=== PATIENT | female | born 1945 | race Caucasian/White ===

== ENCOUNTER 2016-10-23 11:32 | Inpatient (IN) | payer OTHER, MEDICARE ==
[~2016-10-23] VITALS: Ht 162.6 cm; Wt 121.4 kg
[2016-10-23] VITALS (14 sets, daily range): BP systolic 80–218; BP diastolic 55–96; PULSE 65–120; RESP 16–20; TEMP 98.4; O2SAT 95–100
[~2016-10-23 11:32] MED LIST: BACT800T5 PO; HYDR-2768 PO; LANTUS2P SC; LOVA1TAB47 PO; METO25 PO; PRIN20TA2 PO; PROP20TA3 PO
[2016-10-23] MEDS ORDERED: HYDR-3288 PO (11:54)
[2016-10-23] MEDS ORDERED: FURO20TA PO (11:54)
[2016-10-23] MEDS ORDERED: LANTUS2P SQ (11:54)
[2016-10-23] MEDS ORDERED: ASPIRIN 81 MG CHEW TAB PO ONE (12:15)
[2016-10-23] MEDS ORDERED: SODIUM CHLORIDE 0.9% FLUSH 10 ML FLUSH IVF PRN (12:15)
[2016-10-23] MEDS ORDERED: SODIUM CHLORID 0.9% 500 ML INJ 500 ML IV ONE (12:15)
[2016-10-23 12:26] LABS: AUTOMATED NEUTROPHIL # 10.1 TH/MM3 (1.8-7.7); BASOPHIL # 0.1 TH/MM3 (0-0.2); BASOPHIL % 0.6 % (0.0-2.0); EOSINOPHIL # 0.2 TH/MM3 (0-0.4); EOSINOPHIL % 1.5 % (0.0-4.0); HEMATOCRIT 32.9 % (35.0-46.0); LYMPH % 17.9 % (9.0-44.0); LYMPHOCYTE # 2.3 TH/MM3 (1.0-4.8); MEAN CELL VOLUME 84.2 FL (80.0-100.0); MEAN CORPUSCULAR HEMOGLOBIN 26.5 PG (27.0-34.0); MEAN CORPUSCULAR HGB CONC 31.4 % (32.0-36.0); MONO % 2.2 % (0.0-8.0); NEUT % 77.8 % (16.0-70.0); PLATELET COUNT 524 TH/MM3 (150-450); RED BLOOD COUNT 3.91 MIL/MM3 (4.00-5.30); RED CELL DISTRIBUTION WIDTH 20.2 % (11.6-17.2)
[2016-10-23 12:28] LABS: HEMO FLAGS AUTO DIFF
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
[2016-10-23 12:36] LABS: CHLORIDE 104 MEQ/L (98-107); POTASSIUM 5.7 MEQ/L (3.5-5.1); SODIUM (NA) 135 MEQ/L (136-145)
[2016-10-23 12:40] LABS: ANION GAP 10 MEQ/L (5-15); BICARBONATE 21.2 MEQ/L (21.0-32.0); BLOOD UREA NITROGEN 64 MG/DL (7-18); MAGNESIUM 2.2 MG/DL (1.5-2.5)
[2016-10-23 12:41] LABS: APTT (PATIENT) 28.7 SEC (24.3-30.1); PROTHROMBIN TIME - PATIENT 10.7 SEC (9.8-11.6)
[2016-10-23 12:43] LABS: ALT (GPT) 18 U/L (10-53); AST (GOT) 14 U/L (15-37); GLOMERULAR FILTRATION RATE 22 ML/MIN (>89)
[2016-10-23 12:44] LABS: TOTAL BILIRUBIN ADULT 0.4 MG/DL (0.2-1.0)
[2016-10-23 12:46] LABS: ALKALINE PHOSPHATASE 203 U/L (45-117)
[2016-10-23 12:49] LABS: ROULEAUX PRESENT (NORMAL)
[2016-10-23 12:50] LABS: PLATELET ESTIMATE SMEAR HIGH (NORMAL); PLATELET MORPHOLOGY NORMAL (NORMAL); SCAN/DIFF AUTO DIFF CONFIRMED
[2016-10-23 12:52] LABS: CREATINE KINASE 31 U/L (26-192)
--- NOTE | 2016-10-23 13:34 | RADHPO ---
EXAM DATE/TIME: 10/23/2016 12:53 [facility] COMPARISON: CHEST SINGLE AP, October 08, 2014, 20:37. INDICATIONS : Shortness of breath since April and tachycardic at last doctors visit; sent by doctor. MEDICAL HISTORY : Hypertension. Diabetes mellitus type II. CVA. SURGICAL HISTORY : None. ENCOUNTER: Initial ACUITY: 4 - 6 months PAIN SCORE: 0/10 LOCATION: Bilateral chest FINDINGS: Submaximal inspiration with elevation of both hemidiaphragms. No definite areas of consolidation see n. The heart is upper limits normal size. CONCLUSION: No gross abnormality seen on this semiupright film in mid expiration. Anthony Lockhart MD on October 23, 2016 at 13:32 Board Certified Radiologist. This report was verified electronically.
[2016-10-23] MEDS ORDERED: MORPHINE SULFATE 4 MG/ML INJ SQ ONE (13:45)
[2016-10-23] MEDS ORDERED: MORPHINE SULFATE 4 MG/ML INJ IV PUSH ONE (14:00)
[2016-10-23] MEDS ORDERED: INSULIN HUMAN REGULAR 1,000 UNITS/10 ML VIAL IV PUSH ONE ×2 (14:45→19:15)
[2016-10-23] MEDS ORDERED: SODIUM BICARBONATE 8.4% SOLN 50 MEQ/50 ML VIAL SLOW IVP ONE (14:45)
[2016-10-23] MEDS ORDERED: CALCIUM GLUCONATE 10% 1 GM/10 ML VIAL SLOW IVP ONE (14:45)
[2016-10-23] MEDS ORDERED: DEXTROSE 50% IN WATER 50 ML VIAL(D50) IV PUSH ONE ×2 (14:45→19:15)
[2016-10-23] MEDS ORDERED: SODIUM POLYSTYRENE SULFONATE SUSP 15 GM/60 ML CUP PO ONE (14:45)
--- NOTE | 2016-10-23 15:21 | RADHPO ---
EXAM DATE/TIME: 10/23/2016 13:47 [facility] COMPARISON: No previous studies available for comparison. INDICATIONS : Bilateral leg swelling and pain. MEDICAL HISTORY : Hypercholesterolemia. Hypertension. Stroke. Arthritis. Diabetes. Morbid obese. SURGICAL HISTORY : Appendectomy.Cholecystectomy. Total knee replacement, left. ENCOUNTER: Initial ACUITY: 4 - 6 months PAIN SCORE: 6/10 LOCATION: Bilateral legs. TECHNIQUE: Venous ultrasound of the left and right leg was performed from the inguinal ligament to the proximal calf. Real-time, color Doppler and spectral tracing, compression and augmentation techniques were us ed. FINDINGS: RIGHT LEG: Prominent soft tissue swelling does compromise image quality. There is normal compressibility of the deep venous system from the inguinal region to the proximal calf. No echogenic clot is seen in the lumen of the common femoral, femoral, popliteal, and posterior tibial veins. There is a normal respo nse of the venous system to distal augmentation. LEFT LEG: Prominent soft tissue swelling does compromise image quality. There is normal compressibility of the deep venous system from the inguinal region to the proximal calf. No echogenic clot is seen in the lumen of the common femoral, femoral, popliteal, and posterior tibial veins. There is a normal respo nse of the venous system to distal augmentation. CONCLUSION: The study is negative for deep venous thrombosis bilateral lower extremity. Anthony Lockhart MD on October 23, 2016 at 15:09 Board Certified Radiologist. This report was verified electronically.
[2016-10-23] MEDS ORDERED: VANCOMYCIN INJ 1,000 MG in SODIUM CHLOR 0.9% 250 ML INJ 250 ML IV ONE (15:30)
[2016-10-23] MEDS ORDERED: cefTRIAXone INJ 1,000 MG in SODIUM CHLORIDE 0.9% INJ 100 ML IV ONE (15:45)
[2016-10-23] MEDS ORDERED: DEXTROSE 50% IN WATER 50 ML VIAL(D50) IV PUSH PRN (15:45)
[2016-10-23] MEDS ORDERED: GLUCAGON 1 MG/ML VIAL OTHER PRN (15:45)
[2016-10-23] MEDS ORDERED: SODIUM CHLOR 0.9% 1000 ML INJ 1,000 ML IV SCH (15:48)
[2016-10-23] MEDS ORDERED: ACETAMINOPHEN 325 MG TAB PO PRN (16:00)
[2016-10-23] MEDS ORDERED: NALOXONE HCL 0.4 MG/ML AMP IV PRN (16:00)
[2016-10-23] MEDS ORDERED: guaiFENesin/CODEINE SYRUP 200 MG/20 MG/10 ML CUP PO PRN (16:00)
[2016-10-23] MEDS ORDERED: NITROGLYCERIN 0.4 MG SL 25 TABS/BTL SL PRN (16:00)
[2016-10-23] MEDS ORDERED: BISACODYL 10 MG SUPP RECTAL PRN (16:00)
[2016-10-23] MEDS ORDERED: INSULIN HUMAN REGULAR 1,000 UNITS/10 ML VIAL SQ ONE (16:15)
[2016-10-23] MEDS: INSULIN ASPART SUPPLEMENTAL SCALE SQ SCH ×2 (16:36→21:00)
[2016-10-23 16:48] LABS: BLOOD, URINE LARGE (NEG); GLUCOSE,URINE NEG (NEG); KETONE, URINE NEG (NEG); NITRITE,URINE NEG (NEG); PH, URINE 5.5 (5.0-8.5)
[2016-10-23 17:04] LABS: URINE COLOR YELLOW (YELLW/STRAW)
[2016-10-23 17:05] LABS: MUCUS URINE FEW /lpf (OCC)
[2016-10-23 17:06] LABS: BACTERIA, URINE FEW /hpf; COMMENT (UR) CULTURE INDICATED; CULTURE IF INDICATED CULTURE INDICATED; SQUAMOUS EPITHELIAL CELL URINE 0-5 /hpf (0-5)
[2016-10-23] MEDS: PIPERACIL-TAZO 3.375 GM PREMIX 50 ML IV SCH (18:09)
[2016-10-23 18:14] LABS: POTASSIUM 5.7 MEQ/L (3.5-5.1)
[2016-10-23] MEDS: HEPARIN SODIUM - SQ 10,000 UNITS/ML VIAL SQ SCH (18:35)
[2016-10-23] MEDS: MORPHINE SULFATE 4 MG/ML INJ IV PRN (18:57)
[2016-10-23 18:58] LABS: CREATINE KINASE 34 U/L (26-192)
[2016-10-23] MEDS ORDERED: cloNIDine HCL 0.1 MG TAB PO PRN (19:15)
[2016-10-23] MEDS ORDERED: RESP: ALBUTEROL CONC 2.5 MG/0.5 ML NEB INH ONE (19:15)
[2016-10-23] MEDS ORDERED: CALCIUM GLUCONATE 10% 1 GM/10 ML VIAL IV ONE (19:15)
[2016-10-23] MEDS ORDERED: hydrALAZINE HCL 20 MG/ML VIAL IV PRN (19:15)
[2016-10-23 19:49] LABS: FERRITIN 23 NG/ML (8-252); TRANSFERRIN IRON PROFILE 249 MG/DL (200-360)
[2016-10-23] MEDS ORDERED: INSULIN DETEMIR 100 UNITS/ML VIAL SQ SCH (21:00)
[2016-10-23] MEDS: SODIUM CHLORIDE 0.9% FLUSH 10 ML FLUSH IV FLUSH SCH (21:00)
[2016-10-23 21:26] LABS: HEMOGLOBIN A1a 1.2 %; HEMOGLOBIN A1b 2.7 %; HEMOGLOBIN Ao 78.4 %; HEMOGLOBIN P3 7.4 %
[2016-10-23] MEDS: SODIUM POLYSTYRENE SULFONATE SUSP 15 GM/60 ML CUP PO SCH (22:27)
[2016-10-23] MEDS: guaiFENesin E.R. 600 MG TAB PO SCH (23:30)
--- NOTE | 2016-10-23 23:51 | EKG ---
Date Performed: 10/23/2016 Time Performed: 12:11:26 PTAGE: 71 years EKG: Possible ectopic atrial tachycardia Baseline artifact Lateral ST-T changes may be due to my ocardial ischemia Low QRS voltages in precordial leads Abnormal ECG PREVIOUS TRACING : 10/08/2014 20.47 Compared to the previous tracing, previously normal Sinus r hym DOCTOR: Axel Hadley Interpretating Date/Time 10/23/2016 23:50:22
[2016-10-24] VITALS (51 sets, daily range): BP systolic 94–153; BP diastolic 41–82; PULSE 50–116; RESP 3–28; TEMP 97.3–99.4; O2SAT 86–100
[2016-10-24 00:40] LABS: POTASSIUM 5.7 MEQ/L (3.5-5.1)
[2016-10-24 00:56] LABS: BICARBONATE 22.2 MEQ/L (21.0-32.0); MAGNESIUM 2.1 MG/DL (1.5-2.5)
[2016-10-24] MEDS: PIPERACIL-TAZO 3.375 GM PREMIX 50 ML IV SCH ×2 (01:06→06:52)
[2016-10-24] MEDS ORDERED: CALCIUM GLUCONATE 10% 1 GM/10 ML VIAL IV PUSH ONE (03:45)
[2016-10-24] MEDS ORDERED: DEXTROSE 50% IN WATER 50 ML VIAL(D50) IV PUSH ONE (03:45)
[2016-10-24] MEDS ORDERED: SODIUM POLYSTYRENE SULFONATE 30 GM/120 ML ENEMA RECTAL ONE (03:45)
[2016-10-24] MEDS ORDERED: INSULIN HUMAN REGULAR 1,000 UNITS/10 ML VIAL IV PUSH ONE ×2 (03:45→08:45)
--- NOTE | 2016-10-24 04:20 | RADHPO ---
EXAM DATE/TIME: 10/24/2016 04:05 [facility] COMPARISON: No previous studies available for comparison. INDICATIONS : Short of breath. MEDICAL HISTORY : Hypertension. Diabetes mellitus type II. CVA. SURGICAL HISTORY : None. ENCOUNTER: Subsequent ACUITY: 4 - 6 months PAIN SCORE: Non-responsive. LOCATION: Bilateral chest FINDINGS: A single view of the chest demonstrates the lungs to be symmetrically aerated without evidence of mas s, infiltrate or effusion. Bilateral pulmonary hilar vascular congestion. The cardiomediastinal con tours are unremarkable. Osseous structures are intact. CONCLUSION: Mild pulmonary vascular congestion increased from the previous study Yusuf Meza MD on October 24, 2016 at 4:18 Board Certified Radiologist. This report was verified electronically.
[2016-10-24] MEDS ORDERED: SODIUM POLYSTYRENE SULFONATE SUSP 15 GM/60 ML CUP RECTAL ONE (05:00)
[2016-10-24] MEDS: HEPARIN SODIUM - SQ 10,000 UNITS/ML VIAL SQ SCH ×2 (06:54→18:36)
[2016-10-24] MEDS: INSULIN ASPART SUPPLEMENTAL SCALE SQ SCH ×3 (07:00→22:34)
[2016-10-24] MEDS ORDERED: FUROSEMIDE 40 MG/4 ML VIAL IV PUSH ONE (07:15)
[2016-10-24 07:30] LABS: BLOOD GAS BASE EXCESS -6.4 mmol/L (-2-2); BLOOD GAS CARBOXYHEMOGLOBIN 1.4 % (0-4); BLOOD GAS HCO3 23 mmol/L (22-26); BLOOD GAS O2 HGB SATURATION 92 % (90-100); BLOOD GAS OXYGEN CONTENT 12.2 Vol % (12.0-20.0); BLOOD GAS PCO2 84 mmHg (38-42); BLOOD GAS PO2 81 mmHg (61-120); BLOOD GAS TOTAL HGB 9.4 G/DL (12.0-16.0)
[2016-10-24 07:31] LABS: CRITICAL VALUE YES; DRAW SITE RT RADIAL; FIO2 28 %; LITER FLOW 2 L/M; NUMBER OF ARTERIAL PUNCTURES 1; OXYGEN DEVICE NASAL CANNULA; STAT YES; ULNAR PULSE PRESENT
[2016-10-24] MEDS ORDERED: SUCCINYLCHOLINE CHLORIDE 200 MG/10 ML VIAL ONE (07:37)
[2016-10-24 07:38] LABS: AUTOMATED NEUTROPHIL # 14.3 TH/MM3 (1.8-7.7); BASOPHIL # 0.6 TH/MM3 (0-0.2); BASOPHIL % 3.6 % (0.0-2.0); EOSINOPHIL # 0.1 TH/MM3 (0-0.4); EOSINOPHIL % 0.7 % (0.0-4.0); HEMATOCRIT 31.8 % (35.0-46.0); LYMPH % 8.5 % (9.0-44.0); LYMPHOCYTE # 1.4 TH/MM3 (1.0-4.8); MEAN CORPUSCULAR HEMOGLOBIN 26.1 PG (27.0-34.0); MONO % 3.1 % (0.0-8.0); NEUT % 84.1 % (16.0-70.0); PLATELET COUNT 512 TH/MM3 (150-450); RED BLOOD COUNT 3.66 MIL/MM3 (4.00-5.30); RED CELL DISTRIBUTION WIDTH 20.8 % (11.6-17.2); WHITE BLOOD COUNT 16.9 TH/MM3 (4.0-11.0)
[2016-10-24] MEDS ORDERED: ETOMIDATE 20 MG/10 ML VIAL ONE (07:38)
[2016-10-24 07:41] LABS: HEMO FLAGS AUTO DIFF; POTASSIUM 6.1 MEQ/L (3.5-5.1)
[2016-10-24 07:44] LABS: BICARBONATE 22.4 MEQ/L (21.0-32.0)
--- NOTE | 2016-10-24 07:54 | PD ---
Physical Exam Date Seen by Provider: Oct 24, 2016 Time Seen by Provider: 07:52 Narrative I was called by Dr. Leahy to intubate the patient. She was unresponsive and her ABG was suggestive of Respiratory Acidosis. The son just came at that time and he spoke with the son. I was present during the discussion. He agreed to intubation. Please refer to my procedure note Data Data Last Documented VS Vital Signs Date Time Temp Pulse Resp B/P Pulse Ox O2 Delivery O2 Flow Rate FiO2 10/23/16 15:43 110 20 104/73 96 10/23/16 11:39 98.4 Orders Electrocardiogram (10/23/16 12:07) B-Type Natriuretic Peptide (10/23/16 12:07) Ckmb (Isoenzyme) Profile (10/23/16 12:07) Complete Blood Count With Diff (10/23/16 12:07) Comprehensive Metabolic Panel (10/23/16 12:07) Magnesium (Mg) (10/23/16 12:07) Prothrombin Time / Inr (Pt) (10/23/16 12:07) Act Partial Throm Time (Ptt) (10/23/16 12:07) Troponin I (10/23/16 12:07) Chest, Single Ap (10/23/16 12:07) Ecg Monitoring (10/23/16 12:07) Iv Access Insert/Monitor (10/23/16 12:07) Oximetry (10/23/16 12:07) Aspirin Chew (Aspirin Chew) (10/23/16 12:15) Sodium Chloride 0.9% Flush (Ns Flush) (10/23/16 12:15) Sodium Chlorid 0.9% 500 Ml Inj (Ns 500 M (10/23/16 12:15) Us Leg Venous Doppler Bilat (10/23/16 ) Blood Culture (10/23/16 12:10) Bedside Glucose PARK.AC&HS (10/23/16 12:10) Morphine Inj (Morphine Inj) (10/23/16 13:45) Morphine Inj (Morphine Inj) (10/23/16 14:00) Calcium Gluconate Inj (Calcium Gluconate (10/23/16 14:45) Insulin Human Regular Inj (Novolin R Inj (10/23/16 14:45) Dextrose 50% In [place] (Vial) Inj (D50w (Vi (10/23/16 14:45) Sodium Bicarbonate 8.4% Inj (Sodium Bica (10/23/16 14:45) Sodium Polysty Sulfate Liq (Kayexalate L (10/23/16 14:45) Vancomycin Inj (Vancomycin Inj) (10/23/16 15:30) Blood Glucose Goal (Criteria) (10/23/16 15:39) Hypoglycemia 51 - 69 Mg/Dl (10/23/16 15:39) Hypoglycemia 50 Mg/Dl Or < (10/23/16 15:39) Notify Dr: Other (10/23/16 15:39) Dextrose 50% In [place] (Vial) Inj (D50w (Vi (10/23/16 15:45) Glucagon Inj (Glucagon Inj) (10/23/16 15:45) Insulin Aspart Supplemtl Scale (Novolog (10/23/16 16:00) Admit Order (Ed Use Only) (10/23/16 15:55) Labs Laboratory Tests Test 10/23/16 12:05 White Blood Count 13.0 TH/MM3 Red Blood Count 3.91 MIL/MM3 Hemoglobin 10.4 GM/DL Hematocrit 32.9 % Mean Corpuscular Volume 84.2 FL Mean Corpuscular Hemoglobin 26.5 PG Mean Corpuscular Hemoglobin 31.4 % Concent Red Cell Distribution Width 20.2 % Platelet Count 524 TH/MM3 Mean Platelet Volume 8.2 FL Neutrophils (%) (Auto) 77.8 % Lymphocytes (%) (Auto) 17.9 % Monocytes (%) (Auto) 2.2 % Eosinophils (%) (Auto) 1.5 % Basophils (%) (Auto) 0.6 % Neutrophils # (Auto) 10.1 TH/MM3 Lymphocytes # (Auto) 2.3 TH/MM3 Monocytes # (Auto) 0.3 TH/MM3 Eosinophils # (Auto) 0.2 TH/MM3 Basophils # (Auto) 0.1 TH/MM3 CBC Comment AUTO DIFF Differential Comment AUTO DIFF CONFIRMED Platelet Estimate HIGH Platelet Morphology Comment NORMAL Basophilic Stippling FAINT Rouleau PRESENT Prothrombin Time 10.7 SEC Prothromb Time International 1.0 RATIO Ratio Activated Partial 28.7 SEC Thromboplast Time Sodium Level 135 MEQ/L Potassium Level 5.7 MEQ/L Chloride Level 104 MEQ/L Carbon Dioxide Level 21.2 MEQ/L Anion Gap 10 MEQ/L Blood Urea Nitrogen 64 MG/DL Creatinine 2.20 MG/DL Estimat Glomerular Filtration 22 ML/MIN Rate Random Glucose 314 MG/DL Calcium Level 8.5 MG/DL Magnesium Level 2.2 MG/DL Total Bilirubin 0.4 MG/DL Aspartate Amino Transf 14 U/L (AST/SGOT) Alanine Aminotransferase 18 U/L (ALT/SGPT) Alkaline Phosphatase 203 U/L Total Creatine Kinase 31 U/L Troponin I 0.13 NG/ML B-Type Natriuretic Peptide 38 PG/ML Total Protein 8.0 GM/DL Albumin 2.6 GM/DL [facility] Supervised Visit with RUFINO: No Procedures Procedure Narrative After the risks and benefits were discussed the following procedure was performed: INTUBATION: The patient was put in optimal position for the procedure. Rapid sequence intubation was initiated by me using 20 milligrams of etomidate IV and 100 milligrams of succinylcholine IV. The patient was intubated with a 7.5 cuffed endotracheal tube. Tube placement was confirmed by visualization of the tube and balloon passing through the cords, capnometry and subsequent chest x-ray. Breath sounds were equal and well aerated bilaterally postintubation. No breath sounds over stomach. Patient tolerated procedure well. It was a very difficult intubation and a bougie was used to assist the intubation. Diagnosis Primary Impression: Hyperkalemia Additional Impressions: Hyperglycemia Renal insufficiency Sepsis NSTEMI (non-ST elevated myocardial infarction) Riley Solorio MD Oct 24, 2016 07:53
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
--- NOTE | 2016-10-24 08:26 | RADHPO ---
EXAM DATE/TIME: 10/24/2016 08:13 [facility] COMPARISON: CHEST SINGLE AP, October 24, 2016, 4:05. INDICATIONS : Post intubation. MEDICAL HISTORY : Hypercholesterolemia. Hypertension. Stroke. Arthritis. Diabetes. Morbid obese. SURGICAL HISTORY : Umbilical hernia repair. Appendectomy.Cholecystectomy. Total knee replacement, left. ENCOUNTER: Subsequent ACUITY: 1 day PAIN SCORE: Non-responsive. LOCATION: chest FINDINGS: A single view of the chest demonstrates diffuse interstitial vascular prominence and bibasilar airspa ce disease. Blunted costophrenic angles indicative of bilateral effusions. Endotracheal tube has been placed and is just above the kimberlyn. Heart is obscured by basilar opacity but does appear mildly enlarged. CONCLUSION: Interval placement of endotracheal tube which is approximately 1 cm above the kimberlyn. Interstitial vascular congestion and bibasilar airspace disease. Small bilateral effusions. Kenny Hagen MD on October 24, 2016 at 8:23 Board Certified Radiologist. This report was verified electronically.
[2016-10-24] MEDS ORDERED: SODIUM POLYSTYRENE SULFONATE SUSP 15 GM/60 ML CUP PO ONE (08:45)
[2016-10-24] MEDS ORDERED: DEXTROSE 50% IN WATER 50 ML SYRINGE IV ONE (08:45)
[2016-10-24] MEDS ORDERED: SODIUM BICARBONATE 8.4% INJ 50 MEQ/50 ML SYR IV PUSH ONE (08:45)
[2016-10-24 08:49] LABS: SCAN/DIFF AUTO DIFF CONFIRMED
[2016-10-24] MEDS ORDERED: CALCIUM GLUCONATE INJ 1 GM in SODIUM CHLORIDE 0.9% INJ 100 ML IV ONE (09:00)
[2016-10-24] MEDS: PROPOFOL 1000 MG/100 ML INJ 100 ML IV SCH ×3 (10:52→22:33)
[2016-10-24 11:08] LABS: BLOOD GAS BASE EXCESS -3.3 mmol/L (-2-2); BLOOD GAS CARBOXYHEMOGLOBIN 1.5 % (0-4); BLOOD GAS HCO3 22 mmol/L (22-26); BLOOD GAS METHEMOGLOBIN 1.1 % (0-2); BLOOD GAS O2 HGB SATURATION 96 % (90-100); BLOOD GAS OXYGEN CONTENT 12.5 Vol % (12.0-20.0); BLOOD GAS PCO2 49 mmHg (38-42); BLOOD GAS PO2 115 mmHg (61-120); BLOOD GAS TOTAL HGB 9.1 G/DL (12.0-16.0); CRITICAL VALUE YES; OXYGEN DEVICE VENTILATOR; TEMP CORR TO 98.6
[2016-10-24 11:10] LABS: DRAW SITE RT RADIAL; FIO2 50 %; NUMBER OF ARTERIAL PUNCTURES 1; STAT NO; ULNAR PULSE PRESENT; VENT SETTINGS AC/16/500/5PEEP
[2016-10-24] MEDS: PIPERACIL-TAZO 2.25 GM PREMIX 50 ML IV SCH ×2 (13:13→19:05)
[2016-10-24] MEDS: PANTOPRAZOLE SODIUM 40 MG VIAL IV PUSH SCH (13:33)
[2016-10-24] MEDS: FUROSEMIDE 40 MG/4 ML VIAL IV PUSH SCH ×2 (13:33→18:36)
[2016-10-24] MEDS: SODIUM POLYSTYRENE SULFONATE SUSP 15 GM/60 ML CUP PO SCH (13:43)
--- NOTE | 2016-10-24 13:43 | MB ---
cc: PRIYANKA SHANNON M.D. DATE OF CONSULTATION 10/24/2016 DATE OF 1945 REASON FOR CONSULTATION The patient is a 71-year-old female with past medical history of hypertension, diabetes mellitus, hyperlipidemia, obstructive sleep apnea on C-PAP and CVA with residual left-sided weakness. Initially she presented to [facility] ED for evaluation of an irregular heartbeat per medical records. The patient apparently went to see her primary care physician, Dr. Alonzo, yesterday and was noted to have an irregular heart rate and referred her to the ER for further evaluation and management. On arrival to the ED, the patient was in renal failure with a BUN of 64, creatinine 2.20, hyperkalemic with a potassium level of 5.7. In addition, she had mild elevation in troponin at 0.13 and leukocytosis with a WBC of 13.0. The patient also has been having increased swelling and erythema of her lower extremities. She was initially admitted under [facility] service and when seen by Dr. Leahy this morning, she was not responsive to any verbal or tactile stimuli. A stat ABG was performed which showed acute hypercapnic respiratory failure with a pH of 7.06, CO2 84, pAO2 81, bicarb 23, sats of 92%. She was subsequently intubated by the ED physician with Etomidate and succinylcholine and placed on full mechanical ventilation. A repeat ABG post-intubation showed a pH of 7.29, CO2 49, pAO2 of 115, bicarb 32 and sats 96%. Her labs from this morning showed worsening hyperkalemia with potassium level of 6.1 and creatinine 2.30. She was treated with IV insulin, Albuterol sulfate, calcium gluconate, bicarb, Kayexalate and Lasix. A stat CT scan of the brain without contrast was ordered by the primary team. The patient was subsequently transferred to [facility] for further evaluation and management. She was seen by Dr. Dill from nephrology service. A chest x-ray post-intubation showed ET tube above the kimberlyn in addition to pulmonary vascular congestion and bibasilar airspace disease. She is currently sedated with Diprivan and on assist control ventilation. PAST MEDICAL HISTORY Significant for: 1. Hypertension 2. Diabetes 3. Hyperlipidemia 4. History of CVA with residual left-sided weakness. 5. Obstructive sleep apnea PAST SURGICAL HISTORY 1. Previous hernia repair. 2. Previous appendectomy. 3. Cholecystectomy 4. Right hip replacement ALLERGIES NO KNOWN DRUG ALLERGIES. FAMILY HISTORY Unobtainable SOCIAL HISTORY History of chronic tobacco use per records. No history of alcohol or illicit drug use. CURRENT MEDICATIONS Reported medications include: 1. Insulin 2. Lasix 3. [place] REVIEW OF SYSTEMS As per HPI. The rest of the review of system unobtainable. PHYSICAL EXAMINATION A 71-year-old female intubated for acute hypercapnic respiratory acidosis. VITAL SIGNS: Temperature of 98.7, pulse of 106, respiratory rate of 18, blood pressure 135/71, saturation 100% vent setting assist control rate of 16, tidal volume 550, PEEP of 5, FIO2 40%. HEENT: Atraumatic, normocephalic. Pupils equal, round and active to light and accommodation. Extraocular muscles intact. NECK: Supple. No JVD, adenopathy or thyromegaly. Trachea midline. Orally intubated. CARDIOVASCULAR: Tachycardiac, normal S1-S2. No murmurs, rubs or gallops noted. PULMONARY: Bilateral equal entry with a few coarse breath sounds. ABDOMEN: Soft, obese, nontender, no distension. Positive bowel sounds. EXTREMITIES: No cyanosis or clubbing, 2+ edema with erythema of the lower extremities and venostasis changes noted bilaterally. NEUROLOGIC: Intubated and sedated with Diprivan. LABORATORY DATA Sodium of 140, potassium 6.1, chloride 108, CO2 22, BUN 63, creatinine 2.30, glucose 238. WBC 16.9, hemoglobin 9.6, hematocrit 31, platelet count of 512. Urinalysis, negative leukocyte esterase, 9-14 WBC, few bacteria. RADIOGRAPHY Chest x-ray post-intubation showed ET tube above the kimberlyn, pulmonary vascular congestion and bibasilar airspace disease. Doppler ultrasound of the lower extremity negative for DVT. EKG showed possible ectopic atrial tachycardia with a rate of 116 beats per minute, lateral ST-T wave changes. IMPRESSION 1. Acute hypercapnic respiratory failure. 2. Acute renal failure. 3. Hyperkalemia 4. Encephalopathy multifactorial likely secondary to CO2 narcosis and uremia. 5. Mild elevation in troponin. 6. Leukocytosis 7. Hypertension 8. Hyperglycemia with underlying history of diabetes mellitus. 9. Cellulitis of the lower extremities. 10. UTI 11. Obstructive sleep apnea RECOMMENDATIONS 1. Continue with Diprivan infusion for sedation and daily sedation vacation. 2. The patient is for CT scan of the brain without contrast to rule out acute intracranial process. 3. Continue with vent support and maintain sats above 92%. 4. Bronchodilators in the form of DuoNeb q6 and will initiate ICU vent bundle. 5. We will repeat ABG in one hour after vent changes. 6. Monitor heart rate and blood pressure closely and maintain MAP greater than 65 mmHg. 7. Lactic acid level measured 1.0. 8. We will obtain a 2-D echo to evaluate LV function and to rule out regional wall motion abnormalities. 9. Her mild elevation in troponin is likely secondary to renal dysfunction and respiratory failure. 10. Monitor renal function I's and O's and avoid nephrotoxins. 11. She was treated for hyperkalemia for hyperkalemia with IV insulin, bicarb, Kayexalate, calcium gluconate and Lasix. 12. We will repeat potassium level now. 13. Case discussed with Dr. Dill. We will continue with diuretics, Lasix 40 mg IV b.i.d. 14. Continue with antibiotics in the form of Zosyn and monitor for signs of infections which include fever and WBC. In Addition, the patient was given one dose of vancomycin yesterday. 15. Follow up on blood and urine cultures which were performed yesterday. 16. We will obtain a sputum culture with gram stain. 17. Place on Protonix 40 mg IV daily for GI prophylaxis. 18. We will initiate tube feeds for nutritional support within the next 24 hours if remains intubated. 19. Place on sliding scale insulin with Accu-Chek q. 6-hour for glycemic control. 20. TSH level measured at 5.2. 21. Monitor CBC. 22. GI prophylaxis with Protonix 40 mg IV daily and DVT prophylaxis with heparin subcu. 23. Doppler ultrasound of the lower extremities negative for DVT. Critical care time 35 minutes excluding procedures. MD ELE Ayoub/ROXANA /12:12 PM /1:20 PM
--- NOTE | 2016-10-24 17:17 | RADRPT ---
EXAM DATE/TIME: 10/24/2016 16:56 [facility] COMPARISON: No previous studies available for comparison. INDICATIONS : Altered mental status. RADIATION DOSE: 48.86 CTDIvol (mGy) MEDICAL HISTORY : Hypertension. Cardiovascular disease Cerebrovascular disease.Diabetes SURGICAL HISTORY : Cholecystectomy. Appendectomy. ENCOUNTER: Initial ACUITY: 1 day PAIN SCALE: Non-responsive LOCATION: cranial TECHNIQUE: Multiple contiguous axial images were obtained of the head. Using automated exposure control and adj ustment of the mA and/or kV according to patient size, radiation dose was kept as low as reasonably a chievable to obtain optimal diagnostic quality images. FINDINGS: CEREBRUM: The ventricles are normal for age. No evidence of midline shift, mass lesion, hemorrhage or acute in farction. No extra-axial fluid collections are seen. POSTERIOR FOSSA: The cerebellum and brainstem are intact. The 4th ventricle is midline. The cerebellopontine angle i s unremarkable. EXTRACRANIAL: The visualized portion of the orbits is intact. There is an air-fluid level in the right maxillary s inus and opacification of multiple right ethmoid air cells and a air-fluid level in the medial right frontal sinus. Orotracheal tube in place. SKULL: The calvaria is intact. No evidence of skull fracture. CONCLUSION: 1. No acute findings in the brain. 2. Right paranasal sinus disease with air-fluid levels. Anthony Lockhart MD on October 24, 2016 at 17:15 Board Certified Radiologist. This report was verified electronically.
[2016-10-24] MEDS: RESP: ALBUTEROL 2.5 MG/IPRATROPIUM 0.5 MG NEB (SCH) NEB ×2 (17:25→21:33)
[2016-10-24 18:29] LABS: BLOOD GAS BASE EXCESS -1.3 mmol/L (-2-2); BLOOD GAS CARBOXYHEMOGLOBIN 1.8 % (0-4); BLOOD GAS HCO3 23 mmol/L (22-26); BLOOD GAS METHEMOGLOBIN 1.5 % (0-2); BLOOD GAS O2 HGB SATURATION 95 % (90-100); BLOOD GAS OXYGEN CONTENT 11.4 Vol % (12.0-20.0); BLOOD GAS PCO2 40 mmHg (38-42); BLOOD GAS PO2 111 mmHg (61-120); BLOOD GAS TOTAL HGB 8.4 G/DL (12.0-16.0); TEMP CORR TO 98.6
[2016-10-24 18:30] LABS: CRITICAL VALUE NO; DRAW SITE RT RADIAL; FIO2 40 %; NUMBER OF ARTERIAL PUNCTURES 1
[2016-10-24 18:31] LABS: STAT NO; ULNAR PULSE PRESENT
[2016-10-24] MEDS: SODIUM CHLORIDE 0.9% FLUSH 10 ML FLUSH IV FLUSH SCH ×2 (18:35→21:00)
[2016-10-24] MEDS ORDERED: CHLORHEXIDINE GLUCONATE 2 % 1 PACK (2 CLOTHS)(extra cloths) TOPICAL PRN (19:30)
[2016-10-24] MEDS: guaiFENesin E.R. 600 MG TAB PO SCH (21:00)
--- NOTE | 2016-10-24 21:03 | EC ---
Study Study Date:10/24/2016 STUDY CONCLUSIONS SUMMARY LEFT VENTRICLE: The cavity size was normal. Wall thickness was increased in a pattern of mild LVH. Systolic function was normal. The estimated ejection fraction was 55%. Wall motion was normal; there were no regional wall motion abnormalities. If LV function is below 40, please consider prescribing an ACEI or ARB or document rationale for non-use. PROCEDURE DATA STUDY STATUS: Elective. Procedure: Transthoracic echocardiography. Image quality was good. Scanning was performed from the parasternal, apical, and subcostal acoustic windows. Study completion: The patient tolerated the procedure well. Transthoracic echocardiography. M-mode, complete 2D, complete spectral Doppler, and color Doppler. Height: Height: 66in. Weight: Weight: 260.5lb. Body mass index: BMI: 42.1kg/m^2. Body surface area: BSA: 2.24m^2. Patient status: Inpatient. CARDIAC ANATOMY LEFT VENTRICLE: The cavity size was normal. Wall thickness was increased in a pattern of mild LVH. Systolic function was normal. The estimated ejection fraction was 55%. Wall motion was normal; there were no regional wall motion abnormalities. AORTIC VALVE: Trileaflet; normal thickness leaflets. Doppler: Transvalvular velocity was within the normal range. There was no stenosis. No regurgitation. Valve area: 2.16cm^2 (Vmax). Indexed valve area: 0.96cm^2/m^2 (Vmax). AORTA: Aortic root: The aortic root was normal in size. MITRAL VALVE: Structurally normal valve. Doppler: Transvalvular velocity was within the normal range. There was no evidence for stenosis. No regurgitation. Valve area by pressure half-time: 4cm^2. Indexed valve area by pressure half-time: 1.79cm^2/m^2. Peak gradient: 5mm Hg (D). LEFT ATRIUM: The atrium was normal in size. RIGHT VENTRICLE: The cavity size was normal. Wall thickness was normal. PULMONIC VALVE: Doppler: Transvalvular velocity was within the normal range. There was no evidence for stenosis. No regurgitation. TRICUSPID VALVE: Structurally normal valve. Doppler: Transvalvular velocity was within the normal range. No regurgitation. PULMONARY ARTERY: The main pulmonary artery was normal-sized. Systolic pressure was within the normal range. RIGHT ATRIUM: The atrium was normal in size. PERICARDIUM: There was no pericardial effusion. SYSTEMIC VEINS: Inferior vena cava: The vessel was normal in size. Patient weight: 260.5lb _Ejection fraction:_ 65-75% _Fractional shortening:_ 32% up to 5Kg 5-11.5Kg 11.6-22.9Kg 23-45Kg 45-57Kg Aortic Root 7-13 <17 13-22 17-27 17-27 LA diam 6-13 <23 24-38 33-47 37-40 RVID 10-17 7-15 7-15 7-18 8-17 LVIDd 12-22 <32 24-38 33-47 37-40 LVPW 2-4 3-6 5-7 6-8 7-8 IVS 2-4 3-6 5-7 6-8 7-8 BASIC MEASUREMENTS ADULT NORMAL Left ventricle LV internal dimension, ED, chordal *34.5 mm 43-52 level, PLAX LV internal dimension, ES, chordal 23.8 mm 23-38 level, PLAX Fractional shortening, chordal level, 31 % >29 PLAX LV posterior wall thickness, ED 12.4 mm IVS/LVPW ratio, ED 0.98 <1.3 Volume, ED, MOD, 1-plane 50 ml Volume, ES, MOD, 1-plane 21 ml Ejection fraction, MOD, 1-plane 58 % Stroke volume, MOD, 1-plane 29 ml Volume index, ED, MOD, 1-plane 22 ml/m^2 Volume index, ES, MOD, 1-plane 9 ml/m^2 Stroke index, MOD, 1-plane 12.9 ml/m^2 Ventricular septum Septal thickness, ED 12.2 mm Aortic valve Leaflet separation 20 mm 15-26 BASIC MEASUREMENTS ADULT NORMAL Aortic valve Leaflet separation 20 mm 15-26 Aorta Root diameter, ED 31 mm 20-37 DOPPLER MEASUREMENTS ADULT NORMAL Aortic valve Peak velocity, S 129 cm/s Valve area, Vmax 2.16 cm^2 Valve area index, Vmax 0.96 cm^2/m^2 Mitral valve Peak E-wave velocity 110 cm/s Peak A-wave velocity 159 cm/s Pressure half-time 55 ms Peak gradient, D 5 mm Hg Peak E/A ratio 0.7 Valve area, pressure half-time 4 cm^2 Valve area index, pressure half-time 1.79 cm^2/m^2 Pulmonic valve Peak velocity, S 111 cm/s LEGEND: Mean values are shown as u=mean value. Asterisk (*) neely values outside specified normal range. Prepared and signed by Don Gaffney [id number]
[2016-10-24 21:18] LABS: BICARBONATE 23.7 MEQ/L (21.0-32.0); POTASSIUM 4.4 MEQ/L (3.5-5.1)
--- NOTE | 2016-10-24 21:57 | MB ---
cc: MARIZOL STEWART MD DATE OF CONSULTATION: 10/24/2016 REASON FOR CONSULTATION Elevated BUN and creatinine. HISTORY OF PRESENT ILLNESS This is a 71-year-old female with a past medical history of hypertension, diabetes mellitus, hyperlipidemia, chronic obstructive pulmonary disease, cerebrovascular accident, transferred here from [facility], came to the hospital because of left-sided weakness. I was called to see the patient because of elevated BUN and creatinine. The patient has a creatinine of 2.0 on presentation and then it is now 2.3. She previously has a creatinine of 1.5-1.6 but this was two years ago. There are no notes from any custom tailor apprentice from before available and the patient is not in a position to give any history. Her potassium was also found to be high at 5.7 on presentation and it went up to 6.1 and after treatment came down and now it is 5.1. The patient was initially admitted and then she was found to be in respiratory distress and she was intubated and transferred here. The arterial blood gas done in the morning shows that the pH was 7.06 and the CO2 was 84. The patient has borderline low blood pressure. Her last chest x-ray showed pulmonary congestion and she was started on diuretics after I discussed with Dr. Bonds. PAST MEDICAL HISTORY 1. Hypertension. 2. Diabetes mellitus. 3. Hyperlipidemia. 4. History of cerebrovascular accident. 5. Sleep apnea. 6. Chronic kidney disease. PAST SURGICAL HISTORY 1. Hernia repair. 2. Appendicectomy. 3. Cholecystectomy. 4. Right hip replacement. REVIEW OF SYSTEMS Cannot be taken since the patient is intubated. SOCIAL HISTORY The patient has a history of smoking in the past. There is no history of heavy alcoholism. FAMILY HISTORY Not available. ALLERGIES SHE HAS NO KNOWN DRUG ALLERGIES. MEDICATIONS Currently she is on - 1. Lasix 40 mg b.i.d. 2. DuoNeb nebulizer. 3. She received a treatment for hyperkalemia. 4. Protonix 40 mg q.24 hours. 5. Heparin 5000 subcu q.12 hours. 6. Zosyn 2.25 grams IV q.6 hours. 7. Propofol as needed. 8. Zofran as needed. PHYSICAL EXAMINATION GENERAL: The patient is intubated and sedated. VITAL SIGNS: Her last blood pressure is 119/66, temperature is 98.8, oxygen saturation on 40% FIO2 is 100%. The lowest recorded blood pressure she has during this admission was 97/41. HEAD, EYES, EARS, NOSE AND THROAT: Pupils are mid constricted. Nonicteric sclerae. Conjunctivae are pale. NECK: Supple. JVD is not elevated. LUNGS: The patient has bilateral decreased air entry with basilar rales and scattered wheezing. HEART: S1, S2. Regular rhythm. ABDOMEN: The abdomen is distended, soft, lax. There is no tenderness. Bowel sounds positive. EXTREMITIES: She has mild edema in the legs. INVESTIGATIONS WBC count is 16.9, hemoglobin 9.6, platelet count 512, neutrophils 84.1%. Sodium is 140, potassium 6.1, chloride 108, bicarb 22.4, BUN 63, creatinine 2.3, the repeat potassium is 5.1, glucose 238, calcium 8.5, troponin-I 0.14, creatine kinase 36. INR 1.0. Urinalysis showing trace protein, large occult blood, RBC 50-99. IMAGING STUDIES The patient has a CT scan of the brain done which shows no acute finding with right paranasal sinus disease and air-fluid level. Chest x-ray was done which shows pulmonary vascular congestion. Ultrasound of the lower extremity was done yesterday and it was negative for deep vein thrombosis. ASSESSMENT AND PLAN 1. Respiratory failure and pneumonia. 2. Chronic kidney disease with a possibility of acute kidney injury. 3. Hyperkalemia. 4. Anemia. 5. History of cerebrovascular accident. 6. Acute respiratory failure. 7. Possible urinary tract infection. The patient has a history of chronic kidney disease and she has minimal proteinuria. Most likely she has hypertensive or renovascular disease and there may be some element of acute worsening because of the UTI and pneumonia and the possible hypotension with ATN. At present I agree with continuing the Lasix and follow the urine output and the BUN and creatinine. The potassium improved with the treatment and we will need to follow this in the morning. Thank you for the consultation. I will follow the patient while she is in the hospital. MD CARMEN Rowan/KATEY /6:28 PM /9:32 PM
[2016-10-25] VITALS (18 sets, daily range): BP systolic 100–128; BP diastolic 48–89; PULSE 80–120; RESP 18–19; TEMP 98.5–99.4; O2SAT 96–100
[2016-10-25] MEDS: PIPERACIL-TAZO 2.25 GM PREMIX 50 ML IV SCH ×5 (02:08→23:57)
[2016-10-25] MEDS: CHLORHEXIDINE GLUCONATE 2 % 1 PACK (2 CLOTHS)(taper/protocol) TOPICAL SCH (02:08)
[2016-10-25] MEDS: RESP: ALBUTEROL 2.5 MG/IPRATROPIUM 0.5 MG NEB (SCH) NEB ×4 (03:14→19:42)
[2016-10-25] MEDS: PROPOFOL 1000 MG/100 ML INJ 100 ML IV SCH ×5 (04:10→23:57)
[2016-10-25] MEDS: INSULIN ASPART SUPPLEMENTAL SCALE SQ SCH ×4 (05:00→22:48)
[2016-10-25 06:23] LABS: AUTOMATED NEUTROPHIL # 9.1 TH/MM3 (1.8-7.7); BASOPHIL # 0.1 TH/MM3 (0-0.2); BASOPHIL % 0.6 % (0.0-2.0); EOSINOPHIL # 0.1 TH/MM3 (0-0.4); EOSINOPHIL % 0.9 % (0.0-4.0); HEMATOCRIT 26.5 % (35.0-46.0); HEMO FLAGS DIFF FINAL; LYMPH % 18.4 % (9.0-44.0); LYMPHOCYTE # 2.3 TH/MM3 (1.0-4.8); MEAN CORPUSCULAR HEMOGLOBIN 25.6 PG (27.0-34.0); MEAN CORPUSCULAR HGB CONC 30.1 % (32.0-36.0); MONO % 5.9 % (0.0-8.0); NEUT % 74.2 % (16.0-70.0); PLATELET COUNT 355 TH/MM3 (150-450); RED BLOOD COUNT 3.12 MIL/MM3 (4.00-5.30); RED CELL DISTRIBUTION WIDTH 21.3 % (11.6-17.2); WHITE BLOOD COUNT 12.3 TH/MM3 (4.0-11.0)
[2016-10-25 06:25] LABS: BICARBONATE 25.7 MEQ/L (21.0-32.0)
[2016-10-25] MEDS: HEPARIN SODIUM - SQ 10,000 UNITS/ML VIAL SQ SCH ×2 (07:20→17:58)
[2016-10-25] MEDS: FUROSEMIDE 40 MG/4 ML VIAL IV PUSH SCH (08:49)
[2016-10-25] MEDS: guaiFENesin E.R. 600 MG TAB PO SCH ×2 (09:00→20:51)
[2016-10-25] MEDS: SODIUM CHLORIDE 0.9% FLUSH 10 ML FLUSH IV FLUSH SCH ×2 (09:02→19:36)
--- NOTE | 2016-10-25 09:05 | HHI.CCPN ---
Subjective Remarks/Hospital Course The patient is a 71-year-old female with past medical history of hypertension, diabetes mellitus, hyperlipidemia, obstructive sleep apnea on C-PAP and CVA with residual left-sided weakness. Initially she presented to [place] ED for evaluation of an irregular heartbeat per medical records. The patient apparently went to see her primary care physician, Dr. Alonzo, yesterday and was noted to have an irregular heart rate and referred her to the ER for further evaluation and management. On arrival to the ED, the patient was in renal failure with a BUN of 64, creatinine 2.20, hyperkalemic with a potassium level of 5.7. In addition, she had mild elevation in troponin at 0.13 and leukocytosis with a WBC of 13.0. The patient also has been having increased swelling and erythema of her lower extremities. She was initially admitted under [facility] service and when seen by Dr. Leahy this morning, she was not responsive to any verbal or tactile stimuli. A stat ABG was performed which showed acute hypercapnic respiratory failure with a pH of 7.06, CO2 84, pAO2 81 , bicarb 23, sats of 92%. She was subsequently intubated by the ED physician with Etomidate and succinylcholine and placed on full mechanical ventilation. A repeat ABG post-intubation showed a pH of 7.29, CO2 49, pAO2 of 115, bicarb 32 and sats 96%. Her labs from this morning showed worsening hyperkalemia with potassium level of 6.1 and creatinine 2.30. She was treated with IV insulin, Albuterol sulfate, calcium gluconate, bicarb, Kayexalate and Lasix. A stat CT scan of the brain without contrast was ordered by the primary team. The patient was subsequently transferred to [facility] for further evaluation and management. She was seen by Dr. Dill from nephrology service. A chest x-ray post-intubation showed ET tube above the kimberlyn in addition to pulmonary vascular congestion and bibasilar airspace disease. She is currently sedated with Diprivan and on assist control ventilation. 10/25 Patient is sedated with Diprivan and intubated. Afebrile. CT brain from last night showed no acute disease. Objective Vital Signs Date Time Temp Pulse Resp B/P Pulse Ox O2 Delivery O2 Flow Rate FiO2 4/20/17 08:18 40 10/25/16 08:18 98 10/25/16 06:00 82 10/25/16 04:00 99.4 19 123/58 10/24/16 06:30 Nasal Cannula 2 Intake and Output 10/24/16 10/24/16 10/25/16 08:00 16:00 00:00 Intake Total 1100 ml 111 ml 642 ml Output Total 1075 ml 830 ml Balance 1100 ml -964 ml -188 ml Result Diagram: 10/25/16 0520 10/25/16 0520 Other Results Laboratory Tests Test 10/24/16 10/24/16 10/24/16 10/24/16 10:38 12:00 13:45 18:20 Blood Gas Puncture Site RT RADIAL RT RADIAL Blood Gas Patient Temperature 98.6 98.6 Blood Gas HCO3 22 mmol/L 23 mmol/L Blood Gas Base Excess -3.3 mmol/L -1.3 mmol/L Blood Gas Oxygen Saturation 96 % 95 % Arterial Blood pH 7.29 7.38 Arterial Blood Partial 49 mmHg 40 mmHg Pressure CO2 Arterial Blood Partial 115 mmHg 111 mmHg Pressure O2 Arterial Blood Oxygen Content 12.5 Vol % 11.4 Vol % Arterial Blood 1.5 % 1.8 % Carboxyhemoglobin Arterial Blood Methemoglobin 1.1 % 1.5 % Blood Gas Hemoglobin 9.1 G/DL 8.4 G/DL Oxygen Delivery Device VENTILATOR Blood Gas Ventilator Setting AC/16/500/5PEEP Blood Gas Inspired Oxygen 50 % 40 % Nasal Screen MRSA (PCR) POSITIVE Potassium Level 5.1 MEQ/L Test 10/24/16 10/25/16 20:09 05:20 Sodium Level 143 MEQ/L 142 MEQ/L Potassium Level 4.4 MEQ/L 4.0 MEQ/L Chloride Level 108 MEQ/L 107 MEQ/L Carbon Dioxide Level 23.7 MEQ/L 25.7 MEQ/L Anion Gap 11 MEQ/L 9 MEQ/L Blood Urea Nitrogen 64 MG/DL 66 MG/DL Creatinine 2.35 MG/DL 2.66 MG/DL Estimat Glomerular Filtration 20 ML/MIN 18 ML/MIN Rate Random Glucose 97 MG/DL 192 MG/DL Calcium Level 8.6 MG/DL 8.1 MG/DL White Blood Count 12.3 TH/MM3 Red Blood Count 3.12 MIL/MM3 Hemoglobin 8.0 GM/DL Hematocrit 26.5 % Mean Corpuscular Volume 85.0 FL Mean Corpuscular Hemoglobin 25.6 PG Mean Corpuscular Hemoglobin 30.1 % Concent Red Cell Distribution Width 21.3 % Platelet Count 355 TH/MM3 Mean Platelet Volume 8.7 FL Neutrophils (%) (Auto) 74.2 % Lymphocytes (%) (Auto) 18.4 % Monocytes (%) (Auto) 5.9 % Eosinophils (%) (Auto) 0.9 % Basophils (%) (Auto) 0.6 % Neutrophils # (Auto) 9.1 TH/MM3 Lymphocytes # (Auto) 2.3 TH/MM3 Monocytes # (Auto) 0.7 TH/MM3 Eosinophils # (Auto) 0.1 TH/MM3 Basophils # (Auto) 0.1 TH/MM3 CBC Comment DIFF FINAL Differential Comment Imaging Last Impressions Head CT 10/24/16 0000 Signed Impressions: Service Date/Time: Monday, October 24, 2016 16:56 - CONCLUSION: 1. No acute findings in the brain. 2. Right paranasal sinus disease with air-fluid levels. Anthony Lockhart MD Chest X-Ray 10/24/16 0000 Signed Impressions: Service Date/Time: Monday, October 24, 2016 08:13 - CONCLUSION: Interval placement of endotracheal tube which is approximately 1 cm above the kimberlyn. Interstitial vascular congestion and bibasilar airspace disease. Small bilateral effusions. Kenny Hagen MD Lower Extremity Ultrasound 10/23/16 0000 Signed Impressions: Service Date/Time: Sunday, October 23, 2016 13:47 - CONCLUSION: The study is negative for deep venous thrombosis bilateral lower extremity. Anthony Lockhart MD Objective Remarks GENERAL: Patient is 71yo intubated and sedated SKIN: Warm and dry. HEAD: Normocephalic. EYES: No scleral icterus. No injection or drainage. NECK: Supple, trachea midline. No JVD or lymphadenopathy. CARDIOVASCULAR: Regular rate and rhythm without murmurs, gallops, or rubs. RESPIRATORY: Breath sounds equal bilaterally. No accessory muscle use. GASTROINTESTINAL: Abdomen soft, non-tender, nondistended. MUSCULOSKELETAL: No cyanosis, + edema with venous stasis. Neuro: Sedated. A/P Assessment and Plan 1. VDRF 2. Acute renal failure. 3. s/p Hyperkalemia 4. Encephalopathy multifactorial likely secondary to CO2 narcosis and uremia. 5. Mild elevation in troponin. 6. Leukocytosis 7. Hypertension 8. Hyperglycemia with underlying history of diabetes mellitus. 9. Cellulitis of the lower extremities. 10. UTI 11. Obstructive sleep apnea Plan Neuro: On Diprivan infusion for sedation, daily sedation vacation. CT brain 10/24: No acute intracranial findings Pulm: Continue with vent support and maintain sats above 92%. Bronchodilators, ICU vent bundle. Start SBT daily as forrest. CV: Monitor HR and BP and maintain MAP>65 mmHg. Lactic acid level measured 1.0. Echo showed EF: 55%, no RWMA : Monitor renal function I's and O's and avoid nephrotoxins. Renal-Dr. Dill, Decrease Lasix 40 mg IV daily Cr: 2.66 from 2.35, UO: 2380 ml since yesterday, K level 4.0 Check renal US ID: Continue with abx (Zosyn) monitor for signs of infections(fever and WBC) Follow up on cultures GI: on Protonix 40 mg IV daily for GI prophylaxis. On Nepro @30ml/hr Endo: SSI with Accu-Chek q. 6-hour for glycemic control. TSH level: 5.2. Heme: Monitor CBC. GI prophylaxis with Protonix 40 mg IV daily and DVT prophylaxis with heparin subcu. Doppler US LE negative for DVT. Level 3 Perla Bonds MD Oct 25, 2016 09:05
[2016-10-25 10:14] LABS: BLOOD GAS BASE EXCESS -2.1 mmol/L (-2-2); BLOOD GAS CARBOXYHEMOGLOBIN 1.5 % (0-4); BLOOD GAS HCO3 23 mmol/L (22-26); BLOOD GAS METHEMOGLOBIN 1.3 % (0-2); BLOOD GAS O2 HGB SATURATION 94 % (90-100); BLOOD GAS OXYGEN CONTENT 12.1 Vol % (12.0-20.0); BLOOD GAS PCO2 49 mmHg (38-42); BLOOD GAS PO2 96 mmHg (61-120); BLOOD GAS TOTAL HGB 9.1 G/DL (12.0-16.0); CRITICAL VALUE NO; OXYGEN DEVICE VENT; TEMP CORR TO 98.6
[2016-10-25 10:15] LABS: DRAW SITE RT RADIAL; FIO2 40 %; NUMBER OF ARTERIAL PUNCTURES 1; STAT NO; ULNAR PULSE PRESENT
--- NOTE | 2016-10-25 12:24 | RADRPT ---
EXAM DATE/TIME: 10/25/2016 10:11 [facility] COMPARISON: No previous studies available for comparison. INDICATIONS : Acute renal failure. MEDICAL HISTORY : Stroke. Hypercholesterolemia. Hypertension. Sleep apnea. Arthritis. Diabetes. Claustrophobia. SURGICAL HISTORY : Appendectomy. Cholecystectomy. Right hip replacement. Intestinal hernia. ENCOUNTER: Initial ACUITY: 1 day PAIN SCORE: Nonresponsive. LOCATION: Bilateral flank MEASUREMENTS: RIGHT KIDNEY: 10.9 X 5.1 X 4.8 cm LEFT KIDNEY: 10.7 x 4.9 x 5.5 cm FINDINGS: RIGHT KIDNEY: Renal cortex is normal in thickness and echotexture. No hydronephrosis, stone, or solid mass. There is a lower pole right renal cyst measuring 4.2 x 3.3 x 4.6 cm. LEFT KIDNEY: Renal cortex is normal in thickness and echotexture. No hydronephrosis, stone, or solid mass. BLADDER: The bladder is not well visualized due to nondistention. Cuellar catheter is in place. CONCLUSION: 1. Lower pole right renal cyst measuring 4.2 x 3.3 x 4.6 cm. 2. No hydronephrosis, solid mass or calcified calculus. 3. Poor visualization of the bladder due to nondistention. Jaime Norris MD on October 25, 2016 at 12:20 Board Certified Radiologist. This report was verified electronically.
[2016-10-25] MEDS: PANTOPRAZOLE SODIUM 40 MG VIAL IV PUSH SCH (12:56)
[2016-10-25] MEDS: NICOTINE 7 MG/24 HR PATCH T-DERMAL SCH (16:51)
--- NOTE | 2016-10-25 17:46 | HHI.NPPN ---
Subjective General Problems: Anemia, Edema Renal Failure: Chronic, Acute, Stage III History of Present Illness 71-year-old female with a past medical history of hypertension, diabetes mellitus, hyperlipidemia, chronic obstructive pulmonary disease, cerebrovascular accident, transferred here from [facility], came to the hospital because of left-sided weakness. I was called to see the patient because of elevated BUN and creatinine. The patient has a creatinine of 2.0 on presentation. She previously has a creatinine of 1.5-1.6 but this was two years ago. Additional Remarks Patient has been intubated and sedated. Review of Systems General General Remarks Intubated and sedated. Objective Data Data 10/24/16 10/25/16 19:00 07:00 Intake Total 1211 ml 1205 ml Output Total 1075 ml 1305 ml Balance 136 ml -100 ml Intake Oral 111 ml IV Total 1100 ml 518 ml Tube Feeding 567 ml Tube Irrigant 120 ml Output Urine Total 1075 ml 1305 ml # Voids 3 # Bowel Movements 1 0 Vital Signs Date Time Temp Pulse Resp B/P Pulse Ox O2 Delivery O2 Flow Rate FiO2 10/25/16 16:16 99 40 10/25/16 16:00 87 10/25/16 16:00 99.3 87 19 105/50 98 10/25/16 16:00 40 10/25/16 14:00 102 10/25/16 12:00 40 10/25/16 12:00 98.8 87 18 102/51 96 10/25/16 12:00 87 10/25/16 11:57 96 40 10/25/16 10:43 40 10/25/16 10:00 120 10/25/16 08:18 40 10/25/16 08:18 98 40 10/25/16 08:00 40 10/25/16 08:00 98.8 98 19 128/89 98 10/25/16 08:00 88 10/25/16 06:00 82 10/25/16 04:15 98 40 10/25/16 04:00 93 10/25/16 04:00 99.4 93 19 123/58 98 10/25/16 04:00 40 10/25/16 02:16 99 40 10/25/16 02:00 84 10/25/16 00:00 93 10/25/16 00:00 40 10/25/16 00:00 99.4 93 19 123/58 98 10/24/16 22:00 101 10/24/16 21:51 99 40 10/24/16 20:00 94 10/24/16 20:00 99.4 94 18 116/56 99 10/24/16 20:00 40 -: 10/25/16 0520 10/25/16 0520 Microbiology 10/24/16 Gram Stain - Final, Resulted 10/24/16 Sputum Culture - Preliminary, Resulted Physical Exam General Appearance Remarks Intubated and sedated. Eyes Eye Exam: Pupils Equal Throat Throat Exam: Oral Mucosa [place] & Moist Neck Neck Exam: Neck Supple Pulmonary Resp Exam: No Distress, Rhonchi, Decreased Bases, Diminished Breath Sounds Cardiology CV Exam: Regular, Normal Sinus Rhythm Gastrointestinal/Abdomen GI Exam: Soft, Non-Tender, Bowel Sounds Present, Distended Extremeties Extremities Exam: Moderate Edema, Pitting Edema, Dependent Edema (Both legs has erythema and covered with dressing.) Neurologic Neuro Exam: Sedated Assessment/Plan Assessment Summary: HIRAM/Acute Renal Failure, Fluid/Volume Overload, CKD Stage III Problem List: (1) Renal insufficiency (2) Leukocytosis (3) Encephalopathy (4) Diabetes mellitus (5) Acute worsening of stage 3 chronic kidney disease Plan Patient has good urine out put. Lasix decreased to once a day. BP is stable, Continue Zosyn, cultures negative so far. Follow the urine out put and BMP. Creatinine increased slightly. Problem Qualifiers (1) Diabetes mellitus: Bree Dill MD Oct 25, 2016 17:46
[2016-10-26] VITALS (18 sets, daily range): BP systolic 98–118; BP diastolic 53–78; PULSE 74–119; RESP 16–20; TEMP 97.6–98.6; O2SAT 96–100
[2016-10-26] MEDS: MORPHINE SULFATE 4 MG/ML INJ IV PRN (02:30)
[2016-10-26] MEDS: CHLORHEXIDINE GLUCONATE 2 % 1 PACK (2 CLOTHS)(taper/protocol) TOPICAL SCH (02:45)
[2016-10-26] MEDS: RESP: ALBUTEROL 2.5 MG/IPRATROPIUM 0.5 MG NEB (SCH) NEB ×4 (03:21→21:43)
[2016-10-26] MEDS: INSULIN ASPART SUPPLEMENTAL SCALE SQ SCH (05:21)
[2016-10-26] MEDS: HEPARIN SODIUM - SQ 10,000 UNITS/ML VIAL SQ SCH ×2 (05:21→17:57)
[2016-10-26] MEDS: PIPERACIL-TAZO 2.25 GM PREMIX 50 ML IV SCH ×3 (05:22→17:53)
[2016-10-26] MEDS: PROPOFOL 1000 MG/100 ML INJ 100 ML IV SCH ×4 (05:22→22:17)
[2016-10-26 06:46] LABS: AUTOMATED NEUTROPHIL # 9.6 TH/MM3 (1.8-7.7); BASOPHIL # 0.1 TH/MM3 (0-0.2); BASOPHIL % 0.6 % (0.0-2.0); EOSINOPHIL # 0.3 TH/MM3 (0-0.4); HEMATOCRIT 26.1 % (35.0-46.0); HEMO FLAGS DIFF FINAL; LYMPH % 16.7 % (9.0-44.0); LYMPHOCYTE # 2.1 TH/MM3 (1.0-4.8); MEAN CELL VOLUME 83.9 FL (80.0-100.0); MEAN CORPUSCULAR HEMOGLOBIN 26.2 PG (27.0-34.0); MEAN CORPUSCULAR HGB CONC 31.2 % (32.0-36.0); MONO % 5.3 % (0.0-8.0); NEUT % 75.4 % (16.0-70.0); PLATELET COUNT 360 TH/MM3 (150-450); RED BLOOD COUNT 3.11 MIL/MM3 (4.00-5.30); RED CELL DISTRIBUTION WIDTH 20.7 % (11.6-17.2); WHITE BLOOD COUNT 12.8 TH/MM3 (4.0-11.0)
[2016-10-26 07:05] LABS: BICARBONATE 26.6 MEQ/L (21.0-32.0); POTASSIUM 3.5 MEQ/L (3.5-5.1)
--- NOTE | 2016-10-26 08:58 | HHI.CCPN ---
Subjective Remarks/Hospital Course The patient is a 71-year-old female with past medical history of hypertension, diabetes mellitus, hyperlipidemia, obstructive sleep apnea on C-PAP and CVA with residual left-sided weakness. Initially she presented to [place] ED for evaluation of an irregular heartbeat per medical records. The patient apparently went to see her primary care physician, Dr. Alonzo, yesterday and was noted to have an irregular heart rate and referred her to the ER for further evaluation and management. On arrival to the ED, the patient was in renal failure with a BUN of 64, creatinine 2.20, hyperkalemic with a potassium level of 5.7. In addition, she had mild elevation in troponin at 0.13 and leukocytosis with a WBC of 13.0. The patient also has been having increased swelling and erythema of her lower extremities. She was initially admitted under [facility]PAS service and when seen by Dr. Leahy this morning, she was not responsive to any verbal or tactile stimuli. A stat ABG was performed which showed acute hypercapnic respiratory failure with a pH of 7.06, CO2 84, pAO2 81 , bicarb 23, sats of 92%. She was subsequently intubated by the ED physician with Etomidate and succinylcholine and placed on full mechanical ventilation. A repeat ABG post-intubation showed a pH of 7.29, CO2 49, pAO2 of 115, bicarb 32 and sats 96%. Her labs from this morning showed worsening hyperkalemia with potassium level of 6.1 and creatinine 2.30. She was treated with IV insulin, Albuterol sulfate, calcium gluconate, bicarb, Kayexalate and Lasix. A stat CT scan of the brain without contrast was ordered by the primary team. The patient was subsequently transferred to [facility] for further evaluation and management. She was seen by Dr. Dill from nephrology service. A chest x-ray post-intubation showed ET tube above the kimberlyn in addition to pulmonary vascular congestion and bibasilar airspace disease. She is currently sedated with Diprivan and on assist control ventilation. 10/25 Patient is sedated with Diprivan and intubated. Afebrile. CT brain from last night showed no acute disease. 10/26 Patient remains sedated and intubated. Afebrile. Tolerating tube feeds. Objective Vital Signs Date Time Temp Pulse Resp B/P Pulse Ox O2 Delivery O2 Flow Rate FiO2 10/26/16 07:59 40 10/26/16 07:59 98 10/26/16 06:00 79 10/26/16 04:00 98.2 18 98/53 10/24/16 06:30 Nasal Cannula 2 Intake and Output 10/25/16 10/25/16 10/26/16 08:00 16:00 00:00 Intake Total 563 ml 395 ml 801 ml Output Total 475 ml 725 ml 500.0 ml Balance 88 ml -330 ml 301.0 ml Result Diagram: 10/26/16 0612 10/26/1612 Other Results Laboratory Tests Test 10/25/16 10/26/16 10:05 06:12 Blood Gas Puncture Site RT RADIAL Blood Gas Patient Temperature 98.6 Blood Gas HCO3 23 mmol/L Blood Gas Base Excess -2.1 mmol/L Blood Gas Oxygen Saturation 94 % Arterial Blood pH 7.30 Arterial Blood Partial 49 mmHg Pressure CO2 Arterial Blood Partial 96 mmHg Pressure O2 Arterial Blood Oxygen Content 12.1 Vol % Arterial Blood 1.5 % Carboxyhemoglobin Arterial Blood Methemoglobin 1.3 % Blood Gas Hemoglobin 9.1 G/DL Oxygen Delivery Device VENT Blood Gas Ventilator Setting CPAP 10/5 Blood Gas Inspired Oxygen 40 % White Blood Count 12.8 TH/MM3 Red Blood Count 3.11 MIL/MM3 Hemoglobin 8.1 GM/DL Hematocrit 26.1 % Mean Corpuscular Volume 83.9 FL Mean Corpuscular Hemoglobin 26.2 PG Mean Corpuscular Hemoglobin 31.2 % Concent Red Cell Distribution Width 20.7 % Platelet Count 360 TH/MM3 Mean Platelet Volume 8.6 FL Neutrophils (%) (Auto) 75.4 % Lymphocytes (%) (Auto) 16.7 % Monocytes (%) (Auto) 5.3 % Eosinophils (%) (Auto) 2.0 % Basophils (%) (Auto) 0.6 % Neutrophils # (Auto) 9.6 TH/MM3 Lymphocytes # (Auto) 2.1 TH/MM3 Monocytes # (Auto) 0.7 TH/MM3 Eosinophils # (Auto) 0.3 TH/MM3 Basophils # (Auto) 0.1 TH/MM3 CBC Comment DIFF FINAL Differential Comment Sodium Level 141 MEQ/L Potassium Level 3.5 MEQ/L Chloride Level 105 MEQ/L Carbon Dioxide Level 26.6 MEQ/L Anion Gap 9 MEQ/L Blood Urea Nitrogen 75 MG/DL Creatinine 2.67 MG/DL Estimat Glomerular Filtration 17 ML/MIN Rate Random Glucose 251 MG/DL Calcium Level 8.1 MG/DL Imaging Last Impressions Renal Ultrasound 10/25/16 0000 Signed Impressions: Service Date/Time: October 10:11 - CONCLUSION: 1. Lower pole right renal cyst measuring 4.2 x 3.3 x 4.6 cm. 2. No hydronephrosis, solid mass or calcified calculus. 3. Poor visualization of the bladder due to nondistention. Jaime Norris MD Head CT 10/24/16 0000 Signed Impressions: Service Date/Time: Monday, October 24, 2016 16:56 - CONCLUSION: 1. No acute findings in the brain. 2. Right paranasal sinus disease with air-fluid levels. Anthony Lockhart MD Chest X-Ray 10/24/16 0000 Signed Impressions: Service Date/Time: Monday, October 24, 2016 08:13 - CONCLUSION: Interval placement of endotracheal tube which is approximately 1 cm above the kimberlyn. Interstitial vascular congestion and bibasilar airspace disease. Small bilateral effusions. Kenny Hagen MD Lower Extremity Ultrasound 10/23/16 0000 Signed Impressions: Service Date/Time: Sunday, October 23, 2016 13:47 - CONCLUSION: The study is negative for deep venous thrombosis bilateral lower extremity. Anthony Lockhart MD Objective Remarks GENERAL: Patient is 71yo intubated and sedated SKIN: Warm and dry. HEAD: Normocephalic. EYES: No scleral icterus. No injection or drainage. NECK: Supple, trachea midline. No JVD or lymphadenopathy. CARDIOVASCULAR: Regular rate and rhythm without murmurs, gallops, or rubs. RESPIRATORY: Breath sounds equal bilaterally. No accessory muscle use. GASTROINTESTINAL: Abdomen soft, non-tender, nondistended. MUSCULOSKELETAL: No cyanosis, + edema with venous stasis. Neuro: Sedated. A/P Assessment and Plan 1. VDRF 2. Acute renal failure. 3. s/p Hyperkalemia 4. Encephalopathy multifactorial likely secondary to CO2 narcosis and uremia. 5. Mild elevation in troponin. 6. Leukocytosis 7. Hypertension 8. Hyperglycemia with underlying history of diabetes mellitus. 9. Cellulitis of the lower extremities. 10. UTI 11. Obstructive sleep apnea 12 MRSA pneumonia Plan Neuro: On Diprivan infusion for sedation, daily sedation vacation. CT brain 10/24: No acute intracranial findings Pulm: Continue with vent support and maintain sats above 92%. Bronchodilators, ICU vent bundle. SBT daily as forrest. CV: Monitor HR and BP and maintain MAP>65 mmHg. Lactic acid level measured 1.0. Echo showed EF: 55%, no RWMA : Monitor renal function I's and O's and avoid nephrotoxins. Renal-Dr. Dill, Lasix 40 mg IV daily Cr: 2.67, UO: 1425 ml in 24 hrs Renal US: Right renal cyst, no hydronephrosis ID: Continue with abx (Zosyn, add Zyvox 600mg Q12) monitor for signs of infections(fever and WBC) 10/24 Sputum: MRSA GI: on Protonix 40 mg IV daily for GI prophylaxis. On Nepro @30ml/hr Endo: Increase SSI to medium scalefor glycemic control. TSH level: 5.2. Heme: Monitor CBC. GI prophylaxis with Protonix 40 mg IV daily and DVT prophylaxis with heparin subcu. Doppler US LE negative for DVT. Level 3 Perla Bonds MD Oct 26, 2016 08:58
[2016-10-26] MEDS ORDERED: INSULIN NovoLIN REGULAR SUPPLEMENTAL SCALE SQ SCH (09:00)
[2016-10-26] MEDS ORDERED: GLUCAGON 1 MG/ML VIAL OTHER PRN (09:00)
[2016-10-26] MEDS: LINEZOLID 600 MG TAB PO SCH ×2 (09:00→21:36)
[2016-10-26] MEDS ORDERED: DEXTROSE 50% IN WATER 50 ML VIAL(D50) IV PUSH PRN (09:00)
[2016-10-26] MEDS: REMOVE OLD PATCH T-DERMAL SCH (09:00)
[2016-10-26] MEDS: SODIUM CHLORIDE 0.9% FLUSH 10 ML FLUSH IV FLUSH SCH ×2 (09:00→21:36)
[2016-10-26] MEDS: FUROSEMIDE 40 MG/4 ML VIAL IV PUSH SCH (09:18)
[2016-10-26] MEDS: guaiFENesin E.R. 600 MG TAB PO SCH ×2 (09:18→21:36)
[2016-10-26] MEDS: NICOTINE 7 MG/24 HR PATCH T-DERMAL SCH (09:19)
[2016-10-26 10:12] LABS: BLOOD GAS BASE EXCESS -0.6 mmol/L (-2-2); BLOOD GAS CARBOXYHEMOGLOBIN 1.4 % (0-4); BLOOD GAS HCO3 25 mmol/L (22-26); BLOOD GAS METHEMOGLOBIN 1.4 % (0-2); BLOOD GAS O2 HGB SATURATION 95 % (90-100); BLOOD GAS OXYGEN CONTENT 11.6 Vol % (12.0-20.0); BLOOD GAS PCO2 52 mmHg (38-42); BLOOD GAS PO2 112 mmHg (61-120); BLOOD GAS TOTAL HGB 8.5 G/DL (12.0-16.0); TEMP CORR TO 98.6
[2016-10-26 10:13] LABS: CRITICAL VALUE YES; OXYGEN DEVICE VENT
[2016-10-26 10:14] LABS: DRAW SITE RT RADIAL; FIO2 40 %; NUMBER OF ARTERIAL PUNCTURES 1; STAT YES; ULNAR PULSE PRESENT; VENT SETTINGS PSV 10/ PEEP 5/ CPAP
--- NOTE | 2016-10-26 10:23 | RADRPT ---
EXAM DATE/TIME: 10/26/2016 10:08 [facility] COMPARISON: CHEST SINGLE AP, October 24, 2016, 8:13. INDICATIONS : Respiratory distress. MEDICAL HISTORY : Hypertension. Cardiovascular disease Cerebrovascular disease.Diabetes SURGICAL HISTORY : Cholecystectomy. Appendectomy. ENCOUNTER: Subsequent ACUITY: 4 - 6 days PAIN SCORE: Non-responsive. LOCATION: Bilateral chest FINDINGS: Bilateral pleural effusions are present worse on the left and not changed. Cardiomegaly has not fontenot ed. NG tube is present with tip in the stomach. ET tube is present with tip overlapping approximately 1-2 cm above the kimberlyn. There is haziness to the lungs mainly on the left side not significantly ch anged may represent pulmonary edema, however pneumonia in the left lung base is difficult to exclude. CONCLUSION: Placement of NG tube and otherwise no appreciable change in pulmonary edema and pneumonia in the left lung base is difficult to exclude. Gregory Wells MD on October 26, 2016 at 10:18 Board Certified Radiologist. This report was verified electronically.
[2016-10-26] MEDS: PANTOPRAZOLE SODIUM 40 MG VIAL IV PUSH SCH (13:00)
[2016-10-26] MEDS: INSULIN NovoLIN REGULAR SUPPLEMENTAL SCALE SQ SCH ×2 (17:00→22:16)
--- NOTE | 2016-10-26 17:53 | HHI.NPPN ---
Subjective General Problems: Anemia, Edema Renal Failure: Chronic, Acute, Stage III History of Present Illness 71-year-old female with a past medical history of hypertension, diabetes mellitus, hyperlipidemia, chronic obstructive pulmonary disease, cerebrovascular accident, transferred here from [facility], came to the hospital because of left-sided weakness. I was called to see the patient because of elevated BUN and creatinine. The patient has a creatinine of 2.0 on presentation. She previously has a creatinine of 1.5-1.6 but this was two years ago. Additional Remarks Patient is intubated and sedated, clinically same. Review of Systems General General Remarks Intubated and sedated. Objective Data Data 10/25/16 10/26/16 19:00 07:00 Intake Total 395 ml 1452 ml Output Total 725 ml 700.0 ml Balance -330 ml 752.0 ml IV Total 169 ml 483 ml Tube Feeding 166 ml 849 ml Other 60 ml 120 ml Output Urine Total 725 ml 700 ml Tube Feeding Residual Discard 0 ml # Bowel Movements 1 0 Vital Signs Date Time Temp Pulse Resp B/P Pulse Ox O2 Delivery O2 Flow Rate FiO2 10/26/16 16:45 100 40 10/26/16 14:00 119 10/26/16 13:27 99 40 10/26/16 12:00 40 10/26/16 12:00 97.6 97 20 118/73 96 10/26/16 12:00 119 10/26/16 10:00 119 10/26/16 08:00 98.6 84 20 103/72 100 10/26/16 08:00 119 10/26/16 08:00 40 10/26/16 07:59 40 10/26/16 07:59 98 40 10/26/16 06:00 79 10/26/16 04:08 99 40 10/26/16 04:00 78 10/26/16 04:00 40 10/26/16 04:00 98.2 78 18 98/53 100 10/26/16 02:35 16 10/26/16 02:00 74 10/26/16 00:08 99 40 10/26/16 00:00 98.0 77 18 104/54 99 10/26/16 00:00 40 10/26/16 00:00 77 10/25/16 22:00 90 10/25/16 20:00 40 10/25/16 20:00 80 10/25/16 20:00 98.5 80 19 100/48 99 10/25/16 19:40 100 40 10/25/16 18:00 87 -: 10/26/16 0612 10/26/16 0612 Physical Exam General Appearance Remarks Intubated and sedated. Eyes Eye Exam: Pupils Equal Throat Throat Exam: Oral Mucosa [place] & Moist Neck Neck Exam: Neck Supple Pulmonary Resp Exam: No Distress, Rhonchi, Decreased Bases, Diminished Breath Sounds Cardiology CV Exam: Regular, Normal Sinus Rhythm Gastrointestinal/Abdomen GI Exam: Soft, Non-Tender, Bowel Sounds Present, Distended Extremeties Extremities Exam: Moderate Edema, Pitting Edema, Dependent Edema (Both legs has erythema and covered with dressing.) Neurologic Neuro Exam: Sedated Assessment/Plan Assessment Summary: HIRAM/Acute Renal Failure, Fluid/Volume Overload, CKD Stage III Problem List: (1) Renal insufficiency (2) Leukocytosis (3) Encephalopathy (4) Diabetes mellitus (5) Acute worsening of stage 3 chronic kidney disease Plan Patient has good urine out put. Lasix decreased to once a day. BP is stable, Continue Zosyn, Follow the urine out put and BMP. Creatinine is now stable. D/W daughter at bed side. Continue Lasix and antibiotics. Problem Qualifiers (1) Diabetes mellitus: Bree Dill MD Oct 26, 2016 17:53
[2016-10-27] VITALS (19 sets, daily range): BP systolic 109–141; BP diastolic 53–70; PULSE 66–97; RESP 18–20; TEMP 97.5–98.6; O2SAT 95–100
[2016-10-27] MEDS: PIPERACIL-TAZO 2.25 GM PREMIX 50 ML IV SCH ×5 (00:28→23:41)
[2016-10-27] MEDS: PROPOFOL 1000 MG/100 ML INJ 100 ML IV SCH ×2 (02:18→06:31)
[2016-10-27] MEDS: RESP: ALBUTEROL 2.5 MG/IPRATROPIUM 0.5 MG NEB (SCH) NEB ×5 (03:28→23:36)
[2016-10-27] MEDS: CHLORHEXIDINE GLUCONATE 2 % 1 PACK (2 CLOTHS)(taper/protocol) TOPICAL SCH (04:00)
[2016-10-27] MEDS: INSULIN NovoLIN REGULAR SUPPLEMENTAL SCALE SQ SCH ×4 (04:53→23:00)
[2016-10-27 05:54] LABS: AUTOMATED NEUTROPHIL # 8.1 TH/MM3 (1.8-7.7); BASOPHIL # 0.1 TH/MM3 (0-0.2); BASOPHIL % 0.6 % (0.0-2.0); EOSINOPHIL # 0.3 TH/MM3 (0-0.4); EOSINOPHIL % 2.8 % (0.0-4.0); HEMATOCRIT 26.5 % (35.0-46.0); HEMO FLAGS DIFF FINAL; LYMPHOCYTE # 2.3 TH/MM3 (1.0-4.8); MEAN CELL VOLUME 85.5 FL (80.0-100.0); MEAN CORPUSCULAR HEMOGLOBIN 26.1 PG (27.0-34.0); MEAN CORPUSCULAR HGB CONC 30.6 % (32.0-36.0); MONO % 5.7 % (0.0-8.0); NEUT % 70.9 % (16.0-70.0); PLATELET COUNT 311 TH/MM3 (150-450); RED BLOOD COUNT 3.09 MIL/MM3 (4.00-5.30); RED CELL DISTRIBUTION WIDTH 21.4 % (11.6-17.2); WHITE BLOOD COUNT 11.5 TH/MM3 (4.0-11.0)
[2016-10-27 06:30] LABS: BICARBONATE 26.7 MEQ/L (21.0-32.0); POTASSIUM 3.7 MEQ/L (3.5-5.1)
[2016-10-27] MEDS: HEPARIN SODIUM - SQ 10,000 UNITS/ML VIAL SQ SCH ×2 (06:31→16:57)
--- NOTE | 2016-10-27 08:05 | HHI.CCPN ---
Subjective Remarks/Hospital Course The patient is a 71-year-old female with past medical history of hypertension, diabetes mellitus, hyperlipidemia, obstructive sleep apnea on C-PAP and CVA with residual left-sided weakness. Initially she presented to [facility] ED for evaluation of an irregular heartbeat per medical records. The patient apparently went to see her primary care physician, Dr. Alonzo, yesterday and was noted to have an irregular heart rate and referred her to the ER for further evaluation and management. On arrival to the ED, the patient was in renal failure with a BUN of 64, creatinine 2.20, hyperkalemic with a potassium level of 5.7. In addition, she had mild elevation in troponin at 0.13 and leukocytosis with a WBC of 13.0. The patient also has been having increased swelling and erythema of her lower extremities. She was initially admitted under [facility] service and when seen by Dr. Leahy this morning, she was not responsive to any verbal or tactile stimuli. A stat ABG was performed which showed acute hypercapnic respiratory failure with a pH of 7.06, CO2 84, pAO2 81 , bicarb 23, sats of 92%. She was subsequently intubated by the ED physician with Etomidate and succinylcholine and placed on full mechanical ventilation. A repeat ABG post-intubation showed a pH of 7.29, CO2 49, pAO2 of 115, bicarb 32 and sats 96%. Her labs from this morning showed worsening hyperkalemia with potassium level of 6.1 and creatinine 2.30. She was treated with IV insulin, Albuterol sulfate, calcium gluconate, bicarb, Kayexalate and Lasix. A stat CT scan of the brain without contrast was ordered by the primary team. The patient was subsequently transferred to [facility] for further evaluation and management. She was seen by Dr. Dill from nephrology service. A chest x-ray post-intubation showed ET tube above the kimberlyn in addition to pulmonary vascular congestion and bibasilar airspace disease. She is currently sedated with Diprivan and on assist control ventilation. 10/25 Patient is sedated with Diprivan and intubated. Afebrile. CT brain from last night showed no acute disease. 10/26 Patient remains sedated and intubated. Afebrile. Tolerating tube feeds. 10/27 Patient is sedated with Diprivan and intubated. Afebrile. Tolerated CPAP x 3 hrs yesterday however ABG on CPAP showed PH:7.0 with CO2: 52. Objective Vital Signs Date Time Temp Pulse Resp B/P Pulse Ox O2 Delivery O2 Flow Rate FiO2 10/27/16 06:00 73 10/27/16 04:18 99 40 10/27/16 04:00 98.3 18 109/70 10/24/16 06:30 Nasal Cannula 2 Intake and Output 10/26/16 10/26/16 10/27/16 08:00 16:00 00:00 Intake Total 651 ml 806 ml 650 ml Output Total 200 ml 600 ml 325 ml Balance 451 ml 206 ml 325 ml Result Diagram: 10/27/16 0526 10/27/16 0526 Other Results Laboratory Tests Test 10/26/16 10/27/16 09:39 05:26 Blood Gas Puncture Site RT RADIAL Blood Gas Patient Temperature 98.6 Blood Gas HCO3 25 mmol/L Blood Gas Base Excess -0.6 mmol/L Blood Gas Oxygen Saturation 95 % Arterial Blood pH 7.30 Arterial Blood Partial 52 mmHg Pressure CO2 Arterial Blood Partial 112 mmHg Pressure O2 Arterial Blood Oxygen Content 11.6 Vol % Arterial Blood 1.4 % Carboxyhemoglobin Arterial Blood Methemoglobin 1.4 % Blood Gas Hemoglobin 8.5 G/DL Oxygen Delivery Device VENT Blood Gas Ventilator Setting PSV 10/ PEEP 5/ CPAP Blood Gas Inspired Oxygen 40 % White Blood Count 11.5 TH/MM3 Red Blood Count 3.09 MIL/MM3 Hemoglobin 8.1 GM/DL Hematocrit 26.5 % Mean Corpuscular Volume 85.5 FL Mean Corpuscular Hemoglobin 26.1 PG Mean Corpuscular Hemoglobin 30.6 % Concent Red Cell Distribution Width 21.4 % Platelet Count 311 TH/MM3 Mean Platelet Volume 8.8 FL Neutrophils (%) (Auto) 70.9 % Lymphocytes (%) (Auto) 20.0 % Monocytes (%) (Auto) 5.7 % Eosinophils (%) (Auto) 2.8 % Basophils (%) (Auto) 0.6 % Neutrophils # (Auto) 8.1 TH/MM3 Lymphocytes # (Auto) 2.3 TH/MM3 Monocytes # (Auto) 0.7 TH/MM3 Eosinophils # (Auto) 0.3 TH/MM3 Basophils # (Auto) 0.1 TH/MM3 CBC Comment DIFF FINAL Differential Comment Sodium Level 142 MEQ/L Potassium Level 3.7 MEQ/L Chloride Level 104 MEQ/L Carbon Dioxide Level 26.7 MEQ/L Anion Gap 11 MEQ/L Blood Urea Nitrogen 78 MG/DL Creatinine 2.76 MG/DL Estimat Glomerular Filtration 17 ML/MIN Rate Random Glucose 214 MG/DL Calcium Level 7.8 MG/DL Imaging Last Impressions Chest X-Ray 10/26/16 0000 Signed Impressions: Service Date/Time: Wednesday, October 26, 2016 10:08 - CONCLUSION: Placement of NG tube and otherwise no appreciable change in pulmonary edema and pneumonia in the left lung base is difficult to exclude. Gregory Wells MD Renal Ultrasound 10/25/16 0000 Signed Impressions: Service Date/Time: October 10:11 - CONCLUSION: 1. Lower pole right renal cyst measuring 4.2 x 3.3 x 4.6 cm. 2. No hydronephrosis, solid mass or calcified calculus. 3. Poor visualization of the bladder due to nondistention. Jaime Norris MD Head CT 10/24/16 0000 Signed Impressions: Service Date/Time: Monday, October 24, 2016 16:56 - CONCLUSION: 1. No acute findings in the brain. 2. Right paranasal sinus disease with air-fluid levels. Anthony Lockhart MD Lower Extremity Ultrasound 10/23/16 0000 Signed Impressions: Service Date/Time: Sunday, October 23, 2016 13:47 - CONCLUSION: The study is negative for deep venous thrombosis bilateral lower extremity. Anthony Lockhart MD Objective Remarks GENERAL: Patient is 71yo intubated and sedated SKIN: Warm and dry. HEAD: Normocephalic. EYES: No scleral icterus. No injection or drainage. NECK: Supple, trachea midline. No JVD or lymphadenopathy. CARDIOVASCULAR: Regular rate and rhythm without murmurs, gallops, or rubs. RESPIRATORY: Breath sounds equal bilaterally. No accessory muscle use. GASTROINTESTINAL: Abdomen soft, non-tender, nondistended. MUSCULOSKELETAL: No cyanosis, + edema with venous stasis. Neuro: Sedated. A/P Assessment and Plan 1. VDRF 2. Acute renal failure. 3. s/p Hyperkalemia 4. Encephalopathy multifactorial likely secondary to CO2 narcosis and uremia. 5. Mild elevation in troponin. 6. Leukocytosis 7. Hypertension 8. Hyperglycemia with underlying history of diabetes mellitus. 9. Cellulitis of the lower extremities. 10. UTI 11. Obstructive sleep apnea 12 MRSA pneumonia Plan Neuro: On Diprivan infusion for sedation, daily sedation vacation. CT brain 10/24: No acute intracranial findings Pulm: Continue with vent support and maintain sats above 92%. Bronchodilators, ICU vent bundle. SBT daily as forrest. CV: Monitor HR and BP and maintain MAP>65 mmHg. Lactic acid level measured 1.0. Echo showed EF: 55%, no RWMA : Monitor renal function I's and O's and avoid nephrotoxins. Renal-Dr. Dill, Lasix 40 mg IV daily Cr: 2.76 today from 2.67, UO: 1150 ml in 24 hrs Renal US: Right renal cyst, no hydronephrosis ID: Continue with abx (Zosyn, Zyvox) monitor for signs of infections(fever and WBC) 10/24 Sputum: MRSA GI: on Protonix 40 mg IV daily for GI prophylaxis. On Nepro @30ml/hr Endo: On SI ( medium scale) for glycemic control. TSH level: 5.2. Heme: Monitor CBC. GI prophylaxis with Protonix 40 mg IV daily and DVT prophylaxis with heparin subcu. Doppler US LE negative for DVT. Level 3 Perla Bonds MD Oct 27, 2016 08:05
[2016-10-27] MEDS: REMOVE OLD PATCH T-DERMAL SCH (08:23)
[2016-10-27] MEDS: NICOTINE 7 MG/24 HR PATCH T-DERMAL SCH (08:23)
[2016-10-27] MEDS: guaiFENesin E.R. 600 MG TAB PO SCH ×2 (08:24→20:37)
[2016-10-27] MEDS: SODIUM CHLORIDE 0.9% FLUSH 10 ML FLUSH IV FLUSH SCH ×2 (08:24→20:37)
[2016-10-27] MEDS: FUROSEMIDE 40 MG/4 ML VIAL IV PUSH SCH (08:24)
[2016-10-27] MEDS: LINEZOLID 600 MG TAB PO SCH ×2 (08:24→20:37)
--- NOTE | 2016-10-27 12:20 | HHI.NPPN ---
Subjective General Problems: Anemia, Edema Renal Failure: Chronic, Acute, Stage III History of Present Illness 71-year-old female with a past medical history of hypertension, diabetes mellitus, hyperlipidemia, chronic obstructive pulmonary disease, cerebrovascular accident, transferred here from [facility], came to the hospital because of left-sided weakness. I was called to see the patient because of elevated BUN and creatinine. The patient has a creatinine of 2.0 on presentation. She previously has a creatinine of 1.5-1.6 but this was two years ago. Additional Remarks Patient is intubated and now on CPAP, and off sedation. Review of Systems General General Remarks Intubated and sedated. Objective Data Data 10/26/16 10/27/16 19:00 07:00 Intake Total 806 ml 1328 ml Output Total 600 ml 550 ml Balance 206 ml 778 ml IV Total 200 ml 503 ml Tube Feeding 406 ml 705 ml Other 200 ml 120 ml Output Urine Total 600 ml 550 ml # Bowel Movements 0 Vital Signs Date Time Temp Pulse Resp B/P Pulse Ox O2 Delivery O2 Flow Rate FiO2 10/27/16 10:00 97 10/27/16 09:35 99 40 10/27/16 09:35 40 10/27/16 08:00 98.3 75 18 117/56 100 10/27/16 08:00 72 10/27/16 08:00 40 10/27/16 06:00 73 10/27/16 04:18 99 40 10/27/16 04:00 82 10/27/16 04:00 40 10/27/16 04:00 98.3 82 18 109/70 98 10/27/16 02:00 76 10/27/16 01:11 99 40 10/27/16 00:00 40 10/27/16 00:00 75 10/27/16 00:00 98.6 75 18 112/53 99 10/26/16 22:00 83 10/26/16 20:00 78 10/26/16 20:00 40 10/26/16 20:00 98.2 78 18 103/55 100 10/26/16 19:32 100 40 10/26/16 18:00 119 10/26/16 18:00 40 10/26/16 16:45 100 40 10/26/16 16:00 97.8 92 16 106/78 96 10/26/16 14:00 119 10/26/16 13:27 99 40 -: 10/27/16 0526 10/27/16 0526 Physical Exam General Appearance Remarks Intubated and off sedation. Eyes Eye Exam: Pupils Equal Throat Throat Exam: Oral Mucosa [place] & Moist Neck Neck Exam: Neck Supple Pulmonary Resp Exam: No Distress, Rhonchi, Decreased Bases, Diminished Breath Sounds Cardiology CV Exam: Regular, Normal Sinus Rhythm Gastrointestinal/Abdomen GI Exam: Soft, Non-Tender, Bowel Sounds Present, Distended Extremeties Extremities Exam: Moderate Edema, Pitting Edema, Dependent Edema (Both legs has erythema and covered with dressing.) Neurologic Neuro Exam: Moving All Extremities Assessment/Plan Assessment Summary: HIRAM/Acute Renal Failure, Fluid/Volume Overload, CKD Stage III Problem List: (1) Renal insufficiency (2) Leukocytosis (3) Encephalopathy (4) Diabetes mellitus (5) Acute worsening of stage 3 chronic kidney disease Plan Patient has good urine out put. On Lasix once a day. BP is stable, Continue Zosyn, Follow the urine out put and BMP. Creatinine is now stable. Possibly at her baseline. Continue Lasix and antibiotics. Weaning as per CCM. Problem Qualifiers (1) Diabetes mellitus: Bree Dill MD Oct 27, 2016 12:20
[2016-10-27 13:25] LABS: BLOOD GAS BASE EXCESS 0.8 mmol/L (-2-2); BLOOD GAS CARBOXYHEMOGLOBIN 1.4 % (0-4); BLOOD GAS HCO3 27 mmol/L (22-26); BLOOD GAS METHEMOGLOBIN 1.2 % (0-2); BLOOD GAS O2 HGB SATURATION 93 % (90-100); BLOOD GAS OXYGEN CONTENT 11.6 Vol % (12.0-20.0); BLOOD GAS PCO2 56 mmHg (38-42); BLOOD GAS PO2 94 mmHg (61-120); BLOOD GAS TOTAL HGB 8.7 G/DL (12.0-16.0); CRITICAL VALUE YES; OXYGEN DEVICE VENTILATOR; TEMP CORR TO 98.6
[2016-10-27 13:26] LABS: DRAW SITE LT RADIAL; FIO2 40 %; NUMBER OF ARTERIAL PUNCTURES 1; STAT YES; ULNAR PULSE Y; VENT SETTINGS CPAP5 PS10
[2016-10-27] MEDS ORDERED: RESP: ALBUTEROL 2.5 MG/IPRATROPIUM 0.5 MG NEB (PRN) NEB (13:45)
[2016-10-27] MEDS: PANTOPRAZOLE SODIUM 40 MG VIAL IV PUSH SCH (13:56)
--- NOTE | 2016-10-27 14:16 | RADRPT ---
EXAM DATE/TIME: 10/27/2016 12:27 [place] COMPARISON: CHEST SINGLE AP, October 26, 2016, 10:08. INDICATIONS : Shortness of breath. MEDICAL HISTORY : Hypertension. Cardiovascular disease. Cerebrovascular disease. Diabetes. SURGICAL HISTORY : None. ENCOUNTER: Initial ACUITY: 1 day PAIN SCORE: Non-responsive. LOCATION: Bilateral chest FINDINGS: The patient is intubated with the tip of the ET tube 1.6 cm above the kimberlyn. This could be pulled b ack to a better position by being pulled back 1 to 2 cm. There is an NG tube in place with its tip d irected into the stomach. The heart size is within normal limits. There is some mild increased dens ity at the right base. Left lung is grossly clear. CONCLUSION: 1. ET tube in a somewhat low position approximately 1.6 cm above the kimberlyn. This could be pulled b ack to a better position by pulling it back 1 to 2 cm. 2. Suspected atelectasis at the right lung base. King Brown MD on October 27, 2016 at 14:12 Board Certified Radiologist. This report was verified electronically.
[2016-10-27] MEDS: MORPHINE SULFATE 4 MG/ML INJ IV PRN ×2 (18:14→20:37)
[2016-10-27] MEDS: DEXMEDETOMIDINE INJ 1,000 MCG in SODIUM CHLOR 0.9% 250 ML INJ 240 ML IV SCH (22:04)
[2016-10-28] VITALS (17 sets, daily range): BP systolic 120–143; BP diastolic 56–64; PULSE 64–114; RESP 17–22; TEMP 96.9–98.7; O2SAT 91–99
[2016-10-28] MEDS: RESP: ALBUTEROL 2.5 MG/IPRATROPIUM 0.5 MG NEB (SCH) NEB ×5 (03:16→21:03)
[2016-10-28] MEDS: CHLORHEXIDINE GLUCONATE 2 % 1 PACK (2 CLOTHS)(taper/protocol) TOPICAL SCH (04:00)
[2016-10-28] MEDS: INSULIN NovoLIN REGULAR SUPPLEMENTAL SCALE SQ SCH ×4 (05:00→21:21)
[2016-10-28] MEDS: HEPARIN SODIUM - SQ 10,000 UNITS/ML VIAL SQ SCH ×2 (05:14→17:55)
[2016-10-28] MEDS: PIPERACIL-TAZO 2.25 GM PREMIX 50 ML IV SCH (05:14)
[2016-10-28] MEDS: DEXMEDETOMIDINE INJ 1,000 MCG in SODIUM CHLOR 0.9% 250 ML INJ 240 ML IV SCH (05:33)
[2016-10-28 06:04] LABS: AUTOMATED NEUTROPHIL # 5.8 TH/MM3 (1.8-7.7); BASOPHIL # 0.1 TH/MM3 (0-0.2); BASOPHIL % 0.9 % (0.0-2.0); EOSINOPHIL # 0.3 TH/MM3 (0-0.4); EOSINOPHIL % 3.4 % (0.0-4.0); HEMATOCRIT 29.6 % (35.0-46.0); HEMO FLAGS DIFF FINAL; LYMPH % 21.8 % (9.0-44.0); LYMPHOCYTE # 1.9 TH/MM3 (1.0-4.8); MEAN CELL VOLUME 84.6 FL (80.0-100.0); MEAN CORPUSCULAR HEMOGLOBIN 26.9 PG (27.0-34.0); MEAN CORPUSCULAR HGB CONC 31.8 % (32.0-36.0); MONO % 6.7 % (0.0-8.0); NEUT % 67.2 % (16.0-70.0); PLATELET COUNT 370 TH/MM3 (150-450); WHITE BLOOD COUNT 8.6 TH/MM3 (4.0-11.0)
[2016-10-28 07:03] LABS: BICARBONATE 27.3 MEQ/L (21.0-32.0)
--- NOTE | 2016-10-28 07:38 | HHI.CCPN ---
Subjective Remarks/Hospital Course The patient is a 71-year-old female with past medical history of hypertension, diabetes mellitus, hyperlipidemia, obstructive sleep apnea on C-PAP and CVA with residual left-sided weakness. Initially she presented to [place] ED for evaluation of an irregular heartbeat per medical records. The patient apparently went to see her primary care physician, Dr. Alonzo, yesterday and was noted to have an irregular heart rate and referred her to the ER for further evaluation and management. On arrival to the ED, the patient was in renal failure with a BUN of 64, creatinine 2.20, hyperkalemic with a potassium level of 5.7. In addition, she had mild elevation in troponin at 0.13 and leukocytosis with a WBC of 13.0. The patient also has been having increased swelling and erythema of her lower extremities. She was initially admitted under [facility] service and when seen by Dr. Leahy this morning, she was not responsive to any verbal or tactile stimuli. A stat ABG was performed which showed acute hypercapnic respiratory failure with a pH of 7.06, CO2 84, pAO2 81 , bicarb 23, sats of 92%. She was subsequently intubated by the ED physician with Etomidate and succinylcholine and placed on full mechanical ventilation. A repeat ABG post-intubation showed a pH of 7.29, CO2 49, pAO2 of 115, bicarb 32 and sats 96%. Her labs from this morning showed worsening hyperkalemia with potassium level of 6.1 and creatinine 2.30. She was treated with IV insulin, Albuterol sulfate, calcium gluconate, bicarb, Kayexalate and Lasix. A stat CT scan of the brain without contrast was ordered by the primary team. The patient was subsequently transferred to [facility] for further evaluation and management. She was seen by Dr. Dill from nephrology service. A chest x-ray post-intubation showed ET tube above the kimberlyn in addition to pulmonary vascular congestion and bibasilar airspace disease. She is currently sedated with Diprivan and on assist control ventilation. 10/25 Patient is sedated with Diprivan and intubated. Afebrile. CT brain from last night showed no acute disease. 10/26 Patient remains sedated and intubated. Afebrile. Tolerating tube feeds. 10/27 Patient is sedated with Diprivan and intubated. Afebrile. Tolerated CPAP x 3 hrs yesterday however ABG on CPAP showed PH:7.0 with CO2: 52. 10/28 Patient s/p extubation yesterday. Placed on Precedex overnight for agitation. Afebrile. On BIPAP 19/02 with 30% FIO2. Objective Vital Signs Date Time Temp Pulse Resp B/P Pulse Ox O2 Delivery O2 Flow Rate FiO2 10/28/16 06:00 64 10/28/16 04:15 99 30 10/28/16 04:00 98.7 18 127/59 10/28/16 04:00 Bi-Pap Intake and Output 10/27/16 10/27/16 10/28/16 08:00 16:00 00:00 Intake Total 678 ml 413 ml 866 ml Output Total 225 ml 550 ml 700 ml Balance 453 ml -137 ml 166 ml Result Diagram: 10/28/16 0521 10/28/16 0521 Other Results Laboratory Tests Test 10/27/16 10/28/16 13:00 05:21 Blood Gas Puncture Site LT RADIAL Blood Gas Patient Temperature 98.6 Blood Gas HCO3 27 mmol/L Blood Gas Base Excess 0.8 mmol/L Blood Gas Oxygen Saturation 93 % Arterial Blood pH 7.30 Arterial Blood Partial 56 mmHg Pressure CO2 Arterial Blood Partial 94 mmHg Pressure O2 Arterial Blood Oxygen Content 11.6 Vol % Arterial Blood 1.4 % Carboxyhemoglobin Arterial Blood Methemoglobin 1.2 % Blood Gas Hemoglobin 8.7 G/DL Oxygen Delivery Device VENTILATOR Blood Gas Ventilator Setting CPAP5 PS10 Blood Gas Inspired Oxygen 40 % White Blood Count 8.6 TH/MM3 Red Blood Count 3.50 MIL/MM3 Hemoglobin 9.4 GM/DL Hematocrit 29.6 % Mean Corpuscular Volume 84.6 FL Mean Corpuscular Hemoglobin 26.9 PG Mean Corpuscular Hemoglobin 31.8 % Concent Red Cell Distribution Width 22.0 % Platelet Count 370 TH/MM3 Mean Platelet Volume 8.8 FL Neutrophils (%) (Auto) 67.2 % Lymphocytes (%) (Auto) 21.8 % Monocytes (%) (Auto) 6.7 % Eosinophils (%) (Auto) 3.4 % Basophils (%) (Auto) 0.9 % Neutrophils # (Auto) 5.8 TH/MM3 Lymphocytes # (Auto) 1.9 TH/MM3 Monocytes # (Auto) 0.6 TH/MM3 Eosinophils # (Auto) 0.3 TH/MM3 Basophils # (Auto) 0.1 TH/MM3 CBC Comment DIFF FINAL Differential Comment Sodium Level 142 MEQ/L Potassium Level 4.0 MEQ/L Chloride Level 102 MEQ/L Carbon Dioxide Level 27.3 MEQ/L Anion Gap 13 MEQ/L Blood Urea Nitrogen 83 MG/DL Creatinine 2.74 MG/DL Estimat Glomerular Filtration 17 ML/MIN Rate Random Glucose 184 MG/DL Calcium Level 8.2 MG/DL Imaging Last Impressions Chest X-Ray 10/27/16 0000 Signed Impressions: Service Date/Time: Thursday, October 27, 2016 12:27 - CONCLUSION: 1. ET tube in a somewhat low position approximately 1.6 cm above the kimberlyn. This could be pulled back to a better position by pulling it back 1 to 2 cm. 2. Suspected atelectasis at the right lung base. King Brown MD Renal Ultrasound 10/25/16 0000 Signed Impressions: Service Date/Time: October 10:11 - CONCLUSION: 1. Lower pole right renal cyst measuring 4.2 x 3.3 x 4.6 cm. 2. No hydronephrosis, solid mass or calcified calculus. 3. Poor visualization of the bladder due to nondistention. Jaime Norris MD Head CT 10/24/16 0000 Signed Impressions: Service Date/Time: Monday, October 24, 2016 16:56 - CONCLUSION: 1. No acute findings in the brain. 2. Right paranasal sinus disease with air-fluid levels. Anthony Lockhart MD Lower Extremity Ultrasound 10/23/16 0000 Signed Impressions: Service Date/Time: Sunday, October 23, 2016 13:47 - CONCLUSION: The study is negative for deep venous thrombosis bilateral lower extremity. Anthony Lockhart MD Objective Remarks GENERAL: Patient is 71yo lying in bed in NAD. On BIPAP SKIN: Warm and dry. HEAD: Normocephalic. EYES: No scleral icterus. No injection or drainage. NECK: Supple, trachea midline. No JVD or lymphadenopathy. CARDIOVASCULAR: Regular rate and rhythm without murmurs, gallops, or rubs. RESPIRATORY: Breath sounds equal bilaterally. No accessory muscle use. GASTROINTESTINAL: Abdomen soft, non-tender, nondistended. MUSCULOSKELETAL: No cyanosis, + edema with venous stasis. Neuro: On Precedex drip A/P Assessment and Plan 1. VDRF- Extubated 10/27 2. Acute renal failure. 3. s/p Hyperkalemia 4. Encephalopathy multifactorial likely secondary to CO2 narcosis and uremia. 5. Mild elevation in troponin. 6. Leukocytosis 7. Hypertension 8. Hyperglycemia with underlying history of diabetes mellitus. 9. Cellulitis of the lower extremities. 10. UTI 11. Obstructive sleep apnea 12 MRSA pneumonia Plan Neuro: Wean off Precedex drip monitor neuro status and avoid sedatives. CT brain 10/24: No acute intracranial findings Pulm: Continue with oxygen and maintain sats above 92%. Bronchodilators, NIPPV PRN for resp distress. Check ABG CV: Monitor HR and BP and maintain MAP>65 mmHg. Lactic acid level measured 1.0. Echo showed EF: 55%, no RWMA : Monitor renal function I's and O's and avoid nephrotoxins. Renal-Dr. Dill, Lasix 40 mg IV daily Cr: 2.74 today, UO: 1600 ml in 24 hrs Renal US: Right renal cyst, no hydronephrosis ID: Continue with abx (Zosyn, Zyvox) monitor for signs of infections(fever and WBC) 10/24 Sputum: MRSA, recheck sputum cx and d/c Zosyn. GI: on Protonix 40 mg IV daily for GI prophylaxis. Speech eval diet per speech Endo: On SI ( medium scale) for glycemic control. TSH level: 5.2. Heme: Monitor CBC. GI prophylaxis with Protonix 40 mg IV daily and DVT prophylaxis with heparin subcu. Doppler US LE negative for DVT. Will sign off and transfer care to [facility] Level 3 Perla Bonds MD Oct 28, 2016 07:38
[2016-10-28] MEDS: REMOVE OLD PATCH T-DERMAL SCH (09:00)
[2016-10-28] MEDS: FUROSEMIDE 40 MG/4 ML VIAL IV PUSH SCH (09:29)
[2016-10-28] MEDS: LINEZOLID 600 MG TAB PO SCH ×2 (09:29→21:20)
[2016-10-28] MEDS: SODIUM CHLORIDE 0.9% FLUSH 10 ML FLUSH IV FLUSH SCH ×2 (09:29→21:21)
[2016-10-28] MEDS: guaiFENesin E.R. 600 MG TAB PO SCH ×2 (09:29→21:20)
[2016-10-28] MEDS: NICOTINE 7 MG/24 HR PATCH T-DERMAL SCH (09:30)
[2016-10-28 09:36] LABS: BLOOD GAS CARBOXYHEMOGLOBIN 1.5 % (0-4); BLOOD GAS HCO3 28 mmol/L (22-26); BLOOD GAS METHEMOGLOBIN 0.5 % (0-2); BLOOD GAS O2 HGB SATURATION 96 % (90-100); BLOOD GAS OXYGEN CONTENT 12.2 Vol % (12.0-20.0); BLOOD GAS PCO2 47 mmHg (38-42); BLOOD GAS PO2 95 mmHG (61-120); CRITICAL VALUE NO; DRAW SITE LT RADIAL; FIO2 30 %; NUMBER OF ARTERIAL PUNCTURES 1; OXYGEN DEVICE BiPAP; TEMP CORR TO 98.6; VENT SETTINGS IPAP15 EPAP8
[2016-10-28 09:37] LABS: STAT NO; ULNAR PULSE Y
[2016-10-28] MEDS: PANTOPRAZOLE SODIUM 40 MG VIAL IV PUSH SCH (12:43)
[2016-10-28] MEDS: ACETAMINOPHEN/HYDROcodone 325 MG/5 MG TAB PO PRN (14:37)
--- NOTE | 2016-10-28 14:40 | HHI.NPPN ---
Subjective General Problems: Anemia, Edema Renal Failure: Chronic, Acute, Stage III History of Present Illness 71-year-old female with a past medical history of hypertension, diabetes mellitus, hyperlipidemia, chronic obstructive pulmonary disease, cerebrovascular accident, transferred here from [facility], came to the hospital because of left-sided weakness. I was called to see the patient because of elevated BUN and creatinine. The patient has a creatinine of 2.0 on presentation. She previously has a creatinine of 1.5-1.6 but this was two years ago. Additional Remarks Patient is extubated and agitated, want to go home. Review of Systems General General Remarks Intubated and sedated. Objective Data Data 10/27/16 10/28/16 19:00 07:00 Intake Total 413 ml 1296 ml Output Total 550 ml 1050 ml Balance -137 ml 246 ml Intake Oral 580 ml IV Total 113 ml 421 ml Tube Feeding 240 ml 295 ml Other 60 ml Output Urine Total 550 ml 1050 ml # Bowel Movements 0 0 Vital Signs Date Time Temp Pulse Resp B/P Pulse Ox O2 Delivery O2 Flow Rate FiO2 10/28/16 12:00 91 Venturi Mask 6.00 40 10/28/16 12:00 97.3 77 22 120/56 91 10/28/16 12:00 77 10/28/16 10:00 67 10/28/16 09:56 100 Venturi Mask 6.00 40 10/28/16 08:00 97.4 65 20 143/64 99 10/28/16 08:00 65 10/28/16 08:00 99 Bi-Pap 30 10/28/16 06:00 64 10/28/16 04:15 99 30 10/28/16 04:00 98.7 66 18 127/59 98 10/28/16 04:00 98 Bi-Pap 30 10/28/16 04:00 66 10/28/16 02:00 65 10/28/16 01:14 99 30 10/28/16 00:00 98.0 68 17 127/60 99 10/28/16 00:00 68 10/28/16 00:00 99 Bi-Pap 30 10/27/16 22:10 100 40 10/27/16 22:00 66 10/27/16 20:44 18 10/27/16 20:18 98 BiPAP 40 10/27/16 20:00 99 Bi-Pap 40 10/27/16 20:00 98.4 84 19 141/65 99 10/27/16 20:00 80 10/27/16 19:12 98 40 10/27/16 18:00 86 10/27/16 16:00 84 10/27/16 16:00 96 Bi-Pap 40 10/27/16 16:00 97.5 85 18 137/61 96 -: 10/28/16 0521 10/28/16 0521 Physical Exam General Appearance: No Acute Distress, Anxious Eyes Eye Exam: Pupils Equal Throat Throat Exam: Oral Mucosa [place] & Moist Neck Neck Exam: Neck Supple Pulmonary Resp Exam: No Distress, Rhonchi, Decreased Bases, Diminished Breath Sounds Cardiology CV Exam: Regular, Normal Sinus Rhythm Gastrointestinal/Abdomen GI Exam: Soft, Non-Tender, Bowel Sounds Present, Distended Extremeties Extremities Exam: Moderate Edema, Pitting Edema, Dependent Edema (Both legs has erythema and covered with dressing.) Neurologic Neuro Exam: Alert, Awake Assessment/Plan Assessment Summary: HIRAM/Acute Renal Failure, Fluid/Volume Overload, CKD Stage III Problem List: (1) Renal insufficiency (2) Leukocytosis (3) Encephalopathy (4) Diabetes mellitus (5) Acute worsening of stage 3 chronic kidney disease Plan Patient has good urine out put. On Lasix once a day. BP is stable, Continue Zosyn, Follow the urine out put and BMP. Creatinine is now stable. Possibly at her baseline. Continue Lasix and antibiotics. D/W family , both son. Problem Qualifiers (1) Diabetes mellitus: Bree Dill MD Oct 28, 2016 14:40
[2016-10-28] MEDS: MORPHINE SULFATE 4 MG/ML INJ IV PRN ×2 (15:25→22:43)
[2016-10-28] MEDS: ACETAMINOPHEN/HYDROcodone 325 MG/7.5 MG TAB PO PRN ×2 (17:55→22:10)
[2016-10-28] MEDS: ONDANSETRON HCL 4 MG/2 ML VIAL IVP PRN (22:21)
[2016-10-29] VITALS (17 sets, daily range): BP systolic 114–147; BP diastolic 53–66; PULSE 87–109; RESP 12–22; TEMP 97.8–98.9; O2SAT 92–97
[2016-10-29] MEDS: RESP: ALBUTEROL 2.5 MG/IPRATROPIUM 0.5 MG NEB (SCH) NEB ×7 (00:23→23:47)
[2016-10-29] MEDS: CHLORHEXIDINE GLUCONATE 2 % 1 PACK (2 CLOTHS)(taper/protocol) TOPICAL SCH (04:00)
[2016-10-29] MEDS: HEPARIN SODIUM - SQ 10,000 UNITS/ML VIAL SQ SCH ×2 (04:37→17:22)
[2016-10-29] MEDS: INSULIN NovoLIN REGULAR SUPPLEMENTAL SCALE SQ SCH ×4 (04:43→23:00)
[2016-10-29 05:43] LABS: AUTOMATED NEUTROPHIL # 6.7 TH/MM3 (1.8-7.7); BASOPHIL # 0.1 TH/MM3 (0-0.2); BASOPHIL % 0.6 % (0.0-2.0); EOSINOPHIL # 0.1 TH/MM3 (0-0.4); EOSINOPHIL % 0.6 % (0.0-4.0); HEMATOCRIT 31.8 % (35.0-46.0); HEMO FLAGS DIFF FINAL; LYMPH % 21.7 % (9.0-44.0); LYMPHOCYTE # 2.1 TH/MM3 (1.0-4.8); MEAN CELL VOLUME 85.9 FL (80.0-100.0); MEAN CORPUSCULAR HEMOGLOBIN 26.6 PG (27.0-34.0); MONO % 9.3 % (0.0-8.0); NEUT % 67.8 % (16.0-70.0); PLATELET COUNT 408 TH/MM3 (150-450); RED BLOOD COUNT 3.69 MIL/MM3 (4.00-5.30); RED CELL DISTRIBUTION WIDTH 22.1 % (11.6-17.2); WHITE BLOOD COUNT 9.8 TH/MM3 (4.0-11.0)
[2016-10-29 06:10] LABS: BICARBONATE 25.1 MEQ/L (21.0-32.0); POTASSIUM 3.8 MEQ/L (3.5-5.1)
--- NOTE | 2016-10-29 08:18 | HHI.PR ---
Subjective Remarks in no acute distress- on BiPaP. afebrile. denies pain. d/w the RN and no acute issues over night. Objective Vitals Vital Signs Date Time Temp Pulse Resp B/P Pulse Ox O2 Delivery O2 Flow Rate FiO2 10/29/16 06:00 93 10/29/16 04:16 96 35 10/29/16 04:00 97 10/29/16 04:00 98.9 97 12 139/64 97 10/29/16 04:00 Bi-Pap 10/29/16 02:00 102 10/29/16 00:23 92 35 10/29/16 00:00 109 10/29/16 00:00 97.8 109 22 147/66 95 10/29/16 00:00 Bi-Pap 10/28/16 22:48 20 10/28/16 22:48 20 10/28/16 22:47 98 Venturi Mask 6.00 35 10/28/16 22:00 101 10/28/16 21:04 99 Venturi Mask 6.00 50 10/28/16 20:00 97.6 108 20 132/63 94 10/28/16 20:00 94 Venturi Mask 6.00 40 10/28/16 19:30 98 10/28/16 18:00 114 10/28/16 16:00 94 Venturi Mask 6.00 40 10/28/16 16:00 95 10/28/16 16:00 96.9 98 18 132/57 94 10/28/16 14:00 93 10/28/16 12:00 91 Venturi Mask 6.00 40 10/28/16 12:00 97.3 77 22 120/56 91 10/28/16 12:00 77 10/28/16 10:00 67 10/28/16 09:56 100 Venturi Mask 6.00 40 I/O 10/28/16 10/28/16 10/28/16 10/29/16 10/29/16 10/29/16 07:00 15:00 23:00 07:00 15:00 23:00 Intake Total 430 ml 240 ml 200 ml Output Total 350 ml 650 ml 400 ml 200 ml Balance 80 ml -650 ml -160 ml 0 ml Intake Oral 100 ml 240 ml 200 ml IV Total 330 ml Output Urine Total 350 ml 650 ml 350 ml 200 ml Emesis 50 ml # Bowel Movements 0 1 Result Diagram: 10/29/16 0532 10/29/16 0532 Imaging Last Impressions Chest X-Ray 10/27/16 0000 Signed Impressions: Service Date/Time: Thursday, October 27, 2016 12:27 - CONCLUSION: 1. ET tube in a somewhat low position approximately 1.6 cm above the kim[place]. This could be pulled back to a better position by pulling it back 1 to 2 cm. 2. Suspected atelectasis at the right lung base. King Brown MD Renal Ultrasound 10/25/16 0000 Signed Impressions: Service Date/Time: October 10:11 - CONCLUSION: 1. Lower pole right renal cyst measuring 4.2 x 3.3 x 4.6 cm. 2. No hydronephrosis, solid mass or calcified calculus. 3. Poor visualization of the bladder due to nondistention. Jaime Norris MD Head CT 10/24/16 0000 Signed Impressions: Service Date/Time: Monday, October 24, 2016 16:56 - CONCLUSION: 1. No acute findings in the brain. 2. Right paranasal sinus disease with air-fluid levels. Anthony Lockhart MD Lower Extremity Ultrasound 10/23/16 0000 Signed Impressions: Service Date/Time: Sunday, October 23, 2016 13:47 - CONCLUSION: The study is negative for deep venous thrombosis bilateral lower extremity. Anthony Lockhart MD Objective Remarks GENERAL: on BiPaP CARDIOVASCULAR: Regular rate and irregular rhythm without murmurs, gallops, or rubs. RESPIRATORY: diminished air entry bilaterally GASTROINTESTINAL: Abdomen soft, non-tender, nondistended. Normal, active bowel sounds MUSCULOSKELETAL: Extremities with bilateral pedal edema NEURO: Alert & Oriented x4 to person, place, time, situation. Moves all ext x4 Procedures intubation/ extubation Medications and IVs Current Medications Aspirin (Aspirin Chew) 162 mg ONCE ONCE PO Last administered on 10/23/16 12: 21; Start 10/23/16 at 12:15; Stop 10/23/16 at 12:16; Status DC Sodium Chloride 2 ml 2 ml UNSCH PRN IVF FLUSH AFTER USING IV ACCESS; Start at 12:15 Sodium Chloride (NS 500 ml Inj) 500 ml @ 500 mls/hr ONCE ONCE IV Last administered on 10/23/16 12:21; Start 10/23/16 at 12:15; Stop 10/23/16 at 13:14 ; Status DC Morphine Sulfate (Morphine Inj) 4 mg ONCE ONCE SQ ; Start 10/23/16 at 13:45; Stop 10/23/16 at 13:48; Status DC Morphine Sulfate (Morphine Inj) 4 mg ONCE ONCE IV PUSH Last administered on 13:49; Start 10/23/16 at 14:00; Stop 10/23/16 at 14:01; Status DC Calcium Gluconate (Calcium Gluconate Inj) 1 gm ONCE ONCE SLOW IVP Last administered on 10/23/16 14:44; Start 10/23/16 at 14:45; Stop 10/23/16 at 14:46 ; Status DC Insulin Human Regular (NovoLIN R INJ) 10 units ONCE ONCE IV PUSH Last administered on 10/23/16 14:44; Start 10/23/16 at 14:45; Stop 10/23/16 at 14:46 ; Status DC Dextrose (D50w (Vial) Inj) 50 ml ONCE ONCE IV PUSH Last administered on 14:43; Start 10/23/16 at 14:45; Stop 10/23/16 at 14:46; Status DC Sodium Bicarbonate (Sodium Bicarbonate 8.4% Inj) 50 meq ONCE ONCE SLOW IVP Last administered on 10/23/16 14:44; Start 10/23/16 at 14:45; Stop 10/23/16 at 14:46; Status DC Sodium Polystyrene Sulfonate 15 gm 15 gm ONCE ONCE PO Last administered on 14:44; Start 10/23/16 at 14:45; Stop 10/23/16 at 14:46; Status DC Vancomycin HCl 1000 mg/Sodium Chloride 250 ml @ 250 mls/hr ONCE ONCE IV Last administered on 10/23/16 15:35; Start 10/23/16 at 15:30; Stop 10/23/16 at 16:29 ; Status DC Ceftriaxone Sodium/Sodium Chloride (Rocephin Inj/NS Inj) 100 ml @ 200 mls/hr ONCE ONCE IV ; Start 10/23/16 at 15:45; Stop 10/23/16 at 16:14; Status Cancel Dextrose (D50w (Vial) Inj) 25 ml UNSCH PRN IV PUSH HYPOGLYCEMIA-SEE COMMENTS; Start 10/23/16 at 15:45; Stop 10/26/16 at 09:05; Status DC Glucagon (Glucagon Inj) 1 mg UNSCH PRN OTHER HYPOGLYCEMIA-SEE COMMENTS; Start 10/23/16 at 15:45; Stop 10/26/16 at 09:05; Status DC Insulin Aspart (NovoLOG SUPPLEMENTAL SCALE) 1 ACHS SLIDING SCALE SQ Last administered on 10/23/16 16:36; Start 10/23/16 at 16:00; Stop 10/24/16 at 12:00 ; Status DC Nitroglycerin 0.4 mg 0.4 mg Q5M PRN SL X 3 doses for chest pain; Start at 16:00 Piperacillin Sod/ Tazobactam Sod (Zosyn 3.375 Gm Premix) 50 ml @ 100 mls/hr Q6H IV Last administered on 10/24/16 06:52; Start 10/23/16 at 18:00; Stop at 09:53; Status DC Guaifenesin/ Codeine Phosphate (Robitussin Ac 200-20 Mg/10 ml Liq) 10 ml Q4H PRN PO COUGH Last administered on 10/28/16 22:09; Start 10/23/16 at 16:00 Guaifenesin 600 mg 600 mg BID PO Last administered on 10/28/16 21:20; Start at 21:00 Sodium Chloride (NS 1000 ml Inj) 1,000 ml @ 100 mls/hr Q10H IV Last administered on 10/23/16 18:09; Start 10/23/16 at 15:48; Stop 10/24/16 at 07:06 ; Status DC Sodium Chloride (NS Flush) 2 ml UNSCH PRN IV FLUSH FLUSH AFTER USING IV ACCESS ; Start 10/23/16 at 16:00 Sodium Chloride (NS Flush) 2 ml BID IV FLUSH Last administered on 10/28/16 21: 21; Start 10/23/16 at 21:00 Ondansetron HCl (Zofran Inj) 4 mg Q6H PRN IVP NAUSEA OR VOMITING Last administered on 10/28/16 22:21; Start 10/23/16 at 16:00 Bisacodyl (Dulcolax Supp) 10 mg DAILY PRN RECTAL CONSTIPATION; Start 10/23/16 at 16:00 Heparin Sodium (Porcine) (Heparin Inj) 5,000 units Q12H SQ Last administered on 10/29/16 04:37; Start 10/23/16 at 18:00 Acetaminophen (Tylenol) 650 mg Q6H PRN PO PAIN SCALE 1 TO 2, T > 101; Start at 16:00 Acetaminophen/ Hydrocodone Bitart ([place] 5-325 Mg) 1 tab Q4H PRN PO PAIN SCALE 3 TO 5 Last administered on 10/28/16 14:37; Start 10/23/16 at 16:00 Acetaminophen/ Hydrocodone Bitart ([place] 7.5-325 Mg) 1 tab Q4H PRN PO PAIN SCALE 6 TO 10 Last administered on 10/28/16 22:10; Start 10/23/16 at 16:00 Morphine Sulfate (Morphine Inj) 1 mg Q3H PRN IV BREAKTHROUGH PAIN Last administered on 10/28/16 22:43; Start 10/23/16 at 16:00 Naloxone HCl (Narcan Inj) 0.4 mg UNSCH PRN IV SEE LABEL COMMENTS; Start at 16:00 Insulin Detemir (Levemir Inj) 37 units HS SQ Last administered on 10/23/16 22: 27; Start 10/23/16 at 21:00; Stop 10/24/16 at 08:37; Status DC Insulin Human Regular (NovoLIN R INJ) 6 units ONCE ONCE SQ ; Start 10/23/16 at 16:15; Stop 10/23/16 at 16:16; Status DC Hydralazine HCl (Apresoline Inj) 10 mg Q6H PRN IV SBP> OR = 180, DBP> OR = 100 ; Start 10/23/16 at 19:15 Clonidine (Catapres) 0.1 mg Q6H PRN PO SBP> OR = 180, DBP> OR = 100; Start at 19:15 Sodium Polystyrene Sulfonate (Kayexalate Liq) 15 gm QID PO Last administered on 10/24/16 13:43; Start 10/23/16 at 21:00; Stop 10/24/16 at 13:01; Status DC Insulin Human Regular (NovoLIN R INJ) 10 units ONCE ONCE IV PUSH Last administered on 10/23/16 19:15; Start 10/23/16 at 19:15; Stop 10/23/16 at 19:40 ; Status DC Dextrose (D50w (Vial) Inj) 50 ml ONCE ONCE IV PUSH Last administered on 20:09; Start 10/23/16 at 19:15; Stop 10/23/16 at 19:40; Status DC Calcium Gluconate (Calcium Gluconate Inj) 1 gm ONCE ONCE IV Last administered on 10/23/16 20:09; Start 10/23/16 at 19:15; Stop 10/23/16 at 19:41; Status DC Albuterol Sulfate (Albuterol Concentrated Neb) 10 mg ONCE ONCE INH Last administered on 10/23/16 21:55; Start 10/23/16 at 19:15; Stop 10/23/16 at 19:41 ; Status DC Insulin Human Regular (NovoLIN R INJ) 10 units ONCE ONCE IV PUSH Last administered on 10/24/16 05:17; Start 10/24/16 at 03:45; Stop 10/24/16 at 03:47 ; Status DC Dextrose (D50w (Vial) Inj) 50 ml ONCE ONCE IV PUSH Last administered on 05:18; Start 10/24/16 at 03:45; Stop 10/24/16 at 03:47; Status DC Calcium Gluconate (Calcium Gluconate Inj) 1 gm ONCE ONCE IV PUSH Last administered on 10/24/16 05:19; Start 10/24/16 at 03:45; Stop 10/24/16 at 03:47 ; Status DC Sodium Polystyrene Sulfonate (Kayexalate Enema) 30 gm ONCE ONCE RECTAL ; Start 10/24/16 at 03:45; Stop 10/24/16 at 03:46; Status Cancel Sodium Polystyrene Sulfonate (Kayexalate Liq) 30 gm ONCE ONCE RECTAL Last administered on 10/24/16 05:20; Start 10/24/16 at 05:00; Stop 10/24/16 at 05:01 ; Status DC Furosemide (Lasix Inj) 40 mg ONCE ONCE IV PUSH Last administered on 10/24/16 09:08; Start 10/24/16 at 07:15; Stop 10/24/16 at 07:29; Status DC Succinylcholine Chloride (Quelicin Inj) 200 mg STK-MED ONCE .ROUTE Last administered on 10/24/16 09:09; Start 10/24/16 at 07:37; Stop 10/24/16 at 07:38 ; Status DC Etomidate 20 mg 20 mg STK-MED ONCE .ROUTE Last administered on 10/24/16 09:08 ; Start 10/24/16 at 07:38; Stop 10/24/16 at 07:39; Status DC Propofol (Diprivan 1000 Mg/100ml Inj) 100 ml @ 0 mls/hr TITRATE IV Last administered on 10/27/16 06:31; Start 10/24/16 at 08:45; Stop 10/27/16 at 13:41 ; Status DC Insulin Human Regular (NovoLIN R INJ) 8 units ONCE ONCE IV PUSH Last administered on 10/24/16 09:37; Start 10/24/16 at 08:45; Stop 10/24/16 at 08:46 ; Status DC Dextrose (D50w (Syr) Inj) 50 ml ONCE ONCE IV Last administered on 10/24/16 09 :37; Start 10/24/16 at 08:45; Stop 10/24/16 at 08:46; Status DC Sodium Bicarbonate 50 meq 50 meq ONCE ONCE IV PUSH Last administered on 09:38; Start 10/24/16 at 08:45; Stop 10/24/16 at 08:46; Status DC Calcium Gluconate/ Sodium Chloride (Calcium Gluconate Inj/NS Inj) 110 ml @ 110 mls/hr ONCE ONCE IV Last administered on 10/24/16 09:09; Start 10/24/16 at 09 :00; Stop 10/24/16 at 09:59; Status DC Sodium Polystyrene Sulfonate 15 gm 15 gm ONCE ONCE PO ; Start 10/24/16 at 08:45 ; Stop 10/24/16 at 08:46; Status DC Piperacillin Sod/ Tazobactam Sod (Zosyn 2.25 Gm Premix) 50 ml @ 100 mls/hr Q6HR IV Last administered on 10/28/16 05:14; Start 10/24/16 at 12:00; Stop at 07:39; Status DC Insulin Aspart (NovoLOG SUPPLEMENTAL SCALE) 1 Q6H SQ Last administered on 05:21; Start 10/24/16 at 17:00; Stop 10/26/16 at 08:58; Status DC Albuterol/ Ipratropium (Duoneb Neb) 1 ampule Q6HR NEB NEB Last administered on 10/27/16 09:34; Start 10/24/16 at 13:00; Stop 10/27/16 at 13:49; Status DC Pantoprazole Sodium (Protonix Inj) 40 mg Q24H IV PUSH Last administered on 10/28 12:43; Start 10/24/16 at 13:00 Furosemide (Lasix Inj) 40 mg BID@09,18 IV PUSH Last administered on 10/25/16 08:49; Start 10/24/16 at 13:00; Stop 10/25/16 at 09:20; Status DC Miscellaneous Information Patient in critical care unit? Ass... [id number] .XX ; Start 10/24/16 at 19:30 Chlorhexidine Gluconate (Chlorhexidine 2% Cloth) 3 pack DAILY@04 TOPICAL Last administered on 10/29/16 04:00; Start 10/25/16 at 04:00; Stop 10/29/16 at 04:01 ; Status DC Chlorhexidine Gluconate (Chlorhexidine 2% Cloth) 3 pack UNSCH PRN TOPICAL HYGIENIC CARE; Start 10/24/16 at 19:30; Stop 10/29/16 at 19:18 Furosemide (Lasix Inj) 40 mg DAILY IV PUSH Last administered on 10/28/16 09:29 ; Start 10/26/16 at 09:00 Nicotine (Habitrol 7 Mg Patch.24 Hr) 1 patch DAILY T-DERMAL Last administered on 10/28/16 09:30; Start 10/25/16 at 16:45 Miscellaneous Information 1 DAILY T-DERMAL Last administered on 10/28/16 09:00 ; Start 10/26/16 at 09:00 Linezolid (Zyvox) 600 mg Q12HR PO Last administered on 10/28/16 21:20; Start 10/26/16 at 09:00 Dextrose (D50w (Vial) Inj) 25 ml UNSCH PRN IV PUSH HYPOGLYCEMIA-SEE COMMENTS; Start 10/26/16 at 09:00 Glucagon (Glucagon Inj) 1 mg UNSCH PRN OTHER HYPOGLYCEMIA-SEE COMMENTS; Start 10/26/16 at 09:00 Insulin Human Regular (NovoLIN R SUPPLEMENTAL SCALE) 1 Q6H SQ ; Start 10/26/16 at 09:00; Stop 10/26/16 at 16:56; Status DC Insulin Human Regular (NovoLIN R SUPPLEMENTAL SCALE) 1 Q6H SQ Last administered on 10/29/16 04:43; Start 10/26/16 at 17:00 Albuterol/ Ipratropium (Duoneb Neb) 1 ampule Q4HR NEB NEB Last administered on 10/29/16 03:40; Start 10/27/16 at 16:00 Albuterol/ Ipratropium 1 ampule 1 ampule Q2HR NEB PRN NEB SHORTNESS OF BREATH; Start 10/27/16 at 13:45 Dexmedetomidine HCl/Sodium Chloride (Precedex Inj/NS 250 ml Inj) 250 ml @ 0 mls/ hr TITRATE IV Last administered on 10/28/16 05:33; Start 10/27/16 at 21:30; Stop 10/28/16 at 12:10; Status DC A/P Assessment and Plan A/P 1. VDRF- Extubated 10/27 keep on oxygen to keep O2 sat > 90%- continue with neb treatment-BiPaP as needed. will consult pulmonary. 2. Acute renal failure- renal function stable- renal sonogram with no hydronephrosis- nephrology following. 3. Hyperkalemia-resolved 4. Encephalopathy multifactorial likely secondary to CO2 narcosis and uremia - improving. 5. Mild elevation in troponin likely due to respiratory failure 6. Leukocytosis-has resolved. 7. Hypertension- BP fairly stable- will continue to monitor. 8. Hyperglycemia with underlying history of diabetes mellitus- continue accu- check with SSI. 9. Cellulitis of the lower extremities- continue Abx- wound care following. 10. Obstructive sleep apnea; BiPaP as needed. 11 MRSA pneumonia; continue Zyvox DVT/GI prophylaxis with heparin and PPI. transfer to telemetry after seen and cleared by pulmonary. d/w the Lety Ceballos MD Oct 29, 2016 08:18
[2016-10-29] MEDS: SODIUM CHLORIDE 0.9% FLUSH 10 ML FLUSH IV FLUSH SCH ×2 (08:59→23:04)
[2016-10-29] MEDS: guaiFENesin E.R. 600 MG TAB PO SCH ×2 (08:59→23:04)
[2016-10-29] MEDS: REMOVE OLD PATCH T-DERMAL SCH (09:00)
[2016-10-29] MEDS: LINEZOLID 600 MG TAB PO SCH ×2 (09:00→23:04)
[2016-10-29] MEDS: NICOTINE 7 MG/24 HR PATCH T-DERMAL SCH (09:00)
[2016-10-29] MEDS: FUROSEMIDE 40 MG/4 ML VIAL IV PUSH SCH (09:00)
[2016-10-29] MEDS: ONDANSETRON HCL 4 MG/2 ML VIAL IVP PRN (09:17)
[2016-10-29] MEDS: ACETAMINOPHEN/HYDROcodone 325 MG/7.5 MG TAB PO PRN (09:18)
[2016-10-29] MEDS: SODIUM CHLORIDE 0.9% FLUSH 10 ML FLUSH IV FLUSH PRN ×3 (09:18→12:41)
[2016-10-29] MEDS: MORPHINE SULFATE 4 MG/ML INJ IV PRN (10:39)
--- NOTE | 2016-10-29 11:31 | HHI.NPPN ---
Subjective General Problems: Anemia, Edema Renal Failure: Chronic, Acute, Stage III History of Present Illness 71-year-old female with a past medical history of hypertension, diabetes mellitus, hyperlipidemia, chronic obstructive pulmonary disease, cerebrovascular accident, transferred here from [facility], came to the hospital because of left-sided weakness. I was called to see the patient because of elevated BUN and creatinine. The patient has a creatinine of 2.0 on presentation. She previously has a creatinine of 1.5-1.6 but this was two years ago. Additional Remarks Patient is alert, not fully oriented, not in distress. Review of Systems General General Remarks Intubated and sedated. Objective Data Data 10/28/16 10/29/16 19:00 07:00 Intake Total 440 ml Output Total 650 ml 600 ml Balance -650 ml -160 ml Intake Oral 440 ml Output Urine Total 650 ml 550 ml Emesis 50 ml # Bowel Movements 1 Vital Signs Date Time Temp Pulse Resp B/P Pulse Ox O2 Delivery O2 Flow Rate FiO2 10/29/16 06:00 93 10/29/16 04:16 96 35 10/29/16 04:00 97 10/29/16 04:00 98.9 97 12 139/64 97 10/29/16 04:00 Bi-Pap 10/29/16 02:00 102 10/29/16 00:23 92 35 10/29/16 00:00 109 10/29/16 00:00 97.8 109 22 147/66 95 10/29/16 00:00 Bi-Pap 10/28/16 22:48 20 10/28/16 22:48 20 10/28/16 22:47 98 Venturi Mask 6.00 35 10/28/16 22:00 101 10/28/16 21:04 99 Venturi Mask 6.00 50 10/28/16 20:00 97.6 108 20 132/63 94 10/28/16 20:00 94 Venturi Mask 6.00 40 10/28/16 19:30 98 10/28/16 18:00 114 10/28/16 16:00 94 Venturi Mask 6.00 40 10/28/16 16:00 95 10/28/16 16:00 96.9 98 18 132/57 94 10/28/16 14:00 93 10/28/16 12:00 91 Venturi Mask 6.00 40 10/28/16 12:00 97.3 77 22 120/56 91 10/28/16 12:00 77 -: 10/29/16 0532 10/29/16 0532 Physical Exam General Appearance: No Acute Distress, Anxious Eyes Eye Exam: Pupils Equal Throat Throat Exam: Oral Mucosa [place] & Moist Neck Neck Exam: Neck Supple Pulmonary Resp Exam: No Distress, Rhonchi, Decreased Bases, Diminished Breath Sounds Cardiology CV Exam: Regular, Normal Sinus Rhythm Gastrointestinal/Abdomen GI Exam: Soft, Non-Tender, Bowel Sounds Present, Distended Extremeties Extremities Exam: Moderate Edema, Pitting Edema, Dependent Edema (Both legs has erythema and covered with dressing.) Neurologic Neuro Exam: Alert, Awake Assessment/Plan Assessment Summary: HIRAM/Acute Renal Failure, Fluid/Volume Overload, CKD Stage III Problem List: (1) Renal insufficiency (2) Leukocytosis (3) Encephalopathy (4) Diabetes mellitus (5) Acute worsening of stage 3 chronic kidney disease Plan Patient has good urine out put. On Lasix once a day. BP is stable, Continue Zosyn, Follow the urine out put and BMP. Creatinine is now stable. Possibly close to her baseline. Continue Lasix and antibiotics. Follow the BMP. Problem Qualifiers (1) Diabetes mellitus: Bree Dill MD Oct 29, 2016 11:31
[2016-10-29] MEDS: PANTOPRAZOLE SODIUM 40 MG VIAL IV PUSH SCH (12:41)
[2016-10-30] VITALS (17 sets, daily range): BP systolic 113–142; BP diastolic 41–58; PULSE 88–107; RESP 14–19; TEMP 98.2–99.3; O2SAT 93–100
[2016-10-30] MEDS: RESP: ALBUTEROL 2.5 MG/IPRATROPIUM 0.5 MG NEB (SCH) NEB ×6 (03:19→23:14)
[2016-10-30] MEDS: INSULIN NovoLIN REGULAR SUPPLEMENTAL SCALE SQ SCH ×4 (05:00→22:56)
[2016-10-30] MEDS: HEPARIN SODIUM - SQ 10,000 UNITS/ML VIAL SQ SCH ×2 (06:26→17:10)
--- NOTE | 2016-10-30 08:22 | MB ---
cc: HEATH EVERETT,ANGEL BOYD DATE OF CONSULTATION: 10/29/[address] Machado REASON FOR CONSULTATION Evaluation of respiratory failure. HISTORY OF PRESENT ILLNESS Ms. Mackey is a morbidly obese 71-year-old white female with a history of COPD, obstructive sleep apnea, history of CVA with left-sided weakness. She was seen by her primary care physician, Dr. Alonzo, for shortness of breath and was found to have atrial fibrillation, and sent to the emergency room at [facility]. She was evaluated there and became lethargic and blood gas showed respiratory acidosis. The patient was intubated and transferred. She has been extubated for two days. She is still on BiPAP. She is able to communicate and has mild shortness of breath. Does not have fever or chills. No night sweats. LABORATORY Her lab evaluation reveals blood gas on 30% BiPAP, pH 7.39, PCO2 47, PO2 95, bicarb 28. WBC count 9.8, hemoglobin 9.8, hematocrit 31.8, MCV 85, platelet count 408. Sodium 130, potassium 3.8, chloride 98, CO2 25, BUN 17, creatinine 2.80. INR 1.0. IMAGING Chest x-ray shows mild atelectasis. PAST MEDICAL HISTORY 1. COPD. 2. Obstructive sleep apnea. 3. Diabetes mellitus. 4. Renal insufficiency. 5. Left-sided weakness. 6. Hypertension. PAST SURGICAL HISTORY 1. Cholecystectomy. 2. Hip surgery. MEDICATIONS She is currently takin. Albuterol/ipratropium nebulizer treatment. 2. Insulin. 3. Lasix 40 mg a day. 4. Zyvox 600 mg a day. 5. Nicotine patch. 6. Protonix 40 mg a day. 7. Mucinex 600 mg twice a day. ALLERGIES No known drug allergies. SOCIAL HISTORY She lives with her daughter, has a history of smoking but for now she snuffs tobacco. FAMILY HISTORY She has four daughters. REVIEW OF SYSTEMS The patient is very lethargic and not able to cooperate. PHYSICAL EXAMINATION GENERAL: An obese female with mild shortness of breath. She is on BiPAP. VITAL SIGNS: Blood pressure 129/58, heart rate 101, respirations 16, temperature 98.7. HEENT: Pupils are equal and react to light. NECK: Supple. JVP not raised. CHEST: She has bilateral expiratory rhonchi. CARDIOVASCULAR: S1, S2 normal. ABDOMEN: Soft, nontender. Bowel sounds are present. EXTREMITIES: She has swelling in the legs with chronic skin changes. IMPRESSION 1. Hypercapnic respiratory failure, status post extubation. 2. COPD. 3. Obstructive sleep apnea. 4. Diabetes mellitus. 5. Nicotine use. 6. Hypertension. 7. Morbid obesity. PLAN Will keep her on BiPAP 15/8, FIO2 35%. Keep the saturation between 88 and 92%. Continue aerosol treatment. Monitor her blood sugar and blood pressure. Once she gets better will get pulmonary function studies. Further treatment will depend on her course in the hospital. Thank you Dr. Machado for this consult. MD TESFAYE Navarrete/BT /7:56 PM /8:01 AM
[2016-10-30] MEDS: guaiFENesin E.R. 600 MG TAB PO SCH ×2 (08:53→20:43)
[2016-10-30] MEDS: LINEZOLID 600 MG TAB PO SCH ×2 (08:53→20:44)
[2016-10-30] MEDS: NICOTINE 7 MG/24 HR PATCH T-DERMAL SCH (08:53)
[2016-10-30] MEDS: FUROSEMIDE 40 MG/4 ML VIAL IV PUSH SCH (08:54)
[2016-10-30] MEDS: SODIUM CHLORIDE 0.9% FLUSH 10 ML FLUSH IV FLUSH SCH ×2 (08:54→20:45)
[2016-10-30] MEDS: REMOVE OLD PATCH T-DERMAL SCH (09:00)
--- NOTE | 2016-10-30 11:22 | HHI.PR ---
Subjective Remarks still on four liters of oxygen via N/C. afebrile. at times complaining of pain to the legs- worse at the time of dressing change. d/w the RN. Objective Vitals Vital Signs Date Time Temp Pulse Resp B/P Pulse Ox O2 Delivery O2 Flow Rate FiO2 10/30/16 10:00 102 10/30/16 08:01 94 Nasal Cannula 4.00 10/30/16 08:00 94 Nasal Cannula 4.00 10/30/16 08:00 97 10/30/16 08:00 98.7 96 16 115/55 94 10/30/16 06:00 92 10/30/16 04:00 Bi-Pap 4.00 35 10/30/16 04:00 92 10/30/16 04:00 98.4 92 14 125/58 96 10/30/16 02:25 93 4.00 10/30/16 02:00 88 10/30/16 00:00 88 10/30/16 00:00 98.2 92 14 125/58 96 10/30/16 00:00 Bi-Pap 35 10/30/16 00:00 94 35 10/29/16 22:00 98 10/29/16 20:00 98.8 93 15 114/53 97 10/29/16 20:00 Bi-Pap 35 10/29/16 20:00 93 10/29/16 19:47 97 BiPAP 35 10/29/16 19:41 94 35 10/29/16 18:00 89 10/29/16 17:27 94 35 10/29/16 17:25 95 Bi-Pap 35 10/29/16 16:00 98.7 101 14 129/58 94 10/29/16 16:00 94 Nasal Cannula 10/29/16 16:00 101 10/29/16 14:00 103 10/29/16 12:00 97 10/29/16 12:00 98.0 97 14 129/58 93 10/29/16 12:00 93 Nasal Cannula I/O 10/29/16 10/29/16 10/29/16 10/30/16 10/30/16 10/30/16 07:00 15:00 23:00 07:00 15:00 23:00 Intake Total 200 ml 480 ml 150 ml 200 ml Output Total 200 ml 350 ml 250 ml 200 ml Balance 0 ml 130 ml -100 ml 0 ml Intake Oral 200 ml 480 ml 150 ml 200 ml Output Urine Total 200 ml 350 ml 250 ml 200 ml Result Diagram: 10/29/16 0532 10/29/16 0532 Imaging Last Impressions Chest X-Ray 10/27/16 0000 Signed Impressions: Service Date/Time: Thursday, October 27, 2016 12:27 - CONCLUSION: 1. ET tube in a somewhat low position approximately 1.6 cm above the kimberlyn. This could be pulled back to a better position by pulling it back 1 to 2 cm. 2. Suspected atelectasis at the right lung base. King Brown MD Renal Ultrasound 10/25/16 0000 Signed Impressions: Service Date/Time: October 10:11 - CONCLUSION: 1. Lower pole right renal cyst measuring 4.2 x 3.3 x 4.6 cm. 2. No hydronephrosis, solid mass or calcified calculus. 3. Poor visualization of the bladder due to nondistention. Jaime Norris MD Head CT 10/24/16 0000 Signed Impressions: Service Date/Time: Monday, October 24, 2016 16:56 - CONCLUSION: 1. No acute findings in the brain. 2. Right paranasal sinus disease with air-fluid levels. Anthony Lockhart MD Lower Extremity Ultrasound 10/23/16 0000 Signed Impressions: Service Date/Time: Sunday, October 23, 2016 13:47 - CONCLUSION: The study is negative for deep venous thrombosis bilateral lower extremity. Anthony Lockhart MD Objective Remarks GENERAL: with some sob/ on oxygen via N/C CARDIOVASCULAR: Regular rate and irregular rhythm without murmurs, gallops, or rubs. RESPIRATORY: diminished air entry bilaterally GASTROINTESTINAL: Abdomen soft, non-tender, nondistended. Normal, active bowel sounds MUSCULOSKELETAL: Extremities with bilateral pedal edema NEURO: Alert & Oriented x4 to person, place, time, situation. Moves all ext x4 Procedures intubation/ extubation Medications and IVs Current Medications Aspirin (Aspirin Chew) 162 mg ONCE ONCE PO Last administered on 10/23/16t 12: 21; Start 10/23/16 at 12:15; Stop 10/23/16 at 12:16; Status DC Sodium Chloride 2 ml 2 ml UNSCH PRN IVF FLUSH AFTER USING IV ACCESS; Start at 12:15 Sodium Chloride (NS 500 ml Inj) 500 ml @ 500 mls/hr ONCE ONCE IV Last administered on 10/23/16 12:21; Start 10/23/16 at 12:15; Stop 10/23/16 at 13:14 ; Status DC Morphine Sulfate (Morphine Inj) 4 mg ONCE ONCE SQ ; Start 10/23/16 at 13:45; Stop 10/23/16 at 13:48; Status DC Morphine Sulfate (Morphine Inj) 4 mg ONCE ONCE IV PUSH Last administered on 13:49; Start 10/23/16 at 14:00; Stop 10/23/16 at 14:01; Status DC Calcium Gluconate (Calcium Gluconate Inj) 1 gm ONCE ONCE SLOW IVP Last administered on 10/23/16 14:44; Start 10/23/16 at 14:45; Stop 10/23/16 at 14:46 ; Status DC Insulin Human Regular (NovoLIN R INJ) 10 units ONCE ONCE IV PUSH Last administered on 10/23/16 14:44; Start 10/23/16 at 14:45; Stop 10/23/16 at 14:46 ; Status DC Dextrose (D50w (Vial) Inj) 50 ml ONCE ONCE IV PUSH Last administered on 14:43; Start 10/23/16 at 14:45; Stop 10/23/16 at 14:46; Status DC Sodium Bicarbonate (Sodium Bicarbonate 8.4% Inj) 50 meq ONCE ONCE SLOW IVP Last administered on 10/23/16 14:44; Start 10/23/16 at 14:45; Stop 10/23/16 at 14:46; Status DC Sodium Polystyrene Sulfonate 15 gm 15 gm ONCE ONCE PO Last administered on 14:44; Start 10/23/16 at 14:45; Stop 10/23/16 at 14:46; Status DC Vancomycin HCl 1000 mg/Sodium Chloride 250 ml @ 250 mls/hr ONCE ONCE IV Last administered on 10/23/16 15:35; Start 10/23/16 at 15:30; Stop 10/23/16 at 16:29 ; Status DC Ceftriaxone Sodium/Sodium Chloride (Rocephin Inj/NS Inj) 100 ml @ 200 mls/hr ONCE ONCE IV ; Start 10/23/16 at 15:45; Stop 10/23/16 at 16:14; Status Cancel Dextrose (D50w (Vial) Inj) 25 ml UNSCH PRN IV PUSH HYPOGLYCEMIA-SEE COMMENTS; Start 10/23/16 at 15:45; Stop 10/26/16 at 09:05; Status DC Glucagon (Glucagon Inj) 1 mg UNSCH PRN OTHER HYPOGLYCEMIA-SEE COMMENTS; Start 10/23/16 at 15:45; Stop 10/26/16 at 09:05; Status DC Insulin Aspart (NovoLOG SUPPLEMENTAL SCALE) 1 ACHS SLIDING SCALE SQ Last administered on 10/23/16 16:36; Start 10/23/16 at 16:00; Stop 10/24/16 at 12:00 ; Status DC Nitroglycerin 0.4 mg 0.4 mg Q5M PRN SL X 3 doses for chest pain; Start at 16:00 Piperacillin Sod/ Tazobactam Sod (Zosyn 3.375 Gm Premix) 50 ml @ 100 mls/hr Q6H IV Last administered on 10/24/16 06:52; Start 10/23/16 at 18:00; Stop at 09:53; Status DC Guaifenesin/ Codeine Phosphate (Robitussin Ac 200-20 Mg/10 ml Liq) 10 ml Q4H PRN PO COUGH Last administered on 10/28/16 22:09; Start 10/23/16 at 16:00 Guaifenesin 600 mg 600 mg BID PO Last administered on 10/30/16 08:53; Start at 21:00 Sodium Chloride (NS 1000 ml Inj) 1,000 ml @ 100 mls/hr Q10H IV Last administered on 10/23/16 18:09; Start 10/23/16 at 15:48; Stop 10/24/16 at 07:06 ; Status DC Sodium Chloride (NS Flush) 2 ml UNSCH PRN IV FLUSH FLUSH AFTER USING IV ACCESS Last administered on 10/29/16 12:41; Start 10/23/16 at 16:00 Sodium Chloride (NS Flush) 2 ml BID IV FLUSH Last administered on 10/30/16 08: 54; Start 10/23/16 at 21:00 Ondansetron HCl (Zofran Inj) 4 mg Q6H PRN IVP NAUSEA OR VOMITING Last administered on 10/29/16 09:17; Start 10/23/16 at 16:00 Bisacodyl (Dulcolax Supp) 10 mg DAILY PRN RECTAL CONSTIPATION; Start 10/23/16 at 16:00 Heparin Sodium (Porcine) (Heparin Inj) 5,000 units Q12H SQ Last administered on 10/30/16 06:26; Start 10/23/16 at 18:00 Acetaminophen (Tylenol) 650 mg Q6H PRN PO PAIN SCALE 1 TO 2, T > 101; Start at 16:00 Acetaminophen/ Hydrocodone Bitart ([place] 5-325 Mg) 1 tab Q4H PRN PO PAIN SCALE 3 TO 5 Last administered on 10/28/16 14:37; Start 10/23/16 at 16:00 Acetaminophen/ Hydrocodone Bitart ([place] 7.5-325 Mg) 1 tab Q4H PRN PO PAIN SCALE 6 TO 10 Last administered on 10/29/16 09:18; Start 10/23/16 at 16:00 Morphine Sulfate (Morphine Inj) 1 mg Q3H PRN IV BREAKTHROUGH PAIN Last administered on 10/29/16 10:39; Start 10/23/16 at 16:00 Naloxone HCl (Narcan Inj) 0.4 mg UNSCH PRN IV SEE LABEL COMMENTS; Start at 16:00 Insulin Detemir (Levemir Inj) 37 units HS SQ Last administered on 10/23/16 22: 27; Start 10/23/16 at 21:00; Stop 10/24/16 at 08:37; Status DC Insulin Human Regular (NovoLIN R INJ) 6 units ONCE ONCE SQ ; Start 10/23/16 at 16:15; Stop 10/23/16 at 16:16; Status DC Hydralazine HCl (Apresoline Inj) 10 mg Q6H PRN IV SBP> OR = 180, DBP> OR = 100 ; Start 10/23/16 at 19:15 Clonidine (Catapres) 0.1 mg Q6H PRN PO SBP> OR = 180, DBP> OR = 100; Start at 19:15 Sodium Polystyrene Sulfonate (Kayexalate Liq) 15 gm QID PO Last administered on 10/24/16 13:43; Start 10/23/16 at 21:00; Stop 10/24/16 at 13:01; Status DC Insulin Human Regular (NovoLIN R INJ) 10 units ONCE ONCE IV PUSH Last administered on 10/23/16 19:15; Start 10/23/16 at 19:15; Stop 10/23/16 at 19:40 ; Status DC Dextrose (D50w (Vial) Inj) 50 ml ONCE ONCE IV PUSH Last administered on 20:09; Start 10/23/16 at 19:15; Stop 10/23/16 at 19:40; Status DC Calcium Gluconate (Calcium Gluconate Inj) 1 gm ONCE ONCE IV Last administered on 10/23/16 20:09; Start 10/23/16 at 19:15; Stop 10/23/16 at 19:41; Status DC Albuterol Sulfate (Albuterol Concentrated Neb) 10 mg ONCE ONCE INH Last administered on 10/23/16 21:55; Start 10/23/16 at 19:15; Stop 10/23/16 at 19:41 ; Status DC Insulin Human Regular (NovoLIN R INJ) 10 units ONCE ONCE IV PUSH Last administered on 10/24/16 05:17; Start 10/24/16 at 03:45; Stop 10/24/16 at 03:47 ; Status DC Dextrose (D50w (Vial) Inj) 50 ml ONCE ONCE IV PUSH Last administered on 05:18; Start 10/24/16 at 03:45; Stop 10/24/16 at 03:47; Status DC Calcium Gluconate (Calcium Gluconate Inj) 1 gm ONCE ONCE IV PUSH Last administered on 10/24/16 05:19; Start 10/24/16 at 03:45; Stop 10/24/16 at 03:47 ; Status DC Sodium Polystyrene Sulfonate (Kayexalate Enema) 30 gm ONCE ONCE RECTAL ; Start 10/24/16 at 03:45; Stop 10/24/16 at 03:46; Status Cancel Sodium Polystyrene Sulfonate (Kayexalate Liq) 30 gm ONCE ONCE RECTAL Last administered on 10/24/16 05:20; Start 10/24/16 at 05:00; Stop 10/24/16 at 05:01 ; Status DC Furosemide (Lasix Inj) 40 mg ONCE ONCE IV PUSH Last administered on 10/24/16 09:08; Start 10/24/16 at 07:15; Stop 10/24/16 at 07:29; Status DC Succinylcholine Chloride (Quelicin Inj) 200 mg STK-MED ONCE .ROUTE Last administered on 10/24/16 09:09; Start 10/24/16 at 07:37; Stop 10/24/16 at 07:38 ; Status DC Etomidate 20 mg 20 mg STK-MED ONCE .ROUTE Last administered on 10/24/16 09:08 ; Start 10/24/16 at 07:38; Stop 10/24/16 at 07:39; Status DC Propofol (Diprivan 1000 Mg/100ml Inj) 100 ml @ 0 mls/hr TITRATE IV Last administered on 10/27/16 06:31; Start 10/24/16 at 08:45; Stop 10/27/16 at 13:41 ; Status DC Insulin Human Regular (NovoLIN R INJ) 8 units ONCE ONCE IV PUSH Last administered on 10/24/16 09:37; Start 10/24/16 at 08:45; Stop 10/24/16 at 08:46 ; Status DC Dextrose (D50w (Syr) Inj) 50 ml ONCE ONCE IV Last administered on 10/24/16 09 :37; Start 10/24/16 at 08:45; Stop 10/24/16 at 08:46; Status DC Sodium Bicarbonate 50 meq 50 meq ONCE ONCE IV PUSH Last administered on 09:38; Start 10/24/16 at 08:45; Stop 10/24/16 at 08:46; Status DC Calcium Gluconate/ Sodium Chloride (Calcium Gluconate Inj/NS Inj) 110 ml @ 110 mls/hr ONCE ONCE IV Last administered on 10/24/16 09:09; Start 10/24/16 at 09 :00; Stop 10/24/16 at 09:59; Status DC Sodium Polystyrene Sulfonate 15 gm 15 gm ONCE ONCE PO ; Start 10/24/16 at 08:45 ; Stop 10/24/16 at 08:46; Status DC Piperacillin Sod/ Tazobactam Sod (Zosyn 2.25 Gm Premix) 50 ml @ 100 mls/hr Q6HR IV Last administered on 10/28/16 05:14; Start 10/24/16 at 12:00; Stop at 07:39; Status DC Insulin Aspart (NovoLOG SUPPLEMENTAL SCALE) 1 Q6H SQ Last administered on 05:21; Start 10/24/16 at 17:00; Stop 10/26/16 at 08:58; Status DC Albuterol/ Ipratropium (Duoneb Neb) 1 ampule Q6HR NEB NEB Last administered on 10/27/16 09:34; Start 10/24/16 at 13:00; Stop 10/27/16 at 13:49; Status DC Pantoprazole Sodium (Protonix Inj) 40 mg Q24H IV PUSH Last administered on 10/29 12:41; Start 10/24/16 at 13:00 Furosemide (Lasix Inj) 40 mg BID@09,18 IV PUSH Last administered on 10/25/16 08:49; Start 10/24/16 at 13:00; Stop 10/25/16 at 09:20; Status DC Miscellaneous Information Patient in critical care unit? Ass... [id number] .XX ; Start 10/24/16 at 19:30 Chlorhexidine Gluconate (Chlorhexidine 2% Cloth) 3 pack DAILY@04 TOPICAL Last administered on 10/29/16 04:00; Start 10/25/16 at 04:00; Stop 10/29/16 at 04:01 ; Status DC Chlorhexidine Gluconate (Chlorhexidine 2% Cloth) 3 pack UNSCH PRN TOPICAL HYGIENIC CARE; Start 10/24/16 at 19:30; Stop 10/29/16 at 19:18; Status DC Furosemide (Lasix Inj) 40 mg DAILY IV PUSH Last administered on 10/30/16 08:54 ; Start 10/26/16 at 09:00 Nicotine (Habitrol 7 Mg Patch.24 Hr) 1 patch DAILY T-DERMAL Last administered on 10/30/16 08:53; Start 10/25/16 at 16:45 Miscellaneous Information 1 DAILY T-DERMAL Last administered on 10/30/16 09:00 ; Start 10/26/16 at 09:00 Linezolid (Zyvox) 600 mg Q12HR PO Last administered on 4/25/17at 08:53; Start 10/26/16 at 09:00 Dextrose (D50w (Vial) Inj) 25 ml UNSCH PRN IV PUSH HYPOGLYCEMIA-SEE COMMENTS; Start 10/26/16 at 09:00 Glucagon (Glucagon Inj) 1 mg UNSCH PRN OTHER HYPOGLYCEMIA-SEE COMMENTS; Start 10/26/16 at 09:00 Insulin Human Regular (NovoLIN R SUPPLEMENTAL SCALE) 1 Q6H SQ ; Start 10/26/16 at 09:00; Stop 10/26/16 at 16:56; Status DC Insulin Human Regular (NovoLIN R SUPPLEMENTAL SCALE) 1 Q6H SQ Last administered on 10/29/16 04:43; Start 10/26/16 at 17:00 Albuterol/ Ipratropium (Duoneb Neb) 1 ampule Q4HR NEB NEB Last administered on 10/30/16 08:00; Start 10/27/16 at 16:00 Albuterol/ Ipratropium 1 ampule 1 ampule Q2HR NEB PRN NEB SHORTNESS OF BREATH; Start 10/27/16 at 13:45 Dexmedetomidine HCl/Sodium Chloride (Precedex Inj/NS 250 ml Inj) 250 ml @ 0 mls/ hr TITRATE IV Last administered on 10/28/16 05:33; Start 10/27/16 at 21:30; Stop 10/28/16 at 12:10; Status DC A/P Assessment and Plan A/P 1. VDRF/ MRSA pneumonia - Extubated 10/27 keep on oxygen to keep O2 sat > 90%- continue with neb treatment-BiPaP as needed. continue Zyvox. pulmonary consult appreciated. 2. Acute renal failure- renal function stable- renal sonogram with no hydronephrosis- nephrology following. 3. Hyperkalemia-resolved 4. Encephalopathy multifactorial likely secondary to CO2 narcosis and uremia - improving. 5. Mild elevation in troponin likely due to respiratory failure 6. Leukocytosis-has resolved. 7. Hypertension- BP fairly stable- will continue to monitor. 8. Hyperglycemia with underlying history of diabetes mellitus- continue accu- check with SSI. 9. Cellulitis of the lower extremities- continue Abx- wound care following. 10. Obstructive sleep apnea; BiPaP as needed. DVT/ GI prophylaxis with subq Heparin/ PPI. continue PT. Discharge Planning dc planning to SNF. case management consulted. Lety Machado MD Oct 30, 2016 11:22
[2016-10-30] MEDS: PANTOPRAZOLE SOD 40 MG DELAYED RELEASE TAB PO SCH (13:07)
--- NOTE | 2016-10-30 17:05 | HHI.NPPN ---
Subjective General Problems: Anemia, Edema Renal Failure: Chronic, Acute, Stage III History of Present Illness 71-year-old female with a past medical history of hypertension, diabetes mellitus, hyperlipidemia, chronic obstructive pulmonary disease, cerebrovascular accident, transferred here from [facility], came to the hospital because of left-sided weakness. I was called to see the patient because of elevated BUN and creatinine. The patient has a creatinine of 2.0 on presentation. She previously has a creatinine of 1.5-1.6 but this was two years ago. Additional Remarks Patient is alert, not in distress. Review of Systems General General Remarks Intubated and sedated. Objective Data Data 10/29/16 10/30/16 19:00 07:00 Intake Total 480 ml 350 ml Output Total 350 ml 450 ml Balance 130 ml -100 ml Intake Oral 480 ml 350 ml Output Urine Total 350 ml 450 ml Vital Signs Date Time Temp Pulse Resp B/P Pulse Ox O2 Delivery O2 Flow Rate FiO2 10/30/16 16:00 100 Nasal Cannula 4.00 10/30/16 16:00 100 10/30/16 16:00 98.2 104 19 113/56 100 10/30/16 14:00 97 10/30/16 12:00 99.3 95 16 117/56 95 10/30/16 12:00 95 Nasal Cannula 4.00 10/30/16 12:00 97 10/30/16 10:00 102 10/30/16 08:01 94 Nasal Cannula 4.00 10/30/16 08:00 94 Nasal Cannula 4.00 10/30/16 08:00 97 10/30/16 08:00 98.7 96 16 115/55 94 10/30/16 06:00 92 10/30/16 04:00 Bi-Pap 4.00 35 10/30/16 04:00 92 10/30/16 04:00 98.4 92 14 125/58 96 10/30/16 02:25 93 4.00 10/30/16 02:00 88 10/30/16 00:00 88 10/30/16 00:00 98.2 92 14 125/58 96 10/30/16 00:00 Bi-Pap 35 10/30/16 00:00 94 35 10/29/16 22:00 98 10/29/16 20:00 98.8 93 15 114/53 97 10/29/16 20:00 Bi-Pap 35 10/29/16 20:00 93 10/29/16 19:47 97 BiPAP 35 10/29/16 19:41 94 35 10/29/16 18:00 89 10/29/16 17:27 94 35 10/29/16 17:25 95 Bi-Pap 35 -: 10/29/16 0532 10/29/16 0532 Physical Exam General Appearance: No Acute Distress, Anxious Eyes Eye Exam: Pupils Equal Throat Throat Exam: Oral Mucosa [place] & Moist Neck Neck Exam: Neck Supple Pulmonary Resp Exam: No Distress, Rhonchi, Decreased Bases, Diminished Breath Sounds Cardiology CV Exam: Regular, Normal Sinus Rhythm Gastrointestinal/Abdomen GI Exam: Soft, Non-Tender, Bowel Sounds Present, Distended Extremeties Extremities Exam: Moderate Edema, Pitting Edema, Dependent Edema (Both legs has erythema and covered with dressing.) Neurologic Neuro Exam: Alert, Awake Assessment/Plan Assessment Summary: HIRAM/Acute Renal Failure, Fluid/Volume Overload, CKD Stage III Problem List: (1) Renal insufficiency (2) Leukocytosis (3) Encephalopathy (4) Diabetes mellitus (5) Acute worsening of stage 3 chronic kidney disease Plan Patient has good urine out put. On Lasix once a day. BP is stable, Continue Zosyn, Follow the urine out put and BMP. Possibly close to her baseline. Continue Lasix and antibiotics. Now new BMP, follow in AM. Problem Qualifiers (1) Diabetes mellitus: Bree Dill MD Oct 30, 2016 17:05
--- NOTE | 2016-10-30 19:03 | HHI.PR ---
Subjective Remarks 71 YOWF with COPD,RF, obesity Weaned top NC Daughter at , feeding her No fever Objective Vital Signs Vital Signs Date Time Temp Pulse Resp B/P Pulse Ox O2 Delivery O2 Flow Rate FiO2 10/30/16 18:00 101 10/30/16 16:00 100 Nasal Cannula 4.00 10/30/16 16:00 100 10/30/16 16:00 98.2 104 19 113/56 100 10/30/16 14:00 97 10/30/16 12:00 99.3 95 16 117/56 95 10/30/16 12:00 95 Nasal Cannula 4.00 10/30/16 12:00 97 10/30/16 10:00 102 10/30/16 08:01 94 Nasal Cannula 4.00 10/30/16 08:00 94 Nasal Cannula 4.00 10/30/16 08:00 97 10/30/16 08:00 98.7 96 16 115/55 94 10/30/16 06:00 92 10/30/16 04:00 Bi-Pap 4.00 35 10/30/16 04:00 92 10/30/16 04:00 98.4 92 14 125/58 96 10/30/16 02:25 93 4.00 10/30/16 02:00 88 10/30/16 00:00 88 10/30/16 00:00 98.2 92 14 125/58 96 10/30/16 00:00 Bi-Pap 35 10/30/16 00:00 94 35 10/29/16 22:00 98 10/29/16 20:00 98.8 93 15 114/53 97 10/29/16 20:00 Bi-Pap 35 10/29/16 20:00 93 10/29/16 19:47 97 BiPAP 35 10/29/16 19:41 94 35 I/O 10/29/16 10/29/16 10/29/16 10/30/16 10/30/16 10/30/16 07:00 15:00 23:00 07:00 15:00 23:00 Intake Total 200 ml 480 ml 150 ml 200 ml 360 ml Output Total 200 ml 350 ml 250 ml 200 ml 275 ml Balance 0 ml 130 ml -100 ml 0 ml 85 ml Intake Oral 200 ml 480 ml 150 ml 200 ml 360 ml Output Urine Total 200 ml 350 ml 250 ml 200 ml 275 ml Result Diagram: 10/29/1632 10/29/16531 Objective Remarks GENERAL: Obese female mild sob. SKIN: Warm and dry. HEAD: Normocephalic. EYES: No scleral icterus. No injection or drainage. NECK: Supple, trachea midline. No JVD or lymphadenopathy. CARDIOVASCULAR: Regular rate and rhythm without murmurs, gallops, or rubs. RESPIRATORY: Breath sounds equal bilaterally. No accessory muscle use. GASTROINTESTINAL: Abdomen soft, non-tender, nondistended. MUSCULOSKELETAL: No cyanosis, or edema. BACK: Nontender without obvious deformity. No CVA tenderness. A/P Assessment and Plan hypercapnoic RF COPD DM Nicotine use Obesity HTN PLAN: CPAP at night and prn Aerosol nebs Suplement 02 Ruma BS and Ang RANGEL Pt and her daughter Se Yusufkinga Monk MD Oct 30, 2016 19:03
[2016-10-31] VITALS (30 sets, daily range): BP systolic 115–143; BP diastolic 50–76; PULSE 91–124; RESP 18–22; TEMP 97.7–98.6; O2SAT 95–99
[2016-10-31] MEDS: RESP: ALBUTEROL 2.5 MG/IPRATROPIUM 0.5 MG NEB (SCH) NEB ×4 (04:07→15:30)
[2016-10-31] MEDS: INSULIN NovoLIN REGULAR SUPPLEMENTAL SCALE SQ SCH ×4 (05:06→23:00)
[2016-10-31] MEDS: HEPARIN SODIUM - SQ 10,000 UNITS/ML VIAL SQ SCH ×2 (05:06→16:51)
--- NOTE | 2016-10-31 08:34 | HHI.PR ---
Subjective Remarks in no acute distress. on BiPaP. no fever. d/w the RT. Objective Vitals Vital Signs Date Time Temp Pulse Resp B/P Pulse Ox O2 Delivery O2 Flow Rate FiO2 10/31/16 08:24 99 35 10/31/16 07:01 91 10/31/16 06:00 96 10/31/16 05:00 92 10/31/16 04:07 98 35 10/31/16 04:00 98.2 97 18 143/76 96 10/31/16 04:00 Nasal Cannula 3.00 35 10/31/16 04:00 96 10/31/16 03:00 92 10/31/16 02:00 98 10/31/16 01:03 98 35 10/31/16 01:00 96 10/31/16 00:00 98.1 98 18 115/50 98 10/31/16 00:00 Nasal Cannula 3.00 35 10/31/16 00:00 96 10/30/16 23:00 98 10/30/16 22:00 94 10/30/16 21:50 95 35 10/30/16 21:00 104 10/30/16 20:00 107 10/30/16 20:00 Nasal Cannula 3.00 35 10/30/16 20:00 98.5 102 18 142/41 94 10/30/16 19:55 Nasal Cannula 3.00 10/30/16 18:00 101 10/30/16 16:00 100 Nasal Cannula 4.00 10/30/16 16:00 100 10/30/16 16:00 98.2 104 19 113/56 100 10/30/16 14:00 97 10/30/16 12:00 99.3 95 16 117/56 95 10/30/16 12:00 95 Nasal Cannula 4.00 10/30/16 12:00 97 10/30/16 10:00 102 I/O 10/30/16 10/30/16 10/30/16 10/31/16 10/31/16 10/31/16 07:00 15:00 23:00 07:00 15:00 23:00 Intake Total 200 ml 360 ml Output Total 200 ml 275 ml 700 ml Balance 0 ml 85 ml -700 ml Intake Oral 200 ml 360 ml Output Urine Total 200 ml 275 ml 700 ml Result Diagram: 10/29/16 0532 10/29/1632 Imaging Last Impressions Chest X-Ray 10/27/16 0000 Signed Impressions: Service Date/Time: Thursday, October 27, 2016 12:27 - CONCLUSION: 1. ET tube in a somewhat low position approximately 1.6 cm above the k[place]. This could be pulled back to a better position by pulling it back 1 to 2 cm. 2. Suspected atelectasis at the right lung base. King Brown MD Renal Ultrasound 10/25/16 0000 Signed Impressions: Service Date/Time: October 10:11 - CONCLUSION: 1. Lower pole right renal cyst measuring 4.2 x 3.3 x 4.6 cm. 2. No hydronephrosis, solid mass or calcified calculus. 3. Poor visualization of the bladder due to nondistention. Jaime Norris MD Head CT 10/24/16 0000 Signed Impressions: Service Date/Time: Monday, October 24, 2016 16:56 - CONCLUSION: 1. No acute findings in the brain. 2. Right paranasal sinus disease with air-fluid levels. Anthony Lockhart MD Lower Extremity Ultrasound 10/23/16 0000 Signed Impressions: Service Date/Time: Sunday, October 23, 2016 13:47 - CONCLUSION: The study is negative for deep venous thrombosis bilateral lower extremity. Anthony Lockhart MD Objective Remarks GENERAL: with some sob/ on oxygen via N/C CARDIOVASCULAR: Regular rate and irregular rhythm without murmurs, gallops, or rubs. RESPIRATORY: diminished air entry bilaterally GASTROINTESTINAL: Abdomen soft, non-tender, nondistended. Normal, active bowel sounds MUSCULOSKELETAL: Extremities with bilateral pedal edema NEURO: Alert & Oriented x4 to person, place, time, situation. Moves all ext x4 Procedures intubation/ extubation Medications and IVs Current Medications Aspirin (Aspirin Chew) 162 mg ONCE ONCE PO Last administered on 10/23/16 12: 21; Start 10/23/16 at 12:15; Stop 10/23/16 at 12:16; Status DC Sodium Chloride 2 ml 2 ml UNSCH PRN IVF FLUSH AFTER USING IV ACCESS; Start at 12:15 Sodium Chloride (NS 500 ml Inj) 500 ml @ 500 mls/hr ONCE ONCE IV Last administered on 10/23/16 12:21; Start 10/23/16 at 12:15; Stop 10/23/16 at 13:14 ; Status DC Morphine Sulfate (Morphine Inj) 4 mg ONCE ONCE SQ ; Start 10/23/16 at 13:45; Stop 10/23/16 at 13:48; Status DC Morphine Sulfate (Morphine Inj) 4 mg ONCE ONCE IV PUSH Last administered on 13:49; Start 10/23/16 at 14:00; Stop 10/23/16 at 14:01; Status DC Calcium Gluconate (Calcium Gluconate Inj) 1 gm ONCE ONCE SLOW IVP Last administered on 10/23/16 14:44; Start 10/23/16 at 14:45; Stop 10/23/16 at 14:46 ; Status DC Insulin Human Regular (NovoLIN R INJ) 10 units ONCE ONCE IV PUSH Last administered on 10/23/16 14:44; Start 10/23/16 at 14:45; Stop 10/23/16 at 14:46 ; Status DC Dextrose (D50w (Vial) Inj) 50 ml ONCE ONCE IV PUSH Last administered on 14:43; Start 10/23/16 at 14:45; Stop 10/23/16 at 14:46; Status DC Sodium Bicarbonate (Sodium Bicarbonate 8.4% Inj) 50 meq ONCE ONCE SLOW IVP Last administered on 10/23/16 14:44; Start 10/23/16 at 14:45; Stop 10/23/16 at 14:46; Status DC Sodium Polystyrene Sulfonate 15 gm 15 gm ONCE ONCE PO Last administered on 14:44; Start 10/23/16 at 14:45; Stop 10/23/16 at 14:46; Status DC Vancomycin HCl 1000 mg/Sodium Chloride 250 ml @ 250 mls/hr ONCE ONCE IV Last administered on 10/23/16 15:35; Start 10/23/16 at 15:30; Stop 10/23/16 at 16:29 ; Status DC Ceftriaxone Sodium/Sodium Chloride (Rocephin Inj/NS Inj) 100 ml @ 200 mls/hr ONCE ONCE IV ; Start 10/23/16 at 15:45; Stop 10/23/16 at 16:14; Status Cancel Dextrose (D50w (Vial) Inj) 25 ml UNSCH PRN IV PUSH HYPOGLYCEMIA-SEE COMMENTS; Start 10/23/16 at 15:45; Stop 10/26/16 at 09:05; Status DC Glucagon (Glucagon Inj) 1 mg UNSCH PRN OTHER HYPOGLYCEMIA-SEE COMMENTS; Start 10/23/16 at 15:45; Stop 10/26/16 at 09:05; Status DC Insulin Aspart (NovoLOG SUPPLEMENTAL SCALE) 1 ACHS SLIDING SCALE SQ Last administered on 10/23/16 16:36; Start 10/23/16 at 16:00; Stop 10/24/16 at 12:00 ; Status DC Nitroglycerin 0.4 mg 0.4 mg Q5M PRN SL X 3 doses for chest pain; Start at 16:00 Piperacillin Sod/ Tazobactam Sod (Zosyn 3.375 Gm Premix) 50 ml @ 100 mls/hr Q6H IV Last administered on 10/24/16 06:52; Start 10/23/16 at 18:00; Stop at 09:53; Status DC Guaifenesin/ Codeine Phosphate (Robitussin Ac 200-20 Mg/10 ml Liq) 10 ml Q4H PRN PO COUGH Last administered on 10/28/16 22:09; Start 10/23/16 at 16:00 Guaifenesin 600 mg 600 mg BID PO Last administered on 10/30/16 08:53; Start at 21:00 Sodium Chloride (NS 1000 ml Inj) 1,000 ml @ 100 mls/hr Q10H IV Last administered on 10/23/16 18:09; Start 10/23/16 at 15:48; Stop 10/24/16 at 07:06 ; Status DC Sodium Chloride (NS Flush) 2 ml UNSCH PRN IV FLUSH FLUSH AFTER USING IV ACCESS Last administered on 10/29/16 12:41; Start 10/23/16 at 16:00 Sodium Chloride (NS Flush) 2 ml BID IV FLUSH Last administered on 10/30/16 20: 45; Start 10/23/16 at 21:00 Ondansetron HCl (Zofran Inj) 4 mg Q6H PRN IVP NAUSEA OR VOMITING Last administered on 10/29/16 09:17; Start 10/23/16 at 16:00 Bisacodyl (Dulcolax Supp) 10 mg DAILY PRN RECTAL CONSTIPATION; Start 10/23/16 at 16:00 Heparin Sodium (Porcine) (Heparin Inj) 5,000 units Q12H SQ Last administered on 10/31/16 05:06; Start 10/23/16 at 18:00 Acetaminophen (Tylenol) 650 mg Q6H PRN PO PAIN SCALE 1 TO 2, T > 101; Start at 16:00 Acetaminophen/ Hydrocodone Bitart ([place] 5-325 Mg) 1 tab Q4H PRN PO PAIN SCALE 3 TO 5 Last administered on 10/28/16 14:37; Start 10/23/16 at 16:00 Acetaminophen/ Hydrocodone Bitart ([place] 7.5-325 Mg) 1 tab Q4H PRN PO PAIN SCALE 6 TO 10 Last administered on 10/29/16 09:18; Start 10/23/16 at 16:00 Morphine Sulfate (Morphine Inj) 1 mg Q3H PRN IV BREAKTHROUGH PAIN Last administered on 10/29/16 10:39; Start 10/23/16 at 16:00; Stop 10/30/16 at 11:21 ; Status DC Naloxone HCl (Narcan Inj) 0.4 mg UNSCH PRN IV SEE LABEL COMMENTS; Start at 16:00 Insulin Detemir (Levemir Inj) 37 units HS SQ Last administered on 10/23/16 22: 27; Start 10/23/16 at 21:00; Stop 10/24/16 at 08:37; Status DC Insulin Human Regular (NovoLIN R INJ) 6 units ONCE ONCE SQ ; Start 10/23/16 at 16:15; Stop 10/23/16 at 16:16; Status DC Hydralazine HCl (Apresoline Inj) 10 mg Q6H PRN IV SBP> OR = 180, DBP> OR = 100 ; Start 10/23/16 at 19:15 Clonidine (Catapres) 0.1 mg Q6H PRN PO SBP> OR = 180, DBP> OR = 100; Start at 19:15 Sodium Polystyrene Sulfonate (Kayexalate Liq) 15 gm QID PO Last administered on 10/24/16 13:43; Start 10/23/16 at 21:00; Stop 10/24/16 at 13:01; Status DC Insulin Human Regular (NovoLIN R INJ) 10 units ONCE ONCE IV PUSH Last administered on 10/23/16 19:15; Start 10/23/16 at 19:15; Stop 10/23/16 at 19:40 ; Status DC Dextrose (D50w (Vial) Inj) 50 ml ONCE ONCE IV PUSH Last administered on 20:09; Start 10/23/16 at 19:15; Stop 10/23/16 at 19:40; Status DC Calcium Gluconate (Calcium Gluconate Inj) 1 gm ONCE ONCE IV Last administered on 10/23/16 20:09; Start 10/23/16 at 19:15; Stop 10/23/16 at 19:41; Status DC Albuterol Sulfate (Albuterol Concentrated Neb) 10 mg ONCE ONCE INH Last administered on 10/23/16 21:55; Start 10/23/16 at 19:15; Stop 10/23/16 at 19:41 ; Status DC Insulin Human Regular (NovoLIN R INJ) 10 units ONCE ONCE IV PUSH Last administered on 10/24/16 05:17; Start 10/24/16 at 03:45; Stop 10/24/16 at 03:47 ; Status DC Dextrose (D50w (Vial) Inj) 50 ml ONCE ONCE IV PUSH Last administered on 05:18; Start 10/24/16 at 03:45; Stop 10/24/16 at 03:47; Status DC Calcium Gluconate (Calcium Gluconate Inj) 1 gm ONCE ONCE IV PUSH Last administered on 10/24/16 05:19; Start 10/24/16 at 03:45; Stop 10/24/16 at 03:47 ; Status DC Sodium Polystyrene Sulfonate (Kayexalate Enema) 30 gm ONCE ONCE RECTAL ; Start 10/24/16 at 03:45; Stop 10/24/16 at 03:46; Status Cancel Sodium Polystyrene Sulfonate (Kayexalate Liq) 30 gm ONCE ONCE RECTAL Last administered on 10/24/16 05:20; Start 10/24/16 at 05:00; Stop 10/24/16 at 05:01 ; Status DC Furosemide (Lasix Inj) 40 mg ONCE ONCE IV PUSH Last administered on 10/24/16 09:08; Start 10/24/16 at 07:15; Stop 10/24/16 at 07:29; Status DC Succinylcholine Chloride (Quelicin Inj) 200 mg STK-MED ONCE .ROUTE Last administered on 10/24/16 09:09; Start 10/24/16 at 07:37; Stop 10/24/16 at 07:38 ; Status DC Etomidate 20 mg 20 mg STK-MED ONCE .ROUTE Last administered on 10/24/16 09:08 ; Start 10/24/16 at 07:38; Stop 10/24/16 at 07:39; Status DC Propofol (Diprivan 1000 Mg/100ml Inj) 100 ml @ 0 mls/hr TITRATE IV Last administered on 10/27/16 06:31; Start 10/24/16 at 08:45; Stop 10/27/16 at 13:41 ; Status DC Insulin Human Regular (NovoLIN R INJ) 8 units ONCE ONCE IV PUSH Last administered on 10/24/16 09:37; Start 10/24/16 at 08:45; Stop 10/24/16 at 08:46 ; Status DC Dextrose (D50w (Syr) Inj) 50 ml ONCE ONCE IV Last administered on 10/24/16 09 :37; Start 10/24/16 at 08:45; Stop 10/24/16 at 08:46; Status DC Sodium Bicarbonate 50 meq 50 meq ONCE ONCE IV PUSH Last administered on 09:38; Start 10/24/16 at 08:45; Stop 10/24/16 at 08:46; Status DC Calcium Gluconate/ Sodium Chloride (Calcium Gluconate Inj/NS Inj) 110 ml @ 110 mls/hr ONCE ONCE IV Last administered on 10/24/16 09:09; Start 10/24/16 at 09 :00; Stop 10/24/16 at 09:59; Status DC Sodium Polystyrene Sulfonate 15 gm 15 gm ONCE ONCE PO ; Start 10/24/16 at 08:45 ; Stop 10/24/16 at 08:46; Status DC Piperacillin Sod/ Tazobactam Sod (Zosyn 2.25 Gm Premix) 50 ml @ 100 mls/hr Q6HR IV Last administered on 10/28/16 05:14; Start 10/24/16 at 12:00; Stop at 07:39; Status DC Insulin Aspart (NovoLOG SUPPLEMENTAL SCALE) 1 Q6H SQ Last administered on 05:21; Start 10/24/16 at 17:00; Stop 10/26/16 at 08:58; Status DC Albuterol/ Ipratropium (Duoneb Neb) 1 ampule Q6HR NEB NEB Last administered on 10/27/16 09:34; Start 10/24/16 at 13:00; Stop 10/27/16 at 13:49; Status DC Pantoprazole Sodium (Protonix Inj) 40 mg Q24H IV PUSH Last administered on 10/29 12:41; Start 10/24/16 at 13:00; Stop 10/30/16 at 11:27; Status DC Furosemide (Lasix Inj) 40 mg BID@09,18 IV PUSH Last administered on 10/25/16 08:49; Start 10/24/16 at 13:00; Stop 10/25/16 at 09:20; Status DC Miscellaneous Information Patient in critical care unit? Ass... [id number] .XX ; Start 10/24/16 at 19:30 Chlorhexidine Gluconate (Chlorhexidine 2% Cloth) 3 pack DAILY@04 TOPICAL Last administered on 10/29/16 04:00; Start 10/25/16 at 04:00; Stop 10/29/16 at 04:01 ; Status DC Chlorhexidine Gluconate (Chlorhexidine 2% Cloth) 3 pack UNSCH PRN TOPICAL HYGIENIC CARE; Start 10/24/16 at 19:30; Stop 10/29/16 at 19:18; Status DC Furosemide (Lasix Inj) 40 mg DAILY IV PUSH Last administered on 10/30/16 08:54 ; Start 10/26/16 at 09:00 Nicotine (Habitrol 7 Mg Patch.24 Hr) 1 patch DAILY T-DERMAL Last administered on 10/30/16 08:53; Start 10/25/16 at 16:45 Miscellaneous Information 1 DAILY T-DERMAL Last administered on 10/30/16 09:00 ; Start 10/26/16 at 09:00 Linezolid (Zyvox) 600 mg Q12HR PO Last administered on 10/30/16 08:53; Start 10/26/16 at 09:00 Dextrose (D50w (Vial) Inj) 25 ml UNSCH PRN IV PUSH HYPOGLYCEMIA-SEE COMMENTS; Start 10/26/16 at 09:00 Glucagon (Glucagon Inj) 1 mg UNSCH PRN OTHER HYPOGLYCEMIA-SEE COMMENTS; Start 10/26/16 at 09:00 Insulin Human Regular (NovoLIN R SUPPLEMENTAL SCALE) 1 Q6H SQ ; Start 10/26/16 at 09:00; Stop 10/26/16 at 16:56; Status DC Insulin Human Regular (NovoLIN R SUPPLEMENTAL SCALE) 1 Q6H SQ Last administered on 10/31/16 05:06; Start 10/26/16 at 17:00 Albuterol/ Ipratropium (Duoneb Neb) 1 ampule Q4HR NEB NEB Last administered on 10/31/16 04:07; Start 10/27/16 at 16:00 Albuterol/ Ipratropium 1 ampule 1 ampule Q2HR NEB PRN NEB SHORTNESS OF BREATH; Start 10/27/16 at 13:45 Dexmedetomidine HCl/Sodium Chloride (Precedex Inj/NS 250 ml Inj) 250 ml @ 0 mls/ hr TITRATE IV Last administered on 10/28/16 05:33; Start 10/27/16 at 21:30; Stop 10/28/16 at 12:10; Status DC Hydromorphone HCl (Dilaudid Pf Inj) 0.5 mg Q3HR PRN IV PUSH BREAKTHROUGH PAIN; Start 10/30/16 at 11:15 Pantoprazole Sodium (Protonix) 40 mg Q24H PO Last administered on 10/30/16 13: 07; Start 10/30/16 at 13:00 A/P Assessment and Plan A/P 1. VDRF/ MRSA pneumonia - Extubated 10/27 keep on oxygen to keep O2 sat > 90%- continue with neb treatment-BiPaP as needed. continue Zyvox. pulmonary following. 2. Acute renal failure- renal function stable- renal sonogram with no hydronephrosis- nephrology following. 3. Hyperkalemia-resolved 4. Encephalopathy multifactorial likely secondary to CO2 narcosis and uremia - improving. 5. Mild elevation in troponin likely due to respiratory failure 6. Leukocytosis-has resolved. 7. Hypertension- BP fairly stable- will continue to monitor. 8. Hyperglycemia with underlying history of diabetes mellitus- continue accu- check with SSI. 9. Cellulitis of the lower extremities- continue Abx- wound care following. 10. Obstructive sleep apnea; BiPaP as needed. DVT/ GI prophylaxis with subq Heparin/ PPI. continue PT. Discharge Planning dc planning to SNF. case management consulted. Lety Machado MD Oct 31, 2016 08:34
[2016-10-31] MEDS: LINEZOLID 600 MG TAB PO SCH ×2 (09:00→20:41)
[2016-10-31] MEDS: REMOVE OLD PATCH T-DERMAL SCH (09:00)
[2016-10-31] MEDS: guaiFENesin E.R. 600 MG TAB PO SCH ×2 (09:12→20:41)
[2016-10-31] MEDS: NICOTINE 7 MG/24 HR PATCH T-DERMAL SCH (09:13)
[2016-10-31] MEDS: SODIUM CHLORIDE 0.9% FLUSH 10 ML FLUSH IV FLUSH SCH ×2 (09:13→20:41)
[2016-10-31] MEDS: FUROSEMIDE 40 MG/4 ML VIAL IV PUSH SCH (09:13)
[2016-10-31] MEDS: PANTOPRAZOLE SOD 40 MG DELAYED RELEASE TAB PO SCH (16:17)
--- NOTE | 2016-10-31 17:08 | HHI.NPPN ---
Subjective General Problems: Anemia, Edema Renal Failure: Chronic, Acute, Stage III History of Present Illness 71-year-old female with a past medical history of hypertension, diabetes mellitus, hyperlipidemia, chronic obstructive pulmonary disease, cerebrovascular accident, transferred here from [facility], came to the hospital because of left-sided weakness. I was called to see the patient because of elevated BUN and creatinine. The patient has a creatinine of 2.0 on presentation. She previously has a creatinine of 1.5-1.6 but this was two years ago. Additional Remarks Patient is alert, not fully oriented, not in distress. Review of Systems General General Remarks Intubated and sedated. Objective Data Data 10/30/16 10/31/16 19:00 07:00 Intake Total 360 ml Output Total 275 ml 700 ml Balance 85 ml -700 ml Intake Oral 360 ml Output Urine Total 275 ml 700 ml Vital Signs Date Time Temp Pulse Resp B/P Pulse Ox O2 Delivery O2 Flow Rate FiO2 10/31/16 12:01 102 10/31/16 11:30 99 Nasal Cannula 3.00 10/31/16 11:30 98.1 103 20 138/68 99 10/31/16 11:00 102 10/31/16 10:01 102 10/31/16 09:00 104 10/31/16 08:30 97 Nasal Cannula 3.00 10/31/16 08:30 98.1 101 22 131/66 97 10/31/16 08:24 99 35 10/31/16 08:00 98 10/31/16 07:01 91 10/31/16 06:00 96 10/31/16 05:00 92 10/31/16 04:07 98 35 10/31/16 04:00 98.2 97 18 143/76 96 10/31/16 04:00 Nasal Cannula 3.00 35 10/31/16 04:00 96 10/31/16 03:00 92 10/31/16 02:00 98 10/31/16 01:03 98 35 10/31/16 01:00 96 10/31/16 00:00 98.1 98 18 115/50 98 10/31/16 00:00 Nasal Cannula 3.00 35 10/31/16 00:00 96 10/30/16 23:00 98 10/30/16 22:00 94 10/30/16 21:50 95 35 10/30/16 21:00 104 10/30/16 20:00 107 10/30/16 20:00 Nasal Cannula 3.00 35 10/30/16 20:00 98.5 102 18 142/41 94 10/30/16 19:55 Nasal Cannula 3.00 10/30/16 18:00 101 -: 10/29/16 0532 10/29/16 0532 Physical Exam General Appearance: No Acute Distress, Anxious Eyes Eye Exam: Pupils Equal Throat Throat Exam: Oral Mucosa [place] & Moist Neck Neck Exam: Neck Supple Pulmonary Resp Exam: No Distress, Rhonchi, Decreased Bases, Diminished Breath Sounds Cardiology CV Exam: Regular, Normal Sinus Rhythm Gastrointestinal/Abdomen GI Exam: Soft, Non-Tender, Bowel Sounds Present, Distended Extremeties Extremities Exam: Moderate Edema, Pitting Edema, Dependent Edema (Both legs has erythema and covered with dressing.) Neurologic Neuro Exam: Alert, Awake Assessment/Plan Assessment Summary: HIRAM/Acute Renal Failure, Fluid/Volume Overload, CKD Stage III Problem List: (1) Renal insufficiency (2) Leukocytosis (3) Encephalopathy (4) Diabetes mellitus (5) Acute worsening of stage 3 chronic kidney disease Plan Patient has good urine out put. On Lasix once a day. BP is stable, Continue Zosyn, Creatinine remain 2.7-2.8. Urine out put is good. Edema is better. Continue Lasix and follow the BMP. Problem Qualifiers (1) Diabetes mellitus: Bree Dill MD Oct 31, 2016 17:08
--- NOTE | 2016-10-31 19:41 | HHI.PR ---
Subjective Remarks 71 YOWF with COPD,RF, obesity Weaned top NC No fever has cough, occ sputum Objective Vital Signs Vital Signs Date Time Temp Pulse Resp B/P Pulse Ox O2 Delivery O2 Flow Rate FiO2 10/31/16 18:01 124 10/31/16 17:00 116 10/31/16 16:00 108 10/31/16 15:15 98 Nasal Cannula 3.00 10/31/16 15:15 97.7 110 20 137/60 98 10/31/16 15:00 106 10/31/16 14:00 106 10/31/16 13:00 112 10/31/16 12:01 102 10/31/16 11:30 99 Nasal Cannula 3.00 10/31/16 11:30 98.1 103 20 138/68 99 10/31/16 11:00 102 10/31/16 10:01 102 10/31/16 09:00 104 10/31/16 08:30 97 Nasal Cannula 3.00 10/31/16 08:30 98.1 101 22 131/66 97 10/31/16 08:24 99 35 10/31/16 08:00 98 10/31/16 07:01 91 10/31/16 06:00 96 10/31/16 05:00 92 10/31/16 04:07 98 35 10/31/16 04:00 98.2 97 18 143/76 96 10/31/16 04:00 Nasal Cannula 3.00 35 10/31/16 04:00 96 10/31/16 03:00 92 10/31/16 02:00 98 10/31/16 01:03 98 35 10/31/16 01:00 96 10/31/16 00:00 98.1 98 18 115/50 98 10/31/16 00:00 Nasal Cannula 3.00 35 10/31/16 00:00 96 10/30/16 23:00 98 10/30/16 22:00 94 10/30/16 21:50 95 35 10/30/16 21:00 104 10/30/16 20:00 107 10/30/16 20:00 Nasal Cannula 3.00 35 10/30/16 20:00 98.5 102 18 142/41 94 10/30/16 19:55 Nasal Cannula 3.00 I/O 4/25/17 410/30/16 10/31/16 10/31/16 10/31/16 07:00 15:00 23:00 07:00 15:00 23:00 Intake Total 200 ml 360 ml 1440 ml Output Total 200 ml 275 ml 700 ml 1150 ml Balance 0 ml 85 ml -700 ml 290 ml Intake Oral 200 ml 360 ml 1440 ml Output Urine Total 200 ml 275 ml 700 ml 1150 ml # Bowel Movements 2 Result Diagram: 10/29/1653110/29/16531 Objective Remarks GENERAL: Obese female mild sob. SKIN: Warm and dry. HEAD: Normocephalic. EYES: No scleral icterus. No injection or drainage. NECK: Supple, trachea midline. No JVD or lymphadenopathy. CARDIOVASCULAR: Regular rate and rhythm without murmurs, gallops, or rubs. RESPIRATORY: Breath sounds equal bilaterally. No accessory muscle use. GASTROINTESTINAL: Abdomen soft, non-tender, nondistended. MUSCULOSKELETAL: No cyanosis, or edema. BACK: Nontender without obvious deformity. No CVA tenderness. A/P Assessment and Plan hypercapnoic RF COPD DM Nicotine use Obesity HTN PLAN: CPAP at night and prn Aerosol nebs Suplement 02 Monitor BS and Pedro Loera MD Oct 31, 2016 19:41
[2016-11-01] VITALS (26 sets, daily range): BP systolic 89–142; BP diastolic 42–70; PULSE 76–120; RESP 16–20; TEMP 97.6–98.7; O2SAT 95–100
[2016-11-01] MEDS: INSULIN NovoLIN REGULAR SUPPLEMENTAL SCALE SQ SCH ×4 (04:41→23:55)
[2016-11-01] MEDS: HEPARIN SODIUM - SQ 10,000 UNITS/ML VIAL SQ SCH ×2 (04:42→17:43)
[2016-11-01] MEDS: HYDROmorphone HCL PF 1 MG/ML VIAL IV PUSH PRN (04:55)
[2016-11-01] MEDS: ONDANSETRON HCL 4 MG/2 ML VIAL IVP PRN (04:56)
[2016-11-01 06:43] LABS: BICARBONATE 30.5 MEQ/L (21.0-32.0); POTASSIUM 3.6 MEQ/L (3.5-5.1)
[2016-11-01] MEDS: LINEZOLID 600 MG TAB PO SCH ×2 (08:54→21:26)
[2016-11-01] MEDS: FUROSEMIDE 40 MG/4 ML VIAL IV PUSH SCH (08:54)
[2016-11-01] MEDS: guaiFENesin E.R. 600 MG TAB PO SCH ×2 (08:54→21:26)
[2016-11-01] MEDS: NICOTINE 7 MG/24 HR PATCH T-DERMAL SCH (08:55)
[2016-11-01] MEDS: REMOVE OLD PATCH T-DERMAL SCH (08:55)
[2016-11-01] MEDS: SODIUM CHLORIDE 0.9% FLUSH 10 ML FLUSH IV FLUSH SCH ×2 (08:56→20:36)
--- NOTE | 2016-11-01 09:45 | HHI.PR ---
Subjective Remarks somewhat lethargic today. opens the eyes to calling her name. no fever. d/w the RN. Objective Vitals Vital Signs Date Time Temp Pulse Resp B/P Pulse Ox O2 Delivery O2 Flow Rate FiO2 11/01/16 09:13 97 Nasal Cannula 2.00 11/01/16 09:00 106 11/01/16 08:00 104 11/01/16 07:00 97 Nasal Cannula 3.00 11/01/16 07:00 107 11/01/16 07:00 97.6 109 18 105/49 97 11/01/16 06:00 112 11/01/16 05:00 104 11/01/16 04:00 110 11/01/16 04:00 97.7 102 18 119/56 99 11/01/16 04:00 Nasal Cannula 3.00 11/01/16 03:00 98 11/01/16 02:00 98 11/01/16 01:00 106 11/01/16 00:00 97.6 101 18 111/42 97 11/01/16 00:00 107 11/01/16 00:00 Nasal Cannula 3.00 10/31/16 23:00 100 10/31/16 22:00 102 10/31/16 21:00 100 10/31/16 20:06 95 Nasal Cannula 3.00 10/31/16 20:00 Nasal Cannula 3.00 10/31/16 20:00 107 10/31/16 20:00 98.6 109 18 135/62 96 10/31/16 18:01 124 10/31/16 17:00 116 10/31/16 16:00 108 10/31/16 15:15 98 Nasal Cannula 3.00 10/31/16 15:15 97.7 110 20 137/60 98 10/31/16 15:00 106 10/31/16 14:00 106 10/31/16 13:00 112 10/31/16 12:01 102 10/31/16 11:30 99 Nasal Cannula 3.00 10/31/16 11:30 98.1 103 20 138/68 99 10/31/16 11:00 102 10/31/16 10:01 102 I/O 10/31/16 10/31/16 10/31/16 11/01/16 11/01/16 11/01/16 07:00 15:00 23:00 07:00 15:00 23:00 Intake Total 1440 ml Output Total 700 ml 1150 ml 900 ml Balance -700 ml 290 ml -900 ml Intake Oral 1440 ml Output Urine Total 700 ml 1150 ml 900 ml # Bowel Movements 2 Result Diagram: 10/29/16 0532 11/01/16 0602 Imaging Last Impressions Chest X-Ray 10/27/16 0000 Signed Impressions: Service Date/Time: Thursday, October 27, 2016 12:27 - CONCLUSION: 1. ET tube in a somewhat low position approximately 1.6 cm above the kimberlyn. This could be pulled back to a better position by pulling it back 1 to 2 cm. 2. Suspected atelectasis at the right lung base. King Brown MD Renal Ultrasound 10/25/16 0000 Signed Impressions: Service Date/Time: October 10:11 - CONCLUSION: 1. Lower pole right renal cyst measuring 4.2 x 3.3 x 4.6 cm. 2. No hydronephrosis, solid mass or calcified calculus. 3. Poor visualization of the bladder due to nondistention. Jaime Norris MD Head CT 10/24/16 0000 Signed Impressions: Service Date/Time: Monday, October 24, 2016 16:56 - CONCLUSION: 1. No acute findings in the brain. 2. Right paranasal sinus disease with air-fluid levels. Anthony Lockhart MD Lower Extremity Ultrasound 10/23/16 0000 Signed Impressions: Service Date/Time: Sunday, October 23, 2016 13:47 - CONCLUSION: The study is negative for deep venous thrombosis bilateral lower extremity. Anthony Lockhart MD Objective Remarks GENERAL: with some sob. CARDIOVASCULAR: Regular rate and irregular rhythm without murmurs, gallops, or rubs. RESPIRATORY: diminished air entry bilaterally GASTROINTESTINAL: Abdomen soft, non-tender, nondistended. Normal, active bowel sounds MUSCULOSKELETAL: Extremities with bilateral pedal edema NEURO: somewhat lethargic today- opens the eyes to calling her name. Procedures intubation/ extubation Medications and IVs Current Medications Aspirin (Aspirin Chew) 162 mg ONCE ONCE PO Last administered on 10/23/16t 12: 21; Start 10/23/16 at 12:15; Stop 10/23/16 at 12:16; Status DC Sodium Chloride 2 ml 2 ml UNSCH PRN IVF FLUSH AFTER USING IV ACCESS; Start at 12:15 Sodium Chloride (NS 500 ml Inj) 500 ml @ 500 mls/hr ONCE ONCE IV Last administered on 10/23/16 12:21; Start 10/23/16 at 12:15; Stop 10/23/16 at 13:14 ; Status DC Morphine Sulfate (Morphine Inj) 4 mg ONCE ONCE SQ ; Start 10/23/16 at 13:45; Stop 10/23/16 at 13:48; Status DC Morphine Sulfate (Morphine Inj) 4 mg ONCE ONCE IV PUSH Last administered on 13:49; Start 10/23/16 at 14:00; Stop 10/23/16 at 14:01; Status DC Calcium Gluconate (Calcium Gluconate Inj) 1 gm ONCE ONCE SLOW IVP Last administered on 10/23/16 14:44; Start 10/23/16 at 14:45; Stop 10/23/16 at 14:46 ; Status DC Insulin Human Regular (NovoLIN R INJ) 10 units ONCE ONCE IV PUSH Last administered on 10/23/16 14:44; Start 10/23/16 at 14:45; Stop 10/23/16 at 14:46 ; Status DC Dextrose (D50w (Vial) Inj) 50 ml ONCE ONCE IV PUSH Last administered on 14:43; Start 10/23/16 at 14:45; Stop 10/23/16 at 14:46; Status DC Sodium Bicarbonate (Sodium Bicarbonate 8.4% Inj) 50 meq ONCE ONCE SLOW IVP Last administered on 10/23/16 14:44; Start 10/23/16 at 14:45; Stop 10/23/16 at 14:46; Status DC Sodium Polystyrene Sulfonate 15 gm 15 gm ONCE ONCE PO Last administered on 14:44; Start 10/23/16 at 14:45; Stop 10/23/16 at 14:46; Status DC Vancomycin HCl 1000 mg/Sodium Chloride 250 ml @ 250 mls/hr ONCE ONCE IV Last administered on 10/23/16 15:35; Start 10/23/16 at 15:30; Stop 10/23/16 at 16:29 ; Status DC Ceftriaxone Sodium/Sodium Chloride (Rocephin Inj/NS Inj) 100 ml @ 200 mls/hr ONCE ONCE IV ; Start 10/23/16 at 15:45; Stop 10/23/16 at 16:14; Status Cancel Dextrose (D50w (Vial) Inj) 25 ml UNSCH PRN IV PUSH HYPOGLYCEMIA-SEE COMMENTS; Start 10/23/16 at 15:45; Stop 10/26/16 at 09:05; Status DC Glucagon (Glucagon Inj) 1 mg UNSCH PRN OTHER HYPOGLYCEMIA-SEE COMMENTS; Start 10/23/16 at 15:45; Stop 10/26/16 at 09:05; Status DC Insulin Aspart (NovoLOG SUPPLEMENTAL SCALE) 1 ACHS SLIDING SCALE SQ Last administered on 10/23/16 16:36; Start 10/23/16 at 16:00; Stop 10/24/16 at 12:00 ; Status DC Nitroglycerin 0.4 mg 0.4 mg Q5M PRN SL X 3 doses for chest pain; Start at 16:00 Piperacillin Sod/ Tazobactam Sod (Zosyn 3.375 Gm Premix) 50 ml @ 100 mls/hr Q6H IV Last administered on 10/24/16 06:52; Start 10/23/16 at 18:00; Stop at 09:53; Status DC Guaifenesin/ Codeine Phosphate (Robitussin Ac 200-20 Mg/10 ml Liq) 10 ml Q4H PRN PO COUGH Last administered on 10/28/16 22:09; Start 10/23/16 at 16:00 Guaifenesin 600 mg 600 mg BID PO Last administered on 11/01/16 08:54; Start at 21:00 Sodium Chloride (NS 1000 ml Inj) 1,000 ml @ 100 mls/hr Q10H IV Last administered on 10/23/16 18:09; Start 10/23/16 at 15:48; Stop 10/24/16 at 07:06 ; Status DC Sodium Chloride (NS Flush) 2 ml UNSCH PRN IV FLUSH FLUSH AFTER USING IV ACCESS Last administered on 10/29/16 12:41; Start 10/23/16 at 16:00 Sodium Chloride (NS Flush) 2 ml BID IV FLUSH Last administered on 11/01/16 08: 56; Start 10/23/16 at 21:00 Ondansetron HCl (Zofran Inj) 4 mg Q6H PRN IVP NAUSEA OR VOMITING Last administered on 11/01/16 04:56; Start 10/23/16 at 16:00 Bisacodyl (Dulcolax Supp) 10 mg DAILY PRN RECTAL CONSTIPATION; Start 10/23/16 at 16:00 Heparin Sodium (Porcine) (Heparin Inj) 5,000 units Q12H SQ Last administered on 11/01/16 04:42; Start 10/23/16 at 18:00 Acetaminophen (Tylenol) 650 mg Q6H PRN PO PAIN SCALE 1 TO 2, T > 101; Start at 16:00 Acetaminophen/ Hydrocodone Bitart ([place] 5-325 Mg) 1 tab Q4H PRN PO PAIN SCALE 3 TO 5 Last administered on 10/28/16 14:37; Start 10/23/16 at 16:00 Acetaminophen/ Hydrocodone Bitart ([place] 7.5-325 Mg) 1 tab Q4H PRN PO PAIN SCALE 6 TO 10 Last administered on 10/29/16 09:18; Start 10/23/16 at 16:00 Morphine Sulfate (Morphine Inj) 1 mg Q3H PRN IV BREAKTHROUGH PAIN Last administered on 10/29/16 10:39; Start 10/23/16 at 16:00; Stop 10/30/16 at 11:21 ; Status DC Naloxone HCl (Narcan Inj) 0.4 mg UNSCH PRN IV SEE LABEL COMMENTS; Start at 16:00 Insulin Detemir (Levemir Inj) 37 units HS SQ Last administered on 10/23/16 22: 27; Start 10/23/16 at 21:00; Stop 10/24/16 at 08:37; Status DC Insulin Human Regular (NovoLIN R INJ) 6 units ONCE ONCE SQ ; Start 10/23/16 at 16:15; Stop 10/23/16 at 16:16; Status DC Hydralazine HCl (Apresoline Inj) 10 mg Q6H PRN IV SBP> OR = 180, DBP> OR = 100 ; Start 10/23/16 at 19:15 Clonidine (Catapres) 0.1 mg Q6H PRN PO SBP> OR = 180, DBP> OR = 100; Start at 19:15 Sodium Polystyrene Sulfonate (Kayexalate Liq) 15 gm QID PO Last administered on 10/24/16 13:43; Start 10/23/16 at 21:00; Stop 10/24/16 at 13:01; Status DC Insulin Human Regular (NovoLIN R INJ) 10 units ONCE ONCE IV PUSH Last administered on 10/23/16 19:15; Start 10/23/16 at 19:15; Stop 10/23/16 at 19:40 ; Status DC Dextrose (D50w (Vial) Inj) 50 ml ONCE ONCE IV PUSH Last administered on 20:09; Start 10/23/16 at 19:15; Stop 10/23/16 at 19:40; Status DC Calcium Gluconate (Calcium Gluconate Inj) 1 gm ONCE ONCE IV Last administered on 10/23/16 20:09; Start 10/23/16 at 19:15; Stop 10/23/16 at 19:41; Status DC Albuterol Sulfate (Albuterol Concentrated Neb) 10 mg ONCE ONCE INH Last administered on 10/23/16 21:55; Start 10/23/16 at 19:15; Stop 10/23/16 at 19:41 ; Status DC Insulin Human Regular (NovoLIN R INJ) 10 units ONCE ONCE IV PUSH Last administered on 10/24/16 05:17; Start 10/24/16 at 03:45; Stop 10/24/16 at 03:47 ; Status DC Dextrose (D50w (Vial) Inj) 50 ml ONCE ONCE IV PUSH Last administered on 05:18; Start 10/24/16 at 03:45; Stop 10/24/16 at 03:47; Status DC Calcium Gluconate (Calcium Gluconate Inj) 1 gm ONCE ONCE IV PUSH Last administered on 10/24/16 05:19; Start 10/24/16 at 03:45; Stop 10/24/16 at 03:47 ; Status DC Sodium Polystyrene Sulfonate (Kayexalate Enema) 30 gm ONCE ONCE RECTAL ; Start 10/24/16 at 03:45; Stop 10/24/16 at 03:46; Status Cancel Sodium Polystyrene Sulfonate (Kayexalate Liq) 30 gm ONCE ONCE RECTAL Last administered on 10/24/16 05:20; Start 10/24/16 at 05:00; Stop 10/24/16 at 05:01 ; Status DC Furosemide (Lasix Inj) 40 mg ONCE ONCE IV PUSH Last administered on 10/24/16 09:08; Start 10/24/16 at 07:15; Stop 10/24/16 at 07:29; Status DC Succinylcholine Chloride (Quelicin Inj) 200 mg STK-MED ONCE .ROUTE Last administered on 10/24/16 09:09; Start 10/24/16 at 07:37; Stop 10/24/16 at 07:38 ; Status DC Etomidate 20 mg 20 mg STK-MED ONCE .ROUTE Last administered on 10/24/16 09:08 ; Start 10/24/16 at 07:38; Stop 10/24/16 at 07:39; Status DC Propofol (Diprivan 1000 Mg/100ml Inj) 100 ml @ 0 mls/hr TITRATE IV Last administered on 10/27/16 06:31; Start 10/24/16 at 08:45; Stop 10/27/16 at 13:41 ; Status DC Insulin Human Regular (NovoLIN R INJ) 8 units ONCE ONCE IV PUSH Last administered on 10/24/16 09:37; Start 10/24/16 at 08:45; Stop 10/24/16 at 08:46 ; Status DC Dextrose (D50w (Syr) Inj) 50 ml ONCE ONCE IV Last administered on 10/24/16 09 :37; Start 10/24/16 at 08:45; Stop 10/24/16 at 08:46; Status DC Sodium Bicarbonate 50 meq 50 meq ONCE ONCE IV PUSH Last administered on 09:38; Start 10/24/16 at 08:45; Stop 10/24/16 at 08:46; Status DC Calcium Gluconate/ Sodium Chloride (Calcium Gluconate Inj/NS Inj) 110 ml @ 110 mls/hr ONCE ONCE IV Last administered on 10/24/16 09:09; Start 10/24/16 at 09 :00; Stop 10/24/16 at 09:59; Status DC Sodium Polystyrene Sulfonate 15 gm 15 gm ONCE ONCE PO ; Start 10/24/16 at 08:45 ; Stop 10/24/16 at 08:46; Status DC Piperacillin Sod/ Tazobactam Sod (Zosyn 2.25 Gm Premix) 50 ml @ 100 mls/hr Q6HR IV Last administered on 10/28/16 05:14; Start 10/24/16 at 12:00; Stop at 07:39; Status DC Insulin Aspart (NovoLOG SUPPLEMENTAL SCALE) 1 Q6H SQ Last administered on 05:21; Start 10/24/16 at 17:00; Stop 10/26/16 at 08:58; Status DC Albuterol/ Ipratropium (Duoneb Neb) 1 ampule Q6HR NEB NEB Last administered on 10/27/16 09:34; Start 10/24/16 at 13:00; Stop 10/27/16 at 13:49; Status DC Pantoprazole Sodium (Protonix Inj) 40 mg Q24H IV PUSH Last administered on 10/29 12:41; Start 10/24/16 at 13:00; Stop 10/30/16 at 11:27; Status DC Furosemide (Lasix Inj) 40 mg BID@09,18 IV PUSH Last administered on 10/25/16 08:49; Start 10/24/16 at 13:00; Stop 10/25/16 at 09:20; Status DC Miscellaneous Information Patient in critical care unit? Ass... [id number] .XX ; Start 10/24/16 at 19:30 Chlorhexidine Gluconate (Chlorhexidine 2% Cloth) 3 pack DAILY@04 TOPICAL Last administered on 10/29/16 04:00; Start 10/25/16 at 04:00; Stop 10/29/16 at 04:01 ; Status DC Chlorhexidine Gluconate (Chlorhexidine 2% Cloth) 3 pack UNSCH PRN TOPICAL HYGIENIC CARE; Start 10/24/16 at 19:30; Stop 10/29/16 at 19:18; Status DC Furosemide (Lasix Inj) 40 mg DAILY IV PUSH Last administered on 11/01/16 08:54 ; Start 10/26/16 at 09:00 Nicotine (Habitrol 7 Mg Patch.24 Hr) 1 patch DAILY T-DERMAL Last administered on 11/01/16 08:55; Start 10/25/16 at 16:45 Miscellaneous Information 1 DAILY T-DERMAL Last administered on 11/01/16 08:55 ; Start 10/26/16 at 09:00 Linezolid (Zyvox) 600 mg Q12HR PO Last administered on 11/01/16 08:54; Start 10/26/16 at 09:00 Dextrose (D50w (Vial) Inj) 25 ml UNSCH PRN IV PUSH HYPOGLYCEMIA-SEE COMMENTS; Start 10/26/16 at 09:00 Glucagon (Glucagon Inj) 1 mg UNSCH PRN OTHER HYPOGLYCEMIA-SEE COMMENTS; Start 10/26/16 at 09:00 Insulin Human Regular (NovoLIN R SUPPLEMENTAL SCALE) 1 Q6H SQ ; Start 10/26/16 at 09:00; Stop 10/26/16 at 16:56; Status DC Insulin Human Regular (NovoLIN R SUPPLEMENTAL SCALE) 1 Q6H SQ Last administered on 10/31/16 23:00; Start 10/26/16 at 17:00 Albuterol/ Ipratropium (Duoneb Neb) 1 ampule Q4HR NEB NEB Last administered on 10/31/16 15:30; Start 10/27/16 at 16:00; Stop 10/31/16 at 16:00; Status DC Albuterol/ Ipratropium 1 ampule 1 ampule Q2HR NEB PRN NEB SHORTNESS OF BREATH; Start 10/27/16 at 13:45 Dexmedetomidine HCl/Sodium Chloride (Precedex Inj/NS 250 ml Inj) 250 ml @ 0 mls/ hr TITRATE IV Last administered on 10/28/16 05:33; Start 10/27/16 at 21:30; Stop 10/28/16 at 12:10; Status DC Hydromorphone HCl (Dilaudid Pf Inj) 0.5 mg Q3HR PRN IV PUSH BREAKTHROUGH PAIN Last administered on 11/01/16 04:55; Start 10/30/16 at 11:15 Pantoprazole Sodium (Protonix) 40 mg Q24H PO Last administered on 10/31/16 16: 17; Start 10/30/16 at 13:00 A/P Assessment and Plan A/P 1. VDRF/ MRSA pneumonia - Extubated 10/27 keep on oxygen to keep O2 sat > 90%- continue with neb treatment-BiPaP as needed. continue Zyvox. will repeat ABG today since the patient is somewhat lethargic. pulmonary following. 2. Acute renal failure-improved. renal function stable- renal sonogram with no hydronephrosis- nephrology following. 3. Hyperkalemia-resolved 4. Encephalopathy multifactorial likely secondary to CO2 narcosis and uremia- seems worse today- repeat ABG. 5. Mild elevation in troponin likely due to respiratory failure 6. Leukocytosis-has resolved. 7. Hypertension- BP fairly stable- will continue to monitor. 8. Hyperglycemia with underlying history of diabetes mellitus- continue accu- check with SSI. 9. Cellulitis of the lower extremities- continue Abx- wound care following. 10. Obstructive sleep apnea; BiPaP as needed. DVT/ GI prophylaxis with subq Heparin/ PPI. continue PT. will consider palliative care evaluation. tried to talk to the daughter several times; was not able to reach her. Discharge Planning not ready for discharge. Lety Machado MD Nov 01, 2016 09:45
[2016-11-01 11:24] LABS: BLOOD GAS BASE EXCESS 3.7 mmol/L (-2-2); BLOOD GAS HCO3 30 mmol/L (22-26); BLOOD GAS METHEMOGLOBIN 1.3 % (0-2); BLOOD GAS O2 HGB SATURATION 91 % (90-100); BLOOD GAS PCO2 68 mmHg (38-42); BLOOD GAS PO2 82 mmHg (61-120); BLOOD GAS TOTAL HGB 10.1 G/DL (12.0-16.0); TEMP CORR TO 98.6
[2016-11-01 11:26] LABS: CRITICAL VALUE YES; DRAW SITE RT RADIAL; LITER FLOW 2 L/M; NUMBER OF ARTERIAL PUNCTURES 1; OXYGEN DEVICE NASAL CANNULA; STAT NO; ULNAR PULSE PRESENT
--- NOTE | 2016-11-01 11:33 | HHI.PR ---
Addendum To [facility] Progress Not Reason for addendum: Additonal documentation (ABG was reviewed by me; with hypercapnic respiratory acidosis- patient will be started back on BiPaP. will monitotr clinically.) Lety Machado MD Nov 01, 2016 11:33
[2016-11-01] MEDS: PANTOPRAZOLE SOD 40 MG DELAYED RELEASE TAB PO SCH (13:53)
--- NOTE | 2016-11-01 15:51 | HHI.NPPN ---
Subjective General Problems: Anemia, Edema Renal Failure: Chronic, Acute, Stage III History of Present Illness 71-year-old female with a past medical history of hypertension, diabetes mellitus, hyperlipidemia, chronic obstructive pulmonary disease, cerebrovascular accident, transferred [facility], came to the hospital because of left-sided weakness. I was called to see the patient because of elevated BUN and creatinine. The patient has a creatinine of 2.0 on presentation. She previously has a creatinine of 1.5-1.6 but this was two years ago. Additional Remarks Patient is alert, not in distress. Review of Systems General General Remarks Intubated and sedated. Objective Data Data 10/31/16 11/01/16 19:00 07:00 Intake Total 1440 ml Output Total 2050 ml Balance -610 ml Intake Oral 1440 ml Output Urine Total 2050 ml # Bowel Movements 2 Vital Signs Date Time Temp Pulse Resp B/P Pulse Ox O2 Delivery O2 Flow Rate FiO2 11/01/16 15:00 97 Bi-Pap 35 11/01/16 15:00 98.7 94 16 91/42 95 11/01/16 15:00 106 11/01/16 14:56 96 35 11/01/16 14:10 96 Nasal Cannula 3.00 11/01/16 14:00 110 11/01/16 13:00 108 11/01/16 12:00 92 11/01/16 11:46 99 Bi-Pap 35 11/01/16 11:41 97 35 11/01/16 11:00 98.2 100 20 89/46 97 11/01/16 11:00 103 11/01/16 11:00 97 Nasal Cannula 3.00 11/01/16 10:00 94 11/01/16 09:13 97 Nasal Cannula 2.00 11/01/16 09:00 106 11/01/16 08:00 104 11/01/16 07:00 97 Nasal Cannula 3.00 11/01/16 07:00 107 11/01/16 07:00 97.6 109 18 105/49 97 11/01/16 06:00 112 11/01/16 05:00 104 11/01/16 04:00 110 11/01/16 04:00 97.7 102 18 119/56 99 11/01/16 04:00 Nasal Cannula 3.00 11/01/16 03:00 98 11/01/16 02:00 98 11/01/16 01:00 106 11/01/16 00:00 97.6 101 18 111/42 97 11/01/16 00:00 107 11/01/16 00:00 Nasal Cannula 3.00 10/31/16 23:00 100 10/31/16 22:00 102 10/31/16 21:00 100 10/31/16 20:06 95 Nasal Cannula 3.00 10/31/16 20:00 Nasal Cannula 3.00 10/31/16 20:00 107 10/31/16 20:00 98.6 109 18 135/62 96 10/31/16 18:01 124 10/31/16 17:00 116 10/31/16 16:00 108 -: 10/29/16 0532 11/01/16 0602 Physical Exam General Appearance: No Acute Distress, Anxious Eyes Eye Exam: Pupils Equal Throat Throat Exam: Oral Mucosa Encampment & Moist Neck Neck Exam: Neck Supple Pulmonary Resp Exam: No Distress, Rhonchi, Decreased Bases, Diminished Breath Sounds Cardiology CV Exam: Regular, Normal Sinus Rhythm Gastrointestinal/Abdomen GI Exam: Soft, Non-Tender, Bowel Sounds Present, Distended Extremeties Extremities Exam: Moderate Edema, Pitting Edema, Dependent Edema (Both legs has erythema and covered with dressing.) Neurologic Neuro Exam: Alert, Awake Assessment/Plan Assessment Summary: HIRAM/Acute Renal Failure, Fluid/Volume Overload, CKD Stage III Problem List: (1) Renal insufficiency (2) Leukocytosis (3) Encephalopathy (4) Diabetes mellitus (5) Acute worsening of stage 3 chronic kidney disease Plan Patient has good urine out put. On Lasix once a day. BP is stable, Continue Zosyn, Follow the urine out put and BMP. Possibly close to her baseline. Continue Lasix and antibiotics. Now new BMP, follow in AM. Problem Qualifiers (1) Diabetes mellitus: Bree Dill MD Nov 01, 2016 15:51
--- NOTE | 2016-11-01 20:34 | HHI.PR ---
Subjective Remarks 71 YOWF with COPD,RF, obesity Weaned top NC No fever has cough, occ sputum Developed resp acidosis Put back on BIPAP Objective Vital Signs Vital Signs Date Time Temp Pulse Resp B/P Pulse Ox O2 Delivery O2 Flow Rate FiO2 11/01/16 18:00 76 11/01/16 17:00 120 11/01/16 16:00 90 11/01/16 15:00 97 Bi-Pap 35 11/01/16 15:00 98.7 94 16 91/42 95 11/01/16 15:00 106 11/01/16 14:56 96 35 11/01/16 14:10 96 Nasal Cannula 3.00 11/01/16 14:00 110 11/01/16 13:00 108 11/01/16 12:00 92 11/01/16 11:46 99 Bi-Pap 35 11/01/16 11:41 97 35 11/01/16 11:00 98.2 100 20 89/46 97 11/01/16 11:00 103 11/01/16 11:00 97 Nasal Cannula 3.00 11/01/16 10:00 94 11/01/16 09:13 97 Nasal Cannula 2.00 11/01/16 09:00 106 11/01/16 08:00 104 11/01/16 07:00 97 Nasal Cannula 3.00 11/01/16 07:00 107 11/01/16 07:00 97.6 109 18 105/49 97 11/01/16 06:00 112 11/01/16 05:00 104 11/01/16 04:00 110 11/01/16 04:00 97.7 102 18 119/56 99 11/01/16 04:00 Nasal Cannula 3.00 11/01/16 03:00 98 11/01/16 02:00 98 11/01/16 01:00 106 11/01/16 00:00 97.6 101 18 111/42 97 11/01/16 00:00 107 11/01/16 00:00 Nasal Cannula 3.00 10/31/16 23:00 100 10/31/16 22:00 102 10/31/16 21:00 100 I/O 10/31/16 10/31/16 10/31/16 11/01/16 11/01/16 11/01/16 07:00 15:00 23:00 07:00 15:00 23:00 Intake Total 1440 ml 420 ml Output Total 700 ml 1150 ml 900 ml 950 ml Balance -700 ml 290 ml -900 ml -530 ml Intake Oral 1440 ml 420 ml Output Urine Total 700 ml 1150 ml 900 ml 950 ml # Bowel Movements 2 Result Diagram: 10/29/16 0532 11/01/16 0602 Objective Remarks GENERAL: Obese female mild sob. SKIN: Warm and dry. HEAD: Normocephalic. EYES: No scleral icterus. No injection or drainage. NECK: Supple, trachea midline. No JVD or lymphadenopathy. CARDIOVASCULAR: Regular rate and rhythm without murmurs, gallops, or rubs. RESPIRATORY: Breath sounds equal bilaterally. No accessory muscle use. GASTROINTESTINAL: Abdomen soft, non-tender, nondistended. MUSCULOSKELETAL: No cyanosis, or edema. BACK: Nontender without obvious deformity. No CVA tenderness. A/P Assessment and Plan hypercapnoic RF COPD DM Nicotine use Obesity HTN PLAN: Cont BIPAP Aerosol nebs Suplement 02 Monitor BS and Pedro Loera MD Nov 01, 2016 20:33
[2016-11-01] MEDS ORDERED: DILTIAZEM HCL 25 MG/5 ML VIAL IV ONE (23:45)
[2016-11-02] VITALS (24 sets, daily range): BP systolic 117–142; BP diastolic 58–72; PULSE 90–120; RESP 16–20; TEMP 98–98.4; O2SAT 92–100
[2016-11-02] MEDS: INSULIN NovoLIN REGULAR SUPPLEMENTAL SCALE SQ SCH ×4 (05:00→23:00)
[2016-11-02] MEDS: HEPARIN SODIUM - SQ 10,000 UNITS/ML VIAL SQ SCH ×2 (06:00→17:42)
[2016-11-02] MEDS: guaiFENesin E.R. 600 MG TAB PO SCH ×2 (08:05→20:39)
[2016-11-02] MEDS: LINEZOLID 600 MG TAB PO SCH ×2 (08:05→20:39)
[2016-11-02] MEDS: REMOVE OLD PATCH T-DERMAL SCH (08:05)
[2016-11-02] MEDS: FUROSEMIDE 40 MG/4 ML VIAL IV PUSH SCH (08:05)
[2016-11-02] MEDS: NICOTINE 7 MG/24 HR PATCH T-DERMAL SCH (08:05)
[2016-11-02] MEDS: SODIUM CHLORIDE 0.9% FLUSH 10 ML FLUSH IV FLUSH SCH ×2 (08:06→20:39)
--- NOTE | 2016-11-02 08:09 | HHI.PR ---
Addendum to Inpatient Note Addendum Reason: Additional Documentation Additional Information I was called by patient's nurse overnight because patient was tachycardic with a heart rate around [id number]. she was asymptomatic at that time. She did not have any respiratory distress. She was already on BiPAP by then. I have therefore given Cardizem 10 mg IV push times one dose. Also had requested for EKG. EKG was done and reviewed personally. Showed atrial fibrillation, irregularly irregular rhythm, with a ventricular rate of 165. Her heart rate improved down to 90s after one dose of Cardizem as above. To please evaluate for possible anticoagulation choice. Patient has recent echo. Juan Carlos Meadows MD Nov 02, 2016 08:08
--- NOTE | 2016-11-02 10:12 | EKG ---
Date Performed: 11/01/2016 Time Performed: 23:53:54 PTAGE: 71 years EKG: Atrial fibrillation with uncontrolled ventricular response Nonspecific ST-T wave changes Ab normal ECG COMPARED TO PRIOR ELECTROCARDIOGRAM, Rate has increased but because of artifact , prior el ectrocardiogram does not have definite rhythm. ST-T wave changes are present. PREVIOUS TRACING : 10/23/2016 12.11 DOCTOR: Blake Kumar Interpretating Date/Time 11/02/2016 10:11:37
--- NOTE | 2016-11-02 10:32 | HHI.NPPN ---
Subjective General Problems: Anemia, Edema Renal Failure: Chronic, Acute, Stage III History of Present Illness 71-year-old female with a past medical history of hypertension, diabetes mellitus, hyperlipidemia, chronic obstructive pulmonary disease, cerebrovascular accident, transferred here from [facility], came to the hospital because of left-sided weakness. I was called to see the patient because of elevated BUN and creatinine. The patient has a creatinine of 2.0 on presentation. She previously has a creatinine of 1.5-1.6 but this was two years ago. Additional Remarks Patient is alert, not in distress, with nasal cannula. Review of Systems General General Remarks Intubated and sedated. Objective Data Data 11/01/16 11/02/16 19:00 07:00 Intake Total 420 ml 100 ml Output Total 950 ml 450 ml Balance -530 ml -350 ml Intake Oral 420 ml 100 ml Output Urine Total 950 ml 450 ml # Bowel Movements 0 Vital Signs Date Time Temp Pulse Resp B/P Pulse Ox O2 Delivery O2 Flow Rate FiO2 11/02/16 09:01 100 Nasal Cannula 3.00 11/02/16 09:00 112 11/02/16 08:00 92 11/02/16 07:00 97 11/02/16 07:00 100 Nasal Cannula 2.00 11/02/16 07:00 98.2 98 18 122/58 100 11/02/16 06:35 Nasal Cannula 2.00 11/02/16 06:00 99 11/02/16 05:01 100 35 11/02/16 05:00 93 11/02/16 04:00 99 Bi-Pap 35 11/02/16 04:00 96 11/02/16 04:00 98.3 96 16 125/72 99 11/02/16 02:00 98 11/02/16 00:00 120 11/02/16 00:00 98.4 120 16 117/66 98 11/02/16 00:00 98 Bi-Pap 35 11/01/16 22:40 98 BiPAP 35 11/01/16 20:53 99 35 11/01/16 20:00 100 Bi-Pap 35 11/01/16 20:00 98.4 88 16 142/70 100 11/01/16 20:00 88 11/01/16 19:00 87 11/01/16 18:00 76 11/01/16 17:00 120 11/01/16 16:00 90 11/01/16 15:00 97 Bi-Pap 35 11/01/16 15:00 98.7 94 16 91/42 95 11/01/16 15:00 106 11/01/16 14:56 96 35 11/01/16 14:10 96 Nasal Cannula 3.00 11/01/16 14:00 110 11/01/16 13:00 108 11/01/16 12:00 92 11/01/16 11:46 99 Bi-Pap 35 11/01/16 11:41 97 35 11/01/16 11:00 98.2 100 20 89/46 97 11/01/16 11:00 103 11/01/16 11:00 97 Nasal Cannula 3.00 -: 10/29/16 0532 11/01/16 0602 Physical Exam General Appearance: No Acute Distress, Anxious Eyes Eye Exam: Pupils Equal Throat Throat Exam: Oral Mucosa [place] & Moist Neck Neck Exam: Neck Supple Pulmonary Resp Exam: No Distress, Rhonchi, Decreased Bases, Diminished Breath Sounds Cardiology CV Exam: Regular, Normal Sinus Rhythm Gastrointestinal/Abdomen GI Exam: Soft, Non-Tender, Bowel Sounds Present, Distended Extremeties Extremities Exam: Moderate Edema, Pitting Edema, Dependent Edema (Both legs has erythema and covered with dressing.) Neurologic Neuro Exam: Alert, Awake Assessment/Plan Assessment Summary: HIRAM/Acute Renal Failure, Fluid/Volume Overload, CKD Stage III Problem List: (1) Renal insufficiency (2) Leukocytosis (3) Encephalopathy (4) Diabetes mellitus (5) Acute worsening of stage 3 chronic kidney disease Plan Patient has good urine out put. On Lasix once a day. BP is stable, Continue Zosyn, Creatinine remain 2.7-2.8. Urine out put is good. Edema is better. Her baseline Creatinine is close to 2.0. Follow urine out put, continue Lasix. Problem Qualifiers (1) Diabetes mellitus: Bree Dill MD Nov 02, 2016 10:31
--- NOTE | 2016-11-02 10:32 | HHI.NPPN ---
Subjective General Problems: Anemia, Edema Renal Failure: Chronic, Acute, Stage III History of Present Illness 71-year-old female with a past medical history of hypertension, diabetes mellitus, hyperlipidemia, chronic obstructive pulmonary disease, cerebrovascular accident, transferred here from [facility], came to the hospital because of left-sided weakness. I was called to see the patient because of elevated BUN and creatinine. The patient has a creatinine of 2.0 on presentation. She previously has a creatinine of 1.5-1.6 but this was two years ago. Additional Remarks Patient is alert, not in distress, with nasal cannula, eating better. Review of Systems General General Remarks Intubated and sedated. Objective Data Data 11/01/16 11/02/16 19:00 07:00 Intake Total 420 ml 100 ml Output Total 950 ml 450 ml Balance -530 ml -350 ml Intake Oral 420 ml 100 ml Output Urine Total 950 ml 450 ml # Bowel Movements 0 Vital Signs Date Time Temp Pulse Resp B/P Pulse Ox O2 Delivery O2 Flow Rate FiO2 11/02/16 09:01 100 Nasal Cannula 3.00 11/02/16 09:00 112 11/02/16 08:00 92 11/02/16 07:00 97 11/02/16 07:00 100 Nasal Cannula 2.00 11/02/16 07:00 98.2 98 18 122/58 100 11/02/16 06:35 Nasal Cannula 2.00 11/02/16 06:00 99 11/02/16 05:01 100 35 11/02/16 05:00 93 11/02/16 04:00 99 Bi-Pap 35 11/02/16 04:00 96 11/02/16 04:00 98.3 96 16 125/72 99 11/02/16 02:00 98 11/02/16 00:00 120 11/02/16 00:00 98.4 120 16 117/66 98 11/02/16 00:00 98 Bi-Pap 35 11/01/16 22:40 98 BiPAP 35 11/01/16 20:53 99 35 11/01/16 20:00 100 Bi-Pap 35 11/01/16 20:00 98.4 88 16 142/70 100 11/01/16 20:00 88 11/01/16 19:00 87 11/01/16 18:00 76 11/01/16 17:00 120 11/01/16 16:00 90 11/01/16 15:00 97 Bi-Pap 35 11/01/16 15:00 98.7 94 16 91/42 95 11/01/16 15:00 106 11/01/16 14:56 96 35 11/01/16 14:10 96 Nasal Cannula 3.00 11/01/16 14:00 110 11/01/16 13:00 108 11/01/16 12:00 92 11/01/16 11:46 99 Bi-Pap 35 11/01/16 11:41 97 35 11/01/16 11:00 98.2 100 20 89/46 97 11/01/16 11:00 103 11/01/16 11:00 97 Nasal Cannula 3.00 -: 10/29/16 0532 11/01/16 0602 Physical Exam General Appearance: No Acute Distress, Anxious Eyes Eye Exam: Pupils Equal Throat Throat Exam: Oral Mucosa [place] & Moist Neck Neck Exam: Neck Supple Pulmonary Resp Exam: No Distress, Rhonchi, Decreased Bases, Diminished Breath Sounds Cardiology CV Exam: Regular, Normal Sinus Rhythm Gastrointestinal/Abdomen GI Exam: Soft, Non-Tender, Bowel Sounds Present, Distended Extremeties Extremities Exam: Moderate Edema, Pitting Edema, Dependent Edema (Both legs has erythema and covered with dressing.) Neurologic Neuro Exam: Alert, Awake Assessment/Plan Assessment Summary: HIRAM/Acute Renal Failure, Fluid/Volume Overload, CKD Stage III Problem List: (1) Renal insufficiency (2) Leukocytosis (3) Encephalopathy (4) Diabetes mellitus (5) Acute worsening of stage 3 chronic kidney disease Plan Patient has good urine out put. On Lasix once a day. BP is stable, Continue Zosyn, Creatinine is better , now 2.2 Her baseline Creatinine is close to 2.0. Follow urine out put, continue Lasix. Urine out put is adequate, edema is better. Problem Qualifiers (1) Diabetes mellitus: Bree Dill MD Nov 02, 2016 10:32
[2016-11-02] MEDS: ACETAMINOPHEN/HYDROcodone 325 MG/7.5 MG TAB PO PRN ×2 (11:04→20:40)
[2016-11-02] MEDS: HYDROmorphone HCL PF 1 MG/ML VIAL IV PUSH PRN (11:04)
--- NOTE | 2016-11-02 11:37 | HHI.PR ---
Subjective Remarks in no acute distress. is more alert today. night time provider note reviewed. was found to be in a-fib with rapid rate for which she received a dose of cardizem. denies chest pain. Objective Vitals Vital Signs Date Time Temp Pulse Resp B/P Pulse Ox O2 Delivery O2 Flow Rate FiO2 11/02/16 10:00 106 11/02/16 09:01 100 Nasal Cannula 3.00 11/02/16 09:00 112 11/02/16 08:00 92 11/02/16 07:00 97 11/02/16 07:00 100 Nasal Cannula 2.00 11/02/16 07:00 98.2 98 18 122/58 100 11/02/16 06:35 Nasal Cannula 2.00 11/02/16 06:00 99 11/02/16 05:01 100 35 11/02/16 05:00 93 11/02/16 04:00 99 Bi-Pap 35 11/02/16 04:00 96 11/02/16 04:00 98.3 96 16 125/72 99 11/02/16 02:00 98 11/02/16 00:00 120 11/02/16 00:00 98.4 120 16 117/66 98 11/02/16 00:00 98 Bi-Pap 35 11/01/16 22:40 98 BiPAP 35 11/01/16 20:53 99 35 11/01/16 20:00 100 Bi-Pap 35 11/01/16 20:00 98.4 88 16 142/70 100 11/01/16 20:00 88 11/01/16 19:00 87 11/01/16 18:00 76 11/01/16 17:00 120 11/01/16 16:00 90 11/01/16 15:00 97 Bi-Pap 35 11/01/16 15:00 98.7 94 16 91/42 95 11/01/16 15:00 106 11/01/16 14:56 96 35 11/01/16 14:10 96 Nasal Cannula 3.00 11/01/16 14:00 110 11/01/16 13:00 108 11/01/16 12:00 92 11/01/16 11:46 99 Bi-Pap 35 11/01/16 11:41 97 35 I/O 4/27/17 4/27/17 11/01/16 11/02/16 11/02/16 11/02/16 07:00 15:00 23:00 07:00 15:00 23:00 Intake Total 420 ml 100 ml Output Total 900 ml 950 ml 450 ml Balance -900 ml -530 ml -350 ml Intake Oral 420 ml 100 ml Output Urine Total 900 ml 950 ml 450 ml # Bowel Movements 0 Result Diagram: 10/29/16 0532 11/01/16 0602 Imaging Last Impressions Chest X-Ray 10/27/16 0000 Signed Impressions: Service Date/Time: Thursday, October 27, 2016 12:27 - CONCLUSION: 1. ET tube in a somewhat low position approximately 1.6 cm above the kimberlyn. This could be pulled back to a better position by pulling it back 1 to 2 cm. 2. Suspected atelectasis at the right lung base. King Brown MD Renal Ultrasound 10/25/16 0000 Signed Impressions: Service Date/Time: October 10:11 - CONCLUSION: 1. Lower pole right renal cyst measuring 4.2 x 3.3 x 4.6 cm. 2. No hydronephrosis, solid mass or calcified calculus. 3. Poor visualization of the bladder due to nondistention. Jaime Norris MD Head CT 10/24/16 0000 Signed Impressions: Service Date/Time: Monday, October 24, 2016 16:56 - CONCLUSION: 1. No acute findings in the brain. 2. Right paranasal sinus disease with air-fluid levels. Anthony Lockhart MD Lower Extremity Ultrasound 10/23/16 0000 Signed Impressions: Service Date/Time: Sunday, October 23, 2016 13:47 - CONCLUSION: The study is negative for deep venous thrombosis bilateral lower extremity. Anthony Lockhart MD Objective Remarks GENERAL: in no acute distress CARDIOVASCULAR: Regular rate and irregular rhythm without murmurs, gallops, or rubs. RESPIRATORY: diminished air entry bilaterally GASTROINTESTINAL: Abdomen soft, non-tender, nondistended. Normal, active bowel sounds MUSCULOSKELETAL: Extremities with bilateral pedal edema NEURO: awake and more alert today. Procedures intubation/ extubation Medications and IVs Current Medications Aspirin (Aspirin Chew) 162 mg ONCE ONCE PO Last administered on 10/23/16t 12: 21; Start 10/23/16 at 12:15; Stop 10/23/16 at 12:16; Status DC Sodium Chloride 2 ml 2 ml UNSCH PRN IVF FLUSH AFTER USING IV ACCESS; Start at 12:15 Sodium Chloride (NS 500 ml Inj) 500 ml @ 500 mls/hr ONCE ONCE IV Last administered on 10/23/16 12:21; Start 10/23/16 at 12:15; Stop 10/23/16 at 13:14 ; Status DC Morphine Sulfate (Morphine Inj) 4 mg ONCE ONCE SQ ; Start 10/23/16 at 13:45; Stop 10/23/16 at 13:48; Status DC Morphine Sulfate (Morphine Inj) 4 mg ONCE ONCE IV PUSH Last administered on 13:49; Start 10/23/16 at 14:00; Stop 10/23/16 at 14:01; Status DC Calcium Gluconate (Calcium Gluconate Inj) 1 gm ONCE ONCE SLOW IVP Last administered on 10/23/16 14:44; Start 10/23/16 at 14:45; Stop 10/23/16 at 14:46 ; Status DC Insulin Human Regular (NovoLIN R INJ) 10 units ONCE ONCE IV PUSH Last administered on 10/23/16 14:44; Start 10/23/16 at 14:45; Stop 10/23/16 at 14:46 ; Status DC Dextrose (D50w (Vial) Inj) 50 ml ONCE ONCE IV PUSH Last administered on 14:43; Start 10/23/16 at 14:45; Stop 10/23/16 at 14:46; Status DC Sodium Bicarbonate (Sodium Bicarbonate 8.4% Inj) 50 meq ONCE ONCE SLOW IVP Last administered on 10/23/16 14:44; Start 10/23/16 at 14:45; Stop 10/23/16 at 14:46; Status DC Sodium Polystyrene Sulfonate 15 gm 15 gm ONCE ONCE PO Last administered on 14:44; Start 10/23/16 at 14:45; Stop 10/23/16 at 14:46; Status DC Vancomycin HCl 1000 mg/Sodium Chloride 250 ml @ 250 mls/hr ONCE ONCE IV Last administered on 10/23/16 15:35; Start 10/23/16 at 15:30; Stop 10/23/16 at 16:29 ; Status DC Ceftriaxone Sodium/Sodium Chloride (Rocephin Inj/NS Inj) 100 ml @ 200 mls/hr ONCE ONCE IV ; Start 10/23/16 at 15:45; Stop 10/23/16 at 16:14; Status Cancel Dextrose (D50w (Vial) Inj) 25 ml UNSCH PRN IV PUSH HYPOGLYCEMIA-SEE COMMENTS; Start 10/23/16 at 15:45; Stop 10/26/16 at 09:05; Status DC Glucagon (Glucagon Inj) 1 mg UNSCH PRN OTHER HYPOGLYCEMIA-SEE COMMENTS; Start 10/23/16 at 15:45; Stop 10/26/16 at 09:05; Status DC Insulin Aspart (NovoLOG SUPPLEMENTAL SCALE) 1 ACHS SLIDING SCALE SQ Last administered on 10/23/16 16:36; Start 10/23/16 at 16:00; Stop 10/24/16 at 12:00 ; Status DC Nitroglycerin 0.4 mg 0.4 mg Q5M PRN SL X 3 doses for chest pain; Start at 16:00 Piperacillin Sod/ Tazobactam Sod (Zosyn 3.375 Gm Premix) 50 ml @ 100 mls/hr Q6H IV Last administered on 10/24/16 06:52; Start 10/23/16 at 18:00; Stop at 09:53; Status DC Guaifenesin/ Codeine Phosphate (Robitussin Ac 200-20 Mg/10 ml Liq) 10 ml Q4H PRN PO COUGH Last administered on 10/28/16 22:09; Start 10/23/16 at 16:00 Guaifenesin 600 mg 600 mg BID PO Last administered on 11/02/16 08:05; Start at 21:00 Sodium Chloride (NS 1000 ml Inj) 1,000 ml @ 100 mls/hr Q10H IV Last administered on 10/23/16 18:09; Start 10/23/16 at 15:48; Stop 10/24/16 at 07:06 ; Status DC Sodium Chloride (NS Flush) 2 ml UNSCH PRN IV FLUSH FLUSH AFTER USING IV ACCESS Last administered on 10/29/16 12:41; Start 10/23/16 at 16:00 Sodium Chloride (NS Flush) 2 ml BID IV FLUSH Last administered on 11/02/16 08: 06; Start 10/23/16 at 21:00 Ondansetron HCl (Zofran Inj) 4 mg Q6H PRN IVP NAUSEA OR VOMITING Last administered on 11/01/16 04:56; Start 10/23/16 at 16:00 Bisacodyl (Dulcolax Supp) 10 mg DAILY PRN RECTAL CONSTIPATION; Start 10/23/16 at 16:00 Heparin Sodium (Porcine) (Heparin Inj) 5,000 units Q12H SQ Last administered on 11/02/16 06:00; Start 10/23/16 at 18:00 Acetaminophen (Tylenol) 650 mg Q6H PRN PO PAIN SCALE 1 TO 2, T > 101; Start at 16:00 Acetaminophen/ Hydrocodone Bitart (Parks 5-325 Mg) 1 tab Q4H PRN PO PAIN SCALE 3 TO 5 Last administered on 10/28/16 14:37; Start 10/23/16 at 16:00 Acetaminophen/ Hydrocodone Bitart (Parks 7.5-325 Mg) 1 tab Q4H PRN PO PAIN SCALE 6 TO 10 Last administered on 11/02/16 11:04; Start 10/23/16 at 16:00 Morphine Sulfate (Morphine Inj) 1 mg Q3H PRN IV BREAKTHROUGH PAIN Last administered on 10/29/16 10:39; Start 10/23/16 at 16:00; Stop 10/30/16 at 11:21 ; Status DC Naloxone HCl (Narcan Inj) 0.4 mg UNSCH PRN IV SEE LABEL COMMENTS; Start at 16:00 Insulin Detemir (Levemir Inj) 37 units HS SQ Last administered on 10/23/16 22: 27; Start 10/23/16 at 21:00; Stop 10/24/16 at 08:37; Status DC Insulin Human Regular (NovoLIN R INJ) 6 units ONCE ONCE SQ ; Start 10/23/16 at 16:15; Stop 10/23/16 at 16:16; Status DC Hydralazine HCl (Apresoline Inj) 10 mg Q6H PRN IV SBP> OR = 180, DBP> OR = 100 ; Start 10/23/16 at 19:15 Clonidine (Catapres) 0.1 mg Q6H PRN PO SBP> OR = 180, DBP> OR = 100; Start at 19:15 Sodium Polystyrene Sulfonate (Kayexalate Liq) 15 gm QID PO Last administered on 10/24/16 13:43; Start 10/23/16 at 21:00; Stop 10/24/16 at 13:01; Status DC Insulin Human Regular (NovoLIN R INJ) 10 units ONCE ONCE IV PUSH Last administered on 10/23/16 19:15; Start 10/23/16 at 19:15; Stop 10/23/16 at 19:40 ; Status DC Dextrose (D50w (Vial) Inj) 50 ml ONCE ONCE IV PUSH Last administered on 20:09; Start 10/23/16 at 19:15; Stop 10/23/16 at 19:40; Status DC Calcium Gluconate (Calcium Gluconate Inj) 1 gm ONCE ONCE IV Last administered on 10/23/16 20:09; Start 10/23/16 at 19:15; Stop 10/23/16 at 19:41; Status DC Albuterol Sulfate (Albuterol Concentrated Neb) 10 mg ONCE ONCE INH Last administered on 10/23/16 21:55; Start 10/23/16 at 19:15; Stop 10/23/16 at 19:41 ; Status DC Insulin Human Regular (NovoLIN R INJ) 10 units ONCE ONCE IV PUSH Last administered on 10/24/16 05:17; Start 10/24/16 at 03:45; Stop 10/24/16 at 03:47 ; Status DC Dextrose (D50w (Vial) Inj) 50 ml ONCE ONCE IV PUSH Last administered on 05:18; Start 10/24/16 at 03:45; Stop 10/24/16 at 03:47; Status DC Calcium Gluconate (Calcium Gluconate Inj) 1 gm ONCE ONCE IV PUSH Last administered on 10/24/16 05:19; Start 10/24/16 at 03:45; Stop 10/24/16 at 03:47 ; Status DC Sodium Polystyrene Sulfonate (Kayexalate Enema) 30 gm ONCE ONCE RECTAL ; Start 10/24/16 at 03:45; Stop 10/24/16 at 03:46; Status Cancel Sodium Polystyrene Sulfonate (Kayexalate Liq) 30 gm ONCE ONCE RECTAL Last administered on 10/24/16 05:20; Start 10/24/16 at 05:00; Stop 10/24/16 at 05:01 ; Status DC Furosemide (Lasix Inj) 40 mg ONCE ONCE IV PUSH Last administered on 10/24/16 09:08; Start 10/24/16 at 07:15; Stop 10/24/16 at 07:29; Status DC Succinylcholine Chloride (Quelicin Inj) 200 mg STK-MED ONCE .ROUTE Last administered on 10/24/16 09:09; Start 10/24/16 at 07:37; Stop 10/24/16 at 07:38 ; Status DC Etomidate 20 mg 20 mg STK-MED ONCE .ROUTE Last administered on 10/24/16 09:08 ; Start 10/24/16 at 07:38; Stop 10/24/16 at 07:39; Status DC Propofol (Diprivan 1000 Mg/100ml Inj) 100 ml @ 0 mls/hr TITRATE IV Last administered on 10/27/16 06:31; Start 10/24/16 at 08:45; Stop 10/27/16 at 13:41 ; Status DC Insulin Human Regular (NovoLIN R INJ) 8 units ONCE ONCE IV PUSH Last administered on 10/24/16 09:37; Start 10/24/16 at 08:45; Stop 10/24/16 at 08:46 ; Status DC Dextrose (D50w (Syr) Inj) 50 ml ONCE ONCE IV Last administered on 10/24/16 09 :37; Start 10/24/16 at 08:45; Stop 10/24/16 at 08:46; Status DC Sodium Bicarbonate 50 meq 50 meq ONCE ONCE IV PUSH Last administered on 09:38; Start 10/24/16 at 08:45; Stop 10/24/16 at 08:46; Status DC Calcium Gluconate/ Sodium Chloride (Calcium Gluconate Inj/NS Inj) 110 ml @ 110 mls/hr ONCE ONCE IV Last administered on 10/24/16 09:09; Start 10/24/16 at 09 :00; Stop 10/24/16 at 09:59; Status DC Sodium Polystyrene Sulfonate 15 gm 15 gm ONCE ONCE PO ; Start 10/24/16 at 08:45 ; Stop 10/24/16 at 08:46; Status DC Piperacillin Sod/ Tazobactam Sod (Zosyn 2.25 Gm Premix) 50 ml @ 100 mls/hr Q6HR IV Last administered on 10/28/16 05:14; Start 10/24/16 at 12:00; Stop at 07:39; Status DC Insulin Aspart (NovoLOG SUPPLEMENTAL SCALE) 1 Q6H SQ Last administered on 05:21; Start 10/24/16 at 17:00; Stop 10/26/16 at 08:58; Status DC Albuterol/ Ipratropium (Duoneb Neb) 1 ampule Q6HR NEB NEB Last administered on 10/27/16 09:34; Start 10/24/16 at 13:00; Stop 10/27/16 at 13:49; Status DC Pantoprazole Sodium (Protonix Inj) 40 mg Q24H IV PUSH Last administered on 10/29 12:41; Start 10/24/16 at 13:00; Stop 10/30/16 at 11:27; Status DC Furosemide (Lasix Inj) 40 mg BID@09,18 IV PUSH Last administered on 10/25/16 08:49; Start 10/24/16 at 13:00; Stop 10/25/16 at 09:20; Status DC Miscellaneous Information Patient in critical care unit? Ass... [id number] .[id number] ; Start 10/24/16 at 19:30 Chlorhexidine Gluconate (Chlorhexidine 2% Cloth) 3 pack DAILY@04 TOPICAL Last administered on 10/29/16 04:00; Start 10/25/16 at 04:00; Stop 10/29/16 at 04:01 ; Status DC Chlorhexidine Gluconate (Chlorhexidine 2% Cloth) 3 pack UNSCH PRN TOPICAL HYGIENIC CARE; Start 10/24/16 at 19:30; Stop 10/29/16 at 19:18; Status DC Furosemide (Lasix Inj) 40 mg DAILY IV PUSH Last administered on 11/02/16 08:05 ; Start 10/26/16 at 09:00 Nicotine (Habitrol 7 Mg Patch.24 Hr) 1 patch DAILY T-DERMAL Last administered on 11/02/16 08:05; Start 10/25/16 at 16:45 Miscellaneous Information 1 DAILY T-DERMAL Last administered on 11/02/16 08:05 ; Start 10/26/16 at 09:00 Linezolid (Zyvox) 600 mg Q12HR PO Last administered on 11/02/16 08:05; Start 10/26/16 at 09:00 Dextrose (D50w (Vial) Inj) 25 ml UNSCH PRN IV PUSH HYPOGLYCEMIA-SEE COMMENTS; Start 10/26/16 at 09:00 Glucagon (Glucagon Inj) 1 mg UNSCH PRN OTHER HYPOGLYCEMIA-SEE COMMENTS; Start 10/26/16 at 09:00 Insulin Human Regular (NovoLIN R SUPPLEMENTAL SCALE) 1 Q6H SQ ; Start 10/26/16 at 09:00; Stop 10/26/16 at 16:56; Status DC Insulin Human Regular (NovoLIN R SUPPLEMENTAL SCALE) 1 Q6H SQ Last administered on 11/01/16 23:55; Start 10/26/16 at 17:00 Albuterol/ Ipratropium (Duoneb Neb) 1 ampule Q4HR NEB NEB Last administered on 10/31/16 15:30; Start 10/27/16 at 16:00; Stop 10/31/16 at 16:00; Status DC Albuterol/ Ipratropium 1 ampule 1 ampule Q2HR NEB PRN NEB SHORTNESS OF BREATH; Start 10/27/16 at 13:45 Dexmedetomidine HCl/Sodium Chloride (Precedex Inj/NS 250 ml Inj) 250 ml @ 0 mls/ hr TITRATE IV Last administered on 10/28/16 05:33; Start 10/27/16 at 21:30; Stop 10/28/16 at 12:10; Status DC Hydromorphone HCl (Dilaudid Pf Inj) 0.5 mg Q3HR PRN IV PUSH BREAKTHROUGH PAIN Last administered on 11/02/16 11:04; Start 10/30/16 at 11:15 Pantoprazole Sodium (Protonix) 40 mg Q24H PO Last administered on 11/01/16 13: 53; Start 10/30/16 at 13:00 Diltiazem HCl (Cardizem Inj) 10 mg ONCE ONCE IV Last administered on 23:51; Start 11/01/16 at 23:45; Stop 11/01/16 at 23:46; Status DC A/P Assessment and Plan A/P 1. VDRF/ MRSA pneumonia - Extubated 10/27 keep on oxygen to keep O2 sat > 90%- continue with neb treatment-BiPaP as needed. continue Zyvox. pulmonary following. 2. Acute renal failure-improved. renal function stable- renal sonogram with no hydronephrosis- nephrology following. 3. Hyperkalemia-resolved 4. Encephalopathy multifactorial likely secondary to CO2 narcosis and uremia- improved. 5. atrial fibrillation with rapid ventricular response-HR better- start po cardizem- will consult cardiology. 6. Mild elevation in troponin likely due to respiratory failure 7. Leukocytosis-has resolved. 8. Hypertension- start on cardizem with close monitoring of BP. 9. Hyperglycemia with underlying history of diabetes mellitus- continue accu- check with SSI. 10. Cellulitis of the lower extremities- continue Abx- wound care following. 11. Obstructive sleep apnea; BiPaP as needed. DVT/ GI prophylaxis with subq Heparin/ PPI. continue PT. d/w the daughter in detail today. full code for now. will consult palliative care per our discussion. Discharge Planning not ready for discharge. Lety Machado MD Nov 02, 2016 11:37
[2016-11-02] MEDS: PANTOPRAZOLE SOD 40 MG DELAYED RELEASE TAB PO SCH (12:32)
[2016-11-02] MEDS: DILTIAZEM HCL 30 MG TAB PO SCH ×3 (12:32→23:02)
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
--- NOTE | 2016-11-02 20:49 | HHI.PR ---
Subjective Remarks 71 YOWF with COPD,RF, obesity Weaned top NC No fever has cough, occ sputum On NC " Can go home now" Objective Vital Signs Vital Signs Date Time Temp Pulse Resp B/P Pulse Ox O2 Delivery O2 Flow Rate FiO2 11/02/16 18:00 110 11/02/16 17:00 91 11/02/16 16:00 99 11/02/16 15:00 98.0 97 16 127/59 94 11/02/16 15:00 91 11/02/16 15:00 93 Nasal Cannula 2.00 11/02/16 14:00 98 11/02/16 13:00 100 11/02/16 12:00 101 11/02/16 11:00 103 11/02/16 11:00 93 Nasal Cannula 2.00 11/02/16 11:00 98.3 107 20 137/60 93 11/02/16 10:00 106 11/02/16 09:01 100 Nasal Cannula 3.00 11/02/16 09:00 112 11/02/16 08:00 92 11/02/16 07:00 97 11/02/16 07:00 100 Nasal Cannula 2.00 11/02/16 07:00 98.2 98 18 122/58 100 11/02/16 06:35 Nasal Cannula 2.00 11/02/16 06:00 99 11/02/16 05:01 100 35 11/02/16 05:00 93 11/02/16 04:00 99 Bi-Pap 35 11/02/16 04:00 96 11/02/16 04:00 98.3 96 16 125/72 99 11/02/16 02:00 98 11/02/16 00:00 120 11/02/16 00:00 98.4 120 16 117/66 98 11/02/16 00:00 98 Bi-Pap 35 11/01/16 22:40 98 BiPAP 35 11/01/16 20:53 99 35 I/O 11/01/16 11/01/16 11/01/16 11/02/16 11/02/16 11/02/16 07:00 15:00 23:00 07:00 15:00 23:00 Intake Total 420 ml 100 ml 930 ml Output Total 900 ml 950 ml 450 ml 1000 ml Balance -900 ml -530 ml -350 ml -70 ml Intake Oral 420 ml 100 ml 930 ml Output Urine Total 900 ml 950 ml 450 ml 1000 ml # Bowel Movements 0 Result Diagram: 10/29/16 0532 11/01/16 0602 Objective Remarks GENERAL: Obese female mild sob. SKIN: Warm and dry. HEAD: Normocephalic. EYES: No scleral icterus. No injection or drainage. NECK: Supple, trachea midline. No JVD or lymphadenopathy. CARDIOVASCULAR: Regular rate and rhythm without murmurs, gallops, or rubs. RESPIRATORY: Breath sounds equal bilaterally. No accessory muscle use. GASTROINTESTINAL: Abdomen soft, non-tender, nondistended. MUSCULOSKELETAL: No cyanosis, or edema. BACK: Nontender without obvious deformity. No CVA tenderness. A/P Assessment and Plan hypercapnoic RF COPD DM Nicotine use Obesity HTN PLAN: Cont BIPAP prn and at night Aerosol nebs Suplement 02 Monitor BS and Pedro Loera MD Nov 02, 2016 20:49
--- NOTE | 2016-11-02 21:05 | PD.CONS ---
HPI Service Cardiology Consult Requested By IM Reason for Consult Afib Primary Care Physician Handy Nails MD History of Present Illness 71 y/o F with past medical history of hypertension, diabetes mellitus, hyperlipidemia, obstructive sleep apnea on C-PAP and CVA with residual left- sided weakness. She initially she presented to [facility] for evaluation of an irregular heartbeat per medical records. She was found to be in acute renal failure, hyperkalemia, leukocytosis/PNA and hypercapnic respiratory failure. She was intubated and transferred to [facility] [place]. She was been successfully treated for PNA, extubated, doing better and transferred to [facility]. Cardiology has been consulted for asymptomatic episodes of paroxysmal atrial fibrillation. Review of Systems Consitutional: DENIES: Fatigue, Fever, Chills, Weight gain, Weight loss Eyes: DENIES: Amaurosis Fugax, Change in vision HEENT: DENIES: Lightheadedness, Change in hearing Respiratory: DENIES: See HPI, Cough, Snoring, Shortness of breath, Wheezing, Sputum production Cardiovascular: DENIES: See HPI, Chest pain, Palpitations, Syncope, Tachycardia Gastrointestinal: DENIES: Nausea, Vomiting, Change in bowel habits, Reflux, Bloody stools, Melena Genitourinary: DENIES: Urinary incontinence, Difficulty voiding Integumentary: DENIES: Rash Neurologic: DENIES: Tingling or numbness, Memory problems, Poor Balance, Stroke symptoms Musculoskeletal: DENIES: Joint pain, Muscle pain, Limited range of motion, Back pain Psychiatric: DENIES: Anxiety, Depression, Sleep disturbances Hematologic: DENIES: Bruising tendencies, Bleeding tendencies Endocrine: DENIES: Weight gain, Weight loss, Thyroid disease Past Family Social History Allergies: Coded Allergies: *MDRO Multi-Drug Resistant Organism (Verified Adverse Reaction, Unknown, ) MRSA PCR Screen POSITIVE - 10/24/2016 MRSA (sputum)-10/24/16 Past Medical History 1. Hypertension 2. Diabetes 3. Hyperlipidemia 4. History of CVA with residual left-sided weakness. 5. Obstructive sleep apnea Past Surgical History 1. Previous hernia repair. 2. Previous appendectomy. 3. Cholecystectomy 4. Right hip replacement Reported Medications Reported Meds & Active Scripts Active Reported [place] (Hydrocodone-Acetaminophen) 7.5-325 mg Tab 1 Tab PO Q4H PRN Furosemide 20 Mg Tab Unknown Dose PO DAILY Lantus Inj (Insulin Glargine) 1,000 Unit/10 Ml Vial 37 Units SQ HS Active Ordered Medications Current Medications Medications (Trade) Dose Ordered Sig/Meme Route Start Time Stop Time Status Last Admin (NS Flush) 2 ml UNSCH PRN IVF 10/23/16 12:15 (Nitrostat Sl) 0.4 mg Q5M PRN SL 10/23/16 16:00 (Robitussin Ac 200-20 Mg/10 ml Liq) 10 ml Q4H PRN PO 10/23/16 16:00 10/28/16 22:09 (Mucinex Er) 600 mg BID PO 10/23/16 21:00 11/02/16 20:39 (NS Flush) 2 ml UNSCH PRN IV FLUSH 10/23/16 16:00 10/29/16 12:41 (NS Flush) 2 ml BID IV FLUSH 10/23/16 21:00 11/02/16 20:39 (Zofran Inj) 4 mg Q6H PRN IVP 10/23/16 16:00 11/01/16 04:56 (Dulcolax Supp) 10 mg DAILY PRN RECTAL 10/23/16 16:00 (Heparin Inj) 5,000 units Q12H SQ 10/23/16 18:00 11/02/16 17:42 (Tylenol) 650 mg Q6H PRN PO 10/23/16 16:00 ([place] 5-325 Mg) 1 tab Q4H PRN PO 10/23/16 16:00 10/28/16 14:37 ([place] 7.5-325 Mg) 1 tab Q4H PRN PO 10/23/16 16:00 11/02/16 20:40 (Narcan Inj) 0.4 mg UNSCH PRN IV 10/23/16 16:00 (Apresoline Inj) 10 mg Q6H PRN IV 10/23/16 19:15 (Catapres) 0.1 mg Q6H PRN PO 10/23/16 19:15 Miscellaneous Information Patient in critical care unit? Ass... Q361D .XX 10/24/16 19:30 (Lasix Inj) 40 mg DAILY IV PUSH 10/26/16 09:00 11/02/16 08:05 (Habitrol 7 Mg Patch.24 Hr) 1 patch DAILY T-DERMAL 10/25/16 16:45 11/02/16 08:05 Miscellaneous Information 1 DAILY T-DERMAL 10/26/16 09:00 11/02/16 08:05 (Zyvox) 600 mg Q12HR PO 10/26/16 09:00 11/02/16 20:39 (D50w (Vial) Inj) 25 ml UNSCH PRN IV PUSH 10/26/16 09:00 (Glucagon Inj) 1 mg UNSCH PRN OTHER 10/26/16 09:00 (NovoLIN R SUPPLEMENTAL SCALE) 1 Q6H SQ 10/26/16 17:00 11/02/16 11:20 (Dilaudid Pf Inj) 0.5 mg Q3HR PRN IV PUSH 10/30/16 11:15 11/02/16 11:04 (Protonix) 40 mg Q24H PO 10/30/16 13:00 11/02/16 12:32 (Cardizem) 30 mg Q8HR PO 11/02/16 12:00 11/02/16 20:42 Social History History of chronic tobacco use per records. No history of alcohol or illicit drug use. Physical Exam Vital Signs Vital Signs Date Time Temp Pulse Resp B/P Pulse Ox O2 Delivery O2 Flow Rate FiO2 11/02/16 18:00 110 11/02/16 17:00 91 11/02/16 16:00 99 11/02/16 15:00 98.0 97 16 127/59 94 11/02/16 15:00 91 11/02/16 15:00 93 Nasal Cannula 2.00 11/02/16 14:00 98 11/02/16 13:00 100 11/02/16 12:00 101 11/02/16 11:00 103 11/02/16 11:00 93 Nasal Cannula 2.00 11/02/16 11:00 98.3 107 20 137/60 93 11/02/16 10:00 106 11/02/16 09:01 100 Nasal Cannula 3.00 11/02/16 09:00 112 11/02/16 08:00 92 11/02/16 07:00 97 11/02/16 07:00 100 Nasal Cannula 2.00 11/02/16 07:00 98.2 98 18 122/58 100 11/02/16 06:35 Nasal Cannula 2.00 11/02/16 06:00 99 11/02/16 05:01 100 35 11/02/16 05:00 93 11/02/16 04:00 99 Bi-Pap 35 11/02/16 04:00 96 11/02/16 04:00 98.3 96 16 125/72 99 11/02/16 02:00 98 11/02/16 00:00 120 11/02/16 00:00 98.4 120 16 117/66 98 11/02/16 00:00 98 Bi-Pap 35 11/01/16 22:40 98 BiPAP 35 11/01/16 20:53 99 35 Physical Exam GENERAL: Well-nourished, well-developed patient. SKIN: Warm and dry. HEAD: Normocephalic. EYES: No scleral icterus. No injection or drainage. NECK: Supple, trachea midline. No JVD or lymphadenopathy. CARDIOVASCULAR: Regular rate and rhythm without murmurs, gallops, or rubs. RESPIRATORY: Breath sounds equal bilaterally. No accessory muscle use. GASTROINTESTINAL: Abdomen soft, non-tender, nondistended. EXTREMITIES: No cyanosis, or edema. . Laboratory Laboratory Tests Test 11/01/16 11/01/16 06:02 11:15 Sodium Level 138 MEQ/L Potassium Level 3.6 MEQ/L Chloride Level 98 MEQ/L Carbon Dioxide Level 30.5 MEQ/L Anion Gap 10 MEQ/L Blood Urea Nitrogen 73 MG/DL Creatinine 2.21 MG/DL Estimat Glomerular Filtration 22 ML/MIN Rate Random Glucose 150 MG/DL Calcium Level 8.6 MG/DL Blood Gas Puncture Site RT RADIAL Blood Gas Patient Temperature 98.6 Blood Gas HCO3 30 mmol/L Blood Gas Base Excess 3.7 mmol/L Blood Gas Oxygen Saturation 91 % Arterial Blood pH 7.27 Arterial Blood Partial 68 mmHg Pressure CO2 Arterial Blood Partial 82 mmHg Pressure O2 Arterial Blood Oxygen Content 13.0 Vol % Arterial Blood 2.0 % Carboxyhemoglobin Arterial Blood Methemoglobin 1.3 % Blood Gas Hemoglobin 10.1 G/DL Oxygen Delivery Device NASAL CANNULA Blood Gas Liter Flow 2 L/M Result Diagram: 10/29/16 0532 11/01/16 0602 Imaging Last Impressions Chest X-Ray 10/27/16 0000 Signed Impressions: Service Date/Time: Thursday, October 27, 2016 12:27 - CONCLUSION: 1. ET tube in a somewhat low position approximately 1.6 cm above the kimberlyn. This could be pulled back to a better position by pulling it back 1 to 2 cm. 2. Suspected atelectasis at the right lung base. King Brown MD Renal Ultrasound 10/25/16 0000 Signed Impressions: Service Date/Time: October 10:11 - CONCLUSION: 1. Lower pole right renal cyst measuring 4.2 x 3.3 x 4.6 cm. 2. No hydronephrosis, solid mass or calcified calculus. 3. Poor visualization of the bladder due to nondistention. Jaime Norris MD Head CT 10/24/16 0000 Signed Impressions: Service Date/Time: Monday, October 24, 2016 16:56 - CONCLUSION: 1. No acute findings in the brain. 2. Right paranasal sinus disease with air-fluid levels. Anthony Lockhart MD Lower Extremity Ultrasound 10/23/16 0000 Signed Impressions: Service Date/Time: Sunday, October 23, 2016 13:47 - CONCLUSION: The study is negative for deep venous thrombosis bilateral lower extremity. Anthony Lockhart MD Assessment and Plan Problem List: (1) PAROXYSMAL ATRIAL FIBRILLATION Assessment and Plan: Newly diagnosed atrial fibrillation. Asymptomatic. In the setting of PNA/Respiratory failure Echocardiogram unremarkable. Rate controlled CHADS2 score 4. Recommendations: 1. Increase Cardizem 60mg PO Q6H 2. Start oral anticoagulation 3. Follow up with cardiology when discharge Thank you for the opportunity to participate in the care of this patient (2) Elevated troponin I level (3) Encephalopathy (4) Leukocytosis (5) Acute worsening of stage 3 chronic kidney disease Manfred El MD Nov 02, 2016 21:05
[2016-11-03] VITALS (21 sets, daily range): BP systolic 121–159; BP diastolic 49–93; PULSE 86–157; RESP 18–20; TEMP 97.8–98.9; O2SAT 95–99
[2016-11-03] MEDS: HEPARIN SODIUM - SQ 10,000 UNITS/ML VIAL SQ SCH ×2 (05:22→17:34)
[2016-11-03] MEDS: DILTIAZEM HCL 30 MG TAB PO SCH ×3 (05:22→21:41)
[2016-11-03] MEDS: ACETAMINOPHEN/HYDROcodone 325 MG/7.5 MG TAB PO PRN ×2 (05:40→14:48)
[2016-11-03] MEDS: INSULIN NovoLIN REGULAR SUPPLEMENTAL SCALE SQ SCH ×4 (05:41→23:00)
--- NOTE | 2016-11-03 08:35 | HHI.PR ---
Subjective Remarks In no acute distress. Alert. Denies chest pain, SOB, N/V/D/C. D/W nursing, asking if patient can be transferred to [facility] to help with bed availability. Needs BIPAP at night. Objective Vital Signs Date Time Temp Pulse Resp B/P Pulse Ox O2 Delivery O2 Flow Rate FiO2 11/03/16 06:00 99 11/03/16 05:00 96 11/03/16 04:27 98 30 11/03/16 04:27 98 BiPAP 30 11/03/16 04:00 98 11/03/16 04:00 98.6 98 18 121/57 96 11/03/16 04:00 Bi-Pap 11/03/16 03:00 95 11/03/16 02:00 96 11/03/16 01:00 90 11/03/16 00:00 86 11/03/16 00:00 98.0 86 18 126/49 97 11/03/16 00:00 Bi-Pap 11/02/16 23:00 90 11/02/16 22:00 96 11/02/16 21:43 96 30 11/02/16 21:00 100 11/02/16 20:00 92 11/02/16 20:00 98.2 92 20 142/66 92 11/02/16 20:00 Nasal Cannula 2.00 11/02/16 18:00 110 11/02/16 17:00 91 11/02/16 16:00 99 11/02/16 15:00 98.0 97 16 127/59 94 11/02/16 15:00 91 11/02/16 15:00 93 Nasal Cannula 2.00 11/02/16 14:00 98 11/02/16 13:00 100 11/02/16 12:00 101 11/02/16 11:00 103 11/02/16 11:00 93 Nasal Cannula 2.00 11/02/16 11:00 98.3 107 20 137/60 93 11/02/16 10:00 106 11/02/16 09:01 100 Nasal Cannula 3.00 11/02/16 09:00 112 I/O 11/02/16 11/02/16 11/02/16 11/03/16 11/03/16 11/03/16 07:00 15:00 23:00 07:00 15:00 23:00 Intake Total 100 ml 930 ml 490 ml Output Total 450 ml 1000 ml 850 ml Balance -350 ml -70 ml -360 ml Intake Oral 100 ml 930 ml 480 ml IV Total 10 ml Output Urine Total 450 ml 1000 ml 850 ml # Bowel Movements 0 0 Result Diagram: 11/01/16 0602 Imaging Last Impressions Chest X-Ray 10/27/16 0000 Signed Impressions: Service Date/Time: Thursday, October 27, 2016 12:27 - CONCLUSION: 1. ET tube in a somewhat low position approximately 1.6 cm above the kmiberlyn. This could be pulled back to a better position by pulling it back 1 to 2 cm. 2. Suspected atelectasis at the right lung base. King Brown MD Renal Ultrasound 10/25/16 0000 Signed Impressions: Service Date/Time: October 10:11 - CONCLUSION: 1. Lower pole right renal cyst measuring 4.2 x 3.3 x 4.6 cm. 2. No hydronephrosis, solid mass or calcified calculus. 3. Poor visualization of the bladder due to nondistention. Jaime Norris MD Head CT 10/24/16 0000 Signed Impressions: Service Date/Time: Monday, October 24, 2016 16:56 - CONCLUSION: 1. No acute findings in the brain. 2. Right paranasal sinus disease with air-fluid levels. Anthony Lockhart MD Lower Extremity Ultrasound 10/23/16 0000 Signed Impressions: Service Date/Time: Sunday, October 23, 2016 13:47 - CONCLUSION: The study is negative for deep venous thrombosis bilateral lower extremity. Anthony Lockhart MD Objective Remarks GENERAL: in no acute distress CARDIOVASCULAR: Regular rate and irregular rhythm without murmurs, gallops, or rubs. RESPIRATORY: diminished air entry bilaterally GASTROINTESTINAL: Abdomen soft, non-tender, nondistended. Normal, active bowel sounds MUSCULOSKELETAL: Extremities with trace bilateral pedal edema NEURO: awake and alert today. A/P Problem List: (1) Diabetes mellitus ICD Code: E11.9 (2) PAROXYSMAL ATRIAL FIBRILLATION ICD Code: I48.0 (3) LAXMI on CPAP ICD Code: G47.33 (4) HTN (hypertension) ICD Code: I10 (5) History of CVA with residual deficit ICD Code: I69.30 (6) MRSA (methicillin resistant staphylococcus aureus) pneumonia ICD Code: J15.212 Assessment and Plan A/P Hypertension Diabetes mellitus Hyperlipidemia Obstructive sleep apnea on C-PAP CVA with residual left-sided weakness Paroxysmal atrial fibrillation 1. VDRF/ MRSA pneumonia - Extubated 10/27 keep on oxygen to keep O2 sat > 90%- continue with neb treatment-BiPaP as needed. continue Zyvox. pulmonary following. 2. Acute renal failure-improved. renal function stable- renal sonogram with no hydronephrosis- nephrology following. 3. Hyperkalemia-resolved 4. Encephalopathy multifactorial likely secondary to CO2 narcosis and uremia- improved. 5. Atrial fibrillation with rapid ventricular response-HR better- start po cardizem- Consulted cardiology. Echocardiogram unremarkable. Rate controlled. CHADS2 score 4. Increased Cardizem to 60mg PO Q6H, started oral anticoagulation, follow up with cardiology when discharged 6. Mild elevation in troponin likely due to respiratory failure 7. Leukocytosis- resolved. 8. Hypertension- start on Cardizem with close monitoring of BP. 9. Hyperglycemia with underlying history of diabetes mellitus- continue accu- check with SSI. 10. Cellulitis of the lower extremities- continue Abx- wound care following. 11. Obstructive sleep apnea; BiPaP as needed. DVT/ GI prophylaxis with subq Heparin/ PPI. continue PT. Discussion with the daughter on 11/02 full code for now. Consulted palliative care Dispo: Tx to 4 [facility] today Discharge Planning not ready for discharge Problem Qualifiers (1) Diabetes mellitus: Jil Robertson MD Nov 03, 2016 08:35 Jil Robertson MD Nov 03, 2016 08:35
[2016-11-03] MEDS: REMOVE OLD PATCH T-DERMAL SCH (09:00)
--- NOTE | 2016-11-03 09:13 | HHI.NPPN ---
Subjective General Problems: Anemia, Edema Renal Failure: Chronic, Acute, Stage III History of Present Illness 71-year-old female with a past medical history of hypertension, diabetes mellitus, hyperlipidemia, chronic obstructive pulmonary disease, cerebrovascular accident, transferred here from [facility], came to the hospital because of left-sided weakness. I was called to see the patient because of elevated BUN and creatinine. The patient has a creatinine of 2.0 on presentation. She previously has a creatinine of 1.5-1.6 but this was two years ago. Additional Remarks Developed atrial fibrillation last night, given Cardizem. Notes were reviewed. Review of Systems General General Remarks Intubated and sedated. Objective Data Data 11/02/16 11/03/16 19:00 07:00 Intake Total 930 ml 490 ml Output Total 1000 ml 850 ml Balance -70 ml -360 ml Intake Oral 930 ml 480 ml IV Total 10 ml Output Urine Total 1000 ml 850 ml # Bowel Movements 0 Vital Signs Date Time Temp Pulse Resp B/P Pulse Ox O2 Delivery O2 Flow Rate FiO2 11/03/16 08:00 100 11/03/16 07:00 98.5 100 18 136/93 97 11/03/16 07:00 100 11/03/16 07:00 2 Nasal Cannula 11/03/16 06:00 99 11/03/16 05:00 96 11/03/16 04:27 98 30 11/03/16 04:27 98 BiPAP 30 11/03/16 04:00 98 11/03/16 04:00 98.6 98 18 121/57 96 11/03/16 04:00 Bi-Pap 11/03/16 03:00 95 11/03/16 02:00 96 11/03/16 01:00 90 11/03/16 00:00 86 11/03/16 00:00 98.0 86 18 126/49 97 11/03/16 00:00 Bi-Pap 11/02/16 23:00 90 11/02/16 22:00 96 11/02/16 21:43 96 30 11/02/16 21:00 100 11/02/16 20:00 92 11/02/16 20:00 98.2 92 20 142/66 92 11/02/16 20:00 Nasal Cannula 2.00 11/02/16 18:00 110 11/02/16 17:00 91 11/02/16 16:00 99 11/02/16 15:00 98.0 97 16 127/59 94 11/02/16 15:00 91 11/02/16 15:00 93 Nasal Cannula 2.00 11/02/16 14:00 98 11/02/16 13:00 100 11/02/16 12:00 101 11/02/16 11:00 103 11/02/16 11:00 93 Nasal Cannula 2.00 11/02/16 11:00 98.3 107 20 137/60 93 11/02/16 10:00 106 -: 11/01/16 0602 Physical Exam General Appearance: No Acute Distress, Anxious Eyes Eye Exam: Pupils Equal Throat Throat Exam: Oral Mucosa [place] & Moist Neck Neck Exam: Neck Supple Pulmonary Resp Exam: No Distress, Rhonchi, Decreased Bases, Diminished Breath Sounds Cardiology CV Exam: Regular, Normal Sinus Rhythm Gastrointestinal/Abdomen GI Exam: Soft, Non-Tender, Bowel Sounds Present, Distended Extremeties Extremities Exam: Moderate Edema, Pitting Edema, Dependent Edema (Both legs has erythema and covered with dressing.) Neurologic Neuro Exam: Alert, Awake Assessment/Plan Assessment Summary: HIRAM/Acute Renal Failure, Fluid/Volume Overload, CKD Stage III Problem List: (1) Renal insufficiency (2) Leukocytosis (3) Encephalopathy (4) Diabetes mellitus (5) Acute worsening of stage 3 chronic kidney disease Plan Non oliguric. On Lasix once a day. Renal function is better. BP is stable, Avoid nephrotoxic agents. Palliative care to see. Problem Qualifiers (1) Diabetes mellitus: Krunal Montalvo MD Nov 03, 2016 09:13
[2016-11-03] MEDS: SODIUM CHLORIDE 0.9% FLUSH 10 ML FLUSH IV FLUSH SCH ×2 (09:38→21:41)
[2016-11-03] MEDS: NICOTINE 7 MG/24 HR PATCH T-DERMAL SCH (09:39)
[2016-11-03] MEDS: LINEZOLID 600 MG TAB PO SCH ×2 (09:39→21:41)
[2016-11-03] MEDS: guaiFENesin E.R. 600 MG TAB PO SCH ×2 (09:39→21:41)
[2016-11-03] MEDS: APIXABAN 5 MG TABLET PO SCH ×2 (09:40→21:41)
[2016-11-03] MEDS: FUROSEMIDE 40 MG/4 ML VIAL IV PUSH SCH (09:40)
[2016-11-03] MEDS: PANTOPRAZOLE SOD 40 MG DELAYED RELEASE TAB PO SCH (12:17)
[2016-11-03 12:53] LABS: AUTOMATED NEUTROPHIL # 5.2 TH/MM3 (1.8-7.7); BASOPHIL # 0.1 TH/MM3 (0-0.2); BASOPHIL % 0.7 % (0.0-2.0); EOSINOPHIL # 0.1 TH/MM3 (0-0.4); EOSINOPHIL % 1.4 % (0.0-4.0); HEMATOCRIT 31.1 % (35.0-46.0); HEMO FLAGS DIFF FINAL; LYMPH % 24.8 % (9.0-44.0); LYMPHOCYTE # 1.9 TH/MM3 (1.0-4.8); MEAN CELL VOLUME 86.1 FL (80.0-100.0); MEAN CORPUSCULAR HEMOGLOBIN 27.1 PG (27.0-34.0); MEAN CORPUSCULAR HGB CONC 31.5 % (32.0-36.0); MONO % 7.3 % (0.0-8.0); NEUT % 65.8 % (16.0-70.0); PLATELET COUNT 394 TH/MM3 (150-450); RED BLOOD COUNT 3.62 MIL/MM3 (4.00-5.30); RED CELL DISTRIBUTION WIDTH 21.4 % (11.6-17.2); WHITE BLOOD COUNT 7.8 TH/MM3 (4.0-11.0)
[2016-11-03 13:29] LABS: BICARBONATE 33.5 MEQ/L (21.0-32.0); POTASSIUM 3.5 MEQ/L (3.5-5.1)
--- NOTE | 2016-11-03 18:10 | HHI.PR ---
Subjective Remarks 71 YOWF with COPD,RF, obesity Weaned top NC No fever has cough, occ sputum On NC Started on Eliquis Objective Vital Signs Vital Signs Date Time Temp Pulse Resp B/P Pulse Ox O2 Delivery O2 Flow Rate FiO2 11/03/16 16:30 98.6 107 20 135/60 98 11/03/16 15:00 157 11/03/16 15:00 98.9 99 18 154/76 99 11/03/16 15:00 3 Nasal Cannula 11/03/16 14:00 96 11/03/16 13:00 93 11/03/16 12:00 97 11/03/16 11:00 98 11/03/16 11:00 98.5 97 18 159/79 99 11/03/16 11:00 3 Nasal Cannula 11/03/16 10:00 100 11/03/16 09:00 98 11/03/16 08:00 100 11/03/16 07:00 100 11/03/16 07:00 98.5 100 18 136/93 97 11/03/16 07:00 100 11/03/16 07:00 2 Nasal Cannula 11/03/16 06:00 99 11/03/16 05:00 96 11/03/16 04:27 98 30 11/03/16 04:27 98 BiPAP 30 11/03/16 04:00 98 11/03/16 04:00 98.6 98 18 121/57 96 11/03/16 04:00 Bi-Pap 11/03/16 03:00 95 11/03/16 02:00 96 11/03/16 01:00 90 11/03/16 00:00 86 11/03/16 00:00 98.0 86 18 126/49 97 11/03/16 00:00 Bi-Pap 11/02/16 23:00 90 11/02/16 22:00 96 11/02/16 21:43 96 30 11/02/16 21:00 100 11/02/16 20:00 92 11/02/16 20:00 98.2 92 20 142/66 92 11/02/16 20:00 Nasal Cannula 2.00 I/O 11/02/16 11/02/16 11/02/16 11/03/16 11/03/16 11/03/16 07:00 15:00 23:00 07:00 15:00 23:00 Intake Total 100 ml 930 ml 490 ml 480 ml Output Total 450 ml 1000 ml 850 ml 1250 ml Balance -350 ml -70 ml -360 ml -770 ml Intake Oral 100 ml 930 ml 480 ml 480 ml IV Total 10 ml Output Urine Total 450 ml 1000 ml 850 ml 1250 ml # Bowel Movements 0 0 Result Diagram: 11/03/16 1235 11/03/16 1235 Objective Remarks GENERAL: Obese female mild sob. SKIN: Warm and dry. HEAD: Normocephalic. EYES: No scleral icterus. No injection or drainage. NECK: Supple, trachea midline. No JVD or lymphadenopathy. CARDIOVASCULAR: Regular rate and rhythm without murmurs, gallops, or rubs. RESPIRATORY: Breath sounds equal bilaterally. No accessory muscle use. GASTROINTESTINAL: Abdomen soft, non-tender, nondistended. MUSCULOSKELETAL: No cyanosis, or edema. BACK: Nontender without obvious deformity. No CVA tenderness. A/P Assessment and Plan hypercapnoic RF COPD DM Nicotine use Obesity HTN PLAN: Cont BIPAP prn and at night Aerosol nebs Suplement 02 Monitor BS and Lytes Eliquis 5 mg bid Pedro Yusuf MD Nov 03, 2016 18:10
[2016-11-03] MEDS: ACETAMINOPHEN/HYDROcodone 325 MG/5 MG TAB PO PRN (22:37)
[2016-11-04] VITALS (9 sets, daily range): BP systolic 117–165; BP diastolic 61–79; PULSE 79–94; RESP 19–20; TEMP 97.7–98.5; O2SAT 91–98
[2016-11-04] MEDS: INSULIN NovoLIN REGULAR SUPPLEMENTAL SCALE SQ SCH ×4 (05:00→22:23)
[2016-11-04] MEDS: DILTIAZEM HCL 30 MG TAB PO SCH ×3 (06:16→22:10)
[2016-11-04] MEDS: HEPARIN SODIUM - SQ 10,000 UNITS/ML VIAL SQ SCH ×2 (06:16→17:08)
[2016-11-04] MEDS: ACETAMINOPHEN/HYDROcodone 325 MG/7.5 MG TAB PO PRN (06:32)
--- NOTE | 2016-11-04 07:36 | HHI.PR ---
Subjective Remarks In no acute distress. Alert. Denies chest pain, SOB, N/V/D/C. Using BIPAP at night. Not eating much by mouth. Does not like glucerna. Requesting toasted bagel. She says "I've never eaten much" D/W nursing Objective Vital Signs Date Time Temp Pulse Resp B/P Pulse Ox O2 Delivery O2 Flow Rate FiO2 11/04/16 04:00 98.5 90 20 165/79 98 11/04/16 00:00 97.7 79 19 132/63 98 11/04/16 00:00 Bi-Pap 30 11/03/16 22:20 95 30 11/03/16 20:02 95 11/03/16 20:00 97.8 105 18 135/64 99 11/03/16 20:00 Nasal Cannula 3.00 11/03/16 16:30 98.6 107 20 135/60 98 11/03/16 15:00 157 11/03/16 15:00 98.9 99 18 154/76 99 11/03/16 15:00 3 Nasal Cannula 11/03/16 14:00 96 11/03/16 13:00 93 11/03/16 12:00 97 11/03/16 11:00 98 11/03/16 11:00 98.5 97 18 159/79 99 11/03/16 11:00 3 Nasal Cannula 11/03/16 10:00 100 11/03/16 09:00 98 11/03/16 08:00 100 I/O 11/03/16 11/03/16 11/03/16 11/04/16 11/04/16 11/04/16 07:00 15:00 23:00 07:00 15:00 23:00 Intake Total 490 ml 480 ml 180 ml Output Total 850 ml 1450 ml Balance -360 ml -970 ml 180 ml Intake Oral 480 ml 480 ml 180 ml IV Total 10 ml Output Urine Total 850 ml 1450 ml # Voids 2 # Bowel Movements 0 Result Diagram: 11/03/16 1235 11/03/16 1235 Imaging Last Impressions Chest X-Ray 10/27/16 0000 Signed Impressions: Service Date/Time: Thursday, October 27, 2016 12:27 - CONCLUSION: 1. ET tube in a somewhat low position approximately 1.6 cm above the kimberlyn. This could be pulled back to a better position by pulling it back 1 to 2 cm. 2. Suspected atelectasis at the right lung base. King Brown MD Renal Ultrasound 10/25/16 0000 Signed Impressions: Service Date/Time: October 10:11 - CONCLUSION: 1. Lower pole right renal cyst measuring 4.2 x 3.3 x 4.6 cm. 2. No hydronephrosis, solid mass or calcified calculus. 3. Poor visualization of the bladder due to nondistention. Jaime Norris MD Head CT 10/24/16 0000 Signed Impressions: Service Date/Time: Monday, October 24, 2016 16:56 - CONCLUSION: 1. No acute findings in the brain. 2. Right paranasal sinus disease with air-fluid levels. Anthony Lockhart MD Lower Extremity Ultrasound 10/23/16 0000 Signed Impressions: Service Date/Time: Sunday, October 23, 2016 13:47 - CONCLUSION: The study is negative for deep venous thrombosis bilateral lower extremity. Anthony Lockhart MD Objective Remarks GENERAL: in no acute distress CARDIOVASCULAR: Regular rate and irregular rhythm without murmurs, gallops, or rubs. RESPIRATORY: diminished air entry bilaterally GASTROINTESTINAL: Abdomen soft, non-tender, nondistended. Normal, active bowel sounds MUSCULOSKELETAL: Extremities with trace bilateral pedal edema NEURO: awake and alert A/P Problem List: (1) Diabetes mellitus ICD Code: E11.9 (2) PAROXYSMAL ATRIAL FIBRILLATION ICD Code: I48.0 (3) LAXMI on CPAP ICD Code: G47.33 (4) HTN (hypertension) ICD Code: I10 (5) History of CVA with residual deficit ICD Code: I69.30 (6) MRSA (methicillin resistant staphylococcus aureus) pneumonia ICD Code: J15.212 Assessment and Plan A/P Hypertension Diabetes mellitus Hyperlipidemia Obstructive sleep apnea on C-PAP CVA with residual left-sided weakness Paroxysmal atrial fibrillation 1. VDRF/ MRSA pneumonia - Extubated 10/27 keep on oxygen to keep O2 sat > 90%- continue with neb treatment-BiPaP as needed. continue Zyvox. pulmonary following 2. Acute renal failure-improved renal function stable- renal sonogram with no hydronephrosis- nephrology following. 3. Hyperkalemia-resolved 4. Encephalopathy multifactorial likely secondary to CO2 narcosis and uremia- resolved 5. Atrial fibrillation with rapid ventricular response- Consulted cardiology. PO Cardizem 60mg PO Q6H. Echocardiogram unremarkable. Rate controlled. CHADS2 score 4. Started oral anticoagulation, follow up with cardiology when discharged 6. Mild elevation in troponin likely due to respiratory failure 7. Leukocytosis- resolved. 8. Hypertension- start on Cardizem with close monitoring of BP. 9. Hyperglycemia with underlying history of diabetes mellitus- continue accu- check with SSI. 10. Cellulitis of the lower extremities- continue Abx- wound care following. 11. Obstructive sleep apnea; BiPaP as needed. 12: Poor PO intake: encourage PO intake. Okay for patient to have toasted bagel , D/w nursing, order in dietary placed. DVT/ GI prophylaxis with Subq Heparin/ PPI. continue PT Discussion with the daughter on 11/02 full code for now. Consulted palliative care Discharge Planning Not yet ready for discharge, likely d/c to SNF Problem Qualifiers (1) Diabetes mellitus: Jil Robertson MD Nov 04, 2016 07:36
[2016-11-04] MEDS: NICOTINE 7 MG/24 HR PATCH T-DERMAL SCH (09:00)
[2016-11-04] MEDS: REMOVE OLD PATCH T-DERMAL SCH (09:00)
[2016-11-04] MEDS: LINEZOLID 600 MG TAB PO SCH ×2 (09:26→20:33)
[2016-11-04] MEDS: FUROSEMIDE 40 MG/4 ML VIAL IV PUSH SCH (09:26)
[2016-11-04] MEDS: APIXABAN 5 MG TABLET PO SCH ×2 (09:26→20:33)
[2016-11-04] MEDS: guaiFENesin E.R. 600 MG TAB PO SCH ×2 (09:26→20:33)
[2016-11-04] MEDS: SODIUM CHLORIDE 0.9% FLUSH 10 ML FLUSH IV FLUSH SCH ×2 (09:27→20:32)
[2016-11-04 10:42] LABS: BASOPHIL % 0.6 % (0.0-2.0); EOSINOPHIL # 0.2 TH/MM3 (0-0.4); EOSINOPHIL % 2.5 % (0.0-4.0); HEMATOCRIT 31.7 % (35.0-46.0); HEMO FLAGS DIFF FINAL; LYMPH % 20.6 % (9.0-44.0); LYMPHOCYTE # 1.5 TH/MM3 (1.0-4.8); MEAN CELL VOLUME 87.4 FL (80.0-100.0); MEAN CORPUSCULAR HEMOGLOBIN 27.3 PG (27.0-34.0); MEAN CORPUSCULAR HGB CONC 31.2 % (32.0-36.0); MONO % 7.4 % (0.0-8.0); NEUT % 68.9 % (16.0-70.0); PLATELET COUNT 379 TH/MM3 (150-450); RED BLOOD COUNT 3.63 MIL/MM3 (4.00-5.30); RED CELL DISTRIBUTION WIDTH 21.8 % (11.6-17.2); WHITE BLOOD COUNT 7.2 TH/MM3 (4.0-11.0)
[2016-11-04 10:56] LABS: BICARBONATE 32.4 MEQ/L (21.0-32.0); POTASSIUM 3.6 MEQ/L (3.5-5.1)
[2016-11-04] MEDS: PANTOPRAZOLE SOD 40 MG DELAYED RELEASE TAB PO SCH (13:00)
--- NOTE | 2016-11-04 17:27 | HHI.PR ---
Subjective Remarks 71 YOWF with COPD,RF, obesity No fever has cough, occ sputum On NC Started on Eliquis Appetite poor. Objective Vital Signs Vital Signs Date Time Temp Pulse Resp B/P Pulse Ox O2 Delivery O2 Flow Rate FiO2 11/04/16 12:00 97.8 92 20 155/70 98 11/04/16 08:00 98.5 93 20 145/62 96 11/04/16 08:00 98 Nasal Cannula 3.00 Humidified 11/04/16 07:45 97 Nasal Cannula 3.00 11/04/16 04:00 98.5 90 20 165/79 98 11/04/16 00:00 97.7 79 19 132/63 98 11/04/16 00:00 Bi-Pap 30 11/03/16 22:20 95 30 11/03/16 20:02 95 11/03/16 20:00 97.8 105 18 135/64 99 11/03/16 20:00 Nasal Cannula 3.00 I/O 11/03/16 11/03/16 11/03/16 11/04/16 11/04/16 11/04/16 07:00 15:00 23:00 07:00 15:00 23:00 Intake Total 490 ml 480 ml 180 ml Output Total 850 ml 1450 ml Balance -360 ml -970 ml 180 ml Intake Oral 480 ml 480 ml 180 ml IV Total 10 ml Output Urine Total 850 ml 1450 ml # Voids 2 # Bowel Movements 0 Result Diagram: 11/04/16 0840 11/04/16 0840 Objective Remarks GENERAL: Obese female mild sob. SKIN: Warm and dry. HEAD: Normocephalic. EYES: No scleral icterus. No injection or drainage. NECK: Supple, trachea midline. No JVD or lymphadenopathy. CARDIOVASCULAR: Regular rate and rhythm without murmurs, gallops, or rubs. RESPIRATORY: Breath sounds equal bilaterally. No accessory muscle use. GASTROINTESTINAL: Abdomen soft, non-tender, nondistended. MUSCULOSKELETAL: No cyanosis, or edema. BACK: Nontender without obvious deformity. No CVA tenderness. A/P Assessment and Plan hypercapnoic RF COPD DM Nicotine use Obesity HTN PLAN: Aerosol nebs Suplement 02 Monitor BS and Lytes Eliquis 5 mg bid Encourage po intake. Pedro Yusuf MD Nov 04, 2016 17:27
[2016-11-04] MEDS: ACETAMINOPHEN/HYDROcodone 325 MG/5 MG TAB PO PRN (22:09)
[2016-11-05] VITALS (9 sets, daily range): BP systolic 111–155; BP diastolic 56–80; PULSE 86–103; RESP 18–20; TEMP 98–98.2; O2SAT 95–99
[2016-11-05] MEDS: INSULIN NovoLIN REGULAR SUPPLEMENTAL SCALE SQ SCH ×4 (05:00→23:02)
[2016-11-05] MEDS: HEPARIN SODIUM - SQ 10,000 UNITS/ML VIAL SQ SCH ×2 (05:43→17:25)
[2016-11-05] MEDS: DILTIAZEM HCL 30 MG TAB PO SCH ×3 (05:43→20:50)
[2016-11-05] MEDS: ACETAMINOPHEN/HYDROcodone 325 MG/7.5 MG TAB PO PRN ×2 (05:44→22:57)
[2016-11-05] MEDS: APIXABAN 5 MG TABLET PO SCH ×2 (08:50→20:50)
[2016-11-05] MEDS: FUROSEMIDE 40 MG/4 ML VIAL IV PUSH SCH (08:50)
[2016-11-05] MEDS: LINEZOLID 600 MG TAB PO SCH ×2 (08:50→20:50)
[2016-11-05] MEDS: NICOTINE 7 MG/24 HR PATCH T-DERMAL SCH (08:50)
[2016-11-05] MEDS: guaiFENesin E.R. 600 MG TAB PO SCH ×2 (08:50→20:49)
[2016-11-05] MEDS: REMOVE OLD PATCH T-DERMAL SCH (08:57)
[2016-11-05] MEDS: PANTOPRAZOLE SOD 40 MG DELAYED RELEASE TAB PO SCH (12:19)
[2016-11-05] MEDS: SODIUM CHLORIDE 0.9% FLUSH 10 ML FLUSH IV FLUSH SCH ×2 (12:19→20:50)
[2016-11-05] MEDS: ONDANSETRON HCL 4 MG/2 ML VIAL IVP PRN (12:46)
--- NOTE | 2016-11-05 13:44 | HHI.PR ---
Subjective Remarks Pt tells me that she doesn't have much of an appetite. Doesn't like ensures, denies any CP/sob/v. feels nauseous and just had some zofran. discussed w RN, concerned about pt's poor appetite. Objective Vitals Vital Signs Date Time Temp Pulse Resp B/P Pulse Ox O2 Delivery O2 Flow Rate FiO2 11/05/16 12:37 3.00 11/05/16 12:00 98.0 92 18 145/65 98 11/05/16 08:00 98.0 89 18 111/56 96 11/05/16 08:00 Nasal Cannula 2.50 11/05/16 08:00 103 11/05/16 04:00 Nasal Cannula 2.50 11/05/16 04:00 98.1 92 20 150/69 99 11/05/16 02:53 2.50 11/05/16 00:00 98.2 87 18 120/57 96 11/05/16 00:00 Nasal Cannula 2.50 11/04/16 20:07 90 11/04/16 20:00 Nasal Cannula 2.50 11/04/16 20:00 97.9 94 20 117/61 98 11/04/16 18:44 96 Nasal Cannula 3.00 11/04/16 16:00 97.8 93 20 164/72 91 I/O 11/04/16 11/04/16 11/04/16 11/05/16 11/05/16 11/05/16 07:00 15:00 23:00 07:00 15:00 23:00 Intake Total 180 ml 240 ml Output Total 2725 ml 550 ml Balance 180 ml -2725 ml -310 ml Intake Oral 180 ml 240 ml Output Urine Total 2725 ml 550 ml # Voids 2 # Bowel Movements 0 Result Diagram: 11/04/16 0840 11/04/16 0840 Imaging Last Impressions Chest X-Ray 10/27/16 0000 Signed Impressions: Service Date/Time: Thursday, October 27, 2016 12:27 - CONCLUSION: 1. ET tube in a somewhat low position approximately 1.6 cm above the kimberlyn. This could be pulled back to a better position by pulling it back 1 to 2 cm. 2. Suspected atelectasis at the right lung base. King Brown MD Renal Ultrasound 10/25/16 0000 Signed Impressions: Service Date/Time: October 10:11 - CONCLUSION: 1. Lower pole right renal cyst measuring 4.2 x 3.3 x 4.6 cm. 2. No hydronephrosis, solid mass or calcified calculus. 3. Poor visualization of the bladder due to nondistention. Jaime Norris MD Head CT 10/24/16 0000 Signed Impressions: Service Date/Time: Monday, October 24, 2016 16:56 - CONCLUSION: 1. No acute findings in the brain. 2. Right paranasal sinus disease with air-fluid levels. Anthony Lockhart MD Lower Extremity Ultrasound 10/23/16 0000 Signed Impressions: Service Date/Time: Sunday, October 23, 2016 13:47 - CONCLUSION: The study is negative for deep venous thrombosis bilateral lower extremity. Anthony Lockhart MD Objective Remarks GENERAL: in no acute distress CARDIOVASCULAR: Regular rate and irregular rhythm without murmurs RESPIRATORY: diminished air entry bilaterally GASTROINTESTINAL: Abdomen soft, non-tender, nondistended. Normal, active bowel sounds skin: small excoriations noted in the sacral area. no signs of infection MUSCULOSKELETAL: Extremities with trace bilateral pedal edema NEURO: awake and alert Procedures intubation/ extubation A/P Problem List: (1) Sepsis ICD Code: A41.9 Status: Acute (2) Acute worsening of stage 3 chronic kidney disease ICD Code: N18.3 Status: Acute (3) Elevated troponin I level ICD Code: R74.8 Status: Acute (4) Encephalopathy ICD Code: G93.40 Status: Acute (5) Leukocytosis ICD Code: D72.829 Status: Acute (6) Diabetes mellitus ICD Code: E11.9 Status: Acute (7) UTI (urinary tract infection) ICD Code: N39.0 Status: Acute (8) Hyperkalemia ICD Code: E87.5 Status: Acute Assessment and Plan Hypertension Diabetes mellitus Hyperlipidemia Obstructive sleep apnea on C-PAP CVA with residual left-sided weakness Paroxysmal atrial fibrillation 1. VDRF/ MRSA pneumonia - Extubated 10/27 keep on oxygen to keep O2 sat > 90%- continue with neb treatment-BiPaP as needed. on Zyvox day#9. would treat for a total of 10 days. stop in AM. pulmonary following. 2. Acute renal failure-improved renal function stable- renal sonogram with no hydronephrosis- nephrology following. 3. Hyperkalemia-resolved 4. Encephalopathy multifactorial likely secondary to CO2 narcosis and uremia- resolved 5. Atrial fibrillation with rapid ventricular response- Consulted cardiology. PO Cardizem 60mg PO Q6H. Echocardiogram unremarkable. Rate controlled. CHADS2 score 4. on oral anticoagulation, follow up with cardiology when discharged 6. Mild elevation in troponin likely due to respiratory failure 7. Leukocytosis- resolved. 8. Hypertension- on Cardizem with close monitoring of BP. 9. Hyperglycemia with underlying history of diabetes mellitus- continue accu- check with SSI. 10. Cellulitis of the lower extremities- continue Abx- wound care following. 11. Obstructive sleep apnea; BiPaP as needed. 12: Poor PO intake: encourage PO intake. pt doesn't like glucernas. consulted Special Agent In Charge for a calory count. d/c santoyo and monitor. add zinc oxyde prn to excoriation. DVT/ GI prophylaxis with Subq Heparin/ PPI. continue PT Consulted palliative care Discharge Planning finish course of abx. pt w poor po intake, consulted lan specialist for calory count. Most likely will be discharge to SNF Problem Qualifiers (1) Diabetes mellitus: Mago Kolb MD November 05, 2016 13:43
--- NOTE | 2016-11-05 16:18 | HHI.NPPN ---
Subjective General Problems: Anemia, Edema Renal Failure: Chronic, Acute, Stage III History of Present Illness 71-year-old female with a past medical history of hypertension, diabetes mellitus, hyperlipidemia, chronic obstructive pulmonary disease, cerebrovascular accident, transferred here from [facility], came to the hospital because of left-sided weakness. I was called to see the patient because of elevated BUN and creatinine. The patient has a creatinine of 2.0 on presentation. She previously has a creatinine of 1.5-1.6 but this was two years ago. Additional Remarks Patient is alert, no SOB, no chest pain. Review of Systems General General Remarks Intubated and sedated. Objective Data Data 11/04/16 11/05/16 19:00 07:00 Intake Total 240 ml Output Total 2725 ml 550 ml Balance -2725 ml -310 ml Intake Oral 240 ml Output Urine Total 2725 ml 550 ml # Bowel Movements 0 Vital Signs Date Time Temp Pulse Resp B/P Pulse Ox O2 Delivery O2 Flow Rate FiO2 11/05/16 13:34 95 20 140/63 11/05/16 12:37 3.00 11/05/16 12:00 98.0 92 18 145/65 98 11/05/16 08:00 98.0 89 18 111/56 96 11/05/16 08:00 Nasal Cannula 2.50 11/05/16 08:00 103 11/05/16 04:00 Nasal Cannula 2.50 11/05/16 04:00 98.1 92 20 150/69 99 11/05/16 02:53 2.50 11/05/16 00:00 98.2 87 18 120/57 96 11/05/16 00:00 Nasal Cannula 2.50 11/04/16 20:07 90 11/04/16 20:00 Nasal Cannula 2.50 11/04/16 20:00 97.9 94 20 117/61 98 11/04/16 18:44 96 Nasal Cannula 3.00 -: 11/04/16 0840 11/04/16 0840 Physical Exam General Appearance: No Acute Distress, Anxious Eyes Eye Exam: Pupils Equal Throat Throat Exam: Oral Mucosa [place] & Moist Neck Neck Exam: Neck Supple Pulmonary Resp Exam: No Distress, Rhonchi, Decreased Bases, Diminished Breath Sounds Cardiology CV Exam: Regular, Normal Sinus Rhythm Gastrointestinal/Abdomen GI Exam: Soft, Non-Tender, Bowel Sounds Present, Distended Extremeties Extremities Exam: Moderate Edema, Pitting Edema, Dependent Edema (Both legs has erythema and covered with dressing.) Neurologic Neuro Exam: Alert, Awake Assessment/Plan Assessment Summary: HIRAM/Acute Renal Failure, Fluid/Volume Overload, CKD Stage III Problem List: (1) Renal insufficiency (2) Leukocytosis (3) Encephalopathy (4) Diabetes mellitus (5) Acute worsening of stage 3 chronic kidney disease Plan Non oliguric. On Lasix once a day. Renal function is better. BP is stable, Avoid nephrotoxic agents. Creatinine is stable, possible at her baseline. HR and BP now controlled, on PO Cardizem. Problem Qualifiers (1) Diabetes mellitus: Bree Dill MD November 05, 2016 16:18
--- NOTE | 2016-11-05 17:15 | HHI.PR ---
Subjective Remarks 71 YOWF with COPD,RF, obesity No fever has cough, occ sputum On NC on Eliquis Appetite poor. Used CPAP last night Objective Vital Signs Vital Signs Date Time Temp Pulse Resp B/P Pulse Ox O2 Delivery O2 Flow Rate FiO2 11/05/16 13:34 95 20 140/63 11/05/16 12:37 3.00 11/05/16 12:00 98.0 92 18 145/65 98 11/05/16 08:00 98.0 89 18 111/56 96 11/05/16 08:00 Nasal Cannula 2.50 11/05/16 08:00 103 11/05/16 04:00 Nasal Cannula 2.50 11/05/16 04:00 98.1 92 20 150/69 99 11/05/16 02:53 2.50 11/05/16 00:00 98.2 87 18 120/57 96 11/05/16 00:00 Nasal Cannula 2.50 11/04/16 20:07 90 11/04/16 20:00 Nasal Cannula 2.50 11/04/16 20:00 97.9 94 20 117/61 98 11/04/16 18:44 96 Nasal Cannula 3.00 I/O 11/04/16 11/04/16 11/04/16 11/05/16 11/05/16 11/05/16 07:00 15:00 23:00 07:00 15:00 23:00 Intake Total 180 ml 240 ml Output Total 2725 ml 550 ml Balance 180 ml -2725 ml -310 ml Intake Oral 180 ml 240 ml Output Urine Total 2725 ml 550 ml # Voids 2 # Bowel Movements 0 Result Diagram: 11/04/16 0840 11/04/16 0840 Objective Remarks GENERAL: Obese female mild sob. SKIN: Warm and dry. HEAD: Normocephalic. EYES: No scleral icterus. No injection or drainage. NECK: Supple, trachea midline. No JVD or lymphadenopathy. CARDIOVASCULAR: Regular rate and rhythm without murmurs, gallops, or rubs. RESPIRATORY: Breath sounds equal bilaterally. No accessory muscle use. GASTROINTESTINAL: Abdomen soft, non-tender, nondistended. MUSCULOSKELETAL: No cyanosis, or edema. BACK: Nontender without obvious deformity. No CVA tenderness. A/P Assessment and Plan hypercapnoic RF COPD DM Nicotine use Obesity HTN PLAN: Aerosol nebs Supplement 02 Monitor BS and Lytes Eliquis 5 mg bid Encourage po intake. CPAP at night Pedro Yusuf MD November 05, 2016 17:15
[2016-11-05] MEDS: ZINC OXIDE 40% OINT 60 GM TUBE TOPICAL PRN ×2 (17:26→20:54)
[2016-11-05] MEDS ORDERED: BISACODYL 10 MG SUPP RECTAL ONE (17:30)
--- NOTE | 2016-11-05 17:43 | HHI.HCPN ---
Reason for visit a. To assist with evaluation and management of symptoms including: decreased appetite, debility, constipation. b. To assist medical decision maker(s) with: better understanding of current medical conditions; weighing benefits/burdens of medical treatment options; making medical treatment decisions. . Subjective/Interval History Patient seen and examined in room. No family at bedside. Also present NAT Pinto. Patient is awake and alert. Appears weak, difficultly repositioning herself in bed. Patient reports decreased appetite, eating only small amounts, tells me she ate an orange and lots of water today. She tells me her appetite has been decreasing for many months, at home she was eating one small meal (sandwich and soup) per day. Calorie count ordered. She indicates her family would want her to have a feeding tube if needed. However she indicates she wouldn't want to be fed through a tube, but would do it for her children. She is considering CODE STATUS, for now remains FULL CODE. She denies pain today. Has PRN Dilaudid available none used since 11/02/16 or PRN hydrocodone since 11/04/16. She verbalizes frustration with her limited mobility , reported she has not been out of bed for 2 weeks now. On oxygen via nasal cannula 3 LPM. Vital signs stable. No new labs. LBM , Dulcolax now ordered has PRN dose has not been given since admission. Will add daily Senna-S. Cough controlled with current meds. No new imaging. Dr. Dill visited during my visit, renal function slightly improved since admission (creatinine 1.63). . Family/friend interactions Left message for daughterCheryl patient indicated I should call her 1st. Attempting to arrange family meeting with patient's 4 children and patient, hopeful to complete written advance directives and further conversation regarding goals of care. . Advance Directives Advance Directive Specifics Documented care wishes: No available document care wishes. Significant change in goals: FULL CODE, patient considering code status. Attempting to arrange family meeting to further clarify treatment goals with patient and her 4 children. . Objective Vital Signs Date Time Temp Pulse Resp B/P Pulse Ox O2 Delivery O2 Flow Rate FiO2 11/05/16 13:34 95 20 140/63 11/05/16 12:37 3.00 11/05/16 12:00 98.0 92 18 145/65 98 11/05/16 08:00 98.0 89 18 111/56 96 11/05/16 08:00 Nasal Cannula 2.50 11/05/16 08:00 103 11/05/16 04:00 Nasal Cannula 2.50 11/05/16 04:00 98.1 92 20 150/69 99 11/05/16 02:53 2.50 11/05/16 00:00 98.2 87 18 120/57 96 11/05/16 00:00 Nasal Cannula 2.50 11/04/16 20:07 90 11/04/16 20:00 Nasal Cannula 2.50 11/04/16 20:00 97.9 94 20 117/61 98 11/04/16 18:44 96 Nasal Cannula 3.00 Intake & Output 11/05/16 11/05/16 07:00 19:00 Intake Total 240 ml Output Total 550 ml Balance -310 ml Intake Oral 240 ml Output Urine Total 550 ml Physical Exam CONSTITUTIONAL/GENERAL: This is a morbidly obese, elderly female patient in no acute distress. TUBES/LINES/DRAINS: PIV 2, Cuellar catheter, Nasal cannula SKIN: Excessive dryness, pigment changes noted on bilateral lower extremities. Bilateral lower extremity dressings intact. Skin temperature appropriate. Not diaphoretic. CARDIOVASCULAR: Irregularly irregular without murmurs, gallops or rubs RESPIRATORY/CHEST: Breath sounds diminished bilaterally, becomes dyspneic with conversation GASTROINTESTINAL: Abdomen soft, non-tender, nondistended. GENITOURINARY: Cuellar catheter in place. MUSCULOSKELETAL: Extremities with trace edema. NEUROLOGICAL: Awake and alert, does not appear confused during my visit today. PSYCHIATRIC: No obvious anxiety/depression. no apparent hallucinations or other psychotic thought process. . Diagnostic Tests Laboratory Laboratory Tests Test 11/03/16 11/04/16 12:35 08:40 White Blood Count 7.8 TH/MM3 7.2 TH/MM3 (4.0-11.0) (4.0-11.0) Red Blood Count 3.62 MIL/MM3 3.63 MIL/MM3 (4.00-5.30) (4.00-5.30) Hemoglobin 9.8 GM/DL 9.9 GM/DL (11.6-15.3) (11.6-15.3) Hematocrit 31.1 % 31.7 % (35.0-46.0) (35.0-46.0) Mean Corpuscular Volume 86.1 FL 87.4 FL (80.0-100.0) (80.0-100.0) Mean Corpuscular Hemoglobin 27.1 PG 27.3 PG (27.0-34.0) (27.0-34.0) Mean Corpuscular Hemoglobin 31.5 % 31.2 % Concent (32.0-36.0) (32.0-36.0) Red Cell Distribution Width 21.4 % 21.8 % (11.6-17.2) (11.6-17.2) Platelet Count 394 TH/MM3 379 TH/MM3 (150-450) (150-450) Mean Platelet Volume 7.2 FL 7.3 FL (7.0-11.0) (7.0-11.0) Neutrophils (%) (Auto) 65.8 % 68.9 % (16.0-70.0) (16.0-70.0) Lymphocytes (%) (Auto) 24.8 % 20.6 % (9.0-44.0) (9.0-44.0) Monocytes (%) (Auto) 7.3 % (0.0-8.0) 7.4 % (0.0-8.0) Eosinophils (%) (Auto) 1.4 % (0.0-4.0) 2.5 % (0.0-4.0) Basophils (%) (Auto) 0.7 % (0.0-2.0) 0.6 % (0.0-2.0) Neutrophils # (Auto) 5.2 TH/MM3 5.0 TH/MM3 (1.8-7.7) (1.8-7.7) Lymphocytes # (Auto) 1.9 TH/MM3 1.5 TH/MM3 (1.0-4.8) (1.0-4.8) Monocytes # (Auto) 0.6 TH/MM3 0.5 TH/MM3 (0-0.9) (0-0.9) Eosinophils # (Auto) 0.1 TH/MM3 0.2 TH/MM3 (0-0.4) (0-0.4) Basophils # (Auto) 0.1 TH/MM3 0.0 TH/MM3 (0-0.2) (0-0.2) CBC Comment DIFF FINAL DIFF FINAL Differential Comment Sodium Level 140 MEQ/L 140 MEQ/L (136-145) (136-145) Potassium Level 3.5 MEQ/L 3.6 MEQ/L (3.5-5.1) (3.5-5.1) Chloride Level 98 MEQ/L 99 MEQ/L (98-107) (98-107) Carbon Dioxide Level 33.5 MEQ/L 32.4 MEQ/L (21.0-32.0) (21.0-32.0) Anion Gap 9 MEQ/L (5-15) 9 MEQ/L (5-15) Blood Urea Nitrogen 56 MG/DL (7-18) 50 MG/DL (7-18) Creatinine 1.63 MG/DL 1.63 MG/DL (0.50-1.00) (0.50-1.00) Estimat Glomerular Filtration 31 ML/MIN (>89) 31 ML/MIN (>89) Rate Random Glucose 162 MG/DL 194 MG/DL (74-106) (74-106) Calcium Level 8.8 MG/DL 8.6 MG/DL (8.5-10.1) (8.5-10.1) Result Diagram: 11/04/1640 11/04/1640 Imaging Last Impressions Chest X-Ray 10/27/16 Signed Impressions: Service Date/Time: Thursday, October 27, 2016 12:27 - CONCLUSION: 1. ET tube in a somewhat low position approximately 1.6 cm above the kimberlyn. This could be pulled back to a better position by pulling it back 1 to 2 cm. 2. Suspected atelectasis at the right lung base. King Brown MD Renal Ultrasound 10/25/16 0000 Signed Impressions: Service Date/Time: October 10:11 - CONCLUSION: 1. Lower pole right renal cyst measuring 4.2 x 3.3 x 4.6 cm. 2. No hydronephrosis, solid mass or calcified calculus. 3. Poor visualization of the bladder due to nondistention. Jaime Norirs MD Head CT 10/24/16 0000 Signed Impressions: Service Date/Time: Monday, October 24, 2016 16:56 - CONCLUSION: 1. No acute findings in the brain. 2. Right paranasal sinus disease with air-fluid levels. Anthony Lockhart MD Lower Extremity Ultrasound 10/23/16 0000 Signed Impressions: Service Date/Time: Sunday, October 23, 2016 13:47 - CONCLUSION: The study is negative for deep venous thrombosis bilateral lower extremity. Anthony Lockhart MD . Procedures 10/24/16: Intubation 10/27/16: Extubation . Assessment and Plan Disease Oriented Problem List: (1) Encephalopathy (2) NSTEMI (non-ST elevated myocardial infarction) (3) Hyperglycemia (4) Hyperkalemia (5) Diabetes mellitus (6) Leukocytosis (7) Sepsis (8) UTI (urinary tract infection) (9) Elevated troponin I level (10) Acute worsening of stage 3 chronic kidney disease (11) Renal insufficiency Symptom Scale: (1) Pain 0-10 Scale: 0 Comment: Patient reports left hip pain with movement, unable to describe pain or quantify pain level. PRN Dilaudid 0.5mg IV q 3 hours for breakthrough pain, PRN acetaminophen 650 mg PO q6 hours for pain scale 1-2; PRN Kennedy 5/325mg q4 hours PO for pain scale 3-5; PRN Kennedy 7.5/325mg PO q4 for pain scale 6-10. (2) Debility 0-10 Scale: Unable to quantify (3) Dyspnea 0-10 Scale: 0 Comment: On oxygen via nasal cannula (4) Constipation Comment: Patient is at risk for constipation secondary to immobility and pain medication, although patient denies constipation. LBM: 11/01/2016. . Pertinent Non-Medical Issues Psychosocial: Patient was born in [place], moving to [place] in 1978. She has 3 sisters and 2 brothers. 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 Her in 2003 from lung cancer, together she and her had one daughter. The patient has a total of 4 biological children children (Cheryl, Noemí, Lamin, Beck) who live locally. Spiritual: Pentecostal ricardo Legal: Patient is currently having intermittent confusion and would benefit from joint decision making. Per [place] statutes, in the absence of written advanced directives healthcare proxy decision making would fall to the majority of the patient's for adult children (Noemí Luna, Lamin, Beck). When asked about healthcare proxy decision making, the patient confirms she would want all 4 of her children involved in medical decision-making. Ethical issues impacting care: No known ethical issues impacting care at this time. . Important Contacts Cheryl Fan, daughter: [phone] or [phone] Noemí, daughter: [phone] Beck, son: [phone] Memo, son: [phone] . Prognosis Ms. Mackey is a 71-year-old female patient with a complex medical history that includes DM, hypothyroidism, anemia, gout, hypertension, hyperlipoproteinemia, history of CVA with residual left-sided weakness, chronic kidney insufficiency, atrial fibrillation and obstructive sleep apnea. She is currently admitted with sepsis. The patient is morbidly obese and deconditioned secondary to what appears to be a slow decline. Patient's goals are aggressive at this time, and she will require fci facility placement for rehabilitation upon discharge. Given the patient's advanced age, multiple comorbid conditions and poor functional statusshe is at high risk for continued setbacks and complications. . Code Status: Full Code Plan * FULL CODE * Decision-making: Patient is currently having intermittent confusion and would benefit from joint decision making. Per [place] statutes, in the absence of written advanced directives healthcare proxy decision making would fall to the majority of the patient's for adult children (Noemí Luna, Lamin, Beck). Patient's considering completion of written advance directives and designation of healthcare surrogate. * Goals: Goals remain aggressive at this time. Patient hopeful for rehab and continued therapy to get her back home, I am not certain this is realistic. Patient considering CODE STATUS. Patient degrees family meeting would be beneficial to further clarify goals. * 11/05/16 Attempted to contact patient's daughter, Cheryl Fan, at . Palliative care contact information was left on the patient's daughter's voicemail, awaiting return phone call. * Symptom managementpain: Patient denies pain during my visit, sparing PRN need over the past 48 hrs. PRN Dilaudid 0.5mg IV q 3 hours for breakthrough pain , PRN acetaminophen 650 mg PO q6 hours for pain scale 1-2; PRN Kennedy 5/325mg q4 hours PO for pain scale 3-5; PRN Kennedy 7.5/325mg PO q4 for pain. Palliative care will monitor PRN requirements and make recommendations as indicated. * Symptom management Constipation: Patient is at risk for constipation secondary to immobility and pain medication, although patient denies constipation. LBM: 11/01/2016. Ordered Senna S - 1 tab PO daily. Ordered Dulcolax suppository now and has daily PRN order available. Debility: patient has or nutritional status, bedbound since admission, continue PT. Decreased appetite: calorie count ordered, albumin was 2.6 on 10/23/16, suspect decreasing given prolonged minimal intake. * Will discuss prognosis with medical team. * Palliative care number in room for patient to give to family when they arrive at next visit. * Palliative care will continue to attempt to arrange family meeting for further clarification of treatment goals. Continue to follow throughout hospitalization to assist with symptom management. . Time Spent Total Floor Time (mins): 60 Face to Face Time (mins): 50 >50% Counseling/Coord of Care: Yes Attestation To help prompt me to consider important information that might be impacting today's encounter and assessment, information from prior notes written by myself or my colleagues may have been "brought forward" into today's note. My signature on this note, however, is an attestation that I personally performed the exam, history, and/or decision-making noted today, and, unless otherwise indicated, the interactions with patient, family, and staff as well as the review of records all occurred today. I also attest that the listed assessment and stated plan reflect my best clinical judgment today based on the combination of historical information, prior notes, and today's exam/ interactions. When time spent is documented, it refers only to time spent today by the signer, or if indicated, combined time spent today by collaborating physician/nurse practitioner. CINTHIA PAGE November 05, 2016 17:43
[2016-11-05] MEDS: ACETAMINOPHEN/HYDROcodone 325 MG/5 MG TAB PO PRN (18:44)
[2016-11-06] VITALS (9 sets, daily range): BP systolic 131–149; BP diastolic 60–68; PULSE 78–89; RESP 16–22; TEMP 96.4–98; O2SAT 95–100
[2016-11-06] MEDS: HEPARIN SODIUM - SQ 10,000 UNITS/ML VIAL SQ SCH (06:25)
[2016-11-06] MEDS: DILTIAZEM HCL 30 MG TAB PO SCH ×3 (06:25→21:04)
[2016-11-06] MEDS: ACETAMINOPHEN/HYDROcodone 325 MG/5 MG TAB PO PRN ×2 (06:25→21:03)
[2016-11-06] MEDS: INSULIN NovoLIN REGULAR SUPPLEMENTAL SCALE SQ SCH ×4 (06:26→22:02)
[2016-11-06] MEDS: guaiFENesin E.R. 600 MG TAB PO SCH ×2 (08:26→21:03)
[2016-11-06] MEDS: DOCUSATE SODIUM 50 MG/SENNA 8.6 MG TAB PO SCH (08:26)
[2016-11-06] MEDS: LINEZOLID 600 MG TAB PO SCH (08:26)
[2016-11-06] MEDS: FUROSEMIDE 40 MG/4 ML VIAL IV PUSH SCH (08:26)
[2016-11-06] MEDS: SODIUM CHLORIDE 0.9% FLUSH 10 ML FLUSH IV FLUSH SCH ×2 (08:27→21:06)
[2016-11-06] MEDS: APIXABAN 5 MG TABLET PO SCH ×2 (08:27→21:04)
[2016-11-06] MEDS: REMOVE OLD PATCH T-DERMAL SCH (08:31)
[2016-11-06] MEDS: NICOTINE 7 MG/24 HR PATCH T-DERMAL SCH (08:31)
--- NOTE | 2016-11-06 10:05 | HHI.PR ---
Subjective Remarks Follow-up respiratory failure, pneumonia, poor oral intake. The patient states that she is eating a little better today. Denies abdominal pain, nausea, vomiting. No specific complaints at this time. Objective Vitals Vital Signs Date Time Temp Pulse Resp B/P Pulse Ox O2 Delivery O2 Flow Rate FiO2 11/06/16 08:22 97.2 85 20 143/63 95 11/06/16 04:00 Nasal Cannula 3.00 11/06/16 04:00 97.5 88 18 149/68 100 11/06/16 00:00 98.0 78 16 132/60 98 11/06/16 00:00 Nasal Cannula 3.00 11/05/16 20:08 87 11/05/16 20:00 98.2 91 20 155/67 98 11/05/16 20:00 Nasal Cannula 3.00 11/05/16 19:49 97 Nasal Cannula 3.00 11/05/16 16:00 98.1 86 18 133/80 95 11/05/16 13:34 95 20 140/63 11/05/16 12:37 3.00 11/05/16 12:00 98.0 92 18 145/65 98 I/O 11/05/16 11/05/16 11/05/16 11/06/16 11/06/16 11/06/16 07:00 15:00 23:00 07:00 15:00 23:00 Intake Total 240 ml 240 ml 0 ml 0 ml Output Total 550 ml 1100 ml Balance -310 ml -860 ml 0 ml 0 ml Intake Oral 240 ml 240 ml 0 ml 0 ml Output Urine Total 550 ml 1100 ml # Voids 1 1 0 # Bowel Movements 1 0 Result Diagram: 11/04/16 0840 11/04/16 0840 Imaging Last Impressions Chest X-Ray 10/27/16 0000 Signed Impressions: Service Date/Time: Thursday, October 27, 2016 12:27 - CONCLUSION: 1. ET tube in a somewhat low position approximately 1.6 cm above the [place]. This could be pulled back to a better position by pulling it back 1 to 2 cm. 2. Suspected atelectasis at the right lung base. King Brown MD Renal Ultrasound 10/25/16 0000 Signed Impressions: Service Date/Time: October 10:11 - CONCLUSION: 1. Lower pole right renal cyst measuring 4.2 x 3.3 x 4.6 cm. 2. No hydronephrosis, solid mass or calcified calculus. 3. Poor visualization of the bladder due to nondistention. Jaime Norris MD Head CT 10/24/16 0000 Signed Impressions: Service Date/Time: Monday, October 24, 2016 16:56 - CONCLUSION: 1. No acute findings in the brain. 2. Right paranasal sinus disease with air-fluid levels. Anthony Lockhart MD Lower Extremity Ultrasound 10/23/16 0000 Signed Impressions: Service Date/Time: Sunday, October 23, 2016 13:47 - CONCLUSION: The study is negative for deep venous thrombosis bilateral lower extremity. Anthony Lockhart MD Objective Remarks General: Obese elderly female in no acute distress. Heart: Regular rate and rhythm. No murmur. Lungs: Clear to auscultation bilaterally. No wheezes, rales, or rhonchi. Breathing is nonlabored. Abdomen: Soft, nontender, nondistended. Extremities: No lower extremity edema. Psych: Alert and oriented. Procedures intubation/ extubation Urinary Catheter: No Vascular Central Line Catheter: No A/P Problem List: (1) Sepsis ICD Code: A41.9 Status: Resolved (2) Acute worsening of stage 3 chronic kidney disease ICD Code: N18.3 Status: Acute (3) Elevated troponin I level ICD Code: R74.8 Status: Acute (4) Encephalopathy ICD Code: G93.40 Status: Acute (5) Leukocytosis ICD Code: D72.829 Status: Resolved (6) Diabetes mellitus ICD Code: E11.9 Status: Chronic (7) UTI (urinary tract infection) ICD Code: N39.0 Status: Resolved (8) Hyperkalemia ICD Code: E87.5 Status: Acute (9) MRSA (methicillin resistant staphylococcus aureus) pneumonia ICD Code: J15.212 Status: Acute Assessment and Plan 1. Acute respiratory failure: Improved. Appreciate pulmonology recommendations. Patient was extubated 10/27/16. Continue supplemental oxygen, nebulizer treatments. 2. Sepsis: Resolved. 3. MRSA pneumonia: Completing 10 day course of Zyvox today. Appreciate infectious disease recommendations. 4. Acute worsening of chronic kidney disease stage III: Appreciate nephrology recommendations. Creatinine has improved during the hospitalization. 5. Encephalopathy: Multifactorial. Improved. 6. Atrial fibrillation: Rate is now controlled. Continue Cardizem. Appreciate cardiology recommendations. Continue oral anticoagulation with Eliquis. 7. Mild troponin elevation: Likely secondary to respiratory failure. 8. Hypertension: Continue Cardizem. 9. Diabetes mellitus: Monitor Accu-Cheks and cover with sliding scale insulin. 10. Bilateral lower extremity cellulitis: Continue antibiotics. Continue wound care. 11. Obstructive sleep apnea: BiPAP at night. 12. Poor oral intake appreciate dietary recommendations. Calorie count requested. 13. GI prophylaxis: PPI. 14. DVT prophylaxis: Continue Eliquis. Discharge Planning Patient will need SNF at discharge. Problem Qualifiers (1) Sepsis: Qualified Code: A41.02 - Sepsis due to methicillin resistant Staphylococcus aureus (MRSA) (2) Diabetes mellitus: Qualified Code: E11.22 - Type 2 diabetes mellitus with stage 3 chronic kidney disease, with long-term current use of insulin Ash Leahy MD November 06, 2016 10:05
--- NOTE | 2016-11-06 10:34 | HHI.HCPN ---
Able to speak with daughter Cheryl. She is going to speak with her siblings to arrange a family meeting time with palliative care. Family meeting TBD. Palliative care will continue to follow throughout hospitalization. Family meeting pending to address goals of care. Meeting planned 11/08/16 4pm. Nayeli Duncan MSW, F[employer]T C[employer]ER November 06, 2016 10:34
[2016-11-06] MEDS: PANTOPRAZOLE SOD 40 MG DELAYED RELEASE TAB PO SCH (12:06)
--- NOTE | 2016-11-06 15:01 | HHI.NPPN ---
Subjective General Problems: Anemia, Edema Renal Failure: Chronic, Acute, Stage III History of Present Illness 71-year-old female with a past medical history of hypertension, diabetes mellitus, hyperlipidemia, chronic obstructive pulmonary disease, cerebrovascular accident, transferred here from [facility], came to the hospital because of left-sided weakness. I was called to see the patient because of elevated BUN and creatinine. The patient has a creatinine of 2.0 on presentation. She previously has a creatinine of 1.5-1.6 but this was two years ago. Additional Remarks Patient is alert, no SOB, started eating better. Review of Systems General General Remarks Intubated and sedated. Objective Data Data 11/05/16 11/06/16 19:00 07:00 Intake Total 240 ml 0 ml Output Total 1100 ml Balance -860 ml 0 ml Intake Oral 240 ml 0 ml Output Urine Total 1100 ml # Voids 1 1 # Bowel Movements 1 Vital Signs Date Time Temp Pulse Resp B/P Pulse Ox O2 Delivery O2 Flow Rate FiO2 11/06/16 13:35 96.4 80 20 144/65 100 11/06/16 11:31 95 Nasal Cannula 3.00 11/06/16 09:36 Nasal Cannula 3.00 11/06/16 08:22 97.2 85 20 143/63 95 11/06/16 07:55 80 11/06/16 04:00 Nasal Cannula 3.00 11/06/16 04:00 97.5 88 18 149/68 100 11/06/16 00:00 98.0 78 16 132/60 98 11/06/16 00:00 Nasal Cannula 3.00 11/05/16 20:08 87 11/05/16 20:00 98.2 91 20 155/67 98 11/05/16 20:00 Nasal Cannula 3.00 11/05/16 19:49 97 Nasal Cannula 3.00 11/05/16 16:00 98.1 86 18 133/80 95 -: 11/04/16 0840 11/04/16 0840 Physical Exam General Appearance: No Acute Distress, Anxious Eyes Eye Exam: Pupils Equal Throat Throat Exam: Oral Mucosa [place] & Moist Neck Neck Exam: Neck Supple Pulmonary Resp Exam: No Distress, Rhonchi, Decreased Bases, Diminished Breath Sounds Cardiology CV Exam: Regular, Normal Sinus Rhythm Gastrointestinal/Abdomen GI Exam: Soft, Non-Tender, Bowel Sounds Present, Distended Extremeties Extremities Exam: Moderate Edema, Pitting Edema, Dependent Edema (Both legs has erythema and covered with dressing.) Neurologic Neuro Exam: Alert, Awake Assessment/Plan Assessment Summary: HIRAM/Acute Renal Failure, Fluid/Volume Overload, CKD Stage III Problem List: (1) Renal insufficiency (2) Leukocytosis (3) Encephalopathy (4) Diabetes mellitus (5) Acute worsening of stage 3 chronic kidney disease Plan Non oliguric. On Lasix once a day. Renal function is better. BP is stable, Avoid nephrotoxic agents. Creatinine is stable, possible at her baseline. HR and BP now controlled, on PO Cardizem. Continue same, avoid Nephrotoxins. Problem Qualifiers (1) Diabetes mellitus: Qualified Code: E11.22 - Type 2 diabetes mellitus with stage 3 chronic kidney disease, with long-term current use of insulin Bree Dill MD November 06, 2016 15:01
--- NOTE | 2016-11-06 19:28 | HHI.PR ---
Subjective Remarks 71 YOWF with COPD,RF, obesity No fever has cough, occ sputum On NC on Eliquis Appetite poor. Objective Vital Signs Vital Signs Date Time Temp Pulse Resp B/P Pulse Ox O2 Delivery O2 Flow Rate FiO2 11/06/16 17:42 100 Nasal Cannula 3.00 11/06/16 13:35 96.4 80 20 144/65 100 11/06/16 11:31 95 Nasal Cannula 3.00 11/06/16 09:36 Nasal Cannula 3.00 11/06/16 08:22 97.2 85 20 143/63 95 11/06/16 07:55 80 11/06/16 04:00 Nasal Cannula 3.00 11/06/16 04:00 97.5 88 18 149/68 100 11/06/16 00:00 98.0 78 16 132/60 98 11/06/16 00:00 Nasal Cannula 3.00 11/05/16 20:08 87 11/05/16 20:00 98.2 91 20 155/67 98 11/05/16 20:00 Nasal Cannula 3.00 11/05/16 19:49 97 Nasal Cannula 3.00 I/O 11/05/16 11/05/16 11/05/16 11/06/16 11/06/16 11/06/16 07:00 15:00 23:00 07:00 15:00 23:00 Intake Total 240 ml 240 ml 0 ml 0 ml Output Total 550 ml 1100 ml Balance -310 ml -860 ml 0 ml 0 ml Intake Oral 240 ml 240 ml 0 ml 0 ml Output Urine Total 550 ml 1100 ml # Voids 1 1 0 # Bowel Movements 1 0 Result Diagram: 11/04/16 0840 11/04/16 0840 Objective Remarks GENERAL: Obese female mild sob. SKIN: Warm and dry. HEAD: Normocephalic. EYES: No scleral icterus. No injection or drainage. NECK: Supple, trachea midline. No JVD or lymphadenopathy. CARDIOVASCULAR: Regular rate and rhythm without murmurs, gallops, or rubs. RESPIRATORY: Breath sounds equal bilaterally. No accessory muscle use. GASTROINTESTINAL: Abdomen soft, non-tender, nondistended. MUSCULOSKELETAL: No cyanosis, or edema. BACK: Nontender without obvious deformity. No CVA tenderness. A/P Assessment and Plan hypercapnoic RF COPD DM Nicotine use Obesity HTN PLAN: Aerosol nebs Supplement 02 Monitor BS and Lytes Eliquis 5 mg bid Encourage po intake. CPAP at nightPRN Pedro Manjarrez MD November 06, 2016 19:28
[2016-11-07] VITALS: BP 160/70; PULSE 85; RESP 22; TEMP 97.7; O2SAT 98
[2016-11-07 04:00] VITALS: BP 157/70; PULSE 90; RESP 22; TEMP 98; O2SAT 98
[2016-11-07] MEDS: INSULIN NovoLIN REGULAR SUPPLEMENTAL SCALE SQ SCH (05:00)
[2016-11-07] MEDS: DILTIAZEM HCL 30 MG TAB PO SCH ×2 (06:06→12:57)
[2016-11-07 08:00] VITALS: BP 136/65; PULSE 77; PULSE 94; RESP 20; TEMP 98; O2SAT 99
[2016-11-07 08:57] LABS: AUTOMATED NEUTROPHIL # 3.9 TH/MM3 (1.8-7.7); BASOPHIL % 0.4 % (0.0-2.0); EOSINOPHIL # 0.2 TH/MM3 (0-0.4); EOSINOPHIL % 3.1 % (0.0-4.0); HEMATOCRIT 33.1 % (35.0-46.0); HEMO FLAGS DIFF FINAL; LYMPH % 25.8 % (9.0-44.0); LYMPHOCYTE # 1.6 TH/MM3 (1.0-4.8); MEAN CELL VOLUME 88.3 FL (80.0-100.0); MEAN CORPUSCULAR HEMOGLOBIN 27.4 PG (27.0-34.0); MEAN CORPUSCULAR HGB CONC 31.1 % (32.0-36.0); MONO % 7.1 % (0.0-8.0); NEUT % 63.6 % (16.0-70.0); PLATELET COUNT 309 TH/MM3 (150-450); RED BLOOD COUNT 3.75 MIL/MM3 (4.00-5.30); RED CELL DISTRIBUTION WIDTH 20.9 % (11.6-17.2); WHITE BLOOD COUNT 6.1 TH/MM3 (4.0-11.0)
[2016-11-07] MEDS: SODIUM CHLORIDE 0.9% FLUSH 10 ML FLUSH IV FLUSH SCH (09:17)
[2016-11-07] MEDS: APIXABAN 5 MG TABLET PO SCH (09:17)
[2016-11-07] MEDS: FUROSEMIDE 40 MG/4 ML VIAL IV PUSH SCH (09:17)
[2016-11-07] MEDS: NICOTINE 7 MG/24 HR PATCH T-DERMAL SCH (09:17)
[2016-11-07] MEDS: ACETAMINOPHEN/HYDROcodone 325 MG/7.5 MG TAB PO PRN ×2 (09:17→16:21)
[2016-11-07] MEDS: guaiFENesin E.R. 600 MG TAB PO SCH (09:17)
[2016-11-07] MEDS: DOCUSATE SODIUM 50 MG/SENNA 8.6 MG TAB PO SCH (09:17)
[2016-11-07] MEDS: REMOVE OLD PATCH T-DERMAL SCH (09:18)
[2016-11-07 09:44] LABS: BICARBONATE 38.2 MEQ/L (21.0-32.0)
--- NOTE | 2016-11-07 11:09 | HHI.NPPN ---
Subjective General Problems: Anemia, Edema Renal Failure: Chronic, Acute, Stage III History of Present Illness 71-year-old female with a past medical history of hypertension, diabetes mellitus, hyperlipidemia, chronic obstructive pulmonary disease, cerebrovascular accident, transferred here from [facility], came to the hospital because of left-sided weakness. I was called to see the patient because of elevated BUN and creatinine. The patient has a creatinine of 2.0 on presentation. She previously has a creatinine of 1.5-1.6 but this was two years ago. Additional Remarks Patient is alert, no SOB, has been getting PT, swelling in arms and legs decreasing. Review of Systems General General Remarks Intubated and sedated. Objective Data Data 11/06/16 11/07/16 19:00 07:00 Intake Total 240 ml 240 ml Balance 240 ml 240 ml Intake Oral 240 ml 240 ml # Voids 2 # Bowel Movements 1 Vital Signs Date Time Temp Pulse Resp B/P Pulse Ox O2 Delivery O2 Flow Rate FiO2 11/07/16 08:00 98.0 94 20 136/65 99 11/07/16 04:00 98.0 90 22 157/70 98 11/07/16 00:00 97.7 85 22 160/70 98 11/06/16 20:00 97.6 89 22 137/63 98 11/06/16 20:00 Nasal Cannula 3.00 11/06/16 20:00 86 11/06/16 17:42 100 Nasal Cannula 3.00 11/06/16 16:00 97.5 85 20 131/62 97 11/06/16 13:35 96.4 80 20 144/65 100 11/06/16 11:31 95 Nasal Cannula 3.00 -: 11/07/16 0729 11/07/16 0729 Physical Exam General Appearance: No Acute Distress, Anxious Eyes Eye Exam: Pupils Equal Throat Throat Exam: Oral Mucosa [place] & Moist Neck Neck Exam: Neck Supple Pulmonary Resp Exam: No Distress, Rhonchi, Decreased Bases, Diminished Breath Sounds Cardiology CV Exam: Regular, Normal Sinus Rhythm Gastrointestinal/Abdomen GI Exam: Soft, Non-Tender, Bowel Sounds Present, Distended Extremeties Extremities Exam: Moderate Edema, Pitting Edema, Dependent Edema (Both legs has erythema and covered with dressing.) Neurologic Neuro Exam: Alert, Awake Assessment/Plan Assessment Summary: HIRAM/Acute Renal Failure, Fluid/Volume Overload, CKD Stage III Problem List: (1) Renal insufficiency (2) Leukocytosis (3) Encephalopathy (4) Diabetes mellitus (5) Acute worsening of stage 3 chronic kidney disease Plan Non oliguric. On Lasix once a day. Renal function is better. BP is stable, Avoid nephrotoxic agents. Creatinine is improving, now 1.44, possible at her baseline. HR and BP now controlled, on PO Cardizem. Continue same, avoid Nephrotoxins. Continue Lasix and follow urine out put. Problem Qualifiers (1) Diabetes mellitus: Qualified Code: E11.22 - Type 2 diabetes mellitus with stage 3 chronic kidney disease, with long-term current use of insulin Bree Dill MD November 07, 2016 11:09
[2016-11-07 11:11] VITALS: O2SAT 98
[2016-11-07 12:00] VITALS: BP 163/73; PULSE 94; RESP 20; TEMP 98.1; O2SAT 100
[2016-11-07] MEDS: PANTOPRAZOLE SOD 40 MG DELAYED RELEASE TAB PO SCH (12:57)
[2016-11-07] MEDS ORDERED: APIX5TAB PO (13:15)
[2016-11-07] MEDS ORDERED: BISA10R RECTAL (13:15)
[2016-11-07] MEDS ORDERED: SENN1TAB PO (13:15)
[2016-11-07] MEDS ORDERED: DILT31TA PO (13:15)
[2016-11-07] MEDS ORDERED: PANT40TA3 PO (13:15)
[2016-11-07] MEDS ORDERED: HYDR-3516 PO (13:15)
[2016-11-07] MEDS ORDERED: FURO40TA PO (13:15)
--- NOTE | 2016-11-07 13:15 | HHI.DCPOC ---
Discharge Care Plan Diagnosis: (1) Hyperkalemia (2) Encephalopathy (3) Elevated troponin I level (4) Acute worsening of stage 3 chronic kidney disease (5) Renal insufficiency (6) Constipation (7) Dyspnea (8) Hyperglycemia (9) Debility (10) Pain (11) NSTEMI (non-ST elevated myocardial infarction) (12) PAROXYSMAL ATRIAL FIBRILLATION (13) HTN (hypertension) (14) MRSA (methicillin resistant staphylococcus aureus) pneumonia (15) LAXMI on CPAP (16) History of CVA with residual deficit (17) Diabetes mellitus (18) Leukocytosis (19) Sepsis (20) UTI (urinary tract infection) Goals to Promote Your Health * To prevent worsening of your condition and complications * To maintain your health at the optimal level Directions to Meet Your Goals Take your medications as prescribed Follow your dietary instruction Follow activity as directed Keep your appointments as scheduled Take your immunizations and boosters as scheduled If your symptoms worsen call your PCP, if no PCP go to Urgent Care Center or Emergency Room Smoking is Dangerous to Your Health. Avoid second hand smoke Call the 24-hour hour crisis hotline for domestic abuse at Ash Leahy MD November 07, 2016 13:15
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
--- NOTE | 2016-11-07 13:23 | HHI.PR ---
Subjective Remarks Follow-up respiratory failure, pneumonia, poor oral intake. The patient and her daughter state that the patient is eating better today. The patient is able to tell me everything that she ate for breakfast and lunch. She states that she feels much better. She is hoping to be discharged to rehabilitation soon. Objective Vitals Vital Signs Date Time Temp Pulse Resp B/P Pulse Ox O2 Delivery O2 Flow Rate FiO2 11/07/16 12:00 98.1 94 20 163/73 100 11/07/16 11:11 98 Nasal Cannula 3.00 11/07/16 08:00 98.0 94 20 136/65 99 11/07/16 04:00 98.0 90 22 157/70 98 11/07/16 00:00 97.7 85 22 160/70 98 11/06/16 20:00 97.6 89 22 137/63 98 11/06/16 20:00 Nasal Cannula 3.00 11/06/16 20:00 86 11/06/16 17:42 100 Nasal Cannula 3.00 11/06/16 16:00 97.5 85 20 131/62 97 11/06/16 13:35 96.4 80 20 144/65 100 I/O 11/06/16 11/06/16 11/06/16 11/07/16 11/07/16 11/07/16 07:00 15:00 23:00 07:00 15:00 23:00 Intake Total 0 ml 240 ml 240 ml Balance 0 ml 240 ml 240 ml Intake Oral 0 ml 240 ml 240 ml # Voids 0 2 # Bowel Movements 0 1 Result Diagram: 11/07/16 0729 11/07/16 0729 Imaging Last Impressions Chest X-Ray 10/27/16 0000 Signed Impressions: Service Date/Time: Thursday, October 27, 2016 12:27 - CONCLUSION: 1. ET tube in a somewhat low position approximately 1.6 cm above the kimberlyn. This could be pulled back to a better position by pulling it back 1 to 2 cm. 2. Suspected atelectasis at the right lung base. King Brown MD Renal Ultrasound 10/25/16 0000 Signed Impressions: Service Date/Time: October 10:11 - CONCLUSION: 1. Lower pole right renal cyst measuring 4.2 x 3.3 x 4.6 cm. 2. No hydronephrosis, solid mass or calcified calculus. 3. Poor visualization of the bladder due to nondistention. Jaime Norris MD Head CT 10/24/16 0000 Signed Impressions: Service Date/Time: Monday, October 24, 2016 16:56 - CONCLUSION: 1. No acute findings in the brain. 2. Right paranasal sinus disease with air-fluid levels. Anthony Lockhart MD Lower Extremity Ultrasound 10/23/16 0000 Signed Impressions: Service Date/Time: Sunday, October 23, 2016 13:47 - CONCLUSION: The study is negative for deep venous thrombosis bilateral lower extremity. Anthony Lockhart MD Objective Remarks General: Obese elderly female in no acute distress. Heart: Regular rate and rhythm. No murmur. Lungs: Clear to auscultation bilaterally. No wheezes, rales, or rhonchi. Breathing is nonlabored. Abdomen: Soft, nontender, nondistended. Extremities: Trace bilateral lower extremity edema. Psych: Alert and oriented. Procedures intubation/ extubation Urinary Catheter: No Vascular Central Line Catheter: No A/P Problem List: (1) Sepsis ICD Code: A41.9 Status: Resolved (2) Acute worsening of stage 3 chronic kidney disease ICD Code: N18.3 Status: Acute (3) Elevated troponin I level ICD Code: R74.8 Status: Acute (4) Encephalopathy ICD Code: G93.40 Status: Acute (5) Leukocytosis ICD Code: D72.829 Status: Resolved (6) Diabetes mellitus ICD Code: E11.9 Status: Chronic (7) UTI (urinary tract infection) ICD Code: N39.0 Status: Resolved (8) Hyperkalemia ICD Code: E87.5 Status: Acute (9) MRSA (methicillin resistant staphylococcus aureus) pneumonia ICD Code: J15.212 Status: Acute Assessment and Plan 1. Acute respiratory failure: Improved. Appreciate pulmonology recommendations. Patient was extubated 10/27/16. Continue supplemental oxygen, nebulizer treatments. 2. Sepsis: Resolved. 3. MRSA pneumonia: Completed 10 day course of Zyvox. Appreciate infectious disease recommendations. 4. Acute worsening of chronic kidney disease stage III: Appreciate nephrology recommendations. Creatinine has improved during the hospitalization. 5. Encephalopathy: Multifactorial. Improved. 6. Atrial fibrillation: Rate is now controlled. Continue Cardizem. Appreciate cardiology recommendations. Continue oral anticoagulation with Eliquis. 7. Mild troponin elevation: Likely secondary to respiratory failure. 8. Hypertension: Continue Cardizem. 9. Diabetes mellitus: Monitor Accu-Cheks and cover with sliding scale insulin. 10. Bilateral lower extremity cellulitis: Continue antibiotics. Continue wound care. 11. Obstructive sleep apnea: BiPAP at night; patient has been refusing. 12. Poor oral intake appreciate dietary recommendations. Calorie count requested. Oral intake improving. 13. GI prophylaxis: PPI. 14. DVT prophylaxis: Continue Eliquis. Discharge Planning Plan for discharge to SNF when arrangements are made. Patient has been accepted at [facility] and we are currently awaiting insurance authorization. Problem Qualifiers (1) Sepsis: Qualified Code: A41.02 - Sepsis due to methicillin resistant Staphylococcus aureus (MRSA) (2) Diabetes mellitus: Qualified Code: E11.22 - Type 2 diabetes mellitus with stage 3 chronic kidney disease, with long-term current use of insulin Ash Leahy MD November 07, 2016 13:23
[2016-11-07 16:00] VITALS: BP 165/76; PULSE 88; RESP 20; TEMP 98; O2SAT 99
[2016-11-07] MEDS ORDERED: INSULIN NovoLIN REGULAR SUPPLEMENTAL SCALE SQ SCH (16:00)
== END 2016-11-07 19:28 | DRG 871 ==
LOC: PHED 11:32 → PHEDA 15:55 → PHEDH 19:55 → PHICU 10-24 07:56 → HIMN 10-24 11:38 → HCIS 10-30 20:22 → N04A 11-03 16:15
PROVIDERS: ADMIT Family Medicine; ATTEND Family Medicine
PROC: 5A1945Z Respiratory Ventilation, 24-96 Consecutive Hours (ICD-10-PCS; principal; 2016-10-24)
PROC: 0BH17EZ Insertion of Endotracheal Airway into Trachea, Via Natural or Artificial Opening (ICD-10-PCS; 2016-10-24)
PROC: 5A09557 Assistance with Respiratory Ventilation, Greater than 96 Consecutive Hours, Continuous Positive Airway Pressure (ICD-10-PCS; 2016-10-27)
DX: A41.9 Sepsis, unspecified organism (principal); G93.40 Encephalopathy, unspecified; J96.02 Acute respiratory failure with hypercapnia; I21.4 Non-ST elevation (NSTEMI) myocardial infarction; N17.9 Acute kidney failure, unspecified; J15.212 Pneumonia due to Methicillin resistant Staphylococcus aureus; Z99.11 Dependence on respirator [ventilator] status; N18.3 Chronic kidney disease, stage 3 (moderate); E87.2 Acidosis; I69.354 Hemiplegia and hemiparesis following cerebral infarction affecting left non-dominant side; Z68.42 Body mass index [BMI] 45.0-49.9, adult; L03.115 Cellulitis of right lower limb; L03.116 Cellulitis of left lower limb; J44.0 Chronic obstructive pulmonary disease with (acute) lower respiratory infection; N39.0 Urinary tract infection, site not specified; E11.65 Type 2 diabetes mellitus with hyperglycemia; E87.5 Hyperkalemia; E78.5 Hyperlipidemia, unspecified; G47.33 Obstructive sleep apnea (adult) (pediatric); F17.290 Nicotine dependence, other tobacco product, uncomplicated; Z96.641 Presence of right artificial hip joint; D64.9 Anemia, unspecified; M19.90 Unspecified osteoarthritis, unspecified site; E66.01 Morbid (severe) obesity due to excess calories; M10.9 Gout, unspecified; I12.9 Hypertensive chronic kidney disease with stage 1 through stage 4 chronic kidney disease, or unspecified chronic kidney disease; E03.9 Hypothyroidism, unspecified; E11.22 Type 2 diabetes mellitus with diabetic chronic kidney disease; N28.1 Cyst of kidney, acquired; E87.70 Fluid overload, unspecified; K59.00 Constipation, unspecified; I48.0 Paroxysmal atrial fibrillation; Z51.5 Encounter for palliative care; Z79.4 Long term (current) use of insulin
CPT/HCPCS: 31500; 36600; 70450; 71010; 76775; 76937; 80048; 80053; 81001; 82550; 82728; 82805; 82948; 83036; 83540; 83550; 83605; 83735; 83880; 84132; 84443; 84484; 85025; 85610; 85730; 86403; 87040; 87070; 87086; 87147; 87186; 87205; 87641; 93005; 93306; 93970; 94002; 94003; 94150; 94640; 94664; 96361; 96365; 96375; C9113; J0330; J0610; J1170; J1644; J1815; J1940; J2270; J2405; J2543; J3370; J7030; J7040; J7050; J7611

== ENCOUNTER 2017-02-23 13:34 | Inpatient (IN) | payer OTHER, MEDICARE ==
[~2017-02-23] VITALS: Ht 165.1 cm; Wt 107.1 kg
[2017-02-23] VITALS (16 sets, daily range): BP systolic 81–164; BP diastolic 39–75; PULSE 56–84; RESP 12–18; TEMP 95.4–98.3; O2SAT 99–100
[~2017-02-23 13:34] MED LIST changes: +APIX5TAB PO; -BACT800T5 PO; +BISA10R RECTAL; +DILT31TA PO; +FURO40TA PO; -HYDR-2768 PO; +HYDR-3516 PO; -LANTUS2P SC; -LOVA1TAB47 PO; -METO25 PO; +PANT40TA3 PO; -PRIN20TA2 PO; -PROP20TA3 PO; +SENN1TAB PO
[2017-02-23 14:01] LABS: MEAN CORPUSCULAR HGB CONC 29.8 % (32.0-36.0)
[2017-02-23] MEDS ORDERED: SUCCINYLCHOLINE CHLORIDE 200 MG/10 ML VIAL IVP ONE (14:15)
[2017-02-23] MEDS ORDERED: SODIUM CHLORIDE 0.9% FLUSH 10 ML FLUSH IVF PRN (14:15)
[2017-02-23] MEDS ORDERED: ETOMIDATE 20 MG/10 ML VIAL IVP ONE (14:15)
[2017-02-23] MEDS ORDERED: PROPOFOL 1000 MG/100 ML INJ 100 ML IV SCH (14:15)
[2017-02-23 15:01] LABS: AUTOMATED NEUTROPHIL # 19.4 TH/MM3 (1.8-7.7); BASOPHIL % 0.1 % (0.0-2.0); EOSINOPHIL % 0.1 % (0.0-4.0); HEMATOCRIT 24.8 % (35.0-46.0); LYMPH % 9.8 % (9.0-44.0); LYMPHOCYTE # 2.2 TH/MM3 (1.0-4.8); MEAN CELL VOLUME 82.1 FL (80.0-100.0); MEAN CORPUSCULAR HEMOGLOBIN 24.5 PG (27.0-34.0); MONO % 2.4 % (0.0-8.0); NEUT % 87.6 % (16.0-70.0); PLATELET COUNT 492 TH/MM3 (150-450); RED BLOOD COUNT 3.02 MIL/MM3 (4.00-5.30); RED CELL DISTRIBUTION WIDTH 19.9 % (11.6-17.2); WHITE BLOOD COUNT 22.2 TH/MM3 (4.0-11.0)
--- NOTE | 2017-02-23 15:08 | RADRPT ---
EXAM DATE/TIME: 02/23/2017 14:43 [facility] COMPARISON: CHEST SINGLE AP, October 27, 2016, 12:27. INDICATIONS : Post Procedure MEDICAL HISTORY : Hypertension. Cardiovascular disease. Cerebrovascular disease. Diabetes SURGICAL HISTORY : None. ENCOUNTER: Initial ACUITY: 1 day PAIN SCORE: Non-responsive. LOCATION: Bilateral chest FINDINGS: ET tube is present with tip overlapping approximately 1 cm above the kimberlyn. Bibasilar opacities are present may be due to a combination of consolidation and or pleural effusion. There is also right per ihilar consolidation. The rest of the examination has not significantly changed. CONCLUSION: Bibasilar opacities are present may be due to a combination of consolidation and or pleural effusion and the right perihilar consolidation. Gregory Wells MD on February 23, 2017 at 15:06 Board Certified Radiologist. This report was verified electronically.
[2017-02-23 15:15] LABS: APTT (PATIENT) 39.2 SEC (24.3-30.1); INTERNATIONAL NORMALIZED RATIO 1.2 RATIO; PROTHROMBIN TIME - PATIENT 13.7 SEC (9.8-11.6)
[2017-02-23] MEDS ORDERED: MIDAZOLAM HCL 2 MG/2 ML VIAL IV ONE (15:15)
[2017-02-23] MEDS ORDERED: MIDAZOLAM 100 MG/100 ML INJ 100 ML IV SCH ×2 (15:15→17:30)
[2017-02-23] MEDS ORDERED: PIPERACIL-TAZO 4.5 GM PREMIX 100 ML IV STA (15:15)
[2017-02-23] MEDS ORDERED: SODIUM CHLOR 0.9% 1000 ML INJ 1,000 ML IV ONE ×2 (15:15→15:45)
[2017-02-23] MEDS ORDERED: AZITHROMYCIN INJ 500 MG in SODIUM CHLOR 0.9% 250 ML INJ 250 ML IV STA (15:15)
[2017-02-23 15:21] LABS: HEMO FLAGS AUTO DIFF
[2017-02-23 15:25] LABS: BICARBONATE 30.7 MEQ/L (21.0-32.0); MAGNESIUM 1.7 MG/DL (1.5-2.5)
[2017-02-23 15:27] LABS: POTASSIUM 4.4 MEQ/L (3.5-5.1)
[2017-02-23] MEDS ORDERED: SODIUM CHLOR 0.9% 250 ML INJ 250 ML IV ONE ×2 (15:30→17:00)
[2017-02-23] MEDS ORDERED: DEXTROSE 50% IN WATER 50 ML SYRINGE IV ONE (15:30)
[2017-02-23] MEDS ORDERED: VANCOMYCIN INJ 1,000 MG in SODIUM CHLOR 0.9% 250 ML INJ 250 ML IV ONE (15:30)
[2017-02-23 15:31] LABS: CALCIUM-PROTEIN CORRECTED 7.5 MG/DL (8.5-10.1); TOTAL BILIRUBIN ADULT 0.4 MG/DL (0.2-1.0)
--- NOTE | 2017-02-23 15:42 | RADRPT ---
EXAM DATE/TIME: 02/23/2017 15:20 [facility] COMPARISON: CT BRAIN W/O CONTRAST, October 24, 2016, 16:56. INDICATIONS : Found unresponsive RADIATION DOSE: 69.15 CTDIvol (mGy) ; Patient body habitus MEDICAL HISTORY : Cerebrovascular disease. Cardiovascular disease Hypertension. SURGICAL HISTORY : Appendectomy. Cholecystectomy. ENCOUNTER: Initial ACUITY: 1 day PAIN SCALE: Non-responsive LOCATION: cranial TECHNIQUE: Multiple contiguous axial images were obtained of the head. Using automated exposure control and adj ustment of the mA and/or kV according to patient size, radiation dose was kept as low as reasonably a chievable to obtain optimal diagnostic quality images. DICOM format image data is available electro nically for review and comparison. FINDINGS: There is no evidence for intracranial hemorrhage, mass effect, mass lesions, edema, or extra-axial fl uid collections. The visualized bony structures appear intact. The ventricles are normal size for t he patient's age. There are no signs of acute infarction for technique. CONCLUSION: Unremarkable study. Gregory Wells MD on February 23, 2017 at 15:39 Board Certified Radiologist. This report was verified electronically.
[2017-02-23 15:59] LABS: BANDS 1 % (0-6); BASOPHILS 1 % (0-2); CORRECTED NUCLEATED RBC 1 /100 WBC (0-0); MYELOCYTES 2 % (0-0); NEUTROPHIL # MANUAL DIFF 20.6 TH/MM3 (1.8-7.7); POLYS (SEG NEUTROPHILS) 88 % (16-70); PROMYELOCYTES 2 % (0-0); WBC DIFF SAMPLE 100
[2017-02-23 16:00] LABS: PLATELET ESTIMATE SMEAR HIGH (NORMAL); PLATELET MORPHOLOGY NORMAL (NORMAL); SCAN/DIFF FINAL DIFF MANUAL; STOMATOCYTES 1+ (NORMAL); TARGET CELLS 1+ (NORMAL)
[2017-02-23 16:04] LABS: BLOOD, URINE NEG (NEG); GLUCOSE,URINE NEG (NEG); HYALINE CAST, URINE 2 /lpf (RARE); KETONE, URINE NEG (NEG); NITRITE,URINE NEG (NEG); SQUAMOUS EPITHELIAL CELL URINE 1 /hpf (0-5); URINE COLOR YELLOW (YELLW/STRAW)
[2017-02-23 16:05] LABS: COMMENT (UR) CATH-CULTURE IND; CULTURE IF INDICATED CATH CULTURE IND
[2017-02-23] MEDS: fentaNYL DRIP 250 ML IV SCH (16:19)
--- NOTE | 2017-02-23 16:25 | PD ---
HPI Chief Complaint: Altered Mental Status Time Seen by Provider: 14:00 Travel History International Travel<30 days: No Contact w/Intl Traveler<30days: No Traveled to known affect area: No History of Present Illness HPI 72-year-old female presents by ambulance with altered mental status since per her roommate. Patient is unresponsive here and cannot provide any history. EMS states that her GCS improved slightly with 2 of Narcan. Here she only moans with sternal rub. PFSH Past Medical History Narrative Medical By records Arthritis: Yes Autoimmune Disease: No Cancer: No Cardiovascular Problems: Yes High Cholesterol: Yes Cerebrovascular Accident: Yes (LEFT SIDED WEAKNESS 2004) Diabetes: Yes Patient Takes Glucophage: No Diminished Hearing: No Endocrine: No Genitourinary: No Headaches: Yes Hypertension: Yes Musculoskeletal: Yes Respiratory: Yes Sleep Apnea: Yes (cpap at night) Menopausal: Yes : 6 Para: 4 Miscarriage: 2 Past Surgical History Narrative Surgical By records Abdominal Surgery: Yes ("INTESTINAL HERNIA") Appendectomy: Yes Cholecystectomy: Yes Joint Replacement: Yes (RIGHT HIP 1999) Other Surgery: Yes Social History Narrative Social History By records Alcohol Use: No Tobacco Use: Yes ("snuff powder" since a child) Substance Use: No Allergies-Medications (Allergen,Severity, Reaction): Coded Allergies: *MDRO Multi-Drug Resistant Organism (Verified Adverse Reaction, Unknown, ) MRSA PCR Screen POSITIVE - 10/24/2016 MRSA (sputum)-10/24/16 Reported Meds & Prescriptions Reported Meds & Active Scripts Active Furosemide 40 Mg Tab 40 Mg PO DAILY Senna Plus 8.6-50 mg (Sennosides-Docusate Sodium) 1 Tab Tab 1 Tab PO DAILY Pantoprazole (Pantoprazole Sodium) 40 Mg Tab 40 Mg PO Q24H Hydrocodone-Acetaminophen 5-325 mg Tab 1 Tab PO Q4H PRN Cardizem (Diltiazem HCl) 30 Mg Tab 60 Mg PO Q8HR Bisac-Evac Supp (Bisacodyl) 10 Mg Supp 10 Mg RECTAL DAILY PRN Eliquis (Apixaban) 5 Mg Tab 5 Mg PO BID Review of Systems ROS Limitations: Clinical Condition, Altered Mental Status Physical Exam Exam Limitations: Clinical Condition, Altered Mental Status Narrative General: In severe distress, focused exam performed Skin: Warm and diaphoretic Eyes: Pupils equal Neck: Trachea midline Cardiovascular: Regular rate and rhythm Respiratory: Decreased respiratory effort, clear at apices Abdomen: Soft, nondistended Neuro: Only responds to sternal rub with moaning, opening eyes and movement of arms Data Data Last Documented VS Vital Signs Date Time Temp Pulse Resp B/P Pulse Ox O2 Delivery O2 Flow Rate FiO2 02/23/17 15:46 68 18 91/43 100 02/23/17 15:10 100 02/23/17 14:54 Ventilator Orders Electrocardiogram (02/23/17 14:00) Complete Blood Count With Diff (02/23/17 14:00) Comprehensive Metabolic Panel (02/23/17 14:00) Prothrombin Time / Inr (Pt) (02/23/17 14:00) Act Partial Throm Time (Ptt) (02/23/17 14:00) Lactic Acid Sepsis Protocol (02/23/17 14:00) Magnesium (Mg) (02/23/17 14:00) Phosphorus (Po4) (02/23/17 14:00) Ckmb (Isoenzyme) Profile (02/23/17 14:00) Troponin I (02/23/17 14:00) Urinalysis - C+S If Indicated (02/23/17 14:00) Blood Culture (02/23/17 14:00) Chest, Single Ap (02/23/17 14:00) Arterial Blood Gas (Abg) (02/23/17 14:00) Blood Glucose (02/23/17 14:00) Ecg Monitoring (02/23/17 14:00) Iv Access Insert/Monitor (02/23/17 14:00) Oximetry (02/23/17 14:00) Urinary Catheter Insert/Apply (02/23/17 14:00) Ct Brain W/O Iv Contrast(Rout) (02/23/17 14:00) Ng Gastric Tube Insert/Monitor (02/23/17 14:01) Etomidate Inj (Amidate Inj) (02/23/17 14:15) Succinylcholine Inj (Quelicin Inj) (02/23/17 14:15) Sodium Chloride 0.9% Flush (Ns Flush) (02/23/17 14:15) Propofol 1000 Mg/100 Ml Inj (Diprivan 10 (02/23/17 14:15) ^ Infusion (02/23/17 14:01) RASS (02/23/17 14:01) Neurological Rass Scale PARK.Q2H (02/23/17 14:01) Midazolam Inj (Versed Inj) (02/23/17 15:15) Midazolam 100 Mg/Ml Inj (Versed 100 Mg/M (02/23/17 15:15) Neurological Rass Scale Q30MX2,Q2HX4,Q4H (02/23/17 15:11) Sodium Chlor 0.9% 1000 Ml Inj (Ns 1000 M (02/23/17 15:15) Piperacil-Tazo 4.5 Gm Premix (Zosyn 4.5 (02/23/17 15:15) Azithromycin Inj (Zithromax Inj) (02/23/17 15:15) B-Type Natriuretic Peptide (02/23/17 15:15) Red Blood Cells (Rbc) (02/23/17 15:23) Blood Product Administration .UPON TRANSFUSION (02/23/17 15:23) Sodium Chlor 0.9% 250 Ml Inj (Ns 250 Ml (02/23/17 15:30) Vancomycin Inj (Vancomycin Inj) (02/23/17 15:30) Type And Screen (02/23/17 15:23) Dextrose 50% In [place] (Syr) Inj (D50w (Syr (02/23/17 15:30) Blood Glucose (02/23/17 15:37) Sodium Chlor 0.9% 1000 Ml Inj (Ns 1000 M (02/23/17 15:45) Admit Order (Ed Use Only) (02/23/17 15:45) Drug Screen, Random Urine (02/23/17 15:44) Neurological Rass Scale Q30MX2,Q2HX4,Q4H (02/23/17 15:44) Fentanyl Drip (Fentanyl Drip) (02/23/17 16:00) Sputum Culture And Gram Stain (02/23/17 15:44) Urinary Catheter Management PARK.Q8H (02/23/17 15:44) Labs Laboratory Tests Test 02/23/17 02/23/17 14:30 15:10 White Blood Count 22.2 TH/MM3 Red Blood Count 3.02 MIL/MM3 Hemoglobin 7.4 GM/DL Hematocrit 24.8 % Mean Corpuscular Volume 82.1 FL Mean Corpuscular Hemoglobin 24.5 PG Mean Corpuscular Hemoglobin 29.8 % Concent Red Cell Distribution Width 19.9 % Platelet Count 492 TH/MM3 Mean Platelet Volume 8.2 FL Neutrophils (%) (Auto) 87.6 % Lymphocytes (%) (Auto) 9.8 % Monocytes (%) (Auto) 2.4 % Eosinophils (%) (Auto) 0.1 % Basophils (%) (Auto) 0.1 % Neutrophils # (Auto) 19.4 TH/MM3 Lymphocytes # (Auto) 2.2 TH/MM3 Monocytes # (Auto) 0.5 TH/MM3 Eosinophils # (Auto) 0.0 TH/MM3 Basophils # (Auto) 0.0 TH/MM3 CBC Comment AUTO DIFF Differential Total Cells 100 Counted Neutrophils % (Manual) 88 % Band Neutrophils % 1 % Lymphocytes % 5 % Monocytes % 1 % Basophils % 1 % Neutrophils # (Manual) 20.6 TH/MM3 Myelocytes 2 % Promyelocytes 2 % Nucleated Red Blood Cells 1 /100 WBC Differential Comment FINAL DIFF MANUAL Platelet Estimate HIGH Platelet Morphology Comment NORMAL Target Cells 1+ Stomatocytes 1+ Prothrombin Time 13.7 SEC Prothromb Time International 1.2 RATIO Ratio Activated Partial 39.2 SEC Thromboplast Time Sodium Level 145 MEQ/L Potassium Level 4.4 MEQ/L Chloride Level 107 MEQ/L Carbon Dioxide Level 30.7 MEQ/L Anion Gap 7 MEQ/L Blood Urea Nitrogen 86 MG/DL Creatinine 1.97 MG/DL Estimat Glomerular Filtration 25 ML/MIN Rate Random Glucose 44 MG/DL Lactic Acid Level 1.0 mmol/L Calcium Level 6.9 MG/DL Protein Corrected Calcium 7.5 MG/DL Phosphorus Level 5.1 MG/DL Magnesium Level 1.7 MG/DL Total Bilirubin 0.4 MG/DL Aspartate Amino Transf 47 U/L (AST/SGOT) Alanine Aminotransferase 22 U/L (ALT/SGPT) Alkaline Phosphatase 236 U/L Total Creatine Kinase 28 U/L Troponin I 0.11 NG/ML Total Protein 6.0 GM/DL Albumin 1.6 GM/DL Urine Color YELLOW Urine Turbidity HAZY Urine pH 5.0 Urine Specific [place] 1.014 Urine Protein NEG mg/dL Urine Glucose (UA) NEG mg/dL Urine Ketones NEG mg/dL Urine Occult Blood NEG Urine Nitrite NEG Urine Bilirubin NEG Urine Urobilinogen LESS THAN 2.0 MG/DL Urine Leukocyte Esterase TRACE Urine RBC 1 /hpf Urine WBC 8 /hpf Urine Squamous Epithelial 1 /hpf Cells Urine Hyaline Casts 2 /lpf Microscopic Urinalysis Comment CATH-CULTURE IND MDM Medical Decision Making Medical Screen Exam Complete: Yes Emergency Medical Condition: Yes Medical Record Reviewed: Yes (past history confirmed) Interpretation(s) EKG is sinus rhythm at 70 without STEMI criteria CBC & BMP Diagram 02/23/17 14:30 Last [address] 02/23/17 1400 Signed Impressions: Service Date/Time: Thursday, February 23, 2017 15:20 - CONCLUSION: Unremarkable study. Gregory Wells MD Chest X-Ray 02/23/17 1400 Signed Impressions: Service Date/Time: Thursday, February 23, 2017 14:43 - CONCLUSION: Bibasilar opacities are present may be due to a combination of consolidation and or pleural effusion and the right perihilar consolidation. Gregory Wells MD Initial Accu-Chek 57, on review of BMP was given an amp of dextrose and on recheck was 110 Differential Diagnosis Hyponatremia, bleed, sepsis, UTI, hypoglycemia..... Narrative Course Patient arrived with significantly decreased GCS, and intubated for airway protection, chest x-ray confirmed ET tube, lab work sent, sedation ordered, patient went to CT after sedation medications were adjusted given propofol lead to hypotension she was changed to Versed drip. CT reviewed and showed no bleed. Patient was given glucose for hypoglycemia and antibiotics ordered for leukocytosis. Stool does not look overtly bloody, 1 unit of blood ordered for anemia and IV fluid bolus given for hypotension. Patient will be admitted to the hospital for further care. Critical Care Narrative Aggregate critical care time was 60 minutes. Time to perform other separately billable procedures was not included in the critical care time. My time did not include minutes spent treating any other patients simultaneously or on activities that did not directly contribute to the patient's treatment. The services I provided to this patient were to treat and/or prevent clinically significant deterioration that could result in: Shock, I provided critical care services requiring my management, as noted below: Chart data review, documentation time, medication orders and management, vital sign assessments/reviewing monitor data, ordering and reviewing lab tests, ordering and interpreting/reviewing x-rays and diagnostic studies, care of the patient and discussion of the patient with the admitting physicians. Procedures Procedure Narrative Emergently performed: INTUBATION: The patient was put in optimal position for the procedure but was not able to straighten her neck and maintained and flexed position even after medications. Rapid sequence intubation was initiated by me using 40 milligrams of etomidate IV and 100 milligrams of succinylcholine IV. The patient was intubated with a 7.5 cuffed endotracheal tube. Tube placement was confirmed by visualization of the tube and balloon passing through the cords, capnometry and subsequent chest x-ray with video laryngoscopy after unable to visualized with direct laryngoscopy. Breath sounds were equal and well aerated bilaterally postintubation. No breath sounds over stomach. Patient tolerated procedure well. Physician Communication Physician Communication dr brown agrees to admit Diagnosis Primary Impression: Altered mental status Qualified Code: R41.82 - Altered mental status, unspecified altered mental status type Additional Impressions: Acute respiratory failure Qualified Code: J96.00 - Acute respiratory failure, unspecified whether with hypoxia or hypercapnia Anemia Qualified Code: D64.9 - Anemia, unspecified type Hypoglycemia Leukocytosis Qualified Code: D72.829 - Leukocytosis, unspecified type Elevated troponin I level Admitting Information Admitting Physician Requests: Admit Sharlene Welsh MD Feb 23, 2017 16:25
[2017-02-23 16:38] LABS: BLOOD GAS BASE EXCESS 6.2 mmol/L (-2-2); BLOOD GAS CARBOXYHEMOGLOBIN 1.6 % (0-4); BLOOD GAS HCO3 30 mmol/L (22-26); BLOOD GAS O2 HGB SATURATION 99 % (90-100); BLOOD GAS OXYGEN CONTENT 9.6 Vol % (12.0-20.0); BLOOD GAS PCO2 43 mmHg (38-42); BLOOD GAS PO2 227 mmHG (61-120); BLOOD GAS TOTAL HGB 6.5 G/DL (12.0-16.0); CRITICAL VALUE YES; OXYGEN DEVICE VENTILATOR; TEMP CORR TO 98.6
[2017-02-23 16:39] LABS: DRAW SITE RT RADIAL; FIO2 100 %; NUMBER OF ARTERIAL PUNCTURES 1; STAT YES; ULNAR PULSE PRESENT; VENT SETTINGS 500/16/+5
--- NOTE | 2017-02-23 16:40 | HHI.HP ---
[facility] Service Critical Care Medicine Primary Care Physician Handy Nails MD Admission Diagnosis altered mental status, sepsis, anemia, hypoglycemia Diagnosis: Travel History International Travel<30 Days: No Contact w/Intl Traveler <30 Da: No Traveled to Known Affected Are: No History of Present Illness 72-year-old female with past medical history of hypertension, IDDM , obesity, Sleep apnea on home C Pap, hyperlipidemia, prior stroke with residual left side weakness, COPD who presents to [facility] with history of altered mental status x2 days. Her son states yesterday she slept most of the day yesterday; did not eat all day.. She had stayed home with her neice all day but when her son came home from work he was able to arouse her and gave her some icecream and Lantus 37 units. EVAC administered Narcan without response. Upon arrival ED physician states she was moaning to noxious stimuli and required intubation for airway protection. Glucose was 44 and she was given amp of D50. She was afebrile but findings were consistent with severe sepsis including white blood cell count 22, chest x-ray with left lower lobe and right perihilar opacities. UA had trace LE and [address] brain showed no acute abnormality. She was given azithromycin, Zosyn in the emergency department. Blood cultures and urine cultures have been obtained. She was started on propofol initially for sedation but became hypotensive so was given 2 L normal saline bolus and started on a Versed drip. She has been recently admitted 10/24/16 through 11/07. She had been sent to [place] emergency Department for atrial fibrillation with RVR rate in the 120s and then subsequently was discovered to have hypercapnic respiratory failure. She had also been treated for MRSA pneumonia. Unable to obtain further review of systems from patient because she is intubated. Review of Systems ROS Limitations: Intubated Past Family Social History Allergies: Coded Allergies: *MDRO Multi-Drug Resistant Organism (Verified Adverse Reaction, Unknown, ) MRSA PCR Screen POSITIVE - 10/24/2016 MRSA (sputum)-10/24/16 Past Medical History Paroxysmal atrial fibrillation on chronic anticoagulation Objective sleep apnea on home C Pap Diabetes mellitus Hypertension Hyperlipidemia Stroke with residual left-sided hemiparesis COPD Incontinent of urine For the last year she has not been able to ambulate unassisted. She uses a walker. Hasnt' been able Has a hospital bed, bedside . Uses a wheelchari Past Surgical History Hernia repair Appendectomy Cholecystectomy Right hip replacement Reported Medications Eliquis 5 mill grams by mouth twice a day Cardizem 60 g by mouth every 8 hours Bisacodyl 10 mg [facility] when necessary Tachycardia state Center one by mouth daily Lasix 40 g by mouth daily Lortab 5/325 one by mouth every 4 hours when necessary pain Pantoprazole 40 mill grams by mouth daily Lantus 70/30 37 unit qhs. Family History Unable to obtain directly from patient due to mental status. Patient's son is not aware of details of family medical history. Mother of cancer. Says they weren't close with her dad so uncertain of his medical history. Social History . Has 3 living adult children. Uses snuff No history of alcohol or illicit drug use Lives with her son. She was previously living with her daughter Noemí who few weeks ago. Physical Exam Vital Signs Vital Signs Date Time Temp Pulse Resp B/P Pulse Ox O2 Delivery O2 Flow Rate FiO2 02/23/17 16:25 98.3 02/23/17 16:24 70 16 139/65 100 02/23/17 16:06 74 16 139/65 100 Ventilator 100 02/23/17 16:04 100 02/23/17 15:46 68 18 91/43 100 02/23/17 15:10 100 100 02/23/17 14:54 66 18 81/39 100 Ventilator 100 02/23/17 14:51 100 Ventilator 02/23/17 13:58 84 12 164/75 99 02/23/17 13:55 100 100 Physical Exam GENERAL: Obese female who is orotracheally intubated, anasarca SKIN: Warm and dry. There is an estimated 5 cm stage II decubitus ulcer on left buttocks and estimated 1.5 cm decubitus ulcer on right buttocks (present on admission) HEAD: Atraumatic. Normocephalic. EYES: Pupils pinpoint bilaterally. No scleral icterus. No injection or drainage. ENT: No nasal bleeding or discharge. Mucous membranes dry NECK: Trachea midline. Thick neck, unable to appreciate JVD. CARDIOVASCULAR: Regular rate and rhythm. No murmurs rubs or gallops appreciated. RESPIRATORY: Or tracheally intubated. Synchronous with ventilator. Coarse breath sounds bilaterally with rhonchi. No wheezes or Rales GASTROINTESTINAL: Abdomen obese, soft, bowel sounds present. No tenderness appreciable. No rebound. Stool soft and brown. : Cuellar in place with dark yellow urine output. MUSCULOSKELETAL: Extremities without clubbing, cyanosis. There are venous stasis changes of bilateral lower extremities with scaling of the skin. There is diffuse anasarca with 2+ pitting edema bilateral lower extremities. NEUROLOGICAL: Opens eyes to deep noxious stimuli and moves all extremities. Does not follow commands. Unable to assess speech Laboratory Laboratory Tests Test 02/23/17 02/23/17 02/23/17 14:30 15:10 16:19 White Blood Count 22.2 Red Blood Count 3.02 Hemoglobin 7.4 Hematocrit 24.8 Mean Corpuscular Volume 82.1 Mean Corpuscular Hemoglobin 24.5 Mean Corpuscular Hemoglobin 29.8 Concent Red Cell Distribution Width 19.9 Platelet Count 492 Mean Platelet Volume 8.2 Neutrophils (%) (Auto) 87.6 Lymphocytes (%) (Auto) 9.8 Monocytes (%) (Auto) 2.4 Eosinophils (%) (Auto) 0.1 Basophils (%) (Auto) 0.1 Neutrophils # (Auto) 19.4 Lymphocytes # (Auto) 2.2 Monocytes # (Auto) 0.5 Eosinophils # (Auto) 0.0 Basophils # (Auto) 0.0 CBC Comment AUTO DIFF Differential Total Cells 100 Counted Neutrophils % (Manual) 88 Band Neutrophils % 1 Lymphocytes % 5 Monocytes % 1 Basophils % 1 Neutrophils # (Manual) 20.6 Myelocytes 2 Promyelocytes 2 Nucleated Red Blood Cells 1 Differential Comment FINAL DIFF MANUAL Platelet Estimate HIGH Platelet Morphology Comment NORMAL Target Cells 1+ Stomatocytes 1+ Prothrombin Time 13.7 Prothromb Time International 1.2 Ratio Activated Partial 39.2 Thromboplast Time Sodium Level 145 Potassium Level 4.4 Chloride Level 107 Carbon Dioxide Level 30.7 Anion Gap 7 Blood Urea Nitrogen 86 Creatinine 1.97 Estimat Glomerular Filtration 25 Rate Random Glucose 44 Lactic Acid Level 1.0 Calcium Level 6.9 Protein Corrected Calcium 7.5 Phosphorus Level 5.1 Magnesium Level 1.7 Total Bilirubin 0.4 Aspartate Amino Transf 47 (AST/SGOT) Alanine Aminotransferase 22 (ALT/SGPT) Alkaline Phosphatase 236 Total Creatine Kinase 28 Troponin I 0.11 Total Protein 6.0 Albumin 1.6 Urine Color YELLOW Urine Turbidity HAZY Urine pH 5.0 Urine Specific [place] 1.014 Urine Protein NEG Urine Glucose (UA) NEG Urine Ketones NEG Urine Occult Blood NEG Urine Nitrite NEG Urine Bilirubin NEG Urine Urobilinogen LESS THAN 2.0 Urine Leukocyte Esterase TRACE Urine RBC 1 Urine WBC 8 Urine Squamous Epithelial 1 Cells Urine Hyaline Casts 2 Microscopic Urinalysis Comment CATH-CULTURE IND Blood Gas Puncture Site RT RADIAL Blood Gas Patient Temperature 98.6 Blood Gas HCO3 30 Blood Gas Base Excess 6.2 Blood Gas Oxygen Saturation 99 Arterial Blood pH 7.46 Arterial Blood Partial 43 Pressure CO2 Arterial Blood Partial 227 Pressure O2 Arterial Blood Oxygen Content 9.6 Arterial Blood 1.6 Carboxyhemoglobin Arterial Blood Methemoglobin 0.0 Blood Gas Hemoglobin 6.5 Oxygen Delivery Device VENTILATOR Blood Gas Ventilator Setting 500/16/+5 Blood Gas Inspired Oxygen 100 Date/Time Procedure Status Source Growth 02/23/17 15:10 Urine Culture Received Urine Catheterized Urine Pending 02/23/17 14:35 Aerobic Blood Culture Received Blood Peripheral Pending 02/23/17 14:35 Anaerobic Blood Culture Received Blood Peripheral Pending Result Diagram: 02/23/17 1430 02/23/17 1430 Assessment and Plan Assessment and Plan NEURO: Acute encephalopathy (likely multifactorial secondary to toxic metabolic, hypo- glycemia) may also have been hypercapnic but required intubation before ABG was performed. History of stroke with residual left hemiparesis Deconditioning CT brain 02/23/17no acute abnormality Fentanyl for sedation. Versed was started for sedation in the ED due to hypotension while on propofol. Will try to minimize Versed sedation due to risk for delirium, particularly in setting of kidney injury. She is moving all extremities and no dense focal neurologic deficit appreciated RESP: Acute respiratory failure COPD Obstructive sleep apnea Pneumonia Intubated in ED for airway protection. DuoNeb every 6 hours. Albuterol every 2 hours as needed Ventilator bundle Daily spontaneous breathing trial when appropriate from hemodynamic standpoint. CV: History of paroxysmal atrial fibrillation on chronic anticoagulation. Currently in sinus rhythm Mild troponin elevation may be due secondary to sepsis and renal failure. Would avoid aspirin at this time due to anemia and concern for bleeding Chronic diastolic heart failure Hypotensive following intubation and sedation. Received 2 L normal saline in the emergency department. BNP that was sent to the emergency department is pending. 2-D echo 10/24/16ejection fraction 55%. Normal wall motion with no regional wall motion abnormalities. Positive LVH. Obtain 2-D echo Follow-up serial troponin GI: Chronic protein energy malnutrition Stool Hemoccult positive Protonix 40 mg IV every 12 hours Nothing by mouth. OGT tube to low intermittent wall suction FEN/RENAL: Acute kidney injury overlying chronic kidney disease stage III [address]. Monitor intake and output. Monitor electrolyte. Replace electrolytes as clinically indicated. ID: [id number] Severe Sepsis Leukocytosis Patient has recent hospitalization and MRSA pneumonia. I would consider at risk for distant organisms so will cover with vancomycin, Zosyn, Levaquin. Obtain urine Legionella antigen. Obtain pneumococcal antigen Follow-up blood cultures and urine cultures. Send stat endotracheal tube aspirate. Zosyn 3.375 g IV every 6 hours adjusted for creatinine clearance around 24. Vancomycin pharmacy dosing. Levaquin 750 mg IV every 48 hours started 02/23 HEME: On chronic anticoagulation with Eliquis due to Afib. Acute anemia overlying chronic iron deficiency anemia. Transfuse 1 unit packed red cells for hemoglobin of 7.4 as she is hypotensive Stool is brown and gastric output is nonbloody. Stool Hemoccult is positive. Serial hemoglobin every 6 hours. Hold Eliquis 5 mill grams twice a day ENDO: IDDM Hypoglycemia D10@30 mL per hour. Glucose every 2 hours Check random cortisol level PROPH: Hold pharmacologic DVT prophylaxis due to anemia. SCDs for DVT prophylaxis. Protonix 40 mg IV every 12 hours for stress ulcer prophylaxis ACCESS: Has peripheral IV. We'll need central venous line. Palliative care was following last admission. She was full code. Cheryl sepulveda had requested to be the first call. I called this number and there was no answer. Also called Noemí was no answer. Later got a hold of Memo who states that Noemí is now . Agents is and there are now 3 living adult children. She did not designated healthcare surrogate. Memo states that his mother had expressed a desire to be full code. Will work towards extubation and patient may survive this hospitalization but is at risk for significant setback as her overall condition and functional status appears poor. Discussed with ED RN in detail. Discussed with Dr. Welsh Critical care time 60 minutes exclusive of separately billable procedures. Laura Beck MD Feb 23, 2017 16:40
[2017-02-23] MEDS ORDERED: ONDANSETRON HCL 4 MG/2 ML VIAL IV PRN (17:00)
[2017-02-23] MEDS ORDERED: MAGNESIUM HYDROXIDE SUSP 30 ML CUP PO PRN (17:00)
[2017-02-23] MEDS ORDERED: SODIUM CHLORIDE 0.9% FLUSH 10 ML FLUSH IV FLUSH PRN (17:00)
[2017-02-23] MEDS ORDERED: BISACODYL 10 MG SUPP RECTAL PRN (17:00)
[2017-02-23] MEDS ORDERED: MISCELLANEOUS NURSING INFORMATION XX SCH (17:00)
[2017-02-23] MEDS ORDERED: CHLORHEXIDINE GLUCONATE 2 % 1 PACK (2 CLOTHS) TOP PRN (17:00)
[2017-02-23] MEDS ORDERED: SENNOSIDES 8.6 MG TAB PO PRN (17:00)
[2017-02-23] MEDS ORDERED: LACTULOSE SYRUP 20 GM/30 ML CUP PO PRN (17:00)
[2017-02-23] MEDS ORDERED: ACETAMINOPHEN 325 MG TAB PO PRN (17:00)
[2017-02-23] MEDS ORDERED: SODIUM CHLOR 0.9% 1000 ML INJ 1,000 ML IV SCH (17:00)
[2017-02-23] MEDS ORDERED: MIDAZOLAM HCL 2 MG/2 ML VIAL IV PRN (17:00)
[2017-02-23] MEDS ORDERED: RESP: ALBUTEROL 2.5 MG/3 ML NEB (PRN) INH (17:00)
[2017-02-23] MEDS ORDERED: NOREPINEPHRINE-DEXTROSE DRIP 250 ML IV SCH (17:15)
[2017-02-23] MEDS ORDERED: TERBUTALINE INJ 1 MG/ML AMP SQ PRN (17:15)
[2017-02-23] MEDS ORDERED: Vancomycin Consult Pharmacy 1 EA OTHER SCH (17:15)
[2017-02-23] MEDS ORDERED: VANCOMYCIN 1,000 MG/NS 250 ML IV ONE ×2 (18:00)
--- NOTE | 2017-02-23 19:15 | PD.PROCEDR ---
Procedure Note Procedure DATE: 02/23/17 CENTRAL LINE PLACEMENT: Right internal jugular vein site chosen because patient is anticoagulated on Eliquis and has clinical evidence of bleeding with ongoing bleeding from prior peripheral IV sites sticks. INDICATION: Central venous access CONSENT Informed consent for procedure was obtained from patients son after discussion of risks, benefits, alternatives. DESCRIPTION OF THE PROCEDURE The patient was placed in supine position, Trendelenburg. The skin was cleansed with Chloraprep. Additional barrier precautions included large sterile drape, sterile gloves, sterile gown, face mask, and hat. 1 % lidocaine was used for local anesthesia. Under direct ultrasound guidance and on first attempt, the vein was accessed with an introducer needle. The guide wire was advanced but there was scarring at the skin and difficulty with skin dilation so removed the needle and wire and chose different site and access angle. On second attempt, the vein was accessed with an introducer needle. The wire was advanced. Using Seldinger technique a 7 [place] 20 cm antimicrobial coated triple-lumen catheter was advanced to a depth of 17 centimeters. The guide wire was removed. All ports had good return of dark venous blood and flushed easily with saline. The central line was secured with 2.0 silk. A sterile dressing with antibiotic disc was applied. ESTIMATED BLOOD LOSS: Minimal COMPLICATIONS: No apparent complications. STAT chest x-ray is pending Laura Beck MD Feb 23, 2017 19:15
[2017-02-23] MEDS: LEVOFLOXACIN 750 MG PREMIX INJ 150 ML IV SCH (19:28)
[2017-02-23] MEDS: PANTOPRAZOLE SODIUM 40 MG VIAL IV SCH (19:29)
--- NOTE | 2017-02-23 19:52 | RADRPT ---
EXAM DATE/TIME: 02/23/2017 19:25 [facility] COMPARISON: CHEST SINGLE AP, February 23, 2017, 14:43. INDICATIONS : Post central line placement. MEDICAL HISTORY : Hypertension. Cardiovascular disease. Cerebrovascular disease. Diabetes SURGICAL HISTORY : None. ENCOUNTER: Subsequent ACUITY: 1 day PAIN SCORE: Non-responsive. LOCATION: Bilateral chest FINDINGS: Right IJ line is present with tip coursing towards the patient's brain. No definite pneumothorax is s een for technique. ET tube is present with tip overlapping approximately 1 cm above the kimberlyn. NG tu be is present with tip in the stomach. Bibasilar opacities are present may be due to a combination of consolidation and or pleural effusion. The rest of the examination has not significantly changed. CONCLUSION: Placement of a right IJ line which is coursing towards the patient's brain. Gregory Wells MD on February 23, 2017 at 19:50 Board Certified Radiologist. This report was verified electronically.
[2017-02-23] MEDS: DOCUSATE SODIUM 50 MG/SENNA 8.6 MG TAB PO SCH (21:00)
[2017-02-23] MEDS: SODIUM CHLORIDE 0.9% FLUSH 10 ML FLUSH IV FLUSH SCH (21:00)
[2017-02-23] MEDS: DEXTROSE 10% INJ 1,000 ML IV SCH (21:30)
--- NOTE | 2017-02-23 23:26 | RADRPT ---
EXAM DATE/TIME: 02/23/2017 23:11 [facility] COMPARISON: CHEST SINGLE AP, February 23, 2017, 19:25. INDICATIONS : Central line placement MEDICAL HISTORY : Hypertension. Cardiovascular disease. Cerebrovascular disease. Diabetes SURGICAL HISTORY : ENCOUNTER: Subsequent ACUITY: 2 days PAIN SCORE: Non-responsive. LOCATION: Bilateral chest FINDINGS: A single view of the chest demonstrates a right IJ central venous catheter with the tip projecting ce phalad. Endotracheal tube remains appropriately positioned above the kimberlyn the nasogastric tube cros sing the GE junction and extending off the inferior aspect of the image. Persistent bibasilar areas o f consolidation/effusion, unchanged. Degenerative spurring of the dorsal spine. Osseous structures ar e otherwise intact. CONCLUSION: 1. Right IJ central venous catheter continues to project cephalad. Endotracheal and nasogastric tubes are unchanged in position. 2. Stable bibasilar areas of consolidation/effusion Timothy Pascual MD on February 23, 2017 at 23:22 Board Certified Radiologist. This report was verified electronically.
[2017-02-24] VITALS (29 sets, daily range): BP systolic 89–149; BP diastolic 43–104; PULSE 52–91; RESP 9–26; TEMP 95.4–99; O2SAT 90–100
[2017-02-24] MEDS: PIPERACIL-TAZO 3.375 GM PREMIX 50 ML IV SCH ×3 (01:10→10:00)
[2017-02-24 03:22] LABS: AUTOMATED NEUTROPHIL # 16.3 TH/MM3 (1.8-7.7); BASOPHIL # 0.1 TH/MM3 (0-0.2); BASOPHIL % 0.3 % (0.0-2.0); EOSINOPHIL # 0.1 TH/MM3 (0-0.4); EOSINOPHIL % 0.3 % (0.0-4.0); HEMATOCRIT 24.3 % (35.0-46.0); LYMPH % 15.5 % (9.0-44.0); LYMPHOCYTE # 3.1 TH/MM3 (1.0-4.8); MEAN CELL VOLUME 79.1 FL (80.0-100.0); MEAN CORPUSCULAR HGB CONC 31.6 % (32.0-36.0); MONO % 3.4 % (0.0-8.0); NEUT % 80.5 % (16.0-70.0); PLATELET COUNT 395 TH/MM3 (150-450); RED BLOOD COUNT 3.08 MIL/MM3 (4.00-5.30); RED CELL DISTRIBUTION WIDTH 18.2 % (11.6-17.2); WHITE BLOOD COUNT 20.2 TH/MM3 (4.0-11.0)
[2017-02-24 03:26] LABS: HEMO FLAGS AUTO DIFF
[2017-02-24 03:43] LABS: ALKALINE PHOSPHATASE 264 U/L (45-117); ALT (GPT) 23 U/L (10-53); ANION GAP 10 MEQ/L (5-15); AST (GOT) 49 U/L (15-37); BICARBONATE 29.9 MEQ/L (21.0-32.0); BLOOD UREA NITROGEN 97 MG/DL (7-18); CHLORIDE 103 MEQ/L (98-107); GLOMERULAR FILTRATION RATE 23 ML/MIN (>89); MAGNESIUM 1.8 MG/DL (1.5-2.5); SODIUM (NA) 143 MEQ/L (136-145); TOTAL BILIRUBIN ADULT 0.6 MG/DL (0.2-1.0)
[2017-02-24] MEDS: CHLORHEXIDINE GLUCONATE 2 % 1 PACK (2 CLOTHS) TOP SCH (04:00)
[2017-02-24 04:15] LABS: SCAN/DIFF AUTO DIFF CONFIRMED
[2017-02-24] MEDS: RESP: ALBUTEROL 2.5 MG/IPRATROPIUM 0.5 MG NEB (SCH) INH ×4 (04:40→20:33)
[2017-02-24] MEDS: PANTOPRAZOLE SODIUM 40 MG VIAL IV SCH ×2 (05:11→17:39)
--- NOTE | 2017-02-24 05:38 | RADRPT ---
EXAM DATE/TIME: 02/24/2017 03:15 [facility] COMPARISON: CHEST SINGLE AP, February 23, 2017, 23:11. INDICATIONS : Shortness of breath, possible pulmonary disease. MEDICAL HISTORY : Hypertension. Cardiovascular disease. Cerebrovascular disease. Diabetes SURGICAL HISTORY : Appendectomy. Cholecystectomy. ENCOUNTER: Subsequent ACUITY: 2 days PAIN SCORE: Non-responsive. LOCATION: Bilateral chest FINDINGS: A single view of the chest demonstrates persistent bibasilar airspace disease with possible associate d effusions. This may actually be slightly worse when compared to the prior. Life support tubes are a ll stable in position including an endotracheal and nasogastric tube. Right IJ central venous cathete r tracks cephalad towards the head. CONCLUSION: 1. Bibasilar airspace disease actually appears slightly worse. There may be associated effusions. 2. Stable position of life support tubes including a right IJ central venous catheter with the tip tr acking cephalad towards the head. Timothy Pascual MD on February 24, 2017 at 5:35 Board Certified Radiologist. This report was verified electronically.
[2017-02-24 05:47] LABS: BLOOD GAS BASE EXCESS 6.3 mmol/L (-2-2); BLOOD GAS CARBOXYHEMOGLOBIN 1.7 % (0-4); BLOOD GAS HCO3 30 mmol/L (22-26); BLOOD GAS METHEMOGLOBIN 1.4 % (0-2); BLOOD GAS O2 HGB SATURATION 96 % (90-100); BLOOD GAS OXYGEN CONTENT 13.2 Vol % (12.0-20.0); BLOOD GAS PCO2 41 mmHg (38-42); BLOOD GAS PO2 133 mmHg (61-120); BLOOD GAS TOTAL HGB 9.6 G/DL (12.0-16.0); TEMP CORR TO 98.6
[2017-02-24 05:48] LABS: CRITICAL VALUE NO; DRAW SITE RT RADIAL; FIO2 40 %; NUMBER OF ARTERIAL PUNCTURES 1; OXYGEN DEVICE VENTILATOR; STAT NO; ULNAR PULSE PRESENT; VENT SETTINGS AC16/500/5PEEP
[2017-02-24] MEDS: CHLORHEXIDINE 0.12% (ORAL KIT) 15 ML CUP MT SCH ×2 (07:44→20:01)
[2017-02-24] MEDS: DOCUSATE SODIUM 50 MG/SENNA 8.6 MG TAB PO SCH ×2 (07:44→20:56)
[2017-02-24] MEDS: SODIUM CHLORIDE 0.9% FLUSH 10 ML FLUSH IV FLUSH SCH ×2 (07:44→20:01)
--- NOTE | 2017-02-24 13:54 | RADRPT ---
EXAM DATE/TIME: 02/24/2017 10:55 [facility] COMPARISON: CHEST SINGLE AP, February 24, 2017, 3:15. INDICATIONS : Left sided central line placement. MEDICAL HISTORY : Hypertension. Cardiovascular disease. Cerebrovascular disease. Diabetes SURGICAL HISTORY : Appendectomy. Cholecystectomy. ENCOUNTER: Initial ACUITY: 1 day PAIN SCORE: Non-responsive. LOCATION: Bilateral chest FINDINGS: A single view of the chest demonstrates cardiomegaly with bibasilar densities. Endotracheal tube, jackson ogastric tube and right jugular central line stable position. Right jugular central line tip is seen within the internal jugular vein superiorly. Left jugular central line with tip in the SVC and no pn eumothorax. Osseous structures are intact. CONCLUSION: Abnormal right jugular line. Adequate placement of left jugular line.. Obinna Lobo MD on February 24, 2017 at 11:30 Board Certified Radiologist. This report was verified electronically.
[2017-02-24] MEDS ORDERED: PROPOFOL 1000 MG/100 ML IV SCH (15:00)
--- NOTE | 2017-02-24 15:54 | HHI.CCPN ---
Subjective Remarks/Hospital Course 72-year-old female with past medical history of hypertension, IDDM , obesity, Sleep apnea on home C Pap, hyperlipidemia, prior stroke with residual left side weakness, COPD who presents to [facility] with history of altered mental status x2 days. Her son states yesterday she slept most of the day yesterday; did not eat all day.. She had stayed home with her ankit ce all day but when her son came home from work he was able to arouse her and gave her some ice cream and Lantus 37 units. EVAC administered Narcan without response. Upon arrival ED physician states she was moaning to noxious stimuli and required intubation for airway protection. Glucose was 44 and she was given amp of D50. She was afebrile but findings were consistent with severe sepsis including white blood cell count 22, chest x-ray with left lower lobe and right perihilar opacities. UA had trace LE and [address] brain showed no acute abnormality. She was given azithromycin, Zosyn in the emergency department. Blood cultures and urine cultures have been obtained. She was started on propofol initially for sedation but became hypotensive so was given 2 L normal saline bolus and started on a Versed drip. She has been recently admitted 10/24/16 through 11/07. She had been sent to [facility] emergency Department for atrial fibrillation with RVR rate in the 120s and then subsequently was discovered to have hypercapnic respiratory failure. She had also been treated for MRSA pneumonia. Unable to obtain further review of systems from patient because she is intubated. Subjective: 02/24 Remains intubated and sedated. Did not tolerate CPAP. Blood culture 10/09 + GNR...later resulted Proteus. Repeat blood culture sent and blood culture reordered. Remains on levophed Objective Vital Signs Date Time Temp Pulse Resp B/P (MAP) Pulse Ox O2 Delivery O2 Flow Rate FiO2 02/24/17 15:20 100 40 02/24/17 15:00 98.8 61 16 114/56 (75) 02/23/17 16:06 Ventilator Intake and Output 02/24/17 02/24/17 02/24/17 07:59 15:59 23:59 Intake Total 1165 ml Output Total 425 ml Balance 740 ml Result Diagram: 02/24/171 02/24/17 0311 Other Results Microbiology Date/Time Source Procedure Growth Status 02/23/17 15:10 Urine Catheterized Urine Legionella Antigen - Final PRESUMPTIVE NEGATIVE FOR LEGIONELLA P... Complete 02/23/17 15:10 Urine Catheterized Urine Streptococcus pneumoniae Antigen (M - Final PRESUMPTIVE NEGATIVE FOR STREPTOCOCCU... Complete Laboratory Tests Test 02/23/17 16:19 02/24/17 05:34 Blood Gas Puncture Site RT RADIAL RT RADIAL Blood Gas Patient Temperature 98.6 98.6 Blood Gas HCO3 30 mmol/L (22-26) 30 mmol/L (22-26) Blood Gas Base Excess 6.2 mmol/L (-2-2) 6.3 mmol/L (-2-2) Blood Gas Oxygen Saturation 99 % (90-100) 96 % (90-100) Arterial Blood pH 7.46 (7.380-7.420) 7.48 (7.380-7.420) Arterial Blood Partial Pressure CO2 43 mmHg (38-42) 41 mmHg (38-42) Arterial Blood Partial Pressure O2 227 mmHG (61-120) 133 mmHg (61-120) Arterial Blood Oxygen Content 9.6 Vol % (12.0-20.0) 13.2 Vol % (12.0-20.0) Arterial Blood Carboxyhemoglobin 1.6 % (0-4) 1.7 % (0-4) Arterial Blood Methemoglobin 0.0 % (0-2) 1.4 % (0-2) Blood Gas Hemoglobin 6.5 G/DL (12.0-16.0) 9.6 G/DL (12.0-16.0) Oxygen Delivery Device VENTILATOR VENTILATOR Blood Gas Ventilator Setting 500/16/+5 AC16/500/5PEEP Blood Gas Inspired Oxygen 100 % 40 % Objective Remarks GENERAL: Obese female who is orotracheally intubated, anasarca SKIN: Warm and dry. There is an estimated 5 cm stage II decubitus ulcer on left buttocks and estimated 1.5 cm decubitus ulcer on right buttocks (present on admission) HEAD: Atraumatic. Normocephalic. EYES: Pupils pinpoint bilaterally. No scleral icterus. No injection or drainage. ENT: No nasal bleeding or discharge. Mucous membranes dry NECK: Trachea midline. Thick neck, unable to appreciate JVD. CARDIOVASCULAR: Regular rate and rhythm. No murmurs rubs or gallops appreciated. RESPIRATORY: Or tracheally intubated. Synchronous with ventilator. Coarse breath sounds bilaterally with rhonchi. No wheezes or Rales GASTROINTESTINAL: Abdomen obese, soft, bowel sounds present. No tenderness appreciable. No rebound. Stool soft and brown. : Cuellar in place with dark yellow urine output. MUSCULOSKELETAL: Extremities without clubbing, cyanosis. There are venous stasis changes of bilateral lower extremities with scaling of the skin. There is diffuse anasarca with 2+ pitting edema bilateral lower extremities. NEUROLOGICAL: Opens eyes to deep noxious stimuli and moves all extremities. Does not follow commands. Unable to assess speech A/P Assessment and Plan NEURO: Acute encephalopathy (likely multifactorial secondary to toxic metabolic, hypo- glycemia) may also have been hypercapnic but required intubation before ABG was performed. History of stroke with residual left hemiparesis Deconditioning CT brain 02/23/17no acute abnormality Fentanyl for sedation. Versed was started for sedation in the ED due to hypotension while on propofol. Will try to minimize Versed sedation due to risk for delirium, particularly in setting of kidney injury. She is moving all extremities and no dense focal neurologic deficit appreciated RESP: Acute respiratory failure COPD Obstructive sleep apnea Pneumonia Intubated in ED for airway protection. DuoNeb every 6 hours. Albuterol every 2 hours as needed Ventilator bundle Daily spontaneous breathing trial when appropriate from hemodynamic standpoint. CV: History of paroxysmal atrial fibrillation on chronic anticoagulation. Currently in sinus rhythm Mild troponin elevation may be due secondary to sepsis and renal failure. Would avoid aspirin at this time due to anemia and concern for bleeding Chronic diastolic heart failure Hypotensive following intubation and sedation. Received 2 L normal saline in the emergency department. Weaning norepinephrine to maintain mean arterial pressure greater than 65 BNP that was sent in the emergency department 148. 2-D echo 10/24/16ejection fraction 55%. Normal wall motion with no regional wall motion abnormalities. Positive LVH. F/u 2-D echo Follow-up serial troponin GI: Chronic protein energy malnutrition Protonix 40 mg IV every 12 hours Nothing by mouth. Initiate enteral feeds glucerna 1.5 40/hr and f/u nutrition recs. FEN/RENAL: Acute kidney injury overlying chronic kidney disease stage III Anasarca likely secondary to sodium and fluid retention secondary to chronic hypercapnea. Cuellar in place. Monitor intake and output. Monitor electrolyte. Replace electrolytes as clinically indicated. ID: UTI Severe Sepsis Leukocytosis Gram-negative grace bacteremia (Proteus) Patient has recent hospitalization and MRSA pneumonia. I would considered at risk for resistant organisms so covered intially with vancomycin, Zosyn, Levaquin. Zosyn 3.375 g IV every 6 hours adjusted for creatinine clearance around 24. Vancomycin pharmacy dosing. Levaquin 750 mg IV every 48 hours started 02/23 Now blood culture positive for Proteus. This can develop inducible resistance on Zosyn and patient with history of drug-resistant organisms. Placed on meropenem. (Sputum culture was ordered but was not sent so unable to rule out Pseudomonas therefore unable to use ertapenem). ID consult for carbapenem utilization. Urine Legionella and pneumococcal antigens negative. Follow-up blood cultures and urine cultures. Send stat endotracheal tube aspirate. HEME: On chronic anticoagulation with Eliquis due to Afib. Acute anemia overlying chronic iron deficiency anemia. Transfused 1 unit packed red cells 02/23 for hemoglobin 7.4 in the setting of hypotension. Hemoglobin 7.7 today. Continue to hold Eliquis 5 mg twice a day. Consider GI consult if hemoglobin continues to drop. Stool is brown and gastric output is nonbloody. Stool Hemoccult is positive. Monitoring CBC. ENDO: IDDM Hypoglycemia D10@30 mL per hour. Glucose every 2 hours. Will wean off of tolerating tube feeds Random cortisol level within normal limits at 20.5 PROPH: Hold pharmacologic DVT prophylaxis due to anemia. SCDs for DVT prophylaxis. Protonix 40 mg IV every 12 hours for stress ulcer prophylaxis ACCESS: Right IJ central venous line placed 02/23 courses up into the neck. Replace with left IJ central venous line 02/24 #1 Palliative care was following last admission. She was full code. Cheryl coco had requested to be the first call. I called this number and there was no answer. Also called Noemí was no answer. Later got a hold of Memo who states that Noemí is now . Patient's is and there are now 3 living adult children. She did not designated healthcare surrogate. Memo states that his mother had expressed a desire to be full code. Will work towards extubation and patient may survive this hospitalization but is at risk for significant setback as her overall condition and functional status appears poor. Discussed with ASTROCHEMIST. Discussed with Dr. Calderon. Level III Laura Beck MD Feb 24, 2017 15:54
--- NOTE | 2017-02-24 15:55 | PD.PROCEDR ---
Procedure Note Procedure DATE: 02/24/17 CENTRAL LINE PLACEMENT: Left internal jugular vein. Ultrasound-guided INDICATION: Central venous access CONSENT Informed consent for procedure was obtained from patients family after discussion of risks, benefits, alternatives. DESCRIPTION OF THE PROCEDURE The patient was placed in supine position, mild Trendelenburg. The skin was cleansed with Chloraprep. Additional barrier precautions included large sterile drape, sterile gloves, sterile gown, face mask, and hat. 1 % lidocaine was used for local anesthesia. Under direct ultrasound guidance and on single attempt, the vein was accessed with an introducer needle. The guide wire was advanced and the tract was dilated. Using Seldinger technique a 7 Palestinian 20 cm antimicrobial coated triple-lumen catheter was advanced to a depth of 17 centimeters. The guide wire was removed. All ports had good return of dark venous blood and flushed easily with saline. The central line was secured with 2.0 silk. A sterile dressing with antibiotic disc was applied. ESTIMATED BLOOD LOSS: Minimal COMPLICATIONS: No apparent complications. STAT chest x-ray demonstrated satisfactory central venous line position without apparent complication. Laura Beck MD Feb 24, 2017 15:55
[2017-02-24] MEDS ORDERED: ASP: ID consult, note reason in consult order PRN (16:00)
[2017-02-24] MEDS ORDERED: PIPERACIL-TAZO 2.25 GM PREMIX 50 ML IV SCH (16:00)
[2017-02-24] MEDS ORDERED: MISCELLANEOUS PHARMACY INFORMATION XX PRN (16:00)
--- NOTE | 2017-02-24 16:15 | EKG ---
Date Performed: 02/24/2017 Time Performed: 00:02:54 PTAGE: 72 years EKG: Sinus bradycardia. Prolonged QT interval Lateral T wave changes are nonspecific Compared to previous tracing, QT interval is somewhat more prolonged, otherwise no signifcant change Borderline ECG PREVIOUS TRACING : 02/23/17 DOCTOR: Aakash Finley Interpretating Date/Time 02/24/2017 16:14:49
--- NOTE | 2017-02-24 16:15 | EKG ---
Date Performed: 02/23/2017 Time Performed: 15:48:59 PTAGE: 72 years EKG: Sinus rhythm NONSPECIFIC T-WAVE ABNORMALITY Compared to prior tracing, rhythm has changed from atrial fibrillatio n with rapid ventricular response to sinus rhythm. ST-T changes have improved ABNORMAL ECG PREVIOUS TRACING : 11/01/2016 23.53 DOCTOR: Aakash Finley Interpretating Date/Time 02/24/2017 16:14:04
--- NOTE | 2017-02-24 16:31 | PD.CONS ---
History of Present Illness Service Infectious disease Consult Requested By Dr Olivia Beck Reason for Consult Evaluate patient with gram-negative bacteremia Primary Care Physician Handy Nails MD Diagnoses: History of Present Illness Patient seen and examined. Records reviewed. Patient is a 72-year-old female brought into the hospital after she was found poorly responsive. Patient has known COPD, sleep apnea, and he uses a home CPAP machine. Apparently the patient was sleeping most of the day one day prior to admission, and he did not eat much that day. Her niece was apparently with her and when the son came to see her she was quite lethargic although she did wake up. However she did not really improve much, and even back was called , and they gave her Narcan without any response. In the emergency room she continued to be obtunded, and was moaning a lot. She ended up getting intubated for airway protection. Her glucose was 44 and she was given an amp of 250. There was no fever or chills prior to admission. Her chest x-ray showed left lower lobe infiltrate with some right perihilar opacities. She was admitted with severe sepsis, and her white count was 22,000, and she was hypotensive requiring pressors. Since admission highest temperature being 99. Her urinalysis was fairly unremarkable. 2 blood cultures were done on admission , and they are now reported as growing gram-negative andrés. The last time patient was hospitalized was in October of this year, and at that time she was treated for MRSA pneumonia. Infectious disease consultation has been requested to evaluate the patient. Review of Systems ROS Limitations: Clinical Condition, Intubated Past Family Social History Allergies: Coded Allergies: *MDRO Multi-Drug Resistant Organism (Verified Adverse Reaction, Unknown, ) MRSA PCR Screen POSITIVE - 10/24/2016 MRSA (sputum)-10/24/16 Past Medical History Paroxysmal atrial fibrillation on chronic anticoagulation Obstructive sleep apnea on home CPAP Diabetes mellitus Hypertension Hyperlipidemia Stroke with residual left-sided hemiparesis COPD Past Surgical History Hernia repair Appendectomy Cholecystectomy Right hip replacement Active Ordered Medications Tylenol Albuterol Dulcolax Fentanyl Lactulose Levaquin MOM Meropenem Versed Levophed Zofran Protonix Zosyn Diprivan Leda-Colace Senokot Vancomycin 1 dose 02/23 Family History Not known Social History Uses snuff No history of alcohol abuse Denies illicit drug use Lives with her son. She was previously living with her daughter Noemí who few weeks ago. Physical Exam Vital Signs Vital Signs Date Time Temp Pulse Resp B/P (MAP) Pulse Ox O2 Delivery O2 Flow Rate FiO2 02/24/17 15:20 100 40 02/24/17 15:00 98.8 61 16 114/56 (75) 100 02/24/17 14:06 100 40 02/24/17 14:00 61 02/24/17 14:00 99.0 63 16 108/54 (72) 100 02/24/17 13:00 99.0 64 16 108/56 (73) 99 02/24/17 12:00 40 02/24/17 08:00 40 02/24/17 07:18 100 40 02/24/17 06:00 67 02/24/17 04:39 100 40 02/24/17 04:00 52 02/24/17 04:00 40 02/24/17 04:00 96.2 52 16 118/57 (77) 100 02/24/17 02:00 58 02/24/17 00:20 100 40 02/24/17 00:00 53 02/24/17 00:00 40 02/24/17 00:00 95.4 53 16 126/61 (82) 100 02/23/17 22:50 95.4 57 16 89/46 (60) 100 02/23/17 22:35 95.4 56 16 99/53 (68) 100 02/23/17 22:00 57 02/23/17 20:25 100 02/23/17 20:00 96.4 61 16 98/50 (66) 100 02/23/17 20:00 40 02/23/17 20:00 61 02/23/17 19:35 100 40 02/23/17 19:00 50 02/23/17 17:11 67 16 131/61 (84) 100 100 02/23/17 16:25 98.3 Physical Exam GENERAL: Patient is an obese, well-developed CF, sedated on the vent, not in respiratory distress. SKIN: Warm and dry. No generalized rash, no ecchymoses and no evidence of embolic lesions. HEAD: Atraumatic. Normocephalic. No temporal wasting, or tenderness. EYES: Why conjunctiva. No petechia or hemorrhage. L pupil is slightly larger compared to the R pupil. No scleral icterus. No injection or drainage. EARS, NOSE AND THROAT: Nose without bleeding or purulent nasal discharge. She is orally intubated. NECK: Trachea midline. Supple and not tender, no meningeal signs. LIJ TLC with no evidence of infection CARDIOVASCULAR: Regular rate and rhythm. No murmurs, rubs or gallops heard RESPIRATORY: Coarse breath sounds bilaterally, with some rhonchi. Breath sounds equal bilaterally. Decreased breath sounds at the bases. ABDOMEN: Soft, obese, nondistended, did some grimacing during abdominal palpation. Has midline ventral hernia. Bowel sounds present and normoactive. No guarding. No rebound. Has mild intertriginous silverio on R abdominal fold. EXTREMITIES: No clubbing, or cyanosis. Has skin changes in both legs c/w chronic leg edema and venous stasis. Has some scabs in L leg with no evidence of infection. Has pitting edema BLE NEUROLOGICAL: Sedated . No Babinski, no ankle clonus PSYCHIATRIC: Unable to assess LINE: No evidence of infection : Cuellar cath in place with no evidence of infection Laboratory Laboratory Tests Test 02/23/17 16:50 02/23/17 19:00 02/23/17 22:55 02/24/17 03:11 B-Type Natriuretic Peptide 148 Nasal Screen MRSA (PCR) MRSA DETECTED Troponin I 0.11 0.12 Random Cortisol 20.5 Salicylates Level LESS THAN 1.7 White Blood Count 20.2 Red Blood Count 3.08 Hemoglobin 7.7 Hematocrit 24.3 Mean Corpuscular Volume 79.1 Mean Corpuscular Hemoglobin 25.0 Mean Corpuscular Hemoglobin Concent 31.6 Red Cell Distribution Width 18.2 Platelet Count 395 Mean Platelet Volume 8.2 Neutrophils (%) (Auto) 80.5 Lymphocytes (%) (Auto) 15.5 Monocytes (%) (Auto) 3.4 Eosinophils (%) (Auto) 0.3 Basophils (%) (Auto) 0.3 Neutrophils # (Auto) 16.3 Lymphocytes # (Auto) 3.1 Monocytes # (Auto) 0.7 Eosinophils # (Auto) 0.1 Basophils # (Auto) 0.1 CBC Comment AUTO DIFF Differential Comment AUTO DIFF CONFIRMED Blood Urea Nitrogen 97 Creatinine 2.11 Random Glucose 84 Total Protein 6.1 Albumin 1.6 Calcium Level 7.9 Magnesium Level 1.8 Alkaline Phosphatase 264 Aspartate Amino Transf (AST/SGOT) 49 Alanine Aminotransferase (ALT/SGPT) 23 Total Bilirubin 0.6 Sodium Level 143 Potassium Level 4.0 Chloride Level 103 Carbon Dioxide Level 29.9 Anion Gap 10 Estimat Glomerular Filtration Rate 23 Lactic Acid Level 1.5 Test 02/24/17 05:34 Blood Gas Puncture Site RT RADIAL Blood Gas Patient Temperature 98.6 Blood Gas HCO3 30 Blood Gas Base Excess 6.3 Blood Gas Oxygen Saturation 96 Arterial Blood pH 7.48 Arterial Blood Partial Pressure CO2 41 Arterial Blood Partial Pressure O2 133 Arterial Blood Oxygen Content 13.2 Arterial Blood Carboxyhemoglobin 1.7 Arterial Blood Methemoglobin 1.4 Blood Gas Hemoglobin 9.6 Oxygen Delivery Device VENTILATOR Blood Gas Ventilator Setting AC16/500/5PEEP Blood Gas Inspired Oxygen 40 Date/Time Source Procedure Growth Status 02/23/17 14:35 Blood Peripheral Aerobic Blood Culture - Preliminary Gram Negative Andrés Resulted 02/23/17 14:35 Anaerobic Blood Culture - Preliminary Proteus Species Resulted 02/23/17 15:10 Urine Catheterized Urine Legionella Antigen - Final PRESUMPTIVE NEGATIVE FOR LEGIONELLA P... Complete 02/23/17 15:10 Urine Catheterized Urine Streptococcus pneumoniae Antigen (M - Final PRESUMPTIVE NEGATIVE FOR STREPTOCOCCU... Complete Result Diagram: 02/24/17 0311 02/24/17 0311 Imaging RADIOLOGY STUDIES/FILMS REVIEWED Chest X-Ray 02/24/17 0000 Signed Impressions: Service Date/Time: Friday, February 24, 2017 03:15 - CONCLUSION: 1. Bibasilar airspace disease actually appears slightly worse. There may be associated effusions. 2. Stable position of life support tubes including a right IJ central venous catheter with the tip tracking cephalad towards the head. Timothy Pascual MD Head CT 02/23/17 1400 Signed Impressions: Service Date/Time: Thursday, February 23, 2017 15:20 - CONCLUSION: Unremarkable study. K. Zackery Wells MD Assessment and Plan Assessment and Plan IMPRESSION GNR sepsis due to PNA, possibly aspiration? Respiratory failure Known COPD, sleep apnea CKD Morbid obesity Mild elevation of LFTs RECOMMENDATION Continue Meropenem while C/S preliminary - will adjust and deescalate once C/S finalized Agree with repeat BC Continue Levaquin Liver US Follow C/S Monitor progress I will determine course of Rx once work-up completed I will follow along with you Thank you for this consultation Discussed Condition With D/W Marlene Kuhn MD Feb 24, 2017 16:31
[2017-02-24] MEDS: DEXTROSE 10% INJ 1,000 ML IV SCH (17:15)
[2017-02-24] MEDS: MEROPENEM INJ 1,000 MG in SODIUM CHLORIDE 0.9% INJ 100 ML IV SCH (17:39)
[2017-02-24] MEDS: PIPERACIL-TAZO 2.25 GM PREMIX 50 ML IV SCH (18:00)
--- NOTE | 2017-02-24 20:25 | EKG ---
Date Performed: 02/24/2017 Time Performed: 17:30:59 PTAGE: 72 years EKG: Sinus rhythm NONSPECIFIC T-WAVE ABNORMALITY ABNORMAL ECG PREVIOUS TRACING : 02/24/2017 12.54 Compared to previous tracing, heart rate has increased. DOCTOR: Cooper Yang Interpretating Date/Time 02/24/2017 20:25:25
--- NOTE | 2017-02-24 20:28 | EKG ---
Date Performed: 02/24/2017 Time Performed: 12:54:33 PTAGE: 72 years EKG: Sinus rhythm NONSPECIFIC T-WAVE ABNORMALITY BORDERLINE ECG PREVIOUS TRACING : 02/24/2017 00.02 No significant change from previous tracing noted. DOCTOR: Cooper Yang Interpretating Date/Time 02/24/2017 20:26:30
[2017-02-25] VITALS (30 sets, daily range): BP systolic 88–135; BP diastolic 43–63; PULSE 62–98; RESP 13–25; TEMP 98.3–99.1; O2SAT 89–100
[2017-02-25] MEDS: PIPERACIL-TAZO 2.25 GM PREMIX 50 ML IV SCH ×2 (00:07→05:57)
[2017-02-25] MEDS: RESP: ALBUTEROL 2.5 MG/IPRATROPIUM 0.5 MG NEB (SCH) INH ×4 (03:02→22:00)
[2017-02-25] MEDS: CHLORHEXIDINE GLUCONATE 2 % 1 PACK (2 CLOTHS) TOP SCH (04:00)
[2017-02-25] MEDS: PANTOPRAZOLE SODIUM 40 MG VIAL IV SCH ×2 (04:59→17:51)
[2017-02-25] MEDS: MEROPENEM INJ 1,000 MG in SODIUM CHLORIDE 0.9% INJ 100 ML IV SCH ×2 (05:00→17:50)
[2017-02-25] MEDS: DEXTROSE 10% INJ 1,000 ML IV SCH (05:05)
--- NOTE | 2017-02-25 05:08 | EKG ---
Date Performed: 02/24/2017 Time Performed: 22:42:19 PTAGE: 72 years EKG: Sinus rhythm NONSPECIFIC T-WAVE ABNORMALITY BORDERLINE ECG PREVIOUS TRACING : 02/24/2017 17.30 No change from previous tracing noted. DOCTOR: Cooper Yang Interpretating Date/Time 02/25/2017 05:07:20
[2017-02-25] MEDS: DOCUSATE SODIUM 50 MG/SENNA 8.6 MG TAB PO SCH ×2 (08:35→21:00)
[2017-02-25] MEDS: CHLORHEXIDINE 0.12% (ORAL KIT) 15 ML CUP MT SCH ×2 (08:35→21:12)
[2017-02-25] MEDS: SODIUM CHLORIDE 0.9% FLUSH 10 ML FLUSH IV FLUSH SCH ×2 (08:35→21:00)
--- NOTE | 2017-02-25 09:24 | RADRPT ---
EXAM DATE/TIME: 02/25/2017 08:05 [facility] COMPARISON: No previous studies available for comparison. INDICATIONS : Increased lab values. MEDICAL HISTORY : Stroke. Hypercholesterolemia. Neck pain. Glasses. Headache. Sleep apnea. Arthritis. Diabetes. SURGICAL HISTORY : Appendectomy. Cholecystectomy. Hernia repair. Left knee. Right hip replacement. ENCOUNTER: Initial ACUITY: 1 day PAIN SCORE: Nonresponsive. LOCATION: Bilateral upper quadrant MEASUREMENTS: LIVER: 22.9 cm length COMMON DUCT: 7 mm RIGHT KIDNEY: 8.8 x 4.6 x 4.8 cm SPLEEN: 7.5 cm length FINDINGS: Limited study due to patient immobility. Patient is on ventilator. LIVER: Diffuse echogenic and heterogeneous with coarse echotexture without focal lesion or ductal dilatation . COMMON DUCT: No intraluminal mass or stone visualized. GALLBLADDER: Surgically absent. PANCREAS: Slightly echogenic with limited visualization. RIGHT KIDNEY: No hydronephrosis, stone or mass. Simple cyst measures 39 x 36 x 39 mm. SPLEEN: No focal lesion. CONCLUSION: 1. Echogenic and heterogeneous liver which can be seen with hepatocellular dysfunction. 2. Right kidney slightly small in size. 3. Cholecystectomy. Obinna Lobo MD on February 25, 2017 at 9:19 Board Certified Radiologist. This report was verified electronically.
--- NOTE | 2017-02-25 10:42 | HHI.IDPN ---
Subjective Subjective Remarks Patient is a 72-year-old female brought into the hospital after she was found poorly responsive. Patient has known COPD, sleep apnea, and he uses a home CPAP machine. Apparently the patient was sleeping most of the day one day prior to admission, and he did not eat much that day. Her niece was apparently with her and when the son came to see her she was quite lethargic although she did wake up. However she did not really improve much, and even back was called , and they gave her Narcan without any response. In the emergency room she continued to be obtunded, and was moaning a lot. She ended up getting intubated for airway protection. Her glucose was 44 and she was given an amp of 250. There was no fever or chills prior to admission. Her chest x-ray showed left lower lobe infiltrate with some right perihilar opacities. She was admitted with severe sepsis, and her white count was 22,000, and she was hypotensive requiring pressors. Since admission highest temperature being 99. Her urinalysis was fairly unremarkable. 2 blood cultures were done on admission , and they are now reported as growing gram-negative andrés. Notes reviewed Afebrile 2 BC on adm with GNR Sputum C/S pending BP ok On CPAP this morning, RR 15, has low TV Antibiotics Ruth Marie Past Medical History Paroxysmal atrial fibrillation on chronic anticoagulation Obstructive sleep apnea on home CPAP Diabetes mellitus Hypertension Hyperlipidemia Stroke with residual left-sided hemiparesis COPD Past Surgical History Hernia repair Appendectomy Cholecystectomy Right hip replacement Allergies: Coded Allergies: *MDRO Multi-Drug Resistant Organism (Verified Adverse Reaction, Unknown, ) MRSA PCR Screen POSITIVE - 10/24/2016 MRSA (sputum)-10/24/16 Objective . Vital Signs Date Time Temp Pulse Resp B/P (MAP) Pulse Ox O2 Delivery O2 Flow Rate FiO2 02/25/17 10:30 40 02/25/17 08:09 98 35 02/25/17 06:00 67 101/49 (66) 100 02/25/17 06:00 67 02/25/17 05:30 67 102/47 (65) 100 02/25/17 05:00 75 120/55 (76) 100 02/25/17 04:30 84 135/63 (87) 98 02/25/17 04:01 69 126/57 (80) 100 02/25/17 04:00 35 02/25/17 04:00 69 99 02/25/17 04:00 99.1 69 17 126/57 (80) 99 02/25/17 04:00 69 02/25/17 03:31 67 88/43 (58) 99 02/25/17 03:01 99 35 02/25/17 03:01 68 110/52 (71) 99 02/25/17 03:00 68 99 02/25/17 02:31 80 131/56 (81) 99 02/25/17 02:04 93 13 127/58 (81) 96 02/25/17 02:00 91 02/25/17 02:00 91 25 89 02/25/17 01:30 62 16 103/51 (68) 100 02/25/17 01:06 16 02/25/17 01:02 100 35 02/25/17 01:00 66 16 101/51 (68) 100 02/25/17 00:31 67 17 90/45 (60) 100 02/25/17 00:00 98.3 89 17 110/55 (73) 97 02/25/17 00:00 89 21 110/55 (73) 97 02/25/17 00:00 89 21 110/55 (73) 97 02/25/17 00:00 89 02/25/17 00:00 35 02/24/17 23:30 66 16 110/55 (73) 100 02/24/17 23:01 68 16 98/49 (65) 100 02/24/17 23:00 68 16 100 02/24/17 22:33 91 17 142/104 (117) 90 02/24/17 22:31 91 26 149/101 (117) 98 02/24/17 22:00 68 17 101/52 (68) 99 02/24/17 22:00 68 02/24/17 21:30 69 16 96/48 (64) 99 02/24/17 21:00 68 16 89/43 (58) 99 02/24/17 20:32 99 40 02/24/17 20:30 69 16 90/44 (59) 99 02/24/17 20:00 99.0 80 16 115/58 (77) 98 02/24/17 20:00 35 02/24/17 20:00 80 19 115/58 (77) 98 02/24/17 20:00 80 02/24/17 19:30 71 16 106/54 (71) 98 02/24/17 19:00 68 16 106/51 (69) 99 02/24/17 18:00 71 02/24/17 17:00 69 9 97/50 (66) 99 02/24/17 16:01 98.2 87 16 115/56 (75) 99 02/24/17 16:00 40 02/24/17 16:00 73 02/24/17 15:20 100 40 02/24/17 15:00 98.8 61 16 114/56 (75) 100 02/24/17 14:06 100 40 02/24/17 14:00 61 02/24/17 14:00 99.0 63 16 108/54 (72) 100 02/24/17 13:00 99.0 64 16 108/56 (73) 99 02/24/17 12:00 40 . Laboratory Tests Test 02/23/17 14:30 02/24/17 03:11 White Blood Count 22.2 TH/MM3 20.2 TH/MM3 Red Blood Count 3.02 MIL/MM3 3.08 MIL/MM3 Hemoglobin 7.4 GM/DL 7.7 GM/DL Hematocrit 24.8 % 24.3 % Mean Corpuscular Volume 82.1 FL 79.1 FL Mean Corpuscular Hemoglobin 24.5 PG 25.0 PG Mean Corpuscular Hemoglobin Concent 29.8 % 31.6 % Red Cell Distribution Width 19.9 % 18.2 % Platelet Count 492 TH/MM3 395 TH/MM3 Mean Platelet Volume 8.2 FL 8.2 FL Neutrophils (%) (Auto) 87.6 % 80.5 % Lymphocytes (%) (Auto) 9.8 % 15.5 % Monocytes (%) (Auto) 2.4 % 3.4 % Eosinophils (%) (Auto) 0.1 % 0.3 % Basophils (%) (Auto) 0.1 % 0.3 % Neutrophils # (Auto) 19.4 TH/MM3 16.3 TH/MM3 Lymphocytes # (Auto) 2.2 TH/MM3 3.1 TH/MM3 Monocytes # (Auto) 0.5 TH/MM3 0.7 TH/MM3 Eosinophils # (Auto) 0.0 TH/MM3 0.1 TH/MM3 Basophils # (Auto) 0.0 TH/MM3 0.1 TH/MM3 CBC Comment AUTO DIFF AUTO DIFF Differential Total Cells Counted 100 Neutrophils % (Manual) 88 % Band Neutrophils % 1 % Lymphocytes % 5 % Monocytes % 1 % Basophils % 1 % Neutrophils # (Manual) 20.6 TH/MM3 Myelocytes 2 % Promyelocytes 2 % Nucleated Red Blood Cells 1 /100 WBC Differential Comment FINAL DIFF MANUAL AUTO DIFF CONFIRMED Platelet Estimate HIGH Platelet Morphology Comment NORMAL Target Cells 1+ Stomatocytes 1+ Laboratory Tests Test 02/23/17 14:30 02/23/17 16:50 02/23/17 22:55 02/24/17 03:11 Blood Urea Nitrogen 86 MG/DL 97 MG/DL Creatinine 1.97 MG/DL 2.11 MG/DL Random Glucose 44 MG/DL 84 MG/DL Total Protein 6.0 GM/DL 6.1 GM/DL Albumin 1.6 GM/DL 1.6 GM/DL Calcium Level 6.9 MG/DL 7.9 MG/DL Phosphorus Level 5.1 MG/DL Magnesium Level 1.7 MG/DL 1.8 MG/DL Alkaline Phosphatase 236 U/L 264 U/L Aspartate Amino Transf (AST/SGOT) 47 U/L 49 U/L Alanine Aminotransferase (ALT/SGPT) 22 U/L 23 U/L Total Bilirubin 0.4 MG/DL 0.6 MG/DL Sodium Level 145 MEQ/L 143 MEQ/L Potassium Level 4.4 MEQ/L 4.0 MEQ/L Chloride Level 107 MEQ/L 103 MEQ/L Carbon Dioxide Level 30.7 MEQ/L 29.9 MEQ/L Anion Gap 7 MEQ/L 10 MEQ/L Estimat Glomerular Filtration Rate 25 ML/MIN 23 ML/MIN Lactic Acid Level 1.0 mmol/L 1.5 mmol/L Protein Corrected Calcium 7.5 MG/DL Total Creatine Kinase 28 U/L Troponin I 0.11 NG/ML 0.11 NG/ML 0.12 NG/ML B-Type Natriuretic Peptide 148 PG/ML Random Cortisol 20.5 MCG/DL Test 02/25/17 03:15 Creatinine 2.19 MG/DL Estimat Glomerular Filtration Rate 22 ML/MIN Microbiology Date/Time Source Procedure Growth Status 02/25/17 03:43 Blood Peripheral Aerobic Blood Culture Pending Received 02/25/17 03:43 Blood Peripheral Anaerobic Blood Culture Pending Received 02/25/17 03:39 Blood Peripheral Aerobic Blood Culture Pending Received 02/25/17 03:39 Blood Peripheral Anaerobic Blood Culture Pending Received 02/23/17 14:35 Blood Peripheral Aerobic Blood Culture - Preliminary Gram Negative Andrés Resulted 02/23/17 14:35 Anaerobic Blood Culture - Preliminary Proteus Species Resulted 02/23/17 14:30 Blood Peripheral Aerobic Blood Culture - Preliminary Gram Negative Andrés Resulted 02/23/17 14:30 Anaerobic Blood Culture - Preliminary Gram Negative Andrés Resulted 02/24/17 18:00 Sputum Endotracheal Gram Stain - Final Resulted 02/24/17 18:00 Sputum Endotracheal Sputum Culture Pending Resulted 02/23/17 15:10 Urine Catheterized Urine Legionella Antigen - Final PRESUMPTIVE NEGATIVE FOR LEGIONELLA P... Complete 02/23/17 15:10 Urine Catheterized Urine Streptococcus pneumoniae Antigen (M - Final PRESUMPTIVE NEGATIVE FOR STREPTOCOCCU... Complete 02/23/17 15:10 Urine Catheterized Urine Urine Culture - Preliminary Yeast-Id To Follow Resulted Imaging Last Impressions Chest X-Ray 02/24/17 0000 Signed Impressions: Service Date/Time: Friday, February 24, 2017 03:15 - CONCLUSION: 1. Bibasilar airspace disease actually appears slightly worse. There may be associated effusions. 2. Stable position of life support tubes including a right IJ central venous catheter with the tip tracking cephalad towards the head. Timothy Pascual MD Head CT 02/23/17 1400 Signed Impressions: Service Date/Time: Thursday, February 23, 2017 15:20 - CONCLUSION: Unremarkable study. KSofiya Wells MD Physical Exam GENERAL: sedated on the vent, not in respiratory distress. RR 15 SKIN: Warm and dry. No generalized rash, no ecchymoses and no evidence of embolic lesions. HEAD: Atraumatic. Normocephalic. No temporal wasting, or tenderness. EYES: [place] conjunctiva. No petechia or hemorrhage. No scleral icterus. No injection or drainage. EARS, NOSE AND THROAT: Nose without bleeding or purulent nasal discharge. She is orally intubated. NECK: Trachea midline. Supple and not tender, no meningeal signs. LIJ TLC with no evidence of infection CARDIOVASCULAR: Regular rate and rhythm. No murmurs, rubs or gallops heard RESPIRATORY: Coarse breath sounds bilaterally, with some rhonchi on R, decreased on L. ABDOMEN: Soft, obese, nondistended, did some grimacing during abdominal palpation. Has midline ventral hernia. Bowel sounds present and normoactive. No guarding. No rebound. EXTREMITIES: No clubbing, or cyanosis. Has skin changes in both legs c/w chronic leg edema and venous stasis. Has some scabs in L leg with no evidence of infection. Has pitting edema BLE NEUROLOGICAL: Sedated . No Babinski, no ankle clonus PSYCHIATRIC: Unable to assess LINE: No evidence of infection : Cuellar cath in place with no evidence of infection Assessment & Plan Remarks IMPRESSION GNR sepsis due to PNA, possibly aspiration? Respiratory failure Known COPD, sleep apnea CKD Morbid obesity Mild elevation of LFTs Leukocytosis RECOMMENDATION Continue Meropenem while C/S preliminary - will adjust and deescalate once C/S finalized Continue Levaquin Follow C/S Follow CBC Monitor progress Marlene Calderon MD Feb 25, 2017 10:42
[2017-02-25] MEDS ORDERED: DEXMEDETOMIDINE INJ 200 MCG in SODIUM CHLORIDE 0.9% INJ 50 ML IV PRN (10:45)
[2017-02-25] MEDS ORDERED: FUROSEMIDE 40 MG/4 ML VIAL IV PUSH ONE (10:45)
[2017-02-25 11:06] LABS: AUTOMATED NEUTROPHIL # 14.1 TH/MM3 (1.8-7.7); BASOPHIL # 0.1 TH/MM3 (0-0.2); BASOPHIL % 0.3 % (0.0-2.0); EOSINOPHIL # 0.1 TH/MM3 (0-0.4); EOSINOPHIL % 0.8 % (0.0-4.0); MEAN CELL VOLUME 78.8 FL (80.0-100.0); MEAN CORPUSCULAR HEMOGLOBIN 24.4 PG (27.0-34.0); MEAN CORPUSCULAR HGB CONC 30.9 % (32.0-36.0); MONO % 3.7 % (0.0-8.0); NEUT % 74.2 % (16.0-70.0); PLATELET COUNT 337 TH/MM3 (150-450); RED BLOOD COUNT 2.74 MIL/MM3 (4.00-5.30); RED CELL DISTRIBUTION WIDTH 18.9 % (11.6-17.2)
[2017-02-25 11:13] LABS: BICARBONATE 31.3 MEQ/L (21.0-32.0); HEMO FLAGS AUTO DIFF; POTASSIUM 3.7 MEQ/L (3.5-5.1); TOTAL BILIRUBIN ADULT 0.4 MG/DL (0.2-1.0)
[2017-02-25 11:17] LABS: HEMATOCRIT 21.6 % (35.0-46.0)
[2017-02-25] MEDS ORDERED: SODIUM CHLOR 0.9% 250 ML INJ 250 ML IV ONE (11:30)
[2017-02-25 11:58] LABS: BANDS 4 % (0-6); EOSINOPHILS 1 % (0-4); MYELOCYTES 1 % (0-0); NEUTROPHIL # MANUAL DIFF 16.5 TH/MM3 (1.8-7.7); PLATELET ESTIMATE SMEAR NORMAL (NORMAL); PLATELET MORPHOLOGY NORMAL (NORMAL); POLYS (SEG NEUTROPHILS) 82 % (16-70); SCAN/DIFF FINAL DIFF MANUAL; TARGET CELLS 1+ (NORMAL); WBC DIFF SAMPLE 100
[2017-02-25 17:18] LABS: BLOOD GAS CARBOXYHEMOGLOBIN 1.5 % (0-4); BLOOD GAS HCO3 30 mmol/L (22-26); BLOOD GAS METHEMOGLOBIN 1.4 % (0-2); BLOOD GAS O2 HGB SATURATION 95 % (90-100); BLOOD GAS OXYGEN CONTENT 13.2 Vol % (12.0-20.0); BLOOD GAS PCO2 62 mmHg (38-42); BLOOD GAS PO2 107 mmHg (61-120); BLOOD GAS TOTAL HGB 9.8 G/DL (12.0-16.0); TEMP CORR TO 98.6
[2017-02-25 17:19] LABS: CRITICAL VALUE YES; DRAW SITE RT RADIAL; FIO2 40 %; NUMBER OF ARTERIAL PUNCTURES 1; OXYGEN DEVICE VENTILATOR; STAT YES; ULNAR PULSE PRESENT; VENT SETTINGS CPAP/IPAP 5/EPAP +5
[2017-02-25] MEDS: LEVOFLOXACIN 750 MG PREMIX INJ 150 ML IV SCH (17:49)
[2017-02-25] MEDS: DEXAMETHASONE SOD PHOS 4 MG/ML VIAL IV PUSH SCH (18:02)
--- NOTE | 2017-02-25 18:02 | ECHRPT ---
Indication: EF ASSESS. OF CHF CONCLUSIONS The left ventricular systolic function is normal with an estimated ejection fraction in the range of 55-60. No regional wall motion abnormalities are present. Normal left ventricular size. Wall thickness is normal. BP: 101 / 49 HR: 67 Rhythm: Sinus MEASUREMENTS (Male / Female) Normal Values Technical Quality:Technically difficult study 2D ECHO LV Ejection Fraction MOD 4C 54.1 % LV Ejection Fraction 4C AL 55.2 % M-MODE LV Diastolic Diameter MM 6.0 cm 4.2 - 5.9 / 3.9 - 5.3 cm LV Systolic Diameter MM 4.4 cm LV Ejection Fraction MM Teich 51.8 % IVS Diastolic Thickness MM 1.1 cm 0.6 - 1.0 / 0.6 - 0.9 cm LVPW Diastolic Thickness MM 1.0 cm 0.6 - 1.0 / 0.6 - 0.9 cm LV Relative Wall Thickness MM 0.3 0.24 - 0.42 / 0.22 - 0.42 FINDINGS LEFT VENTRICLE The left ventricular systolic function is normal with an estimated ejection fraction in the range of 55-60%. No regional wall motion abnormalities are present. Normal left ventricular size. Wall thickness is normal. Manfred El MD (Electronically Signed) Final Date:25 February 2017 18:02
[2017-02-25 18:55] LABS: HEMATOCRIT 26.5 % (35.0-46.0); REVIEW FLAG FINAL
--- NOTE | 2017-02-25 22:10 | HHI.CCPN ---
Subjective Remarks/Hospital Course 72-year-old female with past medical history of hypertension, IDDM , obesity, Sleep apnea on home C Pap, hyperlipidemia, prior stroke with residual left side weakness, COPD who presents to [facility] with history of altered mental status x2 days. Her son states yesterday she slept most of the day yesterday; did not eat all day.. She had stayed home with her ankit ce all day but when her son came home from work he was able to arouse her and gave her some ice cream and Lantus 37 units. EVAC administered Narcan without response. Upon arrival ED physician states she was moaning to noxious stimuli and required intubation for airway protection. Glucose was 44 and she was given amp of D50. She was afebrile but findings were consistent with severe sepsis including white blood cell count 22, chest x-ray with left lower lobe and right perihilar opacities. UA had trace LE and [address] brain showed no acute abnormality. She was given azithromycin, Zosyn in the emergency department. Blood cultures and urine cultures have been obtained. She was started on propofol initially for sedation but became hypotensive so was given 2 L normal saline bolus and started on a Versed drip. She has been recently admitted 10/24/16 through 11/07. She had been sent to [place] emergency Department for atrial fibrillation with RVR rate in the 120s and then subsequently was discovered to have hypercapnic respiratory failure. She had also been treated for MRSA pneumonia. Unable to obtain further review of systems from patient because she is intubated. 02/24 Remains intubated and sedated. Did not tolerate CPAP. Blood culture 10/09 + GNR...later resulted Proteus. Repeat blood culture sent and blood culture reordered. Subjective: 02/25 Off levophed. Sedation vacation this morning and following commands with all extremities. Was biting on tube initially so ordered precedex but later she calmed down and was able to transition to CPAP without precedex or other sedation..Tolerated CPAP 5/5 with RSBI 40s and no desaturation but low tidal volumes ~250 and ABG 7.30 /PaCO2 62/ PaO2 107/bicarb 30. No cuff leak. Plan eventual extubation to Bipap but will need more time. Starting decadron, diamox. Objective Vital Signs Date Time Temp Pulse Resp B/P (MAP) Pulse Ox O2 Delivery O2 Flow Rate FiO2 02/25/17 20:37 98 40 02/25/17 18:00 82 02/25/17 16:00 99.1 15 132/61 (84) 02/23/17 16:06 Ventilator Intake and Output 02/25/17 02/25/17 02/26/17 08:00 16:00 00:00 Intake Total 957 ml 1060 ml Output Total 625 ml 725 ml Balance 332 ml 335 ml Result Diagram: 02/25/17 1815 02/25/17 1030 Other Results Microbiology Date/Time Source Procedure Growth Status 02/23/17 15:10 Urine Catheterized Urine Legionella Antigen - Final PRESUMPTIVE NEGATIVE FOR LEGIONELLA P... Complete 02/23/17 15:10 Urine Catheterized Urine Streptococcus pneumoniae Antigen (M - Final PRESUMPTIVE NEGATIVE FOR STREPTOCOCCU... Complete Laboratory Tests Test 02/25/17 17:09 Blood Gas Puncture Site RT RADIAL Blood Gas Patient Temperature 98.6 Blood Gas HCO3 30 mmol/L (22-26) Blood Gas Base Excess 4.0 mmol/L (-2-2) Blood Gas Oxygen Saturation 95 % (90-100) Arterial Blood pH 7.30 (7.380-7.420) Arterial Blood Partial Pressure CO2 62 mmHg (38-42) Arterial Blood Partial Pressure O2 107 mmHg (61-120) Arterial Blood Oxygen Content 13.2 Vol % (12.0-20.0) Arterial Blood Carboxyhemoglobin 1.5 % (0-4) Arterial Blood Methemoglobin 1.4 % (0-2) Blood Gas Hemoglobin 9.8 G/DL (12.0-16.0) Oxygen Delivery Device VENTILATOR Blood Gas Ventilator Setting CPAP/IPAP 5/EPAP +5 Blood Gas Inspired Oxygen 40 % Objective Remarks GENERAL: Obese female who is orotracheally intubated, anasarca SKIN: Warm and dry. There is an estimated 5 cm stage II decubitus ulcer on left buttocks and estimated 1.5 cm decubitus ulcer on right buttocks (present on admission) HEAD: Atraumatic. Normocephalic. EYES: Pupils pinpoint bilaterally. No scleral icterus. No injection or drainage. ENT: No nasal bleeding or discharge. Mucous membranes dry NECK: Trachea midline. Thick neck, unable to appreciate JVD. CARDIOVASCULAR: Regular rate and rhythm. No murmurs rubs or gallops appreciated. RESPIRATORY: Orotracheally intubated. Scattered bilateral rhonchi. No wheezes or Rales GASTROINTESTINAL: Abdomen obese, soft, bowel sounds present. No tenderness appreciable. No rebound. : Cuellar in place with yellow urine output. MUSCULOSKELETAL: Extremities without clubbing, cyanosis. There are venous stasis changes of bilateral lower extremities with scaling of the skin. There is diffuse anasarca with 2+ pitting edema bilateral lower extremities. NEUROLOGICAL: Opens eyes spontaneously and follows commands with all extremities.. A/P Assessment and Plan NEURO: Acute encephalopathy (likely multifactorial secondary to toxic metabolic, hypo- glycemia) may also have been hypercapnic but required intubation before ABG was performed. History of stroke with residual left hemiparesis Deconditioning CT brain 02/23/17no acute abnormality Minimize sedation, precedex if needed. Following commands. RESP: Acute respiratory failure COPD Obstructive sleep apnea Pneumonia Intubated in ED for airway protection. DuoNeb every 6 hours. Albuterol every 2 hours as needed Ventilator bundle Daily spontaneous breathing trial Decadron 4 mg IV every 6 hours started 02/25 due to absence of cuff leak. Would plan to extubate to BiPAP due to significant history of obstructive sleep apnea on home C Pap CV: History of paroxysmal atrial fibrillation on chronic anticoagulation. Currently in sinus rhythm Mild troponin elevation may be due secondary to sepsis and renal failure. Would avoid aspirin at this time due to anemia and concern for bleeding Chronic diastolic heart failure Hypotensive following intubation and sedation. Received 2 L normal saline in the emergency department. BNP on admission 148 2-D echo 10/24/16ejection fraction 55%. Normal wall motion with no regional wall motion abnormalities. Positive LVH. 2-D echo 02/25/17ejection impression 55-60%. No regional wall motion abnormalities. Serial troponins with mild elevation ~ 0.12 likely secondary to sepsis. GI: Chronic protein energy malnutrition Status post cholecystectomy Protonix 40 mg IV every 12 hours Glucerna 1.5 goal rate 40 mL per hour per nutrition recommendations Liver u/s - liver heterogeneous without ductal dilatation. Status post cholecystectomy. FEN/RENAL: Acute kidney injury overlying chronic kidney disease stage III Anasarca - likely secondary to chronic hypercapnea and hypoalbuminemia Cuellar in place. Monitor intake and output. Monitor electrolyte. Replace electrolytes as clinically indicated. ID: UTI Severe Sepsis Leukocytosis Patient has recent hospitalization and MRSA pneumonia so covered with Vanc #3, Zosyn, Levaquin 02/23 #3 on admission 02/24. . Blood cultures +for Proteus . Started Meropenem 02/24 #2 due to concern for resistant Proteus (did not choose ertapenem because the culture not resulted and Pseudomonas not ruled out) ID consulted upon initiation of carbapenem. Urine Legionella and pneumococcal antigen negative. Sputum culture 02/24 NGTD. Repeat blood cultures pending Dr. Calderon following HEME: On chronic anticoagulation with Eliquis due to Afib. Acute anemia overlying chronic iron deficiency anemia. Transfused 1 unit packed red cells for hemoglobin of 7.4, 1unit 02/25. Stool is brown and gastric output is nonbloody. Stool Hemoccult positive. Gi consult Hold Eliquis 5 mill grams twice a day ENDO: IDDM Hypoglycemia Hypoglycemia on admission - son did not seem certain if they had mixed up insulin with patients daughter's. Insulin had been administed after poor po intake. D/c D10@30 mL per hour as glucose improved after tube feeds. random cortisol 20 PROPH: Hold pharmacologic DVT prophylaxis due to anemia. SCDs for DVT prophylaxis. Protonix 40 mg IV every 12 hours for stress ulcer prophylaxis ACCESS: L IJ CVL placed 02/24 #2. Palliative care was following last admission. She was full code. Cheryl sepulveda had requested to be the first call. I called this number and there was no answer. Also called Noemí was no answer. Later got a hold of Memo who states that Noemí is now . Patients is and there are now 3 living adult children. She did not designated healthcare surrogate. Memo states that his mother had expressed a desire to be full code. Will work towards extubation and patient may survive this hospitalization but is at risk for significant setback as her overall condition and functional status appears poor. Level 3 Laura Beck MD Feb 25, 2017 22:10
[2017-02-26] VITALS (17 sets, daily range): BP systolic 133–156; BP diastolic 63–92; PULSE 68–92; RESP 16–18; TEMP 97.8–98.5; O2SAT 95–99
[2017-02-26] MEDS: DEXAMETHASONE SOD PHOS 4 MG/ML VIAL IV PUSH SCH ×4 (00:22→18:49)
[2017-02-26] MEDS: CHLORHEXIDINE GLUCONATE 2 % 1 PACK (2 CLOTHS) TOP SCH (03:14)
[2017-02-26] MEDS: RESP: ALBUTEROL 2.5 MG/IPRATROPIUM 0.5 MG NEB (SCH) INH ×4 (04:02→19:59)
[2017-02-26] MEDS: PANTOPRAZOLE SODIUM 40 MG VIAL IV SCH ×2 (05:31→16:07)
[2017-02-26] MEDS: MEROPENEM INJ 1,000 MG in SODIUM CHLORIDE 0.9% INJ 100 ML IV SCH ×2 (05:41→16:07)
--- NOTE | 2017-02-26 07:58 | PD.CONS ---
HPI History of Present Illness This is a 72 year old female with a history of CVA with left sided weakness, paroxysmal atrial fibrillation, COPD, hypertension, diabetes, sleep apnea, and hyperlipidemia who was brought to the emergency room for evaluation of altered mental status x 2 days. She was noted to have a glucose of 44 and was given D50. She was also noted to have significant leukocytosis with abnormal imaging of the chest with left lower lobe and right perihilar opacities. She was also noted to have anemia with a hemoglobin of 6.7/21.6 and heme positive stool. She was transfused 3 units of PRBC and GI was consulted for further evaluation and treatment. The patient is awake, intubated, on the ventilator. She can answer some simple yes/no questions by nodding, but is not able to go into any detail. She reports that she has had some nausea/vomiting at home. She denies abdominal pain. She cannot answer when asked if she has had any blood in her stool or black tarry stools. She does nod "yes" when asked if she has any history of peptic ulcer disease. Of note, she has a history of paroxysmal atrial fibrillation and takes Eliquis at home. Called and spoke to Cheryl Fan ([phone]) and discussed EGD- procedure, risks, benefits and she would like to proceed. (Esther Wells) PFSH Past Medical History Paroxysmal atrial fibrillation, chronic anticoagulation Objective sleep apnea, on home C Pap Diabetes mellitus Hypertension Hyperlipidemia Stroke with residual left-sided hemiparesis COPD Incontinent of urine Hx PUD Past Surgical History Hernia repair Appendectomy Cholecystectomy Right hip replacement (Esther Wells) Coded Allergies: *MDRO Multi-Drug Resistant Organism (Verified Adverse Reaction, Unknown, ) MRSA PCR Screen POSITIVE - 10/24/2016 MRSA (sputum)-10/24/16 Medications Allergies Coded Allergies Type Severity Reaction Last Updated Verified *MDRO Multi-Drug Resistant Organism Adverse Reaction Unknown 10/29/16 Yes Active Scripts Medications Dose Route/Sig Max Daily Dose Days Date Category Furosemide 40 Mg Tab 40 Mg PO DAILY 11/07/16 Rx Senna Plus 8.6-50 mg (Sennosides-Docusate Sodium) 1 Tab Tab 1 Tab PO DAILY 11/07/16 Rx Pantoprazole (Pantoprazole Sodium) 40 Mg Tab 40 Mg PO Q24H 11/07/16 Rx Hydrocodone-Acetaminophen 5-325 mg Tab 1 Tab PO Q4H PRN 11/07/16 Rx Cardizem (Diltiazem HCl) 30 Mg Tab 60 Mg PO Q8HR 11/07/16 Rx Bisac-Evac Supp (Bisacodyl) 10 Mg Supp 10 Mg RECTAL DAILY PRN 11/07/16 Rx Eliquis (Apixaban) 5 Mg Tab 5 Mg PO BID 11/07/16 Rx Family History Unable to obtain directly from patient due to mental status. Mother of cancer. Social History Uses snuff No history of alcohol or illicit drug use (Esther Wells) Review of Systems ROS Unable to obtain. Does nod yes when asked if she has had n/v and denies abdominal pain (Esther Wells) GI Exam Vitals I&O Vital Signs Date Time Temp Pulse Resp B/P (MAP) Pulse Ox O2 Delivery O2 Flow Rate FiO2 02/26/17 06:00 82 02/26/17 04:17 98 40 02/26/17 04:00 40 02/26/17 04:00 81 02/26/17 04:00 98.5 92 16 133/92 (106) 97 02/26/17 02:00 68 02/26/17 00:00 98.5 85 16 146/65 (92) 97 02/26/17 00:00 85 02/26/17 00:00 40 02/25/17 23:55 98 40 02/25/17 22:00 69 02/25/17 20:37 98 40 02/25/17 20:00 98.4 71 16 121/58 (79) 98 02/25/17 20:00 40 02/25/17 20:00 67 02/25/17 18:00 82 02/25/17 16:00 98 02/25/17 16:00 40 02/25/17 16:00 99.1 98 15 132/61 (84) 95 02/25/17 15:08 100 40 02/25/17 14:00 81 02/25/17 12:00 40 02/25/17 12:00 78 02/25/17 12:00 99.1 78 15 114/58 (76) 98 02/25/17 10:48 98 40 02/25/17 10:30 40 02/25/17 10:00 68 02/25/17 08:09 98 35 02/25/17 08:00 35 02/25/17 08:00 98.8 66 18 107/52 (70) 100 02/25/17 08:00 66 I/O 02/25/17 02/25/17 02/25/17 02/26/17 02/26/17 02/26/17 06:59 14:59 22:59 06:59 14:59 22:59 Intake Total 907 ml 50 ml 1060 ml 872 ml Output Total 625 ml 725.0 ml 1800 ml Balance 282 ml 50 ml 335.0 ml -928 ml Intake Oral 0 ml IV Total 693 ml 50 ml 310 ml 276 ml Tube Feeding 124 ml 536 ml Packed Cells 650 ml Tube Irrigant 100 ml Other 90 ml 60 ml Output Urine Total 625 ml 725 ml 1800 ml Gastric Drainage Total 0 ml Tube Feeding Residual Discard 0 ml 0 ml # Bowel Movements 1 2 Imaging Last Impressions Chest X-Ray 02/24/17 0000 Signed Impressions: Service Date/Time: Friday, February 24, 2017 10:55 - CONCLUSION: Abnormal right jugular line. Adequate placement of left jugular line.. Obinna Lobo MD Head CT 02/23/17 1400 Signed Impressions: Service Date/Time: Thursday, February 23, 2017 15:20 - CONCLUSION: Unremarkable study. Gregory Wells MD Laboratory Test 02/25/17 10:30 02/25/17 17:09 02/25/17 18:15 White Blood Count 19.0 TH/MM3 Red Blood Count 2.74 MIL/MM3 Hemoglobin 6.7 GM/DL 8.4 GM/DL Hematocrit 21.6 % 26.5 % Mean Corpuscular Volume 78.8 FL Mean Corpuscular Hemoglobin 24.4 PG Mean Corpuscular Hemoglobin Concent 30.9 % Red Cell Distribution Width 18.9 % Platelet Count 337 TH/MM3 Mean Platelet Volume 7.8 FL Neutrophils (%) (Auto) 74.2 % Lymphocytes (%) (Auto) 21.0 % Monocytes (%) (Auto) 3.7 % Eosinophils (%) (Auto) 0.8 % Basophils (%) (Auto) 0.3 % Neutrophils # (Auto) 14.1 TH/MM3 Lymphocytes # (Auto) 4.0 TH/MM3 Monocytes # (Auto) 0.7 TH/MM3 Eosinophils # (Auto) 0.1 TH/MM3 Basophils # (Auto) 0.1 TH/MM3 CBC Comment AUTO DIFF Differential Total Cells Counted 100 Neutrophils % (Manual) 82 % Band Neutrophils % 4 % Lymphocytes % 11 % Monocytes % 1 % Eosinophils % 1 % Neutrophils # (Manual) 16.5 TH/MM3 Myelocytes 1 % Differential Comment FINAL DIFF MANUAL Platelet Estimate NORMAL Platelet Morphology Comment NORMAL Target Cells 1+ Blood Urea Nitrogen 97 MG/DL Creatinine 2.01 MG/DL Random Glucose 157 MG/DL Total Protein 5.6 GM/DL Albumin 1.4 GM/DL Calcium Level 7.2 MG/DL Alkaline Phosphatase 301 U/L Aspartate Amino Transf (AST/SGOT) 45 U/L Alanine Aminotransferase (ALT/SGPT) 20 U/L Total Bilirubin 0.4 MG/DL Sodium Level 139 MEQ/L Potassium Level 3.7 MEQ/L Chloride Level 100 MEQ/L Carbon Dioxide Level 31.3 MEQ/L Anion Gap 8 MEQ/L Estimat Glomerular Filtration Rate 24 ML/MIN Protein Corrected Calcium 8.0 MG/DL Blood Gas Puncture Site RT RADIAL Blood Gas Patient Temperature 98.6 Blood Gas HCO3 30 mmol/L Blood Gas Base Excess 4.0 mmol/L Blood Gas Oxygen Saturation 95 % Arterial Blood pH 7.30 Arterial Blood Partial Pressure CO2 62 mmHg Arterial Blood Partial Pressure O2 107 mmHg Arterial Blood Oxygen Content 13.2 Vol % Arterial Blood Carboxyhemoglobin 1.5 % Arterial Blood Methemoglobin 1.4 % Blood Gas Hemoglobin 9.8 G/DL Oxygen Delivery Device VENTILATOR Blood Gas Ventilator Setting CPAP/IPAP 5/EPAP +5 Blood Gas Inspired Oxygen 40 % Date/Time Source Procedure Growth Status 02/25/17 03:43 Blood Peripheral Aerobic Blood Culture Pending Received 02/25/17 03:43 Blood Peripheral Anaerobic Blood Culture Pending Received 02/24/17 18:00 Sputum Endotracheal Gram Stain - Final Resulted 02/24/17 18:00 Sputum Endotracheal Sputum Culture - Preliminary LIGHT GROWTH NORMAL RESPIRATORY DAMASO... Resulted 02/23/17 15:10 Urine Catheterized Urine Legionella Antigen - Final PRESUMPTIVE NEGATIVE FOR LEGIONELLA P... Complete 02/23/17 15:10 Urine Catheterized Urine Streptococcus pneumoniae Antigen (M - Final PRESUMPTIVE NEGATIVE FOR STREPTOCOCCU... Complete Physical Examination HEENT: Normocephalic; atraumatic; no jaundice. CHEST: Course breath sounds. OETT to vent CARDIAC: RRR ABDOMEN: Soft, obese, nondistended, nontender; no hepatosplenomegaly; bowel sounds are present in all four quadrants. EXTREMITIES: BLE edema. SKIN: Normal; no rash; no jaundice. MECHANIC/WELDER: Intubated, but awake and following commands, nodding appropriately (Esther Wells) Assessment and Plan Plan ASSESSMENT: - Anemia with hemoccult (+) stool. Hx of PUD. (+) Eliquis use at home. Pt nods "yes" when asked if she has had any n/v, but denies abdominal pain. H/H 6.7/21.6. S/P 3 units PRBC. 8.4/26.5. Protonix with BID dosing. Called and spoke to Cheryl Fan ([phone]) and discussed EGD- procedure, risks, benefits and she would like to proceed. Plan is for possible extubation later today and therefore will hold TF now (830) and plan for EGD later this afternoon prior to extubation. - Sepsis with leukocytosis/bacteremia/UTI/PNA. Urine cx with yeast- ID to follow, Blood cultures with PSAE, GNR, Gr D Enterococcus, proteus species. Meropenem. Levaquin. - Acute respiratory failure with PNA, COPD, LAXMI. Vent per CCM, Nebs, Meropenem , Levaquin. - Elevated troponin, CHF per attending. Essentially the same x 3. - HIRAM, Creat 2.01. GFR 24. IVF. - Hx PAfib, on chronic anticoagulation at home. Eliquis at home. On hold. - DM per attending. PLAN: - Plan for EGD today - Obtain consents - NPO - TF turned off at 0830 - Protonix 40mg IV BID - Monitor HH - Transfuse as necessary - Supportive care - Further recommendations to follow based on results of above - Pt seen and examined by Dr. Nelson and myself and this note is written on his behalf (Esther Wells) Physician Comments Seen and examined, plan as above, further recommendations to follow. (Bharati Nelson MD) Esther Wells Feb 26, 2017 07:58 Bharati Nelson MD Feb 26, 2017 14:39
[2017-02-26] MEDS: DOCUSATE SODIUM 50 MG/SENNA 8.6 MG TAB PO SCH ×2 (09:15→21:00)
[2017-02-26] MEDS: CHLORHEXIDINE 0.12% (ORAL KIT) 15 ML CUP MT SCH ×3 (09:15→21:34)
[2017-02-26] MEDS: SODIUM CHLORIDE 0.9% FLUSH 10 ML FLUSH IV FLUSH SCH ×2 (09:15→21:35)
[2017-02-26] MEDS ORDERED: VANCOMYCIN INJ 1,000 MG in SODIUM CHLOR 0.9% 250 ML INJ 250 ML IV ONE (10:00)
[2017-02-26 10:32] LABS: AUTOMATED NEUTROPHIL # 13.1 TH/MM3 (1.8-7.7); BASOPHIL % 0.1 % (0.0-2.0); HEMATOCRIT 29.8 % (35.0-46.0); LYMPH % 12.1 % (9.0-44.0); LYMPHOCYTE # 1.8 TH/MM3 (1.0-4.8); MEAN CELL VOLUME 80.5 FL (80.0-100.0); MEAN CORPUSCULAR HEMOGLOBIN 25.3 PG (27.0-34.0); MEAN CORPUSCULAR HGB CONC 31.4 % (32.0-36.0); MONO % 0.8 % (0.0-8.0); PLATELET COUNT 300 TH/MM3 (150-450); RED CELL DISTRIBUTION WIDTH 18.4 % (11.6-17.2)
[2017-02-26 10:37] LABS: HEMO FLAGS AUTO DIFF
[2017-02-26] MEDS ORDERED: fentaNYL DRIP 250 ML IV PRN (10:45)
[2017-02-26] MEDS ORDERED: MIDAZOLAM 100 MG/100 ML INJ 100 ML IV PRN (10:45)
[2017-02-26] MEDS ORDERED: DEXTROSE 50% IN WATER 50 ML VIAL(D50) IV PRN (11:00)
[2017-02-26] MEDS ORDERED: GLUCAGON 1 MG/ML VIAL OTHER PRN (11:00)
[2017-02-26 11:01] LABS: BICARBONATE 29.5 MEQ/L (21.0-32.0); POTASSIUM 3.8 MEQ/L (3.5-5.1)
[2017-02-26] MEDS: fentaNYL DRIP 250 ML IV SCH (11:01)
--- NOTE | 2017-02-26 11:10 | HHI.CCPN ---
Subjective Remarks/Hospital Course 72-year-old female with past medical history of hypertension, IDDM , obesity, Sleep apnea on home C Pap, hyperlipidemia, prior stroke with residual left side weakness, COPD who presents to [facility] with history of altered mental status x2 days. Her son states yesterday she slept most of the day yesterday; did not eat all day.. She had stayed home with her ankit ce all day but when her son came home from work he was able to arouse her and gave her some ice cream and Lantus 37 units. EVAC administered Narcan without response. Upon arrival ED physician states she was moaning to noxious stimuli and required intubation for airway protection. Glucose was 44 and she was given amp of D50. She was afebrile but findings were consistent with severe sepsis including white blood cell count 22, chest x-ray with left lower lobe and right perihilar opacities. UA had trace LE and [address] brain showed no acute abnormality. She was given azithromycin, Zosyn in the emergency department. Blood cultures and urine cultures have been obtained. She was started on propofol initially for sedation but became hypotensive so was given 2 L normal saline bolus and started on a Versed drip. She has been recently admitted 10/24/16 through 11/07. She had been sent to [place] emergency Department for atrial fibrillation with RVR rate in the 120s and then subsequently was discovered to have hypercapnic respiratory failure. She had also been treated for MRSA pneumonia. Unable to obtain further review of systems from patient because she is intubated. 02/24 Remains intubated and sedated. Did not tolerate CPAP. Blood culture 10/09 + GNR...later resulted Proteus. Repeat blood culture sent and blood culture reordered. 02/25 Off levophed. Sedation vacation this morning and following commands with all extremities. Was biting on tube initially so ordered precedex but later she calmed down and was able to transition to CPAP without precedex or other sedation..Tolerated CPAP 5/5 with RSBI 40s and no desaturation but low tidal volumes ~250 and ABG 7.30 /PaCO2 62/ PaO2 107/bicarb 30. No cuff leak. Plan eventual extubation to Bipap but will need more time. Starting decadron, diamox. Subjective: 02/26: Afebrile. Plan for EGD this AM and possible extubation post procedure. Patient is awake and alert and following commands. Stable overnight. Transfused 2 units PRBCs. Objective Vital Signs Date Time Temp Pulse Resp B/P (MAP) Pulse Ox O2 Delivery O2 Flow Rate FiO2 02/26/17 09:50 98 40 02/26/17 06:00 82 02/26/17 04:00 98.5 16 133/92 (106) 02/23/17 16:06 Ventilator Intake and Output 02/26/17 02/26/17 02/27/17 08:00 16:00 00:00 Intake Total 872 ml Output Total 1800 ml Balance -928 ml Result Diagram: 02/26/17 0958 02/26/17 0958 Other Results Microbiology Date/Time Source Procedure Growth Status 02/25/17 03:43 Blood Peripheral Aerobic Blood Culture Pending Received 02/25/17 03:43 Blood Peripheral Anaerobic Blood Culture Pending Received 02/24/17 18:00 Sputum Endotracheal Gram Stain - Final Resulted 02/24/17 18:00 Sputum Endotracheal Sputum Culture - Preliminary LIGHT GROWTH NORMAL RESPIRATORY DAMASO... Resulted 02/23/17 15:10 Urine Catheterized Urine Legionella Antigen - Final PRESUMPTIVE NEGATIVE FOR LEGIONELLA P... Complete 02/23/17 15:10 Urine Catheterized Urine Streptococcus pneumoniae Antigen (M - Final PRESUMPTIVE NEGATIVE FOR STREPTOCOCCU... Complete Imaging Last Impressions Chest X-Ray 02/24/17 0000 Signed Impressions: Service Date/Time: Friday, February 24, 2017 10:55 - CONCLUSION: Abnormal right jugular line. Adequate placement of left jugular line.. Obinna Lobo MD Head CT 02/23/17 1400 Signed Impressions: Service Date/Time: Thursday, February 23, 2017 15:20 - CONCLUSION: Unremarkable study. Gregory Wells MD Objective Remarks GENERAL: 72 -year-old female, currently orotracheally intubated SKIN: Warm and dry. There is an estimated 5 cm stage II decubitus ulcer on left buttocks and estimated 1.5 cm stage II decubitus ulcer on right buttocks ( present on admission) HEAD: Atraumatic. Normocephalic. EYES: Pupils are 2 mm bilaterally and reactive. No scleral icterus. No injection or drainage. ENT: No nasal bleeding or discharge. Mucous membranes are moderately moist and pink. Orotracheally intubated NECK: Trachea midline. Obese neck, unable to appreciate JVD. Left IJ is clean dry and intact. Prior right IJ site without bleeding or erythema CARDIOVASCULAR: RRR. S1-S2, no S4. Without murmur RESPIRATORY: Diminished breath sounds throughout due to body habitus. Few scattered coarse crackles appreciated anteriorly GASTROINTESTINAL: Abdomen obese, soft, nontender. Hypoactive bowel sounds are appreciated. : Cuellar in place with yellow urine output. MUSCULOSKELETAL: Extremities with chronic venous stasis bilateral lower extremities.. 1+ pitting edema bilateral lower extremities. NEUROLOGICAL: Cranial nerves II through XII grossly intact. Strength 4-5 left upper and lower extremity. 5 out of 5 right upper and lower extremity Normal sensation light touch and pinprick. A/P Assessment and Plan NEURO/PSYCH: Acute toxic metabolic encephalopathy History of vascular access with residual left weakness Generalized Deconditioning Chronic opiate use CT brain 02/23/17no acute abnormality Currently on fentanyl drip at 50 mcg/h. Analgesia while intubated. Midazolam drip ordered as well for sedation if indicated Dexmedetomidine drip ordered as needed for sedation Patient is on hydrocodone/acetaminophen 5/325 one tablet every 4 hours when necessary at home RESP: Acute hypoxemic respiratory failure COPD Obstructive sleep apnea - CPAP at home. Pneumonia ACV 16/500/5/40 Ventilator bundle Albuterol/ipratropium aerosols every 6 hours. Albuterol aerosols every 2 hours as needed Daily spontaneous breathing trial Decadron 4 mg IV every 6 hours started 02/25 is for dosages due to absence of cuff leak. Have family bring in CPAP machine. Unknown home settings currently. Chest x-ray is bilateral upper lobe which is likely infectious etiology CV: History of paroxysmal atrial fibrillation on chronic anticoagulation. Currently in sinus rhythm Mild troponin elevation may be due secondary to sepsis and renal failure. Chronic diastolic heart failure Hypertension Severe sepsis 2-D echo 10/24/16ejection fraction 55%. Normal wall motion with no regional wall motion abnormalities. Positive LVH. 2-D echo 02/25/17ejection impression 55-60%. No regional wall motion abnormalities. Serial troponins with mild elevation ~ 0.12 likely secondary to sepsis. Patient is on diltiazem 60 mg by mouth every 8 hours at home Patient is on furosemide 40 mg by mouth daily at home. GI: Chronic protein energy malnutrition Status post cholecystectomy Pantoprazole 40 mg IV every 12 hours Docusate sodium/senna 1 tablet twice a day for bowel regimen Glucerna 1.5 goal rate 45 cc per hour per nutrition recommendations and plan for EGD Liver u/s - liver heterogeneous/echogenetic without ductal dilatation. Status post cholecystectomy. FEN/RENAL: Acute kidney injury overlying chronic kidney disease stage IIIb Cuellar in place. Monitor intake and output. Monitor electrolyte. Replace electrolytes as clinically indicated. She might be stage IV this point ID: Polymicrobial bacteremia - Pseudomonas, gram-negative grace,'s group D enterococcus and Proteus Funguria Pertinent cultures 02/23 - blood cultures 2 - Pseudomonas, gram-negative grace, group D enterococcus , Proteus 02/23 - urine - yeast NOS 02/24 - sputum/urine Legionella and pneumococcal antigens no growth/negative 02/25 - blood cultures 2 -no growth Day 4 levofloxacin, vancomycin. Day #3 meropenem Infectious disease following 2-D echocardiogram revealed no vegetations on heart valves HEME/ONC: Chronic Apixabam use Acute anemia overlying chronic iron deficiency anemia. Leukocytosis Transfused 2 unit packed red cells since admission Follow-up CBC daily. Monitor trends ENDO: IDDM Hypoglycemia - resolved Currently on sliding scale insulin with Novulin R with Accu-Cheks every 4 hours to maintain euglycemia/medium regimen Patient is on insulin glargine 37 units at home. MSK Elevated BMI Wt loss encouraged PROPH: Hold pharmacologic DVT prophylaxis due to anemia. SCDs for DVT prophylaxis. Until resolved 40 mg IV every 12 hours for stress ulcer prophylaxis ACCESS: L IJ CVL placed 02/24 #2. Right IJ inserted 02/23 removed 02/24. Level III follow-up Bernardo Sheikh MD Feb 26, 2017 11:10
[2017-02-26 11:17] LABS: PLATELET ESTIMATE SMEAR NORMAL (NORMAL); PLATELET MORPHOLOGY NORMAL (NORMAL); SCAN/DIFF AUTO DIFF CONFIRMED; STOMATOCYTES 1+ (NORMAL); TARGET CELLS 1+ (NORMAL)
[2017-02-26] MEDS: INSULIN ASPART SUPPLEMENTAL SCALE SQ SCH ×3 (12:00→20:00)
--- NOTE | 2017-02-26 12:02 | HHI.IDPN ---
Subjective Subjective Remarks Patient is a 72-year-old female brought into the hospital after she was found poorly responsive. Patient has known COPD, sleep apnea, and he uses a home CPAP machine. Apparently the patient was sleeping most of the day one day prior to admission, and he did not eat much that day. Her niece was apparently with her and when the son came to see her she was quite lethargic although she did wake up. However she did not really improve much, and even back was called , and they gave her Narcan without any response. In the emergency room she continued to be obtunded, and was moaning a lot. She ended up getting intubated for airway protection. Her glucose was 44 and she was given an amp of 250. There was no fever or chills prior to admission. Her chest x-ray showed left lower lobe infiltrate with some right perihilar opacities. She was admitted with severe sepsis, and her white count was 22,000, and she was hypotensive requiring pressors. Since admission highest temperature being 99. Her urinalysis was fairly unremarkable. 2 blood cultures were done on admission , and they are now reported as growing gram-negative andrés. Notes reviewed Afebrile Tolerating CPAP BC with different bacteria - GNR and Enterococcus Fup BC negative so far Sputum C/S normal preet BP ok No abdominal pain LFTs mildly elevated Antibiotics Ruth Marie Past Medical History Paroxysmal atrial fibrillation on chronic anticoagulation Obstructive sleep apnea on home CPAP Diabetes mellitus Hypertension Hyperlipidemia Stroke with residual left-sided hemiparesis COPD Past Surgical History Hernia repair Appendectomy Cholecystectomy Right hip replacement Allergies: Coded Allergies: *MDRO Multi-Drug Resistant Organism (Verified Adverse Reaction, Unknown, ) MRSA PCR Screen POSITIVE - 10/24/2016 MRSA (sputum)-10/24/16 Objective . Vital Signs Date Time Temp Pulse Resp B/P (MAP) Pulse Ox O2 Delivery O2 Flow Rate FiO2 02/26/17 10:00 82 02/26/17 09:50 98 40 02/26/17 08:00 40 02/26/17 08:00 76 02/26/17 08:00 98.4 76 18 156/67 (96) 96 02/26/17 06:00 82 02/26/17 04:17 98 40 02/26/17 04:00 40 02/26/17 04:00 81 02/26/17 04:00 98.5 92 16 133/92 (106) 97 02/26/17 02:00 68 02/26/17 00:00 98.5 85 16 146/65 (92) 97 02/26/17 00:00 85 02/26/17 00:00 40 02/25/17 23:55 98 40 02/25/17 22:00 69 02/25/17 20:37 98 40 02/25/17 20:00 98.4 71 16 121/58 (79) 98 02/25/17 20:00 40 02/25/17 20:00 67 02/25/17 18:00 82 02/25/17 16:00 98 02/25/17 16:00 40 02/25/17 16:00 99.1 98 15 132/61 (84) 95 02/25/17 15:08 100 40 02/25/17 14:00 81 02/25/17 12:00 40 02/25/17 12:00 78 02/25/17 12:00 99.1 78 15 114/58 (76) 98 02/26/17 02/26/17 02/27/17 15:00 23:00 07:00 Intake Total 250 ml Balance 250 ml IV Total 250 ml . Laboratory Tests Test 02/25/17 10:30 02/25/17 18:15 02/26/17 09:58 White Blood Count 19.0 TH/MM3 15.0 TH/MM3 Red Blood Count 2.74 MIL/MM3 3.70 MIL/MM3 Hemoglobin 6.7 GM/DL 8.4 GM/DL 9.4 GM/DL Hematocrit 21.6 % 26.5 % 29.8 % Mean Corpuscular Volume 78.8 FL 80.5 FL Mean Corpuscular Hemoglobin 24.4 PG 25.3 PG Mean Corpuscular Hemoglobin Concent 30.9 % 31.4 % Red Cell Distribution Width 18.9 % 18.4 % Platelet Count 337 TH/MM3 300 TH/MM3 Mean Platelet Volume 7.8 FL 8.3 FL Neutrophils (%) (Auto) 74.2 % 87.0 % Lymphocytes (%) (Auto) 21.0 % 12.1 % Monocytes (%) (Auto) 3.7 % 0.8 % Eosinophils (%) (Auto) 0.8 % 0.0 % Basophils (%) (Auto) 0.3 % 0.1 % Neutrophils # (Auto) 14.1 TH/MM3 13.1 TH/MM3 Lymphocytes # (Auto) 4.0 TH/MM3 1.8 TH/MM3 Monocytes # (Auto) 0.7 TH/MM3 0.1 TH/MM3 Eosinophils # (Auto) 0.1 TH/MM3 0.0 TH/MM3 Basophils # (Auto) 0.1 TH/MM3 0.0 TH/MM3 CBC Comment AUTO DIFF AUTO DIFF Differential Total Cells Counted 100 Neutrophils % (Manual) 82 % Band Neutrophils % 4 % Lymphocytes % 11 % Monocytes % 1 % Eosinophils % 1 % Neutrophils # (Manual) 16.5 TH/MM3 Myelocytes 1 % Differential Comment FINAL DIFF MANUAL AUTO DIFF CONFIRMED Platelet Estimate NORMAL NORMAL Platelet Morphology Comment NORMAL NORMAL Target Cells 1+ 1+ Stomatocytes 1+ Laboratory Tests Test 02/25/17 03:15 02/25/17 10:30 02/26/17 09:58 Creatinine 2.19 MG/DL 2.01 MG/DL 2.06 MG/DL Estimat Glomerular Filtration Rate 22 ML/MIN 24 ML/MIN 24 ML/MIN Blood Urea Nitrogen 97 MG/DL 87 MG/DL Random Glucose 157 MG/DL 313 MG/DL Total Protein 5.6 GM/DL Albumin 1.4 GM/DL Calcium Level 7.2 MG/DL 8.2 MG/DL Alkaline Phosphatase 301 U/L Aspartate Amino Transf (AST/SGOT) 45 U/L Alanine Aminotransferase (ALT/SGPT) 20 U/L Total Bilirubin 0.4 MG/DL Sodium Level 139 MEQ/L 141 MEQ/L Potassium Level 3.7 MEQ/L 3.8 MEQ/L Chloride Level 100 MEQ/L 101 MEQ/L Carbon Dioxide Level 31.3 MEQ/L 29.5 MEQ/L Anion Gap 8 MEQ/L 11 MEQ/L Protein Corrected Calcium 8.0 MG/DL Microbiology Date/Time Source Procedure Growth Status 02/25/17 03:43 Blood Peripheral Aerobic Blood Culture - Preliminary NO GROWTH IN 1 DAY Resulted 02/25/17 03:43 Blood Peripheral Anaerobic Blood Culture - Preliminary NO GROWTH IN 1 DAY Resulted 02/25/17 03:39 Blood Peripheral Aerobic Blood Culture - Preliminary NO GROWTH IN 1 DAY Resulted 02/25/17 03:39 Blood Peripheral Anaerobic Blood Culture - Preliminary NO GROWTH IN 1 DAY Resulted 02/23/17 14:35 Blood Peripheral Aerobic Blood Culture - Preliminary Pseudomonas Species Gram Negative Andrés Group D Enterococcus Resulted 02/23/17 14:35 Anaerobic Blood Culture - Preliminary Proteus Species Resulted 02/23/17 14:30 Blood Peripheral Aerobic Blood Culture - Preliminary Gram Negative Andrés Group D Enterococcus Resulted 02/23/17 14:30 Anaerobic Blood Culture - Preliminary Gram Negative Andrés Group D Enterococcus Resulted 02/24/17 18:00 Sputum Endotracheal Gram Stain - Final Resulted 02/24/17 18:00 Sputum Endotracheal Sputum Culture - Preliminary LIGHT GROWTH NORMAL RESPIRATORY PREET... Resulted 02/23/17 15:10 Urine Catheterized Urine Legionella Antigen - Final PRESUMPTIVE NEGATIVE FOR LEGIONELLA P... Complete 02/23/17 15:10 Urine Catheterized Urine Streptococcus pneumoniae Antigen (M - Final PRESUMPTIVE NEGATIVE FOR STREPTOCOCCU... Complete 02/23/17 15:10 Urine Catheterized Urine Urine Culture - Final Aurelia Glabrata Complete Imaging Last Impressions Chest X-Ray 02/24/17 0000 Signed Impressions: Service Date/Time: Friday, February 24, 2017 03:15 - CONCLUSION: 1. Bibasilar airspace disease actually appears slightly worse. There may be associated effusions. 2. Stable position of life support tubes including a right IJ central venous catheter with the tip tracking cephalad towards the head. Timothy Pascual MD Head CT 02/23/17 1400 Signed Impressions: Service Date/Time: Thursday, February 23, 2017 15:20 - CONCLUSION: Unremarkable study. Gregory Wells MD Physical Exam GENERAL: awake and responding, on the vent, not in respiratory distress. SKIN: Warm and dry. No generalized rash, no ecchymoses and no evidence of embolic lesions. HEAD: Atraumatic. Normocephalic. No temporal wasting, or tenderness. EYES: [place] conjunctiva. No petechia or hemorrhage. No scleral icterus. No injection or drainage. EARS, NOSE AND THROAT: Nose without bleeding or purulent nasal discharge. She is orally intubated. NECK: Trachea midline. Supple and not tender, no meningeal signs. LIJ TLC with no evidence of infection CARDIOVASCULAR: Regular rate and rhythm. No murmurs, rubs or gallops heard RESPIRATORY: Coarse breath sounds bilaterally, with some rhonchi on R, decreased on L. ABDOMEN: Soft, obese, nondistended, did some grimacing during abdominal palpation. Has midline ventral hernia. Bowel sounds present and normoactive. No guarding. No rebound. EXTREMITIES: No clubbing, or cyanosis. Has skin changes in both legs c/w chronic leg edema and venous stasis, decreasing edema. Has some scabs in L leg with no evidence of infection. NEUROLOGICAL: Awake and responding. No Babinski, no ankle clonus PSYCHIATRIC: Cooperative LINE: No evidence of infection : Cuellar cath in place with no evidence of infection Assessment & Plan Remarks IMPRESSION Polymicrobial sepsis, ?source, usually cases with polymicrobial are intraabdominal, but exam is unremarkable GNR sepsis due to PNA, possibly aspiration? Respiratory failure Known COPD, sleep apnea CKD Morbid obesity Mild elevation of LFTs Leukocytosis RECOMMENDATION Continue Meropenem while C/S preliminary - will adjust and deescalate once C/S finalized Continue Levaquin Give dose of Vanco, and check level in AM If stable, will need CT A/P Follow C/S Follow CBC Monitor progress Weaning per CCM Marlene Calderon MD Feb 26, 2017 12:02
[2017-02-26] MEDS ORDERED: PROPOFOL 200 MG/20 ML AMP IV PUSH ONE (15:23)
--- NOTE | 2017-02-26 15:24 | GIPROC ---
[facility] [address] [facility]. [facility] [place], [address] EGD PROCEDURE REPORT EXAM DATE: 02/26/2017 PATIENT NAME: Janis Mackey MR #: [id number] BIRTHDATE: 1945 ATTENDING: Bharati Nelson MD ORDER #: [id number] SUPERVISOR TELEPHONE INFORMATION: Nayeli Brady RN and Alessia Pa RN STATUS: inpatient INDICATIONS: The patient is a 72 yr old female here for an EGD due to hematemesis PROCEDURE PERFORMED: EGD w/ biopsy MEDICATIONS: None and Per Anesthesia. TOPICAL ANESTHETIC: none CONSENT: The patient understands the risks and benefits of the procedure and understands that these risks include, but are not limited to: sedation, allergic reaction, infection, perforation and/or bleeding. Alternative means of evaluation and treatment include, among others: physical exam, x-rays, and/or surgical intervention. The patient elects to proceed with this endoscopic procedure. medical equipment was checked for proper function. Hand hygiene and appropriate measures for infection prevention was taken. After the risks, benefits and alternatives of the procedure were thoroughly explained, Informed consent was verified, confirmed and timeout was successfully executed by the treatment team. The patient was anesthetized with topical anesthesia and the AlphaStripeax [id number] endoscope was introduced through the mouth and advanced to the second portion of the duodenum. Retroflexion was performed and was normal The gastroscope was then slowly withdrawn and removed. ESOPHAGUS: The esophagus was otherwise normal. STOMACH: Multiple small non-bleeding, linear, shallow and clean-based ulcers were found in the prepyloric region of the stomach and at the pylorus. Biopsies were taken at edge of the ulcers and at the center of the ulcers. There was a large amount of residual food seen in the gastric fundus, cardia, and gastric body. Due to the residual food, complete mucosal examination could not be performed. DUODENUM: The duodenal mucosa appeared normal in the bulb and second portion of the duodenum. ADVERSE EVENTS: There were no complications. IMPRESSIONS: 1. The esophagus was otherwise normal 2. Multiple small ulcers were found in the prepyloric region of the stomach and at the pylorus; biopsies were taken 3. Food residue in the gastric fundus, cardia, and gastric body 4. Normal duodenal mucosa in the bulb and second portion of the duodenum 5. Retroflexion was performed and was normal RECOMMENDATIONS: 1. Await biopsy results. Biopsy results will not be ready for 7-10 days. If you don't hear from us in two weeks, call our office for biopsy results. 2. Continue PPI PATIENT CONDITION: stable DISPOSITION: Observation REPEAT EXAM: NONE Bharati Nelson MD eSigned: Bharati Nelson MD 02/26/2017 3:23 PM cc: PATIENT NAME: Janis Mackey MR#: [id number]
[2017-02-26] MEDS ORDERED: NOREPINEPHRINE-DEXTROSE DRIP 250 ML IV PRN (15:30)
[2017-02-26] MEDS ORDERED: CHLORHEXIDINE 0.12% (ORAL KIT) 15 ML CUP MT SCH (20:00)
[2017-02-27] VITALS (17 sets, daily range): BP systolic 114–164; BP diastolic 60–83; PULSE 70–93; RESP 16–19; TEMP 98–98.5; O2SAT 94–99
[2017-02-27] MEDS: DEXAMETHASONE SOD PHOS 4 MG/ML VIAL IV PUSH SCH ×3 (00:10→22:16)
[2017-02-27] MEDS: RESP: ALBUTEROL 2.5 MG/IPRATROPIUM 0.5 MG NEB (SCH) INH ×4 (03:33→20:43)
[2017-02-27] MEDS: INSULIN ASPART SUPPLEMENTAL SCALE SQ SCH ×6 (03:52→21:00)
[2017-02-27] MEDS: CHLORHEXIDINE GLUCONATE 2 % 1 PACK (2 CLOTHS) TOP SCH (04:00)
[2017-02-27] MEDS: PANTOPRAZOLE SODIUM 40 MG VIAL IV SCH ×2 (05:18→16:40)
[2017-02-27] MEDS: MEROPENEM INJ 1,000 MG in SODIUM CHLORIDE 0.9% INJ 100 ML IV SCH (05:19)
[2017-02-27 05:32] LABS: AUTOMATED NEUTROPHIL # 15.6 TH/MM3 (1.8-7.7); BASOPHIL % 0.1 % (0.0-2.0); HEMATOCRIT 32.2 % (35.0-46.0); LYMPH % 12.2 % (9.0-44.0); LYMPHOCYTE # 2.2 TH/MM3 (1.0-4.8); MEAN CORPUSCULAR HEMOGLOBIN 25.6 PG (27.0-34.0); MEAN CORPUSCULAR HGB CONC 31.1 % (32.0-36.0); MONO % 2.4 % (0.0-8.0); NEUT % 85.3 % (16.0-70.0); PLATELET COUNT 291 TH/MM3 (150-450); RED BLOOD COUNT 3.93 MIL/MM3 (4.00-5.30); RED CELL DISTRIBUTION WIDTH 19.2 % (11.6-17.2); WHITE BLOOD COUNT 18.3 TH/MM3 (4.0-11.0)
[2017-02-27 05:35] LABS: HEMO FLAGS AUTO DIFF
[2017-02-27 06:00] LABS: MAGNESIUM 2.2 MG/DL (1.5-2.5); POTASSIUM 3.7 MEQ/L (3.5-5.1)
[2017-02-27] MEDS: CHLORHEXIDINE 0.12% (ORAL KIT) 15 ML CUP MT SCH ×3 (08:00→20:00)
[2017-02-27 08:11] LABS: SCAN/DIFF AUTO DIFF CONFIRMED
[2017-02-27] MEDS: SODIUM CHLORIDE 0.9% FLUSH 10 ML FLUSH IV FLUSH SCH ×2 (08:46→22:15)
[2017-02-27] MEDS: DOCUSATE SODIUM 50 MG/SENNA 8.6 MG TAB PO SCH ×2 (08:46→22:16)
--- NOTE | 2017-02-27 10:28 | HHI.CCPN ---
Subjective Remarks/Hospital Course 72-year-old female with past medical history of hypertension, IDDM , obesity, Sleep apnea on home C Pap, hyperlipidemia, prior stroke with residual left side weakness, COPD who presents to [facility] with history of altered mental status x2 days. Her son states yesterday she slept most of the day yesterday; did not eat all day.. She had stayed home with her ankit ce all day but when her son came home from work he was able to arouse her and gave her some ice cream and Lantus 37 units. EVAC administered Narcan without response. Upon arrival ED physician states she was moaning to noxious stimuli and required intubation for airway protection. Glucose was 44 and she was given amp of D50. She was afebrile but findings were consistent with severe sepsis including white blood cell count 22, chest x-ray with left lower lobe and right perihilar opacities. UA had trace LE and [address] brain showed no acute abnormality. She was given azithromycin, Zosyn in the emergency department. Blood cultures and urine cultures have been obtained. She was started on propofol initially for sedation but became hypotensive so was given 2 L normal saline bolus and started on a Versed drip. She has been recently admitted 10/24/16 through 11/07. She had been sent to [place] emergency Department for atrial fibrillation with RVR rate in the 120s and then subsequently was discovered to have hypercapnic respiratory failure. She had also been treated for MRSA pneumonia. Unable to obtain further review of systems from patient because she is intubated. 02/24 Remains intubated and sedated. Did not tolerate CPAP. Blood culture 10/09 + GNR...later resulted Proteus. Repeat blood culture sent and blood culture reordered. 02/25 Off levophed. Sedation vacation this morning and following commands with all extremities. Was biting on tube initially so ordered precedex but later she calmed down and was able to transition to CPAP without precedex or other sedation..Tolerated CPAP / with RSBI 40s and no desaturation but low tidal volumes ~250 and ABG 7.30 /PaCO2 62/ PaO2 107/bicarb 30. No cuff leak. Plan eventual extubation to Bipap but will need more time. Starting decadron, diamox. 02/26: Afebrile. Plan for EGD this AM and possible extubation post procedure. Patient is awake and alert and following commands. Stable overnight. Transfused 2 units PRBCs. Subjective: 02/27: Self extubated overnight. Afebrile. Voice/phonating well. Requesting diet. EGD revealed multiple ulcers throughout a gastric prepyloric region biopsy. Objective Vital Signs Date Time Temp Pulse Resp B/P (MAP) Pulse Ox O2 Delivery O2 Flow Rate FiO2 02/27/17 08:00 98.1 90 18 114/83 (93) 97 02/27/17 07:21 Nasal Cannula 2.00 02/27/17 00:00 45 Intake and Output 02/27/17 02/27/17 02/28/17 08:00 16:00 00:00 Intake Total 100 ml Output Total 300 ml Balance -200 ml Result Diagram: 02/27/17 0357 02/27/17 0357 Other Results Microbiology Date/Time Source Procedure Growth Status 02/25/17 03:43 Blood Peripheral Aerobic Blood Culture - Preliminary NO GROWTH IN 1 DAY Resulted 02/25/17 03:43 Blood Peripheral Anaerobic Blood Culture - Preliminary NO GROWTH IN 1 DAY Resulted 02/24/17 18:00 Sputum Endotracheal Gram Stain - Final Complete 02/24/17 18:00 Sputum Endotracheal Sputum Culture - Final LIGHT GROWTH NORMAL RESPIRATORY DAMASO Complete 02/23/17 15:10 Urine Catheterized Urine Legionella Antigen - Final PRESUMPTIVE NEGATIVE FOR LEGIONELLA P... Complete 02/23/17 15:10 Urine Catheterized Urine Streptococcus pneumoniae Antigen (M - Final PRESUMPTIVE NEGATIVE FOR STREPTOCOCCU... Complete Imaging Last Impressions Liver Ultrasound 02/25/17 0000 Signed Impressions: Service Date/Time: Saturday, February 25, 2017 08:05 - CONCLUSION: 1. Echogenic and heterogeneous liver which can be seen with hepatocellular dysfunction. 2. Right kidney slightly small in size. 3. Cholecystectomy. Obinna Lobo MD Chest X-Ray 02/24/17 0000 Signed Impressions: Service Date/Time: Friday, February 24, 2017 10:55 - CONCLUSION: Abnormal right jugular line. Adequate placement of left jugular line.. Obinna Lobo MD Head CT 02/23/17 1400 Signed Impressions: Service Date/Time: Thursday, February 23, 2017 15:20 - CONCLUSION: Unremarkable study. KSofiya Wells MD Objective Remarks GENERAL: 72 -year-old female, currently on room air distress SKIN: Warm and dry. There is an estimated 5 cm stage II decubitus ulcer on left buttocks and estimated 1.5 cm stage II decubitus ulcer on right buttocks ( present on admission) HEAD: Atraumatic. Normocephalic. EYES: Pupils are 2 mm bilaterally and reactive. No scleral icterus. No injection or drainage. ENT: No nasal bleeding or discharge. Mucous membranes are moderately moist and pink. NECK: Trachea midline. Obese neck, unable to appreciate JVD. Left IJ is clean dry and intact. Prior right IJ site without bleeding or erythema CARDIOVASCULAR: RRR. S1-S2, no S4. Without murmur RESPIRATORY: Diminished breath sounds throughout due to body habitus. Few scattered coarse crackles appreciated anteriorly GASTROINTESTINAL: Abdomen obese, soft, nontender. Hypoactive bowel sounds are appreciated. : Cuellar in place with yellow urine output. MUSCULOSKELETAL: Extremities with chronic venous stasis bilateral lower extremities.. 1+ pitting edema bilateral lower extremities. NEUROLOGICAL: Cranial nerves II through XII grossly intact. Strength 4-5 left upper and lower extremity. 5 out of 5 right upper and lower extremity Normal sensation light touch and pinprick. A/P Assessment and Plan NEURO/PSYCH: Acute toxic metabolic encephalopathy History of vascular access with residual left weakness Generalized Deconditioning Chronic opiate use CT brain 02/23/17no acute abnormality Patient is on hydrocodone/acetaminophen 5/325 one tablet every 4 hours when necessary at home RESP: Acute hypoxemic respiratory failure COPD Obstructive sleep apnea - CPAP at home. Pneumonia Nasal cannula to maintain saturations greater than equal to 92% Incentive spirometry while awake Albuterol/ipratropium aerosols every 6 hours. Albuterol aerosols every 2 hours as needed Decadron 4 mg IV every 6 hours be tapered off today And no longer on CPAP. Chest x-ray is bilateral upper lobe which is likely infectious etiology CV: History of paroxysmal atrial fibrillation on chronic anticoagulation. Currently in sinus rhythm Mild troponin elevation may be due secondary to sepsis and renal failure. Chronic diastolic heart failure Hypertension Severe sepsis 2-D echo 10/24/16ejection fraction 55%. Normal wall motion with no regional wall motion abnormalities. Positive LVH. 2-D echo 02/25/17ejection impression 55-60%. No regional wall motion abnormalities. Serial troponins with mild elevation ~ 0.12 likely secondary to sepsis. Patient is on diltiazem 60 mg by mouth every 8 hours at home Patient is on furosemide 40 mg by mouth daily at home. Resume today GI: Chronic protein energy malnutrition Status post cholecystectomy Pantoprazole 40 mg IV every 12 hours Docusate sodium/senna 1 tablet twice a day for bowel regimen Speech therapy to swallow evaluation regular EGD 02/26 revealed multiple PEEP pyloric gastric erosions as ulcerations with biopsies performed. Liver u/s - liver heterogeneous/echogenetic without ductal dilatation. Status post cholecystectomy. FEN/RENAL: Acute kidney injury overlying chronic kidney disease stage IIIb Cuellar in place. Monitor intake and output. Monitor electrolyte. Replace electrolytes as clinically indicated. She might be stage IV this point ID: Polymicrobial bacteremia - Pseudomonas, gram-negative grace,'s group D enterococcus and Proteus Funguria Pertinent cultures 02/23 - blood cultures 2 - Pseudomonas, gram-negative grace, group D enterococcus , Proteus 02/23 - urine - yeast NOS 02/24 - sputum/urine Legionella and pneumococcal antigens no growth/negative 02/25 - blood cultures 2 -no growth Day 5 levofloxacin, vancomycin. Day #4 meropenem Infectious disease following 2-D echocardiogram revealed no vegetations on heart valves HEME/ONC: Chronic Apixaban use Acute anemia overlying chronic iron deficiency anemia. Leukocytosis Transfused 2 unit packed red cells since admission Follow-up CBC daily. Monitor trends ENDO: IDDM Hypoglycemia - resolved Currently on sliding scale insulin with Novulin R with Accu-Cheks every 4 hours to maintain euglycemia/medium regimen. Switch before meals/at bedtime with detemir 8 units twice a day to be initiated Patient is on insulin glargine 37 units at home. MSK Elevated BMI Wt loss encouraged PROPH: Hold pharmacologic DVT prophylaxis due to anemia. SCDs for DVT prophylaxis. Pantoprazole 40 mg IV every 12 hours for stress ulcer prophylaxis ACCESS: L IJ CVL placed 02/24 #4. Right IJ inserted 02/23 removed 02/24. Level II follow-up Bernardo Sheikh MD Feb 27, 2017 10:28
--- NOTE | 2017-02-27 10:55 | HHI.IDPN ---
Subjective Subjective Remarks Patient is a 72-year-old female brought into the hospital after she was found poorly responsive. Patient has known COPD, sleep apnea, and he uses a home CPAP machine. Apparently the patient was sleeping most of the day one day prior to admission, and he did not eat much that day. Her niece was apparently with her and when the son came to see her she was quite lethargic although she did wake up. However she did not really improve much, and even back was called , and they gave her Narcan without any response. In the emergency room she continued to be obtunded, and was moaning a lot. She ended up getting intubated for airway protection. Her glucose was 44 and she was given an amp of 250. There was no fever or chills prior to admission. Her chest x-ray showed left lower lobe infiltrate with some right perihilar opacities. She was admitted with severe sepsis, and her white count was 22,000, and she was hypotensive requiring pressors. Since admission highest temperature being 99. Her urinalysis was fairly unremarkable. 2 blood cultures were done on admission , and they are now reported as growing gram-negative grace. Notes reviewed Self extubated Afebrile BC with different bacteria - GNR and Enterococcus Has moist cough, not bringing up phlegm No abdominal pain NO N/V Not SOB, on nasal O2 WBC rising Repeat BC negative Antibiotics Merem Levaquin Vanco dose 02/26 Past Medical History Paroxysmal atrial fibrillation on chronic anticoagulation Obstructive sleep apnea on home CPAP Diabetes mellitus Hypertension Hyperlipidemia Stroke with residual left-sided hemiparesis COPD Past Surgical History Hernia repair Appendectomy Cholecystectomy Right hip replacement Allergies: Coded Allergies: *MDRO Multi-Drug Resistant Organism (Verified Adverse Reaction, Unknown, ) MRSA PCR Screen POSITIVE - 10/24/2016 MRSA (sputum)-10/24/16 Objective . Vital Signs Date Time Temp Pulse Resp B/P (MAP) Pulse Ox O2 Delivery O2 Flow Rate FiO2 02/27/17 08:00 98.1 90 18 114/83 (93) 97 02/27/17 08:00 90 02/27/17 07:21 97 Nasal Cannula 2.00 02/27/17 06:00 78 02/27/17 04:38 99 Nasal Cannula 2.00 02/27/17 04:00 98.5 81 19 164/72 (102) 94 02/27/17 04:00 81 02/27/17 02:00 70 02/27/17 01:17 98 Nasal Cannula 4.00 02/27/17 01:05 98 Nasal Cannula 4 02/27/17 00:00 45 02/27/17 00:00 98.1 70 16 152/68 (96) 97 02/27/17 00:00 70 02/26/17 23:16 99 45 02/26/17 22:00 86 02/26/17 20:00 87 02/26/17 20:00 98.5 87 18 140/63 (88) 96 02/26/17 20:00 45 02/26/17 19:50 95 45 02/26/17 18:00 92 02/26/17 17:50 45 02/26/17 16:00 68 02/26/17 16:00 40 02/26/17 16:00 97.8 68 16 144/66 (92) 99 02/26/17 14:00 70 02/26/17 12:23 98 40 02/26/17 12:00 40 02/26/17 12:00 74 02/26/17 12:00 98.0 74 16 155/65 (95) 97 . Laboratory Tests Test 02/25/17 18:15 02/26/17 09:58 02/27/17 03:57 Hemoglobin 8.4 GM/DL 9.4 GM/DL 10.0 GM/DL Hematocrit 26.5 % 29.8 % 32.2 % White Blood Count 15.0 TH/MM3 18.3 TH/MM3 Red Blood Count 3.70 MIL/MM3 3.93 MIL/MM3 Mean Corpuscular Volume 80.5 FL 82.0 FL Mean Corpuscular Hemoglobin 25.3 PG 25.6 PG Mean Corpuscular Hemoglobin Concent 31.4 % 31.1 % Red Cell Distribution Width 18.4 % 19.2 % Platelet Count 300 TH/MM3 291 TH/MM3 Mean Platelet Volume 8.3 FL 8.7 FL Neutrophils (%) (Auto) 87.0 % 85.3 % Lymphocytes (%) (Auto) 12.1 % 12.2 % Monocytes (%) (Auto) 0.8 % 2.4 % Eosinophils (%) (Auto) 0.0 % 0.0 % Basophils (%) (Auto) 0.1 % 0.1 % Neutrophils # (Auto) 13.1 TH/MM3 15.6 TH/MM3 Lymphocytes # (Auto) 1.8 TH/MM3 2.2 TH/MM3 Monocytes # (Auto) 0.1 TH/MM3 0.4 TH/MM3 Eosinophils # (Auto) 0.0 TH/MM3 0.0 TH/MM3 Basophils # (Auto) 0.0 TH/MM3 0.0 TH/MM3 CBC Comment AUTO DIFF AUTO DIFF Differential Comment AUTO DIFF CONFIRMED AUTO DIFF CONFIRMED Platelet Estimate NORMAL Platelet Morphology Comment NORMAL Target Cells 1+ Stomatocytes 1+ Laboratory Tests Test 02/26/17 09:58 02/27/17 03:57 Blood Urea Nitrogen 87 MG/DL 82 MG/DL Creatinine 2.06 MG/DL 2.09 MG/DL Random Glucose 313 MG/DL 184 MG/DL Calcium Level 8.2 MG/DL 8.5 MG/DL Sodium Level 141 MEQ/L 143 MEQ/L Potassium Level 3.8 MEQ/L 3.7 MEQ/L Chloride Level 101 MEQ/L 103 MEQ/L Carbon Dioxide Level 29.5 MEQ/L 30.0 MEQ/L Anion Gap 11 MEQ/L 10 MEQ/L Estimat Glomerular Filtration Rate 24 ML/MIN 23 ML/MIN Phosphorus Level 4.4 MG/DL Magnesium Level 2.2 MG/DL Microbiology Date/Time Source Procedure Growth Status 02/25/17 03:43 Blood Peripheral Aerobic Blood Culture - Preliminary NO GROWTH IN 1 DAY Resulted 02/25/17 03:43 Blood Peripheral Anaerobic Blood Culture - Preliminary NO GROWTH IN 1 DAY Resulted 02/25/17 03:39 Blood Peripheral Aerobic Blood Culture - Preliminary NO GROWTH IN 1 DAY Resulted 02/25/17 03:39 Blood Peripheral Anaerobic Blood Culture - Preliminary NO GROWTH IN 1 DAY Resulted 02/24/17 18:00 Sputum Endotracheal Gram Stain - Final Complete 02/24/17 18:00 Sputum Endotracheal Sputum Culture - Final LIGHT GROWTH NORMAL RESPIRATORY DAMASO Complete Imaging Last Impressions Chest X-Ray 02/24/17 0000 Signed Impressions: Service Date/Time: Friday, February 24, 2017 03:15 - CONCLUSION: 1. Bibasilar airspace disease actually appears slightly worse. There may be associated effusions. 2. Stable position of life support tubes including a right IJ central venous catheter with the tip tracking cephalad towards the head. Timothy Pascual MD Head CT 02/23/17 1400 Signed Impressions: Service Date/Time: Thursday, February 23, 2017 15:20 - CONCLUSION: Unremarkable study. Gregory Wells MD Physical Exam GENERAL: awake and alert, NAD SKIN: Warm and dry. No generalized rash HEAD: Atraumatic. Normocephalic. No temporal wasting, or tenderness. EYES: [place] conjunctiva. No petechia or hemorrhage. No scleral icterus. No injection or drainage. EARS, NOSE AND THROAT: Nose without bleeding or purulent nasal discharge. She is orally intubated. NECK: Trachea midline. Supple and not tender, no meningeal signs. LIJ TLC with no evidence of infection CARDIOVASCULAR: Regular rate and rhythm. No murmurs, rubs or gallops heard RESPIRATORY: Coarse breath sounds bilaterally, decreased at bases ABDOMEN: Soft, obese, nondistended, not tender. Has midline ventral hernia. Bowel sounds present and normoactive. No guarding. No rebound. EXTREMITIES: No clubbing, or cyanosis. Has skin changes in both legs c/w chronic leg edema and venous stasis, decreasing edema. Has some scabs in L leg with no evidence of infection. NEUROLOGICAL: Non-focal PSYCHIATRIC: Cooperative LINE: No evidence of infection : Cuellar cath in place with no evidence of infection Assessment & Plan Remarks IMPRESSION Polymicrobial sepsis, ?source, usually cases with polymicrobial are intraabdominal, but exam is unremarkable GNR sepsis due to PNA, possibly aspiration? Respiratory failure Known COPD, sleep apnea CKD Morbid obesity Mild elevation of LFTs Leukocytosis RECOMMENDATION Change Meropenem to Zosyn Continue Levaquin Give dose of Vanco today, and check level in AM CT A/P Follow C/S Follow CBC Monitor progress Marlene Calderon MD Feb 27, 2017 10:55
[2017-02-27] MEDS: PIPERACIL-TAZO 3.375 GM PREMIX 50 ML IV SCH ×3 (11:29→22:20)
[2017-02-27] MEDS ORDERED: DIATRIZOATE MEGLUM/DIATRIZOATE SOD 9 ML CUP PO ONE (11:30)
--- NOTE | 2017-02-27 11:36 | HHI.GIFU ---
Subjective Remarks Pt resting in bed. NO complaints at this time. (Reta Kaminski) Objective Vitals I&O Vital Signs Date Time Temp Pulse Resp B/P (MAP) Pulse Ox O2 Delivery O2 Flow Rate FiO2 02/27/17 10:00 87 02/27/17 08:00 98.1 90 18 114/83 (93) 97 02/27/17 08:00 90 02/27/17 07:21 97 Nasal Cannula 2.00 02/27/17 06:00 78 02/27/17 04:38 99 Nasal Cannula 2.00 02/27/17 04:00 98.5 81 19 164/72 (102) 94 02/27/17 04:00 81 02/27/17 02:00 70 02/27/17 01:17 98 Nasal Cannula 4.00 02/27/17 01:05 98 Nasal Cannula 4 02/27/17 00:00 45 02/27/17 00:00 98.1 70 16 152/68 (96) 97 02/27/17 00:00 70 02/26/17 23:16 99 45 02/26/17 22:00 86 02/26/17 20:00 87 02/26/17 20:00 98.5 87 18 140/63 (88) 96 02/26/17 20:00 45 02/26/17 19:50 95 45 02/26/17 18:00 92 02/26/17 17:50 45 02/26/17 16:00 68 02/26/17 16:00 40 02/26/17 16:00 97.8 68 16 144/66 (92) 99 02/26/17 14:00 70 02/26/17 12:23 98 40 02/26/17 12:00 40 02/26/17 12:00 74 02/26/17 12:00 98.0 74 16 155/65 (95) 97 I/O 02/26/17 02/26/17 02/26/17 02/27/17 02/27/17 02/27/17 07:00 15:00 23:00 07:00 15:00 23:00 Intake Total 872 ml 250 ml 563 ml 100 ml Output Total 1800 ml 1700 ml 300 ml Balance -928 ml 250 ml -1137 ml -200 ml Intake Oral 0 ml 0 ml 0 ml IV Total 276 ml 250 ml 83 ml 100 ml Tube Feeding 536 ml 300 ml Tube Irrigant 180 ml Other 60 ml Output Urine Total 1800 ml 1700 ml 300 ml Gastric Drainage Total 0 ml # Bowel Movements 2 1 0 Laboratory Laboratory Tests Test 02/27/17 03:57 White Blood Count 18.3 Red Blood Count 3.93 Hemoglobin 10.0 Hematocrit 32.2 Mean Corpuscular Volume 82.0 Mean Corpuscular Hemoglobin 25.6 Mean Corpuscular Hemoglobin Concent 31.1 Red Cell Distribution Width 19.2 Platelet Count 291 Mean Platelet Volume 8.7 Neutrophils (%) (Auto) 85.3 Lymphocytes (%) (Auto) 12.2 Monocytes (%) (Auto) 2.4 Eosinophils (%) (Auto) 0.0 Basophils (%) (Auto) 0.1 Neutrophils # (Auto) 15.6 Lymphocytes # (Auto) 2.2 Monocytes # (Auto) 0.4 Eosinophils # (Auto) 0.0 Basophils # (Auto) 0.0 CBC Comment AUTO DIFF Differential Comment AUTO DIFF CONFIRMED Blood Urea Nitrogen 82 Creatinine 2.09 Random Glucose 184 Calcium Level 8.5 Phosphorus Level 4.4 Magnesium Level 2.2 Sodium Level 143 Potassium Level 3.7 Chloride Level 103 Carbon Dioxide Level 30.0 Anion Gap 10 Estimat Glomerular Filtration Rate 23 Random Vancomycin Level 17.9 Date/Time Source Procedure Growth Status 02/25/17 03:43 Blood Peripheral Aerobic Blood Culture - Preliminary NO GROWTH IN 2 DAYS Resulted 02/25/17 03:43 Blood Peripheral Anaerobic Blood Culture - Preliminary NO GROWTH IN 2 DAYS Resulted 02/24/17 18:00 Sputum Endotracheal Gram Stain - Final Complete 02/24/17 18:00 Sputum Endotracheal Sputum Culture - Final LIGHT GROWTH NORMAL RESPIRATORY DAMASO Complete 02/23/17 15:10 Urine Catheterized Urine Legionella Antigen - Final PRESUMPTIVE NEGATIVE FOR LEGIONELLA P... Complete 02/23/17 15:10 Urine Catheterized Urine Streptococcus pneumoniae Antigen (M - Final PRESUMPTIVE NEGATIVE FOR STREPTOCOCCU... Complete Physical Exam HEENT: PERRL; normocephalic; atraumatic; no jaundice. CHEST: diminished CARDIAC: RRR ABDOMEN: Soft, nondistended, nontender; no hepatosplenomegaly; bowel sounds are present in all four quadrants. EXTREMITIES: No clubbing, cyanosis, + edema & discoloration BLE SKIN: no rash; no jaundice. [employer]ING [employer]: lethargic (Yamilex,Reta S CLIN NURSE) Assessment and Plan Plan ASSESSMENT: - Anemia with hemoccult (+) stool. Hx of PUD. (+) Eliquis use at home. Pt nods "yes" when asked if she has had any n/v, but denies abdominal pain. H/H 6.7/21.6. admission. S/P 3 units PRBC. Protonix with BID dosing. s/p EGD found mult small ulcers, food residue. - Sepsis with leukocytosis/bacteremia/UTI/PNA. Urine cx with yeast- ID following Blood cultures with PSAE, GNR, Gr D Enterococcus, proteus species. zosyn Levaquin. - Acute respiratory failure with PNA, COPD, LAXMI. Vent per CCM, Nebs,zosyn, Levaquin. - Elevated troponin, CHF per attending. Essentially the same x 3. - HIRAM, Creat 2.09. GFR 23. IVF. - Hx PAfib, on chronic anticoagulation at home. Eliquis at home. On hold. - DM per attending. PLAN: - DANIELLE - await bx - cont protonix - Monitor HH - Transfuse as necessary - Supportive care - Pt seen and examined by Dr. Nelson and myself and this note is written on his behalf (Reta Kaminski) Physician Comments Seen and examined, pathology results pending . Continue current treatment plan for now. (Bharati Nelson MD) Reta Kaminski Feb 27, 2017 11:36 Bharati Nelson MD Feb 27, 2017 12:25
[2017-02-27] MEDS ORDERED: VANCOMYCIN INJ 1,500 MG in SODIUM CHLORID 0.9% 500 ML INJ 500 ML IV ONE (15:00)
[2017-02-27] MEDS ORDERED: RESP: ALBUTEROL 2.5 MG/IPRATROPIUM 0.5 MG NEB (SCH) INH ×2 (16:00)
--- NOTE | 2017-02-27 16:00 | RADRPT ---
EXAM DATE/TIME: 02/27/2017 15:24 [facility] COMPARISON: US KIDNEY/RENAL/BLADDER, October 25, 2016, 10:11. INDICATIONS : Polymicrobial sepsis, possible abscess. ORAL CONTRAST: Prescribed oral contrast ingested. RADIATION DOSE: 17.01 CTDIvol (mGy) ; Patient body habitus MEDICAL HISTORY : Hypertension. Diabetes mellitus type 2. Intestinal hernia. SURGICAL HISTORY : Appendectomy. Cholecystectomy. ENCOUNTER: Initial ACUITY: 1 day PAIN SCALE: 5/10 LOCATION: Bilateral lower quadrant TECHNIQUE: Volumetric scanning of the abdomen and pelvis was performed. Using automated exposure control and ad justment of the mA and/or kV according to patient size, radiation dose was kept as low as reasonably achievable to obtain optimal diagnostic quality images. DICOM format image data is available electro nically for review and comparison. FINDINGS: There is consolidation at both lung bases and small effusions. Coronary calcification is noted. Liver , spleen, pancreas, adrenals unremarkable. Cholecystectomy clips are noted. Left kidney unremarkable. There is a cyst at the lower pole of the right kidney again seen measuring 4.5 cm. Atherosclerotic c alcification of the aorta and iliac vessels are noted. Cuellar catheter in urinary bladder. Uterus and adnexa are unremarkable. A few scattered colonic diverticuli are present without diverticulitis or ob struction. There is no adenopathy. No evidence for abscess. Mild body wall edema. Degenerative change s of the spine are noted. We'll right total hip arthroplasty. CONCLUSION: 1. No evidence for abscess. Duran Mann MD on February 27, 2017 at 15:51 Board Certified Radiologist. This report was verified electronically.
[2017-02-27] MEDS: LEVOFLOXACIN 750 MG PREMIX INJ 150 ML IV SCH (16:40)
[2017-02-27] MEDS ORDERED: PHARMACY ORDERED LAB ONE (17:45)
[2017-02-27] MEDS: INSULIN DETEMIR 100 UNITS/ML VIAL SQ SCH (21:00)
[2017-02-28] VITALS (13 sets, daily range): BP systolic 128–169; BP diastolic 59–85; PULSE 69–93; RESP 16–20; TEMP 97.7–98.1; O2SAT 95–98
[2017-02-28] MEDS: INSULIN ASPART SUPPLEMENTAL SCALE SQ SCH ×5 (03:00→19:44)
[2017-02-28] MEDS: PANTOPRAZOLE SODIUM 40 MG VIAL IV SCH ×2 (04:00→16:05)
[2017-02-28] MEDS: PIPERACIL-TAZO 3.375 GM PREMIX 50 ML IV SCH ×4 (04:00→23:30)
[2017-02-28] MEDS: CHLORHEXIDINE GLUCONATE 2 % 1 PACK (2 CLOTHS) TOP SCH (04:00)
[2017-02-28] MEDS: RESP: ALBUTEROL 2.5 MG/IPRATROPIUM 0.5 MG NEB (SCH) INH ×4 (04:17→20:15)
[2017-02-28 04:27] LABS: AUTOMATED NEUTROPHIL # 10.9 TH/MM3 (1.8-7.7); BASOPHIL % 0.1 % (0.0-2.0); HEMATOCRIT 30.1 % (35.0-46.0); LYMPHOCYTE # 2.2 TH/MM3 (1.0-4.8); MEAN CELL VOLUME 83.1 FL (80.0-100.0); MEAN CORPUSCULAR HGB CONC 30.1 % (32.0-36.0); MONO % 4.7 % (0.0-8.0); NEUT % 79.2 % (16.0-70.0); PLATELET COUNT 250 TH/MM3 (150-450); RED BLOOD COUNT 3.63 MIL/MM3 (4.00-5.30); RED CELL DISTRIBUTION WIDTH 19.1 % (11.6-17.2); WHITE BLOOD COUNT 13.8 TH/MM3 (4.0-11.0)
[2017-02-28 04:28] LABS: HEMO FLAGS AUTO DIFF
[2017-02-28 04:57] LABS: ALKALINE PHOSPHATASE 253 U/L (45-117); ALT (GPT) 19 U/L (10-53); ANION GAP 6 MEQ/L (5-15); AST (GOT) 19 U/L (15-37); BICARBONATE 33.1 MEQ/L (21.0-32.0); BLOOD UREA NITROGEN 77 MG/DL (7-18); CHLORIDE 103 MEQ/L (98-107); GLOMERULAR FILTRATION RATE 24 ML/MIN (>89); MAGNESIUM 2.2 MG/DL (1.5-2.5); POTASSIUM 3.9 MEQ/L (3.5-5.1); SODIUM (NA) 142 MEQ/L (136-145); TOTAL BILIRUBIN ADULT 0.4 MG/DL (0.2-1.0)
[2017-02-28 05:55] LABS: BANDS 1 % (0-6); METAMYELOCYTES 3 % (0-1); MYELOCYTES 1 % (0-0); NEUTROPHIL # MANUAL DIFF 12.1 TH/MM3 (1.8-7.7); POLYS (SEG NEUTROPHILS) 83 % (16-70); SCAN/DIFF FINAL DIFF MANUAL; WBC DIFF SAMPLE 100
[2017-02-28 05:56] LABS: PLATELET ESTIMATE SMEAR NORMAL (NORMAL); PLATELET MORPHOLOGY NORMAL (NORMAL)
[2017-02-28 05:57] LABS: STOMATOCYTES 1+ (NORMAL)
[2017-02-28 05:58] LABS: POLYCHROMASIA 2.2 % (0.0-1.9)
--- NOTE | 2017-02-28 08:36 | HHI.CCPN ---
Subjective Remarks/Hospital Course 72-year-old female with past medical history of hypertension, IDDM , obesity, Sleep apnea on home C Pap, hyperlipidemia, prior stroke with residual left side weakness, COPD who presents to [facility] with history of altered mental status x2 days. Her son states yesterday she slept most of the day yesterday; did not eat all day.. She had stayed home with her ankit ce all day but when her son came home from work he was able to arouse her and gave her some ice cream and Lantus 37 units. EVAC administered Narcan without response. Upon arrival ED physician states she was moaning to noxious stimuli and required intubation for airway protection. Glucose was 44 and she was given amp of D50. She was afebrile but findings were consistent with severe sepsis including white blood cell count 22, chest x-ray with left lower lobe and right perihilar opacities. UA had trace LE and [address] brain showed no acute abnormality. She was given azithromycin, Zosyn in the emergency department. Blood cultures and urine cultures have been obtained. She was started on propofol initially for sedation but became hypotensive so was given 2 L normal saline bolus and started on a Versed drip. She has been recently admitted 10/24/16 through 11/07. She had been sent to [place] emergency Department for atrial fibrillation with RVR rate in the 120s and then subsequently was discovered to have hypercapnic respiratory failure. She had also been treated for MRSA pneumonia. Unable to obtain further review of systems from patient because she is intubated. 02/24 Remains intubated and sedated. Did not tolerate CPAP. Blood culture 10/09 + GNR...later resulted Proteus. Repeat blood culture sent and blood culture reordered. 02/25 Off levophed. Sedation vacation this morning and following commands with all extremities. Was biting on tube initially so ordered precedex but later she calmed down and was able to transition to CPAP without precedex or other sedation..Tolerated CPAP / with RSBI 40s and no desaturation but low tidal volumes ~250 and ABG 7.30 /PaCO2 62/ PaO2 107/bicarb 30. No cuff leak. Plan eventual extubation to Bipap but will need more time. Starting decadron, diamox. 02/26: Afebrile. Plan for EGD this AM and possible extubation post procedure. Patient is awake and alert and following commands. Stable overnight. Transfused 2 units PRBCs. 02/27: Self extubated overnight. Afebrile. Voice/phonating well. Requesting diet. EGD revealed multiple ulcers throughout a gastric prepyloric region biopsy. Subjective: 02/28: Afebrile. CT abdomen/pelvis yesterday sealed no signs of abscess/ clinical infection. Patient is tolerating diet adequately. Metabolic blood sugars reasonably controlled. She states she does not use CPAP at night. Objective Vital Signs Date Time Temp Pulse Resp B/P (MAP) Pulse Ox O2 Delivery O2 Flow Rate FiO2 02/28/17 08:33 96 Nasal Cannula 1.00 02/28/17 06:00 77 02/28/17 04:00 98.0 16 130/65 (86) 02/27/17 00:00 45 Intake and Output 02/28/17 02/28/17 03/01/17 08:00 16:00 00:00 Intake Total 170 ml Output Total 450 ml Balance -280 ml Result Diagram: 02/28/17 0325 02/28/17 0325 Other Results Microbiology Date/Time Source Procedure Growth Status 02/25/17 03:43 Blood Peripheral Aerobic Blood Culture - Preliminary NO GROWTH IN 2 DAYS Resulted 02/25/17 03:43 Blood Peripheral Anaerobic Blood Culture - Preliminary NO GROWTH IN 2 DAYS Resulted 02/24/17 18:00 Sputum Endotracheal Gram Stain - Final Complete 02/24/17 18:00 Sputum Endotracheal Sputum Culture - Final LIGHT GROWTH NORMAL RESPIRATORY DAMASO Complete 02/23/17 15:10 Urine Catheterized Urine Legionella Antigen - Final PRESUMPTIVE NEGATIVE FOR LEGIONELLA P... Complete 02/23/17 15:10 Urine Catheterized Urine Streptococcus pneumoniae Antigen (M - Final PRESUMPTIVE NEGATIVE FOR STREPTOCOCCU... Complete Imaging Last Impressions Abdomen/Pelvis CT 02/27/17 0000 Signed Impressions: Service Date/Time: Monday, February 27, 2017 15:24 - CONCLUSION: 1. No evidence for abscess. Duran Mann MD Liver Ultrasound 02/25/17 0000 Signed Impressions: Service Date/Time: Saturday, February 25, 2017 08:05 - CONCLUSION: 1. Echogenic and heterogeneous liver which can be seen with hepatocellular dysfunction. 2. Right kidney slightly small in size. 3. Cholecystectomy. Obinna Lobo MD Chest X-Ray 02/24/17 0000 Signed Impressions: Service Date/Time: Friday, February 24, 2017 10:55 - CONCLUSION: Abnormal right jugular line. Adequate placement of left jugular line.. Obinna Lobo MD Head CT 02/23/17 1400 Signed Impressions: Service Date/Time: Thursday, February 23, 2017 15:20 - CONCLUSION: Unremarkable study. Hans. Zackery Wells MD Objective Remarks GENERAL: 72 -year-old female, currently on room air SKIN: Warm and dry. There is an estimated 5 cm stage II decubitus ulcer on left buttocks and estimated 1.5 cm stage II decubitus ulcer on right buttocks ( present on admission) HEAD: Atraumatic. Normocephalic. EYES: Pupils are 2 mm bilaterally and reactive. No scleral icterus. No injection or drainage. ENT: No nasal bleeding or discharge. Mucous membranes are moderately moist and pink. NECK: Trachea midline. Obese neck, unable to appreciate JVD. Left IJ is clean dry and intact. Prior right IJ site without bleeding or erythema CARDIOVASCULAR: RRR. S1-S2, no S4. Without murmur RESPIRATORY: Diminished breath sounds throughout due to body habitus. Few scattered coarse crackles appreciated anteriorly GASTROINTESTINAL: Abdomen obese, soft, nontender. Hypoactive bowel sounds are appreciated. : Cuellar in place with yellow urine output. MUSCULOSKELETAL: Extremities with chronic venous stasis bilateral lower extremities.. 1+ pitting edema bilateral lower extremities. NEUROLOGICAL: Cranial nerves II through XII grossly intact. Strength 4-5 left upper and lower extremity. 5 out of 5 right upper and lower extremity Normal sensation light touch and pinprick. A/P Assessment and Plan NEURO/PSYCH: Acute toxic metabolic encephalopathy History of vascular access with residual left weakness Generalized Deconditioning Chronic opiate use CT brain 02/23/17no acute abnormality Patient is on hydrocodone/acetaminophen 5/325 one tablet every 4 hours when necessary at home RESP: Acute hypoxemic respiratory failure COPD Obstructive sleep apnea - CPAP at home. Pneumonia Nasal cannula to maintain saturations greater than equal to 92% Incentive spirometry while awake Albuterol/ipratropium aerosols every 6 hours. Albuterol aerosols every 2 hours as needed Decadron 4 mg IV every 6 hours be tapered off today And no longer on CPAP. Chest x-ray is bilateral upper lobe which is likely infectious etiology CV: History of paroxysmal atrial fibrillation on chronic anticoagulation. Currently in sinus rhythm Mild troponin elevation may be due secondary to sepsis and renal failure. Chronic diastolic heart failure Hypertension Severe sepsis 2-D echo 10/24/16ejection fraction 55%. Normal wall motion with no regional wall motion abnormalities. Positive LVH. 2-D echo 02/25/17ejection impression 55-60%. No regional wall motion abnormalities. Serial troponins with mild elevation ~ 0.12 likely secondary to sepsis. Patient is on diltiazem 60 mg by mouth every 8 hours at home. Resume 30 mg 4 times a day here Patient is on furosemide 40 mg by mouth daily at home. Resume today GI: Chronic protein energy malnutrition Status post cholecystectomy Pantoprazole 40 mg IV every 12 hours. On pantoprazole 40 mg by mouth daily mcc Docusate sodium/senna 1 tablet twice a day for bowel regimen Speech therapy to swallow evaluation regular EGD 02/26 revealed multiple PEEP pyloric gastric erosions as ulcerations with biopsies performed. Liver u/s - liver heterogeneous/echogenetic without ductal dilatation. Status post cholecystectomy. FEN/RENAL: Acute kidney injury overlying chronic kidney disease stage IIIb Cuellar in place. Monitor intake and output. Monitor electrolyte. Replace electrolytes as clinically indicated. She might be stage IV this point her creatinine currently 2.0 ID: Polymicrobial bacteremia - Pseudomonas, gram-negative grace,'s group D enterococcus and Proteus Funguria Pertinent cultures 02/23 - blood cultures 2 - Pseudomonas, gram-negative grace, group D enterococcus , Proteus 02/23 - urine - yeast NOS 02/24 - sputum/urine Legionella and pneumococcal antigens no growth/negative 02/25 - blood cultures 2 -no growth Day 5 levofloxacin, vancomycin. Day #4 meropenem Infectious disease following 2-D echocardiogram revealed no vegetations on heart valves HEME/ONC: Chronic Apixaban use Acute anemia overlying chronic iron deficiency anemia. Leukocytosis Transfused 2 unit packed red cells since admission Follow-up CBC daily. Monitor trends Apixaban held in light of gastric ulcers. Resume when okay with GASTROenteroLOGY ENDO: IDDM Hypoglycemia - resolved Currently on sliding scale insulin with Novulin R with Accu-Cheks every 4 hours to maintain euglycemia/medium regimen. Switch before meals/at bedtime with detemir 8 units twice a day to be initiated Patient is on insulin glargine 37 units at home. MSK Elevated BMI Wt loss encouraged PROPH: Hold pharmacologic DVT prophylaxis due to anemia. SCDs for DVT prophylaxis. Pantoprazole 40 mg IV every 12 hours for stress ulcer prophylaxis ACCESS: L IJ CVL placed 02/24 #4. Right IJ inserted 02/23 removed 02/24. Level II follow-up. Patient is stable from a critical care medicine standpoint. Assign care to hospitalist in a.m. 03/01. Bernardo Sheikh MD Feb 28, 2017 08:36
[2017-02-28] MEDS: DEXAMETHASONE SOD PHOS 4 MG/ML VIAL IV PUSH SCH ×2 (08:38→09:00)
[2017-02-28] MEDS: SODIUM CHLORIDE 0.9% FLUSH 10 ML FLUSH IV FLUSH SCH ×2 (08:38→23:30)
[2017-02-28] MEDS: DOCUSATE SODIUM 50 MG/SENNA 8.6 MG TAB PO SCH ×2 (08:39→21:00)
[2017-02-28] MEDS: INSULIN DETEMIR 100 UNITS/ML VIAL SQ SCH ×2 (08:39→19:45)
[2017-02-28] MEDS: CHLORHEXIDINE 0.12% (ORAL KIT) 15 ML CUP MT SCH ×2 (08:41→20:00)
[2017-02-28] MEDS ORDERED: PANTOPRAZOLE SOD 40 MG DELAYED RELEASE TAB PO SCH (08:45)
[2017-02-28] MEDS ORDERED: APIXABAN 5 MG TABLET PO SCH (09:00)
[2017-02-28] MEDS: FUROSEMIDE 40 MG TAB PO SCH (09:20)
[2017-02-28] MEDS: MUPIROCIN 2% OINT 1 APPLIC/GM SYR EACH NARE SCH ×2 (09:20→23:30)
[2017-02-28] MEDS: DILTIAZEM HCL 30 MG TAB PO SCH ×3 (11:15→23:29)
--- NOTE | 2017-02-28 14:44 | HHI.IDPN ---
Subjective Subjective Remarks Patient is a 72-year-old female brought into the hospital after she was found poorly responsive. Patient has known COPD, sleep apnea, and he uses a home CPAP machine. Apparently the patient was sleeping most of the day one day prior to admission, and he did not eat much that day. Her niece was apparently with her and when the son came to see her she was quite lethargic although she did wake up. However she did not really improve much, and even back was called , and they gave her Narcan without any response. In the emergency room she continued to be obtunded, and was moaning a lot. She ended up getting intubated for airway protection. Her glucose was 44 and she was given an amp of 250. There was no fever or chills prior to admission. Her chest x-ray showed left lower lobe infiltrate with some right perihilar opacities. She was admitted with severe sepsis, and her white count was 22,000, and she was hypotensive requiring pressors. Since admission highest temperature being 99. Her urinalysis was fairly unremarkable. 2 blood cultures were done on admission , and they are now reported as growing gram-negative grace. Notes reviewed Stable post extubation Not SOB Afebrile BC with different bacteria - PSAE, Providencia, Proteus, aerococcus and Enterococcus CT A/P negative for infection Repeat BC negative Has moist cough, not bringing up phlegm No abdominal pain NO N/V WBC better Antibiotics Merem Levaquin Vanco dose 02/26 Past Medical History Paroxysmal atrial fibrillation on chronic anticoagulation Obstructive sleep apnea on home CPAP Diabetes mellitus Hypertension Hyperlipidemia Stroke with residual left-sided hemiparesis COPD Past Surgical History Hernia repair Appendectomy Cholecystectomy Right hip replacement Allergies: Coded Allergies: *MDRO Multi-Drug Resistant Organism (Verified Adverse Reaction, Unknown, ) MRSA PCR Screen POSITIVE - 10/24/2016 MRSA (sputum)-10/24/16 Objective . Vital Signs Date Time Temp Pulse Resp B/P (MAP) Pulse Ox O2 Delivery O2 Flow Rate FiO2 02/28/17 12:00 91 02/28/17 12:00 97.8 91 129/59 (82) 98 02/28/17 09:00 87 164/72 (102) 97 02/28/17 08:33 96 Nasal Cannula 1.00 02/28/17 08:00 97.9 79 169/68 (101) 95 02/28/17 08:00 81 02/28/17 07:00 74 128/62 (84) 97 02/28/17 06:00 77 02/28/17 04:00 76 02/28/17 04:00 98.0 76 16 130/65 (86) 95 02/28/17 02:00 69 02/28/17 00:00 75 02/28/17 00:00 98.1 75 17 129/60 (83) 95 02/27/17 22:00 81 02/27/17 20:44 95 Nasal Cannula 1.00 02/27/17 20:00 85 02/27/17 20:00 98.0 85 16 131/61 (84) 94 02/27/17 18:00 93 02/27/17 16:00 72 02/27/17 16:00 98.1 72 18 136/63 (87) 97 02/28/17 02/28/17 03/01/17 14:59 22:59 06:59 Intake Total 50 ml Balance 50 ml IV Total 50 ml . Laboratory Tests Test 02/27/17 03:57 02/28/17 03:25 White Blood Count 18.3 TH/MM3 13.8 TH/MM3 Red Blood Count 3.93 MIL/MM3 3.63 MIL/MM3 Hemoglobin 10.0 GM/DL 9.1 GM/DL Hematocrit 32.2 % 30.1 % Mean Corpuscular Volume 82.0 FL 83.1 FL Mean Corpuscular Hemoglobin 25.6 PG 25.0 PG Mean Corpuscular Hemoglobin Concent 31.1 % 30.1 % Red Cell Distribution Width 19.2 % 19.1 % Platelet Count 291 TH/MM3 250 TH/MM3 Mean Platelet Volume 8.7 FL 8.5 FL Neutrophils (%) (Auto) 85.3 % 79.2 % Lymphocytes (%) (Auto) 12.2 % 16.0 % Monocytes (%) (Auto) 2.4 % 4.7 % Eosinophils (%) (Auto) 0.0 % 0.0 % Basophils (%) (Auto) 0.1 % 0.1 % Neutrophils # (Auto) 15.6 TH/MM3 10.9 TH/MM3 Lymphocytes # (Auto) 2.2 TH/MM3 2.2 TH/MM3 Monocytes # (Auto) 0.4 TH/MM3 0.7 TH/MM3 Eosinophils # (Auto) 0.0 TH/MM3 0.0 TH/MM3 Basophils # (Auto) 0.0 TH/MM3 0.0 TH/MM3 CBC Comment AUTO DIFF AUTO DIFF Differential Comment AUTO DIFF CONFIRMED FINAL DIFF MANUAL Differential Total Cells Counted 100 Neutrophils % (Manual) 83 % Band Neutrophils % 1 % Lymphocytes % 7 % Monocytes % 5 % Neutrophils # (Manual) 12.1 TH/MM3 Metamyelocytes 3 % Myelocytes 1 % Platelet Estimate NORMAL Platelet Morphology Comment NORMAL Polychromasia 2.2 % Basophilic Stippling FAINT Stomatocytes 1+ Laboratory Tests Test 02/27/17 03:57 02/28/17 03:25 Blood Urea Nitrogen 82 MG/DL 77 MG/DL Creatinine 2.09 MG/DL 2.02 MG/DL Random Glucose 184 MG/DL 128 MG/DL Calcium Level 8.5 MG/DL 8.1 MG/DL Phosphorus Level 4.4 MG/DL 4.2 MG/DL Magnesium Level 2.2 MG/DL 2.2 MG/DL Sodium Level 143 MEQ/L 142 MEQ/L Potassium Level 3.7 MEQ/L 3.9 MEQ/L Chloride Level 103 MEQ/L 103 MEQ/L Carbon Dioxide Level 30.0 MEQ/L 33.1 MEQ/L Anion Gap 10 MEQ/L 6 MEQ/L Estimat Glomerular Filtration Rate 23 ML/MIN 24 ML/MIN Total Protein 6.8 GM/DL Albumin 2.0 GM/DL Alkaline Phosphatase 253 U/L Aspartate Amino Transf (AST/SGOT) 19 U/L Alanine Aminotransferase (ALT/SGPT) 19 U/L Total Bilirubin 0.4 MG/DL Imaging Last Impressions Chest X-Ray 02/24/17 0000 Signed Impressions: Service Date/Time: Friday, February 24, 2017 03:15 - CONCLUSION: 1. Bibasilar airspace disease actually appears slightly worse. There may be associated effusions. 2. Stable position of life support tubes including a right IJ central venous catheter with the tip tracking cephalad towards the head. Timothy Pascual MD Head CT 02/23/17 1400 Signed Impressions: Service Date/Time: Thursday, February 23, 2017 15:20 - CONCLUSION: Unremarkable study. Gregory Wells MD Physical Exam GENERAL: awake and alert, NAD SKIN: Warm and dry. No generalized rash HEAD: Atraumatic. Normocephalic. No temporal wasting, or tenderness. EYES: [place] conjunctiva. No petechia or hemorrhage. No scleral icterus. No injection or drainage. EARS, NOSE AND THROAT: Nose without bleeding or purulent nasal discharge. She is orally intubated. NECK: Trachea midline. Supple and not tender, no meningeal signs. LIJ TLC with no evidence of infection CARDIOVASCULAR: Regular rate and rhythm. No murmurs, rubs or gallops heard RESPIRATORY: Coarse breath sounds bilaterally, decreased at bases ABDOMEN: Soft, obese, nondistended, not tender. Has midline ventral hernia. Bowel sounds present and normoactive. No guarding. No rebound. EXTREMITIES: No clubbing, or cyanosis. Has skin changes in both legs c/w chronic leg edema and venous stasis, decreasing edema. Has some scabs in L leg with no evidence of infection. NEUROLOGICAL: Non-focal PSYCHIATRIC: Cooperative LINE: No evidence of infection : Cuellar cath in place with no evidence of infection Assessment & Plan Remarks IMPRESSION Polymicrobial sepsis, ?source, usually cases with polymicrobial are intraabdominal, but exam is unremarkable Possible aspiration PNA Respiratory failure Known COPD, sleep apnea CKD Morbid obesity Mild elevation of LFTs Leukocytosis, improving RECOMMENDATION Continue Zosyn Continue Levaquin Will not any further Vanco Follow CBC Monitor progress If no other (+) BC, possibly oral Abx to complete Rx: Levaquin and Augmentin x [address] Kaci Zambrano available if needed 03/01-03/03 Marlene Calderon MD Feb 28, 2017 14:44
--- NOTE | 2017-02-28 15:15 | HHI.GIFU ---
Subjective Remarks Patient is resting in bed. She is not having any nausea or vomiting. She had mild epigastric discomfort after eating. No active GI bleeding. The nurse reports that she had a large brown stool (Esther WellsP) Objective Vitals I&O Vital Signs Date Time Temp Pulse Resp B/P (MAP) Pulse Ox O2 Delivery O2 Flow Rate FiO2 02/28/17 12:00 91 02/28/17 12:00 97.8 91 129/59 (82) 98 02/28/17 09:00 87 164/72 (102) 97 02/28/17 08:33 96 Nasal Cannula 1.00 02/28/17 08:00 97.9 79 169/68 (101) 95 02/28/17 08:00 81 02/28/17 07:00 74 128/62 (84) 97 02/28/17 06:00 77 02/28/17 04:00 76 02/28/17 04:00 98.0 76 16 130/65 (86) 95 02/28/17 02:00 69 02/28/17 00:00 75 02/28/17 00:00 98.1 75 17 129/60 (83) 95 02/27/17 22:00 81 02/27/17 20:44 95 Nasal Cannula 1.00 02/27/17 20:00 85 02/27/17 20:00 98.0 85 16 131/61 (84) 94 02/27/17 18:00 93 02/27/17 16:00 72 02/27/17 16:00 98.1 72 18 136/63 (87) 97 I/O 02/27/17 02/27/17 02/27/17 02/28/17 02/28/17 02/28/17 06:59 14:59 22:59 06:59 14:59 22:59 Intake Total 0 ml 150 ml 740 ml 220 ml 50 ml Output Total 300 ml 600 ml 450 ml Balance -300 ml 150 ml 140 ml -230 ml 50 ml Intake Oral 0 ml 120 ml IV Total 0 ml 150 ml 740 ml 100 ml 50 ml Output Urine Total 300 ml 600 ml 450 ml # Bowel Movements 0 0 Laboratory Laboratory Tests Test 02/28/17 03:25 White Blood Count 13.8 Red Blood Count 3.63 Hemoglobin 9.1 Hematocrit 30.1 Mean Corpuscular Volume 83.1 Mean Corpuscular Hemoglobin 25.0 Mean Corpuscular Hemoglobin Concent 30.1 Red Cell Distribution Width 19.1 Platelet Count 250 Mean Platelet Volume 8.5 Neutrophils (%) (Auto) 79.2 Lymphocytes (%) (Auto) 16.0 Monocytes (%) (Auto) 4.7 Eosinophils (%) (Auto) 0.0 Basophils (%) (Auto) 0.1 Neutrophils # (Auto) 10.9 Lymphocytes # (Auto) 2.2 Monocytes # (Auto) 0.7 Eosinophils # (Auto) 0.0 Basophils # (Auto) 0.0 CBC Comment AUTO DIFF Differential Total Cells Counted 100 Neutrophils % (Manual) 83 Band Neutrophils % 1 Lymphocytes % 7 Monocytes % 5 Neutrophils # (Manual) 12.1 Metamyelocytes 3 Myelocytes 1 Differential Comment FINAL DIFF MANUAL Platelet Estimate NORMAL Platelet Morphology Comment NORMAL Polychromasia 2.2 Basophilic Stippling FAINT Stomatocytes 1+ Blood Urea Nitrogen 77 Creatinine 2.02 Random Glucose 128 Total Protein 6.8 Albumin 2.0 Calcium Level 8.1 Phosphorus Level 4.2 Magnesium Level 2.2 Alkaline Phosphatase 253 Aspartate Amino Transf (AST/SGOT) 19 Alanine Aminotransferase (ALT/SGPT) 19 Total Bilirubin 0.4 Sodium Level 142 Potassium Level 3.9 Chloride Level 103 Carbon Dioxide Level 33.1 Anion Gap 6 Estimat Glomerular Filtration Rate 24 Date/Time Source Procedure Growth Status 02/25/17 03:43 Blood Peripheral Aerobic Blood Culture - Preliminary NO GROWTH IN 3 DAYS Resulted 02/25/17 03:43 Blood Peripheral Anaerobic Blood Culture - Preliminary NO GROWTH IN 3 DAYS Resulted 02/24/17 18:00 Sputum Endotracheal Gram Stain - Final Complete 02/24/17 18:00 Sputum Endotracheal Sputum Culture - Final LIGHT GROWTH NORMAL RESPIRATORY DAMASO Complete 02/23/17 15:10 Urine Catheterized Urine Legionella Antigen - Final PRESUMPTIVE NEGATIVE FOR LEGIONELLA P... Complete 02/23/17 15:10 Urine Catheterized Urine Streptococcus pneumoniae Antigen (M - Final PRESUMPTIVE NEGATIVE FOR STREPTOCOCCU... Complete Imaging Last Impressions Abdomen/Pelvis CT 02/27/17 0000 Signed Impressions: Service Date/Time: Monday, February 27, 2017 15:24 - CONCLUSION: 1. No evidence for abscess. Duran Mann MD Liver Ultrasound 02/25/17 0000 Signed Impressions: Service Date/Time: Saturday, February 25, 2017 08:05 - CONCLUSION: 1. Echogenic and heterogeneous liver which can be seen with hepatocellular dysfunction. 2. Right kidney slightly small in size. 3. Cholecystectomy. Obinna Lobo MD Chest X-Ray 02/24/17 0000 Signed Impressions: Service Date/Time: Friday, February 24, 2017 10:55 - CONCLUSION: Abnormal right jugular line. Adequate placement of left jugular line.. Obinna Lobo MD Head CT 02/23/17 1400 Signed Impressions: Service Date/Time: Thursday, February 23, 2017 15:20 - CONCLUSION: Unremarkable study. Gregory Wells MD Physical Exam HEENT: Normocephalic; atraumatic; no jaundice. CHEST: Resp even/unlabored. Diminished CARDIAC: RRR ABDOMEN: Soft, nondistended, nontender; no hepatosplenomegaly; bowel sounds are present in all four quadrants. EXTREMITIES: No clubbing, cyanosis, + edema & discoloration BLE SKIN: no rash; no jaundice. SALES PRODUCER: lethargic (Esther Wells) Assessment and Plan Plan ASSESSMENT: - Anemia with hemoccult (+) stool. Hx of PUD. (+) Eliquis use at home. S/P EGD (02/26/17)---> the esophagus was otherwise normal, multiple small ulcers were found in the prepyloric region of the stomach and at the pylorus; biopsies were taken. Food residue in the gastric fundus, cardia, and gastric body, normal duodenal mucosa in the bulb and second portion of the duodenum, retroflexion was performed and was normal. Pathology revealed moderate chronic active gastritis with features of ulceration and associated reactive epithelial changes negative for H. pylori. She is tolerating her diet. There is no evidence of active GI bleeding. PPI. HH 9.1/30.1. - Sepsis with leukocytosis/bacteremia/UTI/PNA. Urine cx with silverio glabrata, BCx with PSAE, Providencia, Stuartii, aerococcus viridans. group D enterococcus, proteus mirabilis. Levaquin. - Acute respiratory failure with PNA, COPD, LAXMI. Exubated, nebs, abx per CCM - Elevated troponin, CHF per attending. Essentially the same x 3. - HIRAM, Creat 2.02 - Hx PAfib, on chronic anticoagulation at home. Eliquis at home. On hold. - DM per attending. PLAN: - DANIELLE - Continue Protonix - Monitor HH - Transfuse as necessary - Okay to resume Eliquis in 3 days - Supportive care - Pt seen and examined by Dr. Nelson and myself and this note is written on his behalf (Esther Wells) Physician Comments Seen and examined, plan as above. (Bharati Nelson MD) Esther Wells Feb 28, 2017 15:15 Bharati Nelson MD Mar 01, 2017 06:18
[2017-02-28] MEDS: REMOVE OLD PATCH T-DERMAL SCH (18:00)
[2017-03-01] VITALS (12 sets, daily range): BP systolic 132–160; BP diastolic 61–75; PULSE 74–90; RESP 19–20; TEMP 97.3–98.4; O2SAT 94–97
[2017-03-01] MEDS: INSULIN ASPART SUPPLEMENTAL SCALE SQ SCH ×5 (02:47→23:01)
[2017-03-01] MEDS: CHLORHEXIDINE GLUCONATE 2 % 1 PACK (2 CLOTHS) TOP SCH (04:00)
[2017-03-01] MEDS: RESP: ALBUTEROL 2.5 MG/IPRATROPIUM 0.5 MG NEB (SCH) INH ×4 (04:13→21:43)
[2017-03-01] MEDS: DILTIAZEM HCL 30 MG TAB PO SCH ×4 (06:00→23:57)
[2017-03-01] MEDS: PANTOPRAZOLE SODIUM 40 MG VIAL IV SCH ×2 (06:00→17:11)
[2017-03-01] MEDS: PIPERACIL-TAZO 3.375 GM PREMIX 50 ML IV SCH ×4 (06:00→22:49)
[2017-03-01 07:05] LABS: AUTOMATED NEUTROPHIL # 11.1 TH/MM3 (1.8-7.7); BASOPHIL % 0.2 % (0.0-2.0); EOSINOPHIL # 0.1 TH/MM3 (0-0.4); EOSINOPHIL % 0.6 % (0.0-4.0); HEMATOCRIT 29.8 % (35.0-46.0); LYMPH % 23.1 % (9.0-44.0); LYMPHOCYTE # 3.6 TH/MM3 (1.0-4.8); MEAN CELL VOLUME 82.9 FL (80.0-100.0); MEAN CORPUSCULAR HEMOGLOBIN 25.2 PG (27.0-34.0); MEAN CORPUSCULAR HGB CONC 30.4 % (32.0-36.0); MONO % 5.8 % (0.0-8.0); NEUT % 70.3 % (16.0-70.0); PLATELET COUNT 245 TH/MM3 (150-450); RED CELL DISTRIBUTION WIDTH 19.1 % (11.6-17.2); WHITE BLOOD COUNT 15.8 TH/MM3 (4.0-11.0)
[2017-03-01 07:08] LABS: HEMO FLAGS AUTO DIFF
[2017-03-01 07:31] LABS: ALKALINE PHOSPHATASE 193 U/L (45-117); ALT (GPT) 18 U/L (10-53); ANION GAP 7 MEQ/L (5-15); AST (GOT) 22 U/L (15-37); BLOOD UREA NITROGEN 66 MG/DL (7-18); CHLORIDE 104 MEQ/L (98-107); GLOMERULAR FILTRATION RATE 27 ML/MIN (>89); POTASSIUM 3.5 MEQ/L (3.5-5.1); SODIUM (NA) 141 MEQ/L (136-145); TOTAL BILIRUBIN ADULT 0.4 MG/DL (0.2-1.0)
[2017-03-01] MEDS: CHLORHEXIDINE 0.12% (ORAL KIT) 15 ML CUP MT SCH ×2 (08:00→20:00)
[2017-03-01 08:53] LABS: BANDS 2 % (0-6); METAMYELOCYTES 3 % (0-1); MYELOCYTES 1 % (0-0); PLATELET ESTIMATE SMEAR NORMAL (NORMAL); POLYS (SEG NEUTROPHILS) 69 % (16-70); PROMYELOCYTES 1 % (0-0); WBC DIFF SAMPLE 100
[2017-03-01 08:55] LABS: SCAN/DIFF FINAL DIFF MANUAL; STOMATOCYTES 1+ (NORMAL)
[2017-03-01 08:56] LABS: PLATELET MORPHOLOGY NORMAL (NORMAL)
[2017-03-01] MEDS: MUPIROCIN 2% OINT 1 APPLIC/GM SYR EACH NARE SCH ×2 (09:00→22:48)
[2017-03-01] MEDS: DOCUSATE SODIUM 50 MG/SENNA 8.6 MG TAB PO SCH ×2 (09:00→21:00)
[2017-03-01] MEDS: REMOVE OLD PATCH T-DERMAL SCH (09:00)
[2017-03-01] MEDS: FUROSEMIDE 40 MG TAB PO SCH (09:17)
[2017-03-01] MEDS: DEXAMETHASONE SOD PHOS 4 MG/ML VIAL IV PUSH SCH (09:18)
[2017-03-01] MEDS: NICOTINE 14 MG/24 HR PATCH T-DERMAL SCH (09:19)
[2017-03-01] MEDS: SODIUM CHLORIDE 0.9% FLUSH 10 ML FLUSH IV FLUSH SCH ×2 (09:19→22:49)
[2017-03-01] MEDS: INSULIN DETEMIR 100 UNITS/ML VIAL SQ SCH ×2 (09:46→23:00)
--- NOTE | 2017-03-01 11:55 | HHI.PR ---
Subjective Remarks resting comfortably in no acute distress. has some pain to the legs when she's working with PT. afebrile. otherwise no other complaints. d/w the RN. Objective Vitals Vital Signs Date Time Temp Pulse Resp B/P (MAP) Pulse Ox O2 Delivery O2 Flow Rate FiO2 03/01/17 09:58 78 03/01/17 09:12 97 Nasal Cannula 2.00 03/01/17 08:00 97.4 83 19 134/64 (87) 96 03/01/17 04:14 94 Nasal Cannula 2.00 03/01/17 04:00 97.5 74 20 138/62 (87) 97 03/01/17 00:00 97.9 85 20 134/61 (85) 95 02/28/17 20:32 97.7 93 20 129/85 (100) 96 02/28/17 20:15 98 Nasal Cannula 3.00 02/28/17 19:00 86 02/28/17 16:00 97.9 78 136/64 (88) 98 02/28/17 16:00 78 02/28/17 12:00 91 02/28/17 12:00 97.8 91 129/59 (82) 98 I/O 02/28/17 02/28/17 02/28/17 03/01/17 03/01/17 03/01/17 07:00 15:00 23:00 07:00 15:00 23:00 Intake Total 220 ml 50 ml 938 ml 360 ml Output Total 450 ml 450 ml Balance -230 ml 50 ml 488 ml 360 ml Intake Oral 120 ml 888 ml 360 ml IV Total 100 ml 50 ml 50 ml Output Urine Total 450 ml 450 ml # Voids 3 2 # Bowel Movements 0 3 1 Result Diagram: 03/01/17 0612 03/01/17 0612 Imaging Last Impressions Abdomen/Pelvis CT 02/27/17 0000 Signed Impressions: Service Date/Time: Monday, February 27, 2017 15:24 - CONCLUSION: 1. No evidence for abscess. Duran Mann MD Liver Ultrasound 02/25/17 0000 Signed Impressions: Service Date/Time: Saturday, February 25, 2017 08:05 - CONCLUSION: 1. Echogenic and heterogeneous liver which can be seen with hepatocellular dysfunction. 2. Right kidney slightly small in size. 3. Cholecystectomy. Obinna Lobo MD Chest X-Ray 02/24/17 0000 Signed Impressions: Service Date/Time: Friday, February 24, 2017 10:55 - CONCLUSION: Abnormal right jugular line. Adequate placement of left jugular line.. Obinna Lobo MD Head CT 02/23/17 1400 Signed Impressions: Service Date/Time: Thursday, February 23, 2017 15:20 - CONCLUSION: Unremarkable study. Gregory Wells MD Objective Remarks GENERAL: This is a well-nourished, well-developed patient, in no apparent distress. CARDIOVASCULAR: Regular rate and regular rhythm without murmurs, gallops, or rubs. RESPIRATORY: Clear to auscultation. Breath sounds equal bilaterally. No wheezes , rales, or rhonchi. GASTROINTESTINAL: Abdomen soft, non-tender, nondistended. Normal, active bowel sounds MUSCULOSKELETAL: Extremities with bilateral pedal edema. NEURO: Alert & Oriented x4 to person, place, time, situation. Moves all ext x4 Procedures central line placement intubation Medications and IVs Current Medications Etomidate (Amidate Inj) 40 mg ONCE ONCE IVP Last administered on 02/23/17 14: 54; Start 02/23/17 at 14:15; Stop 02/23/17 at 14:16; Status DC Succinylcholine Chloride (Quelicin Inj) 100 mg ONCE ONCE IVP Last administered on 02/23/17 14:54; Start 02/23/17 at 14:15; Stop 02/23/17 at 14:16 ; Status DC Sodium Chloride (NS Flush) 2 ml UNSCH PRN IVF FLUSH AFTER USING IV ACCESS; Start 02/23/17 at 14:15; Stop 02/23/17 at 19:30; Status DC Propofol 100 ml @ 0 mls/hr TITRATE IV Last administered on 02/23/17 14:54; Start 02/23/17 at 14:15; Stop 02/24/17 at 16:40; Status DC Midazolam HCl (Versed Inj) 1 mg ONCE ONCE IV Last administered on 02/23/17 15 :27; Start 02/23/17 at 15:15; Stop 02/23/17 at 15:16; Status DC Midazolam HCl 100 ml @ 0 mls/hr TITRATE IV Last administered on 02/23/17 15:28 ; Start 02/23/17 at 15:15; Stop 02/23/17 at 17:23; Status DC Sodium Chloride 1,000 ml @ 999 mls/hr BOLUS ONCE IV Last administered on 02/23 15:27; Start 02/23/17 at 15:15; Stop 02/23/17 at 16:15; Status DC Piperacillin Sod/ Tazobactam Sod 100 ml @ 200 mls/hr ONCE STAT IV Last administered on 02/23/17 16:19; Start 02/23/17 at 15:15; Stop 02/23/17 at 15:44 ; Status DC Azithromycin 500 mg/Sodium Chloride 250 ml @ 250 mls/hr ONCE STAT IV ; Start 02/23/17 at 15:15; Stop 02/23/17 at 16:14; Status DC Sodium Chloride 250 ml @ 15 mls/hr ONCE ONCE IV ; Start 02/23/17 at 15:30; Stop 02/24/17 at 08:14; Status DC Vancomycin HCl 1000 mg/Sodium Chloride 250 ml @ 250 mls/hr ONCE ONCE IV Last administered on 02/23/17 17:39; Start 02/23/17 at 15:30; Stop 02/23/17 at 16:29 ; Status DC Dextrose (D50w (Syr) Inj) 50 ml ONCE ONCE IV Last administered on 02/23/17 16 :08; Start 02/23/17 at 15:30; Stop 02/23/17 at 15:32; Status DC Sodium Chloride 1,000 ml @ 999 mls/hr BOLUS ONCE IV Last administered on 02/23 16:09; Start 02/23/17 at 15:45; Stop 02/23/17 at 16:45; Status DC Fentanyl Citrate 250 ml @ 0 mls/hr TITRATE IV Last administered on 02/26/17 11 :01; Start 02/23/17 at 16:00; Stop 02/26/17 at 15:22; Status DC Sodium Chloride 1,000 ml @ 100 mls/hr Q10H IV ; Start 02/23/17 at 17:00; Stop 02/23/17 at 17:23; Status DC Sodium Chloride (NS Flush) 2 ml UNSCH PRN IV FLUSH FLUSH AFTER USING IV ACCESS ; Start 02/23/17 at 17:00 Sodium Chloride (NS Flush) 2 ml BID IV FLUSH Last administered on 03/01/17 09: 19; Start 02/23/17 at 21:00 Acetaminophen (Tylenol) 650 mg Q6H PRN PO PAIN 1-10 AND/OR FEVER >101F; Start 02/23/17 at 17:00 Fentanyl Citrate (fentaNYL INJ) 50 mcg Q1H PRN IV PUSH Pain scale 6-10 &/or sedation Last administered on 02/25/17 03:20; Start 02/23/17 at 17:00; Stop at 10:49; Status DC Pantoprazole Sodium (Protonix Inj) 40 mg Q12H IV Last administered on 06:00; Start 02/23/17 at 17:00 Midazolam HCl (Versed Inj) 2 mg Q1H PRN IV SEDATION Last administered on 05:00; Start 02/23/17 at 17:00; Stop 02/26/17 at 10:49; Status DC Ondansetron HCl (Zofran Inj) 4 mg Q6H PRN IV NAUSEA OR VOMITING; Start at 17:00 Albuterol/ Ipratropium (Duoneb Neb) 1 ampule Q6HR NEB INH Last administered on 02/27/17 07:19; Start 02/23/17 at 22:00; Stop 02/27/17 at 10:37; Status DC Albuterol Sulfate (Albuterol Neb) 2.5 mg Q2HR NEB PRN INH SOB/WHEEZING; Start 02/23/17 at 17:00 Miscellaneous Information 1 Q361D XX ; Start 02/23/17 at 17:00 Chlorhexidine Gluconate (Chlorhexidine 2% Cloth) Taper DAILY@04 TOP Last administered on 02/28/17 04:00; Start 02/24/17 at 04:00; Stop 02/20/18 at 03:59 Chlorhexidine Gluconate (Chlorhexidine 2% Cloth) 3 pack UNSCH PRN TOP HYGIENIC CARE; Start 02/23/17 at 17:00 Senna/Docusate Sodium (Leda-Colace) 1 tab BID PO Last administered on 22:16; Start 02/23/17 at 21:00 Magnesium Hydroxide (Milk Of Magnesia Liq) 30 ml Q12H PRN PO MILD - MODERATE CONSTIPATION; Start 02/23/17 at 17:00 Sennosides (Senokot) 17.2 mg Q12H PRN PO MODERATE - SEVERE CONSTIPATION; Start 02/23/17 at 17:00 Bisacodyl (Dulcolax Supp) 10 mg DAILY PRN RECTAL SEVERE CONSITIPATION; Start at 17:00 Lactulose (Lactulose Liq) 30 ml DAILY PRN PO SEVERE CONSITIPATION; Start at 17:00 Sodium Chloride 250 ml @ 15 mls/hr ONCE ONCE IV Last administered on 19:30; Start 02/23/17 at 17:00; Stop 02/24/17 at 09:39; Status DC Pharmacy Profile Note 0 ml @ 0 mls/hr UNSCH OTHER ; Start 02/23/17 at 17:15 Piperacillin Sod/ Tazobactam Sod 50 ml @ 100 mls/hr Q6H IV Last administered on 02/24/17 10:00; Start 02/23/17 at 22:00; Stop 02/24/17 at 16:23; Status DC Levofloxacin/ Dextrose 150 ml @ 100 mls/hr Q48H IV Last administered on 16:40; Start 02/23/17 at 18:00 Norepinephrine Bitartrate 250 ml @ 0 mls/hr TITRATE IV Last administered on 13:08; Start 02/23/17 at 17:15; Stop 02/26/17 at 15:23; Status DC Terbutaline Sulfate (Brethine Inj) 1 mg UNSCH PRN SQ For Extravasation; Start 02/23/17 at 17:15 Dextrose 1,000 ml @ 30 mls/hr Q24H IV Last administered on 02/25/17 05:05; Start 02/23/17 at 17:15; Stop 02/25/17 at 21:49; Status DC Midazolam HCl 100 ml @ 0 mls/hr TITRATE IV Last administered on 02/24/17 06:15 ; Start 02/23/17 at 17:30; Stop 02/24/17 at 14:56; Status DC Vancomycin HCl 1000 mg/Sodium Chloride 250 ml @ 250 mls/hr ONCE ONCE IV Last administered on 02/23/17 19:29; Start 02/23/17 at 18:00; Stop 02/23/17 at 18:59 ; Status DC Chlorhexidine Gluconate (Peridex 0.12% Liq) 15 ml BID@08,20 MT Last administered on 02/26/17 21:34; Start 02/24/17 at 08:00; Stop 02/27/17 at 11:29 ; Status DC Miscellaneous Information SPECIFIC LAB TO BE DRAWN:VANCOMY... ONCE ONCE .XX ; Start 02/27/17 at 17:45; Stop 02/27/17 at 17:46; Status Cancel Propofol 100 ml @ 0 mls/hr TITRATE IV ; Start 02/24/17 at 15:00; Stop 02/26/17 at 10:49; Status DC Miscellaneous Medication (ASP Crit: Infectious disease consult) 1 UNSCH X1 PRN .XX PHARMACY DOCUMENTATION; Start 02/24/17 at 16:00; Stop 02/25/17 at 15:59; Status DC Miscellaneous Medication ([facility] Information) 1 UNSCH X1 PRN XX PHARMACY DOCUMENTATION; Start 02/24/17 at 16:00; Stop 02/25/17 at 15:59; Status DC Meropenem 1000 mg/ Sodium Chloride 100 ml @ 200 mls/hr Q12H IV Last administered on 02/27/17 05:19; Start 02/24/17 at 17:00; Stop 02/27/17 at 10:58 ; Status DC Piperacillin Sod/ Tazobactam Sod 50 ml @ 100 mls/hr Q6H IV ; Start 02/24/17 at 16:00; Stop 02/24/17 at 16:39; Status DC Piperacillin Sod/ Tazobactam Sod 50 ml @ 100 mls/hr Q6H IV Last administered on 02/25/17 05:57; Start 02/24/17 at 18:00; Stop 02/25/17 at 10:41; Status DC Furosemide (Lasix Inj) 40 mg ONCE ONCE IV PUSH Last administered on 02/25/17 11:43; Start 02/25/17 at 10:45; Stop 02/25/17 at 10:50; Status DC Dexmedetomidine HCl 200 mcg/ Sodium Chloride 52 ml @ 5.9 mls/hr TITRATE PRN IV SEDATION; Start 02/25/17 at 10:45; Stop 02/27/17 at 10:37; Status DC Sodium Chloride 250 ml @ 15 mls/hr ONCE ONCE IV Last administered on 17:51; Start 02/25/17 at 11:30; Stop 02/26/17 at 04:09; Status DC Dexamethasone Sodium Phosphate (Decadron Inj) 4 mg Q6HR IV PUSH Last administered on 02/27/17 05:18; Start 02/25/17 at 18:00; Stop 02/27/17 at 10:39 ; Status DC Acetazolamide Sodium (Diamox Inj) 250 mg Q6H IV PUSH Last administered on 05:31; Start 02/25/17 at 22:00; Stop 02/26/17 at 04:01; Status DC Vancomycin HCl 1000 mg/Sodium Chloride 250 ml @ 250 mls/hr ONCE ONCE IV Last administered on 02/26/17 11:01; Start 02/26/17 at 10:00; Stop 02/26/17 at 10:59 ; Status DC Chlorhexidine Gluconate (Peridex 0.12% Liq) 15 ml BID@08,20 MT ; Start 02/26/17 at 20:00; Stop 02/26/17 at 20:00; Status DC Fentanyl Citrate 250 ml @ 5 mls/hr TITRATE PRN IV SEDATION Last administered on 02/26/17 15:27; Start 02/26/17 at 10:45; Stop 02/27/17 at 10:37; Status DC Chlorhexidine Gluconate (Peridex 0.12% Liq) 15 ml BID@08,20 MT Last administered on 02/27/17 20:00; Start 02/26/17 at 20:00 Midazolam HCl 100 ml @ 2 mls/hr TITRATE PRN IV SEDATION; Start 02/26/17 at 10: 45; Stop 02/27/17 at 10:37; Status DC Dextrose (D50w (Vial) Inj) 50 ml UNSCH PRN IV HYPOGLYCEMIA-SEE COMMENTS; Start 02/26/17 at 11:00 Glucagon (Glucagon Inj) 1 mg UNSCH PRN OTHER HYPOGLYCEMIA-SEE COMMENTS; Start 02/26/17 at 11:00 Insulin Aspart (NovoLOG SUPPLEMENTAL SCALE) 1 Q4HR SQ Last administered on 02/27 08:47; Start 02/26/17 at 12:00; Stop 02/27/17 at 10:39; Status DC Norepinephrine Bitartrate 250 ml @ 7.5 mls/hr TITRATE PRN IV Blood Pressure Management; Start 02/26/17 at 15:30; Stop 02/27/17 at 10:37; Status DC Propofol (Diprivan 200 Mg/20 ml Inj) 50 mg ONCE ONCE IV PUSH ; Start 02/26/17 at 15:23; Stop 02/26/17 at 16:24; Status DC Albuterol/ Ipratropium (Duoneb Neb) 1 ampule Q6HR NEB INH Last administered on 03/01/17 09:09; Start 02/27/17 at 16:00 Insulin Detemir (Levemir Inj) 8 units Q12HR SQ Last administered on 03/01/17 09:46; Start 02/27/17 at 21:00 Albuterol/ Ipratropium (Duoneb Neb) 1 ampule Q6HR NEB INH ; Start 02/27/17 at 16:00; Stop 02/27/17 at 16:00; Status DC Albuterol/ Ipratropium (Duoneb Neb) 1 ampule Q6HR NEB INH ; Start 02/27/17 at 16:00; Stop 02/27/17 at 16:00; Status DC Dexamethasone Sodium Phosphate (Decadron Inj) 4 mg BID IV PUSH Last administered on 02/28/17 08:38; Start 02/27/17 at 21:00; Stop 02/28/17 at 08:43 ; Status DC Insulin Aspart (NovoLOG SUPPLEMENTAL SCALE) 1 [id number] SLIDE SCALE SQ Last administered on 02/28/17 19:44; Start 02/27/17 at 11:00 Piperacillin Sod/ Tazobactam Sod 50 ml @ 100 mls/hr Q6H IV Last administered on 03/01/17 06:00; Start 02/27/17 at 11:00 Diatrizoate Meglum/ Diatrizoate Sod ( Gastroview Liq) 18 ml ONCE ONCE PO Last administered on 02/27/17 12:17; Start 02/27/17 at 11:30; Stop 02/27/17 at 11:31; Status DC Vancomycin HCl 1500 mg/Sodium Chloride 515 ml @ 250 mls/hr ONCE ONCE IV Last administered on 02/27/17 14:24; Start 02/27/17 at 15:00; Stop 02/27/17 at 17:03 ; Status DC Mupirocin (Bactroban Nasal 2% Oint) 1 applic Taper BID EACH NARE Last administered on 02/28/17 23:30; Start 02/28/17 at 09:00; Stop 02/24/18 at 08:59 Apixaban (Eliquis) 5 mg BID PO ; Start 02/28/17 at 09:00; Stop 02/28/17 at 09:00 ; Status DC Furosemide (Lasix) 40 mg DAILY PO Last administered on 03/01/17 09:17; Start 02/28/17 at 09:00 Pantoprazole Sodium (Protonix) 40 mg Q24H PO ; Start 02/28/17 at 08:45; Stop at 08:45; Status DC Dexamethasone Sodium Phosphate (Decadron Inj) 4 mg DAILY IV PUSH Last administered on 03/01/17 09:18; Start 02/28/17 at 09:00; Stop 03/02/17 at 08:59 Diltiazem HCl (Cardizem) 30 mg Q6HR PO Last administered on 03/01/17 06:00; Start 02/28/17 at 12:00 Nicotine (Habitrol 14 Mg Patch.24 Hr) 1 patch DAILY T-DERMAL Last administered on 03/01/17 09:19; Start 03/01/17 at 09:00 Miscellaneous Information 1 DAILY T-DERMAL ; Start 02/28/17 at 18:00 Vancomycin HCl 1500 mg/Sodium Chloride 515 ml @ 257.5 mls/ hr ONCE ONCE IV ; Start 03/01/17 at 15:00; Stop 03/01/17 at 16:59 A/P Assessment and Plan A/P Acute toxic metabolic encephalopathy -resolved History of vascular access with residual left weakness Generalized Deconditioning Chronic opiate use CT brain 02/23/17no acute abnormality continue pain control Acute hypoxemic respiratory failure-resolved COPD Obstructive sleep apnea - CPAP at home. Pneumonia Nasal cannula to maintain saturations greater than equal to 92% Incentive spirometry while awake continue neb treatment Decadron being tapered off. History of paroxysmal atrial fibrillation on chronic anticoagulation. Currently in sinus rhythm Mild troponin elevation may be due secondary to sepsis and renal failure. Chronic diastolic heart failure Hypertension Severe sepsis 2-D echo 10/24/16ejection fraction 55%. Normal wall motion with no regional wall motion abnormalities. Positive LVH. 2-D echo 02/25/17ejection impression 55-60%. No regional wall motion abnormalities. Serial troponins with mild elevation ~ 0.12 likely secondary to sepsis. Patient is on diltiazem 60 mg by mouth every 8 hours at home. Resumed 30 mg 4 times a day here continue lasix Chronic protein energy malnutrition Status post cholecystectomy continue protonix Speech therapy evaluated. EGD 02/26 revealed multiple PEEP pyloric gastric erosions as ulcerations with biopsies performed. Liver u/s - liver heterogeneous/echogenetic without ductal dilatation. Status post cholecystectomy. Acute kidney injury overlying chronic kidney disease stage IIIb Monitor intake and output. Monitor electrolyte. Replace electrolytes as clinically indicated. She might be stage IV this point her creatinine currently 2.0 Polymicrobial bacteremia - Pseudomonas, gram-negative grace,'s group D enterococcus and Proteus Funguria Pertinent cultures 02/23 - blood cultures 2 - Pseudomonas, gram-negative grace, group D enterococcus , Proteus 02/23 - urine - yeast NOS 02/24 - sputum/urine Legionella and pneumococcal antigens no growth/negative 02/25 - blood cultures 2 -no growth continue Zosyn and Levaquin Infectious disease following 2-D echocardiogram revealed no vegetations on heart valves Chronic Apixaban use Acute anemia overlying chronic iron deficiency anemia. Leukocytosis Transfused 2 unit packed red cells since admission Follow-up CBC daily. Monitor trends ok to resume Apixaban in 2 days per GI. IDDM Hypoglycemia - resolved continue levemir with accu-check and SSI Patient is on insulin glargine 37 units at home. Elevated BMI PROPH: Hold pharmacologic DVT prophylaxis due to anemia. SCDs for DVT prophylaxis. Lety Machado MD Mar 01, 2017 11:55
[2017-03-01] MEDS ORDERED: VANCOMYCIN 1,500 MG/NS 500 ML IV ONE ×2 (15:00)
[2017-03-01] MEDS: LEVOFLOXACIN 750 MG PREMIX INJ 150 ML IV SCH (17:10)
[2017-03-01] MEDS: ACETAMINOPHEN/HYDROcodone 325 MG/5 MG TAB PO PRN (22:50)
[2017-03-02] VITALS (8 sets, daily range): BP systolic 131–158; BP diastolic 66–87; PULSE 81–93; RESP 18–24; TEMP 97.2–98.2; O2SAT 96–98
[2017-03-02] MEDS: INSULIN ASPART SUPPLEMENTAL SCALE SQ SCH ×5 (03:00→21:14)
[2017-03-02] MEDS: RESP: ALBUTEROL 2.5 MG/IPRATROPIUM 0.5 MG NEB (SCH) INH ×3 (03:34→22:12)
[2017-03-02] MEDS: CHLORHEXIDINE GLUCONATE 2 % 1 PACK (2 CLOTHS) TOP SCH (04:00)
[2017-03-02] MEDS: PANTOPRAZOLE SODIUM 40 MG VIAL IV SCH ×2 (05:13→17:01)
[2017-03-02] MEDS: PIPERACIL-TAZO 3.375 GM PREMIX 50 ML IV SCH ×4 (05:14→22:58)
[2017-03-02] MEDS: DILTIAZEM HCL 30 MG TAB PO SCH ×4 (05:21→22:58)
[2017-03-02 08:09] LABS: AUTOMATED NEUTROPHIL # 8.3 TH/MM3 (1.8-7.7); EOSINOPHIL % 0.2 % (0.0-4.0); HEMATOCRIT 29.2 % (35.0-46.0); HEMO FLAGS DIFF FINAL; LYMPH % 24.6 % (9.0-44.0); MEAN CELL VOLUME 82.2 FL (80.0-100.0); MEAN CORPUSCULAR HEMOGLOBIN 25.6 PG (27.0-34.0); MEAN CORPUSCULAR HGB CONC 31.2 % (32.0-36.0); MONO % 6.9 % (0.0-8.0); NEUT % 68.3 % (16.0-70.0); PLATELET COUNT 245 TH/MM3 (150-450); RED BLOOD COUNT 3.55 MIL/MM3 (4.00-5.30); RED CELL DISTRIBUTION WIDTH 18.9 % (11.6-17.2); WHITE BLOOD COUNT 12.2 TH/MM3 (4.0-11.0)
[2017-03-02] MEDS: MUPIROCIN 2% OINT 1 APPLIC/GM SYR EACH NARE SCH ×2 (08:26→20:35)
[2017-03-02] MEDS: CHLORHEXIDINE 0.12% (ORAL KIT) 15 ML CUP MT SCH ×2 (08:26→20:00)
[2017-03-02] MEDS: NICOTINE 14 MG/24 HR PATCH T-DERMAL SCH (08:27)
[2017-03-02] MEDS: INSULIN DETEMIR 100 UNITS/ML VIAL SQ SCH ×2 (08:27→21:13)
[2017-03-02] MEDS: SODIUM CHLORIDE 0.9% FLUSH 10 ML FLUSH IV FLUSH SCH ×2 (08:28→20:35)
[2017-03-02] MEDS: DOCUSATE SODIUM 50 MG/SENNA 8.6 MG TAB PO SCH ×2 (08:28→20:35)
[2017-03-02] MEDS: FUROSEMIDE 40 MG TAB PO SCH (08:29)
[2017-03-02 08:31] LABS: BICARBONATE 33.8 MEQ/L (21.0-32.0); POTASSIUM 3.4 MEQ/L (3.5-5.1)
[2017-03-02] MEDS: REMOVE OLD PATCH T-DERMAL SCH (08:34)
--- NOTE | 2017-03-02 11:37 | HHI.PR ---
Subjective Remarks f/u; bacteremia resting comfortably with no distress. no new complaints. afebrile. Objective Vitals Vital Signs Date Time Temp Pulse Resp B/P (MAP) Pulse Ox O2 Delivery O2 Flow Rate FiO2 03/02/17 10:59 81 03/02/17 08:00 97.8 82 24 152/66 (94) 98 03/02/17 04:00 97.3 87 20 158/71 (100) 96 03/02/17 00:00 98.2 93 19 157/71 (99) 96 03/01/17 21:43 97 Nasal Cannula 2.00 03/01/17 20:00 97.3 78 20 132/75 (94) 96 03/01/17 16:11 82 03/01/17 16:00 98.4 85 19 160/73 (102) 96 03/01/17 12:13 74 03/01/17 12:00 98.1 90 19 146/66 (92) 96 I/O 03/01/17 03/01/17 03/01/17 03/02/17 03/02/17 03/02/17 07:00 15:00 23:00 07:00 15:00 23:00 Intake Total 360 ml 1700 ml 430 ml Balance 360 ml 1700 ml 430 ml Intake Oral 360 ml 1200 ml 380 ml IV Total 500 ml 50 ml # Voids 2 6 4 # Bowel Movements 1 4 1 Result Diagram: 03/02/17 0716 03/02/17 0716 Imaging Last Impressions Abdomen/Pelvis CT 02/27/17 0000 Signed Impressions: Service Date/Time: Monday, February 27, 2017 15:24 - CONCLUSION: 1. No evidence for abscess. Duran Mann MD Liver Ultrasound 02/25/17 0000 Signed Impressions: Service Date/Time: Saturday, February 25, 2017 08:05 - CONCLUSION: 1. Echogenic and heterogeneous liver which can be seen with hepatocellular dysfunction. 2. Right kidney slightly small in size. 3. Cholecystectomy. Obinna Lobo MD Chest X-Ray 02/24/17 0000 Signed Impressions: Service Date/Time: Friday, February 24, 2017 10:55 - CONCLUSION: Abnormal right jugular line. Adequate placement of left jugular line.. Obinna Lobo MD Head CT 02/23/17 1400 Signed Impressions: Service Date/Time: Thursday, February 23, 2017 15:20 - CONCLUSION: Unremarkable study. Gregory Wells MD Objective Remarks GENERAL: This is a well-nourished, well-developed patient, in no apparent distress. CARDIOVASCULAR: Regular rate and regular rhythm without murmurs, gallops, or rubs. RESPIRATORY: Clear to auscultation. Breath sounds equal bilaterally. No wheezes , rales, or rhonchi. GASTROINTESTINAL: Abdomen soft, non-tender, nondistended. Normal, active bowel sounds MUSCULOSKELETAL: Extremities with bilateral pedal edema. NEURO: Alert & Oriented x4 to person, place, time, situation. Moves all ext x4 Procedures central line placement intubation Medications and IVs Current Medications Etomidate (Amidate Inj) 40 mg ONCE ONCE IVP Last administered on 02/23/17 14: 54; Start 02/23/17 at 14:15; Stop 02/23/17 at 14:16; Status DC Succinylcholine Chloride (Quelicin Inj) 100 mg ONCE ONCE IVP Last administered on 02/23/17 14:54; Start 02/23/17 at 14:15; Stop 02/23/17 at 14:16 ; Status DC Sodium Chloride (NS Flush) 2 ml UNSCH PRN IVF FLUSH AFTER USING IV ACCESS; Start 02/23/17 at 14:15; Stop 02/23/17 at 19:30; Status DC Propofol 100 ml @ 0 mls/hr TITRATE IV Last administered on 02/23/17 14:54; Start 02/23/17 at 14:15; Stop 02/24/17 at 16:40; Status DC Midazolam HCl (Versed Inj) 1 mg ONCE ONCE IV Last administered on 02/23/17 15 :27; Start 02/23/17 at 15:15; Stop 02/23/17 at 15:16; Status DC Midazolam HCl 100 ml @ 0 mls/hr TITRATE IV Last administered on 02/23/17 15:28 ; Start 02/23/17 at 15:15; Stop 02/23/17 at 17:23; Status DC Sodium Chloride 1,000 ml @ 999 mls/hr BOLUS ONCE IV Last administered on 02/23 15:27; Start 02/23/17 at 15:15; Stop 02/23/17 at 16:15; Status DC Piperacillin Sod/ Tazobactam Sod 100 ml @ 200 mls/hr ONCE STAT IV Last administered on 02/23/17 16:19; Start 02/23/17 at 15:15; Stop 02/23/17 at 15:44 ; Status DC Azithromycin 500 mg/Sodium Chloride 250 ml @ 250 mls/hr ONCE STAT IV ; Start 02/23/17 at 15:15; Stop 02/23/17 at 16:14; Status DC Sodium Chloride 250 ml @ 15 mls/hr ONCE ONCE IV ; Start 02/23/17 at 15:30; Stop 02/24/17 at 08:14; Status DC Vancomycin HCl 1000 mg/Sodium Chloride 250 ml @ 250 mls/hr ONCE ONCE IV Last administered on 02/23/17 17:39; Start 02/23/17 at 15:30; Stop 02/23/17 at 16:29 ; Status DC Dextrose (D50w (Syr) Inj) 50 ml ONCE ONCE IV Last administered on 02/23/17 16 :08; Start 02/23/17 at 15:30; Stop 02/23/17 at 15:32; Status DC Sodium Chloride 1,000 ml @ 999 mls/hr BOLUS ONCE IV Last administered on 02/23 16:09; Start 02/23/17 at 15:45; Stop 02/23/17 at 16:45; Status DC Fentanyl Citrate 250 ml @ 0 mls/hr TITRATE IV Last administered on 02/26/17 11 :01; Start 02/23/17 at 16:00; Stop 02/26/17 at 15:22; Status DC Sodium Chloride 1,000 ml @ 100 mls/hr Q10H IV ; Start 02/23/17 at 17:00; Stop 02/23/17 at 17:23; Status DC Sodium Chloride (NS Flush) 2 ml UNSCH PRN IV FLUSH FLUSH AFTER USING IV ACCESS ; Start 02/23/17 at 17:00 Sodium Chloride (NS Flush) 2 ml BID IV FLUSH Last administered on 03/02/17 08: 28; Start 02/23/17 at 21:00 Acetaminophen (Tylenol) 650 mg Q6H PRN PO PAIN 1-10 AND/OR FEVER >101F; Start 02/23/17 at 17:00 Fentanyl Citrate (fentaNYL INJ) 50 mcg Q1H PRN IV PUSH Pain scale 6-10 &/or sedation Last administered on 02/25/17 03:20; Start 02/23/17 at 17:00; Stop at 10:49; Status DC Pantoprazole Sodium (Protonix Inj) 40 mg Q12H IV Last administered on 05:13; Start 02/23/17 at 17:00 Midazolam HCl (Versed Inj) 2 mg Q1H PRN IV SEDATION Last administered on 05:00; Start 02/23/17 at 17:00; Stop 02/26/17 at 10:49; Status DC Ondansetron HCl (Zofran Inj) 4 mg Q6H PRN IV NAUSEA OR VOMITING; Start at 17:00 Albuterol/ Ipratropium (Duoneb Neb) 1 ampule Q6HR NEB INH Last administered on 02/27/17 07:19; Start 02/23/17 at 22:00; Stop 02/27/17 at 10:37; Status DC Albuterol Sulfate (Albuterol Neb) 2.5 mg Q2HR NEB PRN INH SOB/WHEEZING; Start 02/23/17 at 17:00 Miscellaneous Information 1 Q361D XX ; Start 02/23/17 at 17:00 Chlorhexidine Gluconate (Chlorhexidine 2% Cloth) Taper DAILY@04 TOP Last administered on 02/28/17 04:00; Start 02/24/17 at 04:00; Stop 02/20/18 at 03:59 Chlorhexidine Gluconate (Chlorhexidine 2% Cloth) 3 pack UNSCH PRN TOP HYGIENIC CARE; Start 02/23/17 at 17:00 Senna/Docusate Sodium (Leda-Colace) 1 tab BID PO Last administered on 22:16; Start 02/23/17 at 21:00 Magnesium Hydroxide (Milk Of Magnesia Liq) 30 ml Q12H PRN PO MILD - MODERATE CONSTIPATION; Start 02/23/17 at 17:00 Sennosides (Senokot) 17.2 mg Q12H PRN PO MODERATE - SEVERE CONSTIPATION; Start 02/23/17 at 17:00 Bisacodyl (Dulcolax Supp) 10 mg DAILY PRN RECTAL SEVERE CONSITIPATION; Start at 17:00 Lactulose (Lactulose Liq) 30 ml DAILY PRN PO SEVERE CONSITIPATION; Start at 17:00 Sodium Chloride 250 ml @ 15 mls/hr ONCE ONCE IV Last administered on 19:30; Start 02/23/17 at 17:00; Stop 02/24/17 at 09:39; Status DC Pharmacy Profile Note 0 ml @ 0 mls/hr UNSCH OTHER ; Start 02/23/17 at 17:15 Piperacillin Sod/ Tazobactam Sod 50 ml @ 100 mls/hr Q6H IV Last administered on 02/24/17 10:00; Start 02/23/17 at 22:00; Stop 02/24/17 at 16:23; Status DC Levofloxacin/ Dextrose 150 ml @ 100 mls/hr Q48H IV Last administered on 17:10; Start 02/23/17 at 18:00 Norepinephrine Bitartrate 250 ml @ 0 mls/hr TITRATE IV Last administered on 13:08; Start 02/23/17 at 17:15; Stop 02/26/17 at 15:23; Status DC Terbutaline Sulfate (Brethine Inj) 1 mg UNSCH PRN SQ For Extravasation; Start 02/23/17 at 17:15 Dextrose 1,000 ml @ 30 mls/hr Q24H IV Last administered on 02/25/17 05:05; Start 02/23/17 at 17:15; Stop 02/25/17 at 21:49; Status DC Midazolam HCl 100 ml @ 0 mls/hr TITRATE IV Last administered on 02/24/17 06:15 ; Start 02/23/17 at 17:30; Stop 02/24/17 at 14:56; Status DC Vancomycin HCl 1000 mg/Sodium Chloride 250 ml @ 250 mls/hr ONCE ONCE IV Last administered on 02/23/17 19:29; Start 02/23/17 at 18:00; Stop 02/23/17 at 18:59 ; Status DC Chlorhexidine Gluconate (Peridex 0.12% Liq) 15 ml BID@08,20 MT Last administered on 02/26/17 21:34; Start 02/24/17 at 08:00; Stop 02/27/17 at 11:29 ; Status DC Miscellaneous Information SPECIFIC LAB TO BE DRAWN:VANCOMY... ONCE ONCE .XX ; Start 02/27/17 at 17:45; Stop 02/27/17 at 17:46; Status Cancel Propofol 100 ml @ 0 mls/hr TITRATE IV ; Start 02/24/17 at 15:00; Stop 02/26/17 at 10:49; Status DC Miscellaneous Medication (ASP Crit: Infectious disease consult) 1 UNSCH X1 PRN .XX PHARMACY DOCUMENTATION; Start 02/24/17 at 16:00; Stop 02/25/17 at 15:59; Status DC Miscellaneous Medication ([facility] [place] [facility] Information) 1 UNSCH X1 PRN XX PHARMACY DOCUMENTATION; Start 02/24/17 at 16:00; Stop 02/25/17 at 15:59; Status DC Meropenem 1000 mg/ Sodium Chloride 100 ml @ 200 mls/hr Q12H IV Last administered on 02/27/17 05:19; Start 02/24/17 at 17:00; Stop 02/27/17 at 10:58 ; Status DC Piperacillin Sod/ Tazobactam Sod 50 ml @ 100 mls/hr Q6H IV ; Start 02/24/17 at 16:00; Stop 02/24/17 at 16:39; Status DC Piperacillin Sod/ Tazobactam Sod 50 ml @ 100 mls/hr Q6H IV Last administered on 02/25/17 05:57; Start 02/24/17 at 18:00; Stop 02/25/17 at 10:41; Status DC Furosemide (Lasix Inj) 40 mg ONCE ONCE IV PUSH Last administered on 02/25/17 11:43; Start 02/25/17 at 10:45; Stop 02/25/17 at 10:50; Status DC Dexmedetomidine HCl 200 mcg/ Sodium Chloride 52 ml @ 5.9 mls/hr TITRATE PRN IV SEDATION; Start 02/25/17 at 10:45; Stop 02/27/17 at 10:37; Status DC Sodium Chloride 250 ml @ 15 mls/hr ONCE ONCE IV Last administered on 17:51; Start 02/25/17 at 11:30; Stop 02/26/17 at 04:09; Status DC Dexamethasone Sodium Phosphate (Decadron Inj) 4 mg Q6HR IV PUSH Last administered on 02/27/17 05:18; Start 02/25/17 at 18:00; Stop 02/27/17 at 10:39 ; Status DC Acetazolamide Sodium (Diamox Inj) 250 mg Q6H IV PUSH Last administered on 05:31; Start 02/25/17 at 22:00; Stop 02/26/17 at 04:01; Status DC Vancomycin HCl 1000 mg/Sodium Chloride 250 ml @ 250 mls/hr ONCE ONCE IV Last administered on 02/26/17 11:01; Start 02/26/17 at 10:00; Stop 02/26/17 at 10:59 ; Status DC Chlorhexidine Gluconate (Peridex 0.12% Liq) 15 ml BID@08,20 MT ; Start 02/26/17 at 20:00; Stop 02/26/17 at 20:00; Status DC Fentanyl Citrate 250 ml @ 5 mls/hr TITRATE PRN IV SEDATION Last administered on 02/26/17 15:27; Start 02/26/17 at 10:45; Stop 02/27/17 at 10:37; Status DC Chlorhexidine Gluconate (Peridex 0.12% Liq) 15 ml BID@08,20 MT Last administered on 02/27/17 20:00; Start 02/26/17 at 20:00 Midazolam HCl 100 ml @ 2 mls/hr TITRATE PRN IV SEDATION; Start 02/26/17 at 10: 45; Stop 02/27/17 at 10:37; Status DC Dextrose (D50w (Vial) Inj) 50 ml UNSCH PRN IV HYPOGLYCEMIA-SEE COMMENTS; Start 02/26/17 at 11:00 Glucagon (Glucagon Inj) 1 mg UNSCH PRN OTHER HYPOGLYCEMIA-SEE COMMENTS; Start 02/26/17 at 11:00 Insulin Aspart (NovoLOG SUPPLEMENTAL SCALE) 1 Q4HR SQ Last administered on 02/27 08:47; Start 02/26/17 at 12:00; Stop 02/27/17 at 10:39; Status DC Norepinephrine Bitartrate 250 ml @ 7.5 mls/hr TITRATE PRN IV Blood Pressure Management; Start 02/26/17 at 15:30; Stop 02/27/17 at 10:37; Status DC Propofol (Diprivan 200 Mg/20 ml Inj) 50 mg ONCE ONCE IV PUSH ; Start 02/26/17 at 15:23; Stop 02/26/17 at 16:24; Status DC Albuterol/ Ipratropium (Duoneb Neb) 1 ampule Q6HR NEB INH Last administered on 03/02/17 03:34; Start 02/27/17 at 16:00 Insulin Detemir (Levemir Inj) 8 units Q12HR SQ Last administered on 03/02/17 08:27; Start 02/27/17 at 21:00 Albuterol/ Ipratropium (Duoneb Neb) 1 ampule Q6HR NEB INH ; Start 02/27/17 at 16:00; Stop 02/27/17 at 16:00; Status DC Albuterol/ Ipratropium (Duoneb Neb) 1 ampule Q6HR NEB INH ; Start 02/27/17 at 16:00; Stop 02/27/17 at 16:00; Status DC Dexamethasone Sodium Phosphate (Decadron Inj) 4 mg BID IV PUSH Last administered on 02/28/17 08:38; Start 02/27/17 at 21:00; Stop 02/28/17 at 08:43 ; Status DC Insulin Aspart (NovoLOG SUPPLEMENTAL SCALE) 1 ACHS03 SLIDE SCALE SQ Last administered on 03/01/17 23:01; Start 02/27/17 at 11:00 Piperacillin Sod/ Tazobactam Sod 50 ml @ 100 mls/hr Q6H IV Last administered on 03/02/17 11:07; Start 02/27/17 at 11:00 Diatrizoate Meglum/ Diatrizoate Sod ( Gastroview Liq) 18 ml ONCE ONCE PO Last administered on 02/27/17 12:17; Start 02/27/17 at 11:30; Stop 02/27/17 at 11:31; Status DC Vancomycin HCl 1500 mg/Sodium Chloride 515 ml @ 250 mls/hr ONCE ONCE IV Last administered on 02/27/17 14:24; Start 02/27/17 at 15:00; Stop 02/27/17 at 17:03 ; Status DC Mupirocin (Bactroban Nasal 2% Oint) 1 applic Taper BID EACH NARE Last administered on 03/02/17 08:26; Start 02/28/17 at 09:00; Stop 02/24/18 at 08:59 Apixaban (Eliquis) 5 mg BID PO ; Start 02/28/17 at 09:00; Stop 02/28/17 at 09:00 ; Status DC Furosemide (Lasix) 40 mg DAILY PO Last administered on 03/02/17 08:29; Start 02/28/17 at 09:00 Pantoprazole Sodium (Protonix) 40 mg Q24H PO ; Start 02/28/17 at 08:45; Stop at 08:45; Status DC Dexamethasone Sodium Phosphate (Decadron Inj) 4 mg DAILY IV PUSH Last administered on 03/01/17 09:18; Start 02/28/17 at 09:00; Stop 03/02/17 at 08:59 ; Status DC Diltiazem HCl (Cardizem) 30 mg Q6HR PO Last administered on 03/02/17 11:07; Start 02/28/17 at 12:00 Nicotine (Habitrol 14 Mg Patch.24 Hr) 1 patch DAILY T-DERMAL Last administered on 03/02/17 08:27; Start 03/01/17 at 09:00 Miscellaneous Information 1 DAILY T-DERMAL Last administered on 03/02/17 08:34 ; Start 02/28/17 at 18:00 Vancomycin HCl 1500 mg/Sodium Chloride 515 ml @ 257.5 mls/ hr ONCE ONCE IV Last administered on 03/01/17 15:00; Start 03/01/17 at 15:00; Stop 03/01/17 at 16:59; Status DC Acetaminophen/ Hydrocodone Bitart ([place] 5-325 Mg) 1 tab Q6H PRN PO PAIN-NOT RELEIVED BY TYLENOL. Last administered on 03/01/17 22:50; Start 03/01/17 at 12: 00 A/P Assessment and Plan A/P Acute toxic metabolic encephalopathy -resolved History of vascular access with residual left weakness Generalized Deconditioning Chronic opiate use CT brain 02/23/17no acute abnormality continue pain control Acute hypoxemic respiratory failure-resolved COPD Obstructive sleep apnea - CPAP at home. Pneumonia Nasal cannula to maintain saturations greater than equal to 92% Incentive spirometry while awake continue neb treatment stopped Decadron . History of paroxysmal atrial fibrillation on chronic anticoagulation. Currently in sinus rhythm Mild troponin elevation may be due secondary to sepsis and renal failure. Chronic diastolic heart failure Hypertension Severe sepsis 2-D echo 10/24/16ejection fraction 55%. Normal wall motion with no regional wall motion abnormalities. Positive LVH. 2-D echo 02/25/17ejection impression 55-60%. No regional wall motion abnormalities. Serial troponins with mild elevation ~ 0.12 likely secondary to sepsis. Patient is on diltiazem 60 mg by mouth every 8 hours at home. Resumed 30 mg 4 times a day here resume eliquis tomorrow- per GI. continue lasix Chronic protein energy malnutrition Status post cholecystectomy continue protonix Speech therapy evaluated. EGD 02/26 revealed multiple PEEP pyloric gastric erosions as ulcerations with biopsies performed. Liver u/s - liver heterogeneous/echogenetic without ductal dilatation. Status post cholecystectomy. Acute kidney injury overlying chronic kidney disease stage IIIb Monitor intake and output. Monitor electrolyte. monitor renal function. Replace electrolytes as clinically indicated. Polymicrobial bacteremia - Pseudomonas, gram-negative grace,'s group D enterococcus and Proteus Funguria Pertinent cultures 02/23 - blood cultures 2 - Pseudomonas, gram-negative grace, group D enterococcus , Proteus 02/23 - urine - yeast NOS 02/24 - sputum/urine Legionella and pneumococcal antigens no growth/negative 02/25 - blood cultures 2 -no growth continue Zosyn and Levaquin Infectious disease following 2-D echocardiogram revealed no vegetations on heart valves Chronic Apixaban use Acute anemia overlying chronic iron deficiency anemia. Leukocytosis Transfused 2 unit packed red cells since admission s/p EGD with multiple small ulcers in the prepyloric region of the stomach and at the pylorus. continue Protonix ok to resume Apixaban tomorrow- per GI. IDDM Hypoglycemia - resolved continue levemir with accu-check and SSI Patient is on insulin glargine 37 units at home. PROPH: SCDs for DVT prophylaxis. will resume eliquis soon. Discharge Planning needs to stay till Saturday for ID ( ) follow-up and recommendations. briefly d/w (ID) yesterday. Lety Machado MD Mar 02, 2017 11:37
--- NOTE | 2017-03-02 15:07 | HHI.GIFU ---
Subjective Remarks Resting in bed. No active bleeding. Tolerating diet. No n/v. (Esther Wells) Objective Vitals I&O Vital Signs Date Time Temp Pulse Resp B/P (MAP) Pulse Ox O2 Delivery O2 Flow Rate FiO2 03/02/17 12:00 97.2 85 20 148/87 (107) 97 03/02/17 10:59 81 03/02/17 08:00 97.8 82 24 152/66 (94) 98 03/02/17 04:00 97.3 87 20 158/71 (100) 96 03/02/17 00:00 98.2 93 19 157/71 (99) 96 03/01/17 21:43 97 Nasal Cannula 2.00 03/01/17 20:00 97.3 78 20 132/75 (94) 96 03/01/17 16:11 82 03/01/17 16:00 98.4 85 19 160/73 (102) 96 I/O 03/01/17 03/01/17 03/01/17 03/02/17 03/02/17 03/02/17 07:00 15:00 23:00 07:00 15:00 23:00 Intake Total 360 ml 1700 ml 430 ml Balance 360 ml 1700 ml 430 ml Intake Oral 360 ml 1200 ml 380 ml IV Total 500 ml 50 ml # Voids 2 6 4 # Bowel Movements 1 4 1 Laboratory Laboratory Tests Test 03/02/17 07:16 White Blood Count 12.2 Red Blood Count 3.55 Hemoglobin 9.1 Hematocrit 29.2 Mean Corpuscular Volume 82.2 Mean Corpuscular Hemoglobin 25.6 Mean Corpuscular Hemoglobin Concent 31.2 Red Cell Distribution Width 18.9 Platelet Count 245 Mean Platelet Volume 9.1 Neutrophils (%) (Auto) 68.3 Lymphocytes (%) (Auto) 24.6 Monocytes (%) (Auto) 6.9 Eosinophils (%) (Auto) 0.2 Basophils (%) (Auto) 0.0 Neutrophils # (Auto) 8.3 Lymphocytes # (Auto) 3.0 Monocytes # (Auto) 0.8 Eosinophils # (Auto) 0.0 Basophils # (Auto) 0.0 CBC Comment DIFF FINAL Differential Comment Blood Urea Nitrogen 58 Creatinine 1.77 Random Glucose 124 Calcium Level 8.1 Sodium Level 144 Potassium Level 3.4 Chloride Level 103 Carbon Dioxide Level 33.8 Anion Gap 7 Estimat Glomerular Filtration Rate 28 Date/Time Source Procedure Growth Status 02/25/17 03:43 Blood Peripheral Aerobic Blood Culture - Final NO GROWTH IN 5 DAYS Complete 02/25/17 03:43 Blood Peripheral Anaerobic Blood Culture - Final NO GROWTH IN 5 DAYS Complete 02/24/17 18:00 Sputum Endotracheal Gram Stain - Final Complete 02/24/17 18:00 Sputum Endotracheal Sputum Culture - Final LIGHT GROWTH NORMAL RESPIRATORY DAMASO Complete 02/23/17 15:10 Urine Catheterized Urine Legionella Antigen - Final PRESUMPTIVE NEGATIVE FOR LEGIONELLA P... Complete 02/23/17 15:10 Urine Catheterized Urine Streptococcus pneumoniae Antigen (M - Final PRESUMPTIVE NEGATIVE FOR STREPTOCOCCU... Complete Imaging Last Impressions Abdomen/Pelvis CT 02/27/17 0000 Signed Impressions: Service Date/Time: Monday, February 27, 2017 15:24 - CONCLUSION: 1. No evidence for abscess. Duran Mann MD Liver Ultrasound 02/25/17 0000 Signed Impressions: Service Date/Time: Saturday, February 25, 2017 08:05 - CONCLUSION: 1. Echogenic and heterogeneous liver which can be seen with hepatocellular dysfunction. 2. Right kidney slightly small in size. 3. Cholecystectomy. Obinna Lobo MD Chest X-Ray 02/24/17 0000 Signed Impressions: Service Date/Time: Friday, February 24, 2017 10:55 - CONCLUSION: Abnormal right jugular line. Adequate placement of left jugular line.. Obinna Lobo MD Head CT 02/23/17 1400 Signed Impressions: Service Date/Time: Thursday, February 23, 2017 15:20 - CONCLUSION: Unremarkable study. Gregory Wells MD Physical Exam HEENT: Normocephalic; atraumatic; no jaundice. CHEST: Resp even/unlabored. Diminished CARDIAC: RRR ABDOMEN: Soft, nondistended, nontender; no hepatosplenomegaly; bowel sounds are present in all four quadrants. EXTREMITIES: No clubbing, cyanosis, + edema & discoloration BLE SKIN: no rash; no jaundice. DRUM STOCK CLERK: A/Ox 3 (Russell,Esther Plunkett [employer]CIAL LOAN ADMINISTRATOR) Assessment and Plan Plan ASSESSMENT: - Anemia with hemoccult (+) stool. Hx of PUD. (+) Eliquis use at home. S/P EGD (8/22/17)---> the esophagus was otherwise normal, multiple small ulcers were found in the prepyloric region of the stomach and at the pylorus; biopsies were taken. Food residue in the gastric fundus, cardia, and gastric body, normal duodenal mucosa in the bulb and second portion of the duodenum, retroflexion was performed and was normal. Pathology revealed moderate chronic active gastritis with features of ulceration and associated reactive epithelial changes negative for H. pylori. She is tolerating her diet. There is no evidence of active GI bleeding. PPI. HH stable. - Sepsis with leukocytosis/bacteremia/UTI/PNA. Urine cx with silverio glabrata, BCx with PSAE, Providencia, Stuartii, aerococcus viridans. group D enterococcus, proteus mirabilis. Rpt. BCx no growth x 5 days. Zosyn. - Acute respiratory failure with PNA, COPD, LAXMI. Exubated, nebs, abx per CCM - Elevated troponin, CHF per attending. Essentially the same x 3. - HIRAM, Creat 1.77 - Hx PAfib, on chronic anticoagulation at home. Eliquis at home. On hold. - DM per attending. PLAN: - DANIELLE - Continue Protonix - Monitor HH - Transfuse as necessary - Okay to resume Eliquis from GI standpoint - GI will sign off, please reconsult as needed - Pt seen and examined by Dr. Nelson and myself and this note is written on his behalf (Esther Wells) Physician Comments As above, please notify us if needed. (Bharati Nelson MD) Esther Wells Mar 02, 2017 15:07 Bharati Nelson MD Mar 02, 2017 16:31
[2017-03-03] VITALS (8 sets, daily range): BP systolic 125–181; BP diastolic 58–87; PULSE 81–95; RESP 20; TEMP 97.8–98.5; O2SAT 95–98
[2017-03-03] MEDS: INSULIN ASPART SUPPLEMENTAL SCALE SQ SCH ×5 (03:00→21:00)
[2017-03-03] MEDS: RESP: ALBUTEROL 2.5 MG/IPRATROPIUM 0.5 MG NEB (SCH) INH ×2 (03:47→08:16)
[2017-03-03] MEDS: CHLORHEXIDINE GLUCONATE 2 % 1 PACK (2 CLOTHS) TOP SCH (04:00)
[2017-03-03] MEDS: PANTOPRAZOLE SODIUM 40 MG VIAL IV SCH ×2 (04:22→16:04)
[2017-03-03] MEDS: PIPERACIL-TAZO 3.375 GM PREMIX 50 ML IV SCH ×4 (04:22→23:11)
[2017-03-03] MEDS: DILTIAZEM HCL 30 MG TAB PO SCH (05:06)
[2017-03-03] MEDS: REMOVE OLD PATCH T-DERMAL SCH (09:25)
[2017-03-03] MEDS: DOCUSATE SODIUM 50 MG/SENNA 8.6 MG TAB PO SCH ×2 (09:25→21:00)
[2017-03-03] MEDS: FUROSEMIDE 40 MG TAB PO SCH (09:25)
[2017-03-03] MEDS: NICOTINE 14 MG/24 HR PATCH T-DERMAL SCH (09:25)
[2017-03-03] MEDS: INSULIN DETEMIR 100 UNITS/ML VIAL SQ SCH ×2 (09:26→21:00)
[2017-03-03] MEDS: MUPIROCIN 2% OINT 1 APPLIC/GM SYR EACH NARE SCH ×2 (09:26→21:51)
[2017-03-03] MEDS: SODIUM CHLORIDE 0.9% FLUSH 10 ML FLUSH IV FLUSH SCH ×2 (09:27→21:51)
[2017-03-03] MEDS: ACETAMINOPHEN/HYDROcodone 325 MG/5 MG TAB PO PRN ×3 (09:27→21:50)
[2017-03-03] MEDS: CHLORHEXIDINE 0.12% (ORAL KIT) 15 ML CUP MT SCH ×2 (09:31→20:00)
--- NOTE | 2017-03-03 11:15 | HHI.PR ---
Subjective Remarks patient feels good no chest pains or shortness of breath no diarrhea good po no leg pain Objective Vitals Vital Signs Date Time Temp Pulse Resp B/P (MAP) Pulse Ox O2 Delivery O2 Flow Rate FiO2 03/03/17 09:35 93 03/03/17 08:16 95 Nasal Cannula 2.00 03/03/17 08:00 98.4 90 20 174/73 (106) 97 03/03/17 04:00 97.8 84 20 181/76 (111) 96 03/03/17 00:00 97.8 84 20 168/78 (108) 96 03/02/17 22:13 98 Nasal Cannula 2.00 03/02/17 20:00 83 03/02/17 20:00 97.9 82 18 131/72 (91) 97 03/02/17 18:11 96 Nasal Cannula 2.00 03/02/17 12:00 97.2 85 20 148/87 (107) 97 I/O 03/02/17 03/02/17 03/02/17 03/03/17 03/03/17 03/03/17 07:00 15:00 23:00 07:00 15:00 23:00 Intake Total 430 ml 100 ml 610 ml 675 ml Balance 430 ml 100 ml 610 ml 675 ml Intake Oral 380 ml 600 ml 100 ml IV Total 50 ml 100 ml 10 ml 575 ml # Voids 4 4 2 # Bowel Movements 1 0 Result Diagram: 03/02/17 0716 03/03/17 0952 Imaging Last Impressions Abdomen/Pelvis CT 02/27/17 0000 Signed Impressions: Service Date/Time: Monday, February 27, 2017 15:24 - CONCLUSION: 1. No evidence for abscess. Duran Mann MD Liver Ultrasound 02/25/17 0000 Signed Impressions: Service Date/Time: Saturday, February 25, 2017 08:05 - CONCLUSION: 1. Echogenic and heterogeneous liver which can be seen with hepatocellular dysfunction. 2. Right kidney slightly small in size. 3. Cholecystectomy. Obinna Lobo MD Chest X-Ray 02/24/17 0000 Signed Impressions: Service Date/Time: Friday, February 24, 2017 10:55 - CONCLUSION: Abnormal right jugular line. Adequate placement of left jugular line.. Obinna Lobo MD Head CT 02/23/17 1400 Signed Impressions: Service Date/Time: Thursday, February 23, 2017 15:20 - CONCLUSION: Unremarkable study. Gregory Wells MD Objective Remarks awake and alert, NAD anicteric no rales or wheezes regular rhythm abdomen-flabby soft, nontender no calf swelling or tenderness, skin- very dry, skin almost peeling off good peripheral pulses moves all extremities spontaneously- but states not ambulating well Procedures central line placement intubation A/P Assessment and Plan Acute toxic metabolic encephalopathy -resolved History of vascular access with residual left weakness Generalized Deconditioning Chronic opiate use CT brain 02/23/17no acute abnormality continue pain control PT irwin Acute hypoxemic respiratory failure-resolved COPD Obstructive sleep apnea - CPAP at home. Pneumonia Nasal cannula to maintain saturations greater than equal to 92% Incentive spirometry while awake continue neb treatment off steroids History of paroxysmal atrial fibrillation on chronic anticoagulation. Currently in SR Mild troponin elevation may be due secondary to sepsis and renal failure. Chronic diastolic heart failure Hypertension- elevated BP readings Severe sepsis 2-D echo 10/24/16ejection fraction 55%. Normal wall motion with no regional wall motion abnormalities. Positive LVH. 2-D echo 02/25/17ejection impression 55-60%. No regional wall motion abnormalities. Serial troponins with mild elevation ~ 0.12 likely secondary to sepsis. Patient is on diltiazem 60 mg by mouth every 8 hours at home. here on 30 mg 4 times a day here- increase to home dose 60 mg po 8 today 03/02 restart Eliquis 5 mg po bid - 03/02 - cleared by GI continue lasix add Clonidine prn for with parameters Chronic protein energy malnutrition Status post cholecystectomy continue protonix Speech therapy evaluated. EGD 02/26 revealed multiple PEEP pyloric gastric erosions as ulcerations with biopsies performed. Liver u/s - liver heterogeneous/echogenetic without ductal dilatation. Status post cholecystectomy. Acute kidney injury overlying chronic kidney disease stage IIIb Monitor intake and output. - spontaenously voiding Monitor electrolyte. monitor renal function. Replace electrolytes as clinically indicated. Polymicrobial bacteremia - Pseudomonas, gram-negative grace,'s group D enterococcus and Proteus Funguria Pertinent cultures 02/23 - blood cultures 2 - Pseudomonas, gram-negative grace, group D enterococcus , Proteus 02/23 - urine - yeast NOS 02/24 - sputum/urine Legionella and pneumococcal antigens no growth/negative 02/25 - blood cultures 2 -no growth continue Zosyn and Levaquin Infectious disease following 2-D echocardiogram revealed no vegetations on heart valves Chronic Apixaban use Acute anemia overlying chronic iron deficiency anemia. Leukocytosis Transfused 2 unit packed red cells since admission s/p EGD with multiple small ulcers in the prepyloric region of the stomach and at the pylorus. continue Protonix ok to resume Apixaban per GI.started today 03/02 IDDM Hypoglycemia - resolved continue levemir with accu-check and SSI Patient is on insulin glargine 37 units at home. PROPH: SCDs for DVT prophylaxis. on eliquis DRy Skin LE - Lachydrin liberally to both L:E tid Discharge Planning needs to stay till Saturday for ID ( ) follow-up and recommendations. DC planning - will need [facility] Mariah Brown MD Mar 03, 2017 11:15
[2017-03-03] MEDS ORDERED: cloNIDine HCL 0.1 MG TAB PO PRN (11:30)
[2017-03-03] MEDS: LACTIC ACID (AMMONIUM LACTATE) 12% LOTION 225 GM BTL TOPICAL SCH ×2 (12:43→21:51)
[2017-03-03] MEDS ORDERED: VANCOMYCIN 1,500 MG/NS 500 ML IV ONE ×2 (14:00)
[2017-03-03] MEDS: DILTIAZEM HCL 60 MG TAB PO SCH ×2 (15:54→21:50)
[2017-03-03] MEDS: LEVOFLOXACIN 750 MG PREMIX INJ 150 ML IV SCH (17:50)
[2017-03-03] MEDS: APIXABAN 5 MG TABLET PO SCH (21:51)
[2017-03-04] VITALS (8 sets, daily range): BP systolic 128–161; BP diastolic 64–77; PULSE 81–114; RESP 20–22; TEMP 97.2–99.2; O2SAT 95–97
[2017-03-04] MEDS: INSULIN ASPART SUPPLEMENTAL SCALE SQ SCH ×5 (03:35→21:00)
[2017-03-04] MEDS: CHLORHEXIDINE GLUCONATE 2 % 1 PACK (2 CLOTHS) TOP SCH (04:00)
[2017-03-04] MEDS: ACETAMINOPHEN/HYDROcodone 325 MG/5 MG TAB PO PRN ×4 (05:26→23:32)
[2017-03-04] MEDS: PANTOPRAZOLE SODIUM 40 MG VIAL IV SCH ×2 (05:26→16:55)
[2017-03-04] MEDS: DILTIAZEM HCL 60 MG TAB PO SCH ×3 (05:27→23:30)
[2017-03-04] MEDS: PIPERACIL-TAZO 3.375 GM PREMIX 50 ML IV SCH ×2 (05:27→14:03)
[2017-03-04] MEDS: CHLORHEXIDINE 0.12% (ORAL KIT) 15 ML CUP MT SCH ×2 (08:00→20:00)
[2017-03-04] MEDS: SODIUM CHLORIDE 0.9% FLUSH 10 ML FLUSH IV FLUSH SCH ×2 (09:00→23:29)
[2017-03-04] MEDS: DOCUSATE SODIUM 50 MG/SENNA 8.6 MG TAB PO SCH ×2 (10:10→21:00)
[2017-03-04] MEDS: APIXABAN 5 MG TABLET PO SCH ×2 (10:11→23:29)
[2017-03-04] MEDS: FUROSEMIDE 40 MG TAB PO SCH (10:11)
[2017-03-04] MEDS: MUPIROCIN 2% OINT 1 APPLIC/GM SYR EACH NARE SCH ×2 (10:11→23:28)
[2017-03-04] MEDS: REMOVE OLD PATCH T-DERMAL SCH (10:12)
[2017-03-04] MEDS: NICOTINE 14 MG/24 HR PATCH T-DERMAL SCH (10:12)
[2017-03-04] MEDS: LACTIC ACID (AMMONIUM LACTATE) 12% LOTION 225 GM BTL TOPICAL SCH ×2 (10:13→23:30)
[2017-03-04] MEDS: INSULIN DETEMIR 100 UNITS/ML VIAL SQ SCH ×2 (10:19→23:38)
--- NOTE | 2017-03-04 15:28 | HHI.PR ---
Subjective Remarks Complaints of nausea today. She continues to have left leg pain. She continues to work with physical therapy but thus far has slow progression. Objective Vital Signs Date Time Temp Pulse Resp B/P (MAP) Pulse Ox O2 Delivery O2 Flow Rate FiO2 03/04/17 10:38 Nasal Cannula 2.00 03/04/17 08:01 97.2 114 20 160/74 (102) 96 03/04/17 04:00 98.0 100 20 161/70 (100) 95 03/04/17 00:00 97.9 96 20 128/64 (85) 96 03/03/17 22:13 Nasal Cannula 2.00 03/03/17 20:00 98.4 94 20 125/58 (80) 96 03/03/17 20:00 81 03/03/17 16:00 98.4 92 20 135/87 (103) 98 I/O 03/03/17 03/03/17 03/03/17 03/04/17 03/04/17 03/04/17 07:00 15:00 23:00 07:00 15:00 23:00 Intake Total 675 ml 50 ml 370 ml 715 ml Balance 675 ml 50 ml 370 ml 715 ml Intake Oral 100 ml 360 ml IV Total 575 ml 50 ml 10 ml 715 ml # Voids 2 4 # Bowel Movements 0 Result Diagram: 03/02/17 0716 03/03/17 0952 Objective Remarks GENERAL: NAD, A&Ox3 HEAD: Normocephalic. NECK: Supple, trachea midline. No lymphadenopathy. EYES: No scleral icterus. No injection or drainage. CARDIOVASCULAR: Regular rate and rhythm without murmurs, gallops, or rubs. RESPIRATORY: Breath sounds equal bilaterally. No accessory muscle use. GASTROINTESTINAL: Abdomen soft, non-tender, nondistended. MUSCULOSKELETAL: No cyanosis. Edema bilateral lower extremities SKIN: Warm and dry. NEURO: No focal neurological deficitis. A/P Problem List: (1) Elevated troponin I level ICD Code: R74.8 - Abnormal levels of other serum enzymes Status: Acute (2) Leukocytosis ICD Code: D72.829 - Elevated white blood cell count, unspecified Status: Resolved (3) Acute respiratory failure ICD Code: J96.00 - Acute respiratory failure, unspecified whether with hypoxia or hypercapnia Status: Acute (4) Altered mental status ICD Code: R41.82 - Altered mental status, unspecified Status: Acute Assessment and Plan Assessment and Plan 72-year-old female admitted secondary to toxic metabolic encephalopathy and sepsis with bacteremia, a fungal UTI, and pneumonia. Acute toxic metabolic encephalopathy Resolved Severe sepsis Resolved History of vascular access with residual left weakness Generalized Deconditioning Continue PT Will need alf facility at discharge Acute hypoxemic respiratory failure Resolved COPD Obstructive sleep apnea Continue oxygen supplementation as needed CPAP at night Incentive spirometry while awake Continue nebulized treatments as needed History of paroxysmal atrial fibrillation Continue anticoagulation Chronic diastolic heart failure Left ventricular hypertrophy EF is approximately 55% Follow clinically No change to baseline treatments Hypertension Follow blood pressures Continue current blood pressure treatments Continue when necessary clonidine Continue diltiazem Acute kidney injury chronic kidney disease stage IIIb Follow renal function Monitor electrolytes Polymicrobial bacteremia Funguria Cultures show Pseudomonas, gram-negative grace,'s group D enterococcus and Proteus in blood Continue Zosyn and Levaquin Infectious disease following No vegetations on echo Gastric ulcers Continue Protonix Follow clinically Diabetes mellitus Continue Levemir Insulin sliding scale Diabetic diet Follow blood sugars Chronic debility Physical therapy Continue Eliquis DVT prophylaxis Angel [place] planning Plan for alf facility at discharge Problem Qualifiers (1) Leukocytosis: (2) Acute respiratory failure: (3) Altered mental status: Kerwin Quintero MD Mar 04, 2017 15:28
--- NOTE | 2017-03-04 16:31 | HHI.IDPN ---
Subjective Subjective Remarks Patient is a 72-year-old female brought into the hospital after she was found poorly responsive. Patient has known COPD, sleep apnea, and he uses a home CPAP machine. Apparently the patient was sleeping most of the day one day prior to admission, and he did not eat much that day. Her niece was apparently with her and when the son came to see her she was quite lethargic although she did wake up. However she did not really improve much, and even back was called , and they gave her Narcan without any response. In the emergency room she continued to be obtunded, and was moaning a lot. She ended up getting intubated for airway protection. Her glucose was 44 and she was given an amp of 250. There was no fever or chills prior to admission. Her chest x-ray showed left lower lobe infiltrate with some right perihilar opacities. She was admitted with severe sepsis, and her white count was 22,000, and she was hypotensive requiring pressors. Since admission highest temperature being 99. Her urinalysis was fairly unremarkable. 2 blood cultures were done on admission , and they are now reported as growing gram-negative grace. Notes reviewed Doing well Temps ok Not SOB BC with different bacteria - PSAE, Providencia, Proteus, aerococcus and Enterococcus No new (+) BC CT A/P negative for infection WBC better Antibiotics Zosyn Levaquin Vanco dose 02/26 Past Medical History Paroxysmal atrial fibrillation on chronic anticoagulation Obstructive sleep apnea on home CPAP Diabetes mellitus Hypertension Hyperlipidemia Stroke with residual left-sided hemiparesis COPD Past Surgical History Hernia repair Appendectomy Cholecystectomy Right hip replacement Allergies: Coded Allergies: *MDRO Multi-Drug Resistant Organism (Verified Adverse Reaction, Unknown, ) MRSA PCR Screen POSITIVE - 10/24/2016 MRSA (sputum)-10/24/16 Objective . Vital Signs Date Time Temp Pulse Resp B/P (MAP) Pulse Ox O2 Delivery O2 Flow Rate FiO2 03/04/17 12:01 99.2 107 20 158/69 (98) 97 03/04/17 10:38 Nasal Cannula 2.00 03/04/17 08:20 81 03/04/17 08:01 97.2 114 20 160/74 (102) 96 03/04/17 04:00 98.0 100 20 161/70 (100) 95 03/04/17 00:00 97.9 96 20 128/64 (85) 96 03/03/17 22:13 Nasal Cannula 2.00 03/03/17 20:00 98.4 94 20 125/58 (80) 96 03/03/17 20:00 81 . Laboratory Tests Test 03/03/17 09:52 Creatinine 1.62 MG/DL Estimat Glomerular Filtration Rate 31 ML/MIN Imaging Last Impressions Chest X-Ray 02/24/17 0000 Signed Impressions: Service Date/Time: Friday, February 24, 2017 03:15 - CONCLUSION: 1. Bibasilar airspace disease actually appears slightly worse. There may be associated effusions. 2. Stable position of life support tubes including a right IJ central venous catheter with the tip tracking cephalad towards the head. Timothy Pascual MD Head CT 02/23/17 1400 Signed Impressions: Service Date/Time: Thursday, February 23, 2017 15:20 - CONCLUSION: Unremarkable study. Gregory Wells MD Physical Exam GENERAL: awakens easily, NAD SKIN: Warm and dry. No generalized rash HEAD: Atraumatic. Normocephalic. No temporal wasting, or tenderness. EYES: [place] conjunctiva. No petechia or hemorrhage. No scleral icterus. No injection or drainage. EARS, NOSE AND THROAT: Nose without bleeding or purulent nasal discharge. NECK: Trachea midline. Supple and not tender, no meningeal signs. CARDIOVASCULAR: Regular rate and rhythm. No murmurs, rubs or gallops heard RESPIRATORY: Coarse breath sounds bilaterally, decreased at bases ABDOMEN: Soft, obese, nondistended, not tender. Has midline ventral hernia. Bowel sounds present and normoactive. No guarding. No rebound. EXTREMITIES: No clubbing, or cyanosis. Has skin changes in both legs c/w chronic leg edema and venous stasis, decreasing edema. NEUROLOGICAL: Non-focal PSYCHIATRIC: Cooperative LINE: No evidence of infection : Cuellar cath in place with no evidence of infection Assessment & Plan Remarks IMPRESSION Polymicrobial sepsis, ?source, usually cases with polymicrobial are intraabdominal, but exam is unremarkable Possible aspiration PNA Respiratory failure Known COPD, sleep apnea CKD Morbid obesity Mild elevation of LFTs Leukocytosis, improving RECOMMENDATION Stop Zosyn Continue Levaquin change to po Stop Vanco PO Augmentin Give 10 more days of oral Abx She is clinically doing well from ID standpoint Marlene Calderon MD Mar 04, 2017 16:30
[2017-03-04] MEDS ORDERED: LEVOFLOXACIN 750 MG TAB PO SCH (18:00)
[2017-03-04] MEDS: AMOXICILLIN/CLAVULANATE K 500 MG TAB PO SCH ×2 (18:00→23:31)
[2017-03-05] VITALS: BP 121/61; PULSE 97; RESP 18; TEMP 98.1; O2SAT 97
[2017-03-05] MEDS: INSULIN ASPART SUPPLEMENTAL SCALE SQ SCH ×3 (03:00→11:00)
[2017-03-05 04:00] VITALS: BP 131/65; PULSE 96; RESP 21; TEMP 97.3; O2SAT 96
[2017-03-05] MEDS: CHLORHEXIDINE GLUCONATE 2 % 1 PACK (2 CLOTHS) TOP SCH (04:00)
[2017-03-05] MEDS: DILTIAZEM HCL 60 MG TAB PO SCH ×2 (05:29→13:47)
[2017-03-05] MEDS: AMOXICILLIN/CLAVULANATE K 500 MG TAB PO SCH ×2 (05:30→13:47)
[2017-03-05] MEDS: PANTOPRAZOLE SODIUM 40 MG VIAL IV SCH (05:30)
[2017-03-05] MEDS: ACETAMINOPHEN/HYDROcodone 325 MG/5 MG TAB PO PRN (05:36)
[2017-03-05 07:22] VITALS: O2SAT 96
[2017-03-05 08:00] VITALS: PULSE 90
[2017-03-05] MEDS: CHLORHEXIDINE 0.12% (ORAL KIT) 15 ML CUP MT SCH (08:00)
[2017-03-05 08:01] VITALS: BP 140/62; PULSE 98; RESP 20; TEMP 97.3; O2SAT 96
[2017-03-05] MEDS: REMOVE OLD PATCH T-DERMAL SCH (09:00)
[2017-03-05 10:12] LABS: AUTOMATED NEUTROPHIL # 22.1 TH/MM3 (1.8-7.7); BASOPHIL % 0.2 % (0.0-2.0); HEMATOCRIT 31.1 % (35.0-46.0); HEMO FLAGS DIFF FINAL; LYMPH % 10.4 % (9.0-44.0); LYMPHOCYTE # 2.7 TH/MM3 (1.0-4.8); MEAN CELL VOLUME 83.7 FL (80.0-100.0); MEAN CORPUSCULAR HEMOGLOBIN 25.2 PG (27.0-34.0); MEAN CORPUSCULAR HGB CONC 30.1 % (32.0-36.0); MONO % 4.6 % (0.0-8.0); NEUT % 84.8 % (16.0-70.0); PLATELET COUNT 474 TH/MM3 (150-450); RED BLOOD COUNT 3.72 MIL/MM3 (4.00-5.30); RED CELL DISTRIBUTION WIDTH 19.4 % (11.6-17.2); WHITE BLOOD COUNT 26.1 TH/MM3 (4.0-11.0)
[2017-03-05] MEDS: NICOTINE 14 MG/24 HR PATCH T-DERMAL SCH (10:31)
[2017-03-05] MEDS: DOCUSATE SODIUM 50 MG/SENNA 8.6 MG TAB PO SCH (10:31)
[2017-03-05] MEDS: FUROSEMIDE 40 MG TAB PO SCH (10:32)
[2017-03-05] MEDS: SODIUM CHLORIDE 0.9% FLUSH 10 ML FLUSH IV FLUSH SCH (10:33)
[2017-03-05] MEDS: MUPIROCIN 2% OINT 1 APPLIC/GM SYR EACH NARE SCH (10:33)
[2017-03-05] MEDS: APIXABAN 5 MG TABLET PO SCH (10:34)
[2017-03-05] MEDS: LACTIC ACID (AMMONIUM LACTATE) 12% LOTION 225 GM BTL TOPICAL SCH (10:36)
[2017-03-05] MEDS: INSULIN DETEMIR 100 UNITS/ML VIAL SQ SCH (10:39)
[2017-03-05 10:42] LABS: ALKALINE PHOSPHATASE 132 U/L (45-117); ALT (GPT) 14 U/L (10-53); ANION GAP 9 MEQ/L (5-15); AST (GOT) 12 U/L (15-37); BICARBONATE 34.9 MEQ/L (21.0-32.0); BLOOD UREA NITROGEN 40 MG/DL (7-18); CHLORIDE 100 MEQ/L (98-107); GLOMERULAR FILTRATION RATE 26 ML/MIN (>89); POTASSIUM 3.5 MEQ/L (3.5-5.1); SODIUM (NA) 144 MEQ/L (136-145); TOTAL BILIRUBIN ADULT 0.4 MG/DL (0.2-1.0)
[2017-03-05] MEDS ORDERED: LACTTAB8 PO (10:43)
[2017-03-05] MEDS ORDERED: HYDR-3516 PO (10:43)
[2017-03-05] MEDS ORDERED: LEVA750T9 PO (10:43)
[2017-03-05] MEDS ORDERED: AUGM500T7 PO (10:43)
[2017-03-05] MEDS ORDERED: ALBU0.08 INH (10:43)
[2017-03-05] MEDS ORDERED: NICO7DIS2 T-DERMAL (10:43)
[2017-03-05 12:01] VITALS: BP 146/65; PULSE 95; RESP 19; TEMP 97.4; O2SAT 98
--- NOTE | 2017-03-05 15:01 | HHI.DS ---
Discharge Summary Admission Date Feb 23, 2017 at 15:47 Discharge Date: Mar 05, 2017 Admitting Diagnosis altered mental status, sepsis, anemia, hypoglycemia (1) Altered mental status ICD Code: R41.82 - Altered mental status, unspecified Diagnosis: Principal Status: Acute (2) Leukocytosis ICD Code: D72.829 - Elevated white blood cell count, unspecified Diagnosis: Principal Status: Resolved (3) Acute respiratory failure ICD Code: J96.00 - Acute respiratory failure, unspecified whether with hypoxia or hypercapnia Diagnosis: Principal Status: Acute (4) Sepsis ICD Code: A41.9 - Sepsis, unspecified organism Diagnosis: Principal Status: Resolved (5) Encephalopathy ICD Code: G93.40 - Encephalopathy, unspecified Diagnosis: Principal Status: Acute Procedures central line placement intubation Brief History - From Admission 72-year-old female with past medical history of hypertension, IDDM , obesity, Sleep apnea on home C Pap, hyperlipidemia, prior stroke with residual left side weakness, COPD who presents to [facility] with history of altered mental status x2 days. Her son states yesterday she slept most of the day yesterday; did not eat all day.. She had stayed home with her neice all day but when her son came home from work he was able to arouse her and gave her some icecream and Lantus 37 units. EVAC administered Narcan without response. Upon arrival ED physician states she was moaning to noxious stimuli and required intubation for airway protection. Glucose was 44 and she was given amp of D50. She was afebrile but findings were consistent with severe sepsis including white blood cell count 22, chest x-ray with left lower lobe and right perihilar opacities. UA had trace LE and [address] brain showed no acute abnormality. She was given azithromycin, Zosyn in the emergency department. Blood cultures and urine cultures have been obtained. She was started on propofol initially for sedation but became hypotensive so was given 2 L normal saline bolus and started on a Versed drip. She has been recently admitted 10/24/16 through 11/07. She had been sent to [facility] emergency Department for atrial fibrillation with RVR rate in the 120s and then subsequently was discovered to have hypercapnic respiratory failure. She had also been treated for MRSA pneumonia. Unable to obtain further review of systems from patient because she is intubated. CBC/BMP: 03/05/17 0937 03/05/17 0937 Significant Findings Laboratory Tests Test 03/03/17 09:52 03/05/17 09:37 Creatinine 1.62 MG/DL (0.50-1.00) 1.90 MG/DL (0.50-1.00) Estimat Glomerular Filtration Rate 31 ML/MIN (>89) 26 ML/MIN (>89) White Blood Count 26.1 TH/MM3 (4.0-11.0) Red Blood Count 3.72 MIL/MM3 (4.00-5.30) Hemoglobin 9.4 GM/DL (11.6-15.3) Hematocrit 31.1 % (35.0-46.0) Mean Corpuscular Hemoglobin 25.2 PG (27.0-34.0) Mean Corpuscular Hemoglobin Concent 30.1 % (32.0-36.0) Red Cell Distribution Width 19.4 % (11.6-17.2) Platelet Count 474 TH/MM3 (150-450) Neutrophils (%) (Auto) 84.8 % (16.0-70.0) Neutrophils # (Auto) 22.1 TH/MM3 (1.8-7.7) Monocytes # (Auto) 1.2 TH/MM3 (0-0.9) Blood Urea Nitrogen 40 MG/DL (7-18) Random Glucose 129 MG/DL (74-106) Albumin 1.8 GM/DL (3.4-5.0) Alkaline Phosphatase 132 U/L (45-117) Aspartate Amino Transf (AST/SGOT) 12 U/L (15-37) Carbon Dioxide Level 34.9 MEQ/L (21.0-32.0) PE at Discharge awake and alert, NAD anicteric no rales or wheezes regular rhythm abdomen-flabby soft, nontender no calf swelling or tenderness, skin- very dry, skin almost peeling off good peripheral pulses moves all extremities spontaneously- but states not ambulating well Hospital Course Mrs. Mackey is a 72-year-old female. She was brought in secondary to altered mental status for 2 days. When she came in she was unresponsive and only moaning to noxious stimuli. Glucose at that time was 44. She had been continuing her insulin despite compromised by mouth intake. She was found to have severe sepsis in the left lower lobe and right perihilar infiltrates indicative of pneumonia. Azithromycin and Zosyn were provided patient has improved through time. Intubation was performed and patient had hypotension with propofol she also had A. fib RVR which is also been controlled and resolved. She is extubated now and is doing well off the vent. However her musculoskeletal status is compromised and she has global debility. She will need [facility] facility at time of discharge. Her functional status prior to admit was not good to begin with. Medically clear for discharge to [facility] facility to focus on physical rehabilitation. Continue Augmentin and Levaquin for 10 more days per infectious disease physician. Pt Condition on Discharge: Stable Discharge Disposition: Discharge to SNF Discharge Time: > 30 minutes Discharge Instructions DIET: Follow Instructions for: As Tolerated, No Restrictions Activities you can perform: Regular-No Restrictions Follow up Referrals: PCP Follow-up - 2 Weeks New Medications: Lactobacillus Acidophilus (Lactobacillus Acidophilus) 1 Billion Cell Tab 1 TAB PO TIDAC for Nutritional Supplement, #45 TAB 0 Refills Nicotine Patch (Nicotine Patch) 7 Mg/24 Hr Patch 7 MG T-DERMAL DAILY for Smoking Cessation, #10 PATCH 0 Refills Albuterol Neb (Albuterol Neb) 2.5 Mg/3 Ml Neb 2.5 MG INH Q6HR NEB PRN for SOB/WHEEZING, #1 NEBULE Amoxicillin-Clavulanate (Augmentin) 500-125 mg Tab 500 MG PO Q8HR for Infection, #30 TAB Levofloxacin (Levaquin) 750 Mg Tablet 750 MG PO Q48H for Infection, #5 TAB Changed Medications: Hydrocodone-Acetaminophen (Hydrocodone-Acetaminophen) 5-325 mg Tab 1 TAB PO Q6HR PRN for PAIN SCALE 1 TO 10, #30 TAB 0 Refills (Changed from: Q4H; 20) Continued Medications: Apixaban (Eliquis) 5 Mg Tab 5 MG PO BID for Blood Clot Prevention, #60 TAB Bisacodyl Supp (Bisac-Evac Supp) 10 Mg Supp 10 MG RECTAL DAILY PRN for CONSTIPATION, #30 SUPP Diltiazem (Cardizem) 30 Mg Tab 60 MG PO Q8HR for A-fib, #90 TAB Furosemide (Furosemide) 40 Mg Tab 40 MG PO DAILY for edema, #30 TAB 0 Refills Pantoprazole (Pantoprazole) 40 Mg Tab 40 MG PO Q24H for Reflux, #30 TAB Sennosides-Docusate Sodium (Senna Plus 8.6-50 mg) 1 Tab Tab 1 TAB PO DAILY for Constipation, #30 TAB Kerwin Quintero MD Mar 05, 2017 15:01
--- NOTE | 2017-03-05 16:34 | PD.WCN.NOT ---
Wound Consult Additional Information: Patient not seen. Attempted to see patient. RN Holli had just changed dressing and patient became agitated. She is being discharged today. Gladis Sr [facility] Mar 05, 2017 16:34
== END 2017-03-05 15:38 | DRG 871 ==
LOC: NEPC 13:34 → NEDA 15:47 → HIME 18:00 → N04B 02-28 20:32
PROVIDERS: ADMIT Emergency Medicine; ATTEND Hospitalist
PROC: 0BH18EZ Insertion of Endotracheal Airway into Trachea, Via Natural or Artificial Opening Endoscopic (ICD-10-PCS; principal; 2017-02-23)
PROC: 5A1945Z Respiratory Ventilation, 24-96 Consecutive Hours (ICD-10-PCS; 2017-02-23)
PROC: 05HM33Z Insertion of Infusion Device into Right Internal Jugular Vein, Percutaneous Approach (ICD-10-PCS; 2017-02-23)
PROC: 30233N1 Transfusion of Nonautologous Red Blood Cells into Peripheral Vein, Percutaneous Approach (ICD-10-PCS; 2017-02-23)
PROC: 05HN33Z Insertion of Infusion Device into Left Internal Jugular Vein, Percutaneous Approach (ICD-10-PCS; 2017-02-24)
PROC: 0DB68ZX Excision of Stomach, Via Natural or Artificial Opening Endoscopic, Diagnostic (ICD-10-PCS; 2017-02-26)
DX: A41.59 Other Gram-negative sepsis (principal); G92 Toxic encephalopathy; J96.01 Acute respiratory failure with hypoxia; N17.9 Acute kidney failure, unspecified; J18.9 Pneumonia, unspecified organism; I13.0 Hypertensive heart and chronic kidney disease with heart failure and stage 1 through stage 4 chronic kidney disease, or unspecified chronic kidney disease; J44.0 Chronic obstructive pulmonary disease with (acute) lower respiratory infection; E46 Unspecified protein-calorie malnutrition; I50.32 Chronic diastolic (congestive) heart failure; I69.354 Hemiplegia and hemiparesis following cerebral infarction affecting left non-dominant side; B37.49 Other urogenital candidiasis; A41.81 Sepsis due to Enterococcus; I48.0 Paroxysmal atrial fibrillation; A41.52 Sepsis due to Pseudomonas; A41.89 Other specified sepsis; A41.4 Sepsis due to anaerobes; R65.20 Severe sepsis without septic shock; G47.33 Obstructive sleep apnea (adult) (pediatric); N18.3 Chronic kidney disease, stage 3 (moderate); K25.9 Gastric ulcer, unspecified as acute or chronic, without hemorrhage or perforation; K29.50 Unspecified chronic gastritis without bleeding; D50.9 Iron deficiency anemia, unspecified; E11.649 Type 2 diabetes mellitus with hypoglycemia without coma; E78.5 Hyperlipidemia, unspecified; E66.01 Morbid (severe) obesity due to excess calories; Z72.0 Tobacco use; Z68.39 Body mass index [BMI] 39.0-39.9, adult; M79.605 Pain in left leg; R53.81 Other malaise; L89.322 Pressure ulcer of left buttock, stage 2; L89.319 Pressure ulcer of right buttock, unspecified stage; Z79.01 Long term (current) use of anticoagulants; Z71.3 Dietary counseling and surveillance; Z79.4 Long term (current) use of insulin
CPT/HCPCS: 31500; 36430; 36556; 36600; 70450; 71010; 74176; 76705; 76937; 80048; 80053; 80202; 80307; 81001; 82533; 82550; 82565; 82805; 82948; 83605; 83735; 83880; 84100; 84484; 85007; 85014; 85018; 85025; 85027; 85610; 85730; 86850; 86900; 86901; 86920; 87040; 87070; 87077; 87086; 87186; 87205; 87449; 87641; 88305; 88312; 93005; 93308; 94002; 94003; 94150; 94640; 94664; 96374; 96375; C9113; J0330; J1100; J1120; J1815; J1940; J1956; J2185; J2250; J2405; J2543; J3010; J3370; J7030; J7040; J7050; P9016; Q9963

== ENCOUNTER 2017-04-10 14:57 | Inpatient (IN) | payer OTHER, MEDICARE ==
[2017-04-10] VITALS (11 sets, daily range): BP systolic 81–157; BP diastolic 44–74; PULSE 82–140; RESP 14–36; TEMP 98.5–98.7; O2SAT 93–100
[~2017-04-10] VITALS: Ht 162.6 cm; Wt 118.8 kg
[~2017-04-10 14:57] MED LIST changes: +ALBU0.08 INH; +AUGM500T7 PO; +LACTTAB8 PO; +LEVA750T9 PO; +NICO7DIS2 T-DERMAL
[2017-04-10] MEDS ORDERED: ETOMIDATE 20 MG/10 ML VIAL ONE (15:04)
[2017-04-10] MEDS ORDERED: SUCCINYLCHOLINE CHLORIDE 200 MG/10 ML VIAL ONE (15:06)
[2017-04-10] MEDS ORDERED: PROPOFOL 1000 MG/100 ML INJ 100 ML ONE (15:23)
[2017-04-10] MEDS ORDERED: CEFEPIME INJ 2,000 MG in SODIUM CHLORIDE 0.9% INJ 100 ML IV STA (15:25)
[2017-04-10] MEDS ORDERED: VANCOMYCIN INJ 1,000 MG in SODIUM CHLOR 0.9% 250 ML INJ 250 ML IV STA (15:25)
[2017-04-10 15:32] LABS: AUTOMATED NEUTROPHIL # 12.7 TH/MM3 (1.8-7.7); BASOPHIL % 0.1 % (0.0-2.0); EOSINOPHIL # 0.2 TH/MM3 (0-0.4); EOSINOPHIL % 0.9 % (0.0-4.0); HEMATOCRIT 27.3 % (35.0-46.0); LYMPH % 19.1 % (9.0-44.0); LYMPHOCYTE # 3.3 TH/MM3 (1.0-4.8); MEAN CELL VOLUME 84.1 FL (80.0-100.0); MEAN CORPUSCULAR HEMOGLOBIN 26.5 PG (27.0-34.0); MEAN CORPUSCULAR HGB CONC 31.5 % (32.0-36.0); MONO % 5.8 % (0.0-8.0); NEUT % 74.1 % (16.0-70.0); PLATELET COUNT 729 TH/MM3 (150-450); RED BLOOD COUNT 3.25 MIL/MM3 (4.00-5.30); RED CELL DISTRIBUTION WIDTH 20.3 % (11.6-17.2); WHITE BLOOD COUNT 17.1 TH/MM3 (4.0-11.0)
[2017-04-10 15:36] LABS: HEMO FLAGS AUTO DIFF
--- NOTE | 2017-04-10 15:39 | PD ---
HPI Chief Complaint: Altered Mental Status Time Seen by Provider: 15:03 Travel History International Travel<30 days: No Contact w/Intl Traveler<30days: No Traveled to known affect area: No History of Present Illness HPI 72 y/o female presents with emesis all over her chest and altered mental status. She presents on a nonrebreather by ambulance and had a normal Accu- Chek. Patient cannot provide any history. She was last seen normal yesterday and lives at home with her sons. Report was they awoke and found her like this. Patient cannot provide me any details. PFSH Past Medical History Narrative Medical By records Arthritis: Yes Autoimmune Disease: No Cancer: No Cardiovascular Problems: Yes High Cholesterol: Yes Cerebrovascular Accident: Yes (LEFT SIDED WEAKNESS 2004) Diabetes: Yes Patient Takes Glucophage: No Diminished Hearing: No Endocrine: No Genitourinary: No Headaches: Yes Hypertension: Yes Musculoskeletal: Yes Respiratory: Yes Sleep Apnea: Yes (cpap at night) Tetanus Vaccination: > 5 Years Influenza Vaccination: No ?: Not Menopausal: Yes : 6 Para: 4 Miscarriage: 2 Past Surgical History Narrative Surgical By records Abdominal Surgery: Yes ("INTESTINAL HERNIA") Appendectomy: Yes Cholecystectomy: Yes Joint Replacement: Yes (RIGHT HIP 1999) Other Surgery: Yes Social History Narrative Social History By records Alcohol Use: No Tobacco Use: Yes ("snuff powder" since a child) Substance Use: No Allergies-Medications (Allergen,Severity, Reaction): Coded Allergies: *MDRO Multi-Drug Resistant Organism (Verified Adverse Reaction, Unknown, ) MRSA PCR Screen POSITIVE - 10/24/2016 MRSA (sputum)-10/24/16 Reported Meds & Prescriptions Reported Meds & Active Scripts Active Albuterol Neb (Albuterol Sulfate) 2.5 Mg/3 Ml Neb 2.5 Mg INH Q6HR NEB PRN Lactobacillus Acidophilus 1 Billion Cell Tab 1 Tab PO TIDAC Hydrocodone-Acetaminophen 5-325 mg Tab 1 Tab PO Q6HR PRN Furosemide 40 Mg Tab 40 Mg PO DAILY Pantoprazole (Pantoprazole Sodium) 40 Mg Tab 40 Mg PO Q24H Cardizem (Diltiazem HCl) 30 Mg Tab 60 Mg PO Q8HR Eliquis (Apixaban) 5 Mg Tab 5 Mg PO BID Review of Systems ROS Limitations: Clinical Condition Physical Exam Exam Limitations: Clinical Condition Narrative GENERAL: Ill-appearing 85 kg female patient. SKIN: Warm and dry. Emesis noted on sure HEAD: Normocephalic and atraumatic. EYES: No injection or drainage. Pinpoint pupils ENT: No nasal drainage noted. NECK: Supple, trachea midline. CARDIOVASCULAR: irregular rate and rhythm RESPIRATORY: Coarse bilaterally. No accessory muscle use. GASTROINTESTINAL: Abdomen nondistended. NEUROLOGICAL: Patient moans to painful stimuli, opens eyes to painful stimuli, moves extremities to painful stimuli Data Data Last Documented VS Vital Signs Date Time Temp Pulse Resp B/P (MAP) Pulse Ox O2 Delivery O2 Flow Rate FiO2 04/10/17 16:11 93 20 81/44 (56) 100 Ventilator 100 04/10/17 15:12 15.00 04/10/17 14:59 98.6 Orders Orders Electrocardiogram (04/10/17 15:03) Complete Blood Count With Diff (04/10/17 15:03) Comprehensive Metabolic Panel (04/10/17 15:03) Prothrombin Time / Inr (Pt) (04/10/17 15:03) Act Partial Throm Time (Ptt) (04/10/17 15:03) Lactic Acid Sepsis Protocol (04/10/17 15:03) Magnesium (Mg) (04/10/17 15:03) Phosphorus (Po4) (04/10/17 15:03) Lipase (04/10/17 15:03) Ckmb (Isoenzyme) Profile (04/10/17 15:03) Troponin I (04/10/17 15:03) Urinalysis - C+S If Indicated (04/10/17 15:03) Influenzae A/B Antigen (04/10/17 15:03) Blood Culture (04/10/17 15:03) Chest, Single Ap (04/10/17 15:03) Arterial Blood Gas (Abg) (04/10/17 15:03) Blood Glucose (04/10/17 15:03) Ecg Monitoring (04/10/17 15:03) Iv Access Insert/Monitor (04/10/17 15:03) Oximetry (04/10/17 15:03) Oxygen Administration (04/10/17 15:03) B-Type Natriuretic Peptide (04/10/17 15:03) Etomidate Inj (Amidate Inj) (04/10/17 15:04) Succinylcholine Inj (Quelicin Inj) (04/10/17 15:06) Propofol 1000 Mg/100 Ml Inj (Diprivan 10 (04/10/17 15:23) Vancomycin Inj (Vancomycin Inj) (04/10/17 15:25) Cefepime Inj (Maxipime Inj) (04/10/17 15:25) Etomidate Inj (Amidate Inj) (04/10/17 15:45) Succinylcholine Inj (Quelicin Inj) (04/10/17 15:45) Propofol 1000 Mg/100 Ml Inj (Diprivan 10 (04/10/17 15:45) ^ Infusion (04/10/17 15:39) RASS (04/10/17 15:39) Neurological Rass Scale PARK.Q2H (04/10/17 15:39) Insert Ng Tube (04/10/17 15:39) Midazolam 100 Mg/100 Ml Inj (Versed Inj) (04/10/17 16:15) Neurological Rass Scale Q30MX2,Q2HX4,Q4H (04/10/17 16:11) Sodium Chlor 0.9% 1000 Ml Inj (Ns 1000 M (04/10/17 16:15) Urine Culture (04/10/17 15:55) Admit Order (Ed Use Only) (04/10/17 16:17) Labs Laboratory Tests Test 04/10/17 15:15 04/10/17 15:55 04/10/17 16:05 White Blood Count 17.1 TH/MM3 Red Blood Count 3.25 MIL/MM3 Hemoglobin 8.6 GM/DL Hematocrit 27.3 % Mean Corpuscular Volume 84.1 FL Mean Corpuscular Hemoglobin 26.5 PG Mean Corpuscular Hemoglobin Concent 31.5 % Red Cell Distribution Width 20.3 % Platelet Count 729 TH/MM3 Mean Platelet Volume 8.3 FL Neutrophils (%) (Auto) 74.1 % Lymphocytes (%) (Auto) 19.1 % Monocytes (%) (Auto) 5.8 % Eosinophils (%) (Auto) 0.9 % Basophils (%) (Auto) 0.1 % Neutrophils # (Auto) 12.7 TH/MM3 Lymphocytes # (Auto) 3.3 TH/MM3 Monocytes # (Auto) 1.0 TH/MM3 Eosinophils # (Auto) 0.2 TH/MM3 Basophils # (Auto) 0.0 TH/MM3 CBC Comment AUTO DIFF Differential Total Cells Counted 100 Neutrophils % (Manual) 53 % Band Neutrophils % 26 % Lymphocytes % 14 % Monocytes % 4 % Neutrophils # (Manual) 14.0 TH/MM3 Metamyelocytes 2 % Myelocytes 1 % Differential Comment FINAL DIFF MANUAL Platelet Estimate HIGH Platelet Morphology Comment NORMAL Spherocytes 1+ Ovalocytes Stomatocytes 2+ Prothrombin Time 17.4 SEC Prothromb Time International Ratio 1.5 RATIO Activated Partial Thromboplast Time 49.4 SEC Blood Urea Nitrogen 91 MG/DL Creatinine 3.65 MG/DL Random Glucose 139 MG/DL Total Protein 7.4 GM/DL Albumin 1.7 GM/DL Calcium Level 7.2 MG/DL Phosphorus Level 7.0 MG/DL Magnesium Level 1.7 MG/DL Alkaline Phosphatase 331 U/L Aspartate Amino Transf (AST/SGOT) 27 U/L Alanine Aminotransferase (ALT/SGPT) 12 U/L Total Bilirubin 1.0 MG/DL Sodium Level 130 MEQ/L Potassium Level 4.8 MEQ/L Chloride Level 88 MEQ/L Carbon Dioxide Level 31.9 MEQ/L Anion Gap 10 MEQ/L Estimat Glomerular Filtration Rate 12 ML/MIN Lactic Acid Level 1.9 mmol/L Protein Corrected Calcium 7.1 MG/DL Total Creatine Kinase 35 U/L Troponin I 0.07 NG/ML B-Type Natriuretic Peptide 126 PG/ML Lipase 37 U/L Urine Color YELLOW Urine Turbidity CLOUDY Urine pH 8.0 Urine Specific Lorida 1.015 Urine Protein 100 mg/dL Urine Glucose (UA) NEG mg/dL Urine Ketones NEG mg/dL Urine Occult Blood MOD Urine Nitrite NEG Urine Bilirubin NEG Urine Urobilinogen LESS THAN 2.0 MG/DL Urine Leukocyte Esterase LARGE Urine RBC /hpf Urine WBC /hpf Urine WBC Clumps OCC Urine Bacteria MANY /hpf Microscopic Urinalysis Comment CATH-CULTURE IND Blood Gas Puncture Site RT RADIAL Blood Gas Patient Temperature 98.6 Blood Gas HCO3 28 mmol/L Blood Gas Base Excess 3.4 mmol/L Blood Gas Oxygen Saturation 97 % Arterial Blood pH 7.36 Arterial Blood Partial Pressure CO2 51 mmHg Arterial Blood Partial Pressure O2 322 mmHG Arterial Blood Oxygen Content 10.7 Vol % Arterial Blood Carboxyhemoglobin 2.0 % Arterial Blood Methemoglobin 0.7 % Blood Gas Hemoglobin 7.2 G/DL Oxygen Delivery Device VENTILATOR Blood Gas Ventilator Setting Blood Gas Inspired Oxygen 100 % MDM Medical Decision Making Medical Screen Exam Complete: Yes Emergency Medical Condition: Yes Medical Record Reviewed: Yes (past history confirm, recent hospitalization for same) Interpretation(s) EKG is tachycardia at 105 without STEMI criteria CBC & BMP Diagram 04/10/17 15:15 Total Protein 7.4, Albumin 1.7 L, Calcium Level 7.2 *L, Phosphorus Level 7.0 H, Magnesium Level 1.7, Alkaline Phosphatase 331 H, Aspartate Amino Transf (AST/ SGOT) 27, Alanine Aminotransferase (ALT/SGPT) 12, Total Bilirubin 1.0 Last 24 hours Impressions Chest X-Ray 04/10/17 1503 Signed Impressions: Service Date/Time: Monday, April 10, 2017 15:21 - CONCLUSION: 1. Satisfactory position of endotracheal tube as above. Tj Chow MD ct brain prelim no large bleed noted when with patient in ct ct thorax infiltrates noted at bases on prelim ct abdomen/pelvis prelim mild distension with gas to bowel noted when in ct Differential Diagnosis Sepsis, GI bleed, pneumonia, URI, anemia, renal failure.... Narrative Course Will check blood work, urinalysis, chest x-ray and monitor. Patient was intubated for airway protection ed workup with uti, anemia, renal failure, will admit to icu for further care and give ivf and broad spectrum antibiotics, propofol was held for hypotension and given Versed for sedation Critical Care Narrative Aggregate critical care time was 60 minutes. Time to perform other separately billable procedures was not included in the critical care time. My time did not include minutes spent treating any other patients simultaneously or on activities that did not directly contribute to the patient's treatment. The services I provided to this patient were to treat and/or prevent clinically significant deterioration that could result in: Respiratory failure, I provided critical care services requiring my management, as noted below: Chart data review, documentation time, medication orders and management, vital sign assessments/reviewing monitor data, ordering and reviewing lab tests, ordering and interpreting/reviewing x-rays and diagnostic studies, care of the patient and discussion of the patient with the admitting physicians. Procedures Procedure Narrative Emergently performed: INTUBATION: The patient was unable to extend her neck even after rapid sequence intubation which made for difficult airway. Rapid sequence intubation was initiated by me using 20 milligrams of etomidate IV and 100 milligrams of succinylcholine IV. The patient was intubated with a 7.5 cuffed endotracheal tube. Tube placement was confirmed by visualization of the tube and balloon passing through the cords by video laryngoscopy after unable to visualize any airway with direct laryngoscopy, capnometry and subsequent chest x-ray. Breath sounds were equal and well aerated bilaterally postintubation. No breath sounds over stomach. Patient tolerated procedure well. Sepsis Criteria SIRS Criteria (2 or more): Heart rate over 90, WBC > 05296, < 4000 or > 10% bands Sepsis Criteria (SIRS+source): Infect source susp/known Severe Sepsis (+one): Acute Oliguria/Renal Failure Criteria Outcome: Meets severe sepsis criteria Physician Communication Physician Communication dr frankel agrees to admit, requests ct thorax Diagnosis Primary Impression: Acute respiratory failure Qualified Codes: J96.00 - Acute respiratory failure, unspecified whether with hypoxia or hypercapnia Additional Impressions: Sepsis Qualified Codes: A41.9 - Sepsis, unspecified organism UTI (urinary tract infection) Qualified Codes: N39.0 - Urinary tract infection, site not specified Altered mental status Qualified Codes: R41.82 - Altered mental status, unspecified Acute renal failure Qualified Codes: N17.9 - Acute kidney failure, unspecified Anemia Qualified Codes: D64.9 - Anemia, unspecified Vomiting Qualified Codes: R11.10 - Vomiting, unspecified Pneumonia Qualified Codes: J18.9 - Pneumonia, unspecified organism Admitting Information Admitting Physician Requests: Admit hSarlene Welsh MD Apr 10, 2017 15:39
[2017-04-10 15:42] LABS: APTT (PATIENT) 49.4 SEC (24.3-30.1); INTERNATIONAL NORMALIZED RATIO 1.5 RATIO; PROTHROMBIN TIME - PATIENT 17.4 SEC (9.8-11.6)
[2017-04-10] MEDS ORDERED: PROPOFOL 1000 MG/100 ML INJ 100 ML IV PRN (15:45)
[2017-04-10] MEDS ORDERED: SUCCINYLCHOLINE CHLORIDE 200 MG/10 ML VIAL IV PUSH ONE (15:45)
[2017-04-10] MEDS ORDERED: ETOMIDATE 20 MG/10 ML VIAL IVP ONE (15:45)
--- NOTE | 2017-04-10 16:06 | RADRPT ---
EXAM DATE/TIME: 04/10/2017 15:21 [facility] COMPARISON: CHEST SINGLE AP, February 24, 2017, 10:55. INDICATIONS : Post intubation. MEDICAL HISTORY : Hypertension. Diabetes mellitus type 2. Intestinal hernia. SURGICAL HISTORY : Appendectomy. Cholecystectomy. ENCOUNTER: Initial ACUITY: 1 day PAIN SCORE: Non-responsive. LOCATION: Bilateral chest FINDINGS: The cardiac silhouette is enlarged in transverse diameter. The patient is rotated into the right post erior oblique position. Endotracheal tube is just above the kimberlyn. There is elevation of the right h emidiaphragm. There is subsegmental atelectasis in the right base. CONCLUSION: 1. Satisfactory position of endotracheal tube as above. Tj Chow MD on April 10, 2017 at 16:04 Board Certified Radiologist. This report was verified electronically.
[2017-04-10 16:11] LABS: BACTERIA, URINE MANY /hpf; BLOOD, URINE MOD (NEG); COMMENT (UR) CATH-CULTURE IND; CULTURE IF INDICATED CATH CULTURE IND; GLUCOSE,URINE NEG (NEG); KETONE, URINE NEG (NEG); NITRITE,URINE NEG (NEG); URINE COLOR YELLOW (YELLW/STRAW)
[2017-04-10 16:13] LABS: BICARBONATE 31.9 MEQ/L (21.0-32.0); MAGNESIUM 1.7 MG/DL (1.5-2.5); POTASSIUM 4.8 MEQ/L (3.5-5.1)
[2017-04-10] MEDS ORDERED: SODIUM CHLOR 0.9% 1000 ML INJ 1,000 ML IV ONE ×4 (16:15→20:30)
[2017-04-10] MEDS ORDERED: MIDAZOLAM 100 MG/100 ML INJ 100 ML IV PRN ×2 (16:15→23:15)
[2017-04-10 16:17] LABS: BLOOD GAS BASE EXCESS 3.4 mmol/L (-2-2); BLOOD GAS HCO3 28 mmol/L (22-26); BLOOD GAS METHEMOGLOBIN 0.7 % (0-2); BLOOD GAS O2 HGB SATURATION 97 % (90-100); BLOOD GAS OXYGEN CONTENT 10.7 Vol % (12.0-20.0); BLOOD GAS PCO2 51 mmHg (38-42); BLOOD GAS PO2 322 mmHG (61-120); BLOOD GAS TOTAL HGB 7.2 G/DL (12.0-16.0); CRITICAL VALUE YES; OXYGEN DEVICE VENTILATOR; TEMP CORR TO 98.6
[2017-04-10 16:18] LABS: DRAW SITE RT RADIAL; FIO2 100 %; NUMBER OF ARTERIAL PUNCTURES 1; STAT YES; ULNAR PULSE PRESENT
[2017-04-10 16:21] LABS: CALCIUM-PROTEIN CORRECTED 7.1 MG/DL (8.5-10.1)
[2017-04-10 16:22] LABS: BANDS 26 % (0-6); METAMYELOCYTES 2 % (0-1); MYELOCYTES 1 % (0-0); POLYS (SEG NEUTROPHILS) 53 % (16-70); WBC DIFF SAMPLE 100
[2017-04-10] MEDS ORDERED: SODIUM CHLOR 0.9% 250 ML INJ 250 ML IV ONE (16:30)
[2017-04-10 16:31] LABS: PLATELET ESTIMATE SMEAR HIGH (NORMAL); PLATELET MORPHOLOGY NORMAL (NORMAL); SCAN/DIFF FINAL DIFF MANUAL
[2017-04-10 16:32] LABS: STOMATOCYTES 2+ (NORMAL)
[2017-04-10] MEDS ORDERED: MIDAZOLAM 100 MG/100 ML INJ 100 ML ONE (16:32)
[2017-04-10 16:33] LABS: SPHEROCYTES 1+ (NORMAL)
[2017-04-10] MEDS ORDERED: DEXTROSE 50% IN WATER 50 ML VIAL(D50) IV PUSH PRN (17:00)
[2017-04-10] MEDS ORDERED: LACTULOSE SYRUP 20 GM/30 ML CUP PO PRN (17:00)
[2017-04-10] MEDS ORDERED: BISACODYL 10 MG SUPP RECTAL PRN (17:00)
[2017-04-10] MEDS ORDERED: CHLORHEXIDINE GLUCONATE 2 % 1 PACK (2 CLOTHS) TOP PRN (17:00)
[2017-04-10] MEDS ORDERED: Vancomycin Consult Pharmacy 1 EA OTHER SCH (17:00)
[2017-04-10] MEDS ORDERED: MAGNESIUM HYDROXIDE SUSP 30 ML CUP PO PRN (17:00)
[2017-04-10] MEDS ORDERED: SENNOSIDES 8.6 MG TAB PO PRN (17:00)
[2017-04-10] MEDS ORDERED: MISCELLANEOUS NURSING INFORMATION XX SCH (17:00)
[2017-04-10] MEDS ORDERED: PIPERACIL-TAZO 4.5 GM PREMIX 100 ML IV SCH (17:00)
[2017-04-10] MEDS: INSULIN NovoLIN REGULAR SUPPLEMENTAL SCALE SQ SCH ×2 (17:00→21:00)
[2017-04-10] MEDS ORDERED: GLUCAGON 1 MG/ML VIAL OTHER PRN (17:00)
[2017-04-10] MEDS ORDERED: DEXT 5%-NACL 0.9% 1000 ML INJ 1,000 ML IV SCH (17:00)
--- NOTE | 2017-04-10 17:28 | RADRPT ---
EXAM DATE/TIME: 04/10/2017 17:11 [facility] COMPARISON: CT BRAIN W/O CONTRAST, February 23, 2017, 15:20. INDICATIONS : Found unresponsive. RADIATION DOSE: 52.41 CTDIvol (mGy) ; Tabletop CT Head MEDICAL HISTORY : Cardiovascular disease. Hypertension. Diabetes mellitus type 2. SURGICAL HISTORY : Appendectomy. Cholecystectomy. ENCOUNTER: Initial ACUITY: 1 day PAIN SCALE: Non-responsive LOCATION: cranial TECHNIQUE: Multiple contiguous axial images were obtained of the head. Using automated exposure control and adj ustment of the mA and/or kV according to patient size, radiation dose was kept as low as reasonably a chievable to obtain optimal diagnostic quality images. DICOM format image data is available electro nically for review and comparison. FINDINGS: CEREBRUM: Mild diffuse cerebral volume loss. The ventricles are normal for age. No evidence of midline shift, mass lesion, hemorrhage or acute infarction. No extra-axial fluid collections are seen. POSTERIOR FOSSA: The cerebellum and brainstem are intact. The 4th ventricle is midline. The cerebellopontine angle i s unremarkable. EXTRACRANIAL: The visualized portion of the orbits is intact. SKULL: The calvaria is intact. No evidence of skull fracture. CONCLUSION: 1. No acute intracranial abnormality or significant interval change. Daniel Carvajal MD on April 10, 2017 at 17:25 Board Certified Radiologist. This report was verified electronically.
--- NOTE | 2017-04-10 17:37 | RADRPT ---
EXAM DATE/TIME: 04/10/2017 17:15 [facility] COMPARISON: No previous studies available for comparison. INDICATIONS : Short of breath. Unresponsive. RADIATION DOSE: 20.56 CTDIvol (mGy) ; Combined studies - Thorax/Abdomen/Pelvis MEDICAL HISTORY : Cardiovascular disease. Hypertension. Diabetes mellitus type 1. SURGICAL HISTORY : Appendectomy. Cholecystectomy. ENCOUNTER: Initial ACUITY: 1 day PAIN SCALE: Non-responsive LOCATION: chest TECHNIQUE: Volumetric scanning of the chest was performed. Using automated exposure control and adjustment of t he mA and/or kV according to patient size, radiation dose was kept as low as reasonably achievable to obtain optimal diagnostic quality images. DICOM format image data is available electronically for r eview and comparison. Follow-up recommendations for detected pulmonary nodules are based at a minimum on nodule size and pa tient risk factors according to Fleischner Society Guidelines. FINDINGS: LUNGS: Patient is intubated with ET tube just above the kimberlyn. There is an NG tube coursing beyond the GE j unction. Dense airspace consolidation in the right lower lobe and inferior right middle lobe with pat yaniv nodular parenchymal opacities throughout the right upper lobe. There is subtle nodular groundglas s opacities at the extreme left lung base. PLEURAE: There is no pleural thickening or pleural effusion. MEDIASTINUM: Aortic valve and mitral valve calcifications. Heart is otherwise grossly unremarkable without signifi cant pericardial effusion. No significant mediastinal adenopathy. AXILLAE: Within normal limits. No lymphadenopathy. MUSCULOSKELETAL: Within normal limits for patient age. Small 2.3 x 1.6 and a subcutaneous soft tissue nodule in the po sterior right shoulder region, likely sebaceous cyst. MISCELLANEOUS: The visualized upper abdominal organs demonstrate no acute abnormality. CONCLUSION: 1. ETT just above the kimberlyn. 2. Dense right lower lobe airspace consolidation with diffuse patchy nodular airspace disease through out the remainder of the right lung and at the extreme left lung base. Findings are most consistent w ith pneumonia, atypical infection or aspiration. 3. No significant effusion or pneumothorax. Daniel Carvajal MD on April 10, 2017 at 17:30 Board Certified Radiologist. This report was verified electronically.
--- NOTE | 2017-04-10 17:47 | RADRPT ---
EXAM DATE/TIME: 04/10/2017 17:15 [facility] COMPARISON: CT THORAX W/O CONTRAST, April 10, 2017, 17:15. INDICATIONS : Respiratory failure, vomiting. Unresponsive. ORAL CONTRAST: No oral contrast ingested. RADIATION DOSE: 20.56 CTDIvol (mGy) ; Combined studies - Thorax/Abdomen/Pelvis MEDICAL HISTORY : Cardiovascular disease. Hypertension. Diabetes mellitus type 1. SURGICAL HISTORY : Appendectomy. Cholecystectomy. ENCOUNTER: Initial ACUITY: 1 day PAIN SCALE: Non-responsive LOCATION: abdomen TECHNIQUE: Volumetric scanning of the abdomen and pelvis was performed. Using automated exposure control and ad justment of the mA and/or kV according to patient size, radiation dose was kept as low as reasonably achievable to obtain optimal diagnostic quality images. DICOM format image data is available electro nically for review and comparison. FINDINGS: LOWER LUNGS: Consolidative change in the posterior right lung base and minimal density in the left lung base. LIVER: Homogeneous density without lesion. There is no dilation of the biliary tree. Gallbladder surgically absent.. SPLEEN: Normal size without lesion. PANCREAS: Within normal limits. KIDNEYS: Right renal cysts. No evidence of stone or hydronephrosis. ADRENAL GLANDS: Within normal limits. VASCULAR: There is no aortic aneurysm. BOWEL/MESENTERY: Nasogastric tube present in the stomach. Mild nonspecific fluid and gaseous distention of small bowel . Occasional colonic diverticula. No evidence of focal bowel wall thickening or inflammatory change. ABDOMINAL WALL: Within normal limits. RETROPERITONEUM: There is no lymphadenopathy. BLADDER: Decompressed with Cuellar catheter present REPRODUCTIVE: Within normal limits. INGUINAL: There is no lymphadenopathy or hernia. MUSCULOSKELETAL: Right total hip arthroplasty. Severe degenerative changes in the spine and left hip. CONCLUSION: Mild fluid and gaseous distention of small bowel, mainly the proximal small bowel. No acute focal fin dings in the abdomen or pelvis on noncontrast evaluation. King Shi MD on April 10, 2017 at 17:37 Board Certified Radiologist. This report was verified electronically.
[2017-04-10] MEDS: RESP: ALBUTEROL 2.5 MG/IPRATROPIUM 0.5 MG NEB (SCH) INH ×2 (17:49→19:31)
--- NOTE | 2017-04-10 18:14 | MH ---
cc: PRIYANKA SHANNON M.D. DATE OF ADMISSION 04/10/2017 DATE OF 1945 HISTORY OF THE PRESENT ILLNESS The patient is a 72-year-old female with multiple medical comorbidities which include hypertension, diabetes mellitus, hyperlipidemia, obstructive sleep apnea on C-PAP machine at home, COPD, CVA with residual left-sided hemiparesis who presented to [facility] ED with altered mental status and emesis. She was last seen normal yesterday. The patient was on non-rebreather mask initially, however, she was intubated with etomidate, succinylcholine and placed on mechanical ventilation. Also she was placed on Versed drip for sedation. ABG post intubation showed acute hypercapnic respiratory failure with a pH of 7.36, CO2 51, pAO2 322, bicarb 28 and saturation 97%. Her laboratory data significant for acute renal failure with a BUN of 91, creatinine 3.65. Lactic acid was 1.9. Also she was found to have leukocytosis with a WBC of 17.1 associated with bandemia of 26. Her urinalysis was positive for leukocyte esterase, moderate blood and many bacteria. Chest x-ray post intubation showed ET tube above the kimberlyn, questionable elevation of right hemidiaphragm with subsegmental atelectasis. In the ER she is currently receiving a second liter of IV fluids and received cefepime and vancomycin. A Cuellar was placed in the ER and post placement the patient noted to have hematuria. to her altered mental status she was scheduled to undergo CT scan of the brain without contrast. Of note the patient was on Eliquis for a history of paroxysmal atrial fibrillation. Also a CT scan of the thorax, abdomen, pelvis without contrast were ordered by the ED physician. Most of the history was obtained from reviewing medical records as the patient is intubated and no family members present at the bedside. PAST MEDICAL HISTORY Significant for: 1. CVA with left-sided hemiparesis. 2. Hypertension. 3. Diabetes. 4. Hyperlipidemia. 5. COPD. 6. Obstructive sleep apnea on home C-PAP. 7. Paroxysmal atrial fibrillation. PAST SURGICAL HISTORY 1. Previous appendectomy. 2. Previous cholecystectomy. 3. Previous right hip replacement. 4. Previous hernia repair. FAMILY HISTORY Unobtainable as the patient is intubated. She lives with her son. SOCIAL HISTORY No history of alcohol or illicit drug use per records. ALLERGIES NO KNOWN DRUG ALLERGIES. MEDICATIONS Reported medications include: 1. Eliquis 2. Albuterol. 3. Cardizem. 4. Lasix. 5. Protonix. REVIEW OF SYSTEMS As per HPI. Rest of the system are unobtainable. PHYSICAL EXAMINATION GENERAL: A 72-year-old female intubated for respiratory failure. VITAL SIGNS: Temperature 98.6, pulse of 96, blood pressure 105/41, sats 99%. Vent setting PRVC rate of 14, tidal volume 500. I time 1, PEEP 5, FIO2 40%. HEENT: Atraumatic, normocephalic. Pupils equal, round and reactive to light and accommodation. Extraocular muscles intact. Conjunctiva pink. Nonicteric sclerae. Oral mucosa, dry mucous membranes. NECK: Supple. No JVD, adenopathy or thyromegaly. Trachea in the midline. Orally intubated. CARDIOVASCULAR: Regular rate and rhythm. Normal S1-S2. No murmurs, rubs or gallops noted. LUNGS: Pulmonary exam bilateral equal air entry. No wheezing. ABDOMEN: Soft, nontender, obese, positive bowel sounds. EXTREMITIES: No cyanosis, clubbing, 2+ edema. NEUROLOGIC: Intubated, sedated with Versed. EKG showed atrial flutter / tachycardia with a rate of 104 beats per minute. Nonspecific ST wave abnormalities. Chest x-ray showed atelectasis in the right lung base with elevation of the right hemidiaphragm. LABORATORY DATA Sodium of 130, potassium 4.8, chloride 88, anion gap 10, BUN 91, creatinine 3.65, glucose 139, lactic acid 1.9, corrected calcium 7.1. Troponin 0.07 with total CK 35. BNP 126. Albumin 1.7. WBC 17.1, hemoglobin 8.6, hematocrit 27, platelet count 729. INR 1.5. PT 17.4, PTT 49.4. Urinalysis grossly positive for leukocyte esterase, moderate blood, protein, many bacteria. IMPRESSION 1. Acute hypercapnic and hypoxemic respiratory failure. 2. Altered mental status. 3. Acute renal failure. 4. Hyponatremia. 5. Leukocytosis with bandemia. 6. Urinary tract infection. 7. Possible aspiration pneumonia. 8. Paroxysmal atrial fibrillation on Eliquis. 9. Hematuria. 10. COPD. 11. Hypertension. 12. Diabetes mellitus. 13. Hyperlipidemia. 14. History of CVA with residual left-sided hemiparesis. RECOMMENDATIONS 1. We will switch from Versed to fentanyl infusion for sedation and vent synchrony. Daily sedation vacation when appropriate. The patient is for CT scan of the brain without contrast to rule out acute intracranial process and possible bleed. The patient was on Eliquis at home for paroxysmal atrial fibrillation. 2. Continue with vent support and maintain sats above 92%. 3. Bronchodilators in the form of DuoNeb q.6h. Will initiate ICU vent bundle. Chest x-ray in the ER showed elevation right hemidiaphragm with subsegmental atelectasis in the right lung base. Will we proceed with CT scan of the chest without contrast for further evaluation of pulmonary parenchyma. 4. Monitor heart rate and blood pressure closely and maintain MAP greater 65 mmHg. She is currently receiving the second liter of crystalloids in the ED. Lactic acid level measured at 1.9. She had an echocardiogram in February which showed an EF of 55-60%. Hold Cardizem and Eliquis for now. Monitor renal function ins and outs and avoid nephrotoxins. Will continue with IV hydration in the form of D5 NS at 75 an hour. The patient is for CT abdomen and pelvis without contrast. Will consult the urology service for hematuria noted post Cuellar placement in the ED. 5. Keep n.p.o. for now and place on Protonix 40 mg IV daily for GI prophylaxis. 6. Continue with broad-spectrum antibiotics in the form of vancomycin and Zosyn. Adjust antibiotics doses per renal function. Monitor for signs infections which include fever and WBC. Follow up on blood cultures and urine cultures. Will obtain a sputum culture with gram stain as well. Her influenza type A and B antigen in the ED negative for flu. 7. Place on sliding scale insulin with Accu-Chek q.4h for glycemic control. 8. Monitor CBC and coags. 9. GI prophylaxis with Protonix 40 mg daily and DVT prophylaxis with SCDs for now. We will start chemical anticoagulation prophylaxis if CT scan of the brain negative for acute process. Further recommendations based on the hospital course. Critical care time 40 minutes excluding procedures. MD ELE Ayoub/LISA /5:09 PM /5:35 PM
[2017-04-10] MEDS: fentaNYL DRIP 250 ML IV PRN (18:46)
[2017-04-10] MEDS: AZITHROMYCIN INJ 500 MG in SODIUM CHLOR 0.9% 250 ML INJ 250 ML IV SCH (18:47)
[2017-04-10] MEDS: PIPERACIL-TAZO 2.25 GM PREMIX 50 ML IV SCH (20:29)
[2017-04-10] MEDS: NOREPINEPHRINE 4 MG/D5W 250 ML IV PRN (20:33)
[2017-04-10] MEDS: DOCUSATE SODIUM 50 MG/SENNA 8.6 MG TAB PO SCH (21:00)
--- NOTE | 2017-04-10 22:22 | PD.PROCEDR ---
Procedure Note Procedure Centerline placement A time-out was completed verifying correct patient, procedure, site, positioning , and special equipment if applicable. The patient was placed in a dependent position appropriate for central line placement based on the vein to be cannulated. The patients right shoulder was prepped and draped in sterile fashion. 1% Lidocaine was used to anesthetize the surrounding skin area. A triple lumen 9-English Cordis catheter was introduced into the the right subclavian vein using the Seldinger technique. The catheter was threaded smoothly over the guide wire and appropriate blood return was obtained. Each lumen of the catheter was evacuated of air and flushed with sterile saline. The catheter was then sutured in place to the skin and a sterile dressing applied. Perfusion to the extremity distal to the point of catheter insertion was checked and found to be adequate. Estimated Blood Loss: 1ml The patient tolerated the procedure well and there were no complications. Chris Palm MD Apr 10, 2017 22:22
--- NOTE | 2017-04-10 22:22 | PD.PROCEDR ---
Procedure Note Procedure Arterial line placement A time-out was completed verifying correct patient, procedure, site, positioning , and special equipment if applicable. Allens test was performed to ensure adequate perfusion. The patients right wrist was prepped and draped in sterile fashion. 1% Lidocaine was used to anesthetize the area. A 18G Arrow arterial line was introduced into the radial artery. The catheter was threaded over the guide wire and the needle was removed with appropriate pulsatile blood return. The catheter was then sutured in place to the skin and a sterile dressing applied. Perfusion to the extremity distal to the point of catheter insertion was checked and found to be adequate. Estimated Blood Loss: 1ml The patient tolerated the procedure well and there were no complications. Chris Palm MD Apr 10, 2017 22:22
[2017-04-10 23:22] LABS: BLOOD GAS BASE EXCESS -0.9 mmol/L (-2-2); BLOOD GAS CARBOXYHEMOGLOBIN 2.1 % (0-4); BLOOD GAS HCO3 24 mmol/L (22-26); BLOOD GAS METHEMOGLOBIN 1.3 % (0-2); BLOOD GAS O2 HGB SATURATION 94 % (90-100); BLOOD GAS OXYGEN CONTENT 9.7 Vol % (12.0-20.0); BLOOD GAS PCO2 41 mmHg (38-42); BLOOD GAS PO2 98 mmHg (61-120); BLOOD GAS TOTAL HGB 7.2 G/DL (12.0-16.0); CRITICAL VALUE NO; OXYGEN DEVICE VENTILATOR; TEMP CORR TO 98.6
[2017-04-10 23:23] LABS: DRAW SITE LT RADIAL; FIO2 40 %; NUMBER OF ARTERIAL PUNCTURES 1; STAT NO; ULNAR PULSE PRESENT
[2017-04-10] MEDS: PROPOFOL 1000 MG/100 ML IV PRN (23:35)
--- NOTE | 2017-04-10 23:35 | RADRPT ---
EXAM DATE/TIME: 04/10/2017 22:41 [facility] COMPARISON: CT THORAX W/O CONTRAST, April 10, 2017, 17:15. CHEST SINGLE AP, April 10, 2017, 15:21. INDICATIONS : Central line placement MEDICAL HISTORY : Hypertension. Diabetes mellitus type 2. Intestinal hernia. SURGICAL HISTORY : Appendectomy. Cholecystectomy. ENCOUNTER: Initial ACUITY: 1 day PAIN SCORE: Non-responsive. LOCATION: Bilateral chest FINDINGS: ET tube, NG tube and right subclavian line are well placed. The heart size is normal. There appears t o be volume loss in the right chest. There is shift of the heart and mediastinal structures towards t he right. There is increased density at the right base. Some of this is secondary to the volume loss. These findings were better characterized on the CT examination performed earlier today. There is inc reased density in the right lower lung. There is minimal increased density at the left base. CONCLUSION: Volume loss in the right chest with right lower lung consolidation or atelectasis. There is minimal s uspected atelectasis or consolidation at the left base. King Brown MD on April 10, 2017 at 23:30 Board Certified Radiologist. This report was verified electronically.
[2017-04-10 23:46] LABS: BICARBONATE 26.1 MEQ/L (21.0-32.0); POTASSIUM 3.9 MEQ/L (3.5-5.1)
[2017-04-11] VITALS (39 sets, daily range): BP systolic 94–151; BP diastolic 36–68; PULSE 75–102; RESP 8–31; TEMP 97.1–98.5; O2SAT 95–100
[2017-04-11] MEDS: PIPERACIL-TAZO 2.25 GM PREMIX 50 ML IV SCH ×4 (00:28→18:06)
[2017-04-11] MEDS: VASOPRESSIN INJ 40 UNITS in DEXTROSE 5% IN WATER 100ML INJ 98 ML IV SCH ×4 (00:29→18:10)
[2017-04-11 00:54] LABS: HEMATOCRIT 22.4 % (35.0-46.0); MEAN CELL VOLUME 84.8 FL (80.0-100.0); MEAN CORPUSCULAR HEMOGLOBIN 26.4 PG (27.0-34.0); MEAN CORPUSCULAR HGB CONC 31.1 % (32.0-36.0); PLATELET COUNT 742 TH/MM3 (150-450); RED BLOOD COUNT 2.64 MIL/MM3 (4.00-5.30); RED CELL DISTRIBUTION WIDTH 20.9 % (11.6-17.2); REVIEW FLAG FINAL; WHITE BLOOD COUNT 19.3 TH/MM3 (4.0-11.0)
[2017-04-11] MEDS: INSULIN NovoLIN REGULAR SUPPLEMENTAL SCALE SQ SCH ×7 (01:00→20:00)
[2017-04-11] MEDS: RESP: ALBUTEROL 2.5 MG/IPRATROPIUM 0.5 MG NEB (SCH) INH ×4 (03:48→20:57)
[2017-04-11] MEDS: CHLORHEXIDINE GLUCONATE 2 % 1 PACK (2 CLOTHS) TOP SCH (04:00)
[2017-04-11 05:14] LABS: AUTOMATED NEUTROPHIL # 15.1 TH/MM3 (1.8-7.7); BASOPHIL % 0.1 % (0.0-2.0); EOSINOPHIL # 0.2 TH/MM3 (0-0.4); EOSINOPHIL % 0.9 % (0.0-4.0); HEMATOCRIT 27.1 % (35.0-46.0); LYMPH % 17.7 % (9.0-44.0); LYMPHOCYTE # 3.5 TH/MM3 (1.0-4.8); MEAN CELL VOLUME 85.4 FL (80.0-100.0); MEAN CORPUSCULAR HEMOGLOBIN 27.7 PG (27.0-34.0); MEAN CORPUSCULAR HGB CONC 32.5 % (32.0-36.0); MONO % 5.2 % (0.0-8.0); NEUT % 76.1 % (16.0-70.0); PLATELET COUNT 652 TH/MM3 (150-450); RED BLOOD COUNT 3.18 MIL/MM3 (4.00-5.30); RED CELL DISTRIBUTION WIDTH 19.9 % (11.6-17.2); WHITE BLOOD COUNT 19.8 TH/MM3 (4.0-11.0)
[2017-04-11 05:22] LABS: HEMO FLAGS AUTO DIFF
[2017-04-11 05:51] LABS: BICARBONATE 24.5 MEQ/L (21.0-32.0); POTASSIUM 3.7 MEQ/L (3.5-5.1); TOTAL BILIRUBIN ADULT 0.8 MG/DL (0.2-1.0)
[2017-04-11 08:02] LABS: BANDS 12 % (0-6); DOHLE BODIES PRESENT (NONE SEEN); METAMYELOCYTES 1 % (0-1); MYELOCYTES 1 % (0-0); NEUTROPHIL # MANUAL DIFF 14.5 TH/MM3 (1.8-7.7); POLYS (SEG NEUTROPHILS) 59 % (16-70); TOXIC GRANULATION 2+ (NORMAL); WBC DIFF SAMPLE 100
[2017-04-11 08:03] LABS: PLATELET ESTIMATE SMEAR HIGH (NORMAL); PLATELET MORPHOLOGY NORMAL (NORMAL); SCAN/DIFF FINAL DIFF MANUAL
[2017-04-11] MEDS: DOCUSATE SODIUM 50 MG/SENNA 8.6 MG TAB PO SCH ×2 (09:00→20:51)
[2017-04-11] MEDS ORDERED: GLUCAGON 1 MG/ML VIAL OTHER PRN (10:45)
[2017-04-11] MEDS ORDERED: DEXTROSE 50% IN WATER 50 ML VIAL(D50) IV PUSH PRN (10:45)
--- NOTE | 2017-04-11 11:27 | HHI.CCPN ---
Subjective Remarks/Hospital Course The patient is a 72-year-old female with multiple medical comorbidities which include hypertension, diabetes mellitus, hyperlipidemia, obstructive sleep apnea on C-PAP machine at home, COPD, CVA with residual left-sided hemiparesis who presented to [facility] ED with altered mental status and emesis. She was last seen normal yesterday. The patient was on non-rebreather mask initially, however, she was intubated with etomidate, succinylcholine and placed on mechanical ventilation. Also she was placed on Versed drip for sedation. ABG post intubation showed acute hypercapnic respiratory failure with a pH of 7.36, CO2 51, pAO2 322, bicarb 28 and saturation 97%. Her laboratory data significant for acute renal failure with a BUN of 91, creatinine 3.65. Lactic acid was 1.9. Also she was found to have leukocytosis with a WBC of 17.1 associated with bandemia of 26. Her urinalysis was positive for leukocyte esterase, moderate blood and many bacteria. Chest x-ray post intubation showed ET tube above the kimberlyn, questionable elevation of right hemidiaphragm with subsegmental atelectasis. In the ER she is currently receiving a second liter of IV fluids and received cefepime and vancomycin. A Cuellar was placed in the ER and post placement the patient noted to have hematuria. to her altered mental status she was scheduled to undergo CT scan of the brain without contrast. Of note the patient was on Eliquis for a history of paroxysmal atrial fibrillation. Also a CT scan of the thorax, abdomen , pelvis without contrast were ordered by the ED physician. Most of the history was obtained from reviewing medical records as the patient is intubated and no family members present at the bedside 04/11 Patient became hypotensive overnight started on Levophed 15 mics and Vasopressin.Sedated with fentanyl, Diprivan and intubated. Afebrile. BC from yesterday GPC. Objective Vital Signs Date Time Temp Pulse Resp B/P (MAP) Pulse Ox O2 Delivery O2 Flow Rate FiO2 04/11/17 08:20 100 40 04/11/17 07:30 83 132/54 04/11/17 04:25 98.5 16 04/10/17 16:55 Ventilator 04/10/17 15:12 15.00 Intake and Output 04/11/17 04/11/17 04/12/17 08:00 16:00 00:00 Intake Total 840 ml Output Total 200 ml Balance 640 ml Result Diagram: 04/11/17 0430 04/11/17 0430 Other Results Laboratory Tests Test 04/10/17 15:15 04/10/17 15:55 04/10/17 16:05 04/10/17 19:00 White Blood Count 17.1 TH/MM3 Red Blood Count 3.25 MIL/MM3 Hemoglobin 8.6 GM/DL Hematocrit 27.3 % Mean Corpuscular Volume 84.1 FL Mean Corpuscular Hemoglobin 26.5 PG Mean Corpuscular Hemoglobin Concent 31.5 % Red Cell Distribution Width 20.3 % Platelet Count 729 TH/MM3 Mean Platelet Volume 8.3 FL Neutrophils (%) (Auto) 74.1 % Lymphocytes (%) (Auto) 19.1 % Monocytes (%) (Auto) 5.8 % Eosinophils (%) (Auto) 0.9 % Basophils (%) (Auto) 0.1 % Neutrophils # (Auto) 12.7 TH/MM3 Lymphocytes # (Auto) 3.3 TH/MM3 Monocytes # (Auto) 1.0 TH/MM3 Eosinophils # (Auto) 0.2 TH/MM3 Basophils # (Auto) 0.0 TH/MM3 CBC Comment AUTO DIFF Differential Total Cells Counted 100 Neutrophils % (Manual) 53 % Band Neutrophils % 26 % Lymphocytes % 14 % Monocytes % 4 % Neutrophils # (Manual) 14.0 TH/MM3 Metamyelocytes 2 % Myelocytes 1 % Differential Comment FINAL DIFF MANUAL Platelet Estimate HIGH Platelet Morphology Comment NORMAL Spherocytes 1+ Ovalocytes Stomatocytes 2+ Prothrombin Time 17.4 SEC Prothromb Time International Ratio 1.5 RATIO Activated Partial Thromboplast Time 49.4 SEC Blood Urea Nitrogen 91 MG/DL Creatinine 3.65 MG/DL Random Glucose 139 MG/DL Total Protein 7.4 GM/DL Albumin 1.7 GM/DL Calcium Level 7.2 MG/DL Phosphorus Level 7.0 MG/DL Magnesium Level 1.7 MG/DL Alkaline Phosphatase 331 U/L Aspartate Amino Transf (AST/SGOT) 27 U/L Alanine Aminotransferase (ALT/SGPT) 12 U/L Total Bilirubin 1.0 MG/DL Sodium Level 130 MEQ/L Potassium Level 4.8 MEQ/L Chloride Level 88 MEQ/L Carbon Dioxide Level 31.9 MEQ/L Anion Gap 10 MEQ/L Estimat Glomerular Filtration Rate 12 ML/MIN Lactic Acid Level 1.9 mmol/L Protein Corrected Calcium 7.1 MG/DL Total Creatine Kinase 35 U/L Troponin I 0.07 NG/ML B-Type Natriuretic Peptide 126 PG/ML Lipase 37 U/L Urine Color YELLOW Urine Turbidity CLOUDY Urine pH 8.0 Urine Specific [place] 1.015 Urine Protein 100 mg/dL Urine Glucose (UA) NEG mg/dL Urine Ketones NEG mg/dL Urine Occult Blood MOD Urine Nitrite NEG Urine Bilirubin NEG Urine Urobilinogen LESS THAN 2.0 MG/DL Urine Leukocyte Esterase LARGE Urine RBC /hpf Urine WBC /hpf Urine WBC Clumps OCC Urine Bacteria MANY /hpf Microscopic Urinalysis Comment CATH-CULTURE IND Blood Gas Puncture Site RT RADIAL Blood Gas Patient Temperature 98.6 Blood Gas HCO3 28 mmol/L Blood Gas Base Excess 3.4 mmol/L Blood Gas Oxygen Saturation 97 % Arterial Blood pH 7.36 Arterial Blood Partial Pressure CO2 51 mmHg Arterial Blood Partial Pressure O2 322 mmHG Arterial Blood Oxygen Content 10.7 Vol % Arterial Blood Carboxyhemoglobin 2.0 % Arterial Blood Methemoglobin 0.7 % Blood Gas Hemoglobin 7.2 G/DL Oxygen Delivery Device VENTILATOR Blood Gas Ventilator Setting Blood Gas Inspired Oxygen 100 % Nasal Screen MRSA (PCR) MRSA DETECTED Test 04/10/17 22:55 04/10/17 22:57 04/11/17 04:30 Blood Gas Puncture Site LT RADIAL Blood Gas Patient Temperature 98.6 Blood Gas HCO3 24 mmol/L Blood Gas Base Excess -0.9 mmol/L Blood Gas Oxygen Saturation 94 % Arterial Blood pH 7.38 Arterial Blood Partial Pressure CO2 41 mmHg Arterial Blood Partial Pressure O2 98 mmHg Arterial Blood Oxygen Content 9.7 Vol % Arterial Blood Carboxyhemoglobin 2.1 % Arterial Blood Methemoglobin 1.3 % Blood Gas Hemoglobin 7.2 G/DL Oxygen Delivery Device VENTILATOR Blood Gas Ventilator Setting SEE COMMENT Blood Gas Inspired Oxygen 40 % White Blood Count 19.3 TH/MM3 19.8 TH/MM3 Red Blood Count 2.64 MIL/MM3 3.18 MIL/MM3 Hemoglobin 7.0 GM/DL 8.8 GM/DL Hematocrit 22.4 % 27.1 % Mean Corpuscular Volume 84.8 FL 85.4 FL Mean Corpuscular Hemoglobin 26.4 PG 27.7 PG Mean Corpuscular Hemoglobin Concent 31.1 % 32.5 % Red Cell Distribution Width 20.9 % 19.9 % Platelet Count 742 TH/MM3 652 TH/MM3 Mean Platelet Volume 8.9 FL 8.7 FL Blood Urea Nitrogen 86 MG/DL 86 MG/DL Creatinine 3.40 MG/DL 3.31 MG/DL Random Glucose 216 MG/DL 313 MG/DL Total Protein 6.0 GM/DL 6.1 GM/DL Calcium Level 6.5 MG/DL 6.5 MG/DL Sodium Level 132 MEQ/L 130 MEQ/L Potassium Level 3.9 MEQ/L 3.7 MEQ/L Chloride Level 92 MEQ/L 91 MEQ/L Carbon Dioxide Level 26.1 MEQ/L 24.5 MEQ/L Anion Gap 14 MEQ/L 15 MEQ/L Estimat Glomerular Filtration Rate 13 ML/MIN 14 ML/MIN Protein Corrected Calcium 7.0 MG/DL 7.0 MG/DL Neutrophils (%) (Auto) 76.1 % Lymphocytes (%) (Auto) 17.7 % Monocytes (%) (Auto) 5.2 % Eosinophils (%) (Auto) 0.9 % Basophils (%) (Auto) 0.1 % Neutrophils # (Auto) 15.1 TH/MM3 Lymphocytes # (Auto) 3.5 TH/MM3 Monocytes # (Auto) 1.0 TH/MM3 Eosinophils # (Auto) 0.2 TH/MM3 Basophils # (Auto) 0.0 TH/MM3 CBC Comment AUTO DIFF Differential Total Cells Counted 100 Neutrophils % (Manual) 59 % Band Neutrophils % 12 % Lymphocytes % 24 % Monocytes % 3 % Neutrophils # (Manual) 14.5 TH/MM3 Metamyelocytes 1 % Myelocytes 1 % Differential Comment FINAL DIFF MANUAL Toxic Granulation 2+ Dohle Bodies PRESENT Platelet Estimate HIGH Platelet Morphology Comment NORMAL Albumin 1.5 GM/DL Alkaline Phosphatase 282 U/L Aspartate Amino Transf (AST/SGOT) 23 U/L Alanine Aminotransferase (ALT/SGPT) 10 U/L Total Bilirubin 0.8 MG/DL Imaging Last Impressions Head CT 04/10/17 1648 Signed Impressions: Service Date/Time: Monday, April 10, 2017 17:11 - CONCLUSION: 1. No acute intracranial abnormality or significant interval change. Daniel Carvajal MD Abdomen/Pelvis CT 04/10/17 1625 Signed Impressions: Service Date/Time: Monday, April 10, 2017 17:15 - CONCLUSION: Mild fluid and gaseous distention of small bowel, mainly the proximal small bowel. No acute focal findings in the abdomen or pelvis on noncontrast evaluation. King Shi MD Chest X-Ray 04/10/17 1503 Signed Impressions: Service Date/Time: Monday, April 10, 2017 15:21 - CONCLUSION: 1. Satisfactory position of endotracheal tube as above. Tj Chow MD Chest CT 04/10/17 0000 Signed Impressions: Service Date/Time: Monday, April 10, 2017 17:15 - CONCLUSION: 1. ETT just above the kimberlyn. 2. Dense right lower lobe airspace consolidation with diffuse patchy nodular airspace disease throughout the remainder of the right lung and at the extreme left lung base. Findings are most consistent with pneumonia, atypical infection or aspiration. 3. No significant effusion or pneumothorax. Daniel Carvajal MD Objective Remarks GENERAL: Patient is 72 yo critically ill intubated, sedated and on multiple pressors. SKIN: Warm and dry. HEAD: Normocephalic. EYES: No scleral icterus. No injection or drainage. NECK: Supple, trachea midline. No JVD or lymphadenopathy. CARDIOVASCULAR: Regular rate and rhythm without murmurs, gallops, or rubs. RESPIRATORY: Breath sounds equal bilaterally. No accessory muscle use. GASTROINTESTINAL: Abdomen soft, non-tender, nondistended. : Cuellar in place with Hematuria. MUSCULOSKELETAL: No cyanosis, +2 edema. Neuro: Sedated, intubated A/P Assessment and Plan 1. Acute hypercapnic and hypoxemic respiratory failure. 2. Septic shock 3. Acute renal failure. 4. Hyponatremia. 5. Leukocytosis with bandemia. 6. Urinary tract infection. 7. Pneumonia/ Gram + bacteremia 8. Paroxysmal atrial fibrillation on Eliquis. 9. Hematuria. 10. COPD. 11. Hypertension. 12. Diabetes mellitus. 13. Hyperlipidemia. 14. History of CVA with residual left-sided hemiparesis. Plan Neuro: On fentanyl and Diprivan infusion for sedation and vent synchrony. Daily sedation vacation when appropriate. CT brain without contrast: No acute abnormalities. Pulm : Continue with vent support and maintain sats above 92%. Bronchodilators, ICU vent bundle. CT chest: Dense right lower lobe airspace consolidation with diffuse patchy nodular airspace disease throughout the remainder of the right lung and at the extreme left lung base. Findings are most consistent with pneumonia, No significant effusion or pneumothorax. CV: Wean off pressors ( Levophed, Vasopressin)keep MAP> 65 mmHg. Echo: In February : EF 55-60%. Lactic acid: 1.9 : Monitor renal function, I/O's and avoid nephrotoxins Cr: 3.31 today from 2.65 on arrival, UOP: 950 ml (Hematuria) CT abdomen/pelvis: No acute findings, no hydro. Renal and Urology consulted. Change IVF- NS @100ml/hr GI:On Protonix 40 mg IV daily for GI prophylaxis. OGT to LIWS- had 300ml bile like gastric drainage overnight. Check KUB abdomen. ID: Continue with abx ( vanco, Zosyn, Azithromycin) Monitor for signs infections (fever and WBC) Pharmacy to adjust doses of abx per renal function. BC 10/ GPC 3/4 bottles. Check BC x 2 sets today. Influenza screening, strep pneumonia and Legionella urinary Ag negative. Follow up on urine cx, check sputum cx Wound care is following for sacral wound ulcers. Endo: Increase SSI to medium scale with Accu-Chek q.4h for glycemic control. Add Levemir 7units BID Heme: Monitor CBC and coags. GI prophylaxis with Protonix 40 mg daily and DVT prophylaxis with SCDs Not on chemical anticoagulation prophylaxis due to hematuria Lines: Right subclavian CVP, Right rad Art line placed 04/10 Patient is critically ill with septic shock, resp failure, ARF, pneumonia, UTI CCT 40 mins Perla Bonds MD Apr 11, 2017 10:39
[2017-04-11 11:38] LABS: APTT (PATIENT) 46.2 SEC (24.3-30.1); INTERNATIONAL NORMALIZED RATIO 1.5 RATIO; PROTHROMBIN TIME - PATIENT 16.8 SEC (9.8-11.6)
[2017-04-11] MEDS: INSULIN DETEMIR 100 UNITS/ML VIAL SQ SCH ×2 (11:40→20:51)
[2017-04-11] MEDS: SODIUM CHLOR 0.9% 1000 ML INJ 1,000 ML IV SCH ×2 (11:56→20:51)
[2017-04-11] MEDS: NOREPINEPHRINE 4 MG/D5W 250 ML IV PRN ×3 (11:56→21:38)
--- NOTE | 2017-04-11 12:04 | RADRPT ---
EXAM DATE/TIME: 04/11/2017 11:42 [facility] COMPARISON: CT ABDOMEN & PELVIS W/O CONTRAST, April 10, 2017, 17:15. CHEST SINGLE AP, April 10, 2017, 22:41. INDICATIONS : Evaluate for obstruction MEDICAL HISTORY : Cardiovascular disease. Hypertension. Diabetes mellitus type 1. SURGICAL HISTORY : Appendectomy. Cholecystectomy ENCOUNTER: Initial ACUITY: 2 days PAIN SCORE: Non-responsive. LOCATION: Abdomen FINDINGS: The examination is performed with mosaic acquisition. The upper abdomen is not included in the field- of-view of the exam. There are several dilated loops of small bowel in the right hypogastric region m easuring up to 5.1 cm in dimension. Some gas is seen in the left colon. The gastric tube tip and side port projected in the right right upper quadrant. Total hip arthroplasty on the right and advanced d egenerative changes in the left hip. CONCLUSION: There are multiple dilated loops of small bowel in the right abdomen. A small bowel obstruction canno t be excluded. Anthony Lockhart MD on April 11, 2017 at 12:00 Board Certified Radiologist. This report was verified electronically.
[2017-04-11] MEDS: SENNOSIDES SYRUP 8.8 MG/5 ML CUP PO SCH (12:30)
--- NOTE | 2017-04-11 12:41 | PD.WCN.NOT ---
Wound Consult Description: Received consult for wound management of sacrum received from Doctor Bonds Communicated with: SYDNEE River [facility], and call placed to Doctor Cammie for orders Recommendation: Please cleanse buttock area with soap and water and pat dry before applying Calazime barrier cream and leave open to air for now. Cleanse stage 2 pressure injury to R ischium with normal saline and pat dry before applying Xeroform in single layer just over wound bed and cover with bordered gauze. Please apply skin prep to periwound before covering wound with bordered gauze dressing. Change dressing daily or PRN if saturated or dislodged Additional Information: Patient seen on [facility] for evaluation of wound management of sacral area. Patient is intubated and sedated at this time.Positioned patient to R side with the assistance of Aleta RANDHAWA [facility] to reveal shallow full thickness wounds to bilateral buttocks that both measure ~3cm x ~1cm x ~0.2cm. Wound beds are noted with ~90% red non granulation tissue and ~10% white tissue.Both wounds are noted with an oval shape and well defined even wound margins.No active drainage or odor is noted from wounds. Wounds appear to be the result or pressure, moisture and friction. Three Deep tissue injures are noted to L buttock all measuring ~1cm x ~6cm. DTIs appear in a linear pattern on L buttock. Another deep tissue injury is seen on R buttock that measures ~1cm x~4cm . Entire bilateral buttocks presents with slight blanchable erythema and denuded peeling skin. R ischial area presents with area of partial thickness skin loss that measures ~10cm x ~6cm x ~ <0.1cm. Wound margins are uneven but defined. Wound also has no active drainage or foul odor at this time. Left all wounds open to air. Xray is in the room waiting to see patient. RN will apply Calazime barrier cream to bilateral buttocks and cover wound to R ischium as recommended above. Recommend [facility] specialty bed for patient with alternating pressure and every 2 hour turns. Gladis Sr [facility] Apr 11, 2017 12:41
--- NOTE | 2017-04-11 13:14 | MB ---
cc: COLIN VENCES DATE OF CONSULTATION: 04/11/2017 This dictation is taken mostly from the chart as the patient is intubated and sedated. HISTORY OF PRESENT ILLNESS She is a 72-year-old female with history of multiple medical problems, who came in, in respiratory failure requiring intubation. She was noted to have an altered mental status and some history of CVA in the past with some residual left-sided hemiparesis. She also has a history of COPD and she has sleep apnea and is on a C-PAP machine at home. On admission she was noted to have gross hematuria and Cuellar catheter was inserted. There is no history of a known gross hematuria in the past. She is on Eliquis however, for her atrial fibrillation. At the bedside today she has a lot of gross hematuria noted and the catheter was irrigated and will require a three-way Cuellar catheter and started on CBI. Her urinalysis on admission was also positive for leuko-esterase and bacteria. PAST MEDICAL HISTORY Her medical history is notable for: 1. CVA with left-sided hemiparesis. 2. Hypertension. 3. Diabetes. 4. Hyperlipidemia. 5. COPD. 6. Obstructive sleep apnea on C-PAP. 7. Paroxysmal atrial fibrillation. PAST SURGICAL HISTORY 1. Appendectomy. 2. Cholecystectomy. 3. Right hip replacement. 4. Hernia repair. FAMILY HISTORY Unable to obtain. She apparently lives with her son. SOCIAL HISTORY No history of alcohol or illicit drug use, per the record. ALLERGIES She has no allergies. MEDICATION For medications please refer to the chart. REVIEW OF SYSTEMS Unable to obtain due to currently intubated and sedated. PHYSICAL EXAMINATION GENERAL: She is an obese 72-year-old female intubated and sedated. HEENT: Pupils are equal and round. NECK: Neck is supple. LUNGS: Breath sounds bilaterally. ABDOMEN: Soft, nontender, nondistended. : Normal female external genitalia with Cuellar catheter in place draining gross hematuria. EXTREMITIES: Show 1+ edema. VITAL SIGNS: 95, pulse was 77, blood pressure 101/36, FIO2 is 40%, respiratory rate was 16. LABORATORY VALUES White count 19.8, hemoglobin 8.8, hematocrit 27.1, platelet count of 652. Sodium 130, potassium 3.7, chloride 91, CO2 24.5, BUN 86, creatinine 3.3, glucose of 313, creatinine was 3.31. Urinalysis shows large leuko-esterase with numerous red and white cells, PT is 16.8, INR is 1.5, PTT is 46.2. IMAGING STUDIES She had a CT scan of the abdomen and pelvis which showed normal upper tracts and there were no acute findings of the abdomen or pelvis. ASSESSMENT A 72-year-old female admitted with acute respiratory failure, currently intubated, sedated with gross hematuria. This could be to traumatic Cuellar during catheterization. Will place a 24 three-way Cuellar catheter and start her on CBI. If possible would hold anticoagulation until hematuria resolves and will follow closely with you. Will plan cystoscopy if hematuria persists but would like to check urine culture first as blood cultures are positive with gram-positive cocci noted. Will follow with you. Colin LYNN /12:41 PM /12:52 PM
--- NOTE | 2017-04-11 14:39 | PD.CONS ---
HPI History of Present Illness This is a 72 year old female with a history of CVA with left sided weakness, paroxysmal atrial fibrillation, COPD, hypertension, diabetes, sleep apnea, and hyperlipidemia who was brought to the emergency room for evaluation of nausea, vomiting, respiratory distress, and altered mental status. She arrived to the ER on a nonrebreather mask, but was still having difficulty breathing and required intubation with mechanical ventilation. She was admitted for acute respiratory failure, septic shock, acute renal failure with electrolyte abnormalities, UTI, pneumonia, hematuria, and her chronic medical problems. She was evaluated with CT scan abdomen and pelvis (04/10/17)----> Mild fluid and gaseous distention of small bowel, mainly the proximal small bowel. No acute focal findings in the abdomen or pelvis on noncontrast evaluation. GI was consulted for further evaluation and treatment. She is currently sedated on the ventilator and unable to provide any history. She has an OGT to Bosideng and this has put out about 500-600cc of dark green bilious gastric secretions. Her abdomen is soft, mildly distended. She was here in February of 2017 for sepsis secondary to pneumonia and urinary tract infection, acute respiratory failure, acute kidney injury, paroxysmal atrial fibrillation, and anemia and we evaluated her at that time for anemia with hemoccult (+) stool. She underwent EGD (02/26/17)---> the esophagus was otherwise normal, multiple small ulcers were found in the prepyloric region of the stomach and at the pylorus; biopsies were taken. Food residue in the gastric fundus, cardia, and gastric body, normal duodenal mucosa in the bulb and second portion of the duodenum, retroflexion was performed and was normal. Pathology revealed moderate chronic active gastritis with features of ulceration and associated reactive epithelial changes negative for H. pylori. (Esther Wells) PFSH Past Medical History Paroxysmal atrial fibrillation, chronic anticoagulation Objective sleep apnea, on home C Pap Diabetes mellitus Hypertension Hyperlipidemia Stroke with residual left-sided hemiparesis COPD Incontinent of urine Hx PUD Past Surgical History Hernia repair Appendectomy Cholecystectomy Right hip replacement EGD (Esther Wells) Coded Allergies: *MDRO Multi-Drug Resistant Organism (Verified Adverse Reaction, Unknown, ) MRSA PCR Screen POSITIVE - 10/24/2016 MRSA (sputum)-10/24/16 Medications Allergies Coded Allergies Type Severity Reaction Last Updated Verified *MDRO Multi-Drug Resistant Organism Adverse Reaction Unknown 10/29/16 Yes Active Scripts Medications Dose Route/Sig Max Daily Dose Days Date Category Albuterol Neb (Albuterol Sulfate) 2.5 Mg/3 Ml Neb 2.5 Mg INH Q6HR NEB PRN 03/05/17 Rx Lactobacillus Acidophilus 1 Billion Cell Tab 1 Tab PO TIDAC 03/05/17 Rx Hydrocodone-Acetaminophen 5-325 mg Tab 1 Tab PO Q6HR PRN 03/05/17 Rx Furosemide 40 Mg Tab 40 Mg PO DAILY 11/07/16 Rx Pantoprazole (Pantoprazole Sodium) 40 Mg Tab 40 Mg PO Q24H 11/07/16 Rx Cardizem (Diltiazem HCl) 30 Mg Tab 60 Mg PO Q8HR 11/07/16 Rx Eliquis (Apixaban) 5 Mg Tab 5 Mg PO BID 11/07/16 Rx Family History Mother of cancer. Social History Uses snuff No history of alcohol or illicit drug use (Esther Wells) Review of Systems ROS Unable to obtain (Esther Wells) GI Exam Vitals I&O Vital Signs Date Time Temp Pulse Resp B/P (MAP) Pulse Ox O2 Delivery O2 Flow Rate FiO2 04/11/17 12:45 76 16 120/44 (69) 99 04/11/17 12:30 76 16 119/44 (69) 99 04/11/17 12:27 99 40 04/11/17 12:15 76 17 122/46 (71) 99 04/11/17 12:00 97.1 77 8 122/60 (80) 99 105/39 (61) 04/11/17 12:00 86 04/11/17 12:00 40 04/11/17 11:56 77 101/36 04/11/17 11:45 81 20 105/36 (59) 97 04/11/17 11:30 75 15 108/39 (62) 99 04/11/17 11:15 81 18 109/41 (63) 99 04/11/17 11:00 77 15 106/54 (71) 99 94/40 (58) 04/11/17 10:45 86 21 111/42 (65) 98 04/11/17 10:30 83 18 107/40 (62) 98 04/11/17 10:15 97 31 131/51 (77) 95 04/11/17 10:00 86 04/11/17 10:00 81 17 143/64 (90) 100 130/51 (77) 04/11/17 09:45 82 17 127/50 (75) 100 04/11/17 09:30 79 18 127/60 (82) 100 126/52 (76) 04/11/17 09:15 80 17 96/39 (58) 100 04/11/17 09:00 83 15 133/62 (85) 100 125/52 (76) 04/11/17 08:45 83 17 127/49 (75) 100 04/11/17 08:30 81 16 143/67 (92) 100 131/53 (79) 04/11/17 08:20 100 40 04/11/17 08:15 80 16 133/50 (77) 100 04/11/17 08:00 85 04/11/17 08:00 97.8 82 16 143/64 (90) 100 136/60 (85) 04/11/17 08:00 40 04/11/17 07:30 83 132/54 04/11/17 07:30 83 132/54 04/11/17 06:00 85 04/11/17 04:25 98.5 102 16 151/58 99 04/11/17 04:00 40 04/11/17 04:00 98.5 92 16 127/58 (81) 100 106/45 (65) 04/11/17 04:00 92 04/11/17 03:49 99 40 04/11/17 02:22 98.5 94 17 131/44 99 04/11/17 02:06 98.0 100 17 139/51 98 04/11/17 02:00 102 04/11/17 00:29 107 126/40 04/11/17 00:01 99 40 04/11/17 00:00 40 04/11/17 00:00 98.0 101 16 139/63 (88) 100 138/51 (80) 04/11/17 00:00 101 04/10/17 22:00 82 04/10/17 20:33 80 80/50 04/10/17 20:00 82 04/10/17 20:00 40 04/10/17 20:00 98.5 82 15 97/47 (64) 100 04/10/17 19:32 100 40 04/10/17 18:00 98.7 84 14 86/48 (61) 100 04/10/17 18:00 40 04/10/17 18:00 86 04/10/17 17:14 98 40 04/10/17 16:55 94 20 104/51 (68) 100 Ventilator 40 04/10/17 16:41 40 04/10/17 16:41 94 20 101/54 (70) 98 Ventilator 40 04/10/17 16:11 93 20 81/44 (56) 100 Ventilator 100 04/10/17 15:22 100 04/10/17 15:16 100 100 04/10/17 15:12 93 Non-Rebreather 15.00 04/10/17 15:12 93 04/10/17 15:07 93 Non-Rebreather 15.00 04/10/17 14:59 98.6 140 36 157/74 (101) 93 I/O 04/10/17 04/10/17 04/10/17 04/11/17 04/11/17 04/11/17 07:00 15:00 23:00 07:00 15:00 23:00 Intake Total 6005 ml 840 ml 1269 ml Output Total 1050 ml 200 ml Balance 4955 ml 640 ml 1269 ml Intake IV Total 6005 ml 1269 ml Packed Cells 800 ml Blood Product IV Normal Saline Flush 40 ml Output Urine Total 900 ml 50 ml Gastric Drainage Total 150 ml 150 ml Imaging Last Impressions Abdomen X-Ray 04/11/17 0000 Signed Impressions: Service Date/Time: April 11:42 - CONCLUSION: There are multiple dilated loops of small bowel in the right abdomen. A small bowel obstruction cannot be excluded. Anthony Lockhart MD Head CT 04/10/17 1648 Signed Impressions: Service Date/Time: Monday, April 10, 2017 17:11 - CONCLUSION: 1. No acute intracranial abnormality or significant interval change. Daniel Carvajal MD Abdomen/Pelvis CT 04/10/17 162 Signed Impressions: Service Date/Time: Monday, April 10, 2017 17:15 - CONCLUSION: Mild fluid and gaseous distention of small bowel, mainly the proximal small bowel. No acute focal findings in the abdomen or pelvis on noncontrast evaluation. King Shi MD Chest X-Ray 04/10/17 1503 Signed Impressions: Service Date/Time: Monday, April 10, 2017 15:21 - CONCLUSION: 1. Satisfactory position of endotracheal tube as above. Tj Chow MD Chest CT 04/10/17 0000 Signed Impressions: Service Date/Time: Monday, April 10, 2017 17:15 - CONCLUSION: 1. ETT just above the [place]. 2. Dense right lower lobe airspace consolidation with diffuse patchy nodular airspace disease throughout the remainder of the right lung and at the extreme left lung base. Findings are most consistent with pneumonia, atypical infection or aspiration. 3. No significant effusion or pneumothorax. Daniel Carvajal MD Laboratory Test 04/10/17 15:15 04/10/17 15:55 04/10/17 16:05 04/10/17 19:00 White Blood Count 17.1 TH/MM3 Red Blood Count 3.25 MIL/MM3 Hemoglobin 8.6 GM/DL Hematocrit 27.3 % Mean Corpuscular Volume 84.1 FL Mean Corpuscular Hemoglobin 26.5 PG Mean Corpuscular Hemoglobin Concent 31.5 % Red Cell Distribution Width 20.3 % Platelet Count 729 TH/MM3 Mean Platelet Volume 8.3 FL Neutrophils (%) (Auto) 74.1 % Lymphocytes (%) (Auto) 19.1 % Monocytes (%) (Auto) 5.8 % Eosinophils (%) (Auto) 0.9 % Basophils (%) (Auto) 0.1 % Neutrophils # (Auto) 12.7 TH/MM3 Lymphocytes # (Auto) 3.3 TH/MM3 Monocytes # (Auto) 1.0 TH/MM3 Eosinophils # (Auto) 0.2 TH/MM3 Basophils # (Auto) 0.0 TH/MM3 CBC Comment AUTO DIFF Differential Total Cells Counted 100 Neutrophils % (Manual) 53 % Band Neutrophils % 26 % Lymphocytes % 14 % Monocytes % 4 % Neutrophils # (Manual) 14.0 TH/MM3 Metamyelocytes 2 % Myelocytes 1 % Differential Comment FINAL DIFF MANUAL Platelet Estimate HIGH Platelet Morphology Comment NORMAL Spherocytes 1+ Ovalocytes Stomatocytes 2+ Prothrombin Time 17.4 SEC Prothromb Time International Ratio 1.5 RATIO Activated Partial Thromboplast Time 49.4 SEC Blood Urea Nitrogen 91 MG/DL Creatinine 3.65 MG/DL Random Glucose 139 MG/DL Total Protein 7.4 GM/DL Albumin 1.7 GM/DL Calcium Level 7.2 MG/DL Phosphorus Level 7.0 MG/DL Magnesium Level 1.7 MG/DL Alkaline Phosphatase 331 U/L Aspartate Amino Transf (AST/SGOT) 27 U/L Alanine Aminotransferase (ALT/SGPT) 12 U/L Total Bilirubin 1.0 MG/DL Sodium Level 130 MEQ/L Potassium Level 4.8 MEQ/L Chloride Level 88 MEQ/L Carbon Dioxide Level 31.9 MEQ/L Anion Gap 10 MEQ/L Estimat Glomerular Filtration Rate 12 ML/MIN Lactic Acid Level 1.9 mmol/L Protein Corrected Calcium 7.1 MG/DL Total Creatine Kinase 35 U/L Troponin I 0.07 NG/ML B-Type Natriuretic Peptide 126 PG/ML Lipase 37 U/L Urine Color YELLOW Urine Turbidity CLOUDY Urine pH 8.0 Urine Specific Raymond 1.015 Urine Protein 100 mg/dL Urine Glucose (UA) NEG mg/dL Urine Ketones NEG mg/dL Urine Occult Blood MOD Urine Nitrite NEG Urine Bilirubin NEG Urine Urobilinogen LESS THAN 2.0 MG/DL Urine Leukocyte Esterase LARGE Urine RBC /hpf Urine WBC /hpf Urine WBC Clumps OCC Urine Bacteria MANY /hpf Microscopic Urinalysis Comment CATH-CULTURE IND Blood Gas Puncture Site RT RADIAL Blood Gas Patient Temperature 98.6 Blood Gas HCO3 28 mmol/L Blood Gas Base Excess 3.4 mmol/L Blood Gas Oxygen Saturation 97 % Arterial Blood pH 7.36 Arterial Blood Partial Pressure CO2 51 mmHg Arterial Blood Partial Pressure O2 322 mmHG Arterial Blood Oxygen Content 10.7 Vol % Arterial Blood Carboxyhemoglobin 2.0 % Arterial Blood Methemoglobin 0.7 % Blood Gas Hemoglobin 7.2 G/DL Oxygen Delivery Device VENTILATOR Blood Gas Ventilator Setting Blood Gas Inspired Oxygen 100 % Nasal Screen MRSA (PCR) MRSA DETECTED Test 04/10/17 22:55 04/10/17 22:57 04/11/17 04:30 04/11/17 11:10 Blood Gas Puncture Site LT RADIAL Blood Gas Patient Temperature 98.6 Blood Gas HCO3 24 mmol/L Blood Gas Base Excess -0.9 mmol/L Blood Gas Oxygen Saturation 94 % Arterial Blood pH 7.38 Arterial Blood Partial Pressure CO2 41 mmHg Arterial Blood Partial Pressure O2 98 mmHg Arterial Blood Oxygen Content 9.7 Vol % Arterial Blood Carboxyhemoglobin 2.1 % Arterial Blood Methemoglobin 1.3 % Blood Gas Hemoglobin 7.2 G/DL Oxygen Delivery Device VENTILATOR Blood Gas Ventilator Setting SEE COMMENT Blood Gas Inspired Oxygen 40 % White Blood Count 19.3 TH/MM3 19.8 TH/MM3 Red Blood Count 2.64 MIL/MM3 3.18 MIL/MM3 Hemoglobin 7.0 GM/DL 8.8 GM/DL Hematocrit 22.4 % 27.1 % Mean Corpuscular Volume 84.8 FL 85.4 FL Mean Corpuscular Hemoglobin 26.4 PG 27.7 PG Mean Corpuscular Hemoglobin Concent 31.1 % 32.5 % Red Cell Distribution Width 20.9 % 19.9 % Platelet Count 742 TH/MM3 652 TH/MM3 Mean Platelet Volume 8.9 FL 8.7 FL Blood Urea Nitrogen 86 MG/DL 86 MG/DL Creatinine 3.40 MG/DL 3.31 MG/DL Random Glucose 216 MG/DL 313 MG/DL Total Protein 6.0 GM/DL 6.1 GM/DL Calcium Level 6.5 MG/DL 6.5 MG/DL Sodium Level 132 MEQ/L 130 MEQ/L Potassium Level 3.9 MEQ/L 3.7 MEQ/L Chloride Level 92 MEQ/L 91 MEQ/L Carbon Dioxide Level 26.1 MEQ/L 24.5 MEQ/L Anion Gap 14 MEQ/L 15 MEQ/L Estimat Glomerular Filtration Rate 13 ML/MIN 14 ML/MIN Protein Corrected Calcium 7.0 MG/DL 7.0 MG/DL Neutrophils (%) (Auto) 76.1 % Lymphocytes (%) (Auto) 17.7 % Monocytes (%) (Auto) 5.2 % Eosinophils (%) (Auto) 0.9 % Basophils (%) (Auto) 0.1 % Neutrophils # (Auto) 15.1 TH/MM3 Lymphocytes # (Auto) 3.5 TH/MM3 Monocytes # (Auto) 1.0 TH/MM3 Eosinophils # (Auto) 0.2 TH/MM3 Basophils # (Auto) 0.0 TH/MM3 CBC Comment AUTO DIFF Differential Total Cells Counted 100 Neutrophils % (Manual) 59 % Band Neutrophils % 12 % Lymphocytes % 24 % Monocytes % 3 % Neutrophils # (Manual) 14.5 TH/MM3 Metamyelocytes 1 % Myelocytes 1 % Differential Comment FINAL DIFF MANUAL Toxic Granulation 2+ Dohle Bodies PRESENT Platelet Estimate HIGH Platelet Morphology Comment NORMAL Albumin 1.5 GM/DL Alkaline Phosphatase 282 U/L Aspartate Amino Transf (AST/SGOT) 23 U/L Alanine Aminotransferase (ALT/SGPT) 10 U/L Total Bilirubin 0.8 MG/DL Prothrombin Time 16.8 SEC Prothromb Time International Ratio 1.5 RATIO Activated Partial Thromboplast Time 46.2 SEC Date/Time Source Procedure Growth Status 04/11/17 11:18 Blood Peripheral Aerobic Blood Culture Pending Received 04/11/17 11:18 Blood Peripheral Anaerobic Blood Culture Pending Received 04/10/17 15:55 Nasal Aspirate Influenza Types A,B Antigen (CHRISTIANO) - Final NEGATIVE FOR FLU A AND B ANTIGEN.... Complete 04/10/17 15:55 Urine Catheterized Urine Legionella Antigen - Final PRESUMPTIVE NEGATIVE FOR LEGIONELLA P... Complete 04/10/17 15:55 Urine Catheterized Urine Streptococcus pneumoniae Antigen (M - Final PRESUMPTIVE NEGATIVE FOR STREPTOCOCCU... Complete Physical Examination HEENT: Normocephalic; atraumatic; no jaundice CHEST: Resp even/unlabored. OETT to vent. Diminished bsaes. CARDIAC: RRR ABDOMEN: Soft, mildly distended, bowel sounds present, OGT to LIWS- dark green bilious material. EXTREMITIES: BLE edema. : Santoyo cath with hematuria SKIN: Skin cool STABLE ATTENDANT: Sedated on vent. (Esther Wells) Assessment and Plan Plan ASSESSMENT: - Ileus, mild. Pt came to the ER with nausea/vomiting, respiratory distress, AMS. CT scan abdomen and pelvis (04/10/17)----> Mild fluid and gaseous distention of small bowel, mainly the proximal small bowel. No acute focal findings in the abdomen or pelvis on noncontrast evaluation. OGT to LIWS, 500-600cc of dark green bilious gastric secretions. NPO. - Acute respiratory failure, PNA, COPD, LAXMI. Vent per CCM - Sepsis with leukocytosis, UTI, PNA. Rpt. BCx pending, urine neg for legionella/streptococcus, ur cx GNR, BCx GPC. Vanco, Zosyn, Azithromycin. - Hematuria. following, ? traumatic santoyo placement. Plan is to start CBI. Plan for cystoscopy if hematuria continues. - Anemia. .03/03.1. S/P EGD (02/26/17)---> the esophagus was otherwise normal, multiple small ulcers were found in the prepyloric region of the stomach and at the pylorus; biopsies were taken. Food residue in the gastric fundus, cardia, and gastric body, normal duodenal mucosa in the bulb and second portion of the duodenum, retroflexion was performed and was normal. Pathology revealed moderate chronic active gastritis with features of ulceration and associated reactive epithelial changes negative for H. pylori. - CVA, Paroxysmal atrial fibrillation. - HIRAM with electrolyte abnormalities, Creat 3.31. - DM, Hyperlipidemia per attending PLAN: - NPO - OGT to LIWS - Add protonix 40mg iv daily - Reglan 5mg IV q8h - Miralax 17gram per OGT daily - Stool studies - KUB in am - Supportive care - Further recommendations to follow based on results of above - Pt seen and examined by Dr. Bronson and myself and this note is written on his behalf (Esther Wells) Physician Comments seen, examined agree with above (Helen Bronson MD) Esther Wells Apr 11, 2017 14:39 Helen Bronson MD Apr 11, 2017 20:32
--- NOTE | 2017-04-11 14:56 | EKG ---
Date Performed: 04/10/2017 Time Performed: 15:33:52 PTAGE: 72 years EKG: Sinus tachycardia NONSPECIFIC ST & T-WAVE ABNORMALITY ABNORMAL ECG PREVIOUS TRACING 02/24/17 Since previous tracing, sinus rate is faster. DOCTOR: Anton Mesa Interpretating Date/Time 04/11/2017 14:55:40
--- NOTE | 2017-04-11 15:44 | MB ---
cc: MARIZOL STEWART MD DATE OF CONSULTATION: 04/11/2017 REASON FOR CONSULTATION Elevated BUN and creatinine and hyponatremia. HISTORY OF PRESENT ILLNESS This is a 72-year-old female known to me from her last admission when she was admitted in October of this year with past medical history of hypertension, diabetes mellitus, chronic kidney disease, history of cerebrovascular accident, hyperlipidemia, sleep apnea, atrial fibrillation, was admitted with altered mental status. I was called to see the patient because of elevated BUN and creatinine. I saw her when she was here in October and at that time her creatinine was as high as 2.8 and then it improved to around 1.4-1.6. She has been admitted again in February and her creatinine was around 1.6-1.7 which is probably her baseline and this time she was admitted with creatinine of 3.6. The patient is intubated and she was found in respiratory distress and was retaining CO2. Most of the history was taken from the patient's chart, according to which the patient has leukocytosis and she was diagnosed with possible aspiration pneumonia and she has been getting antibiotics, currently she is on vancomycin and azithromycin along with Zosyn. The patient has been nonoliguric. Her creatinine is coming down, sodium is also on the lower side 130-132 and calcium is also low. PAST MEDICAL HISTORY 1. Hypertension. 2. Diabetes mellitus. 3. Chronic kidney disease, cerebrovascular accident. 4. Sleep apnea with COPD. 5. Atrial fibrillation. PAST SURGICAL HISTORY 1. Cholecystectomy. 2. Appendicectomy. 3. Right hip replacement. 4. Hernia repair. REVIEW OF SYSTEMS Review of systems cannot be taken since the patient is intubated. SOCIAL HISTORY There is no history of smoking or alcoholism. FAMILY HISTORY Noncontributory. ALLERGIES She has no known drug allergies. MEDICATIONS Currently she is on: 1. Normal saline at ___ an hour. 2. Vasopressin. 3. Leda-Colace one tablet b.i.d. 4. Senna 8.8 mg daily. 5. DuoNeb nebulizer. 6. Insulin detemir 7 units q. 12-hours. 7. Azithromycin 500 mg q. 24-hours. 8. Vancomycin 1 gram q.48 hours. 9. Zosyn 2.25 grams IV q. 6-hours. PHYSICAL EXAMINATION GENERAL: On examination the patient is intubated and sedated and on the ventilator. VITAL SIGNS: Her last blood pressure is 120/44. She has hypotension off and on. Blood pressure on arrival was as low as 81/44. HEENT: Pupils are mid constricted. Nonicteric sclerae, conjunctivae pale. NECK: Supple. JVD is slightly elevated. LUNGS: The patient has bilateral decreased air entry with basilar rales and scattered wheezing. HEART: S1, S2, regular rhythm. ABDOMEN: Abdomen is soft, lax, distended. There is no tenderness. Bowel sounds positive. EXTREMITIES: She has mild edema in both legs. INVESTIGATION WBC count is 19.8, hemoglobin 8.8, platelet count of 652, neutrophils 76.1%. Sodium 130, potassium 3.7, chloride 91, bicarb 24.5, BUN 86, creatinine 3.3. Calcium corrected is 7.0, AST, ALT normal, alkaline phosphatase 282. Urine culture showing gram-negative rods and blood culture showing gram-positive cocci. IMAGING STUDIES The patient has abdominal x-ray done which shows multiple dilated loops of bowel. CT scan of the head was done without IV contrast and shows no acute abnormality or any interval changes. CT scan of the abdomen and pelvis was done without IV contrast and it shows mild fluid and gaseous distension of the small bowel, bladder was decompressed with a Cuellar catheter, kidney is showing right kidney has renal cyst, no evidence of hydronephrosis. Chest x-ray was done and shows that she has elevation of right hemidiaphragm with some atelectasis. ASSESSMENT/PLAN 1. Chronic kidney disease with acute kidney injury. 2. Hyponatremia. 3. Hypocalcemia. 4. Pneumonia. 5. Respiratory failure. 6. Anemia. 7. Urinary tract infection. 8. Sepsis and hypotension. The patient has chronic kidney disease, developed acute kidney injury, the etiology of chronic kidney disease is most likely related to hypertensive or diabetic renal disease and developed acute kidney injury because of the ATN from hypotension or from the infection. At present she has been nonoliguric. She has hematuria, seen by urology. Creatinine is slightly improving. Continue the IV hydration and antibiotics. Follow the vancomycin level and follow the sensitivity of the cultures. I will add calcium supplement and Fosrenol for hypocalcemia and hyperphosphatemia. Thank you for the consultation. MD CARMEN Rowan/TLL /2:11 PM /3:06 PM
[2017-04-11] MEDS: fentaNYL DRIP 250 ML IV PRN (16:00)
--- NOTE | 2017-04-11 16:00 | PD.ID.CON ---
History of Present Illness Service ID Consult Requested By Dr Dubois Reason for Consult severe sepsis septick shock, UTI, gram + bacteremia Primary Care Physician Handy Nails MD Diagnoses: History of Present Illness Pt is sedated int'd on mech vent'n - unable to provide history The patient is a 72-year-old female with multiple medical comorbidities presented to [facility] ED yday with altered mental status and emesis for 1 day Pt presetned with rapidly progressive hypoxia and on admission day was intubated and placed on mechanical ventilation. She was found to have leukocytosis with a WBC of 17.1 with bandemia of 26%. Her urinalysis was positive for leukocyte esterase, moderate blood and many bacteria, culture today growing a GNB Pt developped gross hematuria and urologist was consulted Patient became hypotensive overnight started on Levophed and Vasopressin.S She remains intubated. Afebrile. Her blood clx from yesterday growing ENTEROCOCCUS FAECALIS in 3/[address] of the chest showed Dense right lower lobe airspace consolidation with diffuse patchy nodular airspace disease throughout the remainder of the right lung and at the extreme left lung base, most consistent with pneumonia, atypical infection or aspiration. CT abdomen with dilated small bowel loops Review of Systems ROS Limitations: Clinical Condition, Intubated, Altered Mental Status, Unresponsive Past Family Social History Allergies: Coded Allergies: *MDRO Multi-Drug Resistant Organism (Verified Adverse Reaction, Unknown, ) MRSA PCR Screen POSITIVE - 10/24/2016 MRSA (sputum)-10/24/16 Past Medical History hypertension, diabetes mellitus, hyperlipidemia, obstructive sleep apnea on C- PAP machine at home, COPD, CVA with residual left-sided hemiparesis Past Surgical History 1. Appendectomy. 2. Cholecystectomy. 3. Right hip replacement. 4. Hernia repair. Active Ordered Medications Medications where reviewed in EMR Antibiotics Include: azithromycin zosyn vancomycin Family History Unable to obtain. She lives with her son. Social History No history of alcohol or illicit drug use, per the record. Physical Exam Vital Signs Vital Signs Date Time Temp Pulse Resp B/P (MAP) Pulse Ox O2 Delivery O2 Flow Rate FiO2 04/11/17 12:45 76 16 120/44 (69) 99 04/11/17 12:30 76 16 119/44 (69) 99 04/11/17 12:27 99 40 04/11/17 12:15 76 17 122/46 (71) 99 04/11/17 12:00 97.1 77 8 122/60 (80) 99 105/39 (61) 04/11/17 12:00 86 04/11/17 12:00 40 04/11/17 11:56 77 101/36 04/11/17 11:45 81 20 105/36 (59) 97 04/11/17 11:30 75 15 108/39 (62) 99 04/11/17 11:15 81 18 109/41 (63) 99 04/11/17 11:00 77 15 106/54 (71) 99 94/40 (58) 04/11/17 10:45 86 21 111/42 (65) 98 04/11/17 10:30 83 18 107/40 (62) 98 04/11/17 10:15 97 31 131/51 (77) 95 04/11/17 10:00 86 04/11/17 10:00 81 17 143/64 (90) 100 130/51 (77) 04/11/17 09:45 82 17 127/50 (75) 100 04/11/17 09:30 79 18 127/60 (82) 100 126/52 (76) 04/11/17 09:15 80 17 96/39 (58) 100 04/11/17 09:00 83 15 133/62 (85) 100 125/52 (76) 04/11/17 08:45 83 17 127/49 (75) 100 04/11/17 08:30 81 16 143/67 (92) 100 131/53 (79) 04/11/17 08:20 100 40 04/11/17 08:15 80 16 133/50 (77) 100 04/11/17 08:00 85 04/11/17 08:00 97.8 82 16 143/64 (90) 100 136/60 (85) 04/11/17 08:00 40 04/11/17 07:30 83 132/54 04/11/17 07:30 83 132/54 04/11/17 06:00 85 04/11/17 04:25 98.5 102 16 151/58 99 04/11/17 04:00 40 04/11/17 04:00 98.5 92 16 127/58 (81) 100 106/45 (65) 04/11/17 04:00 92 04/11/17 03:49 99 40 04/11/17 02:22 98.5 94 17 131/44 99 04/11/17 02:06 98.0 100 17 139/51 98 04/11/17 02:00 102 04/11/17 00:29 107 126/40 04/11/17 00:01 99 40 04/11/17 00:00 40 04/11/17 00:00 98.0 101 16 139/63 (88) 100 138/51 (80) 04/11/17 00:00 101 04/10/17 22:00 82 04/10/17 20:33 80 80/50 04/10/17 20:00 82 04/10/17 20:00 40 04/10/17 20:00 98.5 82 15 97/47 (64) 100 04/10/17 19:32 100 40 04/10/17 18:00 98.7 84 14 86/48 (61) 100 04/10/17 18:00 40 04/10/17 18:00 86 04/10/17 17:14 98 40 04/10/17 16:55 94 20 104/51 (68) 100 Ventilator 40 04/10/17 16:41 40 04/10/17 16:41 94 20 101/54 (70) 98 Ventilator 40 04/10/17 16:11 93 20 81/44 (56) 100 Ventilator 100 Physical Exam CONSTITUTIONAL/GENERAL: This is a morbidly obese patient, in no apparent distress. Int'd on [facility] vent'n TUBES/LINES/DRAINS: SKIN: No jaundice, rashes, or lesions. Skin temperature appropriate. Not diaphoretic. HEAD: Atraumatic. Normocephalic. EYES: Pupils equal and round and reactive. Extraocular motions intact. No scleral icterus. No injection or drainage. Fundi not examined. ENT: Hearing no tested . Nose without bleeding or purulent drainage. Oral mucosae dryish w/o without visible erythema, exudates, masses, or lesions. Orally intubated NECK: Trachea midline. Supple, nontender. CARDIOVASCULAR: Regular rate and rhythm without murmurs, gallops, or rubs. No JVD. Peripheral pulses symmetric. RESPIRATORY/CHEST: Symmetric, unlabored respirations. Clear to auscultation. Breath sounds equal bilaterally. No wheezes, rales, or rhonchi. GASTROINTESTINAL: Abdomen soft, non-tender, very distended. No hepato- splenomegaly, or palpable masses. No guarding. Bowel sounds present. GENITOURINARY: Without palpable bladder distension. Cuellar catheter in place with yosi dark blood in it MUSCULOSKELETAL: Extremities without clubbing, cyanosis, + chronic appering edema with nella of hyperpigmentation and try bark neely . No joint tenderness or effusion noted. No calf tenderness. No mottling or clubbing. LYMPHATICS: No palpable cervical or supraclavicular adenopathy. NEUROLOGICAL: Sedated. Unresponsive. PSYCHIATRIC: Unable to assess Laboratory Laboratory Tests Test 04/10/17 15:55 04/10/17 16:05 04/10/17 19:00 04/10/17 22:55 Urine Color YELLOW Urine Turbidity CLOUDY Urine pH 8.0 Urine Specific [place] 1.015 Urine Protein 100 Urine Glucose (UA) NEG Urine Ketones NEG Urine Occult Blood MOD Urine Nitrite NEG Urine Bilirubin NEG Urine Urobilinogen LESS THAN 2.0 Urine Leukocyte Esterase LARGE Urine RBC Urine WBC Urine WBC Clumps OCC Urine Bacteria MANY Microscopic Urinalysis Comment CATH-CULTURE IND Blood Gas Puncture Site RT RADIAL LT RADIAL Blood Gas Patient Temperature 98.6 98.6 Blood Gas HCO3 28 24 Blood Gas Base Excess 3.4 -0.9 Blood Gas Oxygen Saturation 97 94 Arterial Blood pH 7.36 7.38 Arterial Blood Partial Pressure CO2 51 41 Arterial Blood Partial Pressure O2 322 98 Arterial Blood Oxygen Content 10.7 9.7 Arterial Blood Carboxyhemoglobin 2.0 2.1 Arterial Blood Methemoglobin 0.7 1.3 Blood Gas Hemoglobin 7.2 7.2 Oxygen Delivery Device VENTILATOR VENTILATOR Blood Gas Ventilator Setting SEE COMMENT Blood Gas Inspired Oxygen 100 40 Nasal Screen MRSA (PCR) MRSA DETECTED Test 04/10/17 22:57 04/11/17 04:30 04/11/17 11:10 White Blood Count 19.3 19.8 Red Blood Count 2.64 3.18 Hemoglobin 7.0 8.8 Hematocrit 22.4 27.1 Mean Corpuscular Volume 84.8 85.4 Mean Corpuscular Hemoglobin 26.4 27.7 Mean Corpuscular Hemoglobin Concent 31.1 32.5 Red Cell Distribution Width 20.9 19.9 Platelet Count 742 652 Mean Platelet Volume 8.9 8.7 Blood Urea Nitrogen 86 86 Creatinine 3.40 3.31 Random Glucose 216 313 Total Protein 6.0 6.1 Calcium Level 6.5 6.5 Sodium Level 132 130 Potassium Level 3.9 3.7 Chloride Level 92 91 Carbon Dioxide Level 26.1 24.5 Anion Gap 14 15 Estimat Glomerular Filtration Rate 13 14 Protein Corrected Calcium 7.0 7.0 Neutrophils (%) (Auto) 76.1 Lymphocytes (%) (Auto) 17.7 Monocytes (%) (Auto) 5.2 Eosinophils (%) (Auto) 0.9 Basophils (%) (Auto) 0.1 Neutrophils # (Auto) 15.1 Lymphocytes # (Auto) 3.5 Monocytes # (Auto) 1.0 Eosinophils # (Auto) 0.2 Basophils # (Auto) 0.0 CBC Comment AUTO DIFF Differential Total Cells Counted 100 Neutrophils % (Manual) 59 Band Neutrophils % 12 Lymphocytes % 24 Monocytes % 3 Neutrophils # (Manual) 14.5 Metamyelocytes 1 Myelocytes 1 Differential Comment FINAL DIFF MANUAL Toxic Granulation 2+ Dohle Bodies PRESENT Platelet Estimate HIGH Platelet Morphology Comment NORMAL Albumin 1.5 Alkaline Phosphatase 282 Aspartate Amino Transf (AST/SGOT) 23 Alanine Aminotransferase (ALT/SGPT) 10 Total Bilirubin 0.8 Prothrombin Time 16.8 Prothromb Time International Ratio 1.5 Activated Partial Thromboplast Time 46.2 Date/Time Source Procedure Growth Status 04/11/17 11:18 Blood Peripheral Aerobic Blood Culture Pending Received 04/11/17 11:18 Blood Peripheral Anaerobic Blood Culture Pending Received 04/10/17 15:55 Nasal Aspirate Influenza Types A,B Antigen (CHRISTIANO) - Final NEGATIVE FOR FLU A AND B ANTIGEN.... Complete 04/10/17 15:55 Urine Catheterized Urine Legionella Antigen - Final PRESUMPTIVE NEGATIVE FOR LEGIONELLA P... Complete 04/10/17 15:55 Urine Catheterized Urine Streptococcus pneumoniae Antigen (M - Final PRESUMPTIVE NEGATIVE FOR STREPTOCOCCU... Complete Result Diagram: 04/11/17 0430 04/11/17 0430 Imaging Last Impressions Abdomen X-Ray 04/11/17 0000 Signed Impressions: Service Date/Time: April 11:42 - CONCLUSION: There are multiple dilated loops of small bowel in the right abdomen. A small bowel obstruction cannot be excluded. Anthony Lockhart MD Head CT 04/10/17 1648 Signed Impressions: Service Date/Time: Monday, April 10, 2017 17:11 - CONCLUSION: 1. No acute intracranial abnormality or significant interval change. Daniel Carvajal MD Abdomen/Pelvis CT 04/10/17 1625 Signed Impressions: Service Date/Time: Monday, April 10, 2017 17:15 - CONCLUSION: Mild fluid and gaseous distention of small bowel, mainly the proximal small bowel. No acute focal findings in the abdomen or pelvis on noncontrast evaluation. King Shi MD Chest X-Ray 04/10/17 1503 Signed Impressions: Service Date/Time: Monday, April 10, 2017 15:21 - CONCLUSION: 1. Satisfactory position of endotracheal tube as above. Tj Chow MD Chest CT 04/10/17 0000 Signed Impressions: Service Date/Time: Monday, April 10, 2017 17:15 - CONCLUSION: 1. ETT just above the kimberlyn. 2. Dense right lower lobe airspace consolidation with diffuse patchy nodular airspace disease throughout the remainder of the right lung and at the extreme left lung base. Findings are most consistent with pneumonia, atypical infection or aspiration. 3. No significant effusion or pneumothorax. Daniel Carvajal MD Assessment and Plan Assessment and Plan sepsis UTI, gram- negative Gross hematuria Acute VDRF ARF ? PNA Enterococcal high grade bacteremia Ileus ? partial small bowel obstruction Critically ill, unstable cont current abx (azithro, vanco, zosyn) fu urine, blood clx - chk sputum clx - fu clinically for the signs of SBO - chk sputum clx Vicki Ying MD Apr 11, 2017 16:00
[2017-04-11] MEDS: PANTOPRAZOLE SODIUM 40 MG VIAL IV PUSH SCH (16:09)
[2017-04-11] MEDS: POLYETHYLENE GLYCOL 17 GM PKG PO SCH (16:13)
[2017-04-11] MEDS: CALCIUM/VITAMIN D 250 MG/125 U TAB PO SCH ×2 (16:13→20:51)
[2017-04-11] MEDS: LANTHANUM CARBONATE 500 MG CHEWABLE TABLET CHEW SCH (18:06)
[2017-04-11] MEDS: AZITHROMYCIN INJ 500 MG in SODIUM CHLOR 0.9% 250 ML INJ 250 ML IV SCH (18:06)
[2017-04-11] MEDS: PROPOFOL 1000 MG/100 ML IV PRN (18:07)
[2017-04-11] MEDS: METOCLOPRAMIDE HCL 10 MG/2 ML VIAL IV PUSH SCH (20:52)
[2017-04-12] VITALS (18 sets, daily range): BP systolic 109–150; BP diastolic 39–86; PULSE 62–77; RESP 7–17; TEMP 97–98.7; O2SAT 100
[2017-04-12] MEDS: PIPERACIL-TAZO 2.25 GM PREMIX 50 ML IV SCH ×4 (00:15→17:22)
[2017-04-12] MEDS: PROPOFOL 1000 MG/100 ML IV PRN ×3 (02:24→17:20)
[2017-04-12] MEDS: NOREPINEPHRINE 4 MG/D5W 250 ML IV PRN ×3 (02:25→12:16)
[2017-04-12] MEDS: INSULIN NovoLIN REGULAR SUPPLEMENTAL SCALE SQ SCH ×6 (04:00→20:00)
[2017-04-12] MEDS: CHLORHEXIDINE GLUCONATE 2 % 1 PACK (2 CLOTHS) TOP SCH (04:00)
[2017-04-12] MEDS: RESP: ALBUTEROL 2.5 MG/IPRATROPIUM 0.5 MG NEB (SCH) INH ×4 (04:01→20:32)
[2017-04-12 05:00] LABS: AUTOMATED NEUTROPHIL # 18.1 TH/MM3 (1.8-7.7); BASOPHIL # 0.1 TH/MM3 (0-0.2); BASOPHIL % 0.4 % (0.0-2.0); EOSINOPHIL # 0.2 TH/MM3 (0-0.4); EOSINOPHIL % 0.9 % (0.0-4.0); HEMATOCRIT 28.5 % (35.0-46.0); LYMPH % 19.7 % (9.0-44.0); LYMPHOCYTE # 4.8 TH/MM3 (1.0-4.8); MEAN CELL VOLUME 85.1 FL (80.0-100.0); MEAN CORPUSCULAR HEMOGLOBIN 28.2 PG (27.0-34.0); MEAN CORPUSCULAR HGB CONC 33.2 % (32.0-36.0); MONO % 3.8 % (0.0-8.0); NEUT % 75.2 % (16.0-70.0); PLATELET COUNT 515 TH/MM3 (150-450); RED BLOOD COUNT 3.35 MIL/MM3 (4.00-5.30); RED CELL DISTRIBUTION WIDTH 18.8 % (11.6-17.2); WHITE BLOOD COUNT 24.1 TH/MM3 (4.0-11.0)
[2017-04-12 05:06] LABS: HEMO FLAGS AUTO DIFF
[2017-04-12] MEDS: METOCLOPRAMIDE HCL 10 MG/2 ML VIAL IV PUSH SCH ×3 (05:21→22:16)
--- NOTE | 2017-04-12 05:21 | RADRPT ---
EXAM DATE/TIME: 04/12/2017 04:23 [facility] COMPARISON: ABDOMEN KUB ONLY, April 11, 2017, 11:42. INDICATIONS : Evaluae for ileus MEDICAL HISTORY : Hypertension. Diabetes mellitus type 2. Intestinal hernia. SURGICAL HISTORY : Appendectomy. Cholecystectomy. ENCOUNTER: Subsequent ACUITY: 3 days PAIN SCORE: Non-responsive. LOCATION: Bilateral Abdomen FINDINGS: 3 supine images of the abdomen show no significant change. Dilated loops of small bowel are again see n within the right abdomen. The maximum diameter is 5 cm. There is a relative paucity of large bowel gas. Gas is seen involving the rectal wall. A degenerative lumbar spine. No organomegaly. No abnormal calcifications. Decompressed stomach which contains a nasogastric tube. CONCLUSION: Unchanged dilatation of the small bowel. Anthony Duncan Jr., MD on April 12, 2017 at 5:19 Board Certified Radiologist. This report was verified electronically.
[2017-04-12] MEDS: SODIUM CHLOR 0.9% 1000 ML INJ 1,000 ML IV SCH ×2 (05:22→15:33)
--- NOTE | 2017-04-12 05:26 | RADRPT ---
EXAM DATE/TIME: 04/12/2017 04:20 [facility] COMPARISON: CHEST SINGLE AP, April 10, 2017, 22:41. INDICATIONS : Respiratory failure MEDICAL HISTORY : Hypertension. Diabetes mellitus type 2. Intestinal hernia. SURGICAL HISTORY : Appendectomy. Cholecystectomy. ENCOUNTER: Subsequent ACUITY: 3 days PAIN SCORE: Non-responsive. LOCATION: Bilateral chest FINDINGS: A single portable frontal view of the chest shows a small right effusion with bibasilar infiltrates. These are stable. Heart is normal size. Right subclavian central line. Nasogastric tube courses off t he inferior margin of the film. Tip of the endotracheal tube 3 cm from the kimberlyn. CONCLUSION: Unchanged right effusion and bibasilar infiltrates. Anthony Duncan Jr., MD on April 12, 2017 at 5:24 Board Certified Radiologist. This report was verified electronically.
[2017-04-12 05:34] LABS: POTASSIUM 3.2 MEQ/L (3.5-5.1)
[2017-04-12 06:11] LABS: CALCIUM-PROTEIN CORRECTED 6.9 MG/DL (8.5-10.1)
[2017-04-12 07:36] LABS: BANDS 15 % (0-6); BLASTS 1 % (0-0); EOSINOPHILS 2 % (0-4); NEUTROPHIL # MANUAL DIFF 19.5 TH/MM3 (1.8-7.7); PLATELET ESTIMATE SMEAR HIGH (NORMAL); PLATELET MORPHOLOGY ENLARGED (NORMAL); POLYS (SEG NEUTROPHILS) 66 % (16-70); TOXIC GRANULATION 2+ (NORMAL); WBC DIFF SAMPLE 100
[2017-04-12 07:37] LABS: SCAN/DIFF FINAL DIFF MANUAL
--- NOTE | 2017-04-12 08:31 | HHI.PR ---
Subjective Patient symptoms today Pt seen and examined. Santoyo catheter irrigated at bedside with clots removed. Urine dark red. Objective Vital Signs Vital Signs Date Time Temp Pulse Resp B/P (MAP) Pulse Ox O2 Delivery O2 Flow Rate FiO2 04/12/17 08:06 100 40 04/12/17 07:44 68 117/48 04/12/17 07:39 70 131/42 04/12/17 06:00 70 04/12/17 04:00 100 40 04/12/17 04:00 97.5 75 17 146/73 (97) 100 143/59 (87) 04/12/17 04:00 40 04/12/17 04:00 75 04/12/17 02:25 75 136/52 04/12/17 02:00 75 04/12/17 00:52 100 40 04/12/17 00:00 40 04/12/17 00:00 77 04/12/17 00:00 97.6 77 15 144/66 (92) 100 130/56 (80) 04/11/17 22:41 100 40 04/11/17 22:00 81 04/11/17 21:38 79 120/45 04/11/17 20:20 100 40 04/11/17 20:00 40 04/11/17 20:00 97.5 78 16 130/63 (85) 100 118/53 (74) 04/11/17 20:00 78 04/11/17 18:10 81 110/48 04/11/17 18:00 80 04/11/17 16:22 69 108/41 04/11/17 16:21 72 106/39 04/11/17 16:03 100 40 04/11/17 16:00 40 04/11/17 16:00 97.9 77 16 147/68 (94) 100 122/53 (76) 04/11/17 16:00 87 04/11/17 14:00 80 04/11/17 12:45 76 16 120/44 (69) 99 04/11/17 12:30 76 16 119/44 (69) 99 04/11/17 12:27 99 40 04/11/17 12:15 76 17 122/46 (71) 99 04/11/17 12:00 97.1 77 8 122/60 (80) 99 105/39 (61) 04/11/17 12:00 86 04/11/17 12:00 40 04/11/17 11:56 77 101/36 04/11/17 11:45 81 20 105/36 (59) 97 04/11/17 11:30 75 15 108/39 (62) 99 04/11/17 11:15 81 18 109/41 (63) 99 04/11/17 11:00 77 15 106/54 (71) 99 94/40 (58) 04/11/17 10:45 86 21 111/42 (65) 98 04/11/17 10:30 83 18 107/40 (62) 98 04/11/17 10:15 97 31 131/51 (77) 95 04/11/17 10:00 86 04/11/17 10:00 81 17 143/64 (90) 100 130/51 (77) 04/11/17 09:45 82 17 127/50 (75) 100 04/11/17 09:30 79 18 127/60 (82) 100 126/52 (76) 04/11/17 09:15 80 17 96/39 (58) 100 04/11/17 09:00 83 15 133/62 (85) 100 125/52 (76) 04/11/17 08:45 83 17 127/49 (75) 100 04/11/17 08:30 81 16 143/67 (92) 100 131/53 (79) Intake & Output 04/12/17 04/12/17 07:00 19:00 Intake Total 2700 ml 745 ml Output Total 4450 ml 550 ml Balance -1750 ml 195 ml Intake IV Total 2700 ml 745 ml Output Urine Total 4450 ml 550 ml # Bowel Movements 0 Result Diagram: 04/12/17 0440 04/12/17 0440 Imaging Last 24 hours Impressions Abdomen X-Ray 04/12/17 0600 Signed Impressions: Service Date/Time: Wednesday, April 12, 2017 04:23 - CONCLUSION: Unchanged dilatation of the small bowel. Anthony Duncan Jr., MD Chest X-Ray 04/12/17 0000 Signed Impressions: Service Date/Time: Wednesday, April 12, 2017 04:20 - CONCLUSION: Unchanged right effusion and bibasilar infiltrates. Anthony Duncan Jr., MD Objective Remarks Abd:soft,nt,nd Santoyo catheter irrigated and clots removed. Medications and IVs Current Medications Medications (Trade) Dose Ordered Sig/Meme Route Start Time Stop Time Status Last Admin (Duoneb Neb) 1 ampule Q6HR NEB INH 04/10/17 17:00 04/12/17 08:05 Miscellaneous Information 1 Q361D XX 04/10/17 17:00 04/10/17 17:00 (Chlorhexidine 2% Cloth) 3 pack Taper DAILY@04 TOP 04/11/17 04:00 04/07/18 03:59 04/12/17 04:00 (Chlorhexidine 2% Cloth) 3 pack UNSCH PRN TOP 04/10/17 17:00 (Leda-Colace) 1 tab BID PO 04/10/17 21:00 04/11/17 20:51 (Milk Of Magnesia Liq) 30 ml Q12H PRN PO 04/10/17 17:00 (Senokot) 17.2 mg Q12H PRN PO 04/10/17 17:00 (Dulcolax Supp) 10 mg DAILY PRN RECTAL 04/10/17 17:00 (Lactulose Liq) 30 ml DAILY PRN PO 04/10/17 17:00 Pharmacy Profile Note 0 ml @ 0 mls/hr UNSCH OTHER 04/10/17 17:00 Fentanyl Citrate 250 ml @ 5 mls/hr TITRATE PRN IV 04/10/17 17:15 04/11/17 16:00 Piperacillin Sod/ Tazobactam Sod 50 ml @ 100 mls/hr Q6H IV 04/10/17 18:00 04/12/17 05:21 Azithromycin 500 mg/Sodium Chloride 250 ml @ 250 mls/hr Q24H IV 04/10/17 18:00 04/11/17 18:06 Vancomycin HCl 1000 mg/Sodium Chloride 250 ml @ 250 mls/hr Q48H IV 04/12/17 16:00 Norepinephrine Bitartrate 250 ml @ 7.5 mls/hr TITRATE PRN IV 04/10/17 20:30 04/12/17 07:44 Vasopressin 40 units/Dextrose 100 ml @ 6 mls/hr [id number] IV 04/10/17 23:04 04/11/17 18:10 Midazolam HCl 100 ml @ 2 mls/hr TITRATE PRN IV 04/10/17 23:15 Propofol 100 ml @ 2.55 mls/hr TITRATE PRN IV 04/10/17 23:30 04/12/17 02:24 Sodium Chloride 1,000 ml @ 100 mls/hr Q10H IV 04/11/17 10:45 04/12/17 05:22 (D50w (Vial) Inj) 50 ml UNSCH PRN IV PUSH 04/11/17 10:45 (Glucagon Inj) 1 mg UNSCH PRN OTHER 04/11/17 10:45 (NovoLIN R SUPPLEMENTAL SCALE) 1 Q4H SQ 04/11/17 12:00 04/12/17 00:00 (Levemir Inj) 7 units Q12HR SQ 04/11/17 11:40 04/11/17 20:51 (Senna Liq) 8.8 mg DAILY PO 04/11/17 12:30 (Oscal-D 250-125) 250 mg Q12HR PO 04/11/17 14:30 04/11/17 20:51 (Fosrenol Chew) 500 mg TID CHEW 04/11/17 18:00 04/11/17 18:06 (Miralax) 17 gm DAILY PO 04/11/17 15:15 04/11/17 16:13 (Reglan Inj) 5 mg Q8HR IV PUSH 04/11/17 22:00 04/12/17 05:21 (Protonix Inj) 40 mg Q24H IV PUSH 04/11/17 16:00 04/11/17 16:09 Aminocaproic Acid 3000 mg/Sodium Chloride 3,012 ml @ 0 mls/hr UNSCH IRRIGATION 04/12/17 08:30 UNV Assessment and Plan Assessment and Plan 72 y.o female with respiratory failure and gross hematuria with ARF Will start Amicar CBI to help stop hematuria Will need to irrigate santoyo Q 4 hours to remove clots Ucx with GNR's. Continue Abx. Arash Cruz DO Apr 12, 2017 08:31
[2017-04-12] MEDS: DOCUSATE SODIUM 50 MG/SENNA 8.6 MG TAB PO SCH ×2 (08:51→21:00)
[2017-04-12] MEDS: CALCIUM/VITAMIN D 250 MG/125 U TAB PO SCH ×2 (08:51→21:00)
[2017-04-12] MEDS: INSULIN DETEMIR 100 UNITS/ML VIAL SQ SCH ×2 (08:52→21:00)
[2017-04-12] MEDS: fentaNYL DRIP 250 ML IV PRN (08:52)
[2017-04-12] MEDS: LANTHANUM CARBONATE 500 MG CHEWABLE TABLET CHEW SCH ×3 (08:52→17:18)
[2017-04-12] MEDS: SENNOSIDES SYRUP 8.8 MG/5 ML CUP PO SCH (08:52)
[2017-04-12] MEDS: POLYETHYLENE GLYCOL 17 GM PKG PO SCH (08:52)
[2017-04-12] MEDS: AMINOCAPROIC ACID INJ 3,000 MG in SODIUM CHLORIDE 0.9% IRR BAG 3,000 ML IRRIGATION SCH ×7 (09:43→23:44)
[2017-04-12] MEDS: VASOPRESSIN INJ 40 UNITS in DEXTROSE 5% IN WATER 100ML INJ 98 ML IV SCH ×2 (13:31)
[2017-04-12] MEDS ORDERED: VANCOMYCIN 1,000 MG/NS 250 ML IV ONE ×2 (15:00)
[2017-04-12] MEDS ORDERED: VANCOMYCIN 1,500 MG/NS 500 ML IV ONE ×2 (15:00)
[2017-04-12] MEDS ORDERED: DIATRIZOATE MEGLUM/DIATRIZOATE SOD 120 ML BTL (for RAD DIAG) OG-TUBE ONE ×2 (15:18→22:37)
[2017-04-12] MEDS: PANTOPRAZOLE SODIUM 40 MG VIAL IV PUSH SCH (15:33)
[2017-04-12] MEDS ORDERED: VANCOMYCIN 1,000 MG/NS 250 ML IV SCH ×2 (16:00)
--- NOTE | 2017-04-12 16:01 | HHI.NPPN ---
Subjective History of Present Illness 72-year-old female known to me from her last admission when she was admitted in October of this year with past medical history of hypertension, diabetes mellitus, chronic kidney disease, history of cerebrovascular accident, hyperlipidemia, sleep apnea, atrial fibrillation, was admitted with altered mental status. I was called to see the patient because of elevated BUN and creatinine. I saw her when she was here in October and at that time her creatinine was as high as 2.8 and then it improved to around 1.4-1.6, which is probably her baseline. Additional Remarks Patient remain on the vent, sedated, on the pressors. Review of Systems General General Remarks Intubated and sedated. Objective Data Data 04/12/17 04/13/17 18:59 06:59 Intake Total 745 ml Output Total 1500 ml Balance -755 ml Intake IV Total 745 ml Output Urine Total 1500 ml Vital Signs Date Time Temp Pulse Resp B/P (MAP) Pulse Ox O2 Delivery O2 Flow Rate FiO2 04/12/17 15:45 100 40 04/12/17 14:00 63 04/12/17 13:31 63 126/43 04/12/17 12:21 61 119/39 04/12/17 12:16 63 120/40 04/12/17 12:00 40 04/12/17 12:00 62 127/86 (100) 118/39 (65) 04/12/17 12:00 97.0 62 15 127/86 (100) 100 118/39 (65) 04/12/17 12:00 62 04/12/17 11:13 63 127/44 04/12/17 10:50 100 40 04/12/17 10:00 66 04/12/17 09:10 69 138/45 04/12/17 08:06 100 40 04/12/17 08:00 69 150/56 (87) 132/43 (72) 04/12/17 08:00 98.7 69 14 150/56 (87) 100 132/43 (72) 04/12/17 08:00 40 04/12/17 08:00 69 04/12/17 07:44 68 117/48 04/12/17 07:39 70 131/42 04/12/17 06:00 70 04/12/17 04:00 100 40 04/12/17 04:00 97.5 75 17 146/73 (97) 100 143/59 (87) 04/12/17 04:00 40 04/12/17 04:00 75 04/12/17 02:25 75 136/52 04/12/17 02:00 75 04/12/17 00:52 100 40 04/12/17 00:00 40 04/12/17 00:00 77 04/12/17 00:00 97.6 77 15 144/66 (92) 100 130/56 (80) 04/11/17 22:41 100 40 04/11/17 22:00 81 04/11/17 21:38 79 120/45 04/11/17 20:20 100 40 04/11/17 20:00 40 04/11/17 20:00 97.5 78 16 130/63 (85) 100 118/53 (74) 04/11/17 20:00 78 04/11/17 18:10 81 110/48 04/11/17 18:00 80 04/11/17 16:22 69 108/41 04/11/17 16:21 72 106/39 04/11/17 16:03 100 40 04/11/17 16:00 40 04/11/17 16:00 97.9 77 16 147/68 (94) 100 122/53 (76) 04/11/17 16:00 87 -: 04/12/17 0440 04/12/17 0440 Microbiology 04/11/17 Gram Stain - Final, Resulted 04/11/17 Sputum Culture - Preliminary, Resulted Gram Negative Andrés Physical Exam General Appearance Remarks Intubated and sedated. Eyes Eye Exam: Pupils Equal Throat Throat Exam: Oral Mucosa [place] & Moist Neck Neck Exam: Neck Supple Pulmonary Resp Exam: Rhonchi, Decreased Bases, Diminished Breath Sounds, Poor Inspiratory Effort Cardiology CV Exam: Regular, Normal Sinus Rhythm Gastrointestinal/Abdomen GI Exam: Soft, Non-Tender, Bowel Sounds Present, Distended Extremeties Extremities Exam: Moderate Edema, Pitting Edema Neurologic Neuro Exam: Sedated Assessment/Plan Assessment Summary: HIRAM/Acute Renal Failure, Hypotension, CKD Stage III Problem List: (1) Dyspnea ICD Codes: R06.00 - Dyspnea, unspecified Status: Acute (2) Diabetes mellitus ICD Codes: E11.9 - Type 2 diabetes mellitus without complications Status: Chronic (3) Leukocytosis ICD Codes: D72.829 - Elevated white blood cell count, unspecified Status: Resolved (4) Encephalopathy ICD Codes: G93.40 - Encephalopathy, unspecified Status: Acute (5) Pneumonia ICD Codes: J18.9 - Pneumonia, unspecified organism Status: Acute (6) Acute respiratory failure ICD Codes: J96.00 - Acute respiratory failure, unspecified whether with hypoxia or hypercapnia Status: Acute (7) Anemia ICD Codes: D64.9 - Anemia, unspecified Status: Acute (8) Sepsis ICD Codes: A41.9 - Sepsis, unspecified organism Status: Resolved (9) UTI (urinary tract infection) ICD Codes: N39.0 - Urinary tract infection, site not specified Status: Resolved (10) Acute renal failure ICD Codes: N17.9 - Acute kidney failure, unspecified Status: Acute (11) Acute worsening of stage 3 chronic kidney disease ICD Codes: N18.3 - Chronic kidney disease, stage 3 (moderate) Status: Acute Plan Patient has chronic kidney disease. The baseline Creatinine is 1.7-1.8. Now develop HIRAM, possibly related to Hypotension and ATN. Has sepsis and UTI, BP is low, on pressors. Has hematuria, and on CBI. Creatinine is better. Continue antibiotics.Avoid Nephrotoxins. Follow the Vanco. level. Continue IVF. Problem Qualifiers (1) Pneumonia: Qualified Codes: J18.9 - Pneumonia, unspecified organism (2) Acute respiratory failure: Qualified Codes: J96.00 - Acute respiratory failure, unspecified whether with hypoxia or hypercapnia (3) Anemia: Qualified Codes: D64.9 - Anemia, unspecified (4) Sepsis: Qualified Codes: A41.9 - Sepsis, unspecified organism (5) UTI (urinary tract infection): Qualified Codes: N39.0 - Urinary tract infection, site not specified (6) Acute renal failure: Qualified Codes: N17.9 - Acute kidney failure, unspecified Bree Dill MD Apr 12, 2017 16:01
--- NOTE | 2017-04-12 17:10 | HHI.GIFU ---
Subjective Remarks Resting in bed, sedated on vent. NGT clamped for SBFT (in process). No vomiting. No bm today. (Esther Wells) Objective Vitals I&O Vital Signs Date Time Temp Pulse Resp B/P (MAP) Pulse Ox O2 Delivery O2 Flow Rate FiO2 04/12/17 16:00 63 110/56 (74) 109/51 (70) 04/12/17 16:00 64 04/12/17 16:00 97.7 63 15 110/56 (74) 100 109/51 (70) 04/12/17 16:00 40 04/12/17 15:45 100 40 04/12/17 14:00 63 04/12/17 13:31 63 126/43 04/12/17 12:21 61 119/39 04/12/17 12:16 63 120/40 04/12/17 12:00 40 04/12/17 12:00 62 127/86 (100) 118/39 (65) 04/12/17 12:00 97.0 62 15 127/86 (100) 100 118/39 (65) 04/12/17 12:00 62 04/12/17 11:13 63 127/44 04/12/17 10:50 100 40 04/12/17 10:00 66 04/12/17 09:10 69 138/45 04/12/17 08:06 100 40 04/12/17 08:00 69 150/56 (87) 132/43 (72) 04/12/17 08:00 98.7 69 14 150/56 (87) 100 132/43 (72) 04/12/17 08:00 40 04/12/17 08:00 69 04/12/17 07:44 68 117/48 04/12/17 07:39 70 131/42 04/12/17 06:00 70 04/12/17 04:00 100 40 04/12/17 04:00 97.5 75 17 146/73 (97) 100 143/59 (87) 04/12/17 04:00 40 04/12/17 04:00 75 04/12/17 02:25 75 136/52 04/12/17 02:00 75 04/12/17 00:52 100 40 04/12/17 00:00 40 04/12/17 00:00 77 04/12/17 00:00 97.6 77 15 144/66 (92) 100 130/56 (80) 04/11/17 22:41 100 40 04/11/17 22:00 81 04/11/17 21:38 79 120/45 04/11/17 20:20 100 40 04/11/17 20:00 40 04/11/17 20:00 97.5 78 16 130/63 (85) 100 118/53 (74) 04/11/17 20:00 78 04/11/17 18:10 81 110/48 04/11/17 18:00 80 I/O 04/11/17 04/11/17 04/11/17 04/12/17 04/12/17 04/12/17 07:00 15:00 23:00 07:00 15:00 23:00 Intake Total 840 ml 1269 ml 1679 ml 1450 ml 745 ml Output Total 200 ml 1700 ml 4450 ml 1500 ml Balance 640 ml 1269 ml -21 ml -3000 ml -755 ml Intake IV Total 1269 ml 1679 ml 1450 ml 745 ml Packed Cells 800 ml Blood Product IV Normal Saline Flush 40 ml Output Urine Total 50 ml 1100 ml 4450 ml 1500 ml Gastric Drainage Total 150 ml 600 ml # Bowel Movements 0 0 Laboratory Laboratory Tests Test 04/12/17 04:40 White Blood Count 24.1 Red Blood Count 3.35 Hemoglobin 9.5 Hematocrit 28.5 Mean Corpuscular Volume 85.1 Mean Corpuscular Hemoglobin 28.2 Mean Corpuscular Hemoglobin Concent 33.2 Red Cell Distribution Width 18.8 Platelet Count 515 Mean Platelet Volume 8.4 Neutrophils (%) (Auto) 75.2 Lymphocytes (%) (Auto) 19.7 Monocytes (%) (Auto) 3.8 Eosinophils (%) (Auto) 0.9 Basophils (%) (Auto) 0.4 Neutrophils # (Auto) 18.1 Lymphocytes # (Auto) 4.8 Monocytes # (Auto) 0.9 Eosinophils # (Auto) 0.2 Basophils # (Auto) 0.1 CBC Comment AUTO DIFF Differential Total Cells Counted 100 Neutrophils % (Manual) 66 Band Neutrophils % 15 Lymphocytes % 15 Monocytes % 1 Eosinophils % 2 Neutrophils # (Manual) 19.5 Differential Comment FINAL DIFF MANUAL Blastocytes 1 Toxic Granulation 2+ Platelet Estimate HIGH Platelet Morphology Comment ENLARGED Blood Urea Nitrogen 80 Creatinine 2.65 Random Glucose 117 Total Protein 6.0 Calcium Level 6.4 Sodium Level 130 Potassium Level 3.2 Chloride Level 92 Carbon Dioxide Level 26.0 Anion Gap 12 Estimat Glomerular Filtration Rate 18 Protein Corrected Calcium 6.9 Random Vancomycin Level 6.9 Date/Time Source Procedure Growth Status 04/11/17 11:18 Blood Peripheral Aerobic Blood Culture - Preliminary NO GROWTH IN 1 DAY Resulted 04/11/17 11:18 Blood Peripheral Anaerobic Blood Culture - Preliminary NO GROWTH IN 1 DAY Resulted 04/11/17 20:00 Sputum Endotracheal Gram Stain - Final Resulted 04/11/17 20:00 Sputum Culture - Preliminary Gram Negative Andrés Resulted 04/10/17 15:55 Urine Catheterized Urine Legionella Antigen - Final PRESUMPTIVE NEGATIVE FOR LEGIONELLA P... Complete 04/10/17 15:55 Urine Catheterized Urine Streptococcus pneumoniae Antigen (M - Final PRESUMPTIVE NEGATIVE FOR STREPTOCOCCU... Complete Imaging Last Impressions Abdomen X-Ray 04/12/17 0600 Signed Impressions: Service Date/Time: Wednesday, April 12, 2017 04:23 - CONCLUSION: Unchanged dilatation of the small bowel. Anthony Duncan Jr., MD Chest X-Ray 04/12/17 0000 Signed Impressions: Service Date/Time: Wednesday, April 12, 2017 04:20 - CONCLUSION: Unchanged right effusion and bibasilar infiltrates. Anthony Duncan Jr., MD Head CT 04/10/17 1648 Signed Impressions: Service Date/Time: Monday, April 10, 2017 17:11 - CONCLUSION: 1. No acute intracranial abnormality or significant interval change. Daniel Carvajal MD Abdomen/Pelvis CT 04/10/17 1625 Signed Impressions: Service Date/Time: Monday, April 10, 2017 17:15 - CONCLUSION: Mild fluid and gaseous distention of small bowel, mainly the proximal small bowel. No acute focal findings in the abdomen or pelvis on noncontrast evaluation. King Shi MD Chest CT 04/10/17 0000 Signed Impressions: Service Date/Time: Monday, April 10, 2017 17:15 - CONCLUSION: 1. ETT just above the [place]. 2. Dense right lower lobe airspace consolidation with diffuse patchy nodular airspace disease throughout the remainder of the right lung and at the extreme left lung base. Findings are most consistent with pneumonia, atypical infection or aspiration. 3. No significant effusion or pneumothorax. Daniel Carvajal MD Physical Exam HEENT: Normocephalic; atraumatic; no jaundice CHEST: Resp even/unlabored. OETT to vent. Diminished bsaes. CARDIAC: RRR ABDOMEN: Soft, mildly distended, bowel sounds present, OGT clamped for sbft EXTREMITIES: BLE edema. : 3 way catheter SKIN: Skin cool [employer]ICIAN: Sedated on vent. (Esther Wells) Assessment and Plan Plan ASSESSMENT: - Ileus, mild. Pt came to the ER with nausea/vomiting, respiratory distress, AMS. CT scan abdomen and pelvis (04/10/17)----> Mild fluid and gaseous distention of small bowel, mainly the proximal small bowel. No acute focal findings in the abdomen or pelvis on noncontrast evaluation. KUB (04/12/17)----> Unchanged dilatation of the small bowel. OGT clamped for SBFT- in process. Reglan. Miralax. Senna. No BM. Stool studies ordered, but she has not had a bowel movement. - Acute respiratory failure, PNA, COPD, LAXMI. Vent per [facility] Zosyn, Azithromycin. - Sepsis with leukocytosis, UTI, PNA. Rpt. BCx pending no growth one day, urine neg for legionella/streptococcus, ur cx GNR, BCx GPC. Sputum GNR. WBC 24.1. Zosyn, Azithromycin. - Hematuria. following, ? traumatic santoyo placement. Plan is to start CBI. Plan for cystoscopy if hematuria continues. - Anemia. S/P EGD (02/26/17)---> the esophagus was otherwise normal, multiple small ulcers were found in the prepyloric region of the stomach and at the pylorus; biopsies were taken. Food residue in the gastric fundus, cardia, and gastric body, normal duodenal mucosa in the bulb and second portion of the duodenum, retroflexion was performed and was normal. Pathology revealed moderate chronic active gastritis with features of ulceration and associated reactive epithelial changes negative for H. pylori. S/P 2 units prbc. 9.5/28.5. - CVA, Paroxysmal atrial fibrillation. - HIRAM with electrolyte abnormalities, Creat 2.65. - DM, Hyperlipidemia per attending PLAN: - NPO - OGT clamped for SBFT - Await results of SBFT - Cont. Protonix 40mg iv daily - Cont. Reglan 5mg IV q8h - Cont. Miralax 17gram per OGT daily - Stool studies- has not had a bowel movement. - Supportive care - Further recommendations to follow based on results of above - Pt seen and examined by Dr. Bronson and myself and this note is written on his behalf (Esther Wells) Esther Wells Apr 12, 2017 17:10 Helen Bronson MD Apr 12, 2017 19:36
[2017-04-12] MEDS: AZITHROMYCIN INJ 500 MG in SODIUM CHLOR 0.9% 250 ML INJ 250 ML IV SCH (17:19)
--- NOTE | 2017-04-12 17:52 | HHI.CCPN ---
Subjective Remarks/Hospital Course The patient is a 72-year-old female with multiple medical comorbidities which include hypertension, diabetes mellitus, hyperlipidemia, obstructive sleep apnea on C-PAP machine at home, COPD, CVA with residual left-sided hemiparesis who presented to [facility] ED with altered mental status and emesis. She was last seen normal yesterday. The patient was on non-rebreather mask initially, however, she was intubated with etomidate, succinylcholine and placed on mechanical ventilation. Also she was placed on Versed drip for sedation. ABG post intubation showed acute hypercapnic respiratory failure with a pH of 7.36, CO2 51, pAO2 322, bicarb 28 and saturation 97%. Her laboratory data significant for acute renal failure with a BUN of 91, creatinine 3.65. Lactic acid was 1.9. Also she was found to have leukocytosis with a WBC of 17.1 associated with bandemia of 26. Her urinalysis was positive for leukocyte esterase, moderate blood and many bacteria. Chest x-ray post intubation showed ET tube above the [place], questionable elevation of right hemidiaphragm with subsegmental atelectasis. In the ER she is currently receiving a second liter of IV fluids and received cefepime and vancomycin. A Cuellar was placed in the ER and post placement the patient noted to have hematuria. to her altered mental status she was scheduled to undergo CT scan of the brain without contrast. Of note the patient was on Eliquis for a history of paroxysmal atrial fibrillation. Also a CT scan of the thorax, abdomen, pelvis without contrast were ordered by the ED physician. Most of the history was obtained from reviewing medical records as the patient is intubated and no family members present at the bedside 04/11 Patient became hypotensive overnight started on Levophed 15 mics and Vasopressin. Sedated with fentanyl, Diprivan and intubated. Afebrile. BC from yesterday GPC. Subjective 04/12: Early afebrile. Currently on norepinephrine at 6 mcg/m and vasopressin 0.04 units per minute sedated on the ventilator and propofol and fentanyl drips. Currently undergoing small bowel follow-through. Objective Vital Signs Date Time Temp Pulse Resp B/P (MAP) Pulse Ox O2 Delivery O2 Flow Rate FiO2 04/12/17 16:00 63 110/56 (74) 109/51 (70) 04/12/17 16:00 97.7 15 100 04/12/17 16:00 40 04/10/17 16:55 Ventilator 04/10/17 15:12 15.00 Intake and Output 04/12/17 04/12/17 04/13/17 08:00 16:00 00:00 Intake Total 2195 ml Output Total 5000 ml 950 ml Balance -2805 ml -950 ml Result Diagram: 04/12/17 0440 04/12/17 0440 Other Results Microbiology Date/Time Source Procedure Growth Status 04/11/17 11:18 Blood Peripheral Aerobic Blood Culture - Preliminary NO GROWTH IN 1 DAY Resulted 04/11/17 11:18 Blood Peripheral Anaerobic Blood Culture - Preliminary NO GROWTH IN 1 DAY Resulted 04/11/17 20:00 Sputum Endotracheal Gram Stain - Final Resulted 04/11/17 20:00 Sputum Culture - Preliminary Gram Negative Andrés Resulted 04/10/17 15:55 Urine Catheterized Urine Legionella Antigen - Final PRESUMPTIVE NEGATIVE FOR LEGIONELLA P... Complete 04/10/17 15:55 Urine Catheterized Urine Streptococcus pneumoniae Antigen (M - Final PRESUMPTIVE NEGATIVE FOR STREPTOCOCCU... Complete Imaging Last Impressions Abdomen X-Ray 04/12/17 0600 Signed Impressions: Service Date/Time: Wednesday, April 12, 2017 04:23 - CONCLUSION: Unchanged dilatation of the small bowel. Anthony Duncan Jr., MD Chest X-Ray 04/12/17 0000 Signed Impressions: Service Date/Time: Wednesday, April 12, 2017 04:20 - CONCLUSION: Unchanged right effusion and bibasilar infiltrates. Anthony Duncan Jr., MD Head CT 04/10/17 1648 Signed Impressions: Service Date/Time: Monday, April 10, 2017 17:11 - CONCLUSION: 1. No acute intracranial abnormality or significant interval change. Daniel Carvajal MD Abdomen/Pelvis CT 04/10/17 1625 Signed Impressions: Service Date/Time: Monday, April 10, 2017 17:15 - CONCLUSION: Mild fluid and gaseous distention of small bowel, mainly the proximal small bowel. No acute focal findings in the abdomen or pelvis on noncontrast evaluation. King Shi MD Chest CT 04/10/17 0000 Signed Impressions: Service Date/Time: Monday, April 10, 2017 17:15 - CONCLUSION: 1. ETT just above the [place]. 2. Dense right lower lobe airspace consolidation with diffuse patchy nodular airspace disease throughout the remainder of the right lung and at the extreme left lung base. Findings are most consistent with pneumonia, atypical infection or aspiration. 3. No significant effusion or pneumothorax. Daniel Carvajal MD Objective Remarks GENERAL: Patient is 72 yo critically ill orotracheally intubated SKIN: Warm and dry. No rash HEAD: Normocephalic. EYES: No scleral icterus. No injection or drainage. NECK: Supple, trachea midline. No JVD or lymphadenopathy. CARDIOVASCULAR: Regular rate and rhythm currently. S1, S2 no S4. Without murmurs, gallops, or rubs. RESPIRATORY: Breath sounds equal bilaterally. No accessory muscle use. GASTROINTESTINAL: Abdomen soft, non-tender, obese. No bowel sounds are appreciated : Cuellar in place with resolved Hematuria. MUSCULOSKELETAL: +2 edema. Neuro: Sedated, intubated Urinary Catheter: Yes Assessment to: Continue Cuellar insert reason: Prolonged Immobilization Vascular Central Line Catheter: Yes Assessment to: Continue Date of Insertion: Apr 10, 2017 Line: Central Venous Catheter Side: Right Location: Subclavian A/P Assessment and Plan Neuro/Psych: History of CVA with left-sided weakness Patient is currently on propofol at 12 g per minute and fentanyl drip at 125 mics grams an hour for sedation/analgesia while intubated Goal of RA SS -2 Daily sedation vacation when appropriate. 04/10 -CT brain without contrast: No acute abnormalities. Pulm : Acute respiratory failure secondary to pneumonia/gram-negative andrés LAXMI COPD Continue with vent support and maintain sats above 92%. Bronchodilators, ICU vent bundle CT chest: Dense right lower lobe airspace consolidation with diffuse patchy nodular airspace disease throughout the remainder of the right lung and at the extreme left lung base. Findings are most consistent with pneumonia, No significant effusion or pneumothorax. CV: Septic shock History of paroxysmal atrial fibrillation currently normal sinus rhythm Hypertension Dyslipidemia Currently on norepinephrine at 6 mics grams per minute and vasopressin 0.04 units per minute goal keep MAP> 65 mmHg. On normal saline at 100 cc an hour Echo: In February : EF 55-60%. Lactic acid: 1.9 Renal/FEN/: Hematuria Hypocalcemia Hypopotassemia Monitor renal function, I/O's and avoid nephrotoxins Renal and Urology consulted. Creatinine normalizing. On continuous bladder irrigations Change IVF- NS @100ml/hr 30 mEq KCl, 1 g calcium gluconate. Recheck in a.m. GI: Possible small bowel obstruction On Protonix 40 mg IV daily for GI prophylaxis. OGT to LIWS- CT evidence as well as revealed possible small bowel obstruction. For small bowel follow-through today GI consulted ID: Enterococcus faecalis bacteremia Proteus UTI Gram-negative andrés pneumonia Continue with abx ( vanco, piperacillin/tazobactam, Azithromycin) Monitor for signs infections (fever and WBC) Pharmacy to adjust doses of abx per renal function. 04/10 blood cultures Enterococcus faecalis 09/08 bottles. Check BC x 2 sets 04/10. 04/11 blood cultures no growth 04/10 UA positive Proteus 04/11 - sputum - gram-negative andrés Influenza screening, strep pneumonia and Legionella urinary Ag negative. Follow up on urine cx, check sputum cx Wound care is following for sacral wound ulcers. Endo: Diabetes mellitus Increase SSI to medium scale with Accu-Chek q.4h for glycemic control. Continue detemir 7units BID Heme: Leukocytosis Normocytic anemia Thrombocytosis Monitor CBC and coags. GI prophylaxis with pantoprazole 40 mg daily and DVT prophylaxis with SCDs Not on chemical anticoagulation prophylaxis due to hematuria Lines: Right subclavian CVP, Right rad Art line placed 04/10 Patient is critically ill with septic shock, resp failure, ARF, pneumonia, UTI CCT 30 mins Bernardo Sheikh MD Apr 12, 2017 17:52
[2017-04-12] MEDS ORDERED: CALCIUM GLUCONATE INJ 1 GM in SODIUM CHLORIDE 0.9% INJ 100 ML IV ONE (18:00)
[2017-04-12] MEDS ORDERED: POTASSIUM CHLORIDE INJ 30 MEQ in SODIUM CHLORIDE 0.9% INJ 100 ML IV-CENTRAL ONE (20:00)
--- NOTE | 2017-04-12 20:03 | RADRPT ---
EXAM DATE/TIME: 04/12/2017 14:36 [place] COMPARISON: No previous studies available for comparison. INDICATIONS : Small Bowel Obstruction. FLUORO TIME: 0 minutes IMAGE COUNT: 11 CONTRAST: [facility] IMAGING TIME(S): 15 min, 30 min, 1 hr, 3 hr4 hr MEDICAL HISTORY : Cardiovascular disease. Hypertension. Diabetes mellitus type 2. SURGICAL HISTORY : Appendectomy. Cholecystectomy. ENCOUNTER: Subsequent ACUITY: 4 - 6 days PAIN SCORE: Non-responsive. LOCATION: Bilateral Abdomen. FINDINGS: Small bowel series with Gastrografin reveals no gastric outlet obstruction. There is dilatation of sm all bowel loops to mild degree, predominantly proximally. There is no small bowel obstruction. Contra st does reach the distal colon by 4 hours. NG tube in distal stomach. CONCLUSION: 1. Mild small bowel dilatation without obstruction. Contrast reaches distal colon by 4 hours. Abrahan Gómez MD on April 12, 2017 at 20:00 Board Certified Radiologist. This report was verified electronically.
--- NOTE | 2017-04-12 21:30 | HHI.IDPN ---
Subjective Subjective Remarks remains unstable On vent On pressors Not much secretions Antibiotics vanco zosyn azithro Allergies: Coded Allergies: *MDRO Multi-Drug Resistant Organism (Verified Adverse Reaction, Unknown, ) MRSA PCR Screen POSITIVE - 10/24/2016 MRSA (sputum)-10/24/16 Objective . Vital Signs Date Time Temp Pulse Resp B/P (MAP) Pulse Ox O2 Delivery O2 Flow Rate FiO2 04/12/17 20:09 100 40 04/12/17 18:00 63 04/12/17 16:00 63 110/56 (74) 109/51 (70) 04/12/17 16:00 64 04/12/17 16:00 97.7 63 15 110/56 (74) 100 109/51 (70) 04/12/17 16:00 40 04/12/17 15:45 100 40 04/12/17 14:00 63 04/12/17 13:31 63 126/43 04/12/17 12:21 61 119/39 04/12/17 12:16 63 120/40 04/12/17 12:00 40 04/12/17 12:00 62 127/86 (100) 118/39 (65) 04/12/17 12:00 97.0 62 15 127/86 (100) 100 118/39 (65) 04/12/17 12:00 62 04/12/17 11:13 63 127/44 04/12/17 10:50 100 40 04/12/17 10:00 66 04/12/17 09:10 69 138/45 04/12/17 08:06 100 40 04/12/17 08:00 69 150/56 (87) 132/43 (72) 04/12/17 08:00 98.7 69 14 150/56 (87) 100 132/43 (72) 04/12/17 08:00 40 04/12/17 08:00 69 04/12/17 07:44 68 117/48 04/12/17 07:39 70 131/42 04/12/17 06:00 70 04/12/17 04:00 100 40 04/12/17 04:00 97.5 75 17 146/73 (97) 100 143/59 (87) 04/12/17 04:00 40 04/12/17 04:00 75 04/12/17 02:25 75 136/52 04/12/17 02:00 75 04/12/17 00:52 100 40 04/12/17 00:00 40 04/12/17 00:00 77 04/12/17 00:00 97.6 77 15 144/66 (92) 100 130/56 (80) 04/11/17 22:41 100 40 04/11/17 22:00 81 04/11/17 21:38 79 120/45 04/12/17 04/12/17 04/13/17 15:00 23:00 07:00 Intake Total 745 ml 4813 ml Output Total 1500 ml 720 ml Balance -755 ml 4093 ml Intake IV Total 745 ml 4813 ml Output Urine Total 1500 ml 600 ml Gastric Drainage Total 120 ml . Laboratory Tests Test 04/10/17 22:57 04/11/17 04:30 04/12/17 04:40 White Blood Count 19.3 TH/MM3 19.8 TH/MM3 24.1 TH/MM3 Red Blood Count 2.64 MIL/MM3 3.18 MIL/MM3 3.35 MIL/MM3 Hemoglobin 7.0 GM/DL 8.8 GM/DL 9.5 GM/DL Hematocrit 22.4 % 27.1 % 28.5 % Mean Corpuscular Volume 84.8 FL 85.4 FL 85.1 FL Mean Corpuscular Hemoglobin 26.4 PG 27.7 PG 28.2 PG Mean Corpuscular Hemoglobin Concent 31.1 % 32.5 % 33.2 % Red Cell Distribution Width 20.9 % 19.9 % 18.8 % Platelet Count 742 TH/MM3 652 TH/MM3 515 TH/MM3 Mean Platelet Volume 8.9 FL 8.7 FL 8.4 FL Neutrophils (%) (Auto) 76.1 % 75.2 % Lymphocytes (%) (Auto) 17.7 % 19.7 % Monocytes (%) (Auto) 5.2 % 3.8 % Eosinophils (%) (Auto) 0.9 % 0.9 % Basophils (%) (Auto) 0.1 % 0.4 % Neutrophils # (Auto) 15.1 TH/MM3 18.1 TH/MM3 Lymphocytes # (Auto) 3.5 TH/MM3 4.8 TH/MM3 Monocytes # (Auto) 1.0 TH/MM3 0.9 TH/MM3 Eosinophils # (Auto) 0.2 TH/MM3 0.2 TH/MM3 Basophils # (Auto) 0.0 TH/MM3 0.1 TH/MM3 CBC Comment AUTO DIFF AUTO DIFF Differential Total Cells Counted 100 100 Neutrophils % (Manual) 59 % 66 % Band Neutrophils % 12 % 15 % Lymphocytes % 24 % 15 % Monocytes % 3 % 1 % Neutrophils # (Manual) 14.5 TH/MM3 19.5 TH/MM3 Metamyelocytes 1 % Myelocytes 1 % Differential Comment FINAL DIFF MANUAL FINAL DIFF MANUAL Toxic Granulation 2+ 2+ Dohle Bodies PRESENT Platelet Estimate HIGH HIGH Platelet Morphology Comment NORMAL ENLARGED Eosinophils % 2 % Blastocytes 1 % Laboratory Tests Test 04/10/17 22:57 04/11/17 04:30 04/12/17 04:40 Blood Urea Nitrogen 86 MG/DL 86 MG/DL 80 MG/DL Creatinine 3.40 MG/DL 3.31 MG/DL 2.65 MG/DL Random Glucose 216 MG/DL 313 MG/DL 117 MG/DL Total Protein 6.0 GM/DL 6.1 GM/DL 6.0 GM/DL Calcium Level 6.5 MG/DL 6.5 MG/DL 6.4 MG/DL Sodium Level 132 MEQ/L 130 MEQ/L 130 MEQ/L Potassium Level 3.9 MEQ/L 3.7 MEQ/L 3.2 MEQ/L Chloride Level 92 MEQ/L 91 MEQ/L 92 MEQ/L Carbon Dioxide Level 26.1 MEQ/L 24.5 MEQ/L 26.0 MEQ/L Anion Gap 14 MEQ/L 15 MEQ/L 12 MEQ/L Estimat Glomerular Filtration Rate 13 ML/MIN 14 ML/MIN 18 ML/MIN Protein Corrected Calcium 7.0 MG/DL 7.0 MG/DL 6.9 MG/DL Albumin 1.5 GM/DL Alkaline Phosphatase 282 U/L Aspartate Amino Transf (AST/SGOT) 23 U/L Alanine Aminotransferase (ALT/SGPT) 10 U/L Total Bilirubin 0.8 MG/DL Microbiology Date/Time Source Procedure Growth Status 04/11/17 11:18 Blood Peripheral Aerobic Blood Culture - Preliminary NO GROWTH IN 1 DAY Resulted 04/11/17 11:18 Blood Peripheral Anaerobic Blood Culture - Preliminary NO GROWTH IN 1 DAY Resulted 04/11/17 11:10 Blood Peripheral Aerobic Blood Culture - Preliminary NO GROWTH IN 1 DAY Resulted 04/11/17 11:10 Blood Peripheral Anaerobic Blood Culture - Preliminary NO GROWTH IN 1 DAY Resulted 04/10/17 15:15 Blood Peripheral Aerobic Blood Culture - Preliminary Gram Positive Cocci Resulted 04/10/17 15:15 Anaerobic Blood Culture - Preliminary Enterococcus Faecalis Resulted 04/10/17 15:10 Blood Peripheral Aerobic Blood Culture - Preliminary Enterococcus Faecalis Resulted 04/10/17 15:10 Anaerobic Blood Culture - Preliminary Enterococcus Faecalis Resulted 04/11/17 20:00 Sputum Endotracheal Gram Stain - Final Resulted 04/11/17 20:00 Sputum Culture - Preliminary Gram Negative Andrés Resulted 04/10/17 15:55 Nasal Aspirate Influenza Types A,B Antigen (CHRISTIANO) - Final NEGATIVE FOR FLU A AND B ANTIGEN.... Complete 04/10/17 15:55 Urine Catheterized Urine Legionella Antigen - Final PRESUMPTIVE NEGATIVE FOR LEGIONELLA P... Complete 04/10/17 15:55 Urine Catheterized Urine Streptococcus pneumoniae Antigen (M - Final PRESUMPTIVE NEGATIVE FOR STREPTOCOCCU... Complete 04/10/17 15:55 Urine Catheterized Urine Urine Culture - Final Proteus Mirabilis Complete Imaging Last Impressions Abdomen X-Ray 04/12/17 0600 Signed Impressions: Service Date/Time: Wednesday, April 12, 2017 04:23 - CONCLUSION: Unchanged dilatation of the small bowel. Anthony Duncan Jr., MD Small Bowel X-Ray 04/12/17 0000 Signed Impressions: Service Date/Time: Wednesday, April 12, 2017 14:36 - CONCLUSION: 1. Mild small bowel dilatation without obstruction. Contrast reaches distal colon by 4 hours. Abrahan Gómez MD Chest X-Ray 04/12/17 0000 Signed Impressions: Service Date/Time: Wednesday, April 12, 2017 04:20 - CONCLUSION: Unchanged right effusion and bibasilar infiltrates. Anthony Duncan Jr., MD Head CT 04/10/17 1648 Signed Impressions: Service Date/Time: Monday, April 10, 2017 17:11 - CONCLUSION: 1. No acute intracranial abnormality or significant interval change. Daniel Carvajal MD Abdomen/Pelvis CT 04/10/17 1625 Signed Impressions: Service Date/Time: Monday, April 10, 2017 17:15 - CONCLUSION: Mild fluid and gaseous distention of small bowel, mainly the proximal small bowel. No acute focal findings in the abdomen or pelvis on noncontrast evaluation. King Shi MD Chest CT 04/10/17 0000 Signed Impressions: Service Date/Time: Monday, April 10, 2017 17:15 - CONCLUSION: 1. ETT just above the kimberlyn. 2. Dense right lower lobe airspace consolidation with diffuse patchy nodular airspace disease throughout the remainder of the right lung and at the extreme left lung base. Findings are most consistent with pneumonia, atypical infection or aspiration. 3. No significant effusion or pneumothorax. Daniel Carvajal MD Physical Exam CONSTITUTIONAL/GENERAL: This is a morbidly obese patient, in no apparent distress. Int'd on [facility] vent'n TUBES/LINES/DRAINS: SKIN: No jaundice, rashes, or lesions. Skin temperature appropriate. Not diaphoretic. EYES: Pupils equal and round and reactive. Extraocular motions intact. No scleral icterus. No injection or drainage. Fundi not examined. ENT: Hearing OK, opens eyes, follows commands . Orally intubated NECK: Trachea midline. CARDIOVASCULAR: Regular rate and rhythm without murmurs, gallops, or rubs. No JVD. Peripheral pulses symmetric. RESPIRATORY/CHEST: Symmetric, unlabored respirations. Clear to auscultation. Breath sounds equal bilaterally. No wheezes, rales, or rhonchi. GASTROINTESTINAL: Abdomen soft, non-tender, very distended. Tympanic in mid abdomen No hepato-splenomegaly, or palpable masses. No guarding. Bowel sounds present. GENITOURINARY: Without palpable bladder distension. Cuellar catheter in place with pink urine (constant irrigation) MUSCULOSKELETAL: Extremities without clubbing, cyanosis, + worsening edema. LYMPHATICS: No palpable cervical or supraclavicular adenopathy. NEUROLOGICAL: Lethargic, arousable Opens eyes to verbal commands Moves spontaneously all extremeeties PSYCHIATRIC: Unable to assess Assessment & Plan Remarks Assessment and Plan sepsis UTI, gram- negative Gross hematuria Acute VDRF ARF ? PNA - sputum with GNB Enterococcal high grade bacteremia Ileus ? partial small bowel obstruction Critically ill, unstable cont current abx (azithro, vanco, zosyn) fu urine, blood clx - fu sputum clx - fu clinically for the signs of SBO - 2 D echo Vicki Ying MD Apr 12, 2017 21:30
[2017-04-13] VITALS (18 sets, daily range): BP systolic 85–159; BP diastolic 40–79; PULSE 62–98; RESP 4–18; TEMP 96–98.3; O2SAT 99–100
[2017-04-13] MEDS: PROPOFOL 1000 MG/100 ML IV PRN ×4 (00:21→21:35)
[2017-04-13] MEDS: SODIUM CHLOR 0.9% 1000 ML INJ 1,000 ML IV SCH ×3 (02:45→21:38)
[2017-04-13] MEDS: RESP: ALBUTEROL 2.5 MG/IPRATROPIUM 0.5 MG NEB (SCH) INH ×4 (03:14→20:39)
[2017-04-13] MEDS: CHLORHEXIDINE GLUCONATE 2 % 1 PACK (2 CLOTHS) TOP SCH (04:00)
[2017-04-13] MEDS: INSULIN NovoLIN REGULAR SUPPLEMENTAL SCALE SQ SCH ×6 (04:00→20:00)
[2017-04-13 04:30] LABS: AUTOMATED NEUTROPHIL # 23.1 TH/MM3 (1.8-7.7); EOSINOPHIL % 0.2 % (0.0-4.0); HEMATOCRIT 27.4 % (35.0-46.0); LYMPH % 9.4 % (9.0-44.0); LYMPHOCYTE # 2.5 TH/MM3 (1.0-4.8); MEAN CELL VOLUME 84.2 FL (80.0-100.0); MEAN CORPUSCULAR HEMOGLOBIN 28.3 PG (27.0-34.0); MEAN CORPUSCULAR HGB CONC 33.6 % (32.0-36.0); MONO % 2.4 % (0.0-8.0); PLATELET COUNT 455 TH/MM3 (150-450); RED BLOOD COUNT 3.25 MIL/MM3 (4.00-5.30); WHITE BLOOD COUNT 26.2 TH/MM3 (4.0-11.0)
[2017-04-13] MEDS: PIPERACIL-TAZO 2.25 GM PREMIX 50 ML IV SCH ×5 (04:31→21:28)
[2017-04-13] MEDS: METOCLOPRAMIDE HCL 10 MG/2 ML VIAL IV PUSH SCH ×3 (04:31→21:29)
[2017-04-13 04:51] LABS: MAGNESIUM 1.3 MG/DL (1.5-2.5)
[2017-04-13 04:52] LABS: HEMO FLAGS AUTO DIFF
--- NOTE | 2017-04-13 05:15 | RADRPT ---
EXAM DATE/TIME: 04/13/2017 04:03 [facility] COMPARISON: CHEST SINGLE AP, April 12, 2017, 4:20. INDICATIONS : Shortness of breath, possible pulmonary disease. MEDICAL HISTORY : Hypertension. Diabetes mellitus type II. Hernia SURGICAL HISTORY : Appendectomy. Cholecystectomy. ENCOUNTER: Subsequent ACUITY: 4 - 6 days PAIN SCORE: Non-responsive. LOCATION: Bilateral chest FINDINGS: A single portable frontal view of the chest is blurred by breathing motion artifact. Worsening diffus e bilateral pulmonary infiltrates most pronounced on the right. Small effusions bilaterally are stabl e. Heart is normal in size. Tip of the nasogastric tube courses off the inferior margin of the film. Tip of the endotracheal tube 1 cm from the kimberlyn. Right subclavian central line. CONCLUSION: Worsening bilateral pulmonary infiltrates. Anthony Duncan Jr., MD on April 13, 2017 at 5:13 Board Certified Radiologist. This report was verified electronically.
--- NOTE | 2017-04-13 05:16 | RADRPT ---
EXAM DATE/TIME: 04/13/2017 04:10 [facility] COMPARISON: ABDOMEN KUB ONLY, April 12, 2017, 4:23. INDICATIONS : Abdominal distention. MEDICAL HISTORY : Hypertension. Diabetes mellitus type II. Hernia SURGICAL HISTORY : Appendectomy. Cholecystectomy. ENCOUNTER: Subsequent ACUITY: 4 - 6 days PAIN SCORE: Non-responsive. LOCATION: Bilateral Abdomen FINDINGS: 2 supine portable frontal views of the abdomen show oral contrast throughout the colon reaching the l evel of the rectal vault. Dilated loops of gas-filled small bowel are noted and unchanged. Nasogastri c tube with the tip in the region of the antrum. Right hip prosthesis. CONCLUSION: Unchanged dilated small bowel. Oral contrast reaches the rectal vault. Anthony Duncan Jr., MD on April 13, 2017 at 5:14 Board Certified Radiologist. This report was verified electronically.
[2017-04-13 05:20] LABS: CALCIUM-PROTEIN CORRECTED 7.5 MG/DL (8.5-10.1); TOTAL BILIRUBIN ADULT 0.5 MG/DL (0.2-1.0)
[2017-04-13 05:27] LABS: C. DIFF EPI 027 PRESUMPTIVE NEGATIVE (NEGATIVE)
[2017-04-13] MEDS ORDERED: CALCIUM GLUCONATE INJ 1 GM in DEXTROSE 5% IN WATER 100ML INJ 100 ML IV ONE ×2 (06:30)
[2017-04-13] MEDS ORDERED: POTASSIUM CHLOR 40 MEQ PREMIX 100 ML IV ONE (06:30)
[2017-04-13] MEDS: NOREPINEPHRINE 4 MG/D5W 250 ML IV PRN ×2 (07:38→21:30)
[2017-04-13] MEDS: MAGNESIUM SULFATE 1 GM PREMIX 100 ML IV SCH ×3 (07:40→09:05)
--- NOTE | 2017-04-13 08:19 | HHI.CCPN ---
Subjective Remarks/Hospital Course The patient is a 72-year-old female with multiple medical comorbidities which include hypertension, diabetes mellitus, hyperlipidemia, obstructive sleep apnea on C-PAP machine at home, COPD, CVA with residual left-sided hemiparesis who presented to [facility] ED with altered mental status and emesis. She was last seen normal yesterday. The patient was on non-rebreather mask initially, however, she was intubated with etomidate, succinylcholine and placed on mechanical ventilation. Also she was placed on Versed drip for sedation. ABG post intubation showed acute hypercapnic respiratory failure with a pH of 7.36, CO2 51, pAO2 322, bicarb 28 and saturation 97%. Her laboratory data significant for acute renal failure with a BUN of 91, creatinine 3.65. Lactic acid was 1.9. Also she was found to have leukocytosis with a WBC of 17.1 associated with bandemia of 26. Her urinalysis was positive for leukocyte esterase, moderate blood and many bacteria. Chest x-ray post intubation showed ET tube above the kimberlyn, questionable elevation of right hemidiaphragm with subsegmental atelectasis. In the ER she is currently receiving a second liter of IV fluids and received cefepime and vancomycin. A Cuellar was placed in the ER and post placement the patient noted to have hematuria. to her altered mental status she was scheduled to undergo CT scan of the brain without contrast. Of note the patient was on Eliquis for a history of paroxysmal atrial fibrillation. Also a CT scan of the thorax, abdomen, pelvis without contrast were ordered by the ED physician. Most of the history was obtained from reviewing medical records as the patient is intubated and no family members present at the bedside 04/11 Patient became hypotensive overnight started on Levophed 15 mics and Vasopressin. Sedated with fentanyl, Diprivan and intubated. Afebrile. BC from yesterday GPC. 04/12: Currently afebrile. Currently on norepinephrine at 6 mcg/m and vasopressin 0.04 units per minute sedated on the ventilator and propofol and fentanyl drips. Currently undergoing small bowel follow-through. Subjective 04/13: Currently on propofol at 9 mcg/kg per minute. Off fentanyl drip. Small bowel follow-through revealed transition to colon at 4 hours. No signs of bowel obstruction. Small bowel is mildly dilatated. Creatinine currently 2.1. Edematous. Vasopressor requirements decreasing. Objective Vital Signs Date Time Temp Pulse Resp B/P (MAP) Pulse Ox O2 Delivery O2 Flow Rate FiO2 04/13/17 07:38 72 146/54 04/13/17 04:28 100 40 04/13/17 04:00 97.9 04/13/17 04:00 9 04/10/17 16:55 Ventilator 04/10/17 15:12 15.00 Intake and Output 04/13/17 04/13/17 04/14/17 08:00 16:00 00:00 Intake Total 1927 ml Output Total 700 ml Balance 1227 ml Result Diagram: 04/13/17 0330 04/13/17 0330 Other Results Microbiology Date/Time Source Procedure Growth Status 04/11/17 11:18 Blood Peripheral Aerobic Blood Culture - Preliminary NO GROWTH IN 1 DAY Resulted 04/11/17 11:18 Blood Peripheral Anaerobic Blood Culture - Preliminary NO GROWTH IN 1 DAY Resulted 04/13/17 03:25 Stool Stool Cryptosporidium Exam Pending Received 04/13/17 03:25 Stool Stool Stool Pus (CHRISTIANO) Pending Received 04/13/17 03:25 Stool Stool Giardia Antigen (CHRISTIANO) Pending Received 04/11/17 20:00 Sputum Endotracheal Gram Stain - Final Resulted 04/11/17 20:00 Sputum Culture - Preliminary Gram Negative Andrés Resulted 04/10/17 15:55 Urine Catheterized Urine Legionella Antigen - Final PRESUMPTIVE NEGATIVE FOR LEGIONELLA P... Complete 04/10/17 15:55 Urine Catheterized Urine Streptococcus pneumoniae Antigen (M - Final PRESUMPTIVE NEGATIVE FOR STREPTOCOCCU... Complete Imaging Last Impressions Abdomen X-Ray 04/12/17 0600 Signed Impressions: Service Date/Time: Wednesday, April 12, 2017 04:23 - CONCLUSION: Unchanged dilatation of the small bowel. Anthony Duncan Jr., MD Small Bowel X-Ray 04/12/17 0000 Signed Impressions: Service Date/Time: Wednesday, April 12, 2017 14:36 - CONCLUSION: 1. Mild small bowel dilatation without obstruction. Contrast reaches distal colon by 4 hours. Abrahan Gómez MD Chest X-Ray 04/12/17 0000 Signed Impressions: Service Date/Time: Wednesday, April 12, 2017 04:20 - CONCLUSION: Unchanged right effusion and bibasilar infiltrates. Anthony Duncan Jr., MD Head CT 04/10/17 1648 Signed Impressions: Service Date/Time: Monday, April 10, 2017 17:11 - CONCLUSION: 1. No acute intracranial abnormality or significant interval change. Daniel Carvajal MD Abdomen/Pelvis CT 04/10/17 1625 Signed Impressions: Service Date/Time: Monday, April 10, 2017 17:15 - CONCLUSION: Mild fluid and gaseous distention of small bowel, mainly the proximal small bowel. No acute focal findings in the abdomen or pelvis on noncontrast evaluation. King Shi MD Chest CT 04/10/17 0000 Signed Impressions: Service Date/Time: Monday, April 10, 2017 17:15 - CONCLUSION: 1. ETT just above the kimberlyn. 2. Dense right lower lobe airspace consolidation with diffuse patchy nodular airspace disease throughout the remainder of the right lung and at the extreme left lung base. Findings are most consistent with pneumonia, atypical infection or aspiration. 3. No significant effusion or pneumothorax. Daniel Carvajal MD Objective Remarks GENERAL: Patient is 72 yo critically ill orotracheally intubated SKIN: Warm and dry. No rash HEAD: Normocephalic. EYES: No scleral icterus. No injection or drainage. NECK: Supple, trachea midline. No JVD or lymphadenopathy. CARDIOVASCULAR: Regular rate and rhythm currently. S1, S2 no S4. Without murmurs, gallops, or rubs. RESPIRATORY: Breath sounds equal bilaterally. No accessory muscle use. GASTROINTESTINAL: Abdomen soft, non-tender, obese. No bowel sounds are appreciated : Cuellar in place with resolved Hematuria. MUSCULOSKELETAL: +2 edema. Neuro: Arousable on the ventilator. Opens eyes to stimulation. Positive gag. Positive corneal reflex. Moves all 4 extremities spontaneously. Vascular Central Line Catheter: Yes Assessment to: Continue Date of Insertion: Apr 10, 2017 Line: Central Venous Catheter Side: Right Location: Subclavian A/P Assessment and Plan Neuro/Psych: History of CVA with left-sided weakness Patient is currently on propofol at 9 g per minute for sedation/analgesia while intubated Fentanyl drip currently on hold due to small bowel dilatation Goal of RA SS -2 Daily sedation vacation when appropriate. 04/10 -CT brain without contrast: No acute abnormalities. Pulm : Acute respiratory failure secondary to pneumonia/gram-negative andrés LAXMI COPD Continue with vent support and maintain sats above 92%. Ventilator bundle PRVC 14/500/07/12/40 Albuterol/ipratropium aerosols every 6 hours with albuterol aerosols every 2 hours as needed for dyspnea Chest x-ray revealed worsening pneumonia today CT chest: Dense right lower lobe airspace consolidation with diffuse patchy nodular airspace disease throughout the remainder of the right lung and at the extreme left lung base. Findings are most consistent with pneumonia, CV: Septic shock History of paroxysmal atrial fibrillation currently normal sinus rhythm Hypertension Dyslipidemia Currently on norepinephrine at 4 mics grams per minute and vasopressin 0.04 units per minute goal keep MAP> 65 mmHg. On normal saline at 100 cc an hour Echo: In February : EF 55-60%. Lactic acid: 1.9 Repeat echocardiogram pending rule out endocarditis Discontinue Flowtrack with intermittent A. fib. Normal sinus rhythm cardiac index around 4. SVV 6 Renal/FEN/: Hematuria Hypocalcemia Hypopotassemia Monitor renal function, I/O's and avoid nephrotoxins Renal and Urology consulted. Creatinine normalizing. On continuous bladder irrigations with Amicar Change IVF- NS @100ml/hr 40 mEq KCl, 3 g magnesium sulfate. Recheck this afternoon GI: small bowel dilatation On Protonix 40 mg IV daily for GI prophylaxis. OGT to LIWS- Small bowel follow-through - mild dilatation of small bowel however contrast does transition to: Within 4 hours. KUB - small bowel dilatation. Contrast rectum. CT evidence as well as revealed possible small bowel obstruction. For small bowel follow-through today GI consulted appreciated ID: Enterococcus faecalis bacteremia Proteus UTI Gram-negative andrés pneumonia Continue with abx ( vanco, piperacillin/tazobactam, Azithromycin) Monitor for signs infections (fever and WBC) Pharmacy to adjust doses of abx per renal function. 04/10 blood cultures Enterococcus faecalis 3/ bottles. Check BC x 2 sets 04/10. 04/11 blood cultures no growth 04/10 UA positive Proteus 04/11 - sputum - gram-negative andrés Influenza screening, strep pneumonia and Legionella urinary Ag negative. Follow up on urine cx, check sputum cx Wound care is following for sacral wound ulcers. Endo: Diabetes mellitus Increase SSI to medium scale with Accu-Chek q.4h for glycemic control. Continue detemir 7units BID Heme: Leukocytosis Normocytic anemia Thrombocytosis Monitor CBC and coags. GI prophylaxis with pantoprazole 40 mg daily and DVT prophylaxis with SCDs Not on chemical anticoagulation prophylaxis due to hematuria Lines: Right subclavian CVP, Right rad Art line placed 04/10 Patient is critically ill with septic shock, resp failure, ARF, pneumonia, UTI CCT 30 mins Bernardo Sheikh MD Apr 13, 2017 08:19
[2017-04-13] MEDS: AMINOCAPROIC ACID INJ 3,000 MG in SODIUM CHLORIDE 0.9% IRR BAG 3,000 ML IRRIGATION SCH ×6 (08:20→22:15)
[2017-04-13 08:27] LABS: BANDS 11 % (0-6); METAMYELOCYTES 3 % (0-1); NEUTROPHIL # MANUAL DIFF 24.1 TH/MM3 (1.8-7.7); PLATELET ESTIMATE SMEAR HIGH (NORMAL); PLATELET MORPHOLOGY NORMAL (NORMAL); POLYS (SEG NEUTROPHILS) 78 % (16-70); SCAN/DIFF FINAL DIFF MANUAL; WBC DIFF SAMPLE 100
[2017-04-13] MEDS: VASOPRESSIN INJ 40 UNITS in DEXTROSE 5% IN WATER 100ML INJ 98 ML IV SCH ×2 (08:31)
[2017-04-13 08:32] LABS: TOXIC VACUOLATION PRESENT (NONE SEEN)
[2017-04-13] MEDS ORDERED: ALBUMIN HUMAN 25% 25 GM/100 ML BAGP IV ONE (09:00)
[2017-04-13] MEDS ORDERED: FUROSEMIDE 20 MG/2 ML VIAL IV PUSH ONE (09:00)
[2017-04-13] MEDS: SENNOSIDES SYRUP 8.8 MG/5 ML CUP PO SCH (09:05)
[2017-04-13] MEDS: POLYETHYLENE GLYCOL 17 GM PKG PO SCH (09:05)
[2017-04-13] MEDS: CALCIUM/VITAMIN D 250 MG/125 U TAB PO SCH ×2 (09:07→21:30)
[2017-04-13] MEDS: DOCUSATE SODIUM 50 MG/SENNA 8.6 MG TAB PO SCH ×2 (09:07→21:00)
[2017-04-13] MEDS: LANTHANUM CARBONATE 500 MG CHEWABLE TABLET CHEW SCH ×3 (09:07→17:26)
[2017-04-13] MEDS: INSULIN DETEMIR 100 UNITS/ML VIAL SQ SCH ×2 (09:54→21:00)
--- NOTE | 2017-04-13 11:11 | HHI.NPPN ---
Subjective History of Present Illness 72-year-old female known to me from her last admission when she was admitted in October of this year with past medical history of hypertension, diabetes mellitus, chronic kidney disease, history of cerebrovascular accident, hyperlipidemia, sleep apnea, atrial fibrillation, was admitted with altered mental status. I was called to see the patient because of elevated BUN and creatinine. I saw her when she was here in October and at that time her creatinine was as high as 2.8 and then it improved to around 1.4-1.6, which is probably her baseline. Additional Remarks Patient remain on the vent, sedated, clinically same. Review of Systems General General Remarks Intubated and sedated. Objective Data Data 04/13/17 04/14/17 18:59 06:59 Intake Total 1927 ml Output Total 700 ml Balance 1227 ml Intake IV Total 1927 ml Output Urine Total 700 ml # Bowel Movements 4 Vital Signs Date Time Temp Pulse Resp B/P (MAP) Pulse Ox O2 Delivery O2 Flow Rate FiO2 04/13/17 08:31 64 128/53 04/13/17 07:56 100 40 04/13/17 07:38 72 146/54 04/13/17 06:00 98 04/13/17 04:28 100 40 04/13/17 04:00 63 110/56 (74) 109/51 (70) 04/13/17 04:00 97.9 04/13/17 04:00 97.5 63 9 85/40 (55) 100 04/13/17 04:00 75 04/13/17 04:00 40 04/13/17 02:00 64 04/13/17 00:00 63 110/56 (74) 109/51 (70) 04/13/17 00:00 40 04/13/17 00:00 98.3 67 4 123/79 (94) 100 105/49 (67) 04/13/17 00:00 67 04/12/17 23:57 100 40 04/12/17 22:00 67 04/12/17 20:09 100 40 04/12/17 20:00 67 04/12/17 20:00 98.1 67 7 142/67 (92) 100 141/56 (84) 04/12/17 20:00 40 04/12/17 20:00 63 110/56 (74) 109/51 (70) 04/12/17 18:00 63 04/12/17 16:00 63 110/56 (74) 109/51 (70) 04/12/17 16:00 64 04/12/17 16:00 97.7 63 15 110/56 (74) 100 109/51 (70) 04/12/17 16:00 40 04/12/17 15:45 100 40 04/12/17 14:00 63 04/12/17 13:31 63 126/43 04/12/17 12:21 61 119/39 04/12/17 12:16 63 120/40 04/12/17 12:00 40 04/12/17 12:00 62 127/86 (100) 118/39 (65) 04/12/17 12:00 97.0 62 15 127/86 (100) 100 118/39 (65) 04/12/17 12:00 62 04/12/17 11:13 63 127/44 -: 04/13/17 0330 04/13/17 0330 Microbiology 04/13/17 Cryptosporidium Exam, Resulted Pending 04/13/17 Stool Pus (CHRISTIANO) - Final, Resulted RARE WBC 04/13/17 Giardia Antigen (CHRISTINAO), Resulted Pending 04/13/17 , Received Pending Physical Exam General Appearance Remarks Intubated and sedated. Eyes Eye Exam: Pupils Equal Throat Throat Exam: Oral Mucosa Mcclave & Moist Neck Neck Exam: Neck Supple Pulmonary Resp Exam: Rhonchi, Decreased Bases, Diminished Breath Sounds, Poor Inspiratory Effort Cardiology CV Exam: Regular, Normal Sinus Rhythm Gastrointestinal/Abdomen GI Exam: Soft, Non-Tender, Bowel Sounds Present, Distended Extremeties Extremities Exam: Moderate Edema, Pitting Edema Neurologic Neuro Exam: Sedated Assessment/Plan Assessment Summary: HIRAM/Acute Renal Failure, Hypotension, CKD Stage III Problem List: (1) Dyspnea ICD Codes: R06.00 - Dyspnea, unspecified Status: Acute (2) Diabetes mellitus ICD Codes: E11.9 - Type 2 diabetes mellitus without complications Status: Chronic (3) Leukocytosis ICD Codes: D72.829 - Elevated white blood cell count, unspecified Status: Resolved (4) Encephalopathy ICD Codes: G93.40 - Encephalopathy, unspecified Status: Acute (5) Pneumonia ICD Codes: J18.9 - Pneumonia, unspecified organism Status: Acute (6) Acute respiratory failure ICD Codes: J96.00 - Acute respiratory failure, unspecified whether with hypoxia or hypercapnia Status: Acute (7) Anemia ICD Codes: D64.9 - Anemia, unspecified Status: Acute (8) Sepsis ICD Codes: A41.9 - Sepsis, unspecified organism Status: Resolved (9) UTI (urinary tract infection) ICD Codes: N39.0 - Urinary tract infection, site not specified Status: Resolved (10) Acute renal failure ICD Codes: N17.9 - Acute kidney failure, unspecified Status: Acute (11) Acute worsening of stage 3 chronic kidney disease ICD Codes: N18.3 - Chronic kidney disease, stage 3 (moderate) Status: Acute Plan Patient has chronic kidney disease. The baseline Creatinine is 1.7-1.8. Now develop HIRAM, possibly related to Hypotension and ATN. Has sepsis and UTI, BP is low, on pressors. Has hematuria, and on CBI. Creatinine is improving , now 2.0, K is low 3.0. Also Mg and calcium danilo and replaced. Continue antibiotics.Avoid Nephrotoxins. Follow the Vanco. level. Continue IVF and CBI. Problem Qualifiers (1) Pneumonia: Qualified Codes: J18.9 - Pneumonia, unspecified organism (2) Acute respiratory failure: Qualified Codes: J96.00 - Acute respiratory failure, unspecified whether with hypoxia or hypercapnia (3) Anemia: Qualified Codes: D64.9 - Anemia, unspecified (4) Sepsis: Qualified Codes: A41.9 - Sepsis, unspecified organism (5) UTI (urinary tract infection): Qualified Codes: N39.0 - Urinary tract infection, site not specified (6) Acute renal failure: Qualified Codes: N17.9 - Acute kidney failure, unspecified Bree Dill MD Apr 13, 2017 11:10
--- NOTE | 2017-04-13 11:37 | HHI.IDPN ---
Subjective Subjective Remarks remains unstable On vent On pressors Not much secretions Antibiotics vanco zosyn azithro Allergies: Coded Allergies: *MDRO Multi-Drug Resistant Organism (Verified Adverse Reaction, Unknown, ) MRSA PCR Screen POSITIVE - 10/24/2016 MRSA (sputum)-10/24/16 Objective . Vital Signs Date Time Temp Pulse Resp B/P (MAP) Pulse Ox O2 Delivery O2 Flow Rate FiO2 04/13/17 08:31 64 128/53 04/13/17 07:56 100 40 04/13/17 07:38 72 146/54 04/13/17 06:00 98 04/13/17 04:28 100 40 04/13/17 04:00 63 110/56 (74) 109/51 (70) 04/13/17 04:00 97.9 04/13/17 04:00 97.5 63 9 85/40 (55) 100 04/13/17 04:00 75 04/13/17 04:00 40 04/13/17 02:00 64 04/13/17 00:00 63 110/56 (74) 109/51 (70) 04/13/17 00:00 40 04/13/17 00:00 98.3 67 4 123/79 (94) 100 105/49 (67) 04/13/17 00:00 67 04/12/17 23:57 100 40 04/12/17 22:00 67 04/12/17 20:09 100 40 04/12/17 20:00 67 04/12/17 20:00 98.1 67 7 142/67 (92) 100 141/56 (84) 04/12/17 20:00 40 04/12/17 20:00 63 110/56 (74) 109/51 (70) 04/12/17 18:00 63 04/12/17 16:00 63 110/56 (74) 109/51 (70) 04/12/17 16:00 64 04/12/17 16:00 97.7 63 15 110/56 (74) 100 109/51 (70) 04/12/17 16:00 40 04/12/17 15:45 100 40 04/12/17 14:00 63 04/12/17 13:31 63 126/43 04/12/17 12:21 61 119/39 04/12/17 12:16 63 120/40 04/12/17 12:00 40 04/12/17 12:00 62 127/86 (100) 118/39 (65) 04/12/17 12:00 97.0 62 15 127/86 (100) 100 118/39 (65) 04/12/17 12:00 62 04/13/17 04/13/17 04/14/17 15:00 23:00 07:00 Intake Total 1927 ml Output Total 700 ml Balance 1227 ml Intake IV Total 1927 ml Output Urine Total 700 ml # Bowel Movements 4 . Laboratory Tests Test 04/12/17 04:40 04/13/17 03:30 White Blood Count 24.1 TH/MM3 26.2 TH/MM3 Red Blood Count 3.35 MIL/MM3 3.25 MIL/MM3 Hemoglobin 9.5 GM/DL 9.2 GM/DL Hematocrit 28.5 % 27.4 % Mean Corpuscular Volume 85.1 FL 84.2 FL Mean Corpuscular Hemoglobin 28.2 PG 28.3 PG Mean Corpuscular Hemoglobin Concent 33.2 % 33.6 % Red Cell Distribution Width 18.8 % 19.0 % Platelet Count 515 TH/MM3 455 TH/MM3 Mean Platelet Volume 8.4 FL 8.4 FL Neutrophils (%) (Auto) 75.2 % 88.0 % Lymphocytes (%) (Auto) 19.7 % 9.4 % Monocytes (%) (Auto) 3.8 % 2.4 % Eosinophils (%) (Auto) 0.9 % 0.2 % Basophils (%) (Auto) 0.4 % 0.0 % Neutrophils # (Auto) 18.1 TH/MM3 23.1 TH/MM3 Lymphocytes # (Auto) 4.8 TH/MM3 2.5 TH/MM3 Monocytes # (Auto) 0.9 TH/MM3 0.6 TH/MM3 Eosinophils # (Auto) 0.2 TH/MM3 0.0 TH/MM3 Basophils # (Auto) 0.1 TH/MM3 0.0 TH/MM3 CBC Comment AUTO DIFF AUTO DIFF Differential Total Cells Counted 100 100 Neutrophils % (Manual) 66 % 78 % Band Neutrophils % 15 % 11 % Lymphocytes % 15 % 7 % Monocytes % 1 % 1 % Eosinophils % 2 % Neutrophils # (Manual) 19.5 TH/MM3 24.1 TH/MM3 Differential Comment FINAL DIFF MANUAL FINAL DIFF MANUAL Blastocytes 1 % Toxic Granulation 2+ Platelet Estimate HIGH HIGH Platelet Morphology Comment ENLARGED NORMAL Metamyelocytes 3 % Toxic Vacuolation PRESENT Laboratory Tests Test 04/12/17 04:40 04/13/17 03:30 Blood Urea Nitrogen 80 MG/DL 72 MG/DL Creatinine 2.65 MG/DL 2.08 MG/DL Random Glucose 117 MG/DL 136 MG/DL Total Protein 6.0 GM/DL 5.8 GM/DL Calcium Level 6.4 MG/DL 6.8 MG/DL Sodium Level 130 MEQ/L 133 MEQ/L Potassium Level 3.2 MEQ/L 3.0 MEQ/L Chloride Level 92 MEQ/L 96 MEQ/L Carbon Dioxide Level 26.0 MEQ/L 25.0 MEQ/L Anion Gap 12 MEQ/L 12 MEQ/L Estimat Glomerular Filtration Rate 18 ML/MIN 23 ML/MIN Protein Corrected Calcium 6.9 MG/DL 7.5 MG/DL Albumin 1.2 GM/DL Phosphorus Level 3.7 MG/DL Magnesium Level 1.3 MG/DL Alkaline Phosphatase 294 U/L Aspartate Amino Transf (AST/SGOT) 25 U/L Alanine Aminotransferase (ALT/SGPT) 10 U/L Total Bilirubin 0.5 MG/DL Total Creatine Kinase 44 U/L Microbiology Date/Time Source Procedure Growth Status 04/11/17 11:18 Blood Peripheral Aerobic Blood Culture - Preliminary NO GROWTH IN 2 DAYS Resulted 04/11/17 11:18 Blood Peripheral Anaerobic Blood Culture - Preliminary NO GROWTH IN 2 DAYS Resulted 04/11/17 11:10 Blood Peripheral Aerobic Blood Culture - Preliminary NO GROWTH IN 2 DAYS Resulted 04/11/17 11:10 Blood Peripheral Anaerobic Blood Culture - Preliminary NO GROWTH IN 2 DAYS Resulted 04/10/17 15:15 Blood Peripheral Aerobic Blood Culture - Preliminary Gram Positive Cocci Resulted 04/10/17 15:15 Anaerobic Blood Culture - Preliminary Enterococcus Faecalis Resulted 04/10/17 15:10 Blood Peripheral Aerobic Blood Culture - Preliminary Enterococcus Faecalis Resulted 04/10/17 15:10 Anaerobic Blood Culture - Preliminary Enterococcus Faecalis Resulted 04/13/17 03:25 Stool Stool Cryptosporidium Exam Pending Resulted 04/13/17 03:25 Stool Stool Stool Pus (CHRISTIANO) - Final RARE WBC Resulted 04/13/17 03:25 Stool Stool Giardia Antigen (CHRISTIANO) Pending Resulted 04/13/17 03:25 Stool Stool Pending Received 04/11/17 20:00 Sputum Endotracheal Gram Stain - Final Resulted 04/11/17 20:00 Sputum Culture - Preliminary Gram Negative Andrés Resulted 04/10/17 15:55 Nasal Aspirate Influenza Types A,B Antigen (CHRISTIANO) - Final NEGATIVE FOR FLU A AND B ANTIGEN.... Complete 04/10/17 15:55 Urine Catheterized Urine Legionella Antigen - Final PRESUMPTIVE NEGATIVE FOR LEGIONELLA P... Complete 04/10/17 15:55 Urine Catheterized Urine Streptococcus pneumoniae Antigen (M - Final PRESUMPTIVE NEGATIVE FOR STREPTOCOCCU... Complete 04/10/17 15:55 Urine Catheterized Urine Urine Culture - Final Proteus Mirabilis Complete Imaging Last Impressions Chest X-Ray 04/13/17 0600 Signed Impressions: Service Date/Time: Thursday, April 13, 2017 04:03 - CONCLUSION: Worsening bilateral pulmonary infiltrates. Anthony Duncan Jr., MD Abdomen X-Ray 04/13/17 0600 Signed Impressions: Service Date/Time: Thursday, April 13, 2017 04:10 - CONCLUSION: Unchanged dilated small bowel. Oral contrast reaches the rectal vault. Anthony Duncan Jr., MD Small Bowel X-Ray 04/12/17 0000 Signed Impressions: Service Date/Time: Wednesday, April 12, 2017 14:36 - CONCLUSION: 1. Mild small bowel dilatation without obstruction. Contrast reaches distal colon by 4 hours. Abrahan Gómez MD Head CT 04/10/17 1648 Signed Impressions: Service Date/Time: Monday, April 10, 2017 17:11 - CONCLUSION: 1. No acute intracranial abnormality or significant interval change. Daniel Carvajal MD Abdomen/Pelvis CT 04/10/17 1625 Signed Impressions: Service Date/Time: Monday, April 10, 2017 17:15 - CONCLUSION: Mild fluid and gaseous distention of small bowel, mainly the proximal small bowel. No acute focal findings in the abdomen or pelvis on noncontrast evaluation. King Shi MD Chest CT 04/10/17 0000 Signed Impressions: Service Date/Time: Monday, April 10, 2017 17:15 - CONCLUSION: 1. ETT just above the kimberlyn. 2. Dense right lower lobe airspace consolidation with diffuse patchy nodular airspace disease throughout the remainder of the right lung and at the extreme left lung base. Findings are most consistent with pneumonia, atypical infection or aspiration. 3. No significant effusion or pneumothorax. Daniel Carvajal MD Physical Exam CONSTITUTIONAL/GENERAL: This is a morbidly obese patient, in no apparent distress. Int'd on mech vent'n TUBES/LINES/DRAINS: SKIN: No jaundice, rashes, or lesions. Skin temperature appropriate. Not diaphoretic. EYES: Pupils equal and round and reactive. Extraocular motions intact. No scleral icterus. No injection or drainage. Fundi not examined. ENT: Hearing OK, opens eyes, follows commands . Orally intubated NECK: Trachea midline. CARDIOVASCULAR: Regular rate and rhythm without murmurs, gallops, or rubs. No JVD. Peripheral pulses symmetric. RESPIRATORY/CHEST: Symmetric, unlabored respirations. Clear to auscultation. Breath sounds equal bilaterally. No wheezes, rales, or rhonchi. GASTROINTESTINAL: Abdomen soft, non-tender, very distended. Tympanic in mid abdomen No hepato-splenomegaly, or palpable masses. No guarding. Bowel sounds present. GENITOURINARY: Without palpable bladder distension. Cuellar catheter in place with pink urine (constant irrigation) MUSCULOSKELETAL: Extremities without clubbing, cyanosis, + edema, unchanged NEUROLOGICAL: sedated Opens eyes to voice Moves spontaneously all extremeeties PSYCHIATRIC: Unable to assess Assessment & Plan Remarks Assessment and Plan sepsis UTI, Proteus Gross hematuria Acute VDRF ARF: improving ? PNA - sputum with GNB Enterococcal high grade bacteremia - S P ? source is unclear; has Proteus in the urine, not Enterococcus ? ? GI ? endocarditis - repeart BC negative Ileus no e/o small bowel obstruction Critically ill, unstable cont current abx (azithro, vanco, zosyn) fu urine, blood clx - fu sputum clx isolate - fu 2 D echo dw Vicki Ley MD Apr 13, 2017 11:37
[2017-04-13] MEDS: PANTOPRAZOLE SODIUM 40 MG VIAL IV PUSH SCH (15:26)
[2017-04-13] MEDS: AZITHROMYCIN INJ 500 MG in SODIUM CHLOR 0.9% 250 ML INJ 250 ML IV SCH (18:03)
[2017-04-13 21:29] LABS: POTASSIUM 3.2 MEQ/L (3.5-5.1)
[2017-04-13 21:31] LABS: MAGNESIUM 1.7 MG/DL (1.5-2.5)
[2017-04-14] VITALS (17 sets, daily range): BP systolic 107–163; BP diastolic 39–81; PULSE 63–80; RESP 12–17; TEMP 96.7–98.9; O2SAT 95–99
[2017-04-14] MEDS: RESP: ALBUTEROL 2.5 MG/IPRATROPIUM 0.5 MG NEB (SCH) INH ×3 (03:41→14:35)
[2017-04-14] MEDS: INSULIN NovoLIN REGULAR SUPPLEMENTAL SCALE SQ SCH ×5 (04:00→20:00)
[2017-04-14] MEDS: CHLORHEXIDINE GLUCONATE 2 % 1 PACK (2 CLOTHS) TOP SCH (04:00)
[2017-04-14] MEDS: VASOPRESSIN INJ 40 UNITS in DEXTROSE 5% IN WATER 100ML INJ 98 ML IV SCH ×4 (05:17→17:16)
[2017-04-14] MEDS: PIPERACIL-TAZO 2.25 GM PREMIX 50 ML IV SCH ×3 (05:18→17:16)
[2017-04-14] MEDS: NOREPINEPHRINE 4 MG/D5W 250 ML IV PRN ×3 (05:19→21:17)
[2017-04-14] MEDS: METOCLOPRAMIDE HCL 10 MG/2 ML VIAL IV PUSH SCH ×3 (05:19→20:25)
[2017-04-14] MEDS: PROPOFOL 1000 MG/100 ML IV PRN ×3 (05:20→20:26)
[2017-04-14] MEDS: AMINOCAPROIC ACID INJ 3,000 MG in SODIUM CHLORIDE 0.9% IRR BAG 3,000 ML IRRIGATION SCH ×3 (05:21→20:22)
[2017-04-14 06:10] LABS: AUTOMATED NEUTROPHIL # 21.7 TH/MM3 (1.8-7.7); BASOPHIL # 0.1 TH/MM3 (0-0.2); BASOPHIL % 0.2 % (0.0-2.0); EOSINOPHIL # 0.2 TH/MM3 (0-0.4); EOSINOPHIL % 0.6 % (0.0-4.0); HEMATOCRIT 25.3 % (35.0-46.0); LYMPH % 10.8 % (9.0-44.0); LYMPHOCYTE # 2.7 TH/MM3 (1.0-4.8); MEAN CELL VOLUME 84.7 FL (80.0-100.0); MEAN CORPUSCULAR HEMOGLOBIN 27.7 PG (27.0-34.0); MEAN CORPUSCULAR HGB CONC 32.7 % (32.0-36.0); MONO % 1.5 % (0.0-8.0); NEUT % 86.9 % (16.0-70.0); PLATELET COUNT 373 TH/MM3 (150-450); RED BLOOD COUNT 2.98 MIL/MM3 (4.00-5.30); RED CELL DISTRIBUTION WIDTH 19.6 % (11.6-17.2)
[2017-04-14 06:22] LABS: HEMO FLAGS AUTO DIFF
[2017-04-14 06:59] LABS: BICARBONATE 22.1 MEQ/L (21.0-32.0); CALCIUM-PROTEIN CORRECTED 7.8 MG/DL (8.5-10.1); MAGNESIUM 1.6 MG/DL (1.5-2.5); TOTAL BILIRUBIN ADULT 0.8 MG/DL (0.2-1.0)
[2017-04-14 07:29] LABS: POTASSIUM 2.8 MEQ/L (3.5-5.1)
[2017-04-14] MEDS: POTASSIUM CHLOR 40 MEQ PREMIX 100 ML IV SCH ×2 (08:02→12:15)
[2017-04-14 08:06] LABS: BANDS 7 % (0-6); METAMYELOCYTES 2 % (0-1); NEUTROPHIL # MANUAL DIFF 22.5 TH/MM3 (1.8-7.7); POLYS (SEG NEUTROPHILS) 81 % (16-70); WBC DIFF SAMPLE 100
[2017-04-14 08:08] LABS: PLATELET ESTIMATE SMEAR NORMAL (NORMAL); PLATELET MORPHOLOGY ENLARGED (NORMAL); SCAN/DIFF FINAL DIFF MANUAL; TOXIC GRANULATION 2+ (NORMAL)
[2017-04-14] MEDS: MAGNESIUM OXIDE 400 MG TAB PO SCH ×2 (08:49→20:23)
[2017-04-14] MEDS: MAGNESIUM SULFATE 1 GM PREMIX 100 ML IV SCH ×3 (08:49→10:44)
[2017-04-14] MEDS: LANTHANUM CARBONATE 500 MG CHEWABLE TABLET CHEW SCH ×3 (08:49→18:00)
[2017-04-14] MEDS: POLYETHYLENE GLYCOL 17 GM PKG PO SCH (08:50)
[2017-04-14] MEDS: CALCIUM/VITAMIN D 250 MG/125 U TAB PO SCH ×2 (08:50→20:23)
[2017-04-14] MEDS: SENNOSIDES SYRUP 8.8 MG/5 ML CUP PO SCH (08:50)
[2017-04-14] MEDS: DOCUSATE SODIUM 50 MG/SENNA 8.6 MG TAB PO SCH ×2 (08:51→20:23)
[2017-04-14] MEDS: SODIUM CHLOR 0.9% 1000 ML INJ 1,000 ML IV SCH ×2 (08:52→18:45)
[2017-04-14] MEDS: INSULIN DETEMIR 100 UNITS/ML VIAL SQ SCH ×2 (09:00→20:23)
--- NOTE | 2017-04-14 13:40 | HHI.CCPN ---
Subjective Remarks/Hospital Course The patient is a 72-year-old female with multiple medical comorbidities which include hypertension, diabetes mellitus, hyperlipidemia, obstructive sleep apnea on C-PAP machine at home, COPD, CVA with residual left-sided hemiparesis who presented to [facility] ED with altered mental status and emesis. She was last seen normal yesterday. The patient was on non-rebreather mask initially, however, she was intubated with etomidate, succinylcholine and placed on mechanical ventilation. Also she was placed on Versed drip for sedation. ABG post intubation showed acute hypercapnic respiratory failure with a pH of 7.36, CO2 51, pAO2 322, bicarb 28 and saturation 97%. Her laboratory data significant for acute renal failure with a BUN of 91, creatinine 3.65. Lactic acid was 1.9. Also she was found to have leukocytosis with a WBC of 17.1 associated with bandemia of 26. Her urinalysis was positive for leukocyte esterase, moderate blood and many bacteria. Chest x-ray post intubation showed ET tube above the kimberlyn, questionable elevation of right hemidiaphragm with subsegmental atelectasis. In the ER she is currently receiving a second liter of IV fluids and received cefepime and vancomycin. A Cuellar was placed in the ER and post placement the patient noted to have hematuria. to her altered mental status she was scheduled to undergo CT scan of the brain without contrast. Of note the patient was on Eliquis for a history of paroxysmal atrial fibrillation. Also a CT scan of the thorax, abdomen, pelvis without contrast were ordered by the ED physician. Most of the history was obtained from reviewing medical records as the patient is intubated and no family members present at the bedside 04/11 Patient became hypotensive overnight started on Levophed 15 mics and Vasopressin. Sedated with fentanyl, Diprivan and intubated. Afebrile. BC from yesterday GPC. 04/12: Currently afebrile. Currently on norepinephrine at 6 mcg/m and vasopressin 0.04 units per minute sedated on the ventilator and propofol and fentanyl drips. Currently undergoing small bowel follow-through. 04/13: Currently on propofol at 9 mcg/kg per minute. Off fentanyl drip. Small bowel follow-through revealed transition to colon at 4 hours. No signs of bowel obstruction. Small bowel is mildly dilatated. Creatinine currently 2.1. Edematous. Vasopressor requirements decreasing. Subjective 04/14: Afebrile. Currently on propofol; at 10 g per kilogram per minute. Positive BM. Creatinine Is currently at baseline 1.8. Abdominal x-ray pending Objective Vital Signs Date Time Temp Pulse Resp B/P (MAP) Pulse Ox O2 Delivery O2 Flow Rate FiO2 04/14/17 13:17 72 106/53 04/14/17 11:56 95 40 04/14/17 04:00 97.9 12 04/10/17 16:55 Ventilator 04/10/17 15:12 15.00 Intake and Output 04/14/17 04/14/17 04/15/17 08:00 16:00 00:00 Intake Total 1971 ml 400 ml Output Total 975 ml Balance 996 ml 400 ml Result Diagram: 04/14/1730 04/14/17 0530 Other Results Microbiology Date/Time Source Procedure Growth Status 04/11/17 11:18 Blood Peripheral Aerobic Blood Culture - Preliminary NO GROWTH IN 3 DAYS Resulted 04/11/17 11:18 Blood Peripheral Anaerobic Blood Culture - Preliminary NO GROWTH IN 3 DAYS Resulted 04/13/17 03:25 Stool Stool Cryptosporidium Exam Pending Resulted 04/13/17 03:25 Stool Stool Stool Pus (CHRISTIANO) - Final RARE WBC Resulted 04/13/17 03:25 Stool Stool Giardia Antigen (CHRISTIANO) Pending Resulted 04/11/17 20:00 Sputum Endotracheal Gram Stain - Final Complete 04/11/17 20:00 Sputum Culture - Final Escherichia Coli Complete 04/10/17 15:55 Urine Catheterized Urine Legionella Antigen - Final PRESUMPTIVE NEGATIVE FOR LEGIONELLA P... Complete 04/10/17 15:55 Urine Catheterized Urine Streptococcus pneumoniae Antigen (M - Final PRESUMPTIVE NEGATIVE FOR STREPTOCOCCU... Complete Imaging Last Impressions Chest X-Ray 04/13/17 0600 Signed Impressions: Service Date/Time: Thursday, April 13, 2017 04:03 - CONCLUSION: Worsening bilateral pulmonary infiltrates. Anthony Duncan Jr., MD Abdomen X-Ray 04/13/17 0600 Signed Impressions: Service Date/Time: Thursday, April 13, 2017 04:10 - CONCLUSION: Unchanged dilated small bowel. Oral contrast reaches the rectal vault. Anthony Duncan Jr., MD Small Bowel X-Ray 04/12/17 0000 Signed Impressions: Service Date/Time: Wednesday, April 12, 2017 14:36 - CONCLUSION: 1. Mild small bowel dilatation without obstruction. Contrast reaches distal colon by 4 hours. Abrahan Gómez MD Head CT 04/10/17 1648 Signed Impressions: Service Date/Time: Monday, April 10, 2017 17:11 - CONCLUSION: 1. No acute intracranial abnormality or significant interval change. Daniel Carvajal MD Abdomen/Pelvis CT 04/10/17 1625 Signed Impressions: Service Date/Time: Monday, April 10, 2017 17:15 - CONCLUSION: Mild fluid and gaseous distention of small bowel, mainly the proximal small bowel. No acute focal findings in the abdomen or pelvis on noncontrast evaluation. King Shi MD Chest CT 04/10/17 0000 Signed Impressions: Service Date/Time: Monday, April 10, 2017 17:15 - CONCLUSION: 1. ETT just above the kimberlyn. 2. Dense right lower lobe airspace consolidation with diffuse patchy nodular airspace disease throughout the remainder of the right lung and at the extreme left lung base. Findings are most consistent with pneumonia, atypical infection or aspiration. 3. No significant effusion or pneumothorax. Daniel Carvajal MD Objective Remarks GENERAL: Patient is 72 yo critically ill orotracheally intubated SKIN: Warm and dry. Decubitus ulcer bilateral gluteal. Stage II. Blanchable. HEAD: Normocephalic. EYES: No scleral icterus. No injection or drainage. NECK: Supple, trachea midline. No JVD or lymphadenopathy. CARDIOVASCULAR: Regular rate and rhythm currently. S1, S2 no S4. Without murmurs, gallops, or rubs. RESPIRATORY: Breath sounds equal bilaterally. No accessory muscle use. GASTROINTESTINAL: Abdomen soft, non-tender, obese. No bowel sounds are appreciated : Cuellar in place with resolved Hematuria. MUSCULOSKELETAL: +2 edema. Neuro: Arousable on the ventilator. Opens eyes to stimulation. Positive gag. Positive corneal reflex. Moves all 4 extremities spontaneously and to command Urinary Catheter: Yes Assessment to: Continue Cuellar insert reason: Prolonged Immobilization Vascular Central Line Catheter: Yes Assessment to: Continue Date of Insertion: Apr 10, 2017 Line: Central Venous Catheter Side: Right Location: Subclavian A/P Assessment and Plan Neuro/Psych: History of CVA with left-sided weakness Patient is currently on propofol at 9 g per minute for sedation/analgesia while intubated Fentanyl drip currently on hold due to small bowel dilatation Goal of RA SS -2 Daily sedation vacation when appropriate. 04/10 -CT brain without contrast: No acute abnormalities. Pulm : Acute respiratory failure secondary to pneumonia/gram-negative grace LAXMI COPD Continue with vent support and maintain sats above 92%. Ventilator bundle PRVC 14/500/07/12/40 Albuterol/ipratropium aerosols every 6 hours with albuterol aerosols every 2 hours as needed for dyspnea Chest x-ray revealed worsening pneumonia today CT chest: Dense right lower lobe airspace consolidation with diffuse patchy nodular airspace disease throughout the remainder of the right lung and at the extreme left lung base. Findings are most consistent with pneumonia, CV: Septic shock History of paroxysmal atrial fibrillation currently normal sinus rhythm Hypertension Dyslipidemia Currently on norepinephrine at 4 mics grams per minute and vasopressin 0.04 units per minute goal keep MAP> 65 mmHg. On normal saline at 100 cc an hour Echo: In February : EF 55-60%. Lactic acid: 1.9 Repeat echocardiogram pending rule out endocarditis still pending Discontinue Flowtrack with intermittent A. fib. Normal sinus rhythm cardiac index around 4. SVV 6 Renal/FEN/: Hematuria Hypocalcemia Hypopotassemia Hyponatremia Hypophosphatemia Monitor renal function, I/O's and avoid nephrotoxins Renal and Urology consulted. Creatinine normalizing. On continuous bladder irrigations with Amicar. Hospital running out of Amicar so will use CBI per urology recommendations Change IVF- NS @100ml/hr 80 mEq KCl, 30 mmol K-Phos Recheck this afternoon GI: small bowel dilatation On Protonix 40 mg IV daily for GI prophylaxis. OGT to LIWS- Small bowel follow-through - mild dilatation of small bowel however contrast does transition to: Within 4 hours. KUB - small bowel dilatation. Contrast rectum. Repeat 04/[address] adamant/pelvis evidence as well as revealed possible small bowel obstruction. For small bowel follow-through today GI consulted appreciated. Will discuss a Dr. Bronson. Okay to initiate trickle feeds today. I'll start with Nepro at 10 cc an hour ID: Enterococcus faecalis bacteremia Proteus UTI Escherichia coli pneumonia Continue with abx ( vanco, piperacillin/tazobactam, Azithromycin) Monitor for signs infections (fever and WBC) Pharmacy to adjust doses of abx per renal function. 04/10 blood cultures Enterococcus faecalis 09/08 bottles. Check BC x 2 sets 04/10. 04/11 blood cultures no growth 04/10 UA positive Proteus 04/11 - sputum -Escherichia coli Influenza screening, strep pneumonia and Legionella urinary Ag negative. Follow up on urine cx, check sputum cx Wound care is following for sacral wound ulcers. Endo: Diabetes mellitus continue SSI to medium scale with Accu-Chek q.4h for glycemic control. Continue detemir 7units BID Heme: Leukocytosis Normocytic anemia Monitor CBC and coags. MSK: Decubitus ulcer Santyl barrier cream twice a day. Free [facility] bed Wound care consulted GI prophylaxis with pantoprazole 40 mg daily and DVT prophylaxis with SCDs Not on chemical anticoagulation prophylaxis due to hematuria Lines: Right subclavian CVL, Right rad Art line placed 04/10 Patient is critically ill with septic shock, resp failure, ARF, pneumonia, UTI CCT 30 mins Bernardo Sheikh MD Apr 14, 2017 13:40
--- NOTE | 2017-04-14 13:49 | HHI.NPPN ---
Subjective History of Present Illness 72-year-old female known to me from her last admission when she was admitted in October of this year with past medical history of hypertension, diabetes mellitus, chronic kidney disease, history of cerebrovascular accident, hyperlipidemia, sleep apnea, atrial fibrillation, was admitted with altered mental status. I was called to see the patient because of elevated BUN and creatinine. I saw her when she was here in October and at that time her creatinine was as high as 2.8 and then it improved to around 1.4-1.6, which is probably her baseline. Additional Remarks Patient remain on the vent, sedated, still on pressors. Review of Systems General General Remarks Intubated and sedated. Objective Data Data 04/14/17 04/15/17 19:00 07:00 Intake Total 400 ml Balance 400 ml Intake IV Total 400 ml Vital Signs Date Time Temp Pulse Resp B/P (MAP) Pulse Ox O2 Delivery O2 Flow Rate FiO2 04/14/17 13:17 72 106/53 04/14/17 11:56 95 40 04/14/17 09:07 96 40 04/14/17 06:00 66 04/14/17 05:19 66 114/41 04/14/17 05:17 68 117/39 04/14/17 04:00 97.9 69 12 163/69 (100) 99 138/58 (84) 04/14/17 04:00 69 04/14/17 04:00 63 163/69 (100) 138/58 (84) 04/14/17 04:00 40 04/14/17 03:41 99 40 04/14/17 02:00 69 04/14/17 00:00 63 143/81 (101) 134/52 (79) 04/14/17 00:00 69 04/14/17 00:00 96.7 69 17 143/81 (101) 99 134/52 (79) 04/14/17 00:00 40 04/13/17 23:51 99 40 04/13/17 22:00 72 04/13/17 21:30 69 125/46 04/13/17 20:40 100 40 04/13/17 20:00 40 04/13/17 20:00 70 04/13/17 20:00 70 117/56 (76) 103/40 (61) 04/13/17 20:00 97.8 70 13 117/56 (76) 99 103/40 (61) 04/13/17 18:00 67 04/13/17 16:00 96.5 69 17 147/63 (91) 100 128/61 (83) 04/13/17 16:00 40 04/13/17 16:00 69 04/13/17 15:03 100 40 04/13/17 14:00 64 -: 04/14/17 0530 04/14/17 0530 Physical Exam General Appearance Remarks Intubated and sedated. Eyes Eye Exam: Pupils Equal Throat Throat Exam: Oral Mucosa [place] & Moist Neck Neck Exam: Neck Supple Pulmonary Resp Exam: Rhonchi, Decreased Bases, Diminished Breath Sounds, Poor Inspiratory Effort Cardiology CV Exam: Regular, Normal Sinus Rhythm Gastrointestinal/Abdomen GI Exam: Soft, Non-Tender, Bowel Sounds Present, Distended Extremeties Extremities Exam: Moderate Edema, Pitting Edema Neurologic Neuro Exam: Sedated Assessment/Plan Assessment Summary: HIRAM/Acute Renal Failure, Hypotension, CKD Stage III Problem List: (1) Dyspnea ICD Codes: R06.00 - Dyspnea, unspecified Status: Acute (2) Diabetes mellitus ICD Codes: E11.9 - Type 2 diabetes mellitus without complications Status: Chronic (3) Leukocytosis ICD Codes: D72.829 - Elevated white blood cell count, unspecified Status: Resolved (4) Encephalopathy ICD Codes: G93.40 - Encephalopathy, unspecified Status: Acute (5) Pneumonia ICD Codes: J18.9 - Pneumonia, unspecified organism Status: Acute (6) Acute respiratory failure ICD Codes: J96.00 - Acute respiratory failure, unspecified whether with hypoxia or hypercapnia Status: Acute (7) Anemia ICD Codes: D64.9 - Anemia, unspecified Status: Acute (8) Sepsis ICD Codes: A41.9 - Sepsis, unspecified organism Status: Resolved (9) UTI (urinary tract infection) ICD Codes: N39.0 - Urinary tract infection, site not specified Status: Resolved (10) Acute renal failure ICD Codes: N17.9 - Acute kidney failure, unspecified Status: Acute (11) Acute worsening of stage 3 chronic kidney disease ICD Codes: N18.3 - Chronic kidney disease, stage 3 (moderate) Status: Acute Plan Patient has chronic kidney disease. The baseline Creatinine is 1.7-1.8. Now develop HIRAM, possibly related to Hypotension and ATN. Has sepsis and UTI, BP is low, on pressors. Has hematuria, and on CBI. Creatinine is improving , now 1.7, K is still low. Both Mg. and K replaced. Continue antibiotics.Avoid Nephrotoxins. Follow the Vanco. level. Continue IVF and CBI, urine is getting clear. Problem Qualifiers (1) Pneumonia: Qualified Codes: J18.9 - Pneumonia, unspecified organism (2) Acute respiratory failure: Qualified Codes: J96.00 - Acute respiratory failure, unspecified whether with hypoxia or hypercapnia (3) Anemia: Qualified Codes: D64.9 - Anemia, unspecified (4) Sepsis: Qualified Codes: A41.9 - Sepsis, unspecified organism (5) UTI (urinary tract infection): Qualified Codes: N39.0 - Urinary tract infection, site not specified (6) Acute renal failure: Qualified Codes: N17.9 - Acute kidney failure, unspecified Bree Dill MD Apr 14, 2017 13:49
--- NOTE | 2017-04-14 14:21 | RADRPT ---
EXAM DATE/TIME: 04/14/2017 13:34 [place] COMPARISON: ABDOMEN KUB ONLY, April 13, 2017, 4:10. INDICATIONS : Distention, concern for ileus. MEDICAL HISTORY : Hypertension. Diabetes mellitus type II. Hernia SURGICAL HISTORY : Appendectomy. Cholecystectomy. ENCOUNTER: Subsequent ACUITY: 4 - 6 days PAIN SCORE: Non-responsive. LOCATION: Bilateral abdomen. FINDINGS: There is a nasogastric tube within the stomach. There are multiple air-filled, dilated loops of small bowel in the mid abdomen concerning for ileus. There is some residual oral contrast within the colon. There are bilateral effusions and diffuse interstitial infiltrate seen within the lung bases. The visualized bony structures are grossly intact. CONCLUSION: 1. Multiple loops of air-filled, dilated small bowel are present suggesting ileus. Kerwin Martinez MD on April 14, 2017 at 14:14 Board Certified Radiologist. This report was verified electronically.
[2017-04-14] MEDS: VANCOMYCIN INJ 1,250 MG in SODIUM CHLOR 0.9% 250 ML INJ 250 ML IV SCH (14:57)
--- NOTE | 2017-04-14 16:41 | HHI.GIFU ---
Subjective Remarks Patient is intubated, OG clamped, still with rectal tube with brown loose stools. (Keila Dimas) Objective Vitals I&O Vital Signs Date Time Temp Pulse Resp B/P (MAP) Pulse Ox O2 Delivery O2 Flow Rate FiO2 04/14/17 16:00 69 04/14/17 15:38 97 40 04/14/17 14:00 80 04/14/17 13:17 72 106/53 04/14/17 12:00 98.9 72 16 109/62 (78) 95 129/52 (77) 04/14/17 12:00 40 04/14/17 12:00 72 04/14/17 11:56 95 40 04/14/17 10:00 77 04/14/17 09:07 96 40 04/14/17 08:00 67 04/14/17 08:00 98.4 67 14 128/58 (81) 98 109/39 (62) 04/14/17 08:00 67 128/58 (81) 109/39 (62) 04/14/17 08:00 40 04/14/17 06:00 66 04/14/17 05:19 66 114/41 04/14/17 05:17 68 117/39 04/14/17 04:00 97.9 69 12 163/69 (100) 99 138/58 (84) 04/14/17 04:00 69 04/14/17 04:00 63 163/69 (100) 138/58 (84) 04/14/17 04:00 40 04/14/17 03:41 99 40 04/14/17 02:00 69 04/14/17 00:00 63 143/81 (101) 134/52 (79) 04/14/17 00:00 69 04/14/17 00:00 96.7 69 17 143/81 (101) 99 134/52 (79) 04/14/17 00:00 40 04/13/17 23:51 99 40 04/13/17 22:00 72 04/13/17 21:30 69 125/46 04/13/17 20:40 100 40 04/13/17 20:00 40 04/13/17 20:00 70 04/13/17 20:00 70 117/56 (76) 103/40 (61) 04/13/17 20:00 97.8 70 13 117/56 (76) 99 103/40 (61) 04/13/17 18:00 67 I/O 04/13/17 04/13/17 04/13/17 04/14/17 04/14/17 04/14/17 07:00 15:00 23:00 07:00 15:00 23:00 Intake Total 2587 ml 1971 ml 400 ml Output Total 700 ml 36146 ml 975 ml Balance 1887 ml -01696 ml 996 ml 400 ml Intake IV Total 2587 ml 1971 ml 400 ml Output Urine Total 700 ml 40784 ml 875 ml Stool Total 200 ml 100 ml # Bowel Movements 4 Laboratory Laboratory Tests Test 04/13/17 18:30 04/14/17 05:30 Potassium Level 3.2 2.8 Magnesium Level 1.7 1.6 White Blood Count 25.0 Red Blood Count 2.98 Hemoglobin 8.3 Hematocrit 25.3 Mean Corpuscular Volume 84.7 Mean Corpuscular Hemoglobin 27.7 Mean Corpuscular Hemoglobin Concent 32.7 Red Cell Distribution Width 19.6 Platelet Count 373 Mean Platelet Volume 8.4 Neutrophils (%) (Auto) 86.9 Lymphocytes (%) (Auto) 10.8 Monocytes (%) (Auto) 1.5 Eosinophils (%) (Auto) 0.6 Basophils (%) (Auto) 0.2 Neutrophils # (Auto) 21.7 Lymphocytes # (Auto) 2.7 Monocytes # (Auto) 0.4 Eosinophils # (Auto) 0.2 Basophils # (Auto) 0.1 CBC Comment AUTO DIFF Differential Total Cells Counted 100 Neutrophils % (Manual) 81 Band Neutrophils % 7 Lymphocytes % 10 Neutrophils # (Manual) 22.5 Metamyelocytes 2 Differential Comment FINAL DIFF MANUAL Toxic Granulation 2+ Platelet Estimate NORMAL Platelet Morphology Comment ENLARGED Blood Urea Nitrogen 54 Creatinine 1.70 Random Glucose 120 Total Protein 5.6 Albumin 1.8 Calcium Level 7.0 Phosphorus Level 3.3 Alkaline Phosphatase 292 Aspartate Amino Transf (AST/SGOT) 36 Alanine Aminotransferase (ALT/SGPT) 9 Total Bilirubin 0.8 Sodium Level 134 Chloride Level 98 Carbon Dioxide Level 22.1 Anion Gap 14 Estimat Glomerular Filtration Rate 29 Lactic Acid Level 1.1 Protein Corrected Calcium 7.8 Total Creatine Kinase 14 Random Vancomycin Level 17.3 Date/Time Source Procedure Growth Status 04/11/17 11:18 Blood Peripheral Aerobic Blood Culture - Preliminary NO GROWTH IN 3 DAYS Resulted 04/11/17 11:18 Blood Peripheral Anaerobic Blood Culture - Preliminary NO GROWTH IN 3 DAYS Resulted 04/13/17 03:25 Stool Stool Cryptosporidium Exam Pending Resulted 04/13/17 03:25 Stool Stool Stool Pus (CHRISTIANO) - Final RARE WBC Resulted 04/13/17 03:25 Stool Stool Giardia Antigen (CHRISTIANO) Pending Resulted 04/11/17 20:00 Sputum Endotracheal Gram Stain - Final Complete 04/11/17 20:00 Sputum Culture - Final Escherichia Coli Complete 04/10/17 15:55 Urine Catheterized Urine Legionella Antigen - Final PRESUMPTIVE NEGATIVE FOR LEGIONELLA P... Complete 04/10/17 15:55 Urine Catheterized Urine Streptococcus pneumoniae Antigen (M - Final PRESUMPTIVE NEGATIVE FOR STREPTOCOCCU... Complete Imaging Last Impressions Abdomen X-Ray 04/14/17 0000 Signed Impressions: Service Date/Time: Friday, April 14, 2017 13:34 - CONCLUSION: 1. Multiple loops of air-filled, dilated small bowel are present suggesting ileus. Kerwin Martinez MD Chest X-Ray 04/13/17 0600 Signed Impressions: Service Date/Time: Thursday, April 13, 2017 04:03 - CONCLUSION: Worsening bilateral pulmonary infiltrates. Anthony Duncan Jr., MD Small Bowel X-Ray 04/12/17 0000 Signed Impressions: Service Date/Time: Wednesday, April 12, 2017 14:36 - CONCLUSION: 1. Mild small bowel dilatation without obstruction. Contrast reaches distal colon by 4 hours. Abrahan Gómez MD Head CT 04/10/17 1648 Signed Impressions: Service Date/Time: Monday, April 10, 2017 17:11 - CONCLUSION: 1. No acute intracranial abnormality or significant interval change. Daniel Carvajal MD Abdomen/Pelvis CT 04/10/17 1625 Signed Impressions: Service Date/Time: Monday, April 10, 2017 17:15 - CONCLUSION: Mild fluid and gaseous distention of small bowel, mainly the proximal small bowel. No acute focal findings in the abdomen or pelvis on noncontrast evaluation. King Shi MD Chest CT 04/10/17 0000 Signed Impressions: Service Date/Time: Monday, April 10, 2017 17:15 - CONCLUSION: 1. ETT just above the [place]. 2. Dense right lower lobe airspace consolidation with diffuse patchy nodular airspace disease throughout the remainder of the right lung and at the extreme left lung base. Findings are most consistent with pneumonia, atypical infection or aspiration. 3. No significant effusion or pneumothorax. Daniel Carvajal MD Physical Exam HEENT: Normocephalic; atraumatic; no jaundice CHEST: Resp even/unlabored. OETT to vent. Diminished bsaes. CARDIAC: RRR ABDOMEN: Soft, mildly distended, bowel sounds present, OGT clamped for sbft EXTREMITIES: Gen. edema : 3 way catheter SKIN: Skin cool, MUS[employer] LIBR[employer] ASSISTANT: Sedated on vent. (Keila Dimas) Assessment and Plan Plan ASSESSMENT: - Ileus, mild. Pt came to the ER with nausea/vomiting, respiratory distress, AMS. CT scan abdomen and pelvis (04/10/17)----> Mild fluid and gaseous distention of small bowel, mainly the proximal small bowel. No acute focal findings in the abdomen or pelvis on noncontrast evaluation. KUB (04/12/17)----> Unchanged dilatation of the small bowel. OGT clamped for SBFT- in process. Reglan. Miralax. Senna. No BM. Stool studies ordered, but she has not had a bowel movement. - Acute respiratory failure, PNA, COPD, LAXMI. Vent per [facility] Zosyn, Azithromycin. - Sepsis with leukocytosis, UTI, PNA. Rpt. BCx pending no growth one day, urine neg for legionella/streptococcus, ur cx GNR, BCx GPC. Sputum GNR. WBC 24.1. Zosyn, Azithromycin. - Hematuria. following, ? traumatic santoyo placement. Plan is to start CBI. Plan for cystoscopy if hematuria continues. - Anemia. S/P EGD (02/26/17)---> the esophagus was otherwise normal, multiple small ulcers were found in the prepyloric region of the stomach and at the pylorus; biopsies were taken. Food residue in the gastric fundus, cardia, and gastric body, normal duodenal mucosa in the bulb and second portion of the duodenum, retroflexion was performed and was normal. Pathology revealed moderate chronic active gastritis with features of ulceration and associated reactive epithelial changes negative for H. pylori. S/P 2 units prbc. 9.5/28.5. - CVA, Paroxysmal atrial fibrillation. - HIRAM with electrolyte abnormalities, Creat 2.65. - DM, Hyperlipidemia per attending 04/14/17-- Abd X-ray today showed multiple loops of air filled, dilated small bowel suggesting ileus Stools negative for C-diff. had SBFT as above hypokalemia- replaced by attending PLAN: - Okay to start trickle feeding, this was discussed with nurse - Cont. Protonix - Cont. Reglan 5mg IV q8h - Cont. Miralax 17gram per OGT daily - Supportive care - Further recommendations to follow based on results of above - Pt seen and examined by Dr. Bronson and myself and this note is written on his behalf (Keila Dimas) Kelia Dimas Apr 14, 2017 16:41 Helen Bronson MD Apr 14, 2017 19:29
[2017-04-14] MEDS: PANTOPRAZOLE SODIUM 40 MG VIAL IV PUSH SCH (17:14)
[2017-04-14] MEDS: AZITHROMYCIN INJ 500 MG in SODIUM CHLOR 0.9% 250 ML INJ 250 ML IV SCH (17:18)
[2017-04-14] MEDS: ARTIFICIAL TEARS OPTH SOLN 15 ML BTL EACH EYE SCH (20:23)
[2017-04-15] VITALS (24 sets, daily range): BP systolic 97–136; BP diastolic 43–65; PULSE 58–65; RESP 6–24; TEMP 97.3–97.7; O2SAT 93–98
[2017-04-15] MEDS: PIPERACIL-TAZO 2.25 GM PREMIX 50 ML IV SCH ×4 (01:36→17:06)
[2017-04-15] MEDS: PROPOFOL 1000 MG/100 ML IV PRN ×3 (03:28→22:59)
[2017-04-15] MEDS: INSULIN NovoLIN REGULAR SUPPLEMENTAL SCALE SQ SCH ×6 (03:35→20:00)
[2017-04-15] MEDS: SODIUM CHLOR 0.9% 1000 ML INJ 1,000 ML IV SCH ×2 (03:40→14:10)
[2017-04-15] MEDS: CHLORHEXIDINE GLUCONATE 2 % 1 PACK (2 CLOTHS) TOP SCH (03:40)
[2017-04-15 04:06] LABS: AUTOMATED NEUTROPHIL # 24.7 TH/MM3 (1.8-7.7); BASOPHIL % 0.1 % (0.0-2.0); EOSINOPHIL # 0.2 TH/MM3 (0-0.4); EOSINOPHIL % 0.6 % (0.0-4.0); HEMATOCRIT 24.5 % (35.0-46.0); LYMPH % 11.1 % (9.0-44.0); LYMPHOCYTE # 3.2 TH/MM3 (1.0-4.8); MEAN CELL VOLUME 85.5 FL (80.0-100.0); MEAN CORPUSCULAR HEMOGLOBIN 27.5 PG (27.0-34.0); MEAN CORPUSCULAR HGB CONC 32.2 % (32.0-36.0); MONO % 1.8 % (0.0-8.0); NEUT % 86.4 % (16.0-70.0); PLATELET COUNT 328 TH/MM3 (150-450); RED BLOOD COUNT 2.87 MIL/MM3 (4.00-5.30); RED CELL DISTRIBUTION WIDTH 19.9 % (11.6-17.2); WHITE BLOOD COUNT 28.5 TH/MM3 (4.0-11.0)
[2017-04-15 04:07] LABS: HEMO FLAGS AUTO DIFF
[2017-04-15 04:42] LABS: BICARBONATE 22.6 MEQ/L (21.0-32.0); MAGNESIUM 2.2 MG/DL (1.5-2.5); POTASSIUM 3.5 MEQ/L (3.5-5.1); TOTAL BILIRUBIN ADULT 0.9 MG/DL (0.2-1.0)
[2017-04-15 05:09] LABS: BANDS 1 % (0-6); EOSINOPHILS 1 % (0-4); METAMYELOCYTES 1 % (0-1); NEUTROPHIL # MANUAL DIFF 25.7 TH/MM3 (1.8-7.7); POLYS (SEG NEUTROPHILS) 86 % (16-70); PROMYELOCYTES 2 % (0-0); SCAN/DIFF FINAL DIFF MANUAL; WBC DIFF SAMPLE 100
[2017-04-15 05:10] LABS: PLATELET ESTIMATE SMEAR NORMAL (NORMAL); TARGET CELLS 1+ (NORMAL); TOXIC GRANULATION 1+ (NORMAL)
[2017-04-15 05:12] LABS: PLATELET MORPHOLOGY NORMAL (NORMAL)
[2017-04-15] MEDS: ARTIFICIAL TEARS OPTH SOLN 15 ML BTL EACH EYE SCH ×3 (05:30→23:01)
[2017-04-15] MEDS: METOCLOPRAMIDE HCL 10 MG/2 ML VIAL IV PUSH SCH ×4 (05:31→22:59)
[2017-04-15] MEDS: INSULIN DETEMIR 100 UNITS/ML VIAL SQ SCH ×2 (08:50→21:00)
[2017-04-15] MEDS: POLYETHYLENE GLYCOL 17 GM PKG PO SCH (08:50)
[2017-04-15] MEDS: SENNOSIDES SYRUP 8.8 MG/5 ML CUP PO SCH (08:50)
[2017-04-15] MEDS: LANTHANUM CARBONATE 500 MG CHEWABLE TABLET CHEW SCH ×3 (08:50→17:06)
[2017-04-15] MEDS: DOCUSATE SODIUM 50 MG/SENNA 8.6 MG TAB PO SCH ×2 (08:50→22:59)
[2017-04-15] MEDS: CALCIUM/VITAMIN D 250 MG/125 U TAB PO SCH ×2 (08:50→23:00)
--- NOTE | 2017-04-15 11:24 | HHI.NPPN ---
Subjective History of Present Illness 72-year-old female known to me from her last admission when she was admitted in October of this year with past medical history of hypertension, diabetes mellitus, chronic kidney disease, history of cerebrovascular accident, hyperlipidemia, sleep apnea, atrial fibrillation, was admitted with altered mental status. I was called to see the patient because of elevated BUN and creatinine. I saw her when she was here in October and at that time her creatinine was as high as 2.8 and then it improved to around 1.4-1.6, which is probably her baseline. Additional Remarks Patient remain on the vent, sedated,clinically same. Review of Systems General General Remarks Intubated and sedated. Objective Data Data Vital Signs Date Time Temp Pulse Resp B/P (MAP) Pulse Ox O2 Delivery O2 Flow Rate FiO2 04/15/17 11:13 98 40 04/15/17 08:12 97 40 04/15/17 04:00 97.3 63 14 124/49 (74) 96 04/15/17 04:00 40 04/15/17 03:49 94 40 04/15/17 00:00 40 04/15/17 00:00 97.6 65 14 133/55 (81) 95 04/14/17 23:39 95 40 04/14/17 21:17 68 110/48 04/14/17 20:38 97 40 04/14/17 20:00 97.5 67 14 130/56 (80) 97 Automatic Cuff 04/14/17 20:00 40 04/14/17 18:00 68 04/14/17 17:16 71 127/51 04/14/17 16:00 40 04/14/17 16:00 97.7 71 14 107/57 (74) 95 119/53 (75) 04/14/17 16:00 69 04/14/17 15:38 97 40 04/14/17 14:00 80 04/14/17 13:17 72 106/53 04/14/17 12:00 98.9 72 16 109/62 (78) 95 129/52 (77) 04/14/17 12:00 40 04/14/17 12:00 72 04/14/17 11:56 95 40 -: 04/15/17 0400 04/15/17 0400 Physical Exam General Appearance Remarks Intubated and sedated. Eyes Eye Exam: Pupils Equal Throat Throat Exam: Oral Mucosa [place] & Moist Neck Neck Exam: Neck Supple Pulmonary Resp Exam: Rhonchi, Decreased Bases, Diminished Breath Sounds, Poor Inspiratory Effort Cardiology CV Exam: Regular, Normal Sinus Rhythm Gastrointestinal/Abdomen GI Exam: Soft, Non-Tender, Bowel Sounds Present, Distended Extremeties Extremities Exam: Moderate Edema, Pitting Edema Neurologic Neuro Exam: Sedated Assessment/Plan Assessment Summary: HIRAM/Acute Renal Failure, Hypotension, CKD Stage III Problem List: (1) Dyspnea ICD Codes: R06.00 - Dyspnea, unspecified Status: Acute (2) Diabetes mellitus ICD Codes: E11.9 - Type 2 diabetes mellitus without complications Status: Chronic (3) Leukocytosis ICD Codes: D72.829 - Elevated white blood cell count, unspecified Status: Resolved (4) Encephalopathy ICD Codes: G93.40 - Encephalopathy, unspecified Status: Acute (5) Pneumonia ICD Codes: J18.9 - Pneumonia, unspecified organism Status: Acute (6) Acute respiratory failure ICD Codes: J96.00 - Acute respiratory failure, unspecified whether with hypoxia or hypercapnia Status: Acute (7) Anemia ICD Codes: D64.9 - Anemia, unspecified Status: Acute (8) Sepsis ICD Codes: A41.9 - Sepsis, unspecified organism Status: Resolved (9) UTI (urinary tract infection) ICD Codes: N39.0 - Urinary tract infection, site not specified Status: Resolved (10) Acute renal failure ICD Codes: N17.9 - Acute kidney failure, unspecified Status: Acute (11) Acute worsening of stage 3 chronic kidney disease ICD Codes: N18.3 - Chronic kidney disease, stage 3 (moderate) Status: Acute Plan Patient has chronic kidney disease. The baseline Creatinine is 1.7-1.8. Now develop HIRAM, possibly related to Hypotension and ATN. Has sepsis and UTI, BP is low, on pressors. Has hematuria, and the urine is getting more clear.. Creatinine is improving , now 1.5, K is better, 3.5. Both Mg. and K replaced. Continue antibiotics.Avoid Nephrotoxins. Follow the Vanco. level. Continue IVF and antibiotics. Follow the urine out put and BMP. Problem Qualifiers (1) Pneumonia: Qualified Codes: J18.9 - Pneumonia, unspecified organism (2) Acute respiratory failure: Qualified Codes: J96.00 - Acute respiratory failure, unspecified whether with hypoxia or hypercapnia (3) Anemia: Qualified Codes: D64.9 - Anemia, unspecified (4) Sepsis: Qualified Codes: A41.9 - Sepsis, unspecified organism (5) UTI (urinary tract infection): Qualified Codes: N39.0 - Urinary tract infection, site not specified (6) Acute renal failure: Qualified Codes: N17.9 - Acute kidney failure, unspecified Bree Dill MD Apr 15, 2017 11:24
[2017-04-15] MEDS: VASOPRESSIN INJ 40 UNITS in DEXTROSE 5% IN WATER 100ML INJ 98 ML IV SCH ×2 (12:48)
--- NOTE | 2017-04-15 13:04 | ECHRPT ---
Indication: r/o vegetations CONCLUSIONS The left ventricular systolic function is normal with an estimated ejection fraction in the range of 55-60%. Normal left ventricular size. [id number] mitral valve regurgitation. No aortic valve regurgitation. There is mild tricuspid valve regurgitation. BP: / HR: Rhythm: MEASUREMENTS (Male / Female) Normal Values Technical Quality:Technically difficult study 2D ECHO LV Diastolic Diameter PLAX 3.7 cm 4.2 - 5.9 / 3.9 - 5.3 cm LV Systolic Diameter PLAX 2.8 cm IVS Diastolic Thickness 1.2 cm 0.6 - 1.0 / 0.6 - 0.9 cm LVPW Diastolic Thickness 1.1 cm 0.6 - 1.0 / 0.6 - 0.9 cm LV Relative Wall Thickness 0.6 RV Internal Dim ED PLAX 2.3 cm DOPPLER MV Area PHT 1.8 cm TR Peak Velocity 328.0 cm/s TR Peak Gradient 43.0 mmHg Right Atrial Pressure 10.0 mmHg Pulmonary Artery Systolic Pressu 53.0 mmHg Right Ventricular Systolic Press 53.0 mmHg FINDINGS LEFT VENTRICLE The left ventricular systolic function is normal with an estimated ejection fraction in the range of 55-60%. Normal left ventricular size. MITRAL VALVE Lpbep-ab-zrlk mitral valve regurgitation. AORTIC VALVE Trileaflet aortic valve. No aortic valve regurgitation. TRICUSPID VALVE There is mild tricuspid valve regurgitation. Structurally normal tricuspid valve. Yusuf Shepherd MD, FACC (Electronically Signed) Final Date:15 April 2017 13:04
[2017-04-15] MEDS: VANCOMYCIN INJ 1,250 MG in SODIUM CHLOR 0.9% 250 ML INJ 250 ML IV SCH (14:09)
--- NOTE | 2017-04-15 15:14 | HHI.GIFU ---
Subjective Remarks Resting in bed. Lightly sedated on vent. Denies abdominal pain. TF turned off while she was placed on CPAP. Nurse reports that she did not tolerate this and will likely go back on rate/tf. + BM. (Esther Wells) Objective Vitals I&O Vital Signs Date Time Temp Pulse Resp B/P (MAP) Pulse Ox O2 Delivery O2 Flow Rate FiO2 04/15/17 14:00 61 04/15/17 13:00 65 14 115/49 (71) 96 04/15/17 12:48 61 107/43 04/15/17 12:00 60 04/15/17 12:00 40 04/15/17 12:00 97.6 60 9 115/51 (72) 96 04/15/17 11:13 98 40 04/15/17 11:00 60 6 117/49 (71) 97 04/15/17 10:00 60 04/15/17 10:00 60 6 114/50 (71) 97 04/15/17 09:00 60 9 112/46 (68) 96 04/15/17 08:12 97 40 04/15/17 08:00 97.7 61 9 106/47 (66) 93 04/15/17 08:00 61 04/15/17 08:00 40 04/15/17 07:01 61 11 114/46 (68) 98 04/15/17 07:00 62 8 121/63 (82) 98 04/15/17 04:00 97.3 63 14 124/49 (74) 96 04/15/17 04:00 40 04/15/17 03:49 94 40 04/15/17 00:00 40 04/15/17 00:00 97.6 65 14 133/55 (81) 95 04/14/17 23:39 95 40 04/14/17 21:17 68 110/48 04/14/17 20:38 97 40 04/14/17 20:00 97.5 67 14 130/56 (80) 97 Automatic Cuff 04/14/17 20:00 40 04/14/17 18:00 68 04/14/17 17:16 71 127/51 04/14/17 16:00 40 04/14/17 16:00 97.7 71 14 107/57 (74) 95 119/53 (75) 04/14/17 16:00 69 04/14/17 15:38 97 40 I/O 04/14/17 04/14/17 04/14/17 04/15/17 04/15/17 04/15/17 07:00 15:00 23:00 07:00 15:00 23:00 Intake Total 1971 ml 400 ml 467 ml 1303 ml 847 ml Output Total 975 ml 900 ml 1400 ml Balance 996 ml 400 ml -433 ml -97 ml 847 ml Intake IV Total 1971 ml 400 ml 467 ml 1150 ml 847 ml Tube Feeding 93 ml Tube Irrigant 60 ml Output Urine Total 875 ml 900 ml 1100 ml Stool Total 100 ml 300 ml Laboratory Laboratory Tests Test 04/14/17 16:30 04/14/17 16:50 04/15/17 04:00 Potassium Level 3.8 3.5 Urine Eosinophils 0-2 Urine Random Creatinine 15.6 Urine Random Sodium 93 White Blood Count 28.5 Red Blood Count 2.87 Hemoglobin 7.9 Hematocrit 24.5 Mean Corpuscular Volume 85.5 Mean Corpuscular Hemoglobin 27.5 Mean Corpuscular Hemoglobin Concent 32.2 Red Cell Distribution Width 19.9 Platelet Count 328 Mean Platelet Volume 8.5 Neutrophils (%) (Auto) 86.4 Lymphocytes (%) (Auto) 11.1 Monocytes (%) (Auto) 1.8 Eosinophils (%) (Auto) 0.6 Basophils (%) (Auto) 0.1 Neutrophils # (Auto) 24.7 Lymphocytes # (Auto) 3.2 Monocytes # (Auto) 0.5 Eosinophils # (Auto) 0.2 Basophils # (Auto) 0.0 CBC Comment AUTO DIFF Differential Total Cells Counted 100 Neutrophils % (Manual) 86 Band Neutrophils % 1 Lymphocytes % 7 Monocytes % 2 Eosinophils % 1 Neutrophils # (Manual) 25.7 Metamyelocytes 1 Promyelocytes 2 Differential Comment FINAL DIFF MANUAL Toxic Granulation 1+ Platelet Estimate NORMAL Platelet Morphology Comment NORMAL Target Cells 1+ Blood Urea Nitrogen 49 Creatinine 1.56 Random Glucose 155 Total Protein 5.6 Albumin 1.6 Calcium Level 7.2 Phosphorus Level 4.2 Magnesium Level 2.2 Alkaline Phosphatase 301 Aspartate Amino Transf (AST/SGOT) 27 Alanine Aminotransferase (ALT/SGPT) 11 Total Bilirubin 0.9 Sodium Level 133 Chloride Level 99 Carbon Dioxide Level 22.6 Anion Gap 11 Estimat Glomerular Filtration Rate 32 Protein Corrected Calcium 8.0 Date/Time Source Procedure Growth Status 04/11/17 11:18 Blood Peripheral Aerobic Blood Culture - Preliminary NO GROWTH IN 4 DAYS Resulted 04/11/17 11:18 Blood Peripheral Anaerobic Blood Culture - Preliminary NO GROWTH IN 4 DAYS Resulted 04/13/17 03:25 Stool Stool Cryptosporidium Exam - Final NEGATIVE - NO CRYPTOSPORIDIUM ANTIGEN... Complete 04/13/17 03:25 Stool Stool Stool Pus (CHRISTIANO) - Final RARE WBC Complete 04/13/17 03:25 Stool Stool Giardia Antigen (CHRISTIANO) - Final NEGATIVE - NO GIARDIA ANTIGEN DETECTE... Complete 04/11/17 20:00 Sputum Endotracheal Gram Stain - Final Complete 04/11/17 20:00 Sputum Culture - Final Escherichia Coli Complete 04/10/17 15:55 Urine Catheterized Urine Legionella Antigen - Final PRESUMPTIVE NEGATIVE FOR LEGIONELLA P... Complete 04/10/17 15:55 Urine Catheterized Urine Streptococcus pneumoniae Antigen (M - Final PRESUMPTIVE NEGATIVE FOR STREPTOCOCCU... Complete Imaging Last Impressions Abdomen X-Ray 04/14/17 0000 Signed Impressions: Service Date/Time: Friday, April 14, 2017 13:34 - CONCLUSION: 1. Multiple loops of air-filled, dilated small bowel are present suggesting ileus. Kerwin Martinez MD Chest X-Ray 04/13/17 0600 Signed Impressions: Service Date/Time: Thursday, April 13, 2017 04:03 - CONCLUSION: Worsening bilateral pulmonary infiltrates. Anthony Duncan Jr., MD Small Bowel X-Ray 04/12/17 0000 Signed Impressions: Service Date/Time: Wednesday, April 12, 2017 14:36 - CONCLUSION: 1. Mild small bowel dilatation without obstruction. Contrast reaches distal colon by 4 hours. Abrahan Gómez MD Head CT 04/10/17 1648 Signed Impressions: Service Date/Time: Monday, April 10, 2017 17:11 - CONCLUSION: 1. No acute intracranial abnormality or significant interval change. Daniel Carvajal MD Abdomen/Pelvis CT 04/10/17 1625 Signed Impressions: Service Date/Time: Monday, April 10, 2017 17:15 - CONCLUSION: Mild fluid and gaseous distention of small bowel, mainly the proximal small bowel. No acute focal findings in the abdomen or pelvis on noncontrast evaluation. King Shi MD Chest CT 04/10/17 0000 Signed Impressions: Service Date/Time: Monday, April 10, 2017 17:15 - CONCLUSION: 1. ETT just above the kimberlyn. 2. Dense right lower lobe airspace consolidation with diffuse patchy nodular airspace disease throughout the remainder of the right lung and at the extreme left lung base. Findings are most consistent with pneumonia, atypical infection or aspiration. 3. No significant effusion or pneumothorax. Daniel Carvajal MD Physical Exam HEENT: Normocephalic; atraumatic; no jaundice CHEST: Resp even/unlabored. OETT to vent. Diminished bases. CARDIAC: RRR ABDOMEN: Soft, mildly distended, bowel sounds present, OGT clamped for possible extubation. EXTREMITIES: Gen. edema SKIN: Skin warm/dry MERCHANDISING LEAD: Sedated on vent.- lightly, nods head appropriately (Esther Wells) Assessment and Plan Plan ASSESSMENT: - Ileus, mild. Pt came to the ER with nausea/vomiting, respiratory distress, AMS. CT scan abdomen and pelvis (04/10/17)----> Mild fluid and gaseous distention of small bowel, mainly the proximal small bowel. No acute focal findings in the abdomen or pelvis on noncontrast evaluation. SBFT (04/12/17)---> Mild small bowel dilatation without obstruction. Contrast reaches distal colon by 4 hours. KUB (04/14/17)----> Multiple loops of air-filled, dilated small bowel are present suggesting ileus. No BM. CDiff negative. Cryptosporidium negative, giardia negative, WBC rare , Cx negative. Reglan. Miralax. Senna. - Acute respiratory failure, PNA, COPD, LAXMI. Vent per CCM Abx per CCM - Sepsis with leukocytosis, UTI, PNA. Rpt. BCx pending no growth one day, urine neg for legionella/streptococcus, ur cx GNR, BCx GPC. Sputum E. Coli. WBC 28.5. Vanco, Zosyn - Hematuria. following, ? traumatic santoyo placement. Plan is to start CBI. Plan for cystoscopy if hematuria continues. - Anemia. S/P EGD (02/26/17)---> the esophagus was otherwise normal, multiple small ulcers were found in the prepyloric region of the stomach and at the pylorus; biopsies were taken. Food residue in the gastric fundus, cardia, and gastric body, normal duodenal mucosa in the bulb and second portion of the duodenum, retroflexion was performed and was normal. Pathology revealed moderate chronic active gastritis with features of ulceration and associated reactive epithelial changes negative for H. pylori. S/P 2 units prbc. 7.9/24.5. - CVA, Paroxysmal atrial fibrillation. - HIRAM with electrolyte abnormalities, Creat 1.56 - DM, Hyperlipidemia per attending 04/14/17-- Abd X-ray today showed multiple loops of air filled, dilated small bowel suggesting ileus Stools negative for C-diff. had SBFT as above hypokalemia- replaced by attending PLAN: - TF as tolerated (Nepro GR 40cc) - Cont. Protonix - Cont. Reglan 5mg IV q8h - Cont. Miralax 17gram per OGT daily - Supportive care - Further recommendations to follow based on results of above - Pt seen and examined by Dr. Maciel and myself and this note is written on his behalf (Esther Wells) Physician Comments Seen and examined with PROMOTIONS PRODUCER< illeus, start TF and increase slowly as tolerated. (Tung Maciel MD) Esther Wells Apr 15, 2017 15:14 Tung Maciel MD Apr 15, 2017 15:57
--- NOTE | 2017-04-15 16:20 | RADRPT ---
EXAM DATE/TIME: 04/15/2017 15:10 [facility] COMPARISON: CHEST SINGLE AP, April 13, 2017, 4:03. ABDOMEN KUB ONLY, April 14, 2017, 13:34. INDICATIONS : Respiratory failure MEDICAL HISTORY : Hypertension. Diabetes mellitus type II. Hernia SURGICAL HISTORY : Appendectomy. Cholecystectomy. ENCOUNTER: Subsequent ACUITY: 4 - 6 days PAIN SCORE: Non-responsive. LOCATION: Bilateral chest FINDINGS: The ET tube is in good position. A nasogastric tube and central line are in satisfactory position. There are small bilateral effusions larger on the right than the left. There is diffuse bilateral inf iltrate which is similar to previous dated 04/13/17. The bony structures are intact. CONCLUSION: 1. Support equipment in satisfactory position. 2. Continued bilateral infiltrates unchanged from previous. Kerwin Martinez MD on April 15, 2017 at 16:17 Board Certified Radiologist. This report was verified electronically.
--- NOTE | 2017-04-15 16:21 | HHI.PR ---
Addendum to Inpatient Note Additional Information pt seen around 1600 full note to follow dw RN On low dose pressors afebrile on vent + diarrhea , + WBC up to 28 K On exam urine is clearing up fontenot abx to Siddharthan Vicki Ying MD Apr 15, 2017 16:21
[2017-04-15] MEDS: PANTOPRAZOLE SODIUM 40 MG VIAL IV PUSH SCH (16:23)
[2017-04-15] MEDS: NOREPINEPHRINE 4 MG/D5W 250 ML IV PRN (16:24)
[2017-04-15] MEDS: AMINOCAPROIC ACID INJ 3,000 MG in SODIUM CHLORIDE 0.9% IRR BAG 3,000 ML IRRIGATION SCH (17:06)
--- NOTE | 2017-04-15 17:11 | RADRPT ---
EXAM DATE/TIME: 04/15/2017 15:15 [facility] COMPARISON: ABDOMEN KUB ONLY, April 14, 2017, 13:34. INDICATIONS : Ileus. MEDICAL HISTORY : Hypertension. Diabetes mellitus type II. Hernia SURGICAL HISTORY : Appendectomy. Cholecystectomy. ENCOUNTER: Subsequent ACUITY: 4 - 6 days PAIN SCORE: Non-responsive. LOCATION: Abdomen. FINDINGS: Multiple nodular opacities are seen in both lung bases. Gaseous distension of proximal small bowel w hen compared to distal. Nasogastric tube is across the GE junction with a decompressed stomach. Minimal radiographic contrast is present in the sigmoid colon. CONCLUSION: 1. Gaseous distension predominantly small bowel as described above. 2. Nasogastric tube does have the stomach decompressed. Everardo Martinez MD FACR on April 15, 2017 at 16:52 Board Certified Radiologist. This report was verified electronically.
--- NOTE | 2017-04-15 18:28 | HHI.CCPN ---
Subjective Remarks/Hospital Course The patient is a 72-year-old female with multiple medical comorbidities which include hypertension, diabetes mellitus, hyperlipidemia, obstructive sleep apnea on C-PAP machine at home, COPD, CVA with residual left-sided hemiparesis who presented to [facility] ED with altered mental status and emesis. She was last seen normal yesterday. The patient was on non-rebreather mask initially, however, she was intubated with etomidate, succinylcholine and placed on mechanical ventilation. Also she was placed on Versed drip for sedation. ABG post intubation showed acute hypercapnic respiratory failure with a pH of 7.36, CO2 51, pAO2 322, bicarb 28 and saturation 97%. Her laboratory data significant for acute renal failure with a BUN of 91, creatinine 3.65. Lactic acid was 1.9. Also she was found to have leukocytosis with a WBC of 17.1 associated with bandemia of 26. Her urinalysis was positive for leukocyte esterase, moderate blood and many bacteria. Chest x-ray post intubation showed ET tube above the kimberlyn, questionable elevation of right hemidiaphragm with subsegmental atelectasis. In the ER she is currently receiving a second liter of IV fluids and received cefepime and vancomycin. A Cuellar was placed in the ER and post placement the patient noted to have hematuria. to her altered mental status she was scheduled to undergo CT scan of the brain without contrast. Of note the patient was on Eliquis for a history of paroxysmal atrial fibrillation. Also a CT scan of the thorax, abdomen, pelvis without contrast were ordered by the ED physician. Most of the history was obtained from reviewing medical records as the patient is intubated and no family members present at the bedside 04/11 Patient became hypotensive overnight started on Levophed 15 mics and Vasopressin. Sedated with fentanyl, Diprivan and intubated. Afebrile. BC from yesterday GPC. 04/12: Currently afebrile. Currently on norepinephrine at 6 mcg/m and vasopressin 0.04 units per minute sedated on the ventilator and propofol and fentanyl drips. Currently undergoing small bowel follow-through. 04/13: Currently on propofol at 9 mcg/kg per minute. Off fentanyl drip. Small bowel follow-through revealed transition to colon at 4 hours. No signs of bowel obstruction. Small bowel is mildly dilatated. Creatinine currently 2.1. Edematous. Vasopressor requirements decreasing. Subjective 04/14: Afebrile. Currently on propofol; at 10 g per kilogram per minute. Positive BM. Creatinine Is currently at baseline 1.8. Abdominal x-ray pending 04/15 Remains intubated sedated with propofol. Intermittently follows commands. KUB shows gaseous distention. WBC increased to 28.5 creatinine improving Objective Vital Signs Date Time Temp Pulse Resp B/P (MAP) Pulse Ox O2 Delivery O2 Flow Rate FiO2 04/15/17 16:30 58 10 97/43 (61) 94 04/15/17 16:00 97.6 04/15/17 16:00 40 Intake and Output 04/15/17 04/15/17 04/16/17 08:00 16:00 00:00 Intake Total 1303 ml 1109.5 ml 128 ml Output Total 1400 ml Balance -97 ml 1109.5 ml 128 ml Result Diagram: 04/15/17 0400 04/15/17 0400 Other Results Microbiology Date/Time Source Procedure Growth Status 04/13/17 03:25 Stool Stool Cryptosporidium Exam - Final NEGATIVE - NO CRYPTOSPORIDIUM ANTIGEN... Complete 04/13/17 03:25 Stool Stool Stool Pus (CHRISTIANO) - Final RARE WBC Complete 04/13/17 03:25 Stool Stool Giardia Antigen (CHRISTIANO) - Final NEGATIVE - NO GIARDIA ANTIGEN DETECTE... Complete 04/13/17 03:25 Stool Stool - Final NO ENTERIC PATHOGENS DETECTED BY PCR... Complete Imaging Last Impressions Chest X-Ray 04/13/17 0600 Signed Impressions: Service Date/Time: Thursday, April 13, 2017 04:03 - CONCLUSION: Worsening bilateral pulmonary infiltrates. Anthony Duncan Jr., MD Abdomen X-Ray 04/13/17 0600 Signed Impressions: Service Date/Time: Thursday, April 13, 2017 04:10 - CONCLUSION: Unchanged dilated small bowel. Oral contrast reaches the rectal vault. Anthony Duncan Jr., MD Small Bowel X-Ray 04/12/17 0000 Signed Impressions: Service Date/Time: Wednesday, April 12, 2017 14:36 - CONCLUSION: 1. Mild small bowel dilatation without obstruction. Contrast reaches distal colon by 4 hours. Abrahan Gómez MD Head CT 04/10/17 1648 Signed Impressions: Service Date/Time: Monday, April 10, 2017 17:11 - CONCLUSION: 1. No acute intracranial abnormality or significant interval change. Daniel Carvajal MD Abdomen/Pelvis CT 04/10/17 1625 Signed Impressions: Service Date/Time: Monday, April 10, 2017 17:15 - CONCLUSION: Mild fluid and gaseous distention of small bowel, mainly the proximal small bowel. No acute focal findings in the abdomen or pelvis on noncontrast evaluation. King Shi MD Chest CT 04/10/17 0000 Signed Impressions: Service Date/Time: Monday, April 10, 2017 17:15 - CONCLUSION: 1. ETT just above the kimberlyn. 2. Dense right lower lobe airspace consolidation with diffuse patchy nodular airspace disease throughout the remainder of the right lung and at the extreme left lung base. Findings are most consistent with pneumonia, atypical infection or aspiration. 3. No significant effusion or pneumothorax. Daniel Carvajal MD Objective Remarks GENERAL: Patient is 72 yo critically ill orotracheally intubated SKIN: Warm and dry. Decubitus ulcer bilateral gluteal. Stage II. HEAD: Normocephalic. EYES: No scleral icterus. No injection or drainage. NECK: Supple, trachea midline. No JVD or lymphadenopathy. CARDIOVASCULAR: Regular rate and rhythm currently. S1, S2 no S4. Without murmurs, gallops, or rubs. RESPIRATORY: Breath sounds equal bilaterally. No accessory muscle use. GASTROINTESTINAL: Abdomen soft, non-tender, obese. No bowel sounds are appreciated : Cuellar in place with resolved Hematuria. MUSCULOSKELETAL: +2 edema. Neuro: Arousable on the ventilator. Opens eyes to stimulation. Positive gag. Positive corneal reflex. Moves all 4 extremities spontaneously and occasionally to command Date of Insertion: Apr 10, 2017 Line: Central Venous Catheter Side: Right Location: Subclavian A/P Assessment and Plan Neuro/Psych: History of CVA with left-sided weakness Patient is currently on propofol at 20 g per minute for sedation/analgesia while intubated Fentanyl drip currently on hold due to small bowel dilatation Goal of RA SS -2 Daily sedation vacation when appropriate. 04/10 -CT brain without contrast: No acute abnormalities. Pulm : Acute respiratory failure secondary to pneumonia/E Coli LAXMI COPD Continue with vent support and maintain sats above 92%. Ventilator bundle PRVC 14/500/07/12/40, Daily SBT Albuterol/ipratropium aerosols every 6 hours with albuterol aerosols every 2 hours as needed for dyspnea Chest x-ray revealed bilateral persistent infiltrates CT chest: Dense right lower lobe airspace consolidation with diffuse patchy nodular airspace disease throughout the remainder of the right lung and at the extreme left lung base. Findings are most consistent with pneumonia, CV: Septic shock History of paroxysmal atrial fibrillation currently normal sinus rhythm Hypertension Dyslipidemia Currently on norepinephrine at 2 mics grams per minute and vasopressin 0.04 units per minute goal keep MAP> 65 mmHg. On normal saline at 100 cc an hour Echo: EF 55-60%. Lactic acid: 1.9 Renal/FEN/: Hematuria Hypocalcemia Hypopotassemia Hyponatremia Hypophosphatemia Monitor renal function, I/O's and avoid nephrotoxins Renal and Urology consulted. Creatinine improving. On continuous bladder irrigations with Amicar. Hospital running out of Amicar so will use CBI per urology recommendations Change IVF- NS @100ml/hr 80 mEq KCl, 30 mmol K-Phos Recheck this afternoon GI: small bowel dilatation On Protonix 40 mg IV daily for GI prophylaxis. OGT to LIWS Small bowel follow-through - mild dilatation of small bowel however contrast does transition to: Within 4 hours. KUB - small bowel dilatation. Contrast rectum. Repeat 04/[address] adamant/pelvis evidence as well as revealed possible small bowel obstruction. For small bowel follow-through today GI following. Okay to initiate trickle feeds today. Nepro at 10 cc an hour ID: Enterococcus faecalis bacteremia Proteus UTI Escherichia coli pneumonia Continue with abx ( vanco, piperacillin/tazobactam, Azithromycin) Monitor for signs infections (fever and WBC) Pharmacy to adjust doses of abx per renal function. 04/10 blood cultures Enterococcus faecalis 3/4 bottles. Check BC x 2 sets 04/10. 04/11 blood cultures no growth 04/10 UA positive Proteus 04/11 - sputum -Escherichia coli Influenza screening, strep pneumonia and Legionella urinary Ag negative. Follow up on urine cx, check sputum cx Wound care is following for sacral wound ulcers. Endo: Diabetes mellitus continue SSI to medium scale with Accu-Chek q.4h for glycemic control. Continue detemir 7units BID Heme: Leukocytosis Normocytic anemia Monitor CBC and coags. MSK: Decubitus ulcer Santyl barrier cream twice a day. Free [facility] bed Wound care consulted GI prophylaxis with pantoprazole 40 mg daily and DVT prophylaxis with SCDs Not on chemical anticoagulation prophylaxis due to hematuria Lines: Right subclavian CVL, Right rad Art line placed 04/10 Patient is critically ill with septic shock, resp failure, ARF, pneumonia, UTI CCT 30 mins Elmo Malik MD Apr 15, 2017 18:28
--- NOTE | 2017-04-15 20:44 | HHI.IDPN ---
Subjective Subjective Remarks delayed entry pt seen around 1600 dw RN Pt is on low dose pressors, vasopressin anf levaphed ,, not tolerating further weaning she is afebrile remains on vent cont to have diarrhea , + WBC up to 28 K Antibiotics vanco zosyn Allergies: Coded Allergies: *MDRO Multi-Drug Resistant Organism (Verified Adverse Reaction, Unknown, ) MRSA PCR Screen POSITIVE - 10/24/2016 MRSA (sputum)-10/24/16 Objective . Vital Signs Date Time Temp Pulse Resp B/P (MAP) Pulse Ox O2 Delivery O2 Flow Rate FiO2 04/15/17 19:37 97 40 04/15/17 18:00 58 04/15/17 16:30 58 10 97/43 (61) 94 04/15/17 16:24 59 111/44 04/15/17 16:00 97.6 60 14 106/46 (66) 94 04/15/17 16:00 40 04/15/17 16:00 60 04/15/17 15:52 95 40 04/15/17 15:30 63 24 129/60 (83) 95 04/15/17 15:00 62 17 103/44 (63) 95 04/15/17 14:30 61 8 122/52 (75) 96 04/15/17 14:00 61 15 121/53 (75) 95 04/15/17 14:00 61 04/15/17 13:00 65 14 115/49 (71) 96 04/15/17 12:48 61 107/43 04/15/17 12:00 60 04/15/17 12:00 40 04/15/17 12:00 97.6 60 9 115/51 (72) 96 04/15/17 11:13 98 40 04/15/17 11:00 60 6 117/49 (71) 97 04/15/17 10:00 60 04/15/17 10:00 60 6 114/50 (71) 97 04/15/17 09:00 60 9 112/46 (68) 96 04/15/17 08:12 97 40 04/15/17 08:00 97.7 61 9 106/47 (66) 93 04/15/17 08:00 61 04/15/17 08:00 40 04/15/17 07:01 61 11 114/46 (68) 98 04/15/17 07:00 62 8 121/63 (82) 98 04/15/17 04:00 97.3 63 14 124/49 (74) 96 04/15/17 04:00 40 04/15/17 03:49 94 40 04/15/17 00:00 40 04/15/17 00:00 97.6 65 14 133/55 (81) 95 04/14/17 23:39 95 40 04/14/17 21:17 68 110/48 04/14/17 20:38 97 40 04/15/17 04/15/17 04/16/17 15:00 23:00 07:00 Intake Total 847 ml 2214.5 ml Output Total 4225 ml Balance 847 ml -2010.5 ml Intake IV Total 847 ml 2079.5 ml Tube Feeding 75 ml Tube Irrigant 60 ml Output Urine Total 3225 ml Stool Total 1000 ml . Laboratory Tests Test 04/14/17 05:30 04/15/17 04:00 White Blood Count 25.0 TH/MM3 28.5 TH/MM3 Red Blood Count 2.98 MIL/MM3 2.87 MIL/MM3 Hemoglobin 8.3 GM/DL 7.9 GM/DL Hematocrit 25.3 % 24.5 % Mean Corpuscular Volume 84.7 FL 85.5 FL Mean Corpuscular Hemoglobin 27.7 PG 27.5 PG Mean Corpuscular Hemoglobin Concent 32.7 % 32.2 % Red Cell Distribution Width 19.6 % 19.9 % Platelet Count 373 TH/MM3 328 TH/MM3 Mean Platelet Volume 8.4 FL 8.5 FL Neutrophils (%) (Auto) 86.9 % 86.4 % Lymphocytes (%) (Auto) 10.8 % 11.1 % Monocytes (%) (Auto) 1.5 % 1.8 % Eosinophils (%) (Auto) 0.6 % 0.6 % Basophils (%) (Auto) 0.2 % 0.1 % Neutrophils # (Auto) 21.7 TH/MM3 24.7 TH/MM3 Lymphocytes # (Auto) 2.7 TH/MM3 3.2 TH/MM3 Monocytes # (Auto) 0.4 TH/MM3 0.5 TH/MM3 Eosinophils # (Auto) 0.2 TH/MM3 0.2 TH/MM3 Basophils # (Auto) 0.1 TH/MM3 0.0 TH/MM3 CBC Comment AUTO DIFF AUTO DIFF Differential Total Cells Counted 100 100 Neutrophils % (Manual) 81 % 86 % Band Neutrophils % 7 % 1 % Lymphocytes % 10 % 7 % Neutrophils # (Manual) 22.5 TH/MM3 25.7 TH/MM3 Metamyelocytes 2 % 1 % Differential Comment FINAL DIFF MANUAL FINAL DIFF MANUAL Toxic Granulation 2+ 1+ Platelet Estimate NORMAL NORMAL Platelet Morphology Comment ENLARGED NORMAL Monocytes % 2 % Eosinophils % 1 % Promyelocytes 2 % Target Cells 1+ Laboratory Tests Test 04/14/17 05:30 04/14/17 16:30 04/15/17 04:00 Blood Urea Nitrogen 54 MG/DL 49 MG/DL Creatinine 1.70 MG/DL 1.56 MG/DL Random Glucose 120 MG/DL 155 MG/DL Total Protein 5.6 GM/DL 5.6 GM/DL Albumin 1.8 GM/DL 1.6 GM/DL Calcium Level 7.0 MG/DL 7.2 MG/DL Phosphorus Level 3.3 MG/DL 4.2 MG/DL Magnesium Level 1.6 MG/DL 2.2 MG/DL Alkaline Phosphatase 292 U/L 301 U/L Aspartate Amino Transf (AST/SGOT) 36 U/L 27 U/L Alanine Aminotransferase (ALT/SGPT) 9 U/L 11 U/L Total Bilirubin 0.8 MG/DL 0.9 MG/DL Sodium Level 134 MEQ/L 133 MEQ/L Potassium Level 2.8 MEQ/L 3.8 MEQ/L 3.5 MEQ/L Chloride Level 98 MEQ/L 99 MEQ/L Carbon Dioxide Level 22.1 MEQ/L 22.6 MEQ/L Anion Gap 14 MEQ/L 11 MEQ/L Estimat Glomerular Filtration Rate 29 ML/MIN 32 ML/MIN Lactic Acid Level 1.1 mmol/L Protein Corrected Calcium 7.8 MG/DL 8.0 MG/DL Total Creatine Kinase 14 U/L Microbiology Date/Time Source Procedure Growth Status 04/13/17 03:25 Stool Stool Cryptosporidium Exam - Final NEGATIVE - NO CRYPTOSPORIDIUM ANTIGEN... Complete 04/13/17 03:25 Stool Stool Stool Pus (CHRISTIANO) - Final RARE WBC Complete 04/13/17 03:25 Stool Stool Giardia Antigen (CHRISTIANO) - Final NEGATIVE - NO GIARDIA ANTIGEN DETECTE... Complete 04/13/17 03:25 Stool Stool - Final NO ENTERIC PATHOGENS DETECTED BY PCR... Complete Imaging Last Impressions Chest X-Ray 04/15/17 1400 Signed Impressions: Service Date/Time: Saturday, April 15, 2017 15:10 - CONCLUSION: 1. Support equipment in satisfactory position. 2. Continued bilateral infiltrates unchanged from previous. Kerwin Martinez MD Abdomen X-Ray 04/14/17 0000 Signed Impressions: Service Date/Time: Friday, April 14, 2017 13:34 - CONCLUSION: 1. Multiple loops of air-filled, dilated small bowel are present suggesting ileus. Kerwin Martinez MD Small Bowel X-Ray 04/12/17 0000 Signed Impressions: Service Date/Time: Wednesday, April 12, 2017 14:36 - CONCLUSION: 1. Mild small bowel dilatation without obstruction. Contrast reaches distal colon by 4 hours. Abrahan Gómez MD Head CT 04/10/17 1648 Signed Impressions: Service Date/Time: Monday, April 10, 2017 17:11 - CONCLUSION: 1. No acute intracranial abnormality or significant interval change. Daniel Carvajal MD Abdomen/Pelvis CT 04/10/17 1625 Signed Impressions: Service Date/Time: Monday, April 10, 2017 17:15 - CONCLUSION: Mild fluid and gaseous distention of small bowel, mainly the proximal small bowel. No acute focal findings in the abdomen or pelvis on noncontrast evaluation. King Shi MD Chest CT 04/10/17 0000 Signed Impressions: Service Date/Time: Monday, April 10, 2017 17:15 - CONCLUSION: 1. ETT just above the [place]. 2. Dense right lower lobe airspace consolidation with diffuse patchy nodular airspace disease throughout the remainder of the right lung and at the extreme left lung base. Findings are most consistent with pneumonia, atypical infection or aspiration. 3. No significant effusion or pneumothorax. Daniel Carvajal MD Physical Exam CONSTITUTIONAL/GENERAL: This is a morbidly obese patient, in no apparent distress. Int'd [facility] TUBES/LINES/DRAINS: SKIN: No jaundice, rashes, or lesions. Skin temperature appropriate. Not diaphoretic. EYES: Pupils equal and round and reactive. Extraocular motions intact. No scleral icterus. No injection or drainage. Fundi not examined. ENT: Hearing OK, opens eyes, follows commands . Orally intubated NECK: Trachea midline. CARDIOVASCULAR: Regular rate and rhythm without murmurs, gallops, or rubs. No JVD. Peripheral pulses symmetric. RESPIRATORY/CHEST: Symmetric, unlabored respirations. Clear to auscultation. Breath sounds equal bilaterally. No wheezes, rales, or rhonchi. GASTROINTESTINAL: Abdomen soft, non-tender, less distended. Less tympanic in mid abdomen No hepato-splenomegaly, or palpable masses. No guarding. Bowel sounds present. GENITOURINARY: Without palpable bladder distension. Cuellar catheter in place; urine markedly cleared up MUSCULOSKELETAL: Extremities without clubbing, cyanosis, + edema, unchanged NEUROLOGICAL: sedated Opens eyes to voice Moves spontaneously all extremities PSYCHIATRIC: Unable to assess Assessment & Plan Remarks Assessment and Plan sepsis UTI, Proteus Gross hematuria: resolving Acute VDRF ARF: improving ? PNA - sputum with E.coli Enterococcal high grade bacteremia - S to ampicillin - 2 D echo negative for vegetation - repeat blood clx negative Ileus, now having diarrhea no e/o small bowel obstruction - C.diff negative enteric pathogens negative Critically ill, unstable Worsening leukocytosis ? source Rec's: start unasyn dc vancomycin, zosyn monitor WBC rechk stool for C.diff dw Vicki Mckeon MD Apr 15, 2017 20:44
[2017-04-15] MEDS: AMPICILLIN-SULBACTAM INJ 3 GM in SODIUM CHLORIDE 0.9% INJ 100 ML IV SCH (23:12)
[2017-04-16] VITALS (35 sets, daily range): BP systolic 100–128; BP diastolic 42–59; PULSE 55–64; RESP 6–15; TEMP 97.4–97.8; O2SAT 96–100
[2017-04-16] MEDS: SODIUM CHLOR 0.9% 1000 ML INJ 1,000 ML IV SCH ×3 (00:45→20:45)
[2017-04-16] MEDS: CHLORHEXIDINE GLUCONATE 2 % 1 PACK (2 CLOTHS) TOP SCH (04:00)
[2017-04-16] MEDS: PROPOFOL 1000 MG/100 ML IV PRN ×2 (05:48→17:44)
[2017-04-16] MEDS: ARTIFICIAL TEARS OPTH SOLN 15 ML BTL EACH EYE SCH ×3 (05:48→14:42)
[2017-04-16] MEDS: METOCLOPRAMIDE HCL 10 MG/2 ML VIAL IV PUSH SCH ×6 (05:48→22:32)
[2017-04-16] MEDS: VASOPRESSIN INJ 40 UNITS in DEXTROSE 5% IN WATER 100ML INJ 98 ML IV SCH ×4 (05:59→22:36)
[2017-04-16] MEDS: AMPICILLIN-SULBACTAM INJ 3 GM in SODIUM CHLORIDE 0.9% INJ 100 ML IV SCH ×2 (07:59→22:33)
[2017-04-16] MEDS: INSULIN DETEMIR 100 UNITS/ML VIAL SQ SCH ×2 (07:59→22:33)
[2017-04-16] MEDS: POLYETHYLENE GLYCOL 17 GM PKG PO SCH (08:00)
[2017-04-16] MEDS: LANTHANUM CARBONATE 500 MG CHEWABLE TABLET CHEW SCH ×3 (08:00→18:06)
[2017-04-16] MEDS: INSULIN NovoLIN REGULAR SUPPLEMENTAL SCALE SQ SCH ×4 (08:00→20:00)
[2017-04-16] MEDS: SENNOSIDES SYRUP 8.8 MG/5 ML CUP PO SCH (08:00)
[2017-04-16] MEDS: CALCIUM/VITAMIN D 250 MG/125 U TAB PO SCH ×2 (08:00→22:32)
[2017-04-16] MEDS: DOCUSATE SODIUM 50 MG/SENNA 8.6 MG TAB PO SCH ×2 (08:00→22:32)
[2017-04-16 10:10] LABS: AUTOMATED NEUTROPHIL # 21.8 TH/MM3 (1.8-7.7); BASOPHIL # 0.1 TH/MM3 (0-0.2); BASOPHIL % 0.2 % (0.0-2.0); EOSINOPHIL # 0.5 TH/MM3 (0-0.4); EOSINOPHIL % 1.8 % (0.0-4.0); HEMATOCRIT 24.7 % (35.0-46.0); LYMPH % 11.5 % (9.0-44.0); MEAN CELL VOLUME 86.7 FL (80.0-100.0); MEAN CORPUSCULAR HEMOGLOBIN 28.2 PG (27.0-34.0); MEAN CORPUSCULAR HGB CONC 32.6 % (32.0-36.0); MONO % 1.7 % (0.0-8.0); NEUT % 84.8 % (16.0-70.0); PLATELET COUNT 267 TH/MM3 (150-450); RED BLOOD COUNT 2.84 MIL/MM3 (4.00-5.30); RED CELL DISTRIBUTION WIDTH 19.5 % (11.6-17.2); WHITE BLOOD COUNT 25.7 TH/MM3 (4.0-11.0)
[2017-04-16 10:12] LABS: HEMO FLAGS AUTO DIFF
[2017-04-16 10:43] LABS: BICARBONATE 22.7 MEQ/L (21.0-32.0); CALCIUM-PROTEIN CORRECTED 8.2 MG/DL (8.5-10.1); MAGNESIUM 2.1 MG/DL (1.5-2.5); POTASSIUM 3.1 MEQ/L (3.5-5.1); TOTAL BILIRUBIN ADULT 0.9 MG/DL (0.2-1.0)
[2017-04-16 10:44] LABS: BANDS 4 % (0-6); NEUTROPHIL # MANUAL DIFF 23.1 TH/MM3 (1.8-7.7); POLYS (SEG NEUTROPHILS) 86 % (16-70); WBC DIFF SAMPLE 100
[2017-04-16 10:45] LABS: PLATELET ESTIMATE SMEAR NORMAL (NORMAL); PLATELET MORPHOLOGY NORMAL (NORMAL); SCAN/DIFF FINAL DIFF MANUAL
[2017-04-16] MEDS: NOREPINEPHRINE 4 MG/D5W 250 ML IV PRN (11:43)
[2017-04-16] MEDS ORDERED: ICU - POTASSIUM PHOSPHATE 30 MMOL/NS 250 ML IV PRN ×2 (12:45)
[2017-04-16] MEDS ORDERED: ICU - MAGNESIUM SULFATE 4 GM/NS 100 ML IV PRN ×2 (12:45)
[2017-04-16] MEDS ORDERED: ICU - D/C ICU ELECTROLYTE ORDERS PRN (12:45)
[2017-04-16] MEDS ORDERED: ICU - MAGNESIUM OXIDE 400 MG TAB PO PRN (12:45)
[2017-04-16] MEDS ORDERED: POTASSIUM CHLORIDE 25 MEQ EFFERVESCENT TAB PO PRN (12:45)
[2017-04-16] MEDS ORDERED: ICU - SODIUM PHOSPHATE 30 MMOL/NS 250 ML IV PRN ×2 (12:45)
[2017-04-16] MEDS ORDERED: ICU - POTASSIUM PHOSPHATE MONOBASIC 500 MG TAB PO PRN (12:45)
[2017-04-16] MEDS ORDERED: ICU - MAGNESIUM SULFATE 2 GM/NS 100 ML IV PRN ×2 (12:45)
[2017-04-16] MEDS ORDERED: ICU - CALL ORDERING PHYSICIAN PRN (12:45)
--- NOTE | 2017-04-16 13:43 | HHI.IDPN ---
Subjective Subjective Remarks Pt remains on pressors, vasopressin 0.04 anf levaphed 5 mcs , she is afebrile remains on vent cont to have diarrhea , + WBC slightly better down to 25K Antibiotics unasyn Allergies: Coded Allergies: *MDRO Multi-Drug Resistant Organism (Verified Adverse Reaction, Unknown, ) MRSA PCR Screen POSITIVE - 10/24/2016 MRSA (sputum)-10/24/16 Objective . Vital Signs Date Time Temp Pulse Resp B/P (MAP) Pulse Ox O2 Delivery O2 Flow Rate FiO2 04/16/17 12:00 40 04/16/17 11:43 55 104/40 04/16/17 11:37 98 40 04/16/17 09:16 98 40 04/16/17 08:00 40 04/16/17 06:00 57 04/16/17 05:59 57 115/44 04/16/17 05:57 55 101/51 04/16/17 04:43 99 40 04/16/17 04:00 40 04/16/17 04:00 57 04/16/17 04:00 97.6 55 10 101/51 (68) 96 04/16/17 02:00 58 04/16/17 02:00 40 04/16/17 00:29 97 40 04/16/17 00:00 56 04/16/17 00:00 97.4 56 14 110/55 (73) 97 04/15/17 22:00 58 04/15/17 22:00 40 04/15/17 20:00 58 04/15/17 20:00 97.6 58 14 123/56 (78) 97 04/15/17 20:00 40 04/15/17 19:37 97 40 04/15/17 19:00 58 123/56 04/15/17 18:00 58 04/15/17 16:30 58 10 97/43 (61) 94 04/15/17 16:24 59 111/44 04/15/17 16:00 97.6 60 14 106/46 (66) 94 04/15/17 16:00 40 04/15/17 16:00 60 04/15/17 15:52 95 40 04/15/17 15:30 63 24 129/60 (83) 95 04/15/17 15:00 62 17 103/44 (63) 95 04/15/17 14:30 61 8 122/52 (75) 96 04/15/17 14:00 61 15 121/53 (75) 95 04/15/17 14:00 61 04/16/17 04/16/17 04/17/17 15:00 23:00 07:00 Intake Total 231 ml Balance 231 ml Intake IV Total 231 ml . Laboratory Tests Test 04/15/17 04:00 04/16/17 09:40 White Blood Count 28.5 TH/MM3 25.7 TH/MM3 Red Blood Count 2.87 MIL/MM3 2.84 MIL/MM3 Hemoglobin 7.9 GM/DL 8.0 GM/DL Hematocrit 24.5 % 24.7 % Mean Corpuscular Volume 85.5 FL 86.7 FL Mean Corpuscular Hemoglobin 27.5 PG 28.2 PG Mean Corpuscular Hemoglobin Concent 32.2 % 32.6 % Red Cell Distribution Width 19.9 % 19.5 % Platelet Count 328 TH/MM3 267 TH/MM3 Mean Platelet Volume 8.5 FL 9.4 FL Neutrophils (%) (Auto) 86.4 % 84.8 % Lymphocytes (%) (Auto) 11.1 % 11.5 % Monocytes (%) (Auto) 1.8 % 1.7 % Eosinophils (%) (Auto) 0.6 % 1.8 % Basophils (%) (Auto) 0.1 % 0.2 % Neutrophils # (Auto) 24.7 TH/MM3 21.8 TH/MM3 Lymphocytes # (Auto) 3.2 TH/MM3 3.0 TH/MM3 Monocytes # (Auto) 0.5 TH/MM3 0.4 TH/MM3 Eosinophils # (Auto) 0.2 TH/MM3 0.5 TH/MM3 Basophils # (Auto) 0.0 TH/MM3 0.1 TH/MM3 CBC Comment AUTO DIFF AUTO DIFF Differential Total Cells Counted 100 100 Neutrophils % (Manual) 86 % 86 % Band Neutrophils % 1 % 4 % Lymphocytes % 7 % 10 % Monocytes % 2 % Eosinophils % 1 % Neutrophils # (Manual) 25.7 TH/MM3 23.1 TH/MM3 Metamyelocytes 1 % Promyelocytes 2 % Differential Comment FINAL DIFF MANUAL FINAL DIFF MANUAL Toxic Granulation 1+ Platelet Estimate NORMAL NORMAL Platelet Morphology Comment NORMAL NORMAL Target Cells 1+ Laboratory Tests Test 04/14/17 16:30 04/15/17 04:00 10/10/17 09:40 Potassium Level 3.8 MEQ/L 3.5 MEQ/L 3.1 MEQ/L Blood Urea Nitrogen 49 MG/DL 43 MG/DL Creatinine 1.56 MG/DL 1.50 MG/DL Random Glucose 155 MG/DL 114 MG/DL Total Protein 5.6 GM/DL 5.7 GM/DL Albumin 1.6 GM/DL 1.5 GM/DL Calcium Level 7.2 MG/DL 7.4 MG/DL Phosphorus Level 4.2 MG/DL 4.0 MG/DL Magnesium Level 2.2 MG/DL 2.1 MG/DL Alkaline Phosphatase 301 U/L 406 U/L Aspartate Amino Transf (AST/SGOT) 27 U/L 37 U/L Alanine Aminotransferase (ALT/SGPT) 11 U/L 11 U/L Total Bilirubin 0.9 MG/DL 0.9 MG/DL Sodium Level 133 MEQ/L 130 MEQ/L Chloride Level 99 MEQ/L 96 MEQ/L Carbon Dioxide Level 22.6 MEQ/L 22.7 MEQ/L Anion Gap 11 MEQ/L 11 MEQ/L Estimat Glomerular Filtration Rate 32 ML/MIN 34 ML/MIN Protein Corrected Calcium 8.0 MG/DL 8.2 MG/DL Imaging Last Impressions Abdomen X-Ray 04/15/17 1405 Signed Impressions: Service Date/Time: Saturday, April 15, 2017 15:15 - CONCLUSION: 1. Gaseous distension predominantly small bowel as described above. 2. Nasogastric tube does have the stomach decompressed. Everardo Martinez MD FACR Chest X-Ray 04/15/17 1400 Signed Impressions: Service Date/Time: Saturday, April 15, 2017 15:10 - CONCLUSION: 1. Support equipment in satisfactory position. 2. Continued bilateral infiltrates unchanged from previous. Kerwin Martinez MD Small Bowel X-Ray 04/12/17 0000 Signed Impressions: Service Date/Time: Wednesday, April 12, 2017 14:36 - CONCLUSION: 1. Mild small bowel dilatation without obstruction. Contrast reaches distal colon by 4 hours. Abrahan Gómez MD Head CT 04/10/17 1648 Signed Impressions: Service Date/Time: Monday, April 10, 2017 17:11 - CONCLUSION: 1. No acute intracranial abnormality or significant interval change. Daniel Carvajal MD Abdomen/Pelvis CT 04/10/17 1625 Signed Impressions: Service Date/Time: Monday, April 10, 2017 17:15 - CONCLUSION: Mild fluid and gaseous distention of small bowel, mainly the proximal small bowel. No acute focal findings in the abdomen or pelvis on noncontrast evaluation. King Shi MD Chest CT 04/10/17 0000 Signed Impressions: Service Date/Time: Monday, April 10, 2017 17:15 - CONCLUSION: 1. ETT just above the [place]. 2. Dense right lower lobe airspace consolidation with diffuse patchy nodular airspace disease throughout the remainder of the right lung and at the extreme left lung base. Findings are most consistent with pneumonia, atypical infection or aspiration. 3. No significant effusion or pneumothorax. Daniel Carvajal MD Physical Exam CONSTITUTIONAL/GENERAL: This is a morbidly obese patient, in no apparent distress. Int'd on mech vent'n TUBES/LINES/DRAINS: SKIN: No jaundice, rashes, or lesions. Skin temperature appropriate. Not diaphoretic. CARDIOVASCULAR: Regular rate and rhythm without murmurs, gallops, or rubs. No JVD. Peripheral pulses symmetric. RESPIRATORY/CHEST: Symmetric, unlabored respirations. Clear to auscultation. Breath sounds equal bilaterally. No wheezes, rales, or rhonchi. GASTROINTESTINAL: Abdomen soft, non-tender, less distended. Less tympanic in mid abdomen No hepato-splenomegaly, or palpable masses. No guarding. Bowel sounds present. GENITOURINARY: Without palpable bladder distension. Cuellar catheter in place; urine markedly cleared up MUSCULOSKELETAL: Extremities without clubbing, cyanosis, + edema seem worse NEUROLOGICAL: sedated; off sedation follows commands PSYCHIATRIC: Unable to assess Assessment & Plan Remarks Assessment and Plan sepsis UTI, Proteus Gross hematuria: resolving Acute VDRF ARF: improving ? PNA - sputum with E.coli Enterococcal high grade bacteremia - S to ampicillin - 2 D echo negative for vegetation - repeat blood clx negative Ileus, now having diarrhea no e/o small bowel obstruction - C.diff negative enteric pathogens negative Critically ill, unstable persistent leukocytosis - better Rec's: cont unasyn monitor WBC rechk stool for C.diff dw Vicki Mckeon MD Apr 16, 2017 13:43
--- NOTE | 2017-04-16 14:12 | HHI.GIFU ---
Subjective Remarks Resting in bed, sedated on vent. Tolerating TF. (Esther Wells) Objective Vitals I&O Vital Signs Date Time Temp Pulse Resp B/P (MAP) Pulse Ox O2 Delivery O2 Flow Rate FiO2 04/16/17 12:00 40 04/16/17 11:43 55 104/40 04/16/17 11:37 98 40 04/16/17 09:16 98 40 04/16/17 08:00 40 04/16/17 06:00 57 04/16/17 05:59 57 115/44 04/16/17 05:57 55 101/51 04/16/17 04:43 99 40 04/16/17 04:00 40 04/16/17 04:00 57 04/16/17 04:00 97.6 55 10 101/51 (68) 96 04/16/17 02:00 58 04/16/17 02:00 40 04/16/17 00:29 97 40 04/16/17 00:00 56 04/16/17 00:00 97.4 56 14 110/55 (73) 97 04/15/17 22:00 58 04/15/17 22:00 40 04/15/17 20:00 58 04/15/17 20:00 97.6 58 14 123/56 (78) 97 04/15/17 20:00 40 04/15/17 19:37 97 40 04/15/17 19:00 58 123/56 04/15/17 18:00 58 04/15/17 16:30 58 10 97/43 (61) 94 04/15/17 16:24 59 111/44 04/15/17 16:00 97.6 60 14 106/46 (66) 94 04/15/17 16:00 40 04/15/17 16:00 60 04/15/17 15:52 95 40 04/15/17 15:30 63 24 129/60 (83) 95 04/15/17 15:00 62 17 103/44 (63) 95 04/15/17 14:30 61 8 122/52 (75) 96 I/O 04/15/17 04/15/17 04/15/17 04/16/17 04/16/17 04/16/17 07:00 15:00 23:00 07:00 15:00 23:00 Intake Total 1303 ml 847 ml 2314.5 ml 837 ml 231 ml Output Total 1400 ml 4225 ml 1200 ml Balance -97 ml 847 ml -1910.5 ml -363 ml 231 ml Intake IV Total 1150 ml 847 ml 2179.5 ml 672 ml 231 ml Tube Feeding 93 ml 75 ml 165 ml Tube Irrigant 60 ml 60 ml Output Urine Total 1100 ml 3225 ml 1200 ml Stool Total 300 ml 1000 ml Laboratory Laboratory Tests Test 04/16/17 09:40 White Blood Count 25.7 Red Blood Count 2.84 Hemoglobin 8.0 Hematocrit 24.7 Mean Corpuscular Volume 86.7 Mean Corpuscular Hemoglobin 28.2 Mean Corpuscular Hemoglobin Concent 32.6 Red Cell Distribution Width 19.5 Platelet Count 267 Mean Platelet Volume 9.4 Neutrophils (%) (Auto) 84.8 Lymphocytes (%) (Auto) 11.5 Monocytes (%) (Auto) 1.7 Eosinophils (%) (Auto) 1.8 Basophils (%) (Auto) 0.2 Neutrophils # (Auto) 21.8 Lymphocytes # (Auto) 3.0 Monocytes # (Auto) 0.4 Eosinophils # (Auto) 0.5 Basophils # (Auto) 0.1 CBC Comment AUTO DIFF Differential Total Cells Counted 100 Neutrophils % (Manual) 86 Band Neutrophils % 4 Lymphocytes % 10 Neutrophils # (Manual) 23.1 Differential Comment FINAL DIFF MANUAL Platelet Estimate NORMAL Platelet Morphology Comment NORMAL Blood Urea Nitrogen 43 Creatinine 1.50 Random Glucose 114 Total Protein 5.7 Albumin 1.5 Calcium Level 7.4 Phosphorus Level 4.0 Magnesium Level 2.1 Alkaline Phosphatase 406 Aspartate Amino Transf (AST/SGOT) 37 Alanine Aminotransferase (ALT/SGPT) 11 Total Bilirubin 0.9 Sodium Level 130 Potassium Level 3.1 Chloride Level 96 Carbon Dioxide Level 22.7 Anion Gap 11 Estimat Glomerular Filtration Rate 34 Protein Corrected Calcium 8.2 Date/Time Source Procedure Growth Status 04/11/17 11:18 Blood Peripheral Aerobic Blood Culture - Final NO GROWTH IN 5 DAYS Complete 04/11/17 11:18 Blood Peripheral Anaerobic Blood Culture - Final NO GROWTH IN 5 DAYS Complete 04/13/17 03:25 Stool Stool Cryptosporidium Exam - Final NEGATIVE - NO CRYPTOSPORIDIUM ANTIGEN... Complete 04/13/17 03:25 Stool Stool Stool Pus (CHRISTIANO) - Final RARE WBC Complete 04/13/17 03:25 Stool Stool Giardia Antigen (CHRISTIANO) - Final NEGATIVE - NO GIARDIA ANTIGEN DETECTE... Complete 04/11/17 20:00 Sputum Endotracheal Gram Stain - Final Complete 04/11/17 20:00 Sputum Culture - Final Escherichia Coli Complete 04/10/17 15:55 Urine Catheterized Urine Legionella Antigen - Final PRESUMPTIVE NEGATIVE FOR LEGIONELLA P... Complete 04/10/17 15:55 Urine Catheterized Urine Streptococcus pneumoniae Antigen (M - Final PRESUMPTIVE NEGATIVE FOR STREPTOCOCCU... Complete Imaging Last Impressions Abdomen X-Ray 04/15/17 1405 Signed Impressions: Service Date/Time: Saturday, April 15, 2017 15:15 - CONCLUSION: 1. Gaseous distension predominantly small bowel as described above. 2. Nasogastric tube does have the stomach decompressed. Everardo Martinez MD FACR Chest X-Ray 04/15/17 1400 Signed Impressions: Service Date/Time: Saturday, April 15, 2017 15:10 - CONCLUSION: 1. Support equipment in satisfactory position. 2. Continued bilateral infiltrates unchanged from previous. Kerwin Martinez MD Small Bowel X-Ray 04/12/17 0000 Signed Impressions: Service Date/Time: Wednesday, April 12, 2017 14:36 - CONCLUSION: 1. Mild small bowel dilatation without obstruction. Contrast reaches distal colon by 4 hours. Abrahan Gómez MD Head CT 04/10/17 1648 Signed Impressions: Service Date/Time: Monday, April 10, 2017 17:11 - CONCLUSION: 1. No acute intracranial abnormality or significant interval change. Daniel Carvajal MD Abdomen/Pelvis CT 04/10/17 1625 Signed Impressions: Service Date/Time: Monday, April 10, 2017 17:15 - CONCLUSION: Mild fluid and gaseous distention of small bowel, mainly the proximal small bowel. No acute focal findings in the abdomen or pelvis on noncontrast evaluation. King Shi MD Chest CT 04/10/17 0000 Signed Impressions: Service Date/Time: Monday, April 10, 2017 17:15 - CONCLUSION: 1. ETT just above the [place]. 2. Dense right lower lobe airspace consolidation with diffuse patchy nodular airspace disease throughout the remainder of the right lung and at the extreme left lung base. Findings are most consistent with pneumonia, atypical infection or aspiration. 3. No significant effusion or pneumothorax. Daniel Carvajal MD Physical Exam HEENT: Normocephalic; atraumatic; no jaundice CHEST: Resp even/unlabored. OETT to vent. Diminished bases. CARDIAC: RRR ABDOMEN: Soft, mildly distended, bowel sounds present, TF via ogt. Flexiseal with liquid stool EXTREMITIES: Gen. edema SKIN: Skin warm/dry [employer]: Sedated on vent (Esther Wells) Assessment and Plan Plan ASSESSMENT: - Ileus, mild. Pt came to the ER with nausea/vomiting, respiratory distress, AMS. CT scan abdomen and pelvis (04/10/17)----> Mild fluid and gaseous distention of small bowel, mainly the proximal small bowel. No acute focal findings in the abdomen or pelvis on noncontrast evaluation. SBFT (04/12/17)---> Mild small bowel dilatation without obstruction. Contrast reaches distal colon by 4 hours. KUB (04/14/17)----> Multiple loops of air-filled, dilated small bowel are present suggesting ileus. CDiff negative. Cryptosporidium negative, giardia negative, WBC rare, Cx negative. Tolerating TF. Reglan. Miralax. Senna. - Acute respiratory failure, PNA, COPD, LAXMI. Vent per CCM Abx per CCM - Sepsis with leukocytosis, UTI, PNA. Rpt. BCx pending no growth one day, urine neg for legionella/streptococcus, ur cx GNR, BCx GPC. Sputum E. Coli. WBC 25.7. Unasyn - Hematuria. following, ? traumatic santoyo placement. CBI. IMproved. following. - Anemia. S/P EGD (02/26/17)---> the esophagus was otherwise normal, multiple small ulcers were found in the prepyloric region of the stomach and at the pylorus; biopsies were taken. Food residue in the gastric fundus, cardia, and gastric body, normal duodenal mucosa in the bulb and second portion of the duodenum, retroflexion was performed and was normal. Pathology revealed moderate chronic active gastritis with features of ulceration and associated reactive epithelial changes negative for H. pylori. S/P 2 units prbc. 8.0/24.7. - CVA, Paroxysmal atrial fibrillation. - HIRAM with electrolyte abnormalities, Creat 1.50 - DM, Hyperlipidemia per attending PLAN: - TF as tolerated (Nepro GR 40cc) - Cont. Protonix - Cont. Reglan 5mg IV q8h - Cont. Miralax 17gram per OGT daily - GI will sign off, please reconsult as needed - Pt seen and examined by Dr. Maciel and myself and this note is written on his behalf (Esther Wells) Physician Comments Seen and examined with NAT, illeus resolving, advance TF as needed. Keep residuals < 150cc. Monitor labs. GI will sign off, reconsult PRN. Thank you (Tung Maciel MD) Esther Wells Apr 16, 2017 14:12 Tung Maciel MD Apr 16, 2017 16:47
[2017-04-16] MEDS: ICU - POTASSIUM CHLORIDE/AQUEOUS SOLN 40 MEQ/100 ML IVPB IV PRN ×2 (14:43→16:42)
[2017-04-16] MEDS ORDERED: PHARMACY ORDERED LAB ONE (14:45)
--- NOTE | 2017-04-16 15:31 | HHI.NPPN ---
Subjective History of Present Illness 72-year-old female known to me from her last admission when she was admitted in October of this year with past medical history of hypertension, diabetes mellitus, chronic kidney disease, history of cerebrovascular accident, hyperlipidemia, sleep apnea, atrial fibrillation, was admitted with altered mental status. I was called to see the patient because of elevated BUN and creatinine. I saw her when she was here in October and at that time her creatinine was as high as 2.8 and then it improved to around 1.4-1.6, which is probably her baseline. Additional Remarks Patient remain on the vent, sedated, and unresponsive. Review of Systems General General Remarks Intubated and sedated. Objective Data Data 04/16/17 04/17/17 19:00 07:00 Intake Total 231 ml Balance 231 ml Intake IV Total 231 ml Vital Signs Date Time Temp Pulse Resp B/P (MAP) Pulse Ox O2 Delivery O2 Flow Rate FiO2 04/16/17 14:00 57 9 119/51 (73) 100 04/16/17 14:00 57 04/16/17 13:30 59 10 128/54 (78) 99 04/16/17 13:00 58 12 126/51 (76) 100 04/16/17 12:30 57 14 121/47 (71) 100 04/16/17 12:16 58 11 120/50 (73) 99 04/16/17 12:00 57 04/16/17 12:00 40 04/16/17 12:00 97.6 57 13 106/57 (73) 98 04/16/17 11:43 55 104/40 04/16/17 11:40 56 11 100/42 (61) 98 04/16/17 11:37 98 40 04/16/17 11:30 59 9 113/45 (67) 99 04/16/17 11:00 61 6 122/49 (73) 96 04/16/17 10:30 59 8 111/46 (67) 98 04/16/17 10:00 61 04/16/17 10:00 58 9 114/45 (68) 97 04/16/17 09:31 61 13 119/51 (73) 97 04/16/17 09:16 98 40 04/16/17 09:00 60 14 114/51 (72) 98 04/16/17 08:30 57 13 108/47 (67) 98 04/16/17 08:00 40 04/16/17 08:00 97.6 55 12 101/43 (62) 98 04/16/17 08:00 55 04/16/17 07:30 56 9 106/45 (65) 98 04/16/17 07:00 55 9 103/45 (64) 98 04/16/17 06:00 57 04/16/17 05:59 57 115/44 04/16/17 05:57 55 101/51 04/16/17 04:43 99 40 04/16/17 04:00 40 04/16/17 04:00 57 04/16/17 04:00 97.6 55 10 101/51 (68) 96 04/16/17 02:00 58 04/16/17 02:00 40 04/16/17 00:29 97 40 04/16/17 00:00 56 04/16/17 00:00 97.4 56 14 110/55 (73) 97 04/15/17 22:00 58 04/15/17 22:00 40 04/15/17 20:00 58 04/15/17 20:00 97.6 58 14 123/56 (78) 97 04/15/17 20:00 40 04/15/17 19:37 97 40 04/15/17 19:00 58 123/56 04/15/17 18:00 58 04/15/17 16:30 58 10 97/43 (61) 94 04/15/17 16:24 59 111/44 04/15/17 16:00 97.6 60 14 106/46 (66) 94 04/15/17 16:00 40 04/15/17 16:00 60 04/15/17 15:52 95 40 -: 04/16/17 0940 04/16/17 0940 Physical Exam General Appearance Remarks Intubated and sedated. Eyes Eye Exam: Pupils Equal Throat Throat Exam: Oral Mucosa [place] & Moist Neck Neck Exam: Neck Supple Pulmonary Resp Exam: Rhonchi, Decreased Bases, Diminished Breath Sounds, Poor Inspiratory Effort Cardiology CV Exam: Regular, Normal Sinus Rhythm Gastrointestinal/Abdomen GI Exam: Soft, Non-Tender, Bowel Sounds Present, Distended Extremeties Extremities Exam: Moderate Edema, Pitting Edema Neurologic Neuro Exam: Sedated Assessment/Plan Assessment Summary: HIRAM/Acute Renal Failure, Hypotension, CKD Stage III Problem List: (1) Dyspnea ICD Codes: R06.00 - Dyspnea, unspecified Status: Acute (2) Diabetes mellitus ICD Codes: E11.9 - Type 2 diabetes mellitus without complications Status: Chronic (3) Leukocytosis ICD Codes: D72.829 - Elevated white blood cell count, unspecified Status: Resolved (4) Encephalopathy ICD Codes: G93.40 - Encephalopathy, unspecified Status: Acute (5) Pneumonia ICD Codes: J18.9 - Pneumonia, unspecified organism Status: Acute (6) Acute respiratory failure ICD Codes: J96.00 - Acute respiratory failure, unspecified whether with hypoxia or hypercapnia Status: Acute (7) Anemia ICD Codes: D64.9 - Anemia, unspecified Status: Acute (8) Sepsis ICD Codes: A41.9 - Sepsis, unspecified organism Status: Resolved (9) UTI (urinary tract infection) ICD Codes: N39.0 - Urinary tract infection, site not specified Status: Resolved (10) Acute renal failure ICD Codes: N17.9 - Acute kidney failure, unspecified Status: Acute (11) Acute worsening of stage 3 chronic kidney disease ICD Codes: N18.3 - Chronic kidney disease, stage 3 (moderate) Status: Acute Plan Patient has chronic kidney disease. The baseline Creatinine is 1.7-1.8. Now develop HIRAM, possibly related to Hypotension and ATN. Has sepsis and UTI, BP is low, on pressors. Has hematuria, and the urine is getting more clear.. Creatinine is stable now 1.5, K is 3.1, and replaced. Both Mg. and K replaced. Continue antibiotics.Avoid Nephrotoxins. Follow the Vanco. level. Continue IVF and antibiotics. Follow the urine out put and BMP. Problem Qualifiers (1) Pneumonia: Qualified Codes: J18.9 - Pneumonia, unspecified organism (2) Acute respiratory failure: Qualified Codes: J96.00 - Acute respiratory failure, unspecified whether with hypoxia or hypercapnia (3) Anemia: Qualified Codes: D64.9 - Anemia, unspecified (4) Sepsis: Qualified Codes: A41.9 - Sepsis, unspecified organism (5) UTI (urinary tract infection): Qualified Codes: N39.0 - Urinary tract infection, site not specified (6) Acute renal failure: Qualified Codes: N17.9 - Acute kidney failure, unspecified [email or web address]. MD Apr 16, 2017 15:31
--- NOTE | 2017-04-16 16:10 | HHI.CCPN ---
Subjective Remarks/Hospital Course The patient is a 72-year-old female with multiple medical comorbidities which include hypertension, diabetes mellitus, hyperlipidemia, obstructive sleep apnea on C-PAP machine at home, COPD, CVA with residual left-sided hemiparesis who presented to [facility] ED with altered mental status and emesis. She was last seen normal yesterday. The patient was on non-rebreather mask initially, however, she was intubated with etomidate, succinylcholine and placed on mechanical ventilation. Also she was placed on Versed drip for sedation. ABG post intubation showed acute hypercapnic respiratory failure with a pH of 7.36, CO2 51, pAO2 322, bicarb 28 and saturation 97%. Her laboratory data significant for acute renal failure with a BUN of 91, creatinine 3.65. Lactic acid was 1.9. Also she was found to have leukocytosis with a WBC of 17.1 associated with bandemia of 26. Her urinalysis was positive for leukocyte esterase, moderate blood and many bacteria. Chest x-ray post intubation showed ET tube above the kimberlyn, questionable elevation of right hemidiaphragm with subsegmental atelectasis. In the ER she is currently receiving a second liter of IV fluids and received cefepime and vancomycin. A Cuellar was placed in the ER and post placement the patient noted to have hematuria. to her altered mental status she was scheduled to undergo CT scan of the brain without contrast. Of note the patient was on Eliquis for a history of paroxysmal atrial fibrillation. Also a CT scan of the thorax, abdomen, pelvis without contrast were ordered by the ED physician. Most of the history was obtained from reviewing medical records as the patient is intubated and no family members present at the bedside 04/11 Patient became hypotensive overnight started on Levophed 15 mics and Vasopressin. Sedated with fentanyl, Diprivan and intubated. Afebrile. BC from yesterday GPC. 04/12: Currently afebrile. Currently on norepinephrine at 6 mcg/m and vasopressin 0.04 units per minute sedated on the ventilator and propofol and fentanyl drips. Currently undergoing small bowel follow-through. 04/13: Currently on propofol at 9 mcg/kg per minute. Off fentanyl drip. Small bowel follow-through revealed transition to colon at 4 hours. No signs of bowel obstruction. Small bowel is mildly dilatated. Creatinine currently 2.1. Edematous. Vasopressor requirements decreasing. Subjective 04/14: Afebrile. Currently on propofol; at 10 g per kilogram per minute. Positive BM. Creatinine Is currently at baseline 1.8. Abdominal x-ray pending 04/15 Remains intubated sedated with propofol. Intermittently follows commands. KUB shows gaseous distention. WBC increased to 28.5 creatinine improving 04/16: Patient remains septic remains on Levophed and vasopressin. Intermittently follows commands with the right upper extremity. WBC count is slightly improved. UO adequate. Failed CPAP trial Objective Vital Signs Date Time Temp Pulse Resp B/P (MAP) Pulse Ox O2 Delivery O2 Flow Rate FiO2 04/16/17 14:00 57 9 119/51 (73) 100 04/16/17 12:00 40 04/16/17 12:00 97.6 Intake and Output 04/16/17 04/16/17 04/16/17 07:59 15:59 23:59 Intake Total 837 ml 231 ml Output Total 1200 ml Balance -363 ml 231 ml Result Diagram: 04/16/17 0940 04/16/17 0940 Imaging Last Impressions Chest X-Ray 04/13/17 0600 Signed Impressions: Service Date/Time: Thursday, April 13, 2017 04:03 - CONCLUSION: Worsening bilateral pulmonary infiltrates. Anthony Duncan Jr., MD Abdomen X-Ray 04/13/17 0600 Signed Impressions: Service Date/Time: Thursday, April 13, 2017 04:10 - CONCLUSION: Unchanged dilated small bowel. Oral contrast reaches the rectal vault. Anthony Duncan Jr., MD Small Bowel X-Ray 04/12/17 0000 Signed Impressions: Service Date/Time: Wednesday, April 12, 2017 14:36 - CONCLUSION: 1. Mild small bowel dilatation without obstruction. Contrast reaches distal colon by 4 hours. Arbahan Góemz MD Head CT 04/10/17 1648 Signed Impressions: Service Date/Time: Monday, April 10, 2017 17:11 - CONCLUSION: 1. No acute intracranial abnormality or significant interval change. Daniel Carvajal MD Abdomen/Pelvis CT 04/10/17 1625 Signed Impressions: Service Date/Time: Monday, April 10, 2017 17:15 - CONCLUSION: Mild fluid and gaseous distention of small bowel, mainly the proximal small bowel. No acute focal findings in the abdomen or pelvis on noncontrast evaluation. King Shi MD Chest CT 04/10/17 0000 Signed Impressions: Service Date/Time: Monday, April 10, 2017 17:15 - CONCLUSION: 1. ETT just above the kimberlyn. 2. Dense right lower lobe airspace consolidation with diffuse patchy nodular airspace disease throughout the remainder of the right lung and at the extreme left lung base. Findings are most consistent with pneumonia, atypical infection or aspiration. 3. No significant effusion or pneumothorax. Daniel Carvajal MD Objective Remarks GENERAL: Patient is 72 yo critically ill orotracheally intubated SKIN: Warm and dry. Decubitus ulcer bilateral gluteal. Stage II. HEAD: Normocephalic. EYES: No scleral icterus. No injection or drainage. NECK: Supple, trachea midline. No JVD or lymphadenopathy. CARDIOVASCULAR: Regular rate and rhythm currently. S1, S2 no S4. Without murmurs, gallops, or rubs. RESPIRATORY: Breath sounds equal bilaterally. No accessory muscle use. Bilateral rhonchi GASTROINTESTINAL: Abdomen soft, non-tender, obese. No bowel sounds are appreciated : Cuellar in place with resolved Hematuria. MUSCULOSKELETAL: +2 edema. Neuro: Arousable on the ventilator. Opens eyes to stimulation. Positive gag. Moves all 4 extremities spontaneously but weaker on L side. Follows command weekly on the right upper extremity Date of Insertion: Apr 10, 2017 Line: Central Venous Catheter Side: Right Location: Subclavian A/P Assessment and Plan Neuro/Psych: History of CVA with left-sided weakness Patient is currently on propofol at 20 g per minute for sedation/analgesia while intubated Fentanyl drip currently on hold due to small bowel dilatation Goal of RA SS -2. Daily sedation vacation 04/10 -CT brain without contrast: No acute abnormalities. Pulm : Acute respiratory failure secondary to pneumonia/E Coli LAXMI COPD Continue with vent support and maintain sats above 92%. Ventilator bundle, PRVC 14/500/07/12/40, Daily SBT. Continues to fail weaning trial due to tachypnea respiratory distress Albuterol/ipratropium aerosols every 6 hours with albuterol aerosols every 2 hours as needed for dyspnea Chest x-ray revealed bilateral persistent infiltrates CT chest: Dense RLL airspace consolidation with diffuse patchy nodular airspace disease throughout the remainder of the right lung and at the extreme left lung base. Findings are most consistent with pneumonia, CV: Septic shock History of paroxysmal atrial fibrillation currently normal sinus rhythm Hypertension Dyslipidemia Currently on norepinephrine at 3 mics grams per minute and vasopressin 0.04 units per minute goal keep MAP> 65 mmHg. Off maintenance fluid. Echo: EF 55-60%. Lactic acid: 1.9 Renal/FEN/: Hematuria Hypocalcemia Hypopotassemia Hyponatremia Hypophosphatemia Monitor renal function, I/O's and avoid nephrotoxins Renal and Urology consulted. Creatinine improving. On continuous bladder irrigations with Amicar. Will DC if ok with urology. RN to call Dr. Cruz GI: Small bowel dilatation On Protonix 40 mg IV daily for GI prophylaxis. Small bowel follow-through - mild dilatation of small bowel however contrast does transition to: Within 4 hours. KUB - small bowel dilatation. Contrast rectum. Repeat 04/[address] abd/pelvis possible small bowel obstruction. GI following. Nepro at 10 cc an hour- advance as tolerated ID: Enterococcus faecalis bacteremia Proteus UTI Escherichia coli pneumonia Continue with abx ( Unasyn) Monitor for signs infections (fever and WBC) Pharmacy to adjust doses of abx per renal function. 04/10 blood cultures Enterococcus faecalis 3/ bottles. Check BC x 2 sets 04/10. 04/11 blood cultures no growth 04/10 UA positive Proteus 04/11 - sputum -Escherichia coli Influenza screening, strep pneumonia and Legionella urinary Ag negative. Follow up on urine cx, check sputum cx Wound care is following for sacral wound ulcers. Endo: Diabetes mellitus Continue SSI to medium scale with Accu-Chek q.4h for glycemic control. Continue detemir 7units BID Heme: Leukocytosis Normocytic anemia Monitor CBC and coags. MSK: Decubitus ulcer Santyl barrier cream twice a day. Wound care consulted GI prophylaxis with pantoprazole 40 mg daily and DVT prophylaxis with SCDs Not on chemical anticoagulation prophylaxis due to hematuria Will start 24 hours after DC of Amicar irrigation, if not hematuria Lines: Right subclavian CVL, Right radial Art line placed 04/10 Patient is critically ill with septic shock, resp failure, ARF, pneumonia, UTI CCT 30 mins Elmo Malik MD Apr 16, 2017 16:09
[2017-04-16] MEDS: PANTOPRAZOLE SODIUM 40 MG VIAL IV PUSH SCH (16:35)
[2017-04-16] MEDS: AMINOCAPROIC ACID INJ 3,000 MG in SODIUM CHLORIDE 0.9% IRR BAG 3,000 ML IRRIGATION SCH (22:32)
[2017-04-17] VITALS (15 sets, daily range): BP systolic 93–124; BP diastolic 50–98; PULSE 60–87; RESP 12–22; TEMP 96.7–98; O2SAT 93–100
[2017-04-17] MEDS: CHLORHEXIDINE GLUCONATE 2 % 1 PACK (2 CLOTHS) TOP SCH (04:00)
[2017-04-17] MEDS: INSULIN NovoLIN REGULAR SUPPLEMENTAL SCALE SQ SCH ×5 (04:00→20:00)
[2017-04-17] MEDS: RESP: ALBUTEROL 2.5 MG/3 ML NEB (PRN) NEB (04:32)
[2017-04-17] MEDS: METOCLOPRAMIDE HCL 10 MG/2 ML VIAL IV PUSH SCH ×4 (05:51→21:47)
[2017-04-17] MEDS: NOREPINEPHRINE 4 MG/D5W 250 ML IV PRN (06:03)
[2017-04-17] MEDS: SODIUM CHLOR 0.9% 1000 ML INJ 1,000 ML IV SCH (06:45)
[2017-04-17] MEDS: INSULIN DETEMIR 100 UNITS/ML VIAL SQ SCH ×2 (09:00→21:00)
[2017-04-17] MEDS: DOCUSATE SODIUM 50 MG/SENNA 8.6 MG TAB PO SCH ×2 (10:15→21:47)
[2017-04-17] MEDS: CALCIUM/VITAMIN D 250 MG/125 U TAB PO SCH ×2 (10:15→21:47)
[2017-04-17] MEDS: POLYETHYLENE GLYCOL 17 GM PKG PO SCH (10:15)
[2017-04-17] MEDS: LANTHANUM CARBONATE 500 MG CHEWABLE TABLET CHEW SCH ×3 (10:15→17:37)
[2017-04-17] MEDS: SENNOSIDES SYRUP 8.8 MG/5 ML CUP PO SCH (10:15)
[2017-04-17] MEDS: AMPICILLIN-SULBACTAM INJ 3 GM in SODIUM CHLORIDE 0.9% INJ 100 ML IV SCH ×2 (10:16→21:46)
--- NOTE | 2017-04-17 13:04 | HHI.PR ---
Subjective Patient symptoms today Pt seen and examined. Intubated and sedated. Urine is clearing Objective Vital Signs Vital Signs Date Time Temp Pulse Resp B/P (MAP) Pulse Ox O2 Delivery O2 Flow Rate FiO2 04/17/17 11:54 100 40 04/17/17 08:45 100 40 04/17/17 06:03 68 118/47 04/17/17 06:00 60 04/17/17 04:19 100 40 04/17/17 04:00 60 04/17/17 04:00 98.0 64 14 105/98 (100) 98 04/17/17 02:00 60 04/17/17 00:50 100 40 04/17/17 00:00 40 04/17/17 00:00 97.0 60 15 107/52 (70) 100 04/17/17 00:00 60 04/16/17 22:36 59 116/48 04/16/17 22:00 64 04/16/17 21:42 100 40 04/16/17 20:00 40 04/16/17 20:00 97.8 62 15 107/48 (67) 98 04/16/17 20:00 58 04/16/17 18:00 59 04/16/17 16:30 57 14 102/44 (63) 100 04/16/17 16:08 100 40 04/16/17 16:00 97.6 63 14 120/59 (79) 100 04/16/17 16:00 63 04/16/17 16:00 40 04/16/17 15:30 59 14 113/47 (69) 99 04/16/17 15:01 56 14 117/45 (69) 100 04/16/17 15:00 58 14 101/53 (69) 100 04/16/17 14:00 57 9 119/51 (73) 100 04/16/17 14:00 57 04/16/17 13:30 59 10 128/54 (78) 99 Intake & Output 04/17/17 04/17/17 07:00 19:00 Intake Total 988 ml Balance 988 ml Intake IV Total 768 ml Tube Feeding 220 ml Result Diagram: 04/16/1793904/16/17939 Objective Remarks Abd:soft,nt,nd Santoyo catheter irrigated and clots removed. 04/17 Abd:soft,nt,nd Santoyo catheter with david urine Medications and IVs Current Medications Medications (Trade) Dose Ordered Sig/Meme Route Start Time Stop Time Status Last Admin Miscellaneous Information 1 [id number] XX 04/10/17 17:00 04/10/17 17:00 (Chlorhexidine 2% Cloth) Taper DAILY@04 TOP 04/11/17 04:00 04/07/18 03:59 04/15/17 03:40 (Chlorhexidine 2% Cloth) 3 pack UNSCH PRN TOP 04/10/17 17:00 (Leda-Colace) 1 tab BID PO 04/10/17 21:00 04/17/17 10:15 (Milk Of Magnesia Liq) 30 ml Q12H PRN PO 04/10/17 17:00 (Senokot) 17.2 mg Q12H PRN PO 04/10/17 17:00 (Dulcolax Supp) 10 mg DAILY PRN RECTAL 04/10/17 17:00 (Lactulose Liq) 30 ml DAILY PRN PO 04/10/17 17:00 Fentanyl Citrate 250 ml @ 5 mls/hr TITRATE PRN IV 04/10/17 17:15 04/12/17 08:52 Norepinephrine Bitartrate 250 ml @ 7.5 mls/hr TITRATE PRN IV 04/10/17 20:30 04/17/17 06:03 Vasopressin 40 units/Dextrose 100 ml @ 6 mls/hr [id number] IV 04/10/17 23:04 04/16/17 22:36 Midazolam HCl 100 ml @ 2 mls/hr TITRATE PRN IV 04/10/17 23:15 Propofol 100 ml @ 2.55 mls/hr TITRATE PRN IV 04/10/17 23:30 04/16/17 17:44 Sodium Chloride 1,000 ml @ 100 mls/hr Q10H IV 04/11/17 10:45 04/15/17 03:40 (D50w (Vial) Inj) 50 ml UNSCH PRN IV PUSH 04/11/17 10:45 (Glucagon Inj) 1 mg UNSCH PRN OTHER 04/11/17 10:45 (NovoLIN R SUPPLEMENTAL SCALE) 1 Q4H SQ 04/11/17 12:00 04/15/17 03:35 (Levemir Inj) 7 units Q12HR SQ 04/11/17 11:40 04/17/17 09:00 (Senna Liq) 8.8 mg DAILY PO 04/11/17 12:30 04/17/17 10:15 (Oscal-D 250-125) 250 mg Q12HR PO 04/11/17 14:30 04/17/17 10:15 (Fosrenol Chew) 500 mg TID CHEW 04/11/17 18:00 04/17/17 10:15 (Miralax) 17 gm DAILY PO 04/11/17 15:15 04/17/17 10:15 (Reglan Inj) 5 mg Q8HR IV PUSH 04/11/17 22:00 04/17/17 05:51 (Protonix Inj) 40 mg Q24H IV PUSH 04/11/17 16:00 04/16/17 16:35 Aminocaproic Acid 3000 mg/Sodium Chloride 3,012 ml @ 0 mls/hr UNSCH IRRIGATION 04/12/17 10:00 04/16/17 22:32 (Albuterol Neb) 2.5 mg Q2HR NEB PRN NEB 04/13/17 08:30 04/17/17 04:32 (Tears Naturale Opth Soln) 1 drop Q8HR EACH EYE 04/14/17 22:00 04/16/17 09:00 (Reglan Inj) 10 mg Q8HR IV PUSH 04/15/17 22:00 04/17/17 05:51 Ampicillin Sodium/ Sulbactam Sodium 3 gm/Sodium Chloride 100 ml @ 200 mls/hr Q12H IV 04/15/17 21:00 04/17/17 10:16 Miscellaneous Information D/C ICU ELECTROLYTE ORDERS... UNSCH PRN .XX 04/16/17 12:45 Miscellaneous Information ICU - CALL ORDERING PHYSIC... UNSCH PRN .XX 04/16/17 12:45 Potassium Chloride 100 ml @ 25 mls/hr UNSCH PRN IV 04/16/17 12:45 04/16/17 16:42 (K-Lyte Cl Eff) 50 meq UNSCH PRN PO 04/16/17 12:45 Potassium Chloride 100 ml @ 50 mls/hr UNSCH PRN IV 04/16/17 12:45 Magnesium Sulfate 4 gm/Sodium Chloride 108 ml @ 54 mls/hr UNSCH PRN IV 04/16/17 12:45 Magnesium Sulfate 2 gm/Sodium Chloride 104 ml @ 52 mls/hr UNSCH PRN IV 04/16/17 12:45 (Mag-Ox) 800 mg UNSCH PRN PO 04/16/17 12:45 Sodium Phosphate 30 mmol/Sodium Chloride 260 ml @ 43.333 mls/ hr UNSCH PRN IV 04/16/17 12:45 (K-Phos) 2,000 mg UNSCH PRN PO 04/16/17 12:45 Potassium Phosphate 30 mmol/ Sodium Chloride 260 ml @ 43.333 mls/ hr UNSCH PRN IV 04/16/17 12:45 Assessment and Plan Assessment and Plan 72 y.o female with respiratory failure and gross hematuria with ARF Will start Amicar CBI to help stop hematuria Will need to irrigate santoyo Q 4 hours to remove clots Ucx with GNR's. Continue Abx. 04/17 72 y.o female with respiratory failure and gross hematuria with ARF which is improving. Creatinine at 1.5 Titrate CBI to off as urine clears Cystoscopy once stable and off vent Arash Cruz DO Apr 17, 2017 13:04
[2017-04-17] MEDS: ARTIFICIAL TEARS OPTH SOLN 15 ML BTL EACH EYE SCH ×2 (14:00→21:47)
--- NOTE | 2017-04-17 14:13 | HHI.CCPN ---
Subjective Remarks/Hospital Course The patient is a 72-year-old female with multiple medical comorbidities which include hypertension, diabetes mellitus, hyperlipidemia, obstructive sleep apnea on C-PAP machine at home, COPD, CVA with residual left-sided hemiparesis who presented to [facility] ED with altered mental status and emesis. She was last seen normal yesterday. The patient was on non-rebreather mask initially, however, she was intubated with etomidate, succinylcholine and placed on mechanical ventilation. Also she was placed on Versed drip for sedation. ABG post intubation showed acute hypercapnic respiratory failure with a pH of 7.36, CO2 51, pAO2 322, bicarb 28 and saturation 97%. Her laboratory data significant for acute renal failure with a BUN of 91, creatinine 3.65. Lactic acid was 1.9. Also she was found to have leukocytosis with a WBC of 17.1 associated with bandemia of 26. Her urinalysis was positive for leukocyte esterase, moderate blood and many bacteria. Chest x-ray post intubation showed ET tube above the kimber[place], questionable elevation of right hemidiaphragm with subsegmental atelectasis. In the ER she is currently receiving a second liter of IV fluids and received cefepime and vancomycin. A Cuellar was placed in the ER and post placement the patient noted to have hematuria. to her altered mental status she was scheduled to undergo CT scan of the brain without contrast. Of note the patient was on Eliquis for a history of paroxysmal atrial fibrillation. Also a CT scan of the thorax, abdomen, pelvis without contrast were ordered by the ED physician. Most of the history was obtained from reviewing medical records as the patient is intubated and no family members present at the bedside 04/11 Patient became hypotensive overnight started on Levophed 15 mics and Vasopressin. Sedated with fentanyl, Diprivan and intubated. Afebrile. BC from yesterday GPC. 04/12: Currently afebrile. Currently on norepinephrine at 6 mcg/m and vasopressin 0.04 units per minute sedated on the ventilator and propofol and fentanyl drips. Currently undergoing small bowel follow-through. 04/13: Currently on propofol at 9 mcg/kg per minute. Off fentanyl drip. Small bowel follow-through revealed transition to colon at 4 hours. No signs of bowel obstruction. Small bowel is mildly dilatated. Creatinine currently 2.1. Edematous. Vasopressor requirements decreasing. Subjective 04/14: Afebrile. Currently on propofol; at 10 g per kilogram per minute. Positive BM. Creatinine Is currently at baseline 1.8. Abdominal x-ray pending 04/15 Remains intubated sedated with propofol. Intermittently follows commands. KUB shows gaseous distention. WBC increased to 28.5 creatinine improving 04/16: Patient remains septic remains on Levophed and vasopressin. Intermittently follows commands with the right upper extremity. WBC count is slightly improved. UO adequate. Failed CPAP trial 04/17: Remains in septic shock on vasopressin unable to wean off. Failed CPAP trials again today. Labs ordered for tomorrow. Appreciate urology reevaluation. Wean to DC Amicar CBI Objective Vital Signs Date Time Temp Pulse Resp B/P (MAP) Pulse Ox O2 Delivery O2 Flow Rate FiO2 04/17/17 11:54 100 40 04/17/17 06:03 68 118/47 04/17/17 04:00 98.0 14 Intake and Output 04/17/17 04/17/17 04/17/17 07:59 15:59 23:59 Intake Total 988 ml Balance 988 ml Result Diagram: 04/16/17 0940 04/16/17 0940 Imaging Last Impressions Chest X-Ray 04/13/17 0600 Signed Impressions: Service Date/Time: Thursday, April 13, 2017 04:03 - CONCLUSION: Worsening bilateral pulmonary infiltrates. Anthony Duncan Jr., MD Abdomen X-Ray 04/13/17 0600 Signed Impressions: Service Date/Time: Thursday, April 13, 2017 04:10 - CONCLUSION: Unchanged dilated small bowel. Oral contrast reaches the rectal vault. Anthony Duncan Jr., MD Small Bowel X-Ray 04/12/17 0000 Signed Impressions: Service Date/Time: Wednesday, April 12, 2017 14:36 - CONCLUSION: 1. Mild small bowel dilatation without obstruction. Contrast reaches distal colon by 4 hours. Abrahan Gómez MD Head CT 04/10/17 1648 Signed Impressions: Service Date/Time: Monday, April 10, 2017 17:11 - CONCLUSION: 1. No acute intracranial abnormality or significant interval change. Daniel Carvajal MD Abdomen/Pelvis CT 04/10/17 1625 Signed Impressions: Service Date/Time: Monday, April 10, 2017 17:15 - CONCLUSION: Mild fluid and gaseous distention of small bowel, mainly the proximal small bowel. No acute focal findings in the abdomen or pelvis on noncontrast evaluation. King Shi MD Chest CT 04/10/17 0000 Signed Impressions: Service Date/Time: Monday, April 10, 2017 17:15 - CONCLUSION: 1. ETT just above the kimberlyn. 2. Dense right lower lobe airspace consolidation with diffuse patchy nodular airspace disease throughout the remainder of the right lung and at the extreme left lung base. Findings are most consistent with pneumonia, atypical infection or aspiration. 3. No significant effusion or pneumothorax. Daniel Carvajal MD Objective Remarks GENERAL: Patient is 72 yo critically ill orotracheally intubated SKIN: Warm and dry. Decubitus ulcer bilateral gluteal. Stage II. HEAD: Normocephalic. EYES: No scleral icterus. No injection or drainage. NECK: Supple, trachea midline. No JVD or lymphadenopathy. CARDIOVASCULAR: Regular rate and rhythm currently. S1, S2 no S4. Without murmurs, gallops, or rubs. RESPIRATORY: Breath sounds equal bilaterally. No accessory muscle use. Bilateral rhonchi GASTROINTESTINAL: Abdomen soft, non-tender, obese. No bowel sounds are appreciated : Cuellar in place with urine clearing MUSCULOSKELETAL: +2 edema. Neuro: Arousable on the ventilator. Opens eyes to stimulation. Moves all 4 extremities spontaneously but weaker on L side. Follows command weekly on the right upper extremity Date of Insertion: Apr 10, 2017 Line: Central Venous Catheter Side: Right Location: Subclavian A/P Assessment and Plan Neuro/Psych: Metabolic encephalopathy secondary to sepsis History of CVA with left-sided weakness Patient is currently on propofol at 20 g per minute for sedation/analgesia while intubated Fentanyl drip currently on hold due to small bowel dilatation Goal of RA SS -2. Daily sedation vacation 04/10 -CT brain without contrast: No acute abnormalities. Pulm : Acute respiratory failure secondary to pneumonia/E Coli LAXMI COPD Continue with vent support and maintain sats above 92%. Ventilator bundle, PRVC 14/500/1/5/40, Daily SBT. Continues to fail weaning trial due to tachypnea respiratory distress Albuterol/ipratropium aerosols every 6 hours with albuterol aerosols every 2 hours as needed for dyspnea Chest x-ray revealed bilateral persistent infiltrates, repeat am CT chest: Dense RLL airspace consolidation with diffuse patchy nodular airspace disease throughout the remainder of the right lung and at the extreme left lung base. Findings are most consistent with pneumonia, CV: Septic shock History of paroxysmal atrial fibrillation currently normal sinus rhythm Hypertension Dyslipidemia Currently on vasopressin 0.04 units per minute goal keep MAP> 65 mmHg. Off maintenance fluid. Echo: EF 55-60%. Lactic acid: 1.9 DC vasopressin if map remains above 65, currently off Levophed Renal/FEN/: Hematuria Hypocalcemia Hypopotassemia Hyponatremia Hypophosphatemia Monitor renal function, I/O's and avoid nephrotoxins Renal and Urology consulted. Creatinine improving. On continuous bladder irrigations with Amicar. Wean to DC per Dr. Cruz GI: Small bowel dilatation On Protonix 40 mg IV daily for GI prophylaxis. Small bowel follow-through - mild dilatation of small bowel however contrast does transition to: Within 4 hours. KUB - small bowel dilatation. Contrast rectum. Repeat 04/[address] abd/pelvis possible small bowel obstruction. GI following. Nepro advance as tolerated ID: Enterococcus faecalis bacteremia Proteus UTI Escherichia coli pneumonia Continue with abx ( Unasyn) Monitor for signs infections (fever and WBC) Pharmacy to adjust doses of abx per renal function. 04/10 blood cultures Enterococcus faecalis 3/ bottles. Check BC x 2 sets 04/10. 04/11 blood cultures no growth 04/10 UA positive Proteus 04/11 - sputum -Escherichia coli Influenza screening, strep pneumonia and Legionella urinary Ag negative. Follow up on urine cx, check sputum cx Wound care is following for sacral wound ulcers. Endo: Diabetes mellitus Continue SSI to medium scale with Accu-Chek q.4h for glycemic control. Continue detemir 7units BID Heme: Leukocytosis Normocytic anemia Monitor CBC and coags. MSK: Decubitus ulcer Santyl barrier cream twice a day. Wound care consulted GI prophylaxis with pantoprazole 40 mg daily and DVT prophylaxis with SCDs Not on chemical anticoagulation prophylaxis due to hematuria Will start today 04/17/71, if no hematuria Lines: Right subclavian CVL, Right radial Art line placed 04/10-DC 04/17 Patient is critically ill with septic shock, resp failure, ARF, pneumonia, UTI CCT 30 mins Elmo Malik MD Apr 17, 2017 14:12
--- NOTE | 2017-04-17 17:03 | HHI.NPPN ---
Subjective History of Present Illness 72-year-old female known to me from her last admission when she was admitted in October of this year with past medical history of hypertension, diabetes mellitus, chronic kidney disease, history of cerebrovascular accident, hyperlipidemia, sleep apnea, atrial fibrillation, was admitted with altered mental status. I was called to see the patient because of elevated BUN and creatinine. I saw her when she was here in October and at that time her creatinine was as high as 2.8 and then it improved to around 1.4-1.6, which is probably her baseline. Additional Remarks Patient remain on the vent, sedated, and unresponsive, clinically same. Review of Systems General General Remarks Intubated and sedated. Objective Data Data Vital Signs Date Time Temp Pulse Resp B/P (MAP) Pulse Ox O2 Delivery O2 Flow Rate FiO2 04/17/17 16:43 93 40 04/17/17 11:54 100 40 04/17/17 08:45 100 40 04/17/17 06:03 68 118/47 04/17/17 06:00 60 04/17/17 04:19 100 40 04/17/17 04:00 60 04/17/17 04:00 98.0 64 14 105/98 (100) 98 04/17/17 02:00 60 04/17/17 00:50 100 40 04/17/17 00:00 40 04/17/17 00:00 97.0 60 15 107/52 (70) 100 04/17/17 00:00 60 04/16/17 22:36 59 116/48 04/16/17 22:00 64 04/16/17 21:42 100 40 04/16/17 20:00 40 04/16/17 20:00 97.8 62 15 107/48 (67) 98 04/16/17 20:00 58 04/16/17 18:00 59 -: 04/16/17 0940 04/16/17 0940 Physical Exam General Appearance Remarks Intubated and sedated. Eyes Eye Exam: Pupils Equal Throat Throat Exam: Oral Mucosa [place] & Moist Neck Neck Exam: Neck Supple Pulmonary Resp Exam: Rhonchi, Decreased Bases, Diminished Breath Sounds, Poor Inspiratory Effort Cardiology CV Exam: Regular, Normal Sinus Rhythm Gastrointestinal/Abdomen GI Exam: Soft, Non-Tender, Bowel Sounds Present, Distended Extremeties Extremities Exam: Moderate Edema, Pitting Edema Neurologic Neuro Exam: Sedated Assessment/Plan Assessment Summary: HIRAM/Acute Renal Failure, Hypotension, CKD Stage III Problem List: (1) Dyspnea ICD Codes: R06.00 - Dyspnea, unspecified Status: Acute (2) Diabetes mellitus ICD Codes: E11.9 - Type 2 diabetes mellitus without complications Status: Chronic (3) Leukocytosis ICD Codes: D72.829 - Elevated white blood cell count, unspecified Status: Resolved (4) Encephalopathy ICD Codes: G93.40 - Encephalopathy, unspecified Status: Acute (5) Pneumonia ICD Codes: J18.9 - Pneumonia, unspecified organism Status: Acute (6) Acute respiratory failure ICD Codes: J96.00 - Acute respiratory failure, unspecified whether with hypoxia or hypercapnia Status: Acute (7) Anemia ICD Codes: D64.9 - Anemia, unspecified Status: Acute (8) Sepsis ICD Codes: A41.9 - Sepsis, unspecified organism Status: Resolved (9) UTI (urinary tract infection) ICD Codes: N39.0 - Urinary tract infection, site not specified Status: Resolved (10) Acute renal failure ICD Codes: N17.9 - Acute kidney failure, unspecified Status: Acute (11) Acute worsening of stage 3 chronic kidney disease ICD Codes: N18.3 - Chronic kidney disease, stage 3 (moderate) Status: Acute Plan Patient has chronic kidney disease. The baseline Creatinine is 1.7-1.8. Now develop HIRAM, possibly related to Hypotension and ATN. Has sepsis and UTI, BP is low, on pressors. Has hematuria, and the urine is getting more clear.. Creatinine was stable now 1.5, No new BMP today. Continue antibiotics.Avoid Nephrotoxins. Follow the Vanco. level. Continue IVF and antibiotics. Follow the urine out put and BMP. Problem Qualifiers (1) Pneumonia: Qualified Codes: J18.9 - Pneumonia, unspecified organism (2) Acute respiratory failure: Qualified Codes: J96.00 - Acute respiratory failure, unspecified whether with hypoxia or hypercapnia (3) Anemia: Qualified Codes: D64.9 - Anemia, unspecified (4) Sepsis: Qualified Codes: A41.9 - Sepsis, unspecified organism (5) UTI (urinary tract infection): Qualified Codes: N39.0 - Urinary tract infection, site not specified (6) Acute renal failure: Qualified Codes: N17.9 - Acute kidney failure, unspecified Jumani,Pb Q. MD Apr 17, 2017 17:03
[2017-04-17] MEDS: PANTOPRAZOLE SODIUM 40 MG VIAL IV PUSH SCH (17:37)
--- NOTE | 2017-04-17 20:04 | HHI.PR ---
Addendum to Inpatient Note Additional Information Pt seen around 1700 today full note to follow Vicki Ying MD Apr 17, 2017 20:04
[2017-04-17] MEDS: HEPARIN SODIUM - SQ 10,000 UNITS/ML VIAL SQ SCH (21:46)
--- NOTE | 2017-04-17 22:14 | HHI.IDPN ---
Subjective Subjective Remarks Pt remains on pressors she is afebrile remains on vent, on CPAP cont to have diarrhea , all stool studies are negative she is hypothermic today Antibiotics unasyn Allergies: Coded Allergies: *MDRO Multi-Drug Resistant Organism (Verified Adverse Reaction, Unknown, ) MRSA PCR Screen POSITIVE - 10/24/2016 MRSA (sputum)-10/24/16 Objective . Vital Signs Date Time Temp Pulse Resp B/P (MAP) Pulse Ox O2 Delivery O2 Flow Rate FiO2 04/17/17 20:38 96 40 04/17/17 16:43 93 40 04/17/17 16:00 40 04/17/17 16:00 97.2 65 14 105/53 (70) 100 117/54 (75) 04/17/17 12:00 40 04/17/17 12:00 96.7 65 14 105/53 (70) 100 117/54 (75) 04/17/17 12:00 96.7 124/59 (80) 119/50 (73) 04/17/17 12:00 40 04/17/17 11:54 100 40 04/17/17 08:45 100 40 04/17/17 08:00 40 04/17/17 08:00 97.5 60 12 119/50 (73) 100 124/59 (80) 04/17/17 08:00 60 04/17/17 06:03 68 118/47 04/17/17 06:00 60 04/17/17 04:19 100 40 04/17/17 04:00 60 04/17/17 04:00 98.0 64 14 105/98 (100) 98 04/17/17 02:00 60 04/17/17 00:50 100 40 04/17/17 00:00 40 04/17/17 00:00 97.0 60 15 107/52 (70) 100 04/17/17 00:00 60 04/16/17 22:36 59 116/48 04/17/17 04/17/17 04/18/17 15:00 23:00 07:00 Intake Total 466 ml Output Total 400 ml Balance 66 ml Intake IV Total 236 ml Tube Feeding 230 ml Output Urine Total 400 ml . Laboratory Tests Test 04/16/17 09:40 White Blood Count 25.7 TH/MM3 Red Blood Count 2.84 MIL/MM3 Hemoglobin 8.0 GM/DL Hematocrit 24.7 % Mean Corpuscular Volume 86.7 FL Mean Corpuscular Hemoglobin 28.2 PG Mean Corpuscular Hemoglobin Concent 32.6 % Red Cell Distribution Width 19.5 % Platelet Count 267 TH/MM3 Mean Platelet Volume 9.4 FL Neutrophils (%) (Auto) 84.8 % Lymphocytes (%) (Auto) 11.5 % Monocytes (%) (Auto) 1.7 % Eosinophils (%) (Auto) 1.8 % Basophils (%) (Auto) 0.2 % Neutrophils # (Auto) 21.8 TH/MM3 Lymphocytes # (Auto) 3.0 TH/MM3 Monocytes # (Auto) 0.4 TH/MM3 Eosinophils # (Auto) 0.5 TH/MM3 Basophils # (Auto) 0.1 TH/MM3 CBC Comment AUTO DIFF Differential Total Cells Counted 100 Neutrophils % (Manual) 86 % Band Neutrophils % 4 % Lymphocytes % 10 % Neutrophils # (Manual) 23.1 TH/MM3 Differential Comment FINAL DIFF MANUAL Platelet Estimate NORMAL Platelet Morphology Comment NORMAL Laboratory Tests Test 04/16/17 09:40 Blood Urea Nitrogen 43 MG/DL Creatinine 1.50 MG/DL Random Glucose 114 MG/DL Total Protein 5.7 GM/DL Albumin 1.5 GM/DL Calcium Level 7.4 MG/DL Phosphorus Level 4.0 MG/DL Magnesium Level 2.1 MG/DL Alkaline Phosphatase 406 U/L Aspartate Amino Transf (AST/SGOT) 37 U/L Alanine Aminotransferase (ALT/SGPT) 11 U/L Total Bilirubin 0.9 MG/DL Sodium Level 130 MEQ/L Potassium Level 3.1 MEQ/L Chloride Level 96 MEQ/L Carbon Dioxide Level 22.7 MEQ/L Anion Gap 11 MEQ/L Estimat Glomerular Filtration Rate 34 ML/MIN Protein Corrected Calcium 8.2 MG/DL Imaging Last Impressions Abdomen X-Ray 04/15/17 1405 Signed Impressions: Service Date/Time: Saturday, April 15, 2017 15:15 - CONCLUSION: 1. Gaseous distension predominantly small bowel as described above. 2. Nasogastric tube does have the stomach decompressed. Everardo Martinez MD FACR Chest X-Ray 04/15/17 1400 Signed Impressions: Service Date/Time: Saturday, April 15, 2017 15:10 - CONCLUSION: 1. Support equipment in satisfactory position. 2. Continued bilateral infiltrates unchanged from previous. Kerwin Martinez MD Small Bowel X-Ray 04/12/17 0000 Signed Impressions: Service Date/Time: Wednesday, April 12, 2017 14:36 - CONCLUSION: 1. Mild small bowel dilatation without obstruction. Contrast reaches distal colon by 4 hours. Abrahan Gómez MD Head CT 04/10/17 1648 Signed Impressions: Service Date/Time: Monday, April 10, 2017 17:11 - CONCLUSION: 1. No acute intracranial abnormality or significant interval change. Daniel Carvajal MD Abdomen/Pelvis CT 04/10/17 1625 Signed Impressions: Service Date/Time: Monday, April 10, 2017 17:15 - CONCLUSION: Mild fluid and gaseous distention of small bowel, mainly the proximal small bowel. No acute focal findings in the abdomen or pelvis on noncontrast evaluation. King Shi MD Chest CT 04/10/17 0000 Signed Impressions: Service Date/Time: Monday, April 10, 2017 17:15 - CONCLUSION: 1. ETT just above the [place]. 2. Dense right lower lobe airspace consolidation with diffuse patchy nodular airspace disease throughout the remainder of the right lung and at the extreme left lung base. Findings are most consistent with pneumonia, atypical infection or aspiration. 3. No significant effusion or pneumothorax. Daniel Carvajal MD Physical Exam CONSTITUTIONAL/GENERAL: This is a morbidly obese patient, in no apparent distress. Int'd on mech vent'n TUBES/LINES/DRAINS: SKIN: No jaundice, rashes, or lesions. Skin temperature appropriate. Not diaphoretic. CARDIOVASCULAR: Regular rate and rhythm without murmurs, gallops, or rubs. No JVD. Peripheral pulses symmetric. RESPIRATORY/CHEST: Symmetric, unlabored respirations. Clear to auscultation. Breath sounds equal bilaterally. No wheezes, rales, or rhonchi. GASTROINTESTINAL: Abdomen soft, non-tender, lmoderately distended. Less tympanic in mid abdomen No hepato-splenomegaly, or palpable masses. No guarding. Bowel sounds present. GENITOURINARY: Without palpable bladder distension. Cuellar catheter in place; urine markedly cleared up , light pinkish MUSCULOSKELETAL: Extremities without clubbing, cyanosis, + edema persists NEUROLOGICAL: sedated PSYCHIATRIC: Unable to assess Assessment & Plan Remarks Assessment and Plan sepsis UTI, Proteus Gross hematuria: resolving Acute VDRF ARF: improving ? PNA - sputum with E.coli Enterococcal high grade bacteremia - S to ampicillin - 2 D echo negative for vegetation - repeat blood clx negative Ileus, now having diarrhea no e/o small bowel obstruction - C.diff negative enteric pathogens negative Critically ill, unstable persistent leukocytosis - better Hypothermic - new ? sepsis Rec's: cont unasyn monitor WBC chk blood clx monitor temps rechk sputum clc, UA/C+S dw RN Vicki Ying MD Apr 17, 2017 22:14
[2017-04-18] VITALS (17 sets, daily range): BP systolic 100–141; BP diastolic 52–60; PULSE 72–99; RESP 12–19; TEMP 97.6–98.4; O2SAT 97–100
[2017-04-18] MEDS: CHLORHEXIDINE GLUCONATE 2 % 1 PACK (2 CLOTHS) TOP SCH (04:00)
[2017-04-18] MEDS: INSULIN NovoLIN REGULAR SUPPLEMENTAL SCALE SQ SCH ×6 (04:00→20:00)
--- NOTE | 2017-04-18 04:58 | RADRPT ---
EXAM DATE/TIME: 04/18/2017 03:56 [facility] COMPARISON: CHEST SINGLE AP, April 15, 2017, 15:10. INDICATIONS : Shortness of breath, possible pulmonary disease. MEDICAL HISTORY : Hypertension. Diabetes mellitus type II. Hernia SURGICAL HISTORY : Appendectomy. Cholecystectomy. ENCOUNTER: Subsequent ACUITY: 1 week PAIN SCORE: Non-responsive. LOCATION: Bilateral chest FINDINGS: Endotracheal tube tip is present 3-4 cm above the kimber[place]. Nasogastric tube is in the stomach. Right-s ided central line is stable in good position. There has been slight interval decrease in confluence o f bilateral infiltrates. Cardiac contours are grossly stable. CONCLUSION: Slight improvement in aeration. King Shi MD on April 18, 2017 at 4:56 Board Certified Radiologist. This report was verified electronically.
[2017-04-18] MEDS: ARTIFICIAL TEARS OPTH SOLN 15 ML BTL EACH EYE SCH ×3 (05:16→22:17)
[2017-04-18] MEDS: METOCLOPRAMIDE HCL 10 MG/2 ML VIAL IV PUSH SCH ×3 (05:16→22:23)
[2017-04-18 06:45] LABS: AUTOMATED NEUTROPHIL # 21.3 TH/MM3 (1.8-7.7); BASOPHIL % 0.1 % (0.0-2.0); EOSINOPHIL # 0.1 TH/MM3 (0-0.4); EOSINOPHIL % 0.2 % (0.0-4.0); LYMPH % 13.5 % (9.0-44.0); LYMPHOCYTE # 3.4 TH/MM3 (1.0-4.8); MEAN CELL VOLUME 87.4 FL (80.0-100.0); MEAN CORPUSCULAR HEMOGLOBIN 27.3 PG (27.0-34.0); MEAN CORPUSCULAR HGB CONC 31.3 % (32.0-36.0); MONO % 2.5 % (0.0-8.0); NEUT % 83.7 % (16.0-70.0); PLATELET COUNT 223 TH/MM3 (150-450); RED BLOOD COUNT 2.75 MIL/MM3 (4.00-5.30); RED CELL DISTRIBUTION WIDTH 19.7 % (11.6-17.2); WHITE BLOOD COUNT 25.4 TH/MM3 (4.0-11.0)
[2017-04-18 06:47] LABS: HEMO FLAGS AUTO DIFF
[2017-04-18 07:42] LABS: ALKALINE PHOSPHATASE 571 U/L (45-117); ALT (GPT) 20 U/L (10-53); ANION GAP 10 MEQ/L (5-15); AST (GOT) 63 U/L (15-37); BLOOD UREA NITROGEN 44 MG/DL (7-18); CHLORIDE 96 MEQ/L (98-107); GLOMERULAR FILTRATION RATE 33 ML/MIN (>89); SODIUM (NA) 129 MEQ/L (136-145); TOTAL BILIRUBIN ADULT 0.7 MG/DL (0.2-1.0)
[2017-04-18 08:26] LABS: BANDS 1 % (0-6); BASOPHILS 1 % (0-2); METAMYELOCYTES 2 % (0-1); NEUTROPHIL # MANUAL DIFF 22.9 TH/MM3 (1.8-7.7); POLYS (SEG NEUTROPHILS) 87 % (16-70); WBC DIFF SAMPLE 100
[2017-04-18 08:27] LABS: PLATELET ESTIMATE SMEAR NORMAL (NORMAL); PLATELET MORPHOLOGY ENLARGED (NORMAL); SCAN/DIFF FINAL DIFF MANUAL
[2017-04-18] MEDS: RESP: ALBUTEROL 2.5 MG/3 ML NEB (PRN) NEB (08:38)
[2017-04-18] MEDS: AMPICILLIN-SULBACTAM INJ 3 GM in SODIUM CHLORIDE 0.9% INJ 100 ML IV SCH ×2 (09:00→21:47)
[2017-04-18] MEDS: INSULIN DETEMIR 100 UNITS/ML VIAL SQ SCH ×2 (09:00→21:00)
[2017-04-18] MEDS: LANTHANUM CARBONATE 500 MG CHEWABLE TABLET CHEW SCH ×3 (09:00→18:00)
[2017-04-18] MEDS: SENNOSIDES SYRUP 8.8 MG/5 ML CUP PO SCH (09:13)
[2017-04-18] MEDS: POLYETHYLENE GLYCOL 17 GM PKG PO SCH (09:15)
[2017-04-18] MEDS: CALCIUM/VITAMIN D 250 MG/125 U TAB PO SCH ×2 (09:16→21:44)
[2017-04-18] MEDS: HEPARIN SODIUM - SQ 10,000 UNITS/ML VIAL SQ SCH (09:16)
[2017-04-18] MEDS: DOCUSATE SODIUM 50 MG/SENNA 8.6 MG TAB PO SCH ×2 (09:16→21:44)
--- NOTE | 2017-04-18 10:19 | HHI.NPPN ---
Subjective History of Present Illness 72-year-old female known to me from her last admission when she was admitted in October of this year with past medical history of hypertension, diabetes mellitus, chronic kidney disease, history of cerebrovascular accident, hyperlipidemia, sleep apnea, atrial fibrillation, was admitted with altered mental status. I was called to see the patient because of elevated BUN and creatinine. I saw her when she was here in October and at that time her creatinine was as high as 2.8 and then it improved to around 1.4-1.6, which is probably her baseline. Additional Remarks Patient remain on the vent, sedated, and unresponsive, again has hematuria. Review of Systems General General Remarks Intubated and sedated. Objective Data Data Vital Signs Date Time Temp Pulse Resp B/P (MAP) Pulse Ox O2 Delivery O2 Flow Rate FiO2 04/18/17 08:33 40 04/18/17 08:22 97 40 04/18/17 08:00 84 04/18/17 06:00 81 04/18/17 04:00 80 04/18/17 04:00 98.0 80 16 141/60 (87) 100 04/18/17 04:00 40 04/18/17 03:59 100 40 04/18/17 02:00 75 04/18/17 00:13 100 40 04/18/17 00:00 81 04/18/17 00:00 98.0 81 15 116/56 (76) 100 04/18/17 00:00 40 04/17/17 22:00 81 04/17/17 20:38 96 40 04/17/17 20:00 87 04/17/17 20:00 40 04/17/17 20:00 98.0 87 22 93/54 (67) 97 Arterial Line 04/17/17 16:43 93 40 04/17/17 16:00 40 04/17/17 16:00 97.2 65 14 105/53 (70) 100 117/54 (75) 04/17/17 12:00 40 04/17/17 12:00 96.7 65 14 105/53 (70) 100 117/54 (75) 04/17/17 12:00 96.7 124/59 (80) 119/50 (73) 04/17/17 12:00 40 04/17/17 11:54 100 40 -: 04/18/17 0510 04/18/17 0510 Microbiology 04/18/17 Aerobic Blood Culture, Received Pending 04/18/17 Anaerobic Blood Culture, Received Pending 04/18/17 Aerobic Blood Culture, Received Pending 04/18/17 Anaerobic Blood Culture, Received Pending Physical Exam General Appearance Remarks Intubated and sedated. Eyes Eye Exam: Pupils Equal Throat Throat Exam: Oral Mucosa [place] & Moist Neck Neck Exam: Neck Supple Pulmonary Resp Exam: Rhonchi, Decreased Bases, Diminished Breath Sounds, Poor Inspiratory Effort Cardiology CV Exam: Regular, Normal Sinus Rhythm Gastrointestinal/Abdomen GI Exam: Soft, Non-Tender, Bowel Sounds Present, Distended Extremeties Extremities Exam: Moderate Edema, Pitting Edema Neurologic Neuro Exam: Sedated Assessment/Plan Assessment Summary: HIRAM/Acute Renal Failure, Hypotension, CKD Stage III Problem List: (1) Dyspnea ICD Codes: R06.00 - Dyspnea, unspecified Status: Acute (2) Diabetes mellitus ICD Codes: E11.9 - Type 2 diabetes mellitus without complications Status: Chronic (3) Leukocytosis ICD Codes: D72.829 - Elevated white blood cell count, unspecified Status: Resolved (4) Encephalopathy ICD Codes: G93.40 - Encephalopathy, unspecified Status: Acute (5) Pneumonia ICD Codes: J18.9 - Pneumonia, unspecified organism Status: Acute (6) Acute respiratory failure ICD Codes: J96.00 - Acute respiratory failure, unspecified whether with hypoxia or hypercapnia Status: Acute (7) Anemia ICD Codes: D64.9 - Anemia, unspecified Status: Acute (8) Sepsis ICD Codes: A41.9 - Sepsis, unspecified organism Status: Resolved (9) UTI (urinary tract infection) ICD Codes: N39.0 - Urinary tract infection, site not specified Status: Resolved (10) Acute renal failure ICD Codes: N17.9 - Acute kidney failure, unspecified Status: Acute (11) Acute worsening of stage 3 chronic kidney disease ICD Codes: N18.3 - Chronic kidney disease, stage 3 (moderate) Status: Acute Plan Patient has chronic kidney disease. The baseline Creatinine is 1.7-1.8. Now develop HIRAM, possibly related to Hypotension and ATN. Has sepsis and UTI, BP is low, on pressors. Has hematuria, and the urine is getting more clear.. Creatinine was stable now 1.5,same. Continue antibiotics.Avoid Nephrotoxins. Follow the Vanco. level. Continue IVF and antibiotics. Has hematuria again, urology following. Follow the urine out put and BMP. Problem Qualifiers (1) Pneumonia: Qualified Codes: J18.9 - Pneumonia, unspecified organism (2) Acute respiratory failure: Qualified Codes: J96.00 - Acute respiratory failure, unspecified whether with hypoxia or hypercapnia (3) Anemia: Qualified Codes: D64.9 - Anemia, unspecified (4) Sepsis: Qualified Codes: A41.9 - Sepsis, unspecified organism (5) UTI (urinary tract infection): Qualified Codes: N39.0 - Urinary tract infection, site not specified (6) Acute renal failure: Qualified Codes: N17.9 - Acute kidney failure, unspecified Bree Dill MD Apr 18, 2017 10:19
--- NOTE | 2017-04-18 12:33 | HHI.PR ---
Subjective Patient symptoms today Pt seen and examined. Pt now not with 3way santoyo but a 16F regular catheter. Santoyo catheter now has clotted off. Pt also was started on SQ heparin. Now on hold. Objective Vital Signs Vital Signs Date Time Temp Pulse Resp B/P (MAP) Pulse Ox O2 Delivery O2 Flow Rate FiO2 04/18/17 11:12 99 40 04/18/17 08:33 40 04/18/17 08:22 97 40 04/18/17 08:00 84 04/18/17 06:00 81 04/18/17 04:00 80 04/18/17 04:00 98.0 80 16 141/60 (87) 100 04/18/17 04:00 40 04/18/17 03:59 100 40 04/18/17 02:00 75 04/18/17 00:13 100 40 04/18/17 00:00 81 04/18/17 00:00 98.0 81 15 116/56 (76) 100 04/18/17 00:00 40 04/17/17 22:00 81 04/17/17 20:38 96 40 04/17/17 20:00 87 04/17/17 20:00 40 04/17/17 20:00 98.0 87 22 93/54 (67) 97 Arterial Line 04/17/17 16:43 93 40 04/17/17 16:00 40 04/17/17 16:00 97.2 65 14 105/53 (70) 100 117/54 (75) Intake & Output 04/18/17 04/18/17 06:59 18:59 Intake Total 826 ml Output Total 250 ml Balance 576 ml Intake IV Total 225 ml Tube Feeding 541 ml Other 60 ml Output Urine Total 200 ml Stool Total 50 ml Result Diagram: 04/18/17 0510 04/18/17 0510 Imaging Last 24 hours Impressions Chest X-Ray 04/18/17 0600 Signed Impressions: Service Date/Time: April 03:56 - CONCLUSION: Slight improvement in aeration. King Shi MD Objective Remarks Abd:soft,nt,nd Santoyo catheter irrigated and clots removed. 04/17 Abd:soft,nt,nd Santoyo catheter with david urine 04/18 Abd:soft,nt,nd Santoyo: attempted to irrigate santoyo at bedside but clotted off. Will need large bore 3way catheter. Medications and IVs Current Medications Medications (Trade) Dose Ordered Sig/Meme Route Start Time Stop Time Status Last Admin Miscellaneous Information 1 [id number] XX 04/10/17 17:00 04/10/17 17:00 (Chlorhexidine 2% Cloth) Taper DAILY@04 TOP 04/11/17 04:00 04/07/18 03:59 04/15/17 03:40 (Chlorhexidine 2% Cloth) 3 pack UNSCH PRN TOP 04/10/17 17:00 (Leda-Colace) 1 tab BID PO 04/10/17 21:00 04/18/17 09:16 (Milk Of Magnesia Liq) 30 ml Q12H PRN PO 04/10/17 17:00 (Senokot) 17.2 mg Q12H PRN PO 04/10/17 17:00 (Dulcolax Supp) 10 mg DAILY PRN RECTAL 04/10/17 17:00 (Lactulose Liq) 30 ml DAILY PRN PO 04/10/17 17:00 Fentanyl Citrate 250 ml @ 5 mls/hr TITRATE PRN IV 04/10/17 17:15 04/12/17 08:52 Norepinephrine Bitartrate 250 ml @ 7.5 mls/hr TITRATE PRN IV 04/10/17 20:30 04/17/17 06:03 Vasopressin 40 units/Dextrose 100 ml @ 6 mls/hr [id number] IV 04/10/17 23:04 04/16/17 22:36 Midazolam HCl 100 ml @ 2 mls/hr TITRATE PRN IV 04/10/17 23:15 Propofol 100 ml @ 2.55 mls/hr TITRATE PRN IV 04/10/17 23:30 04/16/17 17:44 Sodium Chloride 1,000 ml @ 100 mls/hr Q10H IV 04/11/17 10:45 04/15/17 03:40 (D50w (Vial) Inj) 50 ml UNSCH PRN IV PUSH 04/11/17 10:45 (Glucagon Inj) 1 mg UNSCH PRN OTHER 04/11/17 10:45 (NovoLIN R SUPPLEMENTAL SCALE) 1 Q4H SQ 04/11/17 12:00 04/15/17 03:35 (Levemir Inj) 7 units Q12HR SQ 04/11/17 11:40 04/17/17 09:00 (Senna Liq) 8.8 mg DAILY PO 04/11/17 12:30 04/18/17 09:13 (Oscal-D 250-125) 250 mg Q12HR PO 04/11/17 14:30 04/18/17 09:16 (Fosrenol Chew) 500 mg TID CHEW 04/11/17 18:00 04/18/17 09:00 (Miralax) 17 gm DAILY PO 04/11/17 15:15 04/18/17 09:15 (Reglan Inj) 5 mg Q8HR IV PUSH 04/11/17 22:00 04/18/17 05:16 (Protonix Inj) 40 mg Q24H IV PUSH 04/11/17 16:00 04/17/17 17:37 Aminocaproic Acid 3000 mg/Sodium Chloride 3,012 ml @ 0 mls/hr UNSCH IRRIGATION 04/12/17 10:00 04/16/17 22:32 (Albuterol Neb) 2.5 mg Q2HR NEB PRN NEB 04/13/17 08:30 04/18/17 08:38 (Tears Naturale Opth Soln) 1 drop Q8HR EACH EYE 04/14/17 22:00 04/18/17 05:16 Ampicillin Sodium/ Sulbactam Sodium 3 gm/Sodium Chloride 100 ml @ 200 mls/hr Q12H IV 04/15/17 21:00 04/18/17 09:00 Miscellaneous Information D/C ICU ELECTROLYTE ORDERS... UNSCH PRN .XX 04/16/17 12:45 Miscellaneous Information ICU - CALL ORDERING PHYSIC... UNSCH PRN .XX 04/16/17 12:45 Potassium Chloride 100 ml @ 25 mls/hr UNSCH PRN IV 04/16/17 12:45 04/16/17 16:42 (K-Lyte Cl Eff) 50 meq UNSCH PRN PO 04/16/17 12:45 Potassium Chloride 100 ml @ 50 mls/hr UNSCH PRN IV 04/16/17 12:45 Magnesium Sulfate 4 gm/Sodium Chloride 108 ml @ 54 mls/hr UNSCH PRN IV 04/16/17 12:45 Magnesium Sulfate 2 gm/Sodium Chloride 104 ml @ 52 mls/hr UNSCH PRN IV 04/16/17 12:45 (Mag-Ox) 800 mg UNSCH PRN PO 04/16/17 12:45 Sodium Phosphate 30 mmol/Sodium Chloride 260 ml @ 43.333 mls/ hr UNSCH PRN IV 04/16/17 12:45 (K-Phos) 2,000 mg UNSCH PRN PO 04/16/17 12:45 Potassium Phosphate 30 mmol/ Sodium Chloride 260 ml @ 43.333 mls/ hr UNSCH PRN IV 04/16/17 12:45 (Heparin Inj) 5,000 units Q12HR SQ 04/17/17 21:00 04/18/17 09:16 Assessment and Plan Assessment and Plan 72 y.o female with respiratory failure and gross hematuria with ARF Will start Amicar CBI to help stop hematuria Will need to irrigate santoyo Q 4 hours to remove clots Ucx with GNR's. Continue Abx. 04/17 72 y.o female with respiratory failure and gross hematuria with ARF which is improving. Creatinine at 1.5 Titrate CBI to off as urine clears Cystoscopy once stable and off vent 04/18 72 y.o female with respiratory failure and gross hematuria Change santoyo out to 3 way 24 F catheter and manually irrigate Continue to hold Heparin Restart Amicar CBI Arash Cruz DO Apr 18, 2017 12:33
--- NOTE | 2017-04-18 13:03 | HHI.CCPN ---
Subjective Remarks/Hospital Course The patient is a 72-year-old female with multiple medical comorbidities which include hypertension, diabetes mellitus, hyperlipidemia, obstructive sleep apnea on C-PAP machine at home, COPD, CVA with residual left-sided hemiparesis who presented to [facility] ED with altered mental status and emesis. She was last seen normal yesterday. The patient was on non-rebreather mask initially, however, she was intubated with etomidate, succinylcholine and placed on mechanical ventilation. Also she was placed on Versed drip for sedation. ABG post intubation showed acute hypercapnic respiratory failure with a pH of 7.36, CO2 51, pAO2 322, bicarb 28 and saturation 97%. Her laboratory data significant for acute renal failure with a BUN of 91, creatinine 3.65. Lactic acid was 1.9. Also she was found to have leukocytosis with a WBC of 17.1 associated with bandemia of 26. Her urinalysis was positive for leukocyte esterase, moderate blood and many bacteria. Chest x-ray post intubation showed ET tube above the [place]im[place], questionable elevation of right hemidiaphragm with subsegmental atelectasis. In the ER she is currently receiving a second liter of IV fluids and received cefepime and vancomycin. A Cuellar was placed in the ER and post placement the patient noted to have hematuria. to her altered mental status she was scheduled to undergo CT scan of the brain without contrast. Of note the patient was on Eliquis for a history of paroxysmal atrial fibrillation. Also a CT scan of the thorax, abdomen, pelvis without contrast were ordered by the ED physician. Most of the history was obtained from reviewing medical records as the patient is intubated and no family members present at the bedside 04/11 Patient became hypotensive overnight started on Levophed 15 mics and Vasopressin. Sedated with fentanyl, Diprivan and intubated. Afebrile. BC from yesterday GPC. 04/12: Currently afebrile. Currently on norepinephrine at 6 mcg/m and vasopressin 0.04 units per minute sedated on the ventilator and propofol and fentanyl drips. Currently undergoing small bowel follow-through. 04/13: Currently on propofol at 9 mcg/kg per minute. Off fentanyl drip. Small bowel follow-through revealed transition to colon at 4 hours. No signs of bowel obstruction. Small bowel is mildly dilatated. Creatinine currently 2.1. Edematous. Vasopressor requirements decreasing. Subjective 04/14: Afebrile. Currently on propofol; at 10 g per kilogram per minute. Positive BM. Creatinine Is currently at baseline 1.8. Abdominal x-ray pending 04/15 Remains intubated sedated with propofol. Intermittently follows commands. KUB shows gaseous distention. WBC increased to 28.5 creatinine improving 04/16: Patient remains septic remains on Levophed and vasopressin. Intermittently follows commands with the right upper extremity. WBC count is slightly improved. UO adequate. Failed CPAP trial 04/17: Remains in septic shock on vasopressin unable to wean off. Failed CPAP trials again today. Labs ordered for tomorrow. Appreciate urology reevaluation. Wean to DC Amicar CBI 04/18: Remains encephalopathic failing weaning trials. Vent day 9 without significant improvement. WBC count remains elevated at 25,000. Hematuria has restarted Objective Vital Signs Date Time Temp Pulse Resp B/P (MAP) Pulse Ox O2 Delivery O2 Flow Rate FiO2 04/18/17 11:12 99 40 04/18/17 08:00 84 04/18/17 04:00 98.0 16 141/60 (87) Intake and Output 04/18/17 04/18/17 04/19/17 08:00 16:00 00:00 Intake Total 601 ml Output Total 250 ml Balance 351 ml Result Diagram: 04/18/17 0510 04/18/17 0510 Imaging Last Impressions Chest X-Ray 04/13/17 0600 Signed Impressions: Service Date/Time: Thursday, April 13, 2017 04:03 - CONCLUSION: Worsening bilateral pulmonary infiltrates. Anthony Duncan Jr., MD Abdomen X-Ray 04/13/17 0600 Signed Impressions: Service Date/Time: Thursday, April 13, 2017 04:10 - CONCLUSION: Unchanged dilated small bowel. Oral contrast reaches the rectal vault. Anthony Duncan Jr., MD Small Bowel X-Ray 04/12/17 0000 Signed Impressions: Service Date/Time: Wednesday, April 12, 2017 14:36 - CONCLUSION: 1. Mild small bowel dilatation without obstruction. Contrast reaches distal colon by 4 hours. Abrahan Gómez MD Head CT 04/10/17 1648 Signed Impressions: Service Date/Time: Monday, April 10, 2017 17:11 - CONCLUSION: 1. No acute intracranial abnormality or significant interval change. Daniel Carvajal MD Abdomen/Pelvis CT 04/10/17 1625 Signed Impressions: Service Date/Time: Monday, April 10, 2017 17:15 - CONCLUSION: Mild fluid and gaseous distention of small bowel, mainly the proximal small bowel. No acute focal findings in the abdomen or pelvis on noncontrast evaluation. King Shi MD Chest CT 04/10/17 0000 Signed Impressions: Service Date/Time: Monday, April 10, 2017 17:15 - CONCLUSION: 1. ETT just above the kimberlyn. 2. Dense right lower lobe airspace consolidation with diffuse patchy nodular airspace disease throughout the remainder of the right lung and at the extreme left lung base. Findings are most consistent with pneumonia, atypical infection or aspiration. 3. No significant effusion or pneumothorax. Daniel Carvajal MD Objective Remarks GENERAL: Patient is 72 yo critically ill orotracheally intubated SKIN: Warm and dry. Decubitus ulcer bilateral gluteal. Stage II. HEAD: Normocephalic. EYES: No scleral icterus. No injection or drainage. NECK: Supple, trachea midline. No JVD or lymphadenopathy. CARDIOVASCULAR: Regular rate and rhythm currently. S1, S2 no S4. Without murmurs, gallops, or rubs. RESPIRATORY: Breath sounds equal bilaterally. No accessory muscle use. Bilateral rhonchi GASTROINTESTINAL: Abdomen soft, non-tender, obese. No bowel sounds are appreciated : Cuellar in place with urine clearing MUSCULOSKELETAL: +2 edema. Neuro: More lethargic obtunded. Off sedation for 24 hours. Opens eyes to stimulation. Very weakly moves right upper extremity Date of Insertion: Apr 10, 2017 Line: Central Venous Catheter Side: Right Location: Subclavian A/P Assessment and Plan Neuro/Psych: Metabolic encephalopathy secondary to sepsis History of CVA with left-sided weakness Propofol Had been held for more than 24 hours, no improvement in encephalopathy Fentanyl drip currently on hold due to small bowel dilatation Goal of RA SS -1. 04/10 -CT brain without contrast: No acute abnormalities. Pulm : Acute respiratory failure secondary to pneumonia/E Coli, Severe sepsis LAXMI COPD Continue with vent support and maintain sats above 92%. Ventilator bundle, PRVC 14/500/1/5/40, Daily SBT. Continues to fail weaning trial due to tachypnea respiratory distress Albuterol/ipratropium aerosols every 6 hours with albuterol aerosols every 2 hours as needed for dyspnea Chest x-ray revealed bilateral persistent infiltrates CT chest: Dense RLL airspace consolidation with diffuse patchy nodular airspace disease throughout the remainder of the right lung and at the extreme left lung base. Findings are most consistent with pneumonia, CV: Septic shock History of paroxysmal atrial fibrillation currently normal sinus rhythm Hypertension Dyslipidemia Currently off all pressors for 24 hours. Maintaining map above 65 Off maintenance fluid. Echo: EF 55-60%. Lactic acid: 1.9 Renal/FEN/: Hematuria Hypocalcemia Hypopotassemia Hyponatremia Hypophosphatemia Monitor renal function, I/O's and avoid nephrotoxins Renal and Urology consulted. Creatinine improving. Was On continuous bladder irrigations with Amicar. DCd per Dr. Cruz 04/07. Hematuria has restarted, Dr. Cruz now seeing the patient GI: Small bowel dilatation On Protonix 40 mg IV daily for GI prophylaxis. Small bowel follow-through - mild dilatation of small bowel however contrast does transition to: Within 4 hours. KUB - small bowel dilatation. Contrast rectum. Repeat 04/[address] abd/pelvis possible small bowel obstruction. GI following. Nepro advance as tolerated ID: Enterococcus faecalis bacteremia Proteus UTI Escherichia coli pneumonia Continue with abx ( Unasyn) Monitor for signs infections (fever and WBC) Pharmacy to adjust doses of abx per renal function. 04/10 blood cultures Enterococcus faecalis 3/ bottles. Check BC x 2 sets 04/10. 04/11 blood cultures no growth 04/10 UA positive Proteus 04/11 - sputum -Escherichia coli Influenza screening, strep pneumonia and Legionella urinary Ag negative. Follow up on urine cx, check sputum cx Wound care is following for sacral wound ulcers. Endo: Diabetes mellitus Continue SSI to medium scale with Accu-Chek q.4h for glycemic control. Continue detemir 7units BID Heme: Leukocytosis Normocytic anemia Monitor CBC and coags. MSK: Decubitus ulcer Santyl barrier cream twice a day. Wound care consulted GI prophylaxis with pantoprazole 40 mg daily and DVT prophylaxis with SCDs Heparin started 04/17/17, discontinued today due to gross hematuria Lines: Right subclavian CVL, Right radial Art line placed 04/10- 04/17 Patient is critically ill with septic shock, resp failure, ARF, pneumonia, UTI. Currently off pressors but mental status will not permit extubation. Chest x- ray with bilateral infiltrates. Without ventilator support she will . We' ll consult palliative care to address goals of care including tracheostomy and PEG tube placement CCT 30 mins Elmo Malik MD Apr 18, 2017 13:03
--- NOTE | 2017-04-18 14:27 | PD.CONS ---
Consult Service Palliative Care . Consult Requested By Dr. Malik . Primary Care Physician Handy Nails MD . Reason for Consultation a. To assist with evaluation and management of symptoms including: encephalopathy, dyspnea, debility b. To assist medical decision maker(s) with: better understanding of current medical conditions; weighing benefits/burdens of medical treatment options; making medical treatment decisions. . HPI History of Present Illness Ms. Mackey is a 72-year-old female with atrial fibrillation on anticoagulation, sleep apnea on CPAP, diabetes, hypertension, hyperlipidemia, a history of CVA with residual left-sided hemiparesis, COPD, and a history of PUD. She presented to [facility] via EMS on 04/10/2017 for evaluation of altered mentation. EMS found the patient with a large amount of coffee-ground like emesis on her face and chest. The patient presented to the ED covered in emesis ; she was unable to provide any history. The patient's lives at home with her son's who state she was last seen at her baseline the day before. Patient was initially on a nonrebreather but had to be intubated and placed on mechanical ventilation. ABG post intubation showed acute hypercapnic respiratory failure. Additional diagnostic data: * Vital signs: Pulse 140, respirations 36, BP 157/74, oxygen saturation 93% on 15 L via nonrebreather, oral temperature 98.6 * WBC: 17.1, hemoglobin 8.6, hematocrit 27.3, platelets 729, neutrophils 74.1% * Sodium: 1:30, potassium 4.8, chloride 88, carbon dioxide 31.9, glucose 139, calcium 7.2, phosphorus 7.0, magnesium 1.7 * BUN: 91, creatinine 3.65, GFR 12 * Lactic acid: 1.9 * Total bilirubin: 1.0, AST 27, ALT 12, alkaline phosphatase 331 * Total creatine kinase: 35 * Troponin: 0.07 * BNP: 126 * Total protein: 7.4, albumin 1.7 * Lipase: 37 * PT: 17.4, INR 1.5, APTT 49.4 * Urinalysis with moderate amount of occult blood large amount leukocyte esterase, occasional urine WBC clumps and many bacteria. Urine culture indicated. * Nasal screen: + MRSA * Chest x-ray showed volume loss in the right chest with right lower lobe consolidation or atelectasis. There was minimal suspected atelectasis or consolidation at the left base. * CT chest revealed dense right lower lobe airspace consolidation with diffuse patchy nodular airspace disease throughout the remainder of the right lung and at the extreme left lung base. Findings are most consistent with pneumonia, atypical infection or aspiration. No significant effusion or pneumothorax was noted. * No acute intracranial abnormalities or significant interval change was seen on CT head. The patient was admitted to critical care services with acute respiratory failure, septic shock acute renal failure with electrolyte abnormality, UTI, pneumonia and hematuria. Urology and nephrology were consulted; the patient was started on CBI. Gastroenterology was consulted. CT scan abdomen/pelvis on 04/10/17 showed mild fluid and gaseous distention of small bowel, mainly the proximal small bowel. No acute focal findings in the abdomen or pelvis on noncontrast evaluation. GI was consulted for further evaluation and treatment. OGT to LIWS with approximately 500-600cc of dark green bilious gastric secretions. The patient was here in February, for sepsis secondary to pneumonia and urinary tract infection, acute respiratory failure, acute kidney injury, paroxysmal atrial fibrillation, and anemia with hemoccult (+) stool. She underwent EGD on which showed a normal esophagus, multiple small ulcers were found in the prepyloric region of the stomach and at the pylorus; biopsies were taken. Food residue in the gastric fundus, cardia, and gastric body, normal duodenal mucosa in the bulb and second portion of the duodenum, retroflexion was performed and was normal. Pathology revealed moderate chronic active gastritis with features of ulceration and associated reactive epithelial changes negative for H. pylori. Follow-up KUB on 04/11/17 with multiple dilated loops of bowel in the right abdomen; a small bowel obstruction cannot be excluded. 04/13/17: KUB was unchanged showing dilated small bowel; oral contrast reaches the rectal vault. Chest x-ray showed worsening bilateral pulmonary infiltrates. Blood cultures from 04/10/17 growing Enterococcus faecalis. Sputum culture with Escherichia coli. Echocardiogram negative for vegetation. Infectious disease following. Patient remains encephalopathic, failing weaning trials status post intubation 9 days. Hematuria has restarted and the patient is again on CBI. BUN: 44, creatinine 1.5 to, GFR 33 WBC count remains elevated at 25,000. UA + Proteus on 04/10/17; Blood culture + Enterococcus faecalis; Sputum + Escherichia coli on 04/11/17. Palliative Care was consulted to assist with symptom management and to discuss with the family the benefits and burdens of her current illnesses and the options regarding future care. . Function/Cognitive Trajectory Per review of notes, patient was living at home with her sons prior to being admitted on 04/10/17. The patient presented to [facility] after being found covered in emesis with altered mentation. They stated the patient was seen "normal" and at her baseline 24 hours prior. Of note, the patient was admitted in October, with altered mental status/sepsis and again in February, with sepsis. Further information pending family meeting tomorrow 04/19/2017 at noon. . Review of Systems ROS Limitations: Clinical Condition, Altered Mental Status Constitutional: COMPLAINS OF: Weight loss (approximately 25 pounds in the past 5 months), Generalized weakness Respiratory: COMPLAINS OF: Sputum production, Shortness of breath Cardiovascular: COMPLAINS OF: Lower Extremity Edema Gastrointestinal: DENIES: Black stools, Bloody stools, Vomiting blood Genitourinary: DENIES: Hematuria Hematologic/Lymphatics: COMPLAINS OF: Bruising Psychiatric: COMPLAINS OF: Confusion Past Family Social History Coded Allergies: *MDRO Multi-Drug Resistant Organism (Verified Adverse Reaction, Unknown, ) MRSA PCR Screen POSITIVE - 10/24/2016 MRSA (sputum)-10/24/16 Past Medical History Paroxysmal atrial fibrillation on chronic anticoagulation Sleep apnea, on home CPAP Diabetes mellitus Hypertension Hyperlipidemia CVA with residual left-sided hemiparesis COPD History of PUD . Past Surgical History Hernia repair Appendectomy Cholecystectomy Right hip replacement . Reported Medications Albuterol Neb (Albuterol Sulfate) 2.5 Mg/3 Ml Neb 2.5 Mg INH Q6HR NEB PRN Lactobacillus Acidophilus 1 Billion Cell Tab 1 Tab PO TIDAC Hydrocodone-Acetaminophen 5-325 mg Tab 1 Tab PO Q6HR PRN Furosemide 40 Mg Tab 40 Mg PO DAILY Pantoprazole (Pantoprazole Sodium) 40 Mg Tab 40 Mg PO Q24H Cardizem (Diltiazem HCl) 30 Mg Tab 60 Mg PO Q8HR Eliquis (Apixaban) 5 Mg Tab 5 Mg PO BID . Current Medications Medications (Trade) Dose Ordered Sig/Meme Route Start Time Stop Time Status Last Admin Miscellaneous Information 1 Q361D XX 04/10/17 17:00 04/10/17 17:00 (Chlorhexidine 2% Cloth) Taper DAILY@04 TOP 04/11/17 04:00 04/07/18 03:59 04/15/17 03:40 (Chlorhexidine 2% Cloth) 3 pack UNSCH PRN TOP 04/10/17 17:00 (Leda-Colace) 1 tab BID PO 04/10/17 21:00 04/18/17 09:16 (Milk Of Magnesia Liq) 30 ml Q12H PRN PO 04/10/17 17:00 (Senokot) 17.2 mg Q12H PRN PO 04/10/17 17:00 (Dulcolax Supp) 10 mg DAILY PRN RECTAL 04/10/17 17:00 (Lactulose Liq) 30 ml DAILY PRN PO 04/10/17 17:00 Fentanyl Citrate 250 ml @ 5 mls/hr TITRATE PRN IV 04/10/17 17:15 04/12/17 08:52 Norepinephrine Bitartrate 250 ml @ 7.5 mls/hr TITRATE PRN IV 04/10/17 20:30 04/17/17 06:03 Vasopressin 40 units/Dextrose 100 ml @ 6 mls/hr [id number] IV 04/10/17 23:04 04/16/17 22:36 Midazolam HCl 100 ml @ 2 mls/hr TITRATE PRN IV 04/10/17 23:15 Propofol 100 ml @ 2.55 mls/hr TITRATE PRN IV 04/10/17 23:30 04/16/17 17:44 Sodium Chloride 1,000 ml @ 100 mls/hr Q10H IV 04/11/17 10:45 04/15/17 03:40 (D50w (Vial) Inj) 50 ml UNSCH PRN IV PUSH 04/11/17 10:45 (Glucagon Inj) 1 mg UNSCH PRN OTHER 04/11/17 10:45 (NovoLIN R SUPPLEMENTAL SCALE) 1 Q4H SQ 04/11/17 12:00 04/15/17 03:35 (Levemir Inj) 7 units Q12HR SQ 04/11/17 11:40 04/17/17 09:00 (Senna Liq) 8.8 mg DAILY PO 04/11/17 12:30 04/18/17 09:13 (Oscal-D 250-125) 250 mg Q12HR PO 04/11/17 14:30 04/18/17 09:16 (Fosrenol Chew) 500 mg TID CHEW 04/11/17 18:00 04/18/17 09:00 (Miralax) 17 gm DAILY PO 04/11/17 15:15 04/18/17 09:15 (Reglan Inj) 5 mg Q8HR IV PUSH 04/11/17 22:00 04/18/17 05:16 (Protonix Inj) 40 mg Q24H IV PUSH 04/11/17 16:00 04/17/17 17:37 Aminocaproic Acid 3000 mg/Sodium Chloride 3,012 ml @ 0 mls/hr UNSCH IRRIGATION 04/12/17 10:00 04/16/17 22:32 (Albuterol Neb) 2.5 mg Q2HR NEB PRN NEB 04/13/17 08:30 04/18/17 08:38 (Tears Naturale Opth Soln) 1 drop Q8HR EACH EYE 04/14/17 22:00 04/18/17 05:16 Ampicillin Sodium/ Sulbactam Sodium 3 gm/Sodium Chloride 100 ml @ 200 mls/hr Q12H IV 04/15/17 21:00 04/18/17 09:00 Miscellaneous Information D/C ICU ELECTROLYTE ORDERS... UNSCH PRN .XX 04/16/17 12:45 Miscellaneous Information ICU - CALL ORDERING PHYSIC... UNSCH PRN .XX 04/16/17 12:45 Potassium Chloride 100 ml @ 25 mls/hr UNSCH PRN IV 04/16/17 12:45 04/16/17 16:42 (K-Lyte Cl Eff) 50 meq UNSCH PRN PO 04/16/17 12:45 Potassium Chloride 100 ml @ 50 mls/hr UNSCH PRN IV 04/16/17 12:45 Magnesium Sulfate 4 gm/Sodium Chloride 108 ml @ 54 mls/hr UNSCH PRN IV 04/16/17 12:45 Magnesium Sulfate 2 gm/Sodium Chloride 104 ml @ 52 mls/hr UNSCH PRN IV 04/16/17 12:45 (Mag-Ox) 800 mg UNSCH PRN PO 04/16/17 12:45 Sodium Phosphate 30 mmol/Sodium Chloride 260 ml @ 43.333 mls/ hr UNSCH PRN IV 04/16/17 12:45 (K-Phos) 2,000 mg UNSCH PRN PO 04/16/17 12:45 Potassium Phosphate 30 mmol/ Sodium Chloride 260 ml @ 43.333 mls/ hr UNSCH PRN IV 04/16/17 12:45 Family History Patient reports familial history of heart disease. Mother from lung cancer. Patient's father's medical history is unknown. . Substance Use Tobacco: Previous tobacco use. Alcohol: None known Prescription med abuse: None known Illicits: None known . Psychosocial History Patient was born in [place], moving to [place] in 1978. She has 3 sisters and 2 brothers. 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 Her in 2003 from lung cancer, together she and her had one daughter. The patient had a total of 4 biological children children. Cheryl, aLmin, Beck who live locally. Noemí recently in January,. . Spiritual/Cultural Factors Shinto ricardo . Documented care wishes: Patient's daughter (Cheryl) stating she has been designated as the [facility] decision- maker and will make copies available tomorrow at the scheduled family meeting. . Today's verbally stated goals: Patient is unable to participate and establishment of medical treatment goals secondary to her current clinical condition. . Family/friends goals: Pending family meeting tomorrow 04/19/2017 at noon. . Ethical and Legal Issues No known medical or legal issues. . Physical Exam Vital Signs Date Time Temp Pulse Resp B/P (MAP) Pulse Ox O2 Delivery O2 Flow Rate FiO2 04/18/17 11:12 99 40 04/18/17 08:33 40 04/18/17 08:22 97 40 04/18/17 08:00 84 04/18/17 06:00 81 04/18/17 04:00 80 04/18/17 04:00 98.0 80 16 141/60 (87) 100 04/18/17 04:00 40 04/18/17 03:59 100 40 04/18/17 02:00 75 04/18/17 00:13 100 40 04/18/17 00:00 81 04/18/17 00:00 98.0 81 15 116/56 (76) 100 04/18/17 00:00 40 04/17/17 22:00 81 04/17/17 20:38 96 40 04/17/17 20:00 87 04/17/17 20:00 40 04/17/17 20:00 98.0 87 22 93/54 (67) 97 Arterial Line 04/17/17 16:43 93 40 04/17/17 16:00 40 04/17/17 16:00 97.2 65 14 105/53 (70) 100 117/54 (75) . Exam CONSTITUTIONAL/GENERAL: This is an obese, elderly female patient currently intubated on a chemical ventilator TUBES/LINES/DRAINS: PIV, CVL, OGT, ETT, Rectal tube, Podus boots, Cuellar catheter , soft restraints SKIN: No jaundice, rashes, or lesions. Ecchymoses on upper extremities. No wounds seen anteriorly. Skin temperature appropriate. Not diaphoretic. HEAD: Atraumatic. Normocephalic. EYES: Pupils 2mm, equal and sluggish. . No scleral icterus. No injection or drainage. Fundi not examined. ENT: Hearing grossly normal. Nose without bleeding or purulent drainage. Mucous membranes dry NECK: Trachea midline. CARDIOVASCULAR: Regular rate and rhythm without murmurs, gallops, or rubs. No JVD. Peripheral pulses symmetric. RESPIRATORY/CHEST: Intubated on mechanical ventilation. Scattered rhonchi. GASTROINTESTINAL: Abdomen soft, non-tender, nondistended. Bowel sounds present. GENITOURINARY: Without palpable bladder distension. Cuellar catheter with CBI. + hematuria MUSCULOSKELETAL: Extremities without clubbing or cyanosis. +2 edema. LYMPHATICS: No palpable cervical or supraclavicular adenopathy. NEUROLOGICAL: Off sedation x 24 hours. Lethargic, obtunded. Arouses to verbal stimuli PSYCHIATRIC: Unable to assess secondary to clinical condition. . Diagnostic Tests Laboratory Laboratory Tests Test 04/16/17 09:40 04/18/17 05:10 White Blood Count 25.7 TH/MM3 (4.0-11.0) 25.4 TH/MM3 (4.0-11.0) Red Blood Count 2.84 MIL/MM3 (4.00-5.30) 2.75 MIL/MM3 (4.00-5.30) Hemoglobin 8.0 GM/DL (11.6-15.3) 7.5 GM/DL (11.6-15.3) Hematocrit 24.7 % (35.0-46.0) 24.0 % (35.0-46.0) Mean Corpuscular Volume 86.7 FL (80.0-100.0) 87.4 FL (80.0-100.0) Mean Corpuscular Hemoglobin 28.2 PG (27.0-34.0) 27.3 PG (27.0-34.0) Mean Corpuscular Hemoglobin Concent 32.6 % (32.0-36.0) 31.3 % (32.0-36.0) Red Cell Distribution Width 19.5 % (11.6-17.2) 19.7 % (11.6-17.2) Platelet Count 267 TH/MM3 (150-450) 223 TH/MM3 (150-450) Mean Platelet Volume 9.4 FL (7.0-11.0) 9.7 FL (7.0-11.0) Neutrophils (%) (Auto) 84.8 % (16.0-70.0) 83.7 % (16.0-70.0) Lymphocytes (%) (Auto) 11.5 % (9.0-44.0) 13.5 % (9.0-44.0) Monocytes (%) (Auto) 1.7 % (0.0-8.0) 2.5 % (0.0-8.0) Eosinophils (%) (Auto) 1.8 % (0.0-4.0) 0.2 % (0.0-4.0) Basophils (%) (Auto) 0.2 % (0.0-2.0) 0.1 % (0.0-2.0) Neutrophils # (Auto) 21.8 TH/MM3 (1.8-7.7) 21.3 TH/MM3 (1.8-7.7) Lymphocytes # (Auto) 3.0 TH/MM3 (1.0-4.8) 3.4 TH/MM3 (1.0-4.8) Monocytes # (Auto) 0.4 TH/MM3 (0-0.9) 0.6 TH/MM3 (0-0.9) Eosinophils # (Auto) 0.5 TH/MM3 (0-0.4) 0.1 TH/MM3 (0-0.4) Basophils # (Auto) 0.1 TH/MM3 (0-0.2) 0.0 TH/MM3 (0-0.2) CBC Comment AUTO DIFF AUTO DIFF Differential Total Cells Counted 100 100 Neutrophils % (Manual) 86 % (16-70) 87 % (16-70) Band Neutrophils % 4 % (0-6) 1 % (0-6) Lymphocytes % 10 % (9-44) 9 % (9-44) Neutrophils # (Manual) 23.1 TH/MM3 (1.8-7.7) 22.9 TH/MM3 (1.8-7.7) Differential Comment FINAL DIFF MANUAL FINAL DIFF MANUAL Platelet Estimate NORMAL (NORMAL) NORMAL (NORMAL) Platelet Morphology Comment NORMAL (NORMAL) ENLARGED (NORMAL) Blood Urea Nitrogen 43 MG/DL (7-18) 44 MG/DL (7-18) Creatinine 1.50 MG/DL (0.50-1.00) 1.52 MG/DL (0.50-1.00) Random Glucose 114 MG/DL (74-106) 74 MG/DL (74-106) Total Protein 5.7 GM/DL (6.4-8.2) 5.8 GM/DL (6.4-8.2) Albumin 1.5 GM/DL (3.4-5.0) 1.4 GM/DL (3.4-5.0) Calcium Level 7.4 MG/DL (8.5-10.1) 7.9 MG/DL (8.5-10.1) Phosphorus Level 4.0 MG/DL (2.5-4.9) Magnesium Level 2.1 MG/DL (1.5-2.5) Alkaline Phosphatase 406 U/L (45-117) 571 U/L (45-117) Aspartate Amino Transf (AST/SGOT) 37 U/L (15-37) 63 U/L (15-37) Alanine Aminotransferase (ALT/SGPT) 11 U/L (10-53) 20 U/L (10-53) Total Bilirubin 0.9 MG/DL (0.2-1.0) 0.7 MG/DL (0.2-1.0) Sodium Level 130 MEQ/L (136-145) 129 MEQ/L (136-145) Potassium Level 3.1 MEQ/L (3.5-5.1) 4.0 MEQ/L (3.5-5.1) Chloride Level 96 MEQ/L (98-107) 96 MEQ/L (98-107) Carbon Dioxide Level 22.7 MEQ/L (21.0-32.0) 23.0 MEQ/L (21.0-32.0) Anion Gap 11 MEQ/L (5-15) 10 MEQ/L (5-15) Estimat Glomerular Filtration Rate 34 ML/MIN (>89) 33 ML/MIN (>89) Protein Corrected Calcium 8.2 MG/DL (8.5-10.1) Basophils % 1 % (0-2) Metamyelocytes 2 % (0-1) Result Diagram: 04/18/1750904/18/17 0510 Microbiology Microbiology Date/Time Source Procedure Growth Status 04/18/17 07:35 Blood Peripheral Aerobic Blood Culture Pending Received 04/18/17 07:35 Blood Peripheral Anaerobic Blood Culture Pending Received 04/18/17 07:20 Blood Peripheral Aerobic Blood Culture Pending Received 04/18/17 07:20 Blood Peripheral Anaerobic Blood Culture Pending Received . Imaging Last 72 hours Impressions Chest X-Ray 04/18/17 0600 Signed Impressions: Service Date/Time: April 03:56 - CONCLUSION: Slight improvement in aeration. King Shi MD . Procedures 04/10/17: Intubation 04/10/17: Central line placement 04/10/17: Right radial arterial line . Patient/Family Conference Present at Family Conference: Spoke with patient's daughter (Cheryl) via telephone to introduce the Palliative Care team. Palliative Care contact information was provided. Tentative family meeting scheduled for tomorrow 04/19/17 at noon. . Family Conference Location: Telephone Issues Discussed: * Palliative care role, purpose, approach * Additional medical, psychosocial, and spiritual history * Patients general health, functional status, and cognitive changes in the months leading up to the current hospitalization * Patient/family understanding of the current medical problems * Patient/family understanding of prognosis * Patients goals of care as best understood from advance directives and/or conversations and/or values * Current medical treatment options and benefits/burdens of those options * Likely scenarios comparing ongoing aggressive care with a transition to comfort measures only * Questions answered to the best of my ability * Palliative care contact information provided . Assessment and Plan Disease Oriented Problem List: (1) PAROXYSMAL ATRIAL FIBRILLATION (2) HTN (hypertension) (3) LAXMI on CPAP (4) History of CVA with residual deficit (5) Elevated troponin I level (6) Pneumonia (7) Acute respiratory failure (8) Acute renal failure (9) Sepsis (10) UTI (urinary tract infection) (11) Diabetes mellitus (12) Leukocytosis Symptom Scale: (1) Debility (2) Encephalopathy (3) Dyspnea Pertinent Non-Medical Issues Psychosocial: Patient was born in [place], moving to [place] in 1978. She has 3 sisters and 2 brothers. The patient worked at the [employer] and in a [employer] most of her life. Her in 2003 from lung cancer, together she and her had one daughter. The patient has a total of 4 biological children children. Lamin Luna, Beck) who live locally. Her daughter, Noemí, in January,. Spiritual: Shinto ricardo Legal: Per [place] statutes, in the absence of written advanced directives healthcare proxy decision making would fall to the majority of the patient's living adult children (Lamin Luna, Beck). The patient's daughter (Cheryl) states her mother has designated her as the healthcare surrogate decision maker ; she states she is willing to provide copies of this documentation. Ethical issues impacting care: No known ethical issues impacting care at this time. . Important Contacts Cheryl Fan, daughter: [phone] or [phone] Noemí, daughter: [phone] Beck, son: [phone] Memo, son: [phone] . Prognosis Ms. Mackey is a 71-year-old female patient with a complex medical history that includes DM, hypothyroidism, anemia, gout, hypertension, hyperlipoproteinemia, history of CVA with residual left-sided weakness, chronic kidney insufficiency, atrial fibrillation and obstructive sleep apnea. This is the patient's third known hospitalization for management of sepsis since October,. The patient has been intubated for 9 days, she is not tolerating weaning. She remains encephalopathic off sedation 24 hours. Chest x-ray with bilateral infiltrates. Patient is critically ill with septic shock, respiratory failure, ARF, pneumonia, UTI. If goals are to remain aggressive, patient will require trach and PEG tube placement. . Code Status: Full Code Plan * FULL CODE. * Decision-making: Per [place] statutes, in the absence of written advanced directives healthcare proxy decision making would fall to the majority of the patient's living adult children (Cheryl, Lamin, Beck). The patient's daughter (Cheryl) states her mother has designated her as the healthcare surrogate decision maker; she states she is willing to provide copies of this documentation. * Family meeting scheduled for tomorrow 04/19/2017 at noon. * Goals aggressive pending further conversation with patient's family. * Discussed with bedside nurse, Tonya, and Dr. Malik. * Patient remains critically ill with septic shock, respiratory failure, ARF, pneumonia and UTI. She no longer requires pressor support but is unable to wean from mechanical ventilator. Patient remains encephalopathic off sedation 24 hours. If goals are to remain aggressive the patient will require tracheostomy and PEG tube placement. Transitioning to comfort focused care would also be an appropriate decision at this time. * Symptom management - encephalopathy: CT head on 04/10/17 showed no acute intracranial abnormalities or significant interval change. Patient remains encephalopathic off sedation 24 hours. * Symptom management - debility: Patient with a complex medical history that includes DM, hypothyroidism, anemia, gout, hypertension, hyperlipoproteinemia, history of CVA with residual left-sided weakness, chronic kidney insufficiency, atrial fibrillation and obstructive sleep apnea. This is the patient's third known hospitalization for management of sepsis since October,. She is significantly deconditioned, having experienced an acute decline in the past 6 months. * Palliative care contact information provided to the patient's daughter, Cheryl. * Palliative care will continue to follow this patient throughout her hospitalization to establish trust, assist with symptom management and clarification of medical treatment goals. . Thank you for the opportunity to participate in the care of Ms. Mackey. . Attestation To help prompt me to consider important information that might be impacting today's encounter and assessment, information from prior notes written by myself or my colleagues may have been "brought forward" into today's note. My signature on this note, however, is an attestation that I personally performed the exam, history, and/or decision-making noted today, and, unless otherwise indicated, the interactions with patient, family, and staff as well as the review of records all occurred today. I also attest that the listed assessment and stated plan reflect my best clinical judgment today based on the combination of historical information, prior notes, and today's exam/ interactions. When time spent is documented, it refers only to time spent today by the signer, or if indicated, combined time spent today by collaborating physician/nurse practitioner. . Margi Mederos Apr 18, 2017 14:27
[2017-04-18] MEDS: AMINOCAPROIC ACID INJ 3,000 MG in SODIUM CHLORIDE 0.9% IRR BAG 3,000 ML IRRIGATION SCH ×4 (15:00→23:20)
[2017-04-18] MEDS: PANTOPRAZOLE SODIUM 40 MG VIAL IV PUSH SCH (16:00)
--- NOTE | 2017-04-18 16:26 | PD.WCN.NOT ---
Wound Consult Description: Follow up for multiple DTIs to L buttock and diffuse and st Recommendation: Please cleanse buttock area with soap and water and pat dry before applying Calazime barrier cream and leave open to air for now. Cleanse stage 2 pressure injury to R ischium with normal saline and pat dry before applying Xeroform in single layer just over wound bed and cover with bordered gauze. Please apply skin prep to periwound before covering wound with bordered gauze dressing. Change dressing daily or PRN if saturated or dislodged Additional Information: Patient seen on [facility] for evaluation of wound management of sacral area. Patient is intubated and sedated at this time.Positioned patient to L side with the assistance of RN [facility] Arelis, Senia BROWN, and typewriter assembly and parts inspector to reveal shallow full thickness wounds to to R buttock and R ischial areas. R buttock unstageable wound measures 7 cm x 1.5cm x slough. R ischial wound measures 1cm x 4 cm x ~ 0.1cm and presents as shallow stage 3 wound with 80% pink tissue and ~20% yellow tissue. Patient turned to L side with maximum assistance of Arelis RANDHAWA 5th floor [facility] Senia BROWN, and typewriter assembly and parts inspector to reveal three Deep tissue injures still noted to L buttock all measuring ~0.5cm x ~4cm that are opening to partial thickness skin loss. DTIs appear still appear in a linear pattern on L buttock Another deep tissue injury is seen on R buttock that measures ~1cm x~4cm . Entire bilateral buttocks presents with slight blanchable erythema and denuded peeling skin. L buttock shallow full thickness wound measures ~2cm x~1cm x ~0.1cm. Tissue in wound bed presents with ~80% pink tissue and 20% yellow tissue. Wound margins are well defined attached.Patient also has small areas of partial thickness skin loss that are scattered on bilateral buttocks and medial gluteal cleft. Left all wounds open to air, thick layer of Calazime barrier cream is being applied. Overall buttock area IAD is improved and DTIs to L buttock have improved. Please continue Calazime barrier cream for now. Will follow up with patient next week for further recommendations Neg Pressure Wound Therapy Wound Location Wound Location: Received consult for wound management of sacrum received from Doctor Gladis Shanks Apr 18, 2017 16:26
[2017-04-19] VITALS (19 sets, daily range): BP systolic 128–152; BP diastolic 56–72; PULSE 73–111; RESP 14–19; TEMP 98.1–98.8; O2SAT 99–100
[2017-04-19] MEDS: VASOPRESSIN INJ 40 UNITS in DEXTROSE 5% IN WATER 100ML INJ 98 ML IV SCH ×2 (01:40)
[2017-04-19] MEDS: AMINOCAPROIC ACID INJ 3,000 MG in SODIUM CHLORIDE 0.9% IRR BAG 3,000 ML IRRIGATION SCH (03:09)
[2017-04-19] MEDS: INSULIN NovoLIN REGULAR SUPPLEMENTAL SCALE SQ SCH ×6 (04:00→20:00)
[2017-04-19] MEDS: CHLORHEXIDINE GLUCONATE 2 % 1 PACK (2 CLOTHS) TOP SCH (04:00)
[2017-04-19] MEDS: METOCLOPRAMIDE HCL 10 MG/2 ML VIAL IV PUSH SCH ×3 (05:53→20:56)
[2017-04-19] MEDS: ARTIFICIAL TEARS OPTH SOLN 15 ML BTL EACH EYE SCH ×3 (05:54→20:56)
[2017-04-19 06:06] LABS: AUTOMATED NEUTROPHIL # 18.6 TH/MM3 (1.8-7.7); BASOPHIL % 0.2 % (0.0-2.0); EOSINOPHIL # 0.2 TH/MM3 (0-0.4); EOSINOPHIL % 0.9 % (0.0-4.0); HEMATOCRIT 24.2 % (35.0-46.0); LYMPH % 13.8 % (9.0-44.0); LYMPHOCYTE # 3.1 TH/MM3 (1.0-4.8); MEAN CELL VOLUME 87.3 FL (80.0-100.0); MEAN CORPUSCULAR HEMOGLOBIN 27.5 PG (27.0-34.0); MEAN CORPUSCULAR HGB CONC 31.5 % (32.0-36.0); MONO % 2.8 % (0.0-8.0); NEUT % 82.3 % (16.0-70.0); PLATELET COUNT 238 TH/MM3 (150-450); RED BLOOD COUNT 2.77 MIL/MM3 (4.00-5.30); RED CELL DISTRIBUTION WIDTH 19.1 % (11.6-17.2); WHITE BLOOD COUNT 22.6 TH/MM3 (4.0-11.0)
[2017-04-19 06:13] LABS: HEMO FLAGS AUTO DIFF
[2017-04-19 07:42] LABS: ALKALINE PHOSPHATASE 526 U/L (45-117); ALT (GPT) 22 U/L (10-53); AST (GOT) 47 U/L (15-37); BLOOD UREA NITROGEN 42 MG/DL (7-18); GLOMERULAR FILTRATION RATE 40 ML/MIN (>89)
[2017-04-19 07:43] LABS: ANION GAP 11 MEQ/L (5-15); BICARBONATE 23.3 MEQ/L (21.0-32.0); CHLORIDE 98 MEQ/L (98-107); POTASSIUM 3.8 MEQ/L (3.5-5.1); SODIUM (NA) 132 MEQ/L (136-145); TOTAL BILIRUBIN ADULT 0.5 MG/DL (0.2-1.0)
[2017-04-19] MEDS: LANTHANUM CARBONATE 500 MG CHEWABLE TABLET CHEW SCH ×3 (08:49→17:39)
[2017-04-19] MEDS: DOCUSATE SODIUM 50 MG/SENNA 8.6 MG TAB PO SCH ×2 (08:49→20:52)
[2017-04-19] MEDS: CALCIUM/VITAMIN D 250 MG/125 U TAB PO SCH ×2 (08:49→20:52)
[2017-04-19] MEDS: AMPICILLIN-SULBACTAM INJ 3 GM in SODIUM CHLORIDE 0.9% INJ 100 ML IV SCH ×2 (08:50→20:52)
[2017-04-19] MEDS: INSULIN DETEMIR 100 UNITS/ML VIAL SQ SCH ×2 (08:51→20:55)
[2017-04-19] MEDS: SENNOSIDES SYRUP 8.8 MG/5 ML CUP PO SCH (08:51)
[2017-04-19] MEDS: POLYETHYLENE GLYCOL 17 GM PKG PO SCH (08:51)
[2017-04-19 09:06] LABS: BANDS 6 % (0-6); MYELOCYTES 1 % (0-0); NEUTROPHIL # MANUAL DIFF 21.5 TH/MM3 (1.8-7.7); PLATELET ESTIMATE SMEAR NORMAL (NORMAL); PLATELET MORPHOLOGY ENLARGED (NORMAL); POLYS (SEG NEUTROPHILS) 88 % (16-70); TOXIC GRANULATION 2+ (NORMAL); WBC DIFF SAMPLE 100
[2017-04-19 09:07] LABS: SCAN/DIFF FINAL DIFF MANUAL
--- NOTE | 2017-04-19 10:41 | HHI.NPPN ---
Subjective History of Present Illness 72-year-old female known to me from her last admission when she was admitted in October of this year with past medical history of hypertension, diabetes mellitus, chronic kidney disease, history of cerebrovascular accident, hyperlipidemia, sleep apnea, atrial fibrillation, was admitted with altered mental status. I was called to see the patient because of elevated BUN and creatinine. I saw her when she was here in October and at that time her creatinine was as high as 2.8 and then it improved to around 1.4-1.6, which is probably her baseline. Additional Remarks Patient remain on the vent, sedated, and unresponsive, again has hematuria. Review of Systems General General Remarks Intubated and sedated. Objective Data Data Vital Signs Date Time Temp Pulse Resp B/P (MAP) Pulse Ox O2 Delivery O2 Flow Rate FiO2 04/19/17 08:38 99 40 04/19/17 08:00 98.3 96 19 131/71 (91) 100 04/19/17 08:00 96 04/19/17 08:00 40 04/19/17 06:00 93 04/19/17 04:13 100 40 04/19/17 04:00 40 04/19/17 04:00 101 04/19/17 04:00 98.6 101 19 142/56 (84) 99 04/19/17 02:00 82 04/19/17 00:00 92 04/19/17 00:00 40 04/19/17 00:00 98.2 92 17 138/72 (94) 99 04/18/17 23:51 100 40 04/18/17 22:00 89 04/18/17 20:08 98 40 04/18/17 20:00 99 04/18/17 20:00 98.4 99 16 100/57 (71) 99 04/18/17 20:00 40 04/18/17 16:07 100 40 04/18/17 16:00 97.8 89 12 128/58 (81) 99 04/18/17 13:58 100 40 04/18/17 12:00 98.1 72 12 124/60 (81) 100 04/18/17 12:00 40 04/18/17 11:12 99 40 -: 04/19/17 0545 04/19/17 0545 Physical Exam General Appearance Remarks Intubated and sedated. Eyes Eye Exam: Pupils Equal Throat Throat Exam: Oral Mucosa Mcfall & Moist Neck Neck Exam: Neck Supple Pulmonary Resp Exam: Rhonchi, Decreased Bases, Diminished Breath Sounds, Poor Inspiratory Effort Cardiology CV Exam: Regular, Normal Sinus Rhythm Gastrointestinal/Abdomen GI Exam: Soft, Non-Tender, Bowel Sounds Present, Distended Extremeties Extremities Exam: Moderate Edema, Pitting Edema Neurologic Neuro Exam: Sedated Assessment/Plan Assessment Summary: HIRAM/Acute Renal Failure, Hypotension, CKD Stage III Problem List: (1) Dyspnea ICD Codes: R06.00 - Dyspnea, unspecified Status: Acute (2) Diabetes mellitus ICD Codes: E11.9 - Type 2 diabetes mellitus without complications Status: Chronic (3) Leukocytosis ICD Codes: D72.829 - Elevated white blood cell count, unspecified Status: Resolved (4) Encephalopathy ICD Codes: G93.40 - Encephalopathy, unspecified Status: Acute (5) Pneumonia ICD Codes: J18.9 - Pneumonia, unspecified organism Status: Acute (6) Acute respiratory failure ICD Codes: J96.00 - Acute respiratory failure, unspecified whether with hypoxia or hypercapnia Status: Acute (7) Anemia ICD Codes: D64.9 - Anemia, unspecified Status: Acute (8) Sepsis ICD Codes: A41.9 - Sepsis, unspecified organism Status: Resolved (9) UTI (urinary tract infection) ICD Codes: N39.0 - Urinary tract infection, site not specified Status: Resolved (10) Acute renal failure ICD Codes: N17.9 - Acute kidney failure, unspecified Status: Acute (11) Acute worsening of stage 3 chronic kidney disease ICD Codes: N18.3 - Chronic kidney disease, stage 3 (moderate) Status: Acute Plan Patient has chronic kidney disease. The baseline Creatinine is 1.7-1.8. Now develop HIRAM, possibly related to Hypotension and ATN. Has sepsis and UTI, BP is low, on pressors. Has hematuria, and the urine is getting more clear.. Creatinine was stable now 1.5,same. Continue antibiotics.Avoid Nephrotoxins. Follow the Vanco. level. Continue IVF and antibiotics. Has hematuria again, urology following. Follow the urine out put and BMP. Problem Qualifiers (1) Pneumonia: Qualified Codes: J18.9 - Pneumonia, unspecified organism (2) Acute respiratory failure: Qualified Codes: J96.00 - Acute respiratory failure, unspecified whether with hypoxia or hypercapnia (3) Anemia: Qualified Codes: D64.9 - Anemia, unspecified (4) Sepsis: Qualified Codes: A41.9 - Sepsis, unspecified organism (5) UTI (urinary tract infection): Qualified Codes: N39.0 - Urinary tract infection, site not specified (6) Acute renal failure: Qualified Codes: N17.9 - Acute kidney failure, unspecified Bree Dill MD Apr 19, 2017 10:40
--- NOTE | 2017-04-19 12:12 | HHI.CCPN ---
Subjective Remarks/Hospital Course The patient is a 72-year-old female with multiple medical comorbidities which include hypertension, diabetes mellitus, hyperlipidemia, obstructive sleep apnea on C-PAP machine at home, COPD, CVA with residual left-sided hemiparesis who presented to [facility] ED with altered mental status and emesis. She was last seen normal yesterday. The patient was on non-rebreather mask initially, however, she was intubated with etomidate, succinylcholine and placed on mechanical ventilation. Also she was placed on Versed drip for sedation. ABG post intubation showed acute hypercapnic respiratory failure with a pH of 7.36, CO2 51, pAO2 322, bicarb 28 and saturation 97%. Her laboratory data significant for acute renal failure with a BUN of 91, creatinine 3.65. Lactic acid was 1.9. Also she was found to have leukocytosis with a WBC of 17.1 associated with bandemia of 26. Her urinalysis was positive for leukocyte esterase, moderate blood and many bacteria. Chest x-ray post intubation showed ET tube above the kimberlyn, questionable elevation of right hemidiaphragm with subsegmental atelectasis. In the ER she is currently receiving a second liter of IV fluids and received cefepime and vancomycin. A Santoyo was placed in the ER and post placement the patient noted to have hematuria. to her altered mental status she was scheduled to undergo CT scan of the brain without contrast. Of note the patient was on Eliquis for a history of paroxysmal atrial fibrillation. Also a CT scan of the thorax, abdomen, pelvis without contrast were ordered by the ED physician. Most of the history was obtained from reviewing medical records as the patient is intubated and no family members present at the bedside 04/11 Patient became hypotensive overnight started on Levophed 15 mics and Vasopressin. Sedated with fentanyl, Diprivan and intubated. Afebrile. BC from yesterday GPC. 04/12: Currently afebrile. Currently on norepinephrine at 6 mcg/m and vasopressin 0.04 units per minute sedated on the ventilator and propofol and fentanyl drips. Currently undergoing small bowel follow-through. 04/13: Currently on propofol at 9 mcg/kg per minute. Off fentanyl drip. Small bowel follow-through revealed transition to colon at 4 hours. No signs of bowel obstruction. Small bowel is mildly dilatated. Creatinine currently 2.1. Edematous. Vasopressor requirements decreasing. Subjective 04/14: Afebrile. Currently on propofol; at 10 g per kilogram per minute. Positive BM. Creatinine Is currently at baseline 1.8. Abdominal x-ray pending 04/15 Remains intubated sedated with propofol. Intermittently follows commands. KUB shows gaseous distention. WBC increased to 28.5 creatinine improving 04/16: Patient remains septic remains on Levophed and vasopressin. Intermittently follows commands with the right upper extremity. WBC count is slightly improved. UO adequate. Failed CPAP trial 04/17: Remains in septic shock on vasopressin unable to wean off. Failed CPAP trials again today. Labs ordered for tomorrow. Appreciate urology reevaluation. Wean to DC Amicar CBI 04/18: Remains encephalopathic failing weaning trials. Vent day 9 without significant improvement. WBC count remains elevated at 25,000. Hematuria has restarted 04/19: WBC, Creatinine slightly improved but clinically remains the same without any improvement in neuro exam. Palliative care meeting with family today. Vent day 10. Remains off sedation approximately 48 hours, but severely encephalopathy Objective Vital Signs Date Time Temp Pulse Resp B/P (MAP) Pulse Ox O2 Delivery O2 Flow Rate FiO2 04/19/17 11:37 99 40 04/19/17 10:00 96 04/19/17 08:00 98.3 19 131/71 (91) Intake and Output 04/19/17 04/19/17 04/20/17 08:00 16:00 00:00 Intake Total 330 ml Output Total 1300 ml Balance -970 ml Result Diagram: 04/19/17 0545 04/19/17 0545 Imaging Last Impressions Chest X-Ray 04/13/17 06 Signed Impressions: Service Date/Time: Thursday, April 13, 2017 04:03 - CONCLUSION: Worsening bilateral pulmonary infiltrates. Anthony Duncan Jr., MD Abdomen X-Ray 04/13/17 0600 Signed Impressions: Service Date/Time: Thursday, April 13, 2017 04:10 - CONCLUSION: Unchanged dilated small bowel. Oral contrast reaches the rectal vault. Anthony Duncan Jr., MD Small Bowel X-Ray 04/12/17 0000 Signed Impressions: Service Date/Time: Wednesday, April 12, 2017 14:36 - CONCLUSION: 1. Mild small bowel dilatation without obstruction. Contrast reaches distal colon by 4 hours. Abrahan Gómez MD Head CT 04/10/17 1648 Signed Impressions: Service Date/Time: Monday, April 10, 2017 17:11 - CONCLUSION: 1. No acute intracranial abnormality or significant interval change. Daniel Carvajal MD Abdomen/Pelvis CT 04/10/17 1625 Signed Impressions: Service Date/Time: Monday, April 10, 2017 17:15 - CONCLUSION: Mild fluid and gaseous distention of small bowel, mainly the proximal small bowel. No acute focal findings in the abdomen or pelvis on noncontrast evaluation. King Shi MD Chest CT 04/10/17 0000 Signed Impressions: Service Date/Time: Monday, April 10, 2017 17:15 - CONCLUSION: 1. ETT just above the kimberlyn. 2. Dense right lower lobe airspace consolidation with diffuse patchy nodular airspace disease throughout the remainder of the right lung and at the extreme left lung base. Findings are most consistent with pneumonia, atypical infection or aspiration. 3. No significant effusion or pneumothorax. Daniel Carvajal MD Objective Remarks GENERAL: Patient is 72 yo critically ill orotracheally intubated SKIN: Warm and dry. Decubitus ulcer bilateral gluteal. Stage II. HEAD: Normocephalic. EYES: No scleral icterus. No injection or drainage. NECK: Supple, trachea midline. No JVD or lymphadenopathy. CARDIOVASCULAR: Regular rate and rhythm currently. S1, S2 no S4. Without murmurs, gallops, or rubs. RESPIRATORY: Breath sounds equal bilaterally. No accessory muscle use. Bilateral rhonchi GASTROINTESTINAL: Abdomen soft, non-tender, obese. No bowel sounds are appreciated : Santoyo in place with urine clearing MUSCULOSKELETAL: +2 edema. Neuro: Lethargic obtunded. Off sedation for 48 hours. Partially opens eyes to stimulation. Very weakly moves right upper extremity Date of Insertion: Apr 10, 2017 Line: Central Venous Catheter Side: Right Location: Subclavian A/P Assessment and Plan Neuro/Psych: Metabolic encephalopathy secondary to sepsis History of CVA with left-sided weakness Propofol Had been held for more than 48 hours, no improvement in encephalopathy Fentanyl drip currently on hold due to small bowel dilatation Goal of RA SS -1. 04/10 -CT brain without contrast: No acute abnormalities. Pulm : Acute respiratory failure secondary to pneumonia/E Coli, Severe sepsis LAXMI COPD Continue with vent support and maintain sats above 92%. Ventilator bundle, PRVC 14/500/07/12/39, Daily SBT. Continues to fail weaning trial due to tachypnea respiratory distress Albuterol/ipratropium aerosols every 6 hours with albuterol aerosols every 2 hours as needed for dyspnea Chest x-ray revealed bilateral persistent infiltrates CT chest: Dense RLL airspace consolidation with diffuse patchy nodular airspace disease throughout the remainder of the right lung and at the extreme left lung base. Findings are most consistent with pneumonia, CV: Septic shock History of paroxysmal atrial fibrillation currently normal sinus rhythm Hypertension Dyslipidemia Currently off all pressors for 48 hours. Maintaining map above 65 Off maintenance fluid. Echo: EF 55-60%. Lactic acid: 1.9 Renal/FEN/: Hematuria Hypocalcemia Hypopotassemia Hyponatremia Hypophosphatemia Monitor renal function, I/O's and avoid nephrotoxins Renal and Urology consulted. Creatinine improving. Was On continuous bladder irrigations with Amicar. DCd per Dr. Cruz 04/17. Hematuria has restarted, Dr. Cruz changed santoyo out to 3 way 24 F catheter and manually irrigate Restarted Amicar CBI GI: Small bowel dilatation On Protonix 40 mg IV daily for GI prophylaxis. Small bowel follow-through - mild dilatation of small bowel however contrast does transition to: Within 4 hours. KUB - small bowel dilatation. Contrast rectum. Repeat 04/[address] abd/pelvis possible small bowel obstruction. GI following. Nepro advance as tolerated ID: Enterococcus faecalis bacteremia Proteus UTI Escherichia coli pneumonia Continue with abx ( Unasyn) Monitor for signs infections (fever and WBC) Pharmacy to adjust doses of abx per renal function. 04/10 blood cultures Enterococcus faecalis 3/ bottles. Check BC x 2 sets 04/10. 04/11 blood cultures no growth 04/10 UA positive Proteus 04/11 - sputum -Escherichia coli Influenza screening, strep pneumonia and Legionella urinary Ag negative. Follow up on urine cx, check sputum cx Wound care is following for sacral wound ulcers. Endo: Diabetes mellitus Continue SSI to medium scale with Accu-Chek q.4h for glycemic control. Continue detemir 7units BID Heme: Leukocytosis Normocytic anemia Monitor CBC and coags. MSK: Decubitus ulcer Santyl barrier cream twice a day. Wound care consulted GI prophylaxis with pantoprazole 40 mg daily and DVT prophylaxis with SCDs Heparin started 04/17/17, discontinued today due to gross hematuria Lines: Right subclavian CVL, Right radial Art line04/10- 04/17 Patient is critically ill with septic shock, resp failure, ARF, pneumonia, UTI. Currently off pressors but mental status will not permit extubation. Chest x- ray with bilateral infiltrates. Without ventilator support she will . We' ll consult palliative care to address goals of care including tracheostomy and PEG tube placement Level 3 Elmo Malik MD Apr 19, 2017 12:12
--- NOTE | 2017-04-19 13:51 | HHI.PR ---
Subjective Patient symptoms today Pt seen and examined. Urine now clear. On slow Amicar CBI. Objective Vital Signs Vital Signs Date Time Temp Pulse Resp B/P (MAP) Pulse Ox O2 Delivery O2 Flow Rate FiO2 04/19/17 11:37 99 40 04/19/17 10:00 96 04/19/17 08:38 99 40 04/19/17 08:00 98.3 96 19 131/71 (91) 100 04/19/17 08:00 96 04/19/17 08:00 40 04/19/17 06:00 93 04/19/17 04:13 100 40 04/19/17 04:00 40 04/19/17 04:00 101 04/19/17 04:00 98.6 101 19 142/56 (84) 99 04/19/17 02:00 82 04/19/17 00:00 92 04/19/17 00:00 40 04/19/17 00:00 98.2 92 17 138/72 (94) 99 04/18/17 23:51 100 40 04/18/17 22:00 89 04/18/17 20:08 98 40 04/18/17 20:00 99 04/18/17 20:00 98.4 99 16 100/57 (71) 99 04/18/17 20:00 40 04/18/17 16:07 100 40 04/18/17 16:00 97.8 89 12 128/58 (81) 99 04/18/17 13:58 100 40 Intake & Output 04/19/17 04/19/17 07:00 19:00 Intake Total 330 ml Output Total 1300 ml Balance -970 ml Tube Feeding 270 ml Other 60 ml Output Urine Total 1000 ml Stool Total 300 ml Result Diagram: 04/19/17 0545 04/19/17 0545 Objective Remarks Abd:soft,nt,nd Santoyo catheter irrigated and clots removed. 04/17 Abd:soft,nt,nd Santoyo catheter with david urine 04/18 Abd:soft,nt,nd Santoyo: attempted to irrigate santoyo at bedside but clotted off. Will need large bore 3way catheter. 04/19 Abd:soft,nt,nd Santoyo with clear urine Medications and IVs Current Medications Medications (Trade) Dose Ordered Sig/Meme Route Start Time Stop Time Status Last Admin Miscellaneous Information 1 [id number] XX 04/10/17 17:00 04/10/17 17:00 (Chlorhexidine 2% Cloth) Taper DAILY@04 TOP 04/11/17 04:00 04/07/18 03:59 04/19/17 04:00 (Chlorhexidine 2% Cloth) 3 pack UNSCH PRN TOP 04/10/17 17:00 (Leda-Colace) 1 tab BID PO 04/10/17 21:00 04/19/17 08:49 (Milk Of Magnesia Liq) 30 ml Q12H PRN PO 04/10/17 17:00 (Senokot) 17.2 mg Q12H PRN PO 04/10/17 17:00 (Dulcolax Supp) 10 mg DAILY PRN RECTAL 04/10/17 17:00 (Lactulose Liq) 30 ml DAILY PRN PO 04/10/17 17:00 Fentanyl Citrate 250 ml @ 5 mls/hr TITRATE PRN IV 04/10/17 17:15 04/12/17 08:52 Norepinephrine Bitartrate 250 ml @ 7.5 mls/hr TITRATE PRN IV 04/10/17 20:30 04/17/17 06:03 Vasopressin 40 units/Dextrose 100 ml @ 6 mls/hr [id number] IV 04/10/17 23:04 04/16/17 22:36 Midazolam HCl 100 ml @ 2 mls/hr TITRATE PRN IV 04/10/17 23:15 Propofol 100 ml @ 2.55 mls/hr TITRATE PRN IV 04/10/17 23:30 04/16/17 17:44 Sodium Chloride 1,000 ml @ 100 mls/hr Q10H IV 04/11/17 10:45 04/15/17 03:40 (D50w (Vial) Inj) 50 ml UNSCH PRN IV PUSH 04/11/17 10:45 (Glucagon Inj) 1 mg UNSCH PRN OTHER 04/11/17 10:45 (NovoLIN R SUPPLEMENTAL SCALE) 1 Q4H SQ 04/11/17 12:00 04/15/17 03:35 (Levemir Inj) 7 units Q12HR SQ 04/11/17 11:40 04/17/17 09:00 (Senna Liq) 8.8 mg DAILY PO 04/11/17 12:30 04/19/17 08:51 (Oscal-D 250-125) 250 mg Q12HR PO 04/11/17 14:30 04/19/17 08:49 (Fosrenol Chew) 500 mg TID CHEW 04/11/17 18:00 04/19/17 12:01 (Miralax) 17 gm DAILY PO 04/11/17 15:15 04/19/17 08:51 (Reglan Inj) 5 mg Q8HR IV PUSH 04/11/17 22:00 04/19/17 12:56 (Protonix Inj) 40 mg Q24H IV PUSH 04/11/17 16:00 04/18/17 16:00 Aminocaproic Acid 3000 mg/Sodium Chloride 3,012 ml @ 0 mls/hr UNSCH IRRIGATION 04/12/17 10:00 04/19/17 03:09 (Albuterol Neb) 2.5 mg Q2HR NEB PRN NEB 04/13/17 08:30 04/18/17 08:38 (Tears Naturale Opth Soln) 1 drop Q8HR EACH EYE 04/14/17 22:00 04/19/17 13:01 Ampicillin Sodium/ Sulbactam Sodium 3 gm/Sodium Chloride 100 ml @ 200 mls/hr Q12H IV 04/15/17 21:00 04/19/17 08:50 Miscellaneous Information D/C ICU ELECTROLYTE ORDERS... UNSCH PRN .XX 04/16/17 12:45 Miscellaneous Information ICU - CALL ORDERING PHYSIC... UNSCH PRN .XX 04/16/17 12:45 Potassium Chloride 100 ml @ 25 mls/hr UNSCH PRN IV 04/16/17 12:45 04/16/17 16:42 (K-Lyte Cl Eff) 50 meq UNSCH PRN PO 04/16/17 12:45 Potassium Chloride 100 ml @ 50 mls/hr UNSCH PRN IV 04/16/17 12:45 Magnesium Sulfate 4 gm/Sodium Chloride 108 ml @ 54 mls/hr UNSCH PRN IV 04/16/17 12:45 Magnesium Sulfate 2 gm/Sodium Chloride 104 ml @ 52 mls/hr UNSCH PRN IV 04/16/17 12:45 (Mag-Ox) 800 mg UNSCH PRN PO 04/16/17 12:45 Sodium Phosphate 30 mmol/Sodium Chloride 260 ml @ 43.333 mls/ hr UNSCH PRN IV 04/16/17 12:45 (K-Phos) 2,000 mg UNSCH PRN PO 04/16/17 12:45 Potassium Phosphate 30 mmol/ Sodium Chloride 260 ml @ 43.333 mls/ hr UNSCH PRN IV 04/16/17 12:45 Assessment and Plan Assessment and Plan 72 y.o female with respiratory failure and gross hematuria with ARF Will start Amicar CBI to help stop hematuria Will need to irrigate santoyo Q 4 hours to remove clots Ucx with GNR's. Continue Abx. 04/17 72 y.o female with respiratory failure and gross hematuria with ARF which is improving. Creatinine at 1.5 Titrate CBI to off as urine clears Cystoscopy once stable and off vent 04/18 72 y.o female with respiratory failure and gross hematuria Change santoyo out to 3 way 24 F catheter and manually irrigate Continue to hold Heparin Restart Amicar CBI 04/19 72 y.o female with respiratory failure and gross hematuria Hematuria now resolving on Amicar CBI; irrigate santoyo prn clots Continue to hold Heparin Contine Amicar CBI at slow rate Arash Cruz DO Apr 19, 2017 13:51
--- NOTE | 2017-04-19 14:17 | HHI.HCPN ---
Reason for visit a. To assist with evaluation and management of symptoms including: encephalopathy, dyspnea, debility b. To assist medical decision maker(s) with: better understanding of current medical conditions; weighing benefits/burdens of medical treatment options; making medical treatment decisions. . Subjective/Interval History Ms. Mackey was seen and assessed in [facility], room 527. Patient remains intubated on mechanical ventilator. She has been off sedation 48 hours but remains encephalopathic. Arouses slightly to verbal stimuli, wiggles toes bilaterally to touch. Patient does not respond to question; she does not follow commands. Afebrile. UA + Proteus on 04/10/17; Blood culture + Enterococcus faecalis; Sputum + Escherichia coli on 04/11/17. Repeat blood culture negative to date. Follow up chest xray on 04/18/18 showing slightly improved aeration = WBC: 22.6, hemoglobin 7.6, hematocrit 24.2, platelets 238, neutrophils 82.3% = Sodium: 132, potassium 3.8, chloride 98, carbon dioxide 23.3, glucose 100, calcium 8.3 = BUN: 42, creatinine 1.31, GFR 40 = Total bilirubin: 0.5, AST 47, ALT 22, alkaline phosphatase 526 = Total protein: 5.8, albumin 1.4 Hematuria resolving on - on [place] CBI . Family/friend interactions Family meeting with patient's daughter (Cheryl) to provide an update on the patient clinical condition and to clarify the medical treatment goals. The patient's two son's (Beck and Memo) were unable to attend the meeting. Messages were left for both Beck and Memo with palliative care contact information. Cheryl was appropriately tearful, describing the patient's acute decline in recent months. Tracheostomy /PEG tube placement were discussed. Cheryl states she has had many conversation with her mother and she wants everything done to stay alive. However, Cheryl also stated her mother wouldn't want extra-ordinary measures to be kept alive if she would be unable to recognize/converse with her family or be able to eat regular food. She would like to give her mother a few more days to see if she shows any neurological improvement. . Advance Directives Advance Directive Specifics Documented care wishes: Patient's daughter (Cheryl) stating she has been designated as the HCS decision- maker and will make copies available tomorrow at the scheduled family meeting. . Objective Vital Signs Date Time Temp Pulse Resp B/P (MAP) Pulse Ox O2 Delivery O2 Flow Rate FiO2 04/19/17 11:37 99 40 04/19/17 10:00 96 04/19/17 08:38 99 40 04/19/17 08:00 98.3 96 19 131/71 (91) 100 04/19/17 08:00 96 04/19/17 08:00 40 04/19/17 06:00 93 04/19/17 04:13 100 40 04/19/17 04:00 40 04/19/17 04:00 101 04/19/17 04:00 98.6 101 19 142/56 (84) 99 04/19/17 02:00 82 04/19/17 00:00 92 04/19/17 00:00 40 04/19/17 00:00 98.2 92 17 138/72 (94) 99 04/18/17 23:51 100 40 04/18/17 22:00 89 04/18/17 20:08 98 40 04/18/17 20:00 99 04/18/17 20:00 98.4 99 16 100/57 (71) 99 04/18/17 20:00 40 04/18/17 16:07 100 40 04/18/17 16:00 97.8 89 12 128/58 (81) 99 Intake & Output 04/19/17 04/19/17 07:00 19:00 Intake Total 330 ml Output Total 1300 ml Balance -970 ml Tube Feeding 270 ml Other 60 ml Output Urine Total 1000 ml Stool Total 300 ml Physical Exam CONSTITUTIONAL/GENERAL: This is an obese, elderly female patient currently intubated on a chemical ventilator TUBES/LINES/DRAINS: PIV, CVL, OGT, ETT, Rectal tube, Podus boots, Cuellar catheter , soft restraints SKIN: No jaundice, rashes, or lesions. Ecchymoses on upper extremities. No wounds seen anteriorly. Skin temperature appropriate. Not diaphoretic. HEAD: Atraumatic. Normocephalic. EYES: Pupils 2mm, equal and sluggish. . No scleral icterus. No injection or drainage. Fundi not examined. ENT: Hearing grossly normal. Nose without bleeding or purulent drainage. Mucous membranes dry NECK: Trachea midline. CARDIOVASCULAR: Regular rate and rhythm without murmurs, gallops, or rubs. No JVD. Peripheral pulses symmetric. RESPIRATORY/CHEST: Intubated on mechanical ventilation. Scattered rhonchi. GASTROINTESTINAL: Abdomen soft, non-tender, nondistended. Bowel sounds present. GENITOURINARY: Without palpable bladder distension. Cuellar catheter with CBI. + hematuria MUSCULOSKELETAL: Extremities without clubbing or cyanosis. +2 edema. LYMPHATICS: No palpable cervical or supraclavicular adenopathy. NEUROLOGICAL: Off sedation x 24 hours. Lethargic, obtunded. Arouses to verbal stimuli PSYCHIATRIC: Unable to assess secondary to clinical condition. . Diagnostic Tests Laboratory Laboratory Tests Test 04/18/17 05:10 04/19/17 05:45 White Blood Count 25.4 TH/MM3 (4.0-11.0) 22.6 TH/MM3 (4.0-11.0) Red Blood Count 2.75 MIL/MM3 (4.00-5.30) 2.77 MIL/MM3 (4.00-5.30) Hemoglobin 7.5 GM/DL (11.6-15.3) 7.6 GM/DL (11.6-15.3) Hematocrit 24.0 % (35.0-46.0) 24.2 % (35.0-46.0) Mean Corpuscular Volume 87.4 FL (80.0-100.0) 87.3 FL (80.0-100.0) Mean Corpuscular Hemoglobin 27.3 PG (27.0-34.0) 27.5 PG (27.0-34.0) Mean Corpuscular Hemoglobin Concent 31.3 % (32.0-36.0) 31.5 % (32.0-36.0) Red Cell Distribution Width 19.7 % (11.6-17.2) 19.1 % (11.6-17.2) Platelet Count 223 TH/MM3 (150-450) 238 TH/MM3 (150-450) Mean Platelet Volume 9.7 FL (7.0-11.0) 9.2 FL (7.0-11.0) Neutrophils (%) (Auto) 83.7 % (16.0-70.0) 82.3 % (16.0-70.0) Lymphocytes (%) (Auto) 13.5 % (9.0-44.0) 13.8 % (9.0-44.0) Monocytes (%) (Auto) 2.5 % (0.0-8.0) 2.8 % (0.0-8.0) Eosinophils (%) (Auto) 0.2 % (0.0-4.0) 0.9 % (0.0-4.0) Basophils (%) (Auto) 0.1 % (0.0-2.0) 0.2 % (0.0-2.0) Neutrophils # (Auto) 21.3 TH/MM3 (1.8-7.7) 18.6 TH/MM3 (1.8-7.7) Lymphocytes # (Auto) 3.4 TH/MM3 (1.0-4.8) 3.1 TH/MM3 (1.0-4.8) Monocytes # (Auto) 0.6 TH/MM3 (0-0.9) 0.6 TH/MM3 (0-0.9) Eosinophils # (Auto) 0.1 TH/MM3 (0-0.4) 0.2 TH/MM3 (0-0.4) Basophils # (Auto) 0.0 TH/MM3 (0-0.2) 0.0 TH/MM3 (0-0.2) CBC Comment AUTO DIFF AUTO DIFF Differential Total Cells Counted 100 100 Neutrophils % (Manual) 87 % (16-70) 88 % (16-70) Band Neutrophils % 1 % (0-6) 6 % (0-6) Lymphocytes % 9 % (9-44) 3 % (9-44) Basophils % 1 % (0-2) Neutrophils # (Manual) 22.9 TH/MM3 (1.8-7.7) 21.5 TH/MM3 (1.8-7.7) Metamyelocytes 2 % (0-1) Differential Comment FINAL DIFF MANUAL FINAL DIFF MANUAL Platelet Estimate NORMAL (NORMAL) NORMAL (NORMAL) Platelet Morphology Comment ENLARGED (NORMAL) ENLARGED (NORMAL) Blood Urea Nitrogen 44 MG/DL (7-18) 42 MG/DL (7-18) Creatinine 1.52 MG/DL (0.50-1.00) 1.31 MG/DL (0.50-1.00) Random Glucose 74 MG/DL (74-106) 100 MG/DL (74-106) Total Protein 5.8 GM/DL (6.4-8.2) 5.8 GM/DL (6.4-8.2) Albumin 1.4 GM/DL (3.4-5.0) 1.4 GM/DL (3.4-5.0) Calcium Level 7.9 MG/DL (8.5-10.1) 8.3 MG/DL (8.5-10.1) Alkaline Phosphatase 571 U/L (45-117) 526 U/L (45-117) Aspartate Amino Transf (AST/SGOT) 63 U/L (15-37) 47 U/L (15-37) Alanine Aminotransferase (ALT/SGPT) 20 U/L (10-53) 22 U/L (10-53) Total Bilirubin 0.7 MG/DL (0.2-1.0) 0.5 MG/DL (0.2-1.0) Sodium Level 129 MEQ/L (136-145) 132 MEQ/L (136-145) Potassium Level 4.0 MEQ/L (3.5-5.1) 3.8 MEQ/L (3.5-5.1) Chloride Level 96 MEQ/L (98-107) 98 MEQ/L (98-107) Carbon Dioxide Level 23.0 MEQ/L (21.0-32.0) 23.3 MEQ/L (21.0-32.0) Anion Gap 10 MEQ/L (5-15) 11 MEQ/L (5-15) Estimat Glomerular Filtration Rate 33 ML/MIN (>89) 40 ML/MIN (>89) Monocytes % 2 % (0-8) Myelocytes 1 % (0-0) Toxic Granulation 2+ (NORMAL) Result Diagram: 04/19/17 0545 04/19/17 0545 Microbiology Microbiology Date/Time Source Procedure Growth Status 04/18/17 07:35 Blood Peripheral Aerobic Blood Culture - Preliminary NO GROWTH IN 1 DAY Resulted 04/18/17 07:35 Blood Peripheral Anaerobic Blood Culture - Preliminary NO GROWTH IN 1 DAY Resulted 04/18/17 07:20 Blood Peripheral Aerobic Blood Culture - Preliminary NO GROWTH IN 1 DAY Resulted 04/18/17 07:20 Blood Peripheral Anaerobic Blood Culture - Preliminary NO GROWTH IN 1 DAY Resulted Procedures 04/10/17: Intubation 04/10/17: Central line placement 04/10/17: Right radial arterial line . Assessment and Plan Disease Oriented Problem List: (1) PAROXYSMAL ATRIAL FIBRILLATION (2) HTN (hypertension) (3) LAXMI on CPAP (4) History of CVA with residual deficit (5) Elevated troponin I level (6) Pneumonia (7) Acute respiratory failure (8) Acute renal failure (9) Sepsis (10) UTI (urinary tract infection) (11) Diabetes mellitus (12) Leukocytosis Symptom Scale: (1) Debility (2) Encephalopathy (3) Dyspnea Pertinent Non-Medical Issues Psychosocial: Patient was born in [place], moving to [place] in 1978. She has 3 sisters and 2 brothers. 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 Her in 2003 from lung cancer, together she and her had one daughter. The patient has a total of 4 biological children children. Lamin Luna, Beck) who live locally. Her daughter, Noemí, in January,. Spiritual: Je[employer] ricardo Legal: Per [place] statutes, in the absence of written advanced directives healthcare proxy decision making would fall to the majority of the patient's living adult children (Lamin Luna, Beck). The patient's daughter (Cheryl) states her mother has designated her as the healthcare surrogate decision maker ; she states she is willing to provide copies of this documentation. Ethical issues impacting care: No known ethical issues impacting care at this time. . Important Contacts Cheryl Fan, daughter: [phone] or [phone] Noemí, daughter: [phone] Beck, son: [phone] Memo, son: [phone] . Prognosis Ms. Mackey is a 71-year-old female patient with a complex medical history that includes DM, hypothyroidism, anemia, gout, hypertension, hyperlipoproteinemia, history of CVA with residual left-sided weakness, chronic kidney insufficiency, atrial fibrillation and obstructive sleep apnea. This is the patient's third known hospitalization for management of sepsis since October,. The patient has been intubated for 9 days, she is not tolerating weaning. She remains encephalopathic off sedation 24 hours. Chest x-ray with bilateral infiltrates. Patient is critically ill with septic shock, respiratory failure, ARF, pneumonia, UTI. If goals are to remain aggressive, patient will require trach and PEG tube placement. . Code Status: Full Code Plan * FULL CODE. * Decision-making: Per [place] statutes, in the absence of written advanced directives healthcare proxy decision making would fall to the majority of the patient's living adult children (Cheryl, Lamin, Beck). * Patient's daughter (Cheryl) has DURABLE POWER OF CUT OUT STITCHER for finances only. She is not the healthcare proxy decision maker. * Family meeting with patient's daughter (Cheryl) to provide an update on the patient clinical condition and to clarify the medical treatment goals. The patient's two son's (Beck and Memo) were unable to attend the meeting. Messages were left for both Beck and Memo with palliative care contact information. Cheryl was appropriately tearful, describing the patient's acute decline in recent months. Tracheostomy /PEG tube placement were discussed. Cheryl states she has had many conversation with her mother and she wants everything done to stay alive. However, Cheryl also stated her mother wouldn't want extra-ordinary measures to be kept alive if she would be unable to recognize/converse with her family or be able to eat regular food. She would like to give her mother a few more days to see if she shows any neurological improvement. She will discuss with her 2 brothers over the weekend. * Discussed with bedside nurse, Nell, and Dr. Malik * Patient remains critically ill with septic shock, respiratory failure, ARF, pneumonia and UTI. She no longer requires pressor support but is unable to wean from mechanical ventilator. Patient remains encephalopathic off sedation 24 hours. If goals are to remain aggressive the patient will require tracheostomy and PEG tube placement. Transitioning to comfort focused care would also be an appropriate decision at this time. * Symptom management - encephalopathy: CT head on 04/10/17 showed no acute intracranial abnormalities or significant interval change. Patient remains encephalopathic off sedation x 48 hours. * Symptom management - debility: Patient with a complex medical history that includes DM, hypothyroidism, anemia, gout, hypertension, hyperlipoproteinemia, history of CVA with residual left-sided weakness, chronic kidney insufficiency, atrial fibrillation and obstructive sleep apnea. This is the patient's third known hospitalization for management of sepsis since October,. She is significantly deconditioned, having experienced an acute decline in the past 6 months. * Palliative care will continue to follow this patient throughout her hospitalization to establish trust, assist with symptom management and clarification of medical treatment goals. . Attestation To help prompt me to consider important information that might be impacting today's encounter and assessment, information from prior notes written by myself or my colleagues may have been "brought forward" into today's note. My signature on this note, however, is an attestation that I personally performed the exam, history, and/or decision-making noted today, and, unless otherwise indicated, the interactions with patient, family, and staff as well as the review of records all occurred today. I also attest that the listed assessment and stated plan reflect my best clinical judgment today based on the combination of historical information, prior notes, and today's exam/ interactions. When time spent is documented, it refers only to time spent today by the signer, or if indicated, combined time spent today by collaborating physician/nurse practitioner. . Margi Mederos Apr 19, 2017 14:16
--- NOTE | 2017-04-19 16:58 | HHI.PR ---
Addendum to Inpatient Note Additional Information pt seen around 1430 full note to follow Vicki Ying MD Apr 19, 2017 16:58
[2017-04-19] MEDS: PANTOPRAZOLE SODIUM 40 MG VIAL IV PUSH SCH (17:39)
[2017-04-19] MEDS: fentaNYL DRIP 250 ML IV PRN (19:46)
--- NOTE | 2017-04-19 20:28 | HHI.IDPN ---
Subjective Subjective Remarks delayed entry pt seen around 1430 remains on vent on pressors tolerating TF at 20 cc/hr palliative care is now involved temps normal WBC slightly improved Off sedation x 2 days and unresponsive Antibiotics unasyn Allergies: Coded Allergies: *MDRO Multi-Drug Resistant Organism (Verified Adverse Reaction, Unknown, ) MRSA PCR Screen POSITIVE - 10/24/2016 MRSA (sputum)-10/24/16 Objective . Vital Signs Date Time Temp Pulse Resp B/P (MAP) Pulse Ox O2 Delivery O2 Flow Rate FiO2 04/19/17 19:41 99 40 04/19/17 18:00 87 04/19/17 16:09 100 40 04/19/17 16:00 40 04/19/17 16:00 98.8 86 14 130/60 (83) 99 04/19/17 16:00 86 04/19/17 14:00 99 04/19/17 12:00 100 04/19/17 12:00 40 04/19/17 12:00 98.2 89 14 128/58 (81) 100 04/19/17 11:37 99 40 04/19/17 10:00 96 04/19/17 08:38 99 40 04/19/17 08:00 98.3 96 19 131/71 (91) 100 04/19/17 08:00 96 04/19/17 08:00 40 04/19/17 06:00 93 04/19/17 04:13 100 40 04/19/17 04:00 40 04/19/17 04:00 101 04/19/17 04:00 98.6 101 19 142/56 (84) 99 04/19/17 02:00 82 04/19/17 00:00 92 04/19/17 00:00 40 04/19/17 00:00 98.2 92 17 138/72 (94) 99 04/18/17 23:51 100 40 04/18/17 22:00 89 04/19/17 04/19/17 04/20/17 15:00 23:00 07:00 Intake Total 100 ml 347 ml Output Total 750 ml Balance 100 ml -403 ml Intake IV Total 100 ml Tube Feeding 347 ml Output Urine Total 750 ml . Laboratory Tests Test 04/18/17 05:10 04/19/17 05:45 White Blood Count 25.4 TH/MM3 22.6 TH/MM3 Red Blood Count 2.75 MIL/MM3 2.77 MIL/MM3 Hemoglobin 7.5 GM/DL 7.6 GM/DL Hematocrit 24.0 % 24.2 % Mean Corpuscular Volume 87.4 FL 87.3 FL Mean Corpuscular Hemoglobin 27.3 PG 27.5 PG Mean Corpuscular Hemoglobin Concent 31.3 % 31.5 % Red Cell Distribution Width 19.7 % 19.1 % Platelet Count 223 TH/MM3 238 TH/MM3 Mean Platelet Volume 9.7 FL 9.2 FL Neutrophils (%) (Auto) 83.7 % 82.3 % Lymphocytes (%) (Auto) 13.5 % 13.8 % Monocytes (%) (Auto) 2.5 % 2.8 % Eosinophils (%) (Auto) 0.2 % 0.9 % Basophils (%) (Auto) 0.1 % 0.2 % Neutrophils # (Auto) 21.3 TH/MM3 18.6 TH/MM3 Lymphocytes # (Auto) 3.4 TH/MM3 3.1 TH/MM3 Monocytes # (Auto) 0.6 TH/MM3 0.6 TH/MM3 Eosinophils # (Auto) 0.1 TH/MM3 0.2 TH/MM3 Basophils # (Auto) 0.0 TH/MM3 0.0 TH/MM3 CBC Comment AUTO DIFF AUTO DIFF Differential Total Cells Counted 100 100 Neutrophils % (Manual) 87 % 88 % Band Neutrophils % 1 % 6 % Lymphocytes % 9 % 3 % Basophils % 1 % Neutrophils # (Manual) 22.9 TH/MM3 21.5 TH/MM3 Metamyelocytes 2 % Differential Comment FINAL DIFF MANUAL FINAL DIFF MANUAL Platelet Estimate NORMAL NORMAL Platelet Morphology Comment ENLARGED ENLARGED Monocytes % 2 % Myelocytes 1 % Toxic Granulation 2+ Laboratory Tests Test 04/18/17 05:10 04/19/17 05:45 Blood Urea Nitrogen 44 MG/DL 42 MG/DL Creatinine 1.52 MG/DL 1.31 MG/DL Random Glucose 74 MG/DL 100 MG/DL Total Protein 5.8 GM/DL 5.8 GM/DL Albumin 1.4 GM/DL 1.4 GM/DL Calcium Level 7.9 MG/DL 8.3 MG/DL Alkaline Phosphatase 571 U/L 526 U/L Aspartate Amino Transf (AST/SGOT) 63 U/L 47 U/L Alanine Aminotransferase (ALT/SGPT) 20 U/L 22 U/L Total Bilirubin 0.7 MG/DL 0.5 MG/DL Sodium Level 129 MEQ/L 132 MEQ/L Potassium Level 4.0 MEQ/L 3.8 MEQ/L Chloride Level 96 MEQ/L 98 MEQ/L Carbon Dioxide Level 23.0 MEQ/L 23.3 MEQ/L Anion Gap 10 MEQ/L 11 MEQ/L Estimat Glomerular Filtration Rate 33 ML/MIN 40 ML/MIN Microbiology Date/Time Source Procedure Growth Status 04/18/17 07:35 Blood Peripheral Aerobic Blood Culture - Preliminary NO GROWTH IN 1 DAY Resulted 04/18/17 07:35 Blood Peripheral Anaerobic Blood Culture - Preliminary NO GROWTH IN 1 DAY Resulted 04/18/17 07:20 Blood Peripheral Aerobic Blood Culture - Preliminary NO GROWTH IN 1 DAY Resulted 04/18/17 07:20 Blood Peripheral Anaerobic Blood Culture - Preliminary NO GROWTH IN 1 DAY Resulted Imaging Last Impressions Chest X-Ray 04/18/17 0600 Signed Impressions: Service Date/Time: April 03:56 - CONCLUSION: Slight improvement in aeration. King Shi MD Abdomen X-Ray 04/15/17 1405 Signed Impressions: Service Date/Time: Saturday, April 15, 2017 15:15 - CONCLUSION: 1. Gaseous distension predominantly small bowel as described above. 2. Nasogastric tube does have the stomach decompressed. Everardo Martinez MD FACR Small Bowel X-Ray 04/12/17 0000 Signed Impressions: Service Date/Time: Wednesday, April 12, 2017 14:36 - CONCLUSION: 1. Mild small bowel dilatation without obstruction. Contrast reaches distal colon by 4 hours. Abrahan Gómez MD Head CT 04/10/17 1648 Signed Impressions: Service Date/Time: Monday, April 10, 2017 17:11 - CONCLUSION: 1. No acute intracranial abnormality or significant interval change. Daniel Carvajal MD Abdomen/Pelvis CT 04/10/17 1625 Signed Impressions: Service Date/Time: Monday, April 10, 2017 17:15 - CONCLUSION: Mild fluid and gaseous distention of small bowel, mainly the proximal small bowel. No acute focal findings in the abdomen or pelvis on noncontrast evaluation. King Shi MD Chest CT 04/10/17 0000 Signed Impressions: Service Date/Time: Monday, April 10, 2017 17:15 - CONCLUSION: 1. ETT just above the [place]. 2. Dense right lower lobe airspace consolidation with diffuse patchy nodular airspace disease throughout the remainder of the right lung and at the extreme left lung base. Findings are most consistent with pneumonia, atypical infection or aspiration. 3. No significant effusion or pneumothorax. Daniel Carvajal MD Physical Exam CONSTITUTIONAL/GENERAL: This is a morbidly obese patient, in no apparent distress. Int'd on [facility] vent'n TUBES/LINES/DRAINS: SKIN: No jaundice, rashes, or lesions. Skin temperature appropriate. Not diaphoretic. CARDIOVASCULAR: Regular rate and rhythm without murmurs, gallops, or rubs. No JVD. Peripheral pulses symmetric. RESPIRATORY/CHEST: Symmetric, unlabored respirations. Clear to auscultation. Breath sounds equal bilaterally. No wheezes, rales, or rhonchi. GASTROINTESTINAL: Abdomen soft, no raction feliciano palpation; moderately distended. Less tympanic in mid abdomen No hepato-splenomegaly, or palpable masses. No guarding. Bowel sounds present. GENITOURINARY: Without palpable bladder distension. Cuellar catheter in place; urine slightly pinkish, almost clear MUSCULOSKELETAL: Extremities without clubbing, cyanosis, severe edema persists NEUROLOGICAL: off sedation; non responsive PSYCHIATRIC: Unable to assess Assessment & Plan Remarks Assessment and Plan sepsis UTI, Proteus Gross hematuria: resolving Acute VDRF ARF: improving - some eosinophilia is present ? PNA - sputum with E.coli Enterococcal high grade bacteremia - S to ampicillin - 2 D echo negative for vegetation - repeat blood clx negative Ileus, now having diarrhea no e/o small bowel obstruction - C.diff negative enteric pathogens negative Critically ill, unstable persistent leukocytosis - slowly iproving Hypothermic - new ? sepsis Severe encephalopahty - not waking up off sedation Rec's: cont unasyn monitor WBC fu blood clx monitor temps rechk sputum clc, UA/C+S - fu urine eosinophils Vicki Ying MD Apr 19, 2017 20:28
[2017-04-20] VITALS (19 sets, daily range): BP systolic 109–142; BP diastolic 53–64; PULSE 75–100; RESP 2–14; TEMP 97.9–99.1; O2SAT 97–100
[2017-04-20] MEDS: RESP: ALBUTEROL 2.5 MG/3 ML NEB (PRN) NEB ×2 (03:14→20:42)
[2017-04-20] MEDS: INSULIN NovoLIN REGULAR SUPPLEMENTAL SCALE SQ SCH ×6 (04:00→19:25)
[2017-04-20] MEDS: CHLORHEXIDINE GLUCONATE 2 % 1 PACK (2 CLOTHS) TOP SCH ×2 (04:00→19:27)
[2017-04-20 06:26] LABS: AUTOMATED NEUTROPHIL # 18.5 TH/MM3 (1.8-7.7); BASOPHIL % 0.2 % (0.0-2.0); EOSINOPHIL # 0.2 TH/MM3 (0-0.4); EOSINOPHIL % 0.9 % (0.0-4.0); HEMATOCRIT 22.7 % (35.0-46.0); LYMPH % 16.6 % (9.0-44.0); LYMPHOCYTE # 3.9 TH/MM3 (1.0-4.8); MEAN CELL VOLUME 88.2 FL (80.0-100.0); MEAN CORPUSCULAR HEMOGLOBIN 28.2 PG (27.0-34.0); MONO % 3.9 % (0.0-8.0); NEUT % 78.4 % (16.0-70.0); PLATELET COUNT 245 TH/MM3 (150-450); RED BLOOD COUNT 2.58 MIL/MM3 (4.00-5.30); RED CELL DISTRIBUTION WIDTH 19.5 % (11.6-17.2); WHITE BLOOD COUNT 23.5 TH/MM3 (4.0-11.0)
[2017-04-20 06:29] LABS: HEMO FLAGS AUTO DIFF
--- NOTE | 2017-04-20 06:29 | RADRPT ---
EXAM DATE/TIME: 04/20/2017 04:32 [facility] COMPARISON: CHEST SINGLE AP, April 18, 2017, 3:56. INDICATIONS : Shortness of breath, possible pulmonary disease. MEDICAL HISTORY : Hypertension. Diabetes mellitus type II. Hernia SURGICAL HISTORY : Appendectomy. Cholecystectomy. ENCOUNTER: Subsequent ACUITY: 1 week PAIN SCORE: Non-responsive. LOCATION: Bilateral chest FINDINGS: The ET tube, NG tube, and right subclavian line are well placed. The heart size is normal. There cont inue to be mixed interstitial and alveolar consolidation being most prominent in the perihilar region s. Aeration of the lungs has improved especially at the right base. CONCLUSION: Persistent but improving diffuse consolidation likely resenting improving edema. King Brown MD on April 20, 2017 at 6:26 Board Certified Radiologist. This report was verified electronically.
[2017-04-20 06:35] LABS: ANION GAP 6 MEQ/L (5-15); AST (GOT) 36 U/L (15-37); BICARBONATE 25.6 MEQ/L (21.0-32.0); BLOOD UREA NITROGEN 44 MG/DL (7-18); CHLORIDE 102 MEQ/L (98-107); GLOMERULAR FILTRATION RATE 40 ML/MIN (>89); POTASSIUM 3.5 MEQ/L (3.5-5.1); SODIUM (NA) 134 MEQ/L (136-145)
[2017-04-20 06:38] LABS: ALKALINE PHOSPHATASE 518 U/L (45-117); ALT (GPT) 21 U/L (10-53); TOTAL BILIRUBIN ADULT 0.4 MG/DL (0.2-1.0)
[2017-04-20] MEDS: ARTIFICIAL TEARS OPTH SOLN 15 ML BTL EACH EYE SCH ×3 (06:38→19:27)
[2017-04-20] MEDS: METOCLOPRAMIDE HCL 10 MG/2 ML VIAL IV PUSH SCH ×3 (06:38→19:27)
[2017-04-20] MEDS: VASOPRESSIN INJ 40 UNITS in DEXTROSE 5% IN WATER 100ML INJ 98 ML IV SCH ×4 (07:04→19:28)
[2017-04-20] MEDS: POLYETHYLENE GLYCOL 17 GM PKG PO SCH (08:08)
[2017-04-20] MEDS: SENNOSIDES SYRUP 8.8 MG/5 ML CUP PO SCH (08:08)
[2017-04-20] MEDS: DOCUSATE SODIUM 50 MG/SENNA 8.6 MG TAB PO SCH ×2 (08:09→19:26)
[2017-04-20] MEDS: LANTHANUM CARBONATE 500 MG CHEWABLE TABLET CHEW SCH ×3 (08:09→17:11)
[2017-04-20] MEDS: AMPICILLIN-SULBACTAM INJ 3 GM in SODIUM CHLORIDE 0.9% INJ 100 ML IV SCH ×2 (08:09→19:26)
[2017-04-20] MEDS: CALCIUM/VITAMIN D 250 MG/125 U TAB PO SCH ×2 (08:09→19:26)
[2017-04-20 09:42] LABS: BACTERIA, URINE FEW /hpf; BLOOD, URINE MOD (NEG); COMMENT (UR) CATH-CULTURE IND; CULTURE IF INDICATED CATH CULTURE IND; GLUCOSE,URINE NEG (NEG); KETONE, URINE NEG (NEG); MUCUS URINE FEW /lpf (OCC); NITRITE,URINE NEG (NEG); PH, URINE 5.5 (5.0-8.5); SQUAMOUS EPITHELIAL CELL URINE <1 /hpf (0-5); URINE COLOR COLORLESS (YELLW/STRAW)
[2017-04-20 11:12] LABS: BANDS 5 % (0-6); EOSINOPHILS 2 % (0-4); METAMYELOCYTES 1 % (0-1); MYELOCYTES 2 % (0-0); NEUTROPHIL # MANUAL DIFF 19.7 TH/MM3 (1.8-7.7); POLYS (SEG NEUTROPHILS) 76 % (16-70); WBC DIFF SAMPLE 100
[2017-04-20 11:13] LABS: PLATELET ESTIMATE SMEAR NORMAL (NORMAL); PLATELET MORPHOLOGY ENLARGED (NORMAL); SCAN/DIFF FINAL DIFF MANUAL; TOXIC GRANULATION 2+ (NORMAL)
--- NOTE | 2017-04-20 11:39 | HHI.NPPN ---
Subjective History of Present Illness 72-year-old female known to me from her last admission when she was admitted in October of this year with past medical history of hypertension, diabetes mellitus, chronic kidney disease, history of cerebrovascular accident, hyperlipidemia, sleep apnea, atrial fibrillation, was admitted with altered mental status. I was called to see the patient because of elevated BUN and creatinine. I saw her when she was here in October and at that time her creatinine was as high as 2.8 and then it improved to around 1.4-1.6, which is probably her baseline. Additional Remarks Patient remain on the vent, sedated, and unresponsive Review of Systems General General Remarks Intubated and sedated. Objective Data Data Vital Signs Date Time Temp Pulse Resp B/P (MAP) Pulse Ox O2 Delivery O2 Flow Rate FiO2 04/20/17 11:22 100 40 04/20/17 11:18 100 35 04/20/17 10:00 81 04/20/17 08:15 98 40 04/20/17 08:00 98.6 91 8 128/60 (82) 100 04/20/17 08:00 91 04/20/17 08:00 40 04/20/17 06:00 86 04/20/17 04:00 40 04/20/17 04:00 91 04/20/17 04:00 99.1 91 14 124/60 (81) 100 04/20/17 03:14 100 40 04/20/17 02:00 86 04/20/17 01:40 100 40 04/20/17 00:00 98.5 75 2 109/53 (71) 100 04/20/17 00:00 75 04/20/17 00:00 40 04/19/17 22:35 100 40 04/19/17 22:00 73 04/19/17 20:01 98.1 111 17 152/67 (95) 100 04/19/17 20:00 105 04/19/17 20:00 40 04/19/17 19:41 99 40 04/19/17 18:00 87 04/19/17 16:09 100 40 04/19/17 16:00 40 04/19/17 16:00 98.8 86 14 130/60 (83) 99 04/19/17 16:00 86 04/19/17 14:00 99 04/19/17 12:00 100 04/19/17 12:00 40 04/19/17 12:00 98.2 89 14 128/58 (81) 100 -: 04/20/17 0530 04/20/17 0530 Microbiology 04/20/17 Urine Culture, Received Pending Physical Exam Eyes Eye Exam: Pupils Equal Throat Throat Exam: Oral Mucosa [place] & Moist Neck Neck Exam: Neck Supple Pulmonary Resp Exam: Rhonchi, Decreased Bases, Diminished Breath Sounds, Poor Inspiratory Effort Cardiology CV Exam: Regular, Normal Sinus Rhythm Gastrointestinal/Abdomen GI Exam: Soft, Non-Tender, Bowel Sounds Present, Distended Extremeties Extremities Exam: Moderate Edema, Pitting Edema Neurologic Neuro Exam: Sedated Assessment/Plan Assessment Summary: HIRAM/Acute Renal Failure, Hypotension, CKD Stage III Problem List: (1) Dyspnea ICD Codes: R06.00 - Dyspnea, unspecified Status: Acute (2) Diabetes mellitus ICD Codes: E11.9 - Type 2 diabetes mellitus without complications Status: Chronic (3) Leukocytosis ICD Codes: D72.829 - Elevated white blood cell count, unspecified Status: Resolved (4) Encephalopathy ICD Codes: G93.40 - Encephalopathy, unspecified Status: Acute (5) Pneumonia ICD Codes: J18.9 - Pneumonia, unspecified organism Status: Acute (6) Acute respiratory failure ICD Codes: J96.00 - Acute respiratory failure, unspecified whether with hypoxia or hypercapnia Status: Acute (7) Anemia ICD Codes: D64.9 - Anemia, unspecified Status: Acute (8) Sepsis ICD Codes: A41.9 - Sepsis, unspecified organism Status: Resolved (9) UTI (urinary tract infection) ICD Codes: N39.0 - Urinary tract infection, site not specified Status: Resolved (10) Acute renal failure ICD Codes: N17.9 - Acute kidney failure, unspecified Status: Acute (11) Acute worsening of stage 3 chronic kidney disease ICD Codes: N18.3 - Chronic kidney disease, stage 3 (moderate) Status: Acute Plan Patient has chronic kidney disease. The baseline Creatinine is 1.7-1.8. Now develop HIRAM, possibly related to Hypotension and ATN. Has sepsis and UTI, BP is low, on pressors. Has hematuria, and the urine is getting more clear.. Creatinine 1.3 now, stable. Continue antibiotics.Avoid Nephrotoxins. Follow the Vanco. level. Continue IVF and antibiotics. Urology following hematuria Follow the urine out put and BMP. Problem Qualifiers (1) Pneumonia: Qualified Codes: J18.9 - Pneumonia, unspecified organism (2) Acute respiratory failure: Qualified Codes: J96.00 - Acute respiratory failure, unspecified whether with hypoxia or hypercapnia (3) Anemia: Qualified Codes: D64.9 - Anemia, unspecified (4) Sepsis: Qualified Codes: A41.9 - Sepsis, unspecified organism (5) UTI (urinary tract infection): Qualified Codes: N39.0 - Urinary tract infection, site not specified (6) Acute renal failure: Qualified Codes: N17.9 - Acute kidney failure, unspecified Kerwin Hurt MD Apr 20, 2017 11:38
--- NOTE | 2017-04-20 12:24 | HHI.PR ---
Subjective Patient symptoms today Pt intubated and sedated. Urine clear on slow Amicar drip. Objective Vital Signs Vital Signs Date Time Temp Pulse Resp B/P (MAP) Pulse Ox O2 Delivery O2 Flow Rate FiO2 04/20/17 12:00 98.6 89 12 142/64 (90) 97 04/20/17 12:00 40 04/20/17 12:00 89 04/20/17 11:22 100 40 04/20/17 11:18 100 35 04/20/17 10:00 81 04/20/17 08:15 98 40 04/20/17 08:00 98.6 91 8 128/60 (82) 100 04/20/17 08:00 91 04/20/17 08:00 40 04/20/17 06:00 86 04/20/17 04:00 40 04/20/17 04:00 91 04/20/17 04:00 99.1 91 14 124/60 (81) 100 04/20/17 03:14 100 40 04/20/17 02:00 86 04/20/17 01:40 100 40 04/20/17 00:00 98.5 75 2 109/53 (71) 100 04/20/17 00:00 75 04/20/17 00:00 40 04/19/17 22:35 100 40 04/19/17 22:00 73 04/19/17 20:01 98.1 111 17 152/67 (95) 100 04/19/17 20:00 105 04/19/17 20:00 40 04/19/17 19:41 99 40 04/19/17 18:00 87 04/19/17 16:09 100 40 04/19/17 16:00 40 04/19/17 16:00 98.8 86 14 130/60 (83) 99 04/19/17 16:00 86 04/19/17 14:00 99 Intake & Output 04/20/17 04/20/17 07:00 19:00 Intake Total 539 ml Output Total 600 ml Balance -61 ml Intake IV Total 100 ml Tube Feeding 379 ml Other 60 ml Output Urine Total 600 ml Result Diagram: 04/20/1730 04/20/17 0530 Imaging Last 24 hours Impressions Chest X-Ray 04/20/17 06 Signed Impressions: Service Date/Time: Thursday, April 20, 2017 04:32 - CONCLUSION: Persistent but improving diffuse consolidation likely resenting improving edema. King Brown MD Objective Remarks Abd:soft,nt,nd Santoyo catheter irrigated and clots removed. 04/17 Abd:soft,nt,nd Santoyo catheter with david urine 04/18 Abd:soft,nt,nd Santoyo: attempted to irrigate santoyo at bedside but clotted off. Will need large bore 3way catheter. 04/19 Abd:soft,nt,nd Santoyo with clear urine 04/20 04/19 Abd:soft,nt,nd Santoyo with clear urine Medications and IVs Current Medications Medications (Trade) Dose Ordered Sig/Meme Route Start Time Stop Time Status Last Admin Miscellaneous Information 1 [id number] XX 04/10/17 17:00 04/10/17 17:00 (Chlorhexidine 2% Cloth) Taper DAILY@04 TOP 04/11/17 04:00 04/07/18 03:59 04/20/17 04:00 (Chlorhexidine 2% Cloth) 3 pack UNSCH PRN TOP 04/10/17 17:00 (Leda-Colace) 1 tab BID PO 04/10/17 21:00 04/20/17 08:09 (Milk Of Magnesia Liq) 30 ml Q12H PRN PO 04/10/17 17:00 (Senokot) 17.2 mg Q12H PRN PO 04/10/17 17:00 (Dulcolax Supp) 10 mg DAILY PRN RECTAL 04/10/17 17:00 (Lactulose Liq) 30 ml DAILY PRN PO 04/10/17 17:00 Fentanyl Citrate 250 ml @ 5 mls/hr TITRATE PRN IV 04/10/17 17:15 04/19/17 19:46 Norepinephrine Bitartrate 250 ml @ 7.5 mls/hr TITRATE PRN IV 04/10/17 20:30 04/17/17 06:03 Vasopressin 40 units/Dextrose 100 ml @ 6 mls/hr [id number] IV 04/10/17 23:04 04/16/17 22:36 Midazolam HCl 100 ml @ 2 mls/hr TITRATE PRN IV 04/10/17 23:15 Propofol 100 ml @ 2.55 mls/hr TITRATE PRN IV 04/10/17 23:30 04/16/17 17:44 Sodium Chloride 1,000 ml @ 100 mls/hr Q10H IV 04/11/17 10:45 04/15/17 03:40 (D50w (Vial) Inj) 50 ml UNSCH PRN IV PUSH 04/11/17 10:45 (Glucagon Inj) 1 mg UNSCH PRN OTHER 04/11/17 10:45 (NovoLIN R SUPPLEMENTAL SCALE) 1 Q4H SQ 04/11/17 12:00 04/20/17 08:00 (Senna Liq) 8.8 mg DAILY PO 04/11/17 12:30 04/20/17 08:08 (Oscal-D 250-125) 250 mg Q12HR PO 04/11/17 14:30 04/20/17 08:09 (Fosrenol Chew) 500 mg TID CHEW 04/11/17 18:00 04/20/17 08:09 (Miralax) 17 gm DAILY PO 04/11/17 15:15 04/20/17 08:08 (Reglan Inj) 5 mg Q8HR IV PUSH 04/11/17 22:00 04/20/17 06:38 (Protonix Inj) 40 mg Q24H IV PUSH 04/11/17 16:00 04/19/17 17:39 Aminocaproic Acid 3000 mg/Sodium Chloride 3,012 ml @ 0 mls/hr UNSCH IRRIGATION 04/12/17 10:00 04/19/17 03:09 (Albuterol Neb) 2.5 mg Q2HR NEB PRN NEB 04/13/17 08:30 04/20/17 03:14 (Tears Naturale Opth Soln) 1 drop Q8HR EACH EYE 04/14/17 22:00 04/20/17 06:38 Ampicillin Sodium/ Sulbactam Sodium 3 gm/Sodium Chloride 100 ml @ 200 mls/hr Q12H IV 04/15/17 21:00 04/20/17 08:09 Miscellaneous Information D/C ICU ELECTROLYTE ORDERS... UNSCH PRN .XX 04/16/17 12:45 Miscellaneous Information ICU - CALL ORDERING PHYSIC... UNSCH PRN .XX 04/16/17 12:45 Potassium Chloride 100 ml @ 25 mls/hr UNSCH PRN IV 04/16/17 12:45 04/16/17 16:42 (K-Lyte Cl Eff) 50 meq UNSCH PRN PO 04/16/17 12:45 Potassium Chloride 100 ml @ 50 mls/hr UNSCH PRN IV 04/16/17 12:45 Magnesium Sulfate 4 gm/Sodium Chloride 108 ml @ 54 mls/hr UNSCH PRN IV 04/16/17 12:45 Magnesium Sulfate 2 gm/Sodium Chloride 104 ml @ 52 mls/hr UNSCH PRN IV 04/16/17 12:45 (Mag-Ox) 800 mg UNSCH PRN PO 04/16/17 12:45 Sodium Phosphate 30 mmol/Sodium Chloride 260 ml @ 43.333 mls/ hr UNSCH PRN IV 04/16/17 12:45 (K-Phos) 2,000 mg UNSCH PRN PO 04/16/17 12:45 Potassium Phosphate 30 mmol/ Sodium Chloride 260 ml @ 43.333 mls/ hr UNSCH PRN IV 04/16/17 12:45 Assessment and Plan Assessment and Plan 72 y.o female with respiratory failure and gross hematuria with ARF Will start Amicar CBI to help stop hematuria Will need to irrigate santoyo Q 4 hours to remove clots Ucx with GNR's. Continue Abx. 04/17 72 y.o female with respiratory failure and gross hematuria with ARF which is improving. Creatinine at 1.5 Titrate CBI to off as urine clears Cystoscopy once stable and off vent 04/18 72 y.o female with respiratory failure and gross hematuria Change santoyo out to 3 way 24 F catheter and manually irrigate Continue to hold Heparin Restart Amicar CBI 04/19 72 y.o female with respiratory failure and gross hematuria Hematuria now resolving on Amicar CBI; irrigate santoyo prn clots Continue to hold Heparin Contine Amicar CBI at slow rate 04/20 72 y.o female with respiratory failure and gross hematuria Hematuria now resolving on Amicar CBI; irrigate santoyo prn clots Continue to hold Heparin Contine Amicar CBI at slow rate for now Cysto if pt gets off vent and is more stable in the future Will follow Arash Cruz DO Apr 20, 2017 12:24
--- NOTE | 2017-04-20 12:46 | HHI.CCPN ---
Subjective Remarks/Hospital Course The patient is a 72-year-old female with multiple medical comorbidities which include hypertension, diabetes mellitus, hyperlipidemia, obstructive sleep apnea on C-PAP machine at home, COPD, CVA with residual left-sided hemiparesis who presented to [facility] ED with altered mental status and emesis. She was last seen normal yesterday. The patient was on non-rebreather mask initially, however, she was intubated with etomidate, succinylcholine and placed on mechanical ventilation. Also she was placed on Versed drip for sedation. ABG post intubation showed acute hypercapnic respiratory failure with a pH of 7.36, CO2 51, pAO2 322, bicarb 28 and saturation 97%. Her laboratory data significant for acute renal failure with a BUN of 91, creatinine 3.65. Lactic acid was 1.9. Also she was found to have leukocytosis with a WBC of 17.1 associated with bandemia of 26. Her urinalysis was positive for leukocyte esterase, moderate blood and many bacteria. Chest x-ray post intubation showed ET tube above the kimberlyn, questionable elevation of right hemidiaphragm with subsegmental atelectasis. In the ER she is currently receiving a second liter of IV fluids and received cefepime and vancomycin. A Santoyo was placed in the ER and post placement the patient noted to have hematuria. to her altered mental status she was scheduled to undergo CT scan of the brain without contrast. Of note the patient was on Eliquis for a history of paroxysmal atrial fibrillation. Also a CT scan of the thorax, abdomen, pelvis without contrast were ordered by the ED physician. Most of the history was obtained from reviewing medical records as the patient is intubated and no family members present at the bedside 04/11 Patient became hypotensive overnight started on Levophed 15 mics and Vasopressin. Sedated with fentanyl, Diprivan and intubated. Afebrile. BC from yesterday GPC. 04/12: Currently afebrile. Currently on norepinephrine at 6 mcg/m and vasopressin 0.04 units per minute sedated on the ventilator and propofol and fentanyl drips. Currently undergoing small bowel follow-through. 04/13: Currently on propofol at 9 mcg/kg per minute. Off fentanyl drip. Small bowel follow-through revealed transition to colon at 4 hours. No signs of bowel obstruction. Small bowel is mildly dilatated. Creatinine currently 2.1. Edematous. Vasopressor requirements decreasing. Subjective 04/14: Afebrile. Currently on propofol; at 10 g per kilogram per minute. Positive BM. Creatinine Is currently at baseline 1.8. Abdominal x-ray pending 04/15 Remains intubated sedated with propofol. Intermittently follows commands. KUB shows gaseous distention. WBC increased to 28.5 creatinine improving 04/16: Patient remains septic remains on Levophed and vasopressin. Intermittently follows commands with the right upper extremity. WBC count is slightly improved. UO adequate. Failed CPAP trial 04/17: Remains in septic shock on vasopressin unable to wean off. Failed CPAP trials again today. Labs ordered for tomorrow. Appreciate urology reevaluation. Wean to DC Amicar CBI 04/18: Remains encephalopathic failing weaning trials. Vent day 9 without significant improvement. WBC count remains elevated at 25,000. Hematuria has restarted 04/19: WBC, Creatinine slightly improved but clinically remains the same without any improvement in neuro exam. Palliative care meeting with family today. Vent day 10. Remains off sedation approximately 48 hours, but severely encephalopathy 04/20: Despite being off sedation for several days no neurological improvement. Patient remains encephalopathic and lethargic. Not requiring pressors at this time. White count trending up. Again met with daughter yesterday she wants full code. Tentatively plan for tracheotomy Saturday if family wants to continue aggressive care Objective Vital Signs Date Time Temp Pulse Resp B/P (MAP) Pulse Ox O2 Delivery O2 Flow Rate FiO2 04/20/17 12:00 98.6 89 12 142/64 (90) 97 04/20/17 12:00 40 Intake and Output 04/20/17 04/20/17 04/21/17 08:00 16:00 00:00 Intake Total 439 ml Output Total 600 ml Balance -161 ml Result Diagram: 04/20/17 0530 04/20/17 05 Imaging Last Impressions Chest X-Ray 04/13/17 06 Signed Impressions: Service Date/Time: Thursday, April 13, 2017 04:03 - CONCLUSION: Worsening bilateral pulmonary infiltrates. Anthony Duncan Jr., MD Abdomen X-Ray 04/13/17 06 Signed Impressions: Service Date/Time: Thursday, April 13, 2017 04:10 - CONCLUSION: Unchanged dilated small bowel. Oral contrast reaches the rectal vault. Anthony Duncan Jr., MD Small Bowel X-Ray 04/12/17 0000 Signed Impressions: Service Date/Time: Wednesday, April 12, 2017 14:36 - CONCLUSION: 1. Mild small bowel dilatation without obstruction. Contrast reaches distal colon by 4 hours. Abrahan Gómez MD Head CT 04/10/17 1648 Signed Impressions: Service Date/Time: Monday, April 10, 2017 17:11 - CONCLUSION: 1. No acute intracranial abnormality or significant interval change. Daniel Carvajal MD Abdomen/Pelvis CT 04/10/17 1625 Signed Impressions: Service Date/Time: Monday, April 10, 2017 17:15 - CONCLUSION: Mild fluid and gaseous distention of small bowel, mainly the proximal small bowel. No acute focal findings in the abdomen or pelvis on noncontrast evaluation. King Shi MD Chest CT 04/10/17 0000 Signed Impressions: Service Date/Time: Monday, April 10, 2017 17:15 - CONCLUSION: 1. ETT just above the kimberlyn. 2. Dense right lower lobe airspace consolidation with diffuse patchy nodular airspace disease throughout the remainder of the right lung and at the extreme left lung base. Findings are most consistent with pneumonia, atypical infection or aspiration. 3. No significant effusion or pneumothorax. Daniel Carvajal MD Objective Remarks GENERAL: Patient is 72 yo critically ill orotracheally intubated SKIN: Warm and dry. Decubitus ulcer bilateral gluteal. Stage II. HEAD: Normocephalic. EYES: No scleral icterus. No injection or drainage. NECK: Supple, trachea midline. No JVD or lymphadenopathy. CARDIOVASCULAR: Regular rate and rhythm currently. S1, S2 no S4. Without murmurs, gallops, or rubs. RESPIRATORY: Breath sounds equal bilaterally. No accessory muscle use. Bilateral rhonchi GASTROINTESTINAL: Abdomen soft, non-tender, obese. No bowel sounds are appreciated : Santoyo in place with urine clearing MUSCULOSKELETAL: +2 edema. Neuro: Lethargic obtunded. Off sedation for 72 hours. Partially opens eyes to stimulation. Very weakly moves right upper extremity Date of Insertion: Apr 10, 2017 Line: Central Venous Catheter Side: Right Location: Subclavian A/P Assessment and Plan Neuro/Psych: Metabolic encephalopathy secondary to sepsis History of CVA with left-sided weakness Propofol Had been held for more than 72 hours, no improvement in encephalopathy , restarted low-dose for vent synchrony Fentanyl drip currently on hold due to small bowel dilatation Goal of RASS -1. 04/10 -CT brain without contrast: No acute abnormalities. Pulm : Acute respiratory failure secondary to pneumonia/E Coli, Severe sepsis LAXMI COPD Continue with vent support and maintain sats above 92%. Ventilator bundle, PRVC 14/500/07/12/39, Daily SBT. Vent day . Proceed with Trach Saturday if family still wants aggressive. Continues to fail weaning trial due to tachypnea respiratory distress. Also mental status will not permit extubation Albuterol/ipratropium aerosols every 6 hours with albuterol aerosols every 2 hours as needed for dyspnea Chest x-ray revealed bilateral persistent infiltrates CT chest: Dense RLL airspace consolidation with diffuse patchy nodular airspace disease throughout the remainder of the right lung and at the extreme left lung base. Findings are most consistent with pneumonia, CV: Septic shock-resolved History of paroxysmal atrial fibrillation currently normal sinus rhythm Hypertension Dyslipidemia Currently off all pressors for 48 hours. Maintaining map above 65 Off maintenance fluid. Echo: EF 55-60%. Lactic acid: 1.9 Renal/FEN/: Hematuria Hypocalcemia Hypopotassemia Hyponatremia Hypophosphatemia Monitor renal function, I/O's and avoid nephrotoxins Renal and Urology consulted. Creatinine improving. Was On continuous bladder irrigations with Amicar. DCd per Dr. Cruz 04/17. Hematuria has restarted, Dr. Cruz changed santoyo out to 3 way 24 F catheter and manually irrigate Restarted Amicar CBI GI: Small bowel dilatation On Protonix 40 mg IV daily for GI prophylaxis. Small bowel follow-through - mild dilatation of small bowel however contrast does transition to: Within 4 hours. KUB - small bowel dilatation. Contrast rectum. Repeat 04/[address] abd/pelvis possible small bowel obstruction. GI following. Nepro advance as tolerated ID: Enterococcus faecalis bacteremia Proteus UTI Escherichia coli pneumonia Continue with abx ( Unasyn) Monitor for signs infections (fever and WBC) Pharmacy to adjust doses of abx per renal function. 04/10 blood cultures Enterococcus faecalis / bottles. Check BC x 2 sets 04/10. 04/11 blood cultures no growth 04/10 UA positive Proteus 04/11 - sputum -Escherichia coli Influenza screening, strep pneumonia and Legionella urinary Ag negative. Follow up on urine cx, check sputum cx Wound care is following for sacral wound ulcers. Endo: Diabetes mellitus Continue SSI to medium scale with Accu-Chek q.4h for glycemic control. Continue detemir 7units BID Heme: Leukocytosis Normocytic anemia Monitor CBC and coags. MSK: Decubitus ulcer Santyl barrier cream twice a day. Wound care consulted GI prophylaxis with pantoprazole 40 mg daily and DVT prophylaxis with SCDs Heparin started 04/17/17, discontinued today due to gross hematuria Lines: Right subclavian CVL, Right radial Art line04/10- 04/17 Patient is critically ill with septic shock, resp failure, ARF, pneumonia, UTI. Currently off pressors but mental status will not permit extubation, and patient does not tolerate weaning trial. Chest x-ray with bilateral infiltrates. Without ventilator support she will . Palliative care following. By Saturday proceed with tracheostomy and PEG tube placement Level 3 Elmo Malik MD Apr 20, 2017 12:46
[2017-04-20] MEDS: SODIUM CHLOR 0.9% 1000 ML INJ 1,000 ML IV SCH ×2 (14:45→20:28)
--- NOTE | 2017-04-20 14:46 | HHI.IDPN ---
Note Infectious Disease Note ID coverage. On CPAP. 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/16 Objective Vital Signs Date Time Temp Pulse Resp B/P (MAP) Pulse Ox O2 Delivery O2 Flow Rate FiO2 04/20/17 14:00 82 04/20/17 12:00 98.6 89 12 142/64 (90) 97 04/20/17 12:00 40 04/20/17 12:00 89 04/20/17 11:22 100 40 04/20/17 11:18 100 35 04/20/17 10:00 81 04/20/17 08:15 98 40 04/20/17 08:00 98.6 91 8 128/60 (82) 100 04/20/17 08:00 91 04/20/17 08:00 40 04/20/17 06:00 86 04/20/17 04:00 40 04/20/17 04:00 91 04/20/17 04:00 99.1 91 14 124/60 (81) 100 04/20/17 03:14 100 40 04/20/17 02:00 86 04/20/17 01:40 100 40 04/20/17 00:00 98.5 75 2 109/53 (71) 100 04/20/17 00:00 75 04/20/17 00:00 40 04/19/17 22:35 100 40 04/19/17 22:00 73 04/19/17 20:01 98.1 111 17 152/67 (95) 100 04/19/17 20:00 105 04/19/17 20:00 40 04/19/17 19:41 99 40 04/19/17 18:00 87 04/19/17 16:09 100 40 04/19/17 16:00 40 04/19/17 16:00 98.8 86 14 130/60 (83) 99 04/19/17 16:00 86 Laboratory Tests Test 04/20/17 05:30 04/20/17 08:45 04/20/17 08:47 White Blood Count 23.5 TH/MM3 Red Blood Count 2.58 MIL/MM3 Hemoglobin 7.3 GM/DL Hematocrit 22.7 % Mean Corpuscular Volume 88.2 FL Mean Corpuscular Hemoglobin 28.2 PG Mean Corpuscular Hemoglobin Concent 32.0 % Red Cell Distribution Width 19.5 % Platelet Count 245 TH/MM3 Mean Platelet Volume 9.4 FL Neutrophils (%) (Auto) 78.4 % Lymphocytes (%) (Auto) 16.6 % Monocytes (%) (Auto) 3.9 % Eosinophils (%) (Auto) 0.9 % Basophils (%) (Auto) 0.2 % Neutrophils # (Auto) 18.5 TH/MM3 Lymphocytes # (Auto) 3.9 TH/MM3 Monocytes # (Auto) 0.9 TH/MM3 Eosinophils # (Auto) 0.2 TH/MM3 Basophils # (Auto) 0.0 TH/MM3 CBC Comment AUTO DIFF Differential Total Cells Counted 100 Neutrophils % (Manual) 76 % Band Neutrophils % 5 % Lymphocytes % 11 % Monocytes % 3 % Eosinophils % 2 % Neutrophils # (Manual) 19.7 TH/MM3 Metamyelocytes 1 % Myelocytes 2 % Differential Comment FINAL DIFF MANUAL Toxic Granulation 2+ Platelet Estimate NORMAL Platelet Morphology Comment ENLARGED Blood Urea Nitrogen 44 MG/DL Creatinine 1.30 MG/DL Random Glucose 140 MG/DL Total Protein 5.7 GM/DL Albumin 1.3 GM/DL Calcium Level 8.0 MG/DL Alkaline Phosphatase 518 U/L Aspartate Amino Transf (AST/SGOT) 36 U/L Alanine Aminotransferase (ALT/SGPT) 21 U/L Total Bilirubin 0.4 MG/DL Sodium Level 134 MEQ/L Potassium Level 3.5 MEQ/L Chloride Level 102 MEQ/L Carbon Dioxide Level 25.6 MEQ/L Anion Gap 6 MEQ/L Estimat Glomerular Filtration Rate 40 ML/MIN Urine Eosinophils NONE SEEN /HPF Urine Color COLORLESS Urine Turbidity HAZY Urine pH 5.5 Urine Specific Peggs 1.008 Urine Protein NEG mg/dL Urine Glucose (UA) NEG mg/dL Urine Ketones NEG mg/dL Urine Occult Blood MOD Urine Nitrite NEG Urine Bilirubin NEG Urine Urobilinogen LESS THAN 2.0 MG/DL Urine Leukocyte Esterase LARGE Urine RBC 30 /hpf Urine WBC /hpf Urine WBC Clumps FEW Urine Squamous Epithelial Cells <1 /hpf Urine Bacteria FEW /hpf Urine Mucus FEW /lpf Microscopic Urinalysis Comment CATH-CULTURE IND Imaging Chest X-Ray 04/18/17 0600 Signed Impressions: Service Date/Time: April 03:56 - CONCLUSION: Slight improvement in aeration. King Shi MD Abdomen X-Ray 04/15/17 1405 Signed Impressions: Service Date/Time: Saturday, April 15, 2017 15:15 - CONCLUSION: 1. Gaseous distension predominantly small bowel as described above. 2. Nasogastric tube does have the stomach decompressed. Everardo Martinez MD FACR Small Bowel X-Ray 04/12/17 0000 Signed Impressions: Service Date/Time: Wednesday, April 12, 2017 14:36 - CONCLUSION: 1. Mild small bowel dilatation without obstruction. Contrast reaches distal colon by 4 hours. Abrahan Gómez MD Head CT 04/10/17 1648 Signed Impressions: Service Date/Time: Monday, April 10, 2017 17:11 - CONCLUSION: 1. No acute intracranial abnormality or significant interval change. Daniel Carvajal MD Abdomen/Pelvis CT 04/10/17 1625 Signed Impressions: Service Date/Time: Monday, April 10, 2017 17:15 - CONCLUSION: Mild fluid and gaseous distention of small bowel, mainly the proximal small bowel. No acute focal findings in the abdomen or pelvis on noncontrast evaluation. King Shi MD Chest CT 04/10/17 0000 Signed Impressions: Service Date/Time: Monday, April 10, 2017 17:15 - CONCLUSION: 1. ETT just above the [place]. 2. Dense right lower lobe airspace consolidation with diffuse patchy nodular airspace disease throughout the remainder of the right lung and at the extreme left lung base. Findings are most consistent with pneumonia, atypical infection or aspiration. 3. No significant effusion or pneumothorax. Daniel Carvajal MD Physical Exam CONSTITUTIONAL/GENERAL: Patient on the vent. SKIN: No rash. CARDIOVASCULAR: Regular rate and rhythm without murmurs, gallops, or rubs. No JVD. RESPIRATORY/CHEST: Clear to auscultation. Breath sounds equal bilaterally. No wheezes, rales, or rhonchi. GASTROINTESTINAL: Abdomen soft. GENITOURINARY: Cuellar catheter in place; urine slightly pinkish, almost clear MUSCULOSKELETAL: Extremities without clubbing, cyanosis, (+) edema. NEUROLOGICAL: off sedation; non responsive PSYCHIATRIC: Unable to assess Assessment and Plan sepsis UTI, Proteus Gross hematuria: resolving Acute VDRF ARF: improving ? PNA - sputum with E.coli Enterococcal high grade bacteremia - S to ampicillin - 2 D echo negative for vegetation - repeat blood clx negative Ileus, now having diarrhea no e/o small bowel obstruction - C.diff negative enteric pathogens negative Critically ill, unstable persistent leukocytosis - WBC still elevated. Hypothermic - new ? sepsis Severe encephalopahty - not waking up off sedation Rec's: Continue Unasyn monitor WBC fu blood clx monitor temps Follow sputum and urine culture. Meliton Santos MD Apr 20, 2017 14:46
[2017-04-20] MEDS: PANTOPRAZOLE SODIUM 40 MG VIAL IV PUSH SCH (15:13)
[2017-04-20] MEDS: fentaNYL DRIP 250 ML IV PRN (17:37)
[2017-04-20] MEDS: AMINOCAPROIC ACID INJ 3,000 MG in SODIUM CHLORIDE 0.9% IRR BAG 3,000 ML IRRIGATION SCH (20:28)
[2017-04-21] VITALS (21 sets, daily range): BP systolic 74–115; BP diastolic 45–59; PULSE 80–96; RESP 0–14; TEMP 98.1–99.4; O2SAT 97–100
[2017-04-21] MEDS: AMINOCAPROIC ACID INJ 3,000 MG in SODIUM CHLORIDE 0.9% IRR BAG 3,000 ML IRRIGATION SCH (01:37)
[2017-04-21] MEDS: INSULIN NovoLIN REGULAR SUPPLEMENTAL SCALE SQ SCH ×6 (04:00→20:00)
[2017-04-21 04:53] LABS: AUTOMATED NEUTROPHIL # 16.6 TH/MM3 (1.8-7.7); BASOPHIL % 0.2 % (0.0-2.0); EOSINOPHIL # 0.2 TH/MM3 (0-0.4); EOSINOPHIL % 0.9 % (0.0-4.0); HEMATOCRIT 21.4 % (35.0-46.0); LYMPH % 14.7 % (9.0-44.0); LYMPHOCYTE # 3.1 TH/MM3 (1.0-4.8); MEAN CELL VOLUME 88.9 FL (80.0-100.0); MEAN CORPUSCULAR HEMOGLOBIN 28.3 PG (27.0-34.0); MEAN CORPUSCULAR HGB CONC 31.9 % (32.0-36.0); NEUT % 80.2 % (16.0-70.0); PLATELET COUNT 275 TH/MM3 (150-450); RED CELL DISTRIBUTION WIDTH 19.3 % (11.6-17.2); WHITE BLOOD COUNT 20.7 TH/MM3 (4.0-11.0)
[2017-04-21 05:02] LABS: HEMO FLAGS AUTO DIFF
[2017-04-21] MEDS: ARTIFICIAL TEARS OPTH SOLN 15 ML BTL EACH EYE SCH ×3 (05:16→21:52)
[2017-04-21] MEDS: METOCLOPRAMIDE HCL 10 MG/2 ML VIAL IV PUSH SCH ×3 (05:16→21:53)
[2017-04-21 05:19] LABS: ANION GAP 11 MEQ/L (5-15); AST (GOT) 37 U/L (15-37); BICARBONATE 24.1 MEQ/L (21.0-32.0); BLOOD UREA NITROGEN 45 MG/DL (7-18); CHLORIDE 101 MEQ/L (98-107); GLOMERULAR FILTRATION RATE 36 ML/MIN (>89); POTASSIUM 3.8 MEQ/L (3.5-5.1); SODIUM (NA) 136 MEQ/L (136-145)
[2017-04-21 05:20] LABS: ALT (GPT) 20 U/L (10-53)
[2017-04-21 05:22] LABS: ALKALINE PHOSPHATASE 468 U/L (45-117); TOTAL BILIRUBIN ADULT 0.4 MG/DL (0.2-1.0)
[2017-04-21 05:39] LABS: METAMYELOCYTES 1 % (0-1); MYELOCYTES 2 % (0-0); POLYS (SEG NEUTROPHILS) 82 % (16-70)
[2017-04-21 05:40] LABS: NEUTROPHIL # MANUAL DIFF 17.6 TH/MM3 (1.8-7.7); PLATELET ESTIMATE SMEAR NORMAL (NORMAL); PLATELET MORPHOLOGY NORMAL (NORMAL); SCAN/DIFF FINAL DIFF MANUAL; STOMATOCYTES 2+ (NORMAL); TARGET CELLS 1+ (NORMAL); WBC DIFF SAMPLE 100
[2017-04-21] MEDS ORDERED: SODIUM CHLOR 0.9% 250 ML INJ 250 ML IV ONE (05:45)
[2017-04-21] MEDS: LANTHANUM CARBONATE 500 MG CHEWABLE TABLET CHEW SCH ×3 (08:25→18:05)
[2017-04-21] MEDS: CALCIUM/VITAMIN D 250 MG/125 U TAB PO SCH ×2 (08:25→21:52)
[2017-04-21] MEDS: POLYETHYLENE GLYCOL 17 GM PKG PO SCH (08:25)
[2017-04-21] MEDS: SENNOSIDES SYRUP 8.8 MG/5 ML CUP PO SCH (08:25)
[2017-04-21] MEDS: AMPICILLIN-SULBACTAM INJ 3 GM in SODIUM CHLORIDE 0.9% INJ 100 ML IV SCH ×2 (08:25→21:00)
[2017-04-21] MEDS: DOCUSATE SODIUM 50 MG/SENNA 8.6 MG TAB PO SCH ×2 (08:25→21:52)
--- NOTE | 2017-04-21 11:20 | HHI.PR ---
Subjective Patient symptoms today Pt intubated/sedated. Urine clear on slow Amicar drip. Objective Vital Signs Vital Signs Date Time Temp Pulse Resp B/P (MAP) Pulse Ox O2 Delivery O2 Flow Rate FiO2 04/21/17 11:12 100 35 04/21/17 10:00 92 04/21/17 09:58 98.1 90 14 107/51 100 04/21/17 09:39 98.7 95 14 105/59 100 04/21/17 08:02 100 35 04/21/17 08:00 35 04/21/17 08:00 99.2 96 8 100/51 (67) 100 04/21/17 08:00 96 04/21/17 06:00 80 04/21/17 04:16 100 35 04/21/17 04:00 35 04/21/17 04:00 98.5 90 14 109/51 (70) 100 04/21/17 04:00 90 04/21/17 02:00 87 04/21/17 00:55 100 35 04/21/17 00:00 91 04/21/17 00:00 35 04/21/17 00:00 98.5 91 7 74/57 (63) 100 04/20/17 22:00 100 04/20/17 20:31 100 35 04/20/17 20:00 97.9 100 10 118/57 (77) 99 04/20/17 20:00 100 04/20/17 20:00 35 04/20/17 18:00 91 04/20/17 18:00 35 04/20/17 16:00 98.1 04/20/17 16:00 95 04/20/17 16:00 98.1 95 11 127/60 (82) 100 04/20/17 15:26 99 35 04/20/17 14:00 82 04/20/17 12:00 98.6 89 12 142/64 (90) 97 04/20/17 12:00 40 04/20/17 12:00 89 04/20/17 11:22 100 40 Intake & Output 04/21/17 04/21/17 07:00 19:00 Intake Total 596 ml 10 ml Output Total 200 ml Balance 396 ml 10 ml Intake Oral 0 ml IV Total 263 ml Tube Feeding 333 ml Blood Product IV Normal Saline Flush 10 ml Stool Total 200 ml Result Diagram: 04/21/17 0400 04/21/17 0400 Objective Remarks Abd:soft,nt,nd Santoyo catheter irrigated and clots removed. 04/17 Abd:soft,nt,nd Santoyo catheter with david urine 04/18 Abd:soft,nt,nd Santoyo: attempted to irrigate santoyo at bedside but clotted off. Will need large bore 3way catheter. 04/19 Abd:soft,nt,nd Santoyo with clear urine 04/20 Abd:soft,nt,nd Santoyo with clear urine 04/21 Abd:soft,nt,nd Santoyo with clear urine Medications and IVs Current Medications Medications (Trade) Dose Ordered Sig/Meme Route Start Time Stop Time Status Last Admin Miscellaneous Information 1 [id number] XX 04/10/17 17:00 04/10/17 17:00 (Chlorhexidine 2% Cloth) Taper DAILY@04 TOP 04/11/17 04:00 04/07/18 03:59 04/20/17 04:00 (Chlorhexidine 2% Cloth) 3 pack UNSCH PRN TOP 04/10/17 17:00 (Leda-Colace) 1 tab BID PO 04/10/17 21:00 04/21/17 08:25 (Milk Of Magnesia Liq) 30 ml Q12H PRN PO 04/10/17 17:00 (Senokot) 17.2 mg Q12H PRN PO 04/10/17 17:00 (Dulcolax Supp) 10 mg DAILY PRN RECTAL 04/10/17 17:00 (Lactulose Liq) 30 ml DAILY PRN PO 04/10/17 17:00 Fentanyl Citrate 250 ml @ 5 mls/hr TITRATE PRN IV 04/10/17 17:15 04/20/17 17:37 Norepinephrine Bitartrate 250 ml @ 7.5 mls/hr TITRATE PRN IV 04/10/17 20:30 04/17/17 06:03 Vasopressin 40 units/Dextrose 100 ml @ 6 mls/hr [id number] IV 04/10/17 23:04 04/16/17 22:36 Midazolam HCl 100 ml @ 2 mls/hr TITRATE PRN IV 04/10/17 23:15 Propofol 100 ml @ 2.55 mls/hr TITRATE PRN IV 04/10/17 23:30 04/16/17 17:44 Sodium Chloride 1,000 ml @ 100 mls/hr Q10H IV 04/11/17 10:45 04/15/17 03:40 (D50w (Vial) Inj) 50 ml UNSCH PRN IV PUSH 04/11/17 10:45 (Glucagon Inj) 1 mg UNSCH PRN OTHER 04/11/17 10:45 (NovoLIN R SUPPLEMENTAL SCALE) 1 Q4H SQ 04/11/17 12:00 04/21/17 11:16 (Senna Liq) 8.8 mg DAILY PO 04/11/17 12:30 04/21/17 08:25 (Oscal-D 250-125) 250 mg Q12HR PO 04/11/17 14:30 04/21/17 08:25 (Fosrenol Chew) 500 mg TID CHEW 04/11/17 18:00 04/21/17 08:25 (Miralax) 17 gm DAILY PO 04/11/17 15:15 04/21/17 08:25 (Reglan Inj) 5 mg Q8HR IV PUSH 04/11/17 22:00 04/21/17 05:16 (Protonix Inj) 40 mg Q24H IV PUSH 04/11/17 16:00 04/20/17 15:13 Aminocaproic Acid 3000 mg/Sodium Chloride 3,012 ml @ 0 mls/hr UNSCH IRRIGATION 04/12/17 10:00 04/21/17 01:37 (Albuterol Neb) 2.5 mg Q2HR NEB PRN NEB 04/13/17 08:30 04/20/17 20:42 (Tears Naturale Opth Soln) 1 drop Q8HR EACH EYE 04/14/17 22:00 04/21/17 05:16 Ampicillin Sodium/ Sulbactam Sodium 3 gm/Sodium Chloride 100 ml @ 200 mls/hr Q12H IV 04/15/17 21:00 04/21/17 08:25 Miscellaneous Information D/C ICU ELECTROLYTE ORDERS... UNSCH PRN .XX 04/16/17 12:45 Miscellaneous Information ICU - CALL ORDERING PHYSIC... UNSCH PRN .XX 04/16/17 12:45 Potassium Chloride 100 ml @ 25 mls/hr UNSCH PRN IV 04/16/17 12:45 04/16/17 16:42 (K-Lyte Cl Eff) 50 meq UNSCH PRN PO 04/16/17 12:45 Potassium Chloride 100 ml @ 50 mls/hr UNSCH PRN IV 04/16/17 12:45 Magnesium Sulfate 4 gm/Sodium Chloride 108 ml @ 54 mls/hr UNSCH PRN IV 04/16/17 12:45 Magnesium Sulfate 2 gm/Sodium Chloride 104 ml @ 52 mls/hr UNSCH PRN IV 04/16/17 12:45 (Mag-Ox) 800 mg UNSCH PRN PO 04/16/17 12:45 Sodium Phosphate 30 mmol/Sodium Chloride 260 ml @ 43.333 mls/ hr UNSCH PRN IV 04/16/17 12:45 (K-Phos) 2,000 mg UNSCH PRN PO 04/16/17 12:45 Potassium Phosphate 30 mmol/ Sodium Chloride 260 ml @ 43.333 mls/ hr UNSCH PRN IV 04/16/17 12:45 Sodium Chloride 250 ml @ 15 mls/hr ONCE ONCE IV 04/21/17 05:45 04/21/17 22:24 Assessment and Plan Assessment and Plan 72 y.o female with respiratory failure and gross hematuria with ARF Will start Amicar CBI to help stop hematuria Will need to irrigate santoyo Q 4 hours to remove clots Ucx with GNR's. Continue Abx. 04/17 72 y.o female with respiratory failure and gross hematuria with ARF which is improving. Creatinine at 1.5 Titrate CBI to off as urine clears Cystoscopy once stable and off vent 04/18 72 y.o female with respiratory failure and gross hematuria Change santoyo out to 3 way 24 F catheter and manually irrigate Continue to hold Heparin Restart Amicar CBI 04/19 72 y.o female with respiratory failure and gross hematuria Hematuria now resolving on Amicar CBI; irrigate santoyo prn clots Continue to hold Heparin Contine Amicar CBI at slow rate 04/20 72 y.o female with respiratory failure and gross hematuria Hematuria now resolving on Amicar CBI; irrigate santoyo prn clots Continue to hold Heparin Contine Amicar CBI at slow rate for now Cysto if pt gets off vent and is more stable in the future Will follow 04/21 72 y.o female with respiratory failure and gross hematuria Hematuria now resolving on Amicar CBI; irrigate santoyo prn clots Continue to hold Heparin Contine Amicar CBI at slow rate for now Cysto if pt gets off vent and is more stable in the future Will follow Arash Cruz DO Apr 21, 2017 11:20
--- NOTE | 2017-04-21 13:52 | HHI.NPPN ---
Subjective History of Present Illness 72-year-old female known to me from her last admission when she was admitted in October of this year with past medical history of hypertension, diabetes mellitus, chronic kidney disease, history of cerebrovascular accident, hyperlipidemia, sleep apnea, atrial fibrillation, was admitted with altered mental status. I was called to see the patient because of elevated BUN and creatinine. I saw her when she was here in October and at that time her creatinine was as high as 2.8 and then it improved to around 1.4-1.6, which is probably her baseline. Additional Remarks Patient remain on the vent, sedated, and unresponsive Review of Systems General General Remarks Intubated and sedated. Objective Data Data 04/21/17 04/22/17 18:59 06:59 Intake Total 369 ml Balance 369 ml Packed Cells 329 ml Blood Product IV Normal Saline Flush 40 ml Vital Signs Date Time Temp Pulse Resp B/P (MAP) Pulse Ox O2 Delivery O2 Flow Rate FiO2 04/21/17 12:00 35 04/21/17 12:00 80 04/21/17 11:12 100 35 04/21/17 10:00 92 04/21/17 09:58 98.1 90 14 107/51 100 04/21/17 09:39 98.7 95 14 105/59 100 04/21/17 08:02 100 35 04/21/17 08:00 35 04/21/17 08:00 99.2 96 8 100/51 (67) 100 04/21/17 08:00 96 04/21/17 06:00 80 04/21/17 04:16 100 35 04/21/17 04:00 35 04/21/17 04:00 98.5 90 14 109/51 (70) 100 04/21/17 04:00 90 04/21/17 02:00 87 04/21/17 00:55 100 35 04/21/17 00:00 91 04/21/17 00:00 35 04/21/17 00:00 98.5 91 7 74/57 (63) 100 04/20/17 22:00 100 04/20/17 20:31 100 35 04/20/17 20:00 97.9 100 10 118/57 (77) 99 04/20/17 20:00 100 04/20/17 20:00 35 10/14/17 18:00 91 04/20/17 18:00 35 04/20/17 16:00 98.1 04/20/17 16:00 95 04/20/17 16:00 98.1 95 11 127/60 (82) 100 04/20/17 15:26 99 35 04/20/17 14:00 82 -: 04/21/17 0400 04/21/17 0400 Physical Exam Eyes Eye Exam: Pupils Equal Throat Throat Exam: Oral Mucosa Banks & Moist Neck Neck Exam: Neck Supple Pulmonary Resp Exam: Rhonchi, Decreased Bases, Diminished Breath Sounds, Poor Inspiratory Effort Cardiology CV Exam: Regular, Normal Sinus Rhythm Gastrointestinal/Abdomen GI Exam: Soft, Non-Tender, Bowel Sounds Present, Distended Extremeties Extremities Exam: Moderate Edema, Pitting Edema Neurologic Neuro Exam: Sedated Assessment/Plan Assessment Summary: HIRAM/Acute Renal Failure, Hypotension, CKD Stage III Problem List: (1) Dyspnea ICD Codes: R06.00 - Dyspnea, unspecified Status: Acute (2) Diabetes mellitus ICD Codes: E11.9 - Type 2 diabetes mellitus without complications Status: Chronic (3) Leukocytosis ICD Codes: D72.829 - Elevated white blood cell count, unspecified Status: Resolved (4) Encephalopathy ICD Codes: G93.40 - Encephalopathy, unspecified Status: Acute (5) Pneumonia ICD Codes: J18.9 - Pneumonia, unspecified organism Status: Acute (6) Acute respiratory failure ICD Codes: J96.00 - Acute respiratory failure, unspecified whether with hypoxia or hypercapnia Status: Acute (7) Anemia ICD Codes: D64.9 - Anemia, unspecified Status: Acute (8) Sepsis ICD Codes: A41.9 - Sepsis, unspecified organism Status: Resolved (9) UTI (urinary tract infection) ICD Codes: N39.0 - Urinary tract infection, site not specified Status: Resolved (10) Acute renal failure ICD Codes: N17.9 - Acute kidney failure, unspecified Status: Acute (11) Acute worsening of stage 3 chronic kidney disease ICD Codes: N18.3 - Chronic kidney disease, stage 3 (moderate) Status: Acute Plan Patient has chronic kidney disease. The baseline Creatinine is 1.7-1.8. Now develop HIRAM, possibly related to Hypotension and ATN. Has sepsis and UTI, BP is low, on pressors. Has hematuria, continues with Amicar/ bladder irrigation. Creatinine 1.4 now, stable. Continue antibiotics.Avoid Nephrotoxins. Follow the Vanco. level. Continue IVF and antibiotics. Urology following hematuria Transfused PRBCs today Follow the urine out put and BMP. Problem Qualifiers (1) Pneumonia: Qualified Codes: J18.9 - Pneumonia, unspecified organism (2) Acute respiratory failure: Qualified Codes: J96.00 - Acute respiratory failure, unspecified whether with hypoxia or hypercapnia (3) Anemia: Qualified Codes: D64.9 - Anemia, unspecified (4) Sepsis: Qualified Codes: A41.9 - Sepsis, unspecified organism (5) UTI (urinary tract infection): Qualified Codes: N39.0 - Urinary tract infection, site not specified (6) Acute renal failure: Qualified Codes: N17.9 - Acute kidney failure, unspecified Kerwin Hurt MD Apr 21, 2017 13:52
--- NOTE | 2017-04-21 14:20 | HHI.IDPN ---
Subjective Subjective Remarks afebrile tolerating TF @ 30cc + diarrhea, heavy tolerating CPAP off pressors still obtunded despite that sedation is off Antibiotics unasyn Allergies: Coded Allergies: *MDRO Multi-Drug Resistant Organism (Verified Adverse Reaction, Unknown, ) MRSA PCR Screen POSITIVE - 10/24/2016 MRSA (sputum)-10/24/16 Objective . Vital Signs Date Time Temp Pulse Resp B/P (MAP) Pulse Ox O2 Delivery O2 Flow Rate FiO2 04/21/17 12:00 35 04/21/17 12:00 80 04/21/17 11:12 100 35 04/21/17 10:00 92 04/21/17 09:58 98.1 90 14 107/51 100 04/21/17 09:39 98.7 95 14 105/59 100 04/21/17 08:02 100 35 04/21/17 08:00 35 04/21/17 08:00 99.2 96 8 100/51 (67) 100 04/21/17 08:00 96 04/21/17 06:00 80 04/21/17 04:16 100 35 04/21/17 04:00 35 04/21/17 04:00 98.5 90 14 109/51 (70) 100 04/21/17 04:00 90 04/21/17 02:00 87 04/21/17 00:55 100 35 04/21/17 00:00 91 04/21/17 00:00 35 04/21/17 00:00 98.5 91 7 74/57 (63) 100 04/20/17 22:00 100 04/20/17 20:31 100 35 04/20/17 20:00 97.9 100 10 118/57 (77) 99 04/20/17 20:00 100 04/20/17 20:00 35 04/20/17 18:00 91 04/20/17 18:00 35 04/20/17 16:00 98.1 04/20/17 16:00 95 04/20/17 16:00 98.1 95 11 127/60 (82) 100 04/20/17 15:26 99 35 04/21/17 04/21/17 04/22/17 15:00 23:00 07:00 Intake Total 369 ml Balance 369 ml Packed Cells 329 ml Blood Product IV Normal Saline Flush 40 ml . Laboratory Tests Test 04/20/17 05:30 04/21/17 04:00 White Blood Count 23.5 TH/MM3 20.7 TH/MM3 Red Blood Count 2.58 MIL/MM3 2.40 MIL/MM3 Hemoglobin 7.3 GM/DL 6.8 GM/DL Hematocrit 22.7 % 21.4 % Mean Corpuscular Volume 88.2 FL 88.9 FL Mean Corpuscular Hemoglobin 28.2 PG 28.3 PG Mean Corpuscular Hemoglobin Concent 32.0 % 31.9 % Red Cell Distribution Width 19.5 % 19.3 % Platelet Count 245 TH/MM3 275 TH/MM3 Mean Platelet Volume 9.4 FL 8.9 FL Neutrophils (%) (Auto) 78.4 % 80.2 % Lymphocytes (%) (Auto) 16.6 % 14.7 % Monocytes (%) (Auto) 3.9 % 4.0 % Eosinophils (%) (Auto) 0.9 % 0.9 % Basophils (%) (Auto) 0.2 % 0.2 % Neutrophils # (Auto) 18.5 TH/MM3 16.6 TH/MM3 Lymphocytes # (Auto) 3.9 TH/MM3 3.1 TH/MM3 Monocytes # (Auto) 0.9 TH/MM3 0.8 TH/MM3 Eosinophils # (Auto) 0.2 TH/MM3 0.2 TH/MM3 Basophils # (Auto) 0.0 TH/MM3 0.0 TH/MM3 CBC Comment AUTO DIFF AUTO DIFF Differential Total Cells Counted 100 100 Neutrophils % (Manual) 76 % 82 % Band Neutrophils % 5 % Lymphocytes % 11 % 13 % Monocytes % 3 % 2 % Eosinophils % 2 % Neutrophils # (Manual) 19.7 TH/MM3 17.6 TH/MM3 Metamyelocytes 1 % 1 % Myelocytes 2 % 2 % Differential Comment FINAL DIFF MANUAL FINAL DIFF MANUAL Toxic Granulation 2+ Platelet Estimate NORMAL NORMAL Platelet Morphology Comment ENLARGED NORMAL Target Cells 1+ Stomatocytes 2+ Laboratory Tests Test 04/20/17 05:30 04/21/17 04:00 Blood Urea Nitrogen 44 MG/DL 45 MG/DL Creatinine 1.30 MG/DL 1.41 MG/DL Random Glucose 140 MG/DL 134 MG/DL Total Protein 5.7 GM/DL 5.6 GM/DL Albumin 1.3 GM/DL 1.3 GM/DL Calcium Level 8.0 MG/DL 8.2 MG/DL Alkaline Phosphatase 518 U/L 468 U/L Aspartate Amino Transf (AST/SGOT) 36 U/L 37 U/L Alanine Aminotransferase (ALT/SGPT) 21 U/L 20 U/L Total Bilirubin 0.4 MG/DL 0.4 MG/DL Sodium Level 134 MEQ/L 136 MEQ/L Potassium Level 3.5 MEQ/L 3.8 MEQ/L Chloride Level 102 MEQ/L 101 MEQ/L Carbon Dioxide Level 25.6 MEQ/L 24.1 MEQ/L Anion Gap 6 MEQ/L 11 MEQ/L Estimat Glomerular Filtration Rate 40 ML/MIN 36 ML/MIN Magnesium Level 2.0 MG/DL Microbiology Date/Time Source Procedure Growth Status 04/20/17 09:00 Sputum Endotracheal Gram Stain - Final Resulted 04/20/17 09:00 Sputum Culture - Preliminary Gram Negative Andrés Resulted 04/20/17 08:47 Urine Catheterized Urine Urine Culture - Preliminary NO GROWTH IN 24 HOURS. Resulted Imaging Last Impressions Chest X-Ray 04/20/17 0600 Signed Impressions: Service Date/Time: Thursday, April 20, 2017 04:32 - CONCLUSION: Persistent but improving diffuse consolidation likely resenting improving edema. King Brown MD Abdomen X-Ray 04/15/17 1405 Signed Impressions: Service Date/Time: Saturday, April 15, 2017 15:15 - CONCLUSION: 1. Gaseous distension predominantly small bowel as described above. 2. Nasogastric tube does have the stomach decompressed. Everardo Martinez MD FACR Small Bowel X-Ray 04/12/17 0000 Signed Impressions: Service Date/Time: Wednesday, April 12, 2017 14:36 - CONCLUSION: 1. Mild small bowel dilatation without obstruction. Contrast reaches distal colon by 4 hours. Abrahan Gómez MD Head CT 04/10/17 1648 Signed Impressions: Service Date/Time: Monday, April 10, 2017 17:11 - CONCLUSION: 1. No acute intracranial abnormality or significant interval change. Daniel Carvajal MD Abdomen/Pelvis CT 04/10/17 1625 Signed Impressions: Service Date/Time: Monday, April 10, 2017 17:15 - CONCLUSION: Mild fluid and gaseous distention of small bowel, mainly the proximal small bowel. No acute focal findings in the abdomen or pelvis on noncontrast evaluation. King Shi MD Chest CT 04/10/17 0000 Signed Impressions: Service Date/Time: Monday, April 10, 2017 17:15 - CONCLUSION: 1. ETT just above the [place]. 2. Dense right lower lobe airspace consolidation with diffuse patchy nodular airspace disease throughout the remainder of the right lung and at the extreme left lung base. Findings are most consistent with pneumonia, atypical infection or aspiration. 3. No significant effusion or pneumothorax. Daniel Carvajal MD Physical Exam CONSTITUTIONAL/GENERAL: This is a morbidly obese patient, in no apparent distress. Int'd on [facility] vent'n TUBES/LINES/DRAINS: SKIN: No jaundice, rashes, or lesions. Skin temperature appropriate. Not diaphoretic. CARDIOVASCULAR: Regular rate and rhythm without murmurs, gallops, or rubs. No JVD. Peripheral pulses symmetric. RESPIRATORY/CHEST: Symmetric, unlabored respirations. Clear to auscultation. GASTROINTESTINAL: Abdomen soft, no raction to palpation; moderately distended. Less tympanic in mid abdomen No hepato-splenomegaly, or palpable masses. No guarding. Bowel sounds present. GENITOURINARY: Without palpable bladder distension. Cuellar catheter in place; urine is clear light yellow MUSCULOSKELETAL: Extremities without clubbing, cyanosis, severe edema 4+ persists NEUROLOGICAL: off sedation; seems to attempt to open eyes to voice, not following commands RN reports spontanweous BUE movements PSYCHIATRIC: Unable to assess Assessment & Plan Remarks Assessment and Plan sepsis UTI, Proteus - repeat urine clx neg @ 24 hrs Gross hematuria: resolved Acute VDRF, toleartating CPAP ARF: improving - some eosinophilia is present; resolved on repeat urine New PNA ? - sputum with E.coli - new clx with a GNB Enterococcal high grade bacteremia - S to ampicillin - 2 D echo negative for vegetation - repeat blood clx negative Ileus, now having diarrhea no e/o small bowel obstruction - C.diff negative enteric pathogens negative Critically ill, stable persistent leukocytosis - slowly improving ; ANC down to 17K today (pealked at 25 K on 04/15) Hypothermic - new ? sepsis; hypothermia resolved - repeat BC negative Severe encephalopahty - not waking up off sedation Rec's: add cefepime cont unasyn monitor WBC fu blood clx and urine clx fu GNB in sputum monitor Vicki Lua RN, MD Apr 21, 2017 14:20
--- NOTE | 2017-04-21 14:39 | HHI.CCPN ---
Subjective Remarks/Hospital Course The patient is a 72-year-old female with multiple medical comorbidities which include hypertension, diabetes mellitus, hyperlipidemia, obstructive sleep apnea on C-PAP machine at home, COPD, CVA with residual left-sided hemiparesis who presented to [facility] ED with altered mental status and emesis. She was last seen normal yesterday. The patient was on non-rebreather mask initially, however, she was intubated with etomidate, succinylcholine and placed on mechanical ventilation. Also she was placed on Versed drip for sedation. ABG post intubation showed acute hypercapnic respiratory failure with a pH of 7.36, CO2 51, pAO2 322, bicarb 28 and saturation 97%. Her laboratory data significant for acute renal failure with a BUN of 91, creatinine 3.65. Lactic acid was 1.9. Also she was found to have leukocytosis with a WBC of 17.1 associated with bandemia of 26. Her urinalysis was positive for leukocyte esterase, moderate blood and many bacteria. Chest x-ray post intubation showed ET tube above the kimberlyn, questionable elevation of right hemidiaphragm with subsegmental atelectasis. In the ER she is currently receiving a second liter of IV fluids and received cefepime and vancomycin. A Santoyo was placed in the ER and post placement the patient noted to have hematuria. to her altered mental status she was scheduled to undergo CT scan of the brain without contrast. Of note the patient was on Eliquis for a history of paroxysmal atrial fibrillation. Also a CT scan of the thorax, abdomen, pelvis without contrast were ordered by the ED physician. Most of the history was obtained from reviewing medical records as the patient is intubated and no family members present at the bedside 04/11 Patient became hypotensive overnight started on Levophed 15 mics and Vasopressin. Sedated with fentanyl, Diprivan and intubated. Afebrile. BC from yesterday GPC. 04/12: Currently afebrile. Currently on norepinephrine at 6 mcg/m and vasopressin 0.04 units per minute sedated on the ventilator and propofol and fentanyl drips. Currently undergoing small bowel follow-through. 04/13: Currently on propofol at 9 mcg/kg per minute. Off fentanyl drip. Small bowel follow-through revealed transition to colon at 4 hours. No signs of bowel obstruction. Small bowel is mildly dilatated. Creatinine currently 2.1. Edematous. Vasopressor requirements decreasing. Subjective 04/14: Afebrile. Currently on propofol; at 10 g per kilogram per minute. Positive BM. Creatinine Is currently at baseline 1.8. Abdominal x-ray pending 04/15 Remains intubated sedated with propofol. Intermittently follows commands. KUB shows gaseous distention. WBC increased to 28.5 creatinine improving 04/16: Patient remains septic remains on Levophed and vasopressin. Intermittently follows commands with the right upper extremity. WBC count is slightly improved. UO adequate. Failed CPAP trial 04/17: Remains in septic shock on vasopressin unable to wean off. Failed CPAP trials again today. Labs ordered for tomorrow. Appreciate urology reevaluation. Wean to DC Amicar CBI 04/18: Remains encephalopathic failing weaning trials. Vent day 9 without significant improvement. WBC count remains elevated at 25,000. Hematuria has restarted 04/19: WBC, Creatinine slightly improved but clinically remains the same without any improvement in neuro exam. Palliative care meeting with family today. Vent day 10. Remains off sedation approximately 48 hours, but severely encephalopathy 04/20: Despite being off sedation for several days no neurological improvement. Patient remains encephalopathic and lethargic. Not requiring pressors at this time. White count trending up. Again met with daughter yesterday she wants full code. Tentatively plan for tracheotomy Saturday if family wants to continue aggressive care 04/21: Remains off sedation with no significant change in mentation. Received 1 unit PRBC for hemoglobin of 6.8. Family is meeting about goals of care. Wants to meet with palliative care Saturday Objective Vital Signs Date Time Temp Pulse Resp B/P (MAP) Pulse Ox O2 Delivery O2 Flow Rate FiO2 04/21/17 14:00 86 04/21/17 12:00 35 04/21/17 12:00 98.6 6 115/57 (76) 100 Intake and Output 04/21/17 04/21/17 04/21/17 07:59 15:59 23:59 Intake Total 596 ml 369 ml Output Total 200 ml Balance 396 ml 369 ml Result Diagram: 04/21/17 0400 04/21/17 0400 Imaging Last Impressions Chest X-Ray 04/13/17 0600 Signed Impressions: Service Date/Time: Thursday, April 13, 2017 04:03 - CONCLUSION: Worsening bilateral pulmonary infiltrates. Anthony Duncan Jr., MD Abdomen X-Ray 04/13/17 0600 Signed Impressions: Service Date/Time: Thursday, April 13, 2017 04:10 - CONCLUSION: Unchanged dilated small bowel. Oral contrast reaches the rectal vault. Anthony Duncan Jr., MD Small Bowel X-Ray 04/12/17 0000 Signed Impressions: Service Date/Time: Wednesday, April 12, 2017 14:36 - CONCLUSION: 1. Mild small bowel dilatation without obstruction. Contrast reaches distal colon by 4 hours. Abrahan Gómez MD Head CT 04/10/17 1648 Signed Impressions: Service Date/Time: Monday, April 10, 2017 17:11 - CONCLUSION: 1. No acute intracranial abnormality or significant interval change. Daniel Carvajal MD Abdomen/Pelvis CT 04/10/17 1625 Signed Impressions: Service Date/Time: Monday, April 10, 2017 17:15 - CONCLUSION: Mild fluid and gaseous distention of small bowel, mainly the proximal small bowel. No acute focal findings in the abdomen or pelvis on noncontrast evaluation. King Shi MD Chest CT 04/10/17 0000 Signed Impressions: Service Date/Time: Monday, April 10, 2017 17:15 - CONCLUSION: 1. ETT just above the kimberlyn. 2. Dense right lower lobe airspace consolidation with diffuse patchy nodular airspace disease throughout the remainder of the right lung and at the extreme left lung base. Findings are most consistent with pneumonia, atypical infection or aspiration. 3. No significant effusion or pneumothorax. Daniel Carvajal MD Objective Remarks GENERAL: Patient is 72 yo critically ill orotracheally intubated SKIN: Warm and dry. Decubitus ulcer bilateral gluteal. Stage II. HEAD: Normocephalic. Atraumatic EYES: No scleral icterus. No injection or drainage. NECK: Supple, trachea midline. No JVD or lymphadenopathy. CARDIOVASCULAR: Regular rate and rhythm currently. S1, S2 no S4. Without murmurs, gallops, or rubs. RESPIRATORY: Breath sounds equal bilaterally. No accessory muscle use. Bilateral rhonchi GASTROINTESTINAL: Abdomen soft, non-tender, obese. No bowel sounds are appreciated : Santoyo in place with hematuria MUSCULOSKELETAL: +2 edema. Neuro: Lethargic obtunded. Off sedation for 4 days. Partially opens eyes to stimulation. Very weakly moves all extremities. Very weakly squeezes my hands with the right hand unclear purposeful or not Date of Insertion: Apr 10, 2017 Line: Central Venous Catheter Side: Right Location: Subclavian A/P Assessment and Plan Neuro/Psych: Metabolic encephalopathy secondary to sepsis History of CVA with left-sided weakness Propofol Had been held for several days without improvement in mentation. Currently on fentanyl 50 mcg/hour for ventilator synchrony Fentanyl drip previously held due to small bowel dilatation Goal of RASS -1. 04/10 -CT brain without contrast: No acute abnormalities. Pulm : Acute respiratory failure secondary to pneumonia/E Coli, Severe sepsis LAXMI COPD Continue with vent support and maintain sats above 92%. Ventilator bundle, PRVC 14/500/07/12/39, Daily SBT. Vent day 12. Proceed with Trach Saturday if family still wants aggressive. Family may reconsider goals of care Continues to fail weaning trial due to tachypnea respiratory distress. Also mental status will not permit extubation Albuterol/ipratropium aerosols every 6 hours with albuterol aerosols every 2 hours as needed for dyspnea Chest x-ray revealed bilateral persistent infiltrates CT chest: Dense RLL airspace consolidation with diffuse patchy nodular airspace disease throughout the remainder of the right lung and at the extreme left lung base. Findings are most consistent with pneumonia, CV: Septic shock-resolved History of paroxysmal atrial fibrillation currently normal sinus rhythm Hypertension Dyslipidemia Currently off all pressors for 48 hours. Maintaining map above 65 Off maintenance fluid. Echo: EF 55-60%. Lactic acid: 1.9 Renal/FEN/: Hematuria Hypocalcemia Hypopotassemia Hyponatremia Hypophosphatemia Monitor renal function, I/O's and avoid nephrotoxins Renal and Urology following Was On continuous bladder irrigations with Amicar. DCd per Dr. Cruz 04/17. Hematuria has restarted, Dr. Cruz changed santoyo out to 3 way 24 F catheter and manually irrigate. Restarted Amicar CBI. Now hospital out of Amicar GI: Small bowel dilatation On Protonix 40 mg IV daily for GI prophylaxis. Small bowel follow-through - mild dilatation of small bowel however contrast does transition to: Within 4 hours. KUB - small bowel dilatation. Contrast rectum. Repeat 04/[address] abd/pelvis possible small bowel obstruction. GI following. Nepro advance as tolerated ID: Enterococcus faecalis bacteremia Proteus UTI Escherichia coli pneumonia Continue with abx ( Unasyn) Monitor for signs infections (fever and WBC) Pharmacy to adjust doses of abx per renal function. 04/10 blood cultures Enterococcus faecalis 3/ bottles. Check BC x 2 sets 04/10. 04/11 blood cultures no growth 04/10 UA positive Proteus 04/11 - sputum -Escherichia coli 04/20- GNR in sputum Influenza screening, strep pneumonia and Legionella urinary Ag negative. Follow up on urine cx, check sputum cx Wound care is following for sacral wound ulcers. Endo: Diabetes mellitus Continue SSI to medium scale with Accu-Chek q.4h for glycemic control. Continue detemir 7units BID Heme: Anemia requiring transfusion Leukocytosis Normocytic anemia Status post 1 unit PRBC Monitor CBC and coags. MSK: Decubitus ulcer Santyl barrier cream twice a day. Wound care following GI prophylaxis with pantoprazole 40 mg daily and DVT prophylaxis with SCDs Heparin started 04/17/17, discontinued due to gross hematuria Lines: Right subclavian CVL, Right radial Art line04/10- 04/17 Patient is critically ill with septic shock, resp failure, ARF, pneumonia, UTI. Currently off pressors but mental status will not permit extubation, and patient does not tolerate weaning trial. Chest x-ray with bilateral infiltrates. Without ventilator support she will . Palliative care following. By Saturday proceed with tracheostomy and PEG tube placement Level 3 Elmo Malik MD Apr 21, 2017 14:39
[2017-04-21] MEDS: PANTOPRAZOLE SODIUM 40 MG VIAL IV PUSH SCH (15:27)
[2017-04-21] MEDS: CEFEPIME INJ 2,000 MG in SODIUM CHLORIDE 0.9% INJ 100 ML IV SCH (15:27)
[2017-04-21] MEDS: RESP: ALBUTEROL 2.5 MG/3 ML NEB (PRN) NEB (20:02)
[2017-04-21] MEDS: fentaNYL DRIP 250 ML IV PRN (21:56)
[2017-04-22] VITALS (60 sets, daily range): BP systolic 52–168; BP diastolic 37–133; PULSE 29–128; RESP 0–31; TEMP 98.3–99.4; O2SAT 69–100
[2017-04-22] MEDS: CEFEPIME INJ 2,000 MG in SODIUM CHLORIDE 0.9% INJ 100 ML IV SCH ×2 (03:00→15:02)
[2017-04-22] MEDS: CHLORHEXIDINE GLUCONATE 2 % 1 PACK (2 CLOTHS) TOP SCH (03:55)
[2017-04-22] MEDS: INSULIN NovoLIN REGULAR SUPPLEMENTAL SCALE SQ SCH ×5 (03:55→16:00)
[2017-04-22] MEDS: ARTIFICIAL TEARS OPTH SOLN 15 ML BTL EACH EYE SCH ×2 (03:55→13:23)
[2017-04-22 04:41] LABS: AUTOMATED NEUTROPHIL # 16.6 TH/MM3 (1.8-7.7); BASOPHIL # 0.1 TH/MM3 (0-0.2); BASOPHIL % 0.3 % (0.0-2.0); EOSINOPHIL # 0.1 TH/MM3 (0-0.4); EOSINOPHIL % 0.4 % (0.0-4.0); HEMATOCRIT 25.3 % (35.0-46.0); LYMPH % 17.2 % (9.0-44.0); LYMPHOCYTE # 3.7 TH/MM3 (1.0-4.8); MEAN CELL VOLUME 88.6 FL (80.0-100.0); MEAN CORPUSCULAR HEMOGLOBIN 28.4 PG (27.0-34.0); MEAN CORPUSCULAR HGB CONC 32.1 % (32.0-36.0); MONO % 4.2 % (0.0-8.0); NEUT % 77.9 % (16.0-70.0); PLATELET COUNT 321 TH/MM3 (150-450); RED BLOOD COUNT 2.86 MIL/MM3 (4.00-5.30); RED CELL DISTRIBUTION WIDTH 17.5 % (11.6-17.2); WHITE BLOOD COUNT 21.3 TH/MM3 (4.0-11.0)
[2017-04-22 04:50] LABS: HEMO FLAGS AUTO DIFF
[2017-04-22 05:09] LABS: BICARBONATE 25.8 MEQ/L (21.0-32.0); POTASSIUM 3.4 MEQ/L (3.5-5.1)
[2017-04-22 05:22] LABS: SCAN/DIFF AUTO DIFF CONFIRMED
[2017-04-22] MEDS: METOCLOPRAMIDE HCL 10 MG/2 ML VIAL IV PUSH SCH ×2 (06:05→13:22)
[2017-04-22] MEDS: AMINOCAPROIC ACID INJ 3,000 MG in SODIUM CHLORIDE 0.9% IRR BAG 3,000 ML IRRIGATION SCH (06:07)
[2017-04-22] MEDS: SODIUM CHLOR 0.9% 1000 ML INJ 1,000 ML IV SCH (06:45)
[2017-04-22] MEDS: RESP: ALBUTEROL 2.5 MG/3 ML NEB (PRN) NEB ×2 (07:45→11:52)
[2017-04-22] MEDS: ICU - POTASSIUM CHLORIDE/AQUEOUS SOLN 20 MEQ/100 ML IVPB IV PRN ×2 (08:16→10:14)
[2017-04-22] MEDS: DOCUSATE SODIUM 50 MG/SENNA 8.6 MG TAB PO SCH (08:16)
[2017-04-22] MEDS: LANTHANUM CARBONATE 500 MG CHEWABLE TABLET CHEW SCH ×3 (08:16→17:21)
[2017-04-22] MEDS: SENNOSIDES SYRUP 8.8 MG/5 ML CUP PO SCH (08:16)
[2017-04-22] MEDS: CALCIUM/VITAMIN D 250 MG/125 U TAB PO SCH (08:16)
[2017-04-22] MEDS: AMPICILLIN-SULBACTAM INJ 3 GM in SODIUM CHLORIDE 0.9% INJ 100 ML IV SCH (08:17)
[2017-04-22] MEDS: POLYETHYLENE GLYCOL 17 GM PKG PO SCH (08:17)
[2017-04-22] MEDS: VASOPRESSIN INJ 40 UNITS in DEXTROSE 5% IN WATER 100ML INJ 98 ML IV SCH ×2 (09:04)
--- NOTE | 2017-04-22 09:07 | HHI.PR ---
Subjective Patient symptoms today Pt seen and examined. Urine clear. Objective Vital Signs Vital Signs Date Time Temp Pulse Resp B/P (MAP) Pulse Ox O2 Delivery O2 Flow Rate FiO2 04/22/17 07:46 100 35 04/22/17 06:00 80 04/22/17 04:40 100 35 04/22/17 04:00 98.7 86 13 97/50 (66) 100 04/22/17 04:00 35 04/22/17 04:00 86 04/22/17 02:00 115 04/22/17 00:00 94 04/22/17 00:00 99.4 94 9 106/58 (74) 99 04/22/17 00:00 35 04/21/17 23:39 100 35 04/21/17 22:00 91 04/21/17 20:00 35 04/21/17 20:00 94 04/21/17 20:00 99.4 94 11 111/53 (72) 100 04/21/17 19:53 100 35 04/21/17 18:00 94 04/21/17 16:00 98.6 93 0 92/45 (61) 100 04/21/17 16:00 93 04/21/17 16:00 35 04/21/17 14:34 97 35 04/21/17 14:00 86 04/21/17 12:00 35 04/21/17 12:00 80 04/21/17 12:00 98.6 91 6 115/57 (76) 100 04/21/17 11:12 100 35 04/21/17 10:00 92 04/21/17 09:58 98.1 90 14 107/51 100 04/21/17 09:39 98.7 95 14 105/59 100 Intake & Output 04/22/17 04/22/17 07:00 19:00 Intake Total 863 ml Output Total 500 ml Balance 363 ml Intake Oral 0 ml IV Total 512 ml Tube Feeding 351 ml Output Urine Total 400 ml Stool Total 100 ml Result Diagram: 04/22/1739904/22/17399 Objective Remarks Abd:soft,nt,nd Santoyo catheter irrigated and clots removed. 04/17 Abd:soft,nt,nd Santoyo catheter with david urine 04/18 Abd:soft,nt,nd Santoyo: attempted to irrigate santoyo at bedside but clotted off. Will need large bore 3way catheter. 04/19 Abd:soft,nt,nd Santoyo with clear urine 04/20 Abd:soft,nt,nd Santoyo with clear urine 04/21 Abd:soft,nt,nd Santoyo with clear urine 04/22 Abd:soft,nt,nd Santoyo with clear urine Medications and IVs Current Medications Medications (Trade) Dose Ordered Sig/Meme Route Start Time Stop Time Status Last Admin Miscellaneous Information 1 [id number] XX 04/10/17 17:00 04/10/17 17:00 (Chlorhexidine 2% Cloth) Taper DAILY@04 TOP 04/11/17 04:00 04/07/18 03:59 04/22/17 03:55 (Chlorhexidine 2% Cloth) 3 pack UNSCH PRN TOP 04/10/17 17:00 (Leda-Colace) 1 tab BID PO 04/10/17 21:00 04/22/17 08:16 (Milk Of Magnesia Liq) 30 ml Q12H PRN PO 04/10/17 17:00 (Senokot) 17.2 mg Q12H PRN PO 04/10/17 17:00 (Dulcolax Supp) 10 mg DAILY PRN RECTAL 04/10/17 17:00 (Lactulose Liq) 30 ml DAILY PRN PO 04/10/17 17:00 Fentanyl Citrate 250 ml @ 5 mls/hr TITRATE PRN IV 04/10/17 17:15 04/21/17 21:56 Norepinephrine Bitartrate 250 ml @ 7.5 mls/hr TITRATE PRN IV 04/10/17 20:30 04/17/17 06:03 Vasopressin 40 units/Dextrose 100 ml @ 6 mls/hr [id number] IV 04/10/17 23:04 04/16/17 22:36 Midazolam HCl 100 ml @ 2 mls/hr TITRATE PRN IV 04/10/17 23:15 Propofol 100 ml @ 2.55 mls/hr TITRATE PRN IV 04/10/17 23:30 04/16/17 17:44 Sodium Chloride 1,000 ml @ 100 mls/hr Q10H IV 04/11/17 10:45 04/15/17 03:40 (D50w (Vial) Inj) 50 ml UNSCH PRN IV PUSH 04/11/17 10:45 (Glucagon Inj) 1 mg UNSCH PRN OTHER 04/11/17 10:45 (NovoLIN R SUPPLEMENTAL SCALE) 1 Q4H SQ 04/11/17 12:00 04/22/17 08:00 (Senna Liq) 8.8 mg DAILY PO 04/11/17 12:30 04/22/17 08:16 (Oscal-D 250-125) 250 mg Q12HR PO 04/11/17 14:30 04/22/17 08:16 (Fosrenol Chew) 500 mg TID CHEW 04/11/17 18:00 04/22/17 08:16 (Miralax) 17 gm DAILY PO 04/11/17 15:15 04/22/17 08:17 (Reglan Inj) 5 mg Q8HR IV PUSH 04/11/17 22:00 04/22/17 06:05 (Protonix Inj) 40 mg Q24H IV PUSH 04/11/17 16:00 04/21/17 15:27 Aminocaproic Acid 3000 mg/Sodium Chloride 3,012 ml @ 0 mls/hr UNSCH IRRIGATION 04/12/17 10:00 04/22/17 06:07 (Albuterol Neb) 2.5 mg Q2HR NEB PRN NEB 04/13/17 08:30 04/22/17 07:45 (Tears Naturale Opth Soln) 1 drop Q8HR EACH EYE 04/14/17 22:00 04/22/17 03:55 Ampicillin Sodium/ Sulbactam Sodium 3 gm/Sodium Chloride 100 ml @ 200 mls/hr Q12H IV 04/15/17 21:00 04/22/17 08:17 Miscellaneous Information D/C ICU ELECTROLYTE ORDERS... UNSCH PRN .XX 04/16/17 12:45 Miscellaneous Information ICU - CALL ORDERING PHYSIC... UNSCH PRN .XX 04/16/17 12:45 Potassium Chloride 100 ml @ 25 mls/hr UNSCH PRN IV 04/16/17 12:45 04/16/17 16:42 (K-Lyte Cl Eff) 50 meq UNSCH PRN PO 04/16/17 12:45 Potassium Chloride 100 ml @ 50 mls/hr UNSCH PRN IV 04/16/17 12:45 04/22/17 08:16 Magnesium Sulfate 4 gm/Sodium Chloride 108 ml @ 54 mls/hr UNSCH PRN IV 04/16/17 12:45 Magnesium Sulfate 2 gm/Sodium Chloride 104 ml @ 52 mls/hr UNSCH PRN IV 04/16/17 12:45 (Mag-Ox) 800 mg UNSCH PRN PO 04/16/17 12:45 Sodium Phosphate 30 mmol/Sodium Chloride 260 ml @ 43.333 mls/ hr UNSCH PRN IV 04/16/17 12:45 (K-Phos) 2,000 mg UNSCH PRN PO 04/16/17 12:45 Potassium Phosphate 30 mmol/ Sodium Chloride 260 ml @ 43.333 mls/ hr UNSCH PRN IV 04/16/17 12:45 Cefepime HCl 2000 mg/Sodium Chloride 100 ml @ 200 mls/hr Q12H IV 04/21/17 15:00 04/22/17 03:00 Assessment and Plan Assessment and Plan 72 y.o female with respiratory failure and gross hematuria with ARF Will start Amicar CBI to help stop hematuria Will need to irrigate santoyo Q 4 hours to remove clots Ucx with GNR's. Continue Abx. 04/17 72 y.o female with respiratory failure and gross hematuria with ARF which is improving. Creatinine at 1.5 Titrate CBI to off as urine clears Cystoscopy once stable and off vent 04/18 72 y.o female with respiratory failure and gross hematuria Change santoyo out to 3 way 24 F catheter and manually irrigate Continue to hold Heparin Restart Amicar CBI 04/19 72 y.o female with respiratory failure and gross hematuria Hematuria now resolving on Amicar CBI; irrigate santoyo prn clots Continue to hold Heparin Contine Amicar CBI at slow rate 04/20 72 y.o female with respiratory failure and gross hematuria Hematuria now resolving on Amicar CBI; irrigate santoyo prn clots Continue to hold Heparin Contine Amicar CBI at slow rate for now Cysto if pt gets off vent and is more stable in the future Will follow 04/21 72 y.o female with respiratory failure and gross hematuria Hematuria now resolving on Amicar CBI; irrigate santoyo prn clots Continue to hold Heparin Continue Amicar CBI at slow rate for now Cysto if pt gets off vent and is more stable in the future Will follow 04/22 72 y.o female with respiratory failure and gross hematuria Hematuria now resolving on Amicar CBI; irrigate santoyo prn clots Continue to hold Heparin Continue Amicar CBI at slow rate for now Arash Cruz DO Apr 22, 2017 09:07
--- NOTE | 2017-04-22 12:28 | HHI.CCPN ---
Subjective Remarks/Hospital Course The patient is a 72-year-old female with multiple medical comorbidities which include hypertension, diabetes mellitus, hyperlipidemia, obstructive sleep apnea on C-PAP machine at home, COPD, CVA with residual left-sided hemiparesis who presented to [facility] ED with altered mental status and emesis. She was last seen normal yesterday. The patient was on non-rebreather mask initially, however, she was intubated with etomidate, succinylcholine and placed on mechanical ventilation. Also she was placed on Versed drip for sedation. ABG post intubation showed acute hypercapnic respiratory failure with a pH of 7.36, CO2 51, pAO2 322, bicarb 28 and saturation 97%. Her laboratory data significant for acute renal failure with a BUN of 91, creatinine 3.65. Lactic acid was 1.9. Also she was found to have leukocytosis with a WBC of 17.1 associated with bandemia of 26. Her urinalysis was positive for leukocyte esterase, moderate blood and many bacteria. Chest x-ray post intubation showed ET tube above the kimberlyn, questionable elevation of right hemidiaphragm with subsegmental atelectasis. In the ER she is currently receiving a second liter of IV fluids and received cefepime and vancomycin. A Santoyo was placed in the ER and post placement the patient noted to have hematuria. to her altered mental status she was scheduled to undergo CT scan of the brain without contrast. Of note the patient was on Eliquis for a history of paroxysmal atrial fibrillation. Also a CT scan of the thorax, abdomen, pelvis without contrast were ordered by the ED physician. Most of the history was obtained from reviewing medical records as the patient is intubated and no family members present at the bedside 04/11 Patient became hypotensive overnight started on Levophed 15 mics and Vasopressin. Sedated with fentanyl, Diprivan and intubated. Afebrile. BC from yesterday GPC. 04/12: Currently afebrile. Currently on norepinephrine at 6 mcg/m and vasopressin 0.04 units per minute sedated on the ventilator and propofol and fentanyl drips. Currently undergoing small bowel follow-through. 04/13: Currently on propofol at 9 mcg/kg per minute. Off fentanyl drip. Small bowel follow-through revealed transition to colon at 4 hours. No signs of bowel obstruction. Small bowel is mildly dilatated. Creatinine currently 2.1. Edematous. Vasopressor requirements decreasing. Subjective 04/14: Afebrile. Currently on propofol; at 10 g per kilogram per minute. Positive BM. Creatinine Is currently at baseline 1.8. Abdominal x-ray pending 04/15 Remains intubated sedated with propofol. Intermittently follows commands. KUB shows gaseous distention. WBC increased to 28.5 creatinine improving 04/16: Patient remains septic remains on Levophed and vasopressin. Intermittently follows commands with the right upper extremity. WBC count is slightly improved. UO adequate. Failed CPAP trial 04/17: Remains in septic shock on vasopressin unable to wean off. Failed CPAP trials again today. Labs ordered for tomorrow. Appreciate urology reevaluation. Wean to DC Amicar CBI 04/18: Remains encephalopathic failing weaning trials. Vent day 9 without significant improvement. WBC count remains elevated at 25,000. Hematuria has restarted 04/19: WBC, Creatinine slightly improved but clinically remains the same without any improvement in neuro exam. Palliative care meeting with family today. Vent day 10. Remains off sedation approximately 48 hours, but severely encephalopathy 04/20: Despite being off sedation for several days no neurological improvement. Patient remains encephalopathic and lethargic. Not requiring pressors at this time. White count trending up. Again met with daughter yesterday she wants full code. Tentatively plan for tracheotomy Saturday if family wants to continue aggressive care 04/21: Remains off sedation with no significant change in mentation. Received 1 unit PRBC for hemoglobin of 6.8. Family is meeting about goals of care. Wants to meet with palliative care Sunday 04/22: No improvement in mental status of overall clinical status. Remains encephalopathy. On low-dose fentanyl at 50 g per hour Objective Vital Signs Date Time Temp Pulse Resp B/P (MAP) Pulse Ox O2 Delivery O2 Flow Rate FiO2 04/22/17 11:52 100 35 04/22/17 10:01 110 20 135/56 (82) 04/22/17 08:01 98.5 Intake and Output 04/22/17 04/22/17 04/23/17 08:00 16:00 00:00 Intake Total 766 ml 200 ml Output Total 500 ml Balance 266 ml 200 ml Result Diagram: 10/16/17 0400 10/16/17 0400 Imaging Last Impressions Chest X-Ray 04/13/17 0600 Signed Impressions: Service Date/Time: Thursday, April 13, 2017 04:03 - CONCLUSION: Worsening bilateral pulmonary infiltrates. Anthony Duncan Jr., MD Abdomen X-Ray 04/13/17 0600 Signed Impressions: Service Date/Time: Thursday, April 13, 2017 04:10 - CONCLUSION: Unchanged dilated small bowel. Oral contrast reaches the rectal vault. Anthony Duncan Jr., MD Small Bowel X-Ray 04/12/17 0000 Signed Impressions: Service Date/Time: Wednesday, April 12, 2017 14:36 - CONCLUSION: 1. Mild small bowel dilatation without obstruction. Contrast reaches distal colon by 4 hours. Abrahan Gómez MD Head CT 04/10/17 1648 Signed Impressions: Service Date/Time: Monday, April 10, 2017 17:11 - CONCLUSION: 1. No acute intracranial abnormality or significant interval change. Daniel Carvajal MD Abdomen/Pelvis CT 04/10/17 1625 Signed Impressions: Service Date/Time: Monday, April 10, 2017 17:15 - CONCLUSION: Mild fluid and gaseous distention of small bowel, mainly the proximal small bowel. No acute focal findings in the abdomen or pelvis on noncontrast evaluation. King Shi MD Chest CT 04/10/17 0000 Signed Impressions: Service Date/Time: Monday, April 10, 2017 17:15 - CONCLUSION: 1. ETT just above the kimberlyn. 2. Dense right lower lobe airspace consolidation with diffuse patchy nodular airspace disease throughout the remainder of the right lung and at the extreme left lung base. Findings are most consistent with pneumonia, atypical infection or aspiration. 3. No significant effusion or pneumothorax. Daniel Carvajal MD Objective Remarks GENERAL: Patient is 72 yo critically ill orotracheally intubated SKIN: Warm and dry. Decubitus ulcer bilateral gluteal. Stage II. HEAD: Normocephalic. Atraumatic EYES: No scleral icterus. No injection or drainage. NECK: Supple, trachea midline. No JVD or lymphadenopathy. CARDIOVASCULAR: Regular rate and rhythm currently. S1, S2 no S4. Without murmurs, gallops, or rubs. RESPIRATORY: Breath sounds equal bilaterally. No accessory muscle use. Bilateral rhonchi GASTROINTESTINAL: Abdomen soft, non-tender, obese. No bowel sounds are appreciated : Santoyo in place with hematuria MUSCULOSKELETAL: +2 edema. Neuro: Lethargic obtunded. Off sedation for 4 days. Partially opens eyes to stimulation. Very weakly moves all extremities. Very weakly squeezes with right hand Date of Insertion: Apr 10, 2017 Line: Central Venous Catheter Side: Right Location: Subclavian A/P Assessment and Plan Neuro/Psych: Metabolic encephalopathy secondary to sepsis History of CVA with left-sided weakness On fentanyl 50 mcg/hour for ventilator synchrony. DC infusion and start when necessary fentanyl every 3 hours 50 g when necessary Fentanyl drip previously held due to small bowel dilatation Goal of RASS -1. 04/10 -CT brain without contrast: No acute abnormalities. Pulm : Acute respiratory failure secondary to pneumonia/E Coli, Severe sepsis LAXMI COPD Continue with vent support and maintain sats above 92%. Ventilator bundle, PRVC 14/500/1/5/40, Daily SBT. Vent day 13 Palliative care meeting with family today. I donot recommend tracheostomy and PEG tube due to overall poor prognosis Continues to fail weaning trial due to tachypnea respiratory distress. Also mental status will not permit extubation Albuterol/ipratropium aerosols every 6 hours with albuterol aerosols every 2 hours as needed for dyspnea Chest x-ray revealed bilateral persistent infiltrates CT chest: Dense RLL airspace consolidation with diffuse patchy nodular airspace disease throughout the remainder of the right lung and at the extreme left lung base. Findings are most consistent with pneumonia, CV: Septic shock-resolved History of paroxysmal atrial fibrillation currently normal sinus rhythm Hypertension Dyslipidemia Currently off all pressors for 48 hours. Maintaining map above 65 Off maintenance fluid. Echo: EF 55-60%. Lactic acid: 1.9 Renal/FEN/: Hematuria Hypocalcemia Hypopotassemia Hyponatremia Hypophosphatemia Monitor renal function, I/O's and avoid nephrotoxins Renal and Urology following Was On continuous bladder irrigations with Amicar. DCd per Dr. Cruz 04/17. Hematuria has restarted, Dr. Cruz changed santoyo out to 3 way 24 F catheter and manually irrigate. Restarted Amicar CBI. Now hospital out of Amicar GI: Small bowel dilatation On Protonix 40 mg IV daily for GI prophylaxis. Small bowel follow-through - mild dilatation of small bowel however contrast does transition to: Within 4 hours. KUB - small bowel dilatation. Contrast rectum. Repeat 04/[address] abd/pelvis possible small bowel obstruction. GI following. Nepro advance as tolerated ID: Enterococcus faecalis bacteremia Proteus UTI Escherichia coli pneumonia GNR in sputum 04/20 Continue with abx ( Unasyn) Monitor for signs infections (fever and WBC) Pharmacy to adjust doses of abx per renal function. 04/10 blood cultures Enterococcus faecalis 09/08 bottles. Check BC x 2 sets 04/10. 04/11 blood cultures no growth 04/10 UA positive Proteus 04/11 - sputum -Escherichia coli 04/20- GNR in sputum Influenza screening, strep pneumonia and Legionella urinary Ag negative. Follow up on urine cx, check sputum cx Wound care is following for sacral wound ulcers. Endo: Diabetes mellitus Continue SSI to medium scale with Accu-Chek q.4h for glycemic control. Continue detemir 7units BID Heme: Anemia requiring transfusion Leukocytosis Normocytic anemia Status post 1 unit PRBC Monitor CBC and coags. MSK: Decubitus ulcer Santyl barrier cream twice a day. Wound care following GI prophylaxis with pantoprazole 40 mg daily and DVT prophylaxis with SCDs Heparin started 04/17/17, discontinued due to gross hematuria Lines: Right subclavian CVL, Right radial Art line04/10- 04/17 Patient is critically ill with septic shock, resp failure, ARF, pneumonia, UTI. Currently off pressors but mental status will not permit extubation, and patient does not tolerate weaning trial. Chest x-ray with bilateral infiltrates. Palliative care following. Level 2 Elmo Malik MD Apr 22, 2017 12:28
--- NOTE | 2017-04-22 12:52 | HHI.HCPN ---
Reason for visit a. To assist with evaluation and management of symptoms including: encephalopathy, dyspnea, debility, pain, anxiety b. To assist medical decision maker(s) with: better understanding of current medical conditions; weighing benefits/burdens of medical treatment options; making medical treatment decisions. . Subjective/Interval History Ms. Mackey was seen and assessed in [facility], room 527. Patient remains intubated on mechanical ventilator, continues to fail weaning trails due dyspnea and poor mentation. Fentanyl infusion discontinued; orders for PRN fentanyl 50 g q3 hours. Patient remains encephalopathic with no significant improvement in neurological status or overall clinical condition for the past several days. Patient arouses to verbal stimuli, blinks to threat. Patient does not answer questions, does no follow commands. Afebrile. WBC @ 21.3 UA + Proteus on 04/10/17; Blood culture + Enterococcus faecalis; Sputum + Escherichia coli on 04/11/17. Follow-up cultures on 04/20/17 : Sputum + gram-negative rods; Urine + yeast - ID to follow. Hgb increased from 6.8 (04/21/17) to 8.1 (04/22/17) status post transfusion. . Family/friend interactions Spoke to patient's daughter (Cheryl) to discuss patient's clinical condition and further clarify medical treatment goals. Patient remains encephalopathic with no significant improvement in neurological status or overall clinical condition for the past several days. Cheryl states she spoke to her 2 brothers (Beck and Memo) over the weekend, and they agree their mother would not want to proceed with Trach/PEG at this point in time. She states her brothers have not contacted the hospital and have turned their telephones off. I did attempt to contact the patient's 2 children via telephone, neither phone was accepting messages at the time of my call. . Advance Directives Advance Directive Specifics Documented care wishes: Patient's daughter (Cheryl) stating she has been designated as the HCS decision- maker and will make copies available tomorrow at the scheduled family meeting. . Objective Vital Signs Date Time Temp Pulse Resp B/P (MAP) Pulse Ox O2 Delivery O2 Flow Rate FiO2 04/22/17 11:52 100 35 04/22/17 10:01 110 20 135/56 (82) 96 04/22/17 10:00 104 04/22/17 10:00 104 22 96 04/22/17 09:45 102 21 132/57 (82) 97 04/22/17 09:30 109 22 96/59 (71) 98 04/22/17 09:16 108 31 96/69 (78) 100 04/22/17 09:00 110 26 95/52 (66) 100 04/22/17 08:45 102 27 104/54 (71) 100 04/22/17 08:30 106 18 103/53 (70) 100 04/22/17 08:15 107 20 126/59 (81) 100 04/22/17 08:05 103 19 132/60 (84) 100 04/22/17 08:01 98.5 107 15 168/133 (145) 04/22/17 08:00 35 04/22/17 08:00 113 20 100 04/22/17 08:00 113 04/22/17 07:46 100 35 04/22/17 07:45 106 18 119/57 (77) 100 04/22/17 07:39 128 24 127/75 (92) 98 04/22/17 07:30 100 17 80/52 (61) 100 04/22/17 07:15 98 15 96/54 (68) 100 04/22/17 07:00 93 10 97/49 (65) 100 04/22/17 06:00 80 04/22/17 04:40 100 35 04/22/17 04:00 98.7 86 13 97/50 (66) 100 04/22/17 04:00 35 04/22/17 04:00 86 04/22/17 02:00 115 04/22/17 00:00 94 04/22/17 00:00 99.4 94 9 106/58 (74) 99 04/22/17 00:00 35 04/21/17 23:39 100 35 04/21/17 22:00 91 04/21/17 20:00 35 04/21/17 20:00 94 04/21/17 20:00 99.4 94 11 111/53 (72) 100 04/21/17 19:53 100 35 04/21/17 18:00 94 04/21/17 16:00 98.6 93 0 92/45 (61) 100 04/21/17 16:00 93 04/21/17 16:00 35 04/21/17 14:34 97 35 04/21/17 14:00 86 Intake & Output 04/22/17 04/22/17 07:00 19:00 Intake Total 866 ml 200 ml Output Total 500 ml Balance 366 ml 200 ml Intake Oral 0 ml IV Total 515 ml 200 ml Tube Feeding 351 ml Output Urine Total 400 ml Stool Total 100 ml . Physical Exam CONSTITUTIONAL/GENERAL: This is an obese, elderly female patient currently intubated on a chemical ventilator TUBES/LINES/DRAINS: PIV, CVL, OGT, ETT, Rectal tube, Podus boots, Cuellar catheter , soft restraints SKIN: No jaundice, rashes, or lesions. Edema. No wounds seen anteriorly. Skin temperature appropriate. Not diaphoretic. HEAD: Atraumatic. Normocephalic. EYES: Pupils round and equal. No scleral icterus. No injection or drainage. Fundi not examined. ENT: Hearing grossly normal. Nose without bleeding or purulent drainage. NECK: Trachea midline. CARDIOVASCULAR: Regular rate and rhythm without murmurs, gallops, or rubs. No JVD. Peripheral pulses symmetric. RESPIRATORY/CHEST: Intubated on mechanical ventilation. Diminished breath sounds ; + rhonchi bilaterally GASTROINTESTINAL: Abdomen soft, non-tender, nondistended. Bowel sounds present. GENITOURINARY: Without palpable bladder distension. Cuellar catheter with CBI. MUSCULOSKELETAL: Extremities without clubbing or cyanosis. BLE with +2 edema from toes to knee. Hand swollen bilaterally. LYMPHATICS: No palpable cervical or supraclavicular adenopathy. NEUROLOGICAL: Arouses to verbal stimuli, blinks to threat. Does not respond verbally; does not follow commands PSYCHIATRIC: Unable to assess secondary to clinical condition. . Diagnostic Tests Laboratory Laboratory Tests Test 04/20/17 05:30 04/20/17 08:45 04/20/17 08:47 04/21/17 04:00 White Blood Count 23.5 TH/MM3 (4.0-11.0) 20.7 TH/MM3 (4.0-11.0) Red Blood Count 2.58 MIL/MM3 (4.00-5.30) 2.40 MIL/MM3 (4.00-5.30) Hemoglobin 7.3 GM/DL (11.6-15.3) 6.8 GM/DL (11.6-15.3) Hematocrit 22.7 % (35.0-46.0) 21.4 % (35.0-46.0) Mean Corpuscular Volume 88.2 FL (80.0-100.0) 88.9 FL (80.0-100.0) Mean Corpuscular Hemoglobin 28.2 PG (27.0-34.0) 28.3 PG (27.0-34.0) Mean Corpuscular Hemoglobin Concent 32.0 % (32.0-36.0) 31.9 % (32.0-36.0) Red Cell Distribution Width 19.5 % (11.6-17.2) 19.3 % (11.6-17.2) Platelet Count 245 TH/MM3 (150-450) 275 TH/MM3 (150-450) Mean Platelet Volume 9.4 FL (7.0-11.0) 8.9 FL (7.0-11.0) Neutrophils (%) (Auto) 78.4 % (16.0-70.0) 80.2 % (16.0-70.0) Lymphocytes (%) (Auto) 16.6 % (9.0-44.0) 14.7 % (9.0-44.0) Monocytes (%) (Auto) 3.9 % (0.0-8.0) 4.0 % (0.0-8.0) Eosinophils (%) (Auto) 0.9 % (0.0-4.0) 0.9 % (0.0-4.0) Basophils (%) (Auto) 0.2 % (0.0-2.0) 0.2 % (0.0-2.0) Neutrophils # (Auto) 18.5 TH/MM3 (1.8-7.7) 16.6 TH/MM3 (1.8-7.7) Lymphocytes # (Auto) 3.9 TH/MM3 (1.0-4.8) 3.1 TH/MM3 (1.0-4.8) Monocytes # (Auto) 0.9 TH/MM3 (0-0.9) 0.8 TH/MM3 (0-0.9) Eosinophils # (Auto) 0.2 TH/MM3 (0-0.4) 0.2 TH/MM3 (0-0.4) Basophils # (Auto) 0.0 TH/MM3 (0-0.2) 0.0 TH/MM3 (0-0.2) CBC Comment AUTO DIFF AUTO DIFF Differential Total Cells Counted 100 100 Neutrophils % (Manual) 76 % (16-70) 82 % (16-70) Band Neutrophils % 5 % (0-6) Lymphocytes % 11 % (9-44) 13 % (9-44) Monocytes % 3 % (0-8) 2 % (0-8) Eosinophils % 2 % (0-4) Neutrophils # (Manual) 19.7 TH/MM3 (1.8-7.7) 17.6 TH/MM3 (1.8-7.7) Metamyelocytes 1 % (0-1) 1 % (0-1) Myelocytes 2 % (0-0) 2 % (0-0) Differential Comment FINAL DIFF MANUAL FINAL DIFF MANUAL Toxic Granulation 2+ (NORMAL) Platelet Estimate NORMAL (NORMAL) NORMAL (NORMAL) Platelet Morphology Comment ENLARGED (NORMAL) NORMAL (NORMAL) Blood Urea Nitrogen 44 MG/DL (7-18) 45 MG/DL (7-18) Creatinine 1.30 MG/DL (0.50-1.00) 1.41 MG/DL (0.50-1.00) Random Glucose 140 MG/DL (74-106) 134 MG/DL (74-106) Total Protein 5.7 GM/DL (6.4-8.2) 5.6 GM/DL (6.4-8.2) Albumin 1.3 GM/DL (3.4-5.0) 1.3 GM/DL (3.4-5.0) Calcium Level 8.0 MG/DL (8.5-10.1) 8.2 MG/DL (8.5-10.1) Alkaline Phosphatase 518 U/L (45-117) 468 U/L (45-117) Aspartate Amino Transf (AST/SGOT) 36 U/L (15-37) 37 U/L (15-37) Alanine Aminotransferase (ALT/SGPT) 21 U/L (10-53) 20 U/L (10-53) Total Bilirubin 0.4 MG/DL (0.2-1.0) 0.4 MG/DL (0.2-1.0) Sodium Level 134 MEQ/L (136-145) 136 MEQ/L (136-145) Potassium Level 3.5 MEQ/L (3.5-5.1) 3.8 MEQ/L (3.5-5.1) Chloride Level 102 MEQ/L (98-107) 101 MEQ/L (98-107) Carbon Dioxide Level 25.6 MEQ/L (21.0-32.0) 24.1 MEQ/L (21.0-32.0) Anion Gap 6 MEQ/L (5-15) 11 MEQ/L (5-15) Estimat Glomerular Filtration Rate 40 ML/MIN (>89) 36 ML/MIN (>89) Urine Eosinophils NONE SEEN /HPF (NONE SEEN) Urine Color COLORLESS (YELLW/STRAW) Urine Turbidity HAZY (CLEAR) Urine pH 5.5 (5.0-8.5) Urine Specific [place] 1.008 (1.002-1.035) Urine Protein NEG mg/dL (NEG-TRACE) Urine Glucose (UA) NEG mg/dL (NEG) Urine Ketones NEG mg/dL (NEG) Urine Occult Blood MOD (NEG) Urine Nitrite NEG (NEG) Urine Bilirubin NEG (NEG) Urine Urobilinogen LESS THAN 2.0 MG/DL (LESS Urine Leukocyte Esterase LARGE (NEG) Urine RBC 30 /hpf (0-3) Urine WBC /hpf (0-5) Urine WBC Clumps FEW (NONE) Urine Squamous Epithelial Cells <1 /hpf (0-5) Urine Bacteria FEW /hpf (NONE) Urine Mucus FEW /lpf (OCC) Microscopic Urinalysis Comment CATH-CULTURE IND Target Cells 1+ (NORMAL) Stomatocytes 2+ (NORMAL) Magnesium Level 2.0 MG/DL (1.5-2.5) Test 04/22/17 04:00 White Blood Count 21.3 TH/MM3 (4.0-11.0) Red Blood Count 2.86 MIL/MM3 (4.00-5.30) Hemoglobin 8.1 GM/DL (11.6-15.3) Hematocrit 25.3 % (35.0-46.0) Mean Corpuscular Volume 88.6 FL (80.0-100.0) Mean Corpuscular Hemoglobin 28.4 PG (27.0-34.0) Mean Corpuscular Hemoglobin Concent 32.1 % (32.0-36.0) Red Cell Distribution Width 17.5 % (11.6-17.2) Platelet Count 321 TH/MM3 (150-450) Mean Platelet Volume 8.5 FL (7.0-11.0) Neutrophils (%) (Auto) 77.9 % (16.0-70.0) Lymphocytes (%) (Auto) 17.2 % (9.0-44.0) Monocytes (%) (Auto) 4.2 % (0.0-8.0) Eosinophils (%) (Auto) 0.4 % (0.0-4.0) Basophils (%) (Auto) 0.3 % (0.0-2.0) Neutrophils # (Auto) 16.6 TH/MM3 (1.8-7.7) Lymphocytes # (Auto) 3.7 TH/MM3 (1.0-4.8) Monocytes # (Auto) 0.9 TH/MM3 (0-0.9) Eosinophils # (Auto) 0.1 TH/MM3 (0-0.4) Basophils # (Auto) 0.1 TH/MM3 (0-0.2) CBC Comment AUTO DIFF Differential Comment AUTO DIFF CONFIRMED Blood Urea Nitrogen 48 MG/DL (7-18) Creatinine 1.34 MG/DL (0.50-1.00) Random Glucose 129 MG/DL (74-106) Calcium Level 7.9 MG/DL (8.5-10.1) Sodium Level 136 MEQ/L (136-145) Potassium Level 3.4 MEQ/L (3.5-5.1) Chloride Level 102 MEQ/L (98-107) Carbon Dioxide Level 25.8 MEQ/L (21.0-32.0) Anion Gap 8 MEQ/L (5-15) Estimat Glomerular Filtration Rate 39 ML/MIN (>89) . Result Diagram: 04/22/17 0400 04/22/17 0400 Microbiology Microbiology Date/Time Source Procedure Growth Status 04/20/17 09:00 Sputum Endotracheal Gram Stain - Final Resulted 04/20/17 09:00 Sputum Culture - Preliminary Gram Negative Andrés Resulted 04/20/17 08:47 Urine Catheterized Urine Urine Culture - Preliminary Yeast-Id To Follow Resulted . Imaging Last 72 hours Impressions Chest X-Ray 04/20/17 0600 Signed Impressions: Service Date/Time: Thursday, April 20, 2017 04:32 - CONCLUSION: Persistent but improving diffuse consolidation likely resenting improving edema. King Brown MD . Procedures 04/10/17: Intubation 04/10/17: Central line placement 04/10/17: Right radial arterial line . Assessment and Plan Disease Oriented Problem List: (1) PAROXYSMAL ATRIAL FIBRILLATION (2) HTN (hypertension) (3) LAXMI on CPAP (4) History of CVA with residual deficit (5) Elevated troponin I level (6) Pneumonia (7) Acute respiratory failure (8) Acute renal failure (9) Sepsis (10) UTI (urinary tract infection) (11) Diabetes mellitus (12) Leukocytosis Symptom Scale: (1) Debility (2) Encephalopathy (3) Dyspnea (4) Pain (5) Anxiety Pertinent Non-Medical Issues Psychosocial: Patient was born in [place], moving to [place] in 1978. She has 3 sisters and 2 brothers. 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 Her in 2003 from lung cancer, together she and her had one daughter. The patient has a total of 4 biological children children. Lamin Luna, Beck) who live locally. Her daughter, Noemí, in January,. Spiritual: Anglican ricardo Legal: Per [place] statutes, in the absence of written advanced directives healthcare proxy decision making would fall to the majority of the patient's living adult children (Lamin Luna, Beck). The patient's daughter (Cheryl) states her mother has designated her as the healthcare surrogate decision maker ; she states she is willing to provide copies of this documentation. Ethical issues impacting care: No known ethical issues impacting care at this time. . Important Contacts Cheryl Fan, daughter: [phone] or [phone] Noemí, daughter: [phone] Beck, son: [phone] Memo, son: [phone] . Prognosis Ms. Mackey is a 71-year-old female patient with a complex medical history that includes DM, hypothyroidism, anemia, gout, hypertension, hyperlipoproteinemia, history of CVA with residual left-sided weakness, chronic kidney insufficiency, atrial fibrillation and obstructive sleep apnea. This is the patient's third known hospitalization for management of sepsis since October,. The patient has been intubated for 9 days, she is not tolerating weaning. She remains encephalopathic off sedation 24 hours. Chest x-ray with bilateral infiltrates. Patient is critically ill with septic shock, respiratory failure, ARF, pneumonia, UTI. If goals are to remain aggressive, patient will require trach and PEG tube placement. . Code Status: Full Code Plan * NO CODE * Decision-making: Per [place] statutes, in the absence of written advanced directives healthcare proxy decision making would fall to the majority of the patient's living adult children (Cheryl, Lamin, Beck). * Patient's daughter (Cheryl) has DURABLE POWER OF SALESPERSON [employer]ARD GOODS for finances only. She is not the healthcare proxy decision maker. * Patient remains critically ill with septic shock, respiratory failure, ARF, pneumonia and UTI. She no longer requires pressor support but is unable to wean from mechanical ventilator. Patient remains encephalopathic off sedation 24 hours. If goals are to remain aggressive the patient will require tracheostomy and PEG tube placement. Transitioning to comfort focused care would also be an appropriate decision at this time. * Discussed with bedside nurse ( Leslie) and Dr. Malik * 04/22/2017 @ 1214: Spoke to patient's daughter (Cheryl) to discuss patient's clinical condition and further clarify medical treatment goals. Patient remains encephalopathic with no significant improvement in neurological status or overall clinical condition for the past several days. Cheryl states she spoke to her 2 brothers (Beck and Memo) over the weekend, and they agree their mother would not want to proceed with Trach/PEG at this point in time. She states her brothers have not contacted the hospital and have turned their telephones off. I did attempt to contact the patient's 2 children via telephone, neither phone was accepting messages at the time of my call. * 04/22/2017 @ 1725: Meet with patient's daughter (Cheryl) in family conference room to discuss patient's ongoing decline. Palliative care has attempted to contact the patient's 2 sons several times (2 attempts today on 04/22/2017). Cheryl states she has spoke to her entire family over the weekend, and they all indicate the patient would not want to be kept alive artificially under these circumstances. She states her brothers have also verbalized that they do not wish for their mother to suffer any longer. They are requesting compassionate withdrawal of artificial life support. * Signed exhibits B and C have been placed on the patient's chart * Orders for comfort medication have been placed in the computer. * Symptom management - encephalopathy: CT head on 04/10/17 showed no acute intracranial abnormalities or significant interval change. Patient remains encephalopathic * Symptom management - debility: Patient with a complex medical history that includes DM, hypothyroidism, anemia, gout, hypertension, hyperlipoproteinemia, history of CVA with residual left-sided weakness, chronic kidney insufficiency, atrial fibrillation and obstructive sleep apnea. This is the patient's third known hospitalization for management of sepsis since October,. She is significantly deconditioned, having experienced an acute decline in the past 6 months. * Symptom management- dyspnea: Patient remains intubated on mechanical ventilator. She is not tolerating attempts to wean secondary to tachypnea and decreased mentation. On Albuterol/Ipratropium nebs q6 hours; PRN nebs are also available q2 hours PRN for dyspnea. * Palliative care will continue to follow this patient throughout her hospitalization to establish trust, assist with symptom management and clarification of medical treatment goals. . Margi Mederos Apr 22, 2017 12:52
[2017-04-22] MEDS: fentaNYL CITRATE 250 MCG/5 ML AMP IV PUSH PRN ×2 (13:22→18:06)
--- NOTE | 2017-04-22 15:49 | HHI.IDPN ---
Subjective Subjective Remarks afebrile tolerating TF @ 30cc less diarrhea BP low remains obtunded Antibiotics unasyn cefepime Allergies: Coded Allergies: *MDRO Multi-Drug Resistant Organism (Verified Adverse Reaction, Unknown, ) MRSA PCR Screen POSITIVE - 10/24/2016 MRSA (sputum)-10/24/16 Objective . Vital Signs Date Time Temp Pulse Resp B/P (MAP) Pulse Ox O2 Delivery O2 Flow Rate FiO2 04/22/17 15:35 100 35 04/22/17 14:00 91 04/22/17 12:30 99 18 99/47 (64) 100 04/22/17 12:15 95 15 88/44 (59) 100 04/22/17 12:00 35 04/22/17 12:00 98.3 98 15 98/51 (67) 100 04/22/17 12:00 92 04/22/17 11:52 100 35 04/22/17 11:46 97 17 100/59 (73) 100 04/22/17 11:30 103 21 118/52 (74) 100 04/22/17 11:15 106 20 113/54 (73) 100 04/22/17 11:00 111 21 121/57 (78) 98 04/22/17 10:01 110 20 135/56 (82) 96 04/22/17 10:00 104 04/22/17 10:00 104 22 96 04/22/17 09:45 102 21 132/57 (82) 97 04/22/17 09:30 109 22 96/59 (71) 98 04/22/17 09:16 108 31 96/69 (78) 100 04/22/17 09:00 110 26 95/52 (66) 100 04/22/17 08:45 102 27 104/54 (71) 100 04/22/17 08:30 106 18 103/53 (70) 100 04/22/17 08:15 107 20 126/59 (81) 100 04/22/17 08:05 103 19 132/60 (84) 100 04/22/17 08:01 98.5 107 15 168/133 (145) 04/22/17 08:00 35 04/22/17 08:00 113 20 100 04/22/17 08:00 113 04/22/17 07:46 100 35 04/22/17 07:45 106 18 119/57 (77) 100 04/22/17 07:39 128 24 127/75 (92) 98 04/22/17 07:30 100 17 80/52 (61) 100 04/22/17 07:15 98 15 96/54 (68) 100 04/22/17 07:00 93 10 97/49 (65) 100 04/22/17 06:00 80 04/22/17 04:40 100 35 04/22/17 04:00 98.7 86 13 97/50 (66) 100 04/22/17 04:00 35 04/22/17 04:00 86 04/22/17 02:00 115 04/22/17 00:00 94 04/22/17 00:00 99.4 94 9 106/58 (74) 99 04/22/17 00:00 35 04/21/17 23:39 100 35 04/21/17 22:00 91 04/21/17 20:00 35 04/21/17 20:00 94 04/21/17 20:00 99.4 94 11 111/53 (72) 100 04/21/17 19:53 100 35 04/21/17 18:00 94 04/21/17 16:00 98.6 93 0 92/45 (61) 100 04/21/17 16:00 93 04/21/17 16:00 35 04/22/17 04/22/17 04/23/17 14:59 22:59 06:59 Intake Total 311.8 ml Balance 311.8 ml IV Total 311.8 ml . Laboratory Tests Test 04/21/17 04:00 04/22/17 04:00 White Blood Count 20.7 TH/MM3 21.3 TH/MM3 Red Blood Count 2.40 MIL/MM3 2.86 MIL/MM3 Hemoglobin 6.8 GM/DL 8.1 GM/DL Hematocrit 21.4 % 25.3 % Mean Corpuscular Volume 88.9 FL 88.6 FL Mean Corpuscular Hemoglobin 28.3 PG 28.4 PG Mean Corpuscular Hemoglobin Concent 31.9 % 32.1 % Red Cell Distribution Width 19.3 % 17.5 % Platelet Count 275 TH/MM3 321 TH/MM3 Mean Platelet Volume 8.9 FL 8.5 FL Neutrophils (%) (Auto) 80.2 % 77.9 % Lymphocytes (%) (Auto) 14.7 % 17.2 % Monocytes (%) (Auto) 4.0 % 4.2 % Eosinophils (%) (Auto) 0.9 % 0.4 % Basophils (%) (Auto) 0.2 % 0.3 % Neutrophils # (Auto) 16.6 TH/MM3 16.6 TH/MM3 Lymphocytes # (Auto) 3.1 TH/MM3 3.7 TH/MM3 Monocytes # (Auto) 0.8 TH/MM3 0.9 TH/MM3 Eosinophils # (Auto) 0.2 TH/MM3 0.1 TH/MM3 Basophils # (Auto) 0.0 TH/MM3 0.1 TH/MM3 CBC Comment AUTO DIFF AUTO DIFF Differential Total Cells Counted 100 Neutrophils % (Manual) 82 % Lymphocytes % 13 % Monocytes % 2 % Neutrophils # (Manual) 17.6 TH/MM3 Metamyelocytes 1 % Myelocytes 2 % Differential Comment FINAL DIFF MANUAL AUTO DIFF CONFIRMED Platelet Estimate NORMAL Platelet Morphology Comment NORMAL Target Cells 1+ Stomatocytes 2+ Laboratory Tests Test 04/21/17 04:00 04/22/17 04:00 Blood Urea Nitrogen 45 MG/DL 48 MG/DL Creatinine 1.41 MG/DL 1.34 MG/DL Random Glucose 134 MG/DL 129 MG/DL Total Protein 5.6 GM/DL Albumin 1.3 GM/DL Calcium Level 8.2 MG/DL 7.9 MG/DL Magnesium Level 2.0 MG/DL Alkaline Phosphatase 468 U/L Aspartate Amino Transf (AST/SGOT) 37 U/L Alanine Aminotransferase (ALT/SGPT) 20 U/L Total Bilirubin 0.4 MG/DL Sodium Level 136 MEQ/L 136 MEQ/L Potassium Level 3.8 MEQ/L 3.4 MEQ/L Chloride Level 101 MEQ/L 102 MEQ/L Carbon Dioxide Level 24.1 MEQ/L 25.8 MEQ/L Anion Gap 11 MEQ/L 8 MEQ/L Estimat Glomerular Filtration Rate 36 ML/MIN 39 ML/MIN Microbiology Date/Time Source Procedure Growth Status 04/20/17 09:00 Sputum Endotracheal Gram Stain - Final Resulted 04/20/17 09:00 Sputum Culture - Preliminary Gram Negative Andrés Staphylococcus Aureus Resulted 04/20/17 08:47 Urine Catheterized Urine Urine Culture - Preliminary Yeast-Id To Follow Resulted Imaging Last Impressions Chest X-Ray 04/20/17 0600 Signed Impressions: Service Date/Time: Thursday, April 20, 2017 04:32 - CONCLUSION: Persistent but improving diffuse consolidation likely resenting improving edema. King Brown MD Abdomen X-Ray 04/15/17 1405 Signed Impressions: Service Date/Time: Saturday, April 15, 2017 15:15 - CONCLUSION: 1. Gaseous distension predominantly small bowel as described above. 2. Nasogastric tube does have the stomach decompressed. Everardo Martinez MD FACR Small Bowel X-Ray 04/12/17 0000 Signed Impressions: Service Date/Time: Wednesday, April 12, 2017 14:36 - CONCLUSION: 1. Mild small bowel dilatation without obstruction. Contrast reaches distal colon by 4 hours. Abrahan Gómez MD Head CT 04/10/17 1648 Signed Impressions: Service Date/Time: Monday, April 10, 2017 17:11 - CONCLUSION: 1. No acute intracranial abnormality or significant interval change. Daniel Carvajal MD Abdomen/Pelvis CT 04/10/17 1625 Signed Impressions: Service Date/Time: Monday, April 10, 2017 17:15 - CONCLUSION: Mild fluid and gaseous distention of small bowel, mainly the proximal small bowel. No acute focal findings in the abdomen or pelvis on noncontrast evaluation. King Shi MD Chest CT 04/10/17 0000 Signed Impressions: Service Date/Time: Monday, April 10, 2017 17:15 - CONCLUSION: 1. ETT just above the [place]. 2. Dense right lower lobe airspace consolidation with diffuse patchy nodular airspace disease throughout the remainder of the right lung and at the extreme left lung base. Findings are most consistent with pneumonia, atypical infection or aspiration. 3. No significant effusion or pneumothorax. Daniel Carvajal MD Physical Exam CONSTITUTIONAL/GENERAL: This is a morbidly obese patient, in no apparent distress. Int'd on [facility] vent'n TUBES/LINES/DRAINS: SKIN: No jaundice, rashes, or lesions. Skin temperature appropriate. Not diaphoretic. CARDIOVASCULAR: Regular rate and rhythm without murmurs, gallops, or rubs. No JVD. Peripheral pulses symmetric. RESPIRATORY/CHEST: Symmetric, unlabored respirations. Clear to auscultation. GASTROINTESTINAL: Abdomen soft, no raction to palpation; moderately distended. Less tympanic in mid abdomen No hepato-splenomegaly, or palpable masses. No guarding. Bowel sounds present. GENITOURINARY: Without palpable bladder distension. Cuellar catheter in place; urine is clear light yellow MUSCULOSKELETAL: Extremities without clubbing, cyanosis, severe edema 4+ persists NEUROLOGICAL: off sedation; obtunded PSYCHIATRIC: Unable to assess Assessment & Plan Remarks Assessment and Plan sepsis UTI, Proteus - repeat urine clx neg @ 24 hrs Gross hematuria: resolved Acute VDRF, toleartating CPAP ARF: improving - some eosinophilia is present; resolved on repeat urine New PNA ? - sputum with E.coli - new clx with a GNB Enterococcal high grade bacteremia - S to ampicillin - 2 D echo negative for vegetation - repeat blood clx negative Ileus, now having diarrhea no e/o small bowel obstruction - C.diff negative enteric pathogens negative Critically ill, stable persistent leukocytosis - slowly improving ; ANC down to 17K today (pealked at 25 K on 04/15) Hypothermic - new ? sepsis; hypothermia resolved - repeat BC negative Severe encephalopahty - not waking up off sedation Funguria Rec's: cont cefepime cont unasyn monitor WBC fu blood clx and urine clx fu GNB in sputum monitor temps add fluconazole Vicki Ying MD Apr 22, 2017 15:49
[2017-04-22] MEDS ORDERED: FLUCONAZOLE 200 MG PREMIX BAG 100 ML IV SCH (16:00)
[2017-04-22] MEDS: PANTOPRAZOLE SODIUM 40 MG VIAL IV PUSH SCH (16:22)
--- NOTE | 2017-04-22 18:24 | HHI.NPPN ---
Subjective History of Present Illness 72-year-old female known to me from her last admission when she was admitted in October of this year with past medical history of hypertension, diabetes mellitus, chronic kidney disease, history of cerebrovascular accident, hyperlipidemia, sleep apnea, atrial fibrillation, was admitted with altered mental status. I was called to see the patient because of elevated BUN and creatinine. I saw her when she was here in October and at that time her creatinine was as high as 2.8 and then it improved to around 1.4-1.6, which is probably her baseline. Additional Remarks Patient remain on the vent, has eyes open, not following any commands. Review of Systems General General Remarks Intubated and sedated. Objective Data Data 04/22/17 04/23/17 19:00 07:00 Intake Total 628.8 ml Output Total 1900 ml Balance -1271.2 ml IV Total 508.8 ml Other 120 ml Output Urine Total 1500 ml Stool Total 400 ml Vital Signs Date Time Temp Pulse Resp B/P (MAP) Pulse Ox O2 Delivery O2 Flow Rate FiO2 04/22/17 18:00 89 04/22/17 16:45 103 12 108/59 (75) 100 04/22/17 16:30 98 11 113/58 (76) 100 04/22/17 16:15 87 8 90/50 (63) 100 04/22/17 16:11 87 10 87/52 (64) 100 04/22/17 16:00 98.3 91 8 83/48 (60) 100 04/22/17 16:00 35 04/22/17 16:00 91 04/22/17 15:50 92 7 88/52 (64) 100 04/22/17 15:45 92 8 85/52 (63) 100 04/22/17 15:35 100 35 04/22/17 15:30 89 7 86/52 (63) 100 04/22/17 15:15 92 8 89/54 (66) 100 04/22/17 15:01 93 7 94/56 (69) 100 04/22/17 15:00 94 10 100 04/22/17 14:45 120 16 101/53 (69) 100 04/22/17 14:30 94 8 88/49 (62) 100 04/22/17 14:15 93 11 86/50 (62) 100 04/22/17 14:00 91 10/16/17 14:00 91 7 90/47 (61) 100 04/22/17 13:45 89 8 94/52 (66) 100 04/22/17 13:30 92 6 104/50 (68) 100 04/22/17 13:15 104 15 120/57 (78) 100 04/22/17 13:01 93 11 111/51 (71) 100 04/22/17 13:00 92 11 100 04/22/17 12:30 99 18 99/47 (64) 100 04/22/17 12:15 95 15 88/44 (59) 100 04/22/17 12:00 35 04/22/17 12:00 98.3 98 15 98/51 (67) 100 04/22/17 12:00 92 04/22/17 11:52 100 35 04/22/17 11:46 97 17 100/59 (73) 100 04/22/17 11:30 103 21 118/52 (74) 100 04/22/17 11:15 106 20 113/54 (73) 100 04/22/17 11:00 111 21 121/57 (78) 98 04/22/17 10:01 110 20 135/56 (82) 96 04/22/17 10:00 104 04/22/17 10:00 104 22 96 04/22/17 09:45 102 21 132/57 (82) 97 04/22/17 09:30 109 22 96/59 (71) 98 04/22/17 09:16 108 31 96/69 (78) 100 04/22/17 09:00 110 26 95/52 (66) 100 04/22/17 08:45 102 27 104/54 (71) 100 04/22/17 08:30 106 18 103/53 (70) 100 04/22/17 08:15 107 20 126/59 (81) 100 04/22/17 08:05 103 19 132/60 (84) 100 04/22/17 08:01 98.5 107 15 168/133 (145) 04/22/17 08:00 35 04/22/17 08:00 113 20 100 04/22/17 08:00 113 04/22/17 07:46 100 35 04/22/17 07:45 106 18 119/57 (77) 100 04/22/17 07:39 128 24 127/75 (92) 98 04/22/17 07:30 100 17 80/52 (61) 100 04/22/17 07:15 98 15 96/54 (68) 100 04/22/17 07:00 93 10 97/49 (65) 100 04/22/17 06:00 80 04/22/17 04:40 100 35 04/22/17 04:00 98.7 86 13 97/50 (66) 100 04/22/17 04:00 35 04/22/17 04:00 86 04/22/17 02:00 115 04/22/17 00:00 94 04/22/17 00:00 99.4 94 9 106/58 (74) 99 04/22/17 00:00 35 04/21/17 23:39 100 35 04/21/17 22:00 91 04/21/17 20:00 35 04/21/17 20:00 94 04/21/17 20:00 99.4 94 11 111/53 (72) 100 04/21/17 19:53 100 35 -: 04/22/17 0400 04/22/17 0400 Physical Exam General Appearance Remarks Intubated and sedated. Eyes Eye Exam: Pupils Equal Throat Throat Exam: Oral Mucosa [place] & Moist Neck Neck Exam: Neck Supple Pulmonary Resp Exam: Rhonchi, Decreased Bases, Diminished Breath Sounds, Poor Inspiratory Effort Cardiology CV Exam: Regular, Normal Sinus Rhythm Gastrointestinal/Abdomen GI Exam: Soft, Non-Tender, Bowel Sounds Present, Distended Extremeties Extremities Exam: Moderate Edema, Pitting Edema Neurologic Neuro Exam: Sedated Assessment/Plan Assessment Summary: HIRAM/Acute Renal Failure, Hypotension, CKD Stage III Problem List: (1) Dyspnea ICD Codes: R06.00 - Dyspnea, unspecified Status: Acute (2) Diabetes mellitus ICD Codes: E11.9 - Type 2 diabetes mellitus without complications Status: Chronic (3) Leukocytosis ICD Codes: D72.829 - Elevated white blood cell count, unspecified Status: Resolved (4) Encephalopathy ICD Codes: G93.40 - Encephalopathy, unspecified Status: Acute (5) Pneumonia ICD Codes: J18.9 - Pneumonia, unspecified organism Status: Acute (6) Acute respiratory failure ICD Codes: J96.00 - Acute respiratory failure, unspecified whether with hypoxia or hypercapnia Status: Acute (7) Anemia ICD Codes: D64.9 - Anemia, unspecified Status: Acute (8) Sepsis ICD Codes: A41.9 - Sepsis, unspecified organism Status: Resolved (9) UTI (urinary tract infection) ICD Codes: N39.0 - Urinary tract infection, site not specified Status: Resolved (10) Acute renal failure ICD Codes: N17.9 - Acute kidney failure, unspecified Status: Acute (11) Acute worsening of stage 3 chronic kidney disease ICD Codes: N18.3 - Chronic kidney disease, stage 3 (moderate) Status: Acute Plan Patient has chronic kidney disease. The baseline Creatinine is 1.7-1.8. Now develop HIRAM, possibly related to Hypotension and ATN. Has sepsis and UTI, BP is low, on pressors. Has hematuria, continues with Amicar/ bladder irrigation. Creatinine 1.4 now, stable. Failed weaning, seen by palliative care. Possible Hospice/With drawl. Problem Qualifiers (1) Pneumonia: Qualified Codes: J18.9 - Pneumonia, unspecified organism (2) Acute respiratory failure: Qualified Codes: J96.00 - Acute respiratory failure, unspecified whether with hypoxia or hypercapnia (3) Anemia: Qualified Codes: D64.9 - Anemia, unspecified (4) Sepsis: Qualified Codes: A41.9 - Sepsis, unspecified organism (5) UTI (urinary tract infection): Qualified Codes: N39.0 - Urinary tract infection, site not specified (6) Acute renal failure: Qualified Codes: N17.9 - Acute kidney failure, unspecified Bree Dill MD Apr 22, 2017 18:24
[2017-04-22] MEDS ORDERED: LORazepam 2 MG/ML VIAL IV PUSH ONE ×2 (18:30→18:45)
[2017-04-22] MEDS ORDERED: MORPHINE SULFATE 8 MG/ML INJ IV PUSH ONE (18:30)
[2017-04-22] MEDS ORDERED: HYOSCYAMINE 0.5 MG/ML AMP IV PUSH ONE (18:30)
[2017-04-22] MEDS ORDERED: MORPHINE SULFATE 4 MG/ML INJ IV PUSH ONE (18:45)
[2017-04-22] MEDS ORDERED: MIDAZOLAM HCL 5 MG/ML VIAL (1 ML) ONE (18:55)
[2017-04-22] MEDS ORDERED: FUROSEMIDE 20 MG/2 ML VIAL IV PUSH PRN (19:00)
[2017-04-22] MEDS ORDERED: MORPHINE SULFATE 4 MG/ML INJ IV PUSH PRN (19:00)
[2017-04-22] MEDS ORDERED: HYOSCYAMINE 0.5 MG/ML AMP IV PUSH PRN (19:00)
[2017-04-22] MEDS ORDERED: LORazepam 2 MG/ML VIAL IV PUSH PRN ×2 (19:00)
[2017-04-22] MEDS ORDERED: MORPHINE SULFATE 8 MG/ML INJ IV PUSH PRN (19:00)
[2017-04-22] MEDS ORDERED: ACETAMINOPHEN 650 MG SUPP RECTAL PRN (19:00)
[2017-04-22] MEDS ORDERED: MORPHINE SULFATE 4 MG/ML INJ IV PUSH SCH (20:00)
[2017-04-22] MEDS ORDERED: LORazepam 2 MG/ML VIAL IV PUSH SCH (20:00)
--- NOTE | 2017-04-23 06:22 | DEATH SUM ---
Summary Demographics Date Pronounced : Apr 22, 2017 Time Of : 2009 Preliminary Cause of : Cardiac arrest Elmo Malik MD Apr 23, 2017 06:22
--- NOTE | 2017-04-23 06:27 | HHI.DS ---
Summary Note Date of : Apr 22, 2017 Time Of : 2007 Admission Date Apr 10, 2017 at 16:18 Admitting Diagnosis respiratory failure Diagnosis at Time of : (1) Acute hypoxemic respiratory failure ICD Code: J96.01 - Acute respiratory failure with hypoxia Diagnosis: Principal (2) Septic shock ICD Code: A41.9 - Sepsis, unspecified organism; R65.21 - Severe sepsis with septic shock Diagnosis: Principal (3) Acute encephalopathy ICD Code: G93.40 - Encephalopathy, unspecified Diagnosis: Principal (4) Severe pneumonia ICD Code: J18.9 - Pneumonia, unspecified organism Diagnosis: Principal (5) Bacteremia due to Enterococcus ICD Code: R78.81 - Bacteremia Diagnosis: Principal (6) Urinary tract infection due to Proteus ICD Code: N39.0 - Urinary tract infection, site not specified; B96.4 - Proteus (mirabilis) (morganii) as the cause of diseases classified elsewhere Diagnosis: Principal (7) Atrial fibrillation with RVR ICD Code: I48.91 - Unspecified atrial fibrillation Diagnosis: Principal (8) Acute worsening of stage 3 chronic kidney disease ICD Code: N18.3 - Chronic kidney disease, stage 3 (moderate) Diagnosis: Principal (9) HTN (hypertension) ICD Code: I10 - Essential (primary) hypertension Diagnosis: Secondary (10) History of CVA with residual deficit ICD Code: I69.30 - Unspecified sequelae of cerebral infarction Diagnosis: Secondary (11) PAROXYSMAL ATRIAL FIBRILLATION ICD Code: I48.0 - PAROXYSMAL ATRIAL FIBRILLATION Diagnosis: Secondary Procedures Arterial and central line placement 04/20/17 Brief History The patient is a 72-year-old female with multiple medical comorbidities which include hypertension, diabetes mellitus, hyperlipidemia, obstructive sleep apnea on C-PAP machine at home, COPD, CVA with residual left-sided hemiparesis who presented to [facility] ED with altered mental status and emesis. She was last seen normal 1 day prior to admission. The patient was on non-rebreather mask initially, however, she was intubated with etomidate, succinylcholine and placed on mechanical ventilation. Also she was placed on Versed drip for sedation. ABG post intubation showed acute hypercapnic respiratory failure with a pH of 7.36, CO2 51, pAO2 322, bicarb 28 and saturation 97%. Her laboratory data significant for acute renal failure with a BUN of 91, creatinine 3.65. Lactic acid was 1.9. Also she was found to have leukocytosis with a WBC of 17.1 associated with bandemia of 26. Her urinalysis was positive for leukocyte esterase, moderate blood and many bacteria. Chest x- ray post intubation showed ET tube above the [place], questionable elevation of right hemidiaphragm with subsegmental atelectasis. In the ER she is currently receiving a second liter of IV fluids and received cefepime and vancomycin. A Cuellar was placed in the ER and post placement the patient noted to have hematuria. to her altered mental status she was scheduled to undergo CT scan of the brain without contrast. Of note the patient was on Eliquis for a history of paroxysmal atrial fibrillation. Also a CT scan of the thorax, abdomen , pelvis without contrast were ordered by the ED physician. Most of the history was obtained from reviewing medical records as the patient is intubated and no family members present at the bedside CBC/BMP: 04/22/17 0400 04/22/17 0400 Significant Findings Laboratory Tests Test 04/20/17 08:45 04/20/17 08:47 04/21/17 04:00 04/22/17 04:00 Urine Turbidity HAZY (CLEAR) Urine Occult Blood MOD (NEG) Urine Leukocyte Esterase LARGE (NEG) Urine RBC 30 /hpf (0-3) Urine WBC Clumps FEW (NONE) Urine Bacteria FEW /hpf (NONE) Urine Mucus FEW /lpf (OCC) White Blood Count 20.7 TH/MM3 (4.0-11.0) 21.3 TH/MM3 (4.0-11.0) Red Blood Count 2.40 MIL/MM3 (4.00-5.30) 2.86 MIL/MM3 (4.00-5.30) Hemoglobin 6.8 GM/DL (11.6-15.3) 8.1 GM/DL (11.6-15.3) Hematocrit 21.4 % (35.0-46.0) 25.3 % (35.0-46.0) Mean Corpuscular Hemoglobin Concent 31.9 % (32.0-36.0) Red Cell Distribution Width 19.3 % (11.6-17.2) 17.5 % (11.6-17.2) Neutrophils (%) (Auto) 80.2 % (16.0-70.0) 77.9 % (16.0-70.0) Neutrophils # (Auto) 16.6 TH/MM3 (1.8-7.7) 16.6 TH/MM3 (1.8-7.7) Neutrophils % (Manual) 82 % (16-70) Neutrophils # (Manual) 17.6 TH/MM3 (1.8-7.7) Myelocytes 2 % (0-0) Target Cells 1+ (NORMAL) Stomatocytes 2+ (NORMAL) Blood Urea Nitrogen 45 MG/DL (7-18) 48 MG/DL (7-18) Creatinine 1.41 MG/DL (0.50-1.00) 1.34 MG/DL (0.50-1.00) Random Glucose 134 MG/DL (74-106) 129 MG/DL (74-106) Total Protein 5.6 GM/DL (6.4-8.2) Albumin 1.3 GM/DL (3.4-5.0) Calcium Level 8.2 MG/DL (8.5-10.1) 7.9 MG/DL (8.5-10.1) Alkaline Phosphatase 468 U/L (45-117) Estimat Glomerular Filtration Rate 36 ML/MIN (>89) 39 ML/MIN (>89) Potassium Level 3.4 MEQ/L (3.5-5.1) Imaging Last Impressions Chest X-Ray 04/13/17 0600 Signed Impressions: Service Date/Time: Thursday, April 13, 2017 04:03 - CONCLUSION: Worsening bilateral pulmonary infiltrates. Anthony Duncan Jr., MD Abdomen X-Ray 04/13/17 0600 Signed Impressions: Service Date/Time: Thursday, April 13, 2017 04:10 - CONCLUSION: Unchanged dilated small bowel. Oral contrast reaches the rectal vault. Anthony Duncan Jr., MD Small Bowel X-Ray 04/12/17 0000 Signed Impressions: Service Date/Time: Wednesday, April 12, 2017 14:36 - CONCLUSION: 1. Mild small bowel dilatation without obstruction. Contrast reaches distal colon by 4 hours. Abrahan Gómez MD Head CT 04/10/17 1648 Signed Impressions: Service Date/Time: Monday, April 10, 2017 17:11 - CONCLUSION: 1. No acute intracranial abnormality or significant interval change. Daniel Carvajal MD Abdomen/Pelvis CT 04/10/17 1625 Signed Impressions: Service Date/Time: Monday, April 10, 2017 17:15 - CONCLUSION: Mild fluid and gaseous distention of small bowel, mainly the proximal small bowel. No acute focal findings in the abdomen or pelvis on noncontrast evaluation. King Shi MD Chest CT 04/10/17 0000 Signed Impressions: Service Date/Time: Monday, April 10, 2017 17:15 - CONCLUSION: 1. ETT just above the kimberlyn. 2. Dense right lower lobe airspace consolidation with diffuse patchy nodular airspace disease throughout the remainder of the right lung and at the extreme left lung base. Findings are most consistent with pneumonia, atypical infection or aspiration. 3. No significant effusion or pneumothorax. Daniel Carvajal MD Hospital Course The patient is a 72-year-old female with multiple medical comorbidities which include hypertension, diabetes mellitus, hyperlipidemia, obstructive sleep apnea on C-PAP machine at home, COPD, CVA with residual left-sided hemiparesis who presented to [facility] ED with altered mental status and emesis. She was last seen normal yesterday. The patient was on non-rebreather mask initially, however, she was intubated with etomidate, succinylcholine and placed on mechanical ventilation. Also she was placed on Versed drip for sedation. ABG post intubation showed acute hypercapnic respiratory failure with a pH of 7.36, CO2 51, pAO2 322, bicarb 28 and saturation 97%. Her laboratory data significant for acute renal failure with a BUN of 91, creatinine 3.65. Lactic acid was 1.9. Also she was found to have leukocytosis with a WBC of 17.1 associated with bandemia of 26. Her urinalysis was positive for leukocyte esterase, moderate blood and many bacteria. Chest x-ray post intubation showed ET tube above the [place], questionable elevation of right hemidiaphragm with subsegmental atelectasis. In the ER she is currently receiving a second liter of IV fluids and received cefepime and vancomycin. A Cuellar was placed in the ER and post placement the patient noted to have hematuria. to her altered mental status she was scheduled to undergo CT scan of the brain without contrast. Of note the patient was on Eliquis for a history of paroxysmal atrial fibrillation. Also a CT scan of the thorax, abdomen, pelvis without contrast were ordered by the ED physician. Most of the history was obtained from reviewing medical records as the patient is intubated and no family members present at the bedside 04/11 Patient became hypotensive overnight started on Levophed 15 mics and Vasopressin. Sedated with fentanyl, Diprivan and intubated. Afebrile. BC from yesterday [facility]. 04/12: Currently afebrile. Currently on norepinephrine at 6 mcg/m and vasopressin 0.04 units per minute sedated on the ventilator and propofol and fentanyl drips. Currently undergoing small bowel follow-through. 04/13: Currently on propofol at 9 mcg/kg per minute. Off fentanyl drip. Small bowel follow-through revealed transition to colon at 4 hours. No signs of bowel obstruction. Small bowel is mildly dilatated. Creatinine currently 2.1. Edematous. Vasopressor requirements decreasing. 04/14: Afebrile. Currently on propofol; at 10 g per kilogram per minute. Positive BM. Creatinine Is currently at baseline 1.8. Abdominal x-ray pending 04/15 Remains intubated sedated with propofol. Intermittently follows commands. KUB shows gaseous distention. WBC increased to 28.5 creatinine improving 04/16: Patient remains septic remains on Levophed and vasopressin. Intermittently follows commands with the right upper extremity. WBC count is slightly improved. UO adequate. Failed CPAP trial 04/17: Remains in septic shock on vasopressin unable to wean off. Failed CPAP trials again today. Labs ordered for tomorrow. Appreciate urology reevaluation. Wean to DC Amicar CBI 04/18: Remains encephalopathic failing weaning trials. Vent day 9 without significant improvement. WBC count remains elevated at 25,000. Hematuria has restarted 04/19: WBC, Creatinine slightly improved but clinically remains the same without any improvement in neuro exam. Palliative care meeting with family today. Vent day 10. Remains off sedation approximately 48 hours, but severely encephalopathy 04/20: Despite being off sedation for several days no neurological improvement. Patient remains encephalopathic and lethargic. Not requiring pressors at this time. White count trending up. Again met with daughter yesterday she wants full code. Tentatively plan for tracheotomy Saturday if family wants to continue aggressive care 04/21: Remains off sedation with no significant change in mentation. Received 1 unit PRBC for hemoglobin of 6.8. Family is meeting about goals of care. Wants to meet with palliative care Sunday 04/22: No improvement in mental status of overall clinical status. Remains encephalopathy. On low-dose fentanyl at 50 g per hour Due to know improvement in clinical condition after 2 weeks of aggressive treatment including ventilator support, family decided to withdraw life support to comfort measures. Patient at 2007 on 04/22/17 Elmo Malik MD Apr 23, 2017 06:27
== END 2017-04-22 20:08 | disposition expired | DRG 870 ==
LOC: NEPE 14:57 → NEDA 16:18 → HIMN 17:30
PROVIDERS: ADMIT Internal Medicine Critical Care Medicine; ATTEND Internal Medicine Critical Care Medicine
PROC: 5A1955Z Respiratory Ventilation, Greater than 96 Consecutive Hours (ICD-10-PCS; principal; 2017-04-10)
PROC: 03HY32Z Insertion of Monitoring Device into Upper Artery, Percutaneous Approach (ICD-10-PCS; 2017-04-10)
PROC: 02HV33Z Insertion of Infusion Device into Superior Vena Cava, Percutaneous Approach (ICD-10-PCS; 2017-04-10)
PROC: 0BH17EZ Insertion of Endotracheal Airway into Trachea, Via Natural or Artificial Opening (ICD-10-PCS; 2017-04-10)
PROC: 30233N1 Transfusion of Nonautologous Red Blood Cells into Peripheral Vein, Percutaneous Approach (ICD-10-PCS; 2017-04-11)
DX: A41.81 Sepsis due to Enterococcus (principal); N17.0 Acute kidney failure with tubular necrosis; R65.21 Severe sepsis with septic shock; J15.5 Pneumonia due to Escherichia coli; Z51.5 Encounter for palliative care; G93.41 Metabolic encephalopathy; L89.312 Pressure ulcer of right buttock, stage 2; J96.02 Acute respiratory failure with hypercapnia; J96.01 Acute respiratory failure with hypoxia; L89.322 Pressure ulcer of left buttock, stage 2; E11.22 Type 2 diabetes mellitus with diabetic chronic kidney disease; K56.7 Ileus, unspecified; J44.0 Chronic obstructive pulmonary disease with (acute) lower respiratory infection; E87.1 Hypo-osmolality and hyponatremia; I69.354 Hemiplegia and hemiparesis following cerebral infarction affecting left non-dominant side; N39.0 Urinary tract infection, site not specified; J98.11 Atelectasis; Z68.42 Body mass index [BMI] 45.0-49.9, adult; Z66 Do not resuscitate; I48.0 Paroxysmal atrial fibrillation; G47.33 Obstructive sleep apnea (adult) (pediatric); R31.0 Gross hematuria; N18.9 Chronic kidney disease, unspecified; E83.51 Hypocalcemia; E66.01 Morbid (severe) obesity due to excess calories; D64.9 Anemia, unspecified; E78.5 Hyperlipidemia, unspecified; I12.9 Hypertensive chronic kidney disease with stage 1 through stage 4 chronic kidney disease, or unspecified chronic kidney disease; N18.3 Chronic kidney disease, stage 3 (moderate); E83.39 Other disorders of phosphorus metabolism; E03.9 Hypothyroidism, unspecified; M10.9 Gout, unspecified; E87.6 Hypokalemia; D75.89 Other specified diseases of blood and blood-forming organs; M19.90 Unspecified osteoarthritis, unspecified site; B96.4 Proteus (mirabilis) (morganii) as the cause of diseases classified elsewhere; F17.290 Nicotine dependence, other tobacco product, uncomplicated; F41.9 Anxiety disorder, unspecified; Z22.322 Carrier or suspected carrier of Methicillin resistant Staphylococcus aureus; Z79.01 Long term (current) use of anticoagulants; Z96.641 Presence of right artificial hip joint
CPT/HCPCS: 31500; 36430; 36556; 36600; 43753; 70450; 71010; 71250; 74000; 74176; 74250; 80048; 80053; 80202; 81001; 82550; 82570; 82805; 82948; 83605; 83690; 83735; 83880; 84100; 84132; 84155; 84300; 84484; 85007; 85025; 85027; 85610; 85730; 86403; 86850; 86900; 86901; 86920; 87040; 87070; 87077; 87086; 87147; 87186; 87205; 87328; 87329; 87449; 87493; 87506; 87641; 87804; 93005; 93308; 94002; 94003; 94640; 94664; 96365; 96368; C9113; J0295; J0330; J0456; J0610; J0692; J1450; J1644; J1940; J1980; J2060; J2250; J2270; J2543; J2765; J3010; J3370; J3475; J3480; J7030; J7040; J7042; J7050; J7613; P9016; P9047; Q9963